=== PATIENT | female | born 1965 | race Caucasian/White ===

== ENCOUNTER 2022-10-18 13:07 | Outpatient (OUT) | payer BC, SELFPAY ==
[2022-10-18 15:32] LABS: Basophils Percent Auto 0.6 % (0.2-2.0); Eosinophils Absolute Auto 0.1 10^3/uL (0.0-0.7); Eosinophils Percent Auto 1.1 % (0.9-7.0); Hematocrit 41.7 % (36.0-48.0); Hemoglobin 13.7 g/dL (12.0-16.0); Immature Granulocytes Abs Auto 0.03 10^3/uL (0.00-0.03); Immature Granulocytes Pct Auto 0.5 % (0.0-0.5); Lymphocytes Absolute Auto 1.2 10^3/uL (1.2-3.8); Lymphocytes Percent Auto 19.3 % (20.5-60.0); Mean Corpuscular HGB Conc 32.9 g/dL (29.9-35.2); Mean Corpuscular Hemoglobin 30.4 pg (26.7-34.0); Mean Corpuscular Volume 92.7 fL (81.0-99.0); Mean Platelet Volume 10.9 fL (9.5-13.5); Monocytes Absolute Auto 0.6 10^3/uL (0.3-0.8); Monocytes Percent Auto 9.5 % (1.7-12.0); Neutrophils Absolute Auto 4.4 10^3/uL (1.4-6.5); Platelet Count 249 10^3/uL (150-450); Red Cell Distribution Width 12.3 % (11.0-15.0); White Blood Count 6.4 10^3/uL (4.0-11.0)
[2022-10-18 15:40] LABS: INR 0.93; Partial Thromboplastin Time 31.3 sec (22.3-36.2); Prothrombin Time 9.9 sec (9.0-11.6)
[2022-10-18 22:20] LABS: Anion Gap 13.8; BUN Creatinine Ratio 10.1; Calcium 8.7 mg/dL (8.5-10.1); Carbon Dioxide 26.1 mmol/L (21.0-32.0); Chloride 101 mmol/L (98-107); Estimated GFR (African America >60 (>=60); Estimated GFR (Non-African Ame >60 (>=60); Glucose 121 mg/dL (74-106); Potassium 3.9 mmol/L (3.5-5.1); Sodium 137 mmol/L (136-145)
== END 2022-10-18 13:08 ==
LOC: PST 13:11
PROVIDERS: Urology; PCP Family Medicine
DX: N20.0 Calculus of kidney (principal)
CPT/HCPCS: 36415; 80048; 85025; 85610; 85730

== ENCOUNTER 2022-10-25 12:51 | Day surgery (SDC) | payer BC, SELFPAY ==
[2022-10-18 13:39] VITALS: BMI 28.6
[2022-10-18 16:26] VITALS: BP 146/96; PULSE 93; RESP 18; TEMP 36.4; O2SAT 97
[2022-10-25] VITALS (7 sets, daily range): BP systolic 143–162; BP diastolic 74–95; PULSE 62–79; RESP 10–18; TEMP 36–36.1; O2SAT 96–99; BMI 26.6
[2022-10-25] MEDS: LACTATED RINGER'S SOLUTION 1,000 ML 50 ML IV ×2 (15:59→18:17)
[2022-10-25] MEDS: CEFAZOLIN SODIUM/DEXTROSE 2 GM/50 ML PIGGYBACK IV (16:01)
[2022-10-25] MEDS: IOHEXOL 240 MG/ML - 10 ML VIAL INJ (18:12)
--- NOTE | 2022-10-25 18:20 | P.URON_ITS ---
Urology Surgery Operative Note Operative Note Procedure Date: 10/25/22 Pre-op Diagnosis: Right nephrolithiasis Post-op Diagnosis: Right nephrolithiasis Primary Surgeon: Aubrie Nolasco Procedure performed: Cystoscopy, right retrograde pyelogram, right ureteroscopy with laser lithotripsy, stone basket extraction, ureteral stent placement Anesthesiologist: Joao Jean Time Out Performed: yes Findings: Uneventful laser lithotripsy and basket extraction of 4 stones in kidney ranging from 3-7mm, largest requiring laser lithotripsy to extract. No significant stone fragments remained. R RPG- no hydronephrosis, strictures or extravasation of contrast. Estimated blood loss (mL): 0 DVT Prophylaxis: SCD Post Operative care instructions: Dc home, follow up in 5 days for cysto/stent removal in office Procedure Note Procedure: Indication: 57 year old female with history of recurrent nephrolithiasis including multiple right kidney stones presents for definitive treatment with right ureteroscopy, laser lithotripsy/stone extraction. Risks were discussed to include but not limited to bleeding, pain, infection, damage to surrounding structures, inability to treat the stone, residual fragments, ureteral obstruction, need for stent placement and need for additional procedures. If a stent is placed, the patient understands this is not permanent and needs to be removed or exchanged within 3 months to prevent encrustation, infection, invasive procedures, and/or permanent renal damage. Procedure details: After informed consent was obtained, the patient was brought to the operating room and transferred onto the operating table in supine position. Sequential compression devices were placed on bilateral lower extremities. The patient received the appropriate dose of preoperative IV antibiotics (2g Ancef) and general anesthesia LMA was induced. They were positioned in modified dorsolithotomy with the appropriate pressure points padded, prepped, and draped in the usual sterile fashion for this procedure. An operative safety timeout was performed confirming the patient's identity, laterality and procedure, and all present agreed to proceed. I began by inserting a 22 [place]ic rigid cystoscope with 30 degree lens into the patient's urethra and bladder without difficulty. There were no bladder tumors, lesions or foreign bodies. Bilateral ureteral orifices were orthotopic and vázquez nt. I turned my attention to the right ureteral orifice and a 6- Green[place]ic open- ended catheter was inserted into the ureteral orifice and dilute contrast was injected for retrograde pyelogram with findings above. A sensor wire was inserted into the ureter up to the renal pelvis confirmed on fluoroscopy. An 11/ Green[place]ic by 36 cm ureteral access sheath was inserted over the wire in a sequential fashion under fluoroscopic guidance to gain access to the renal pelvis without difficulty. A flexible ureteroscope was inserted into the sheath and renoscopy was performed with findings above. A 2.4 tipless nitinol basket was used to extract the smaller stones. The larger stone required lithotripsy. A 275 ?m holmium laser fiber was used to break the stone into fragments which were then removed with a 2.4 tipless nitinol basket. After the stone was adequately treated, a full renoscopy was performed confirming no significant residual stones or fragments remained. Contrast was injected to assist with mapping for the renoscopy. The wire was reinserted and a pull down ureteroscopy was performed confirming no stones remained in the ureter. The wire was backloaded through the cystoscope and 4.7Fr x 22-32cm JJ variable length Bard ureteral stent was advanced over the wire, noting adequate curl in the renal pelvis and bladder on fluoroscopic and direct visualization. The bladder was drained and inspected one final time to ensure adequate position of stent and no undue trauma to the bladder was done. The stones were sent for pathology and the cystoscope was removed. The patient tolerated the procedure well without complication. The patient was awakened from anesthesia and sent to PACU in stable condition. Pathology: other (right kidney stones) Condition: stable Disposition: same day
--- NOTE | 2022-10-25 18:37 | PC.NURSE ---
up to bathroom and void bloody urine without clots without difficulty
[2022-10-31 19:08] LABS: Calcium Oxalate Dihydrate 20 % (.); Calcium Oxalate Monohydrate 70 % (.); Calcium phosphate (hydroxyl) 10 % (.)
== END 2022-10-25 18:54 | disposition home or self-care (01) ==
PROVIDERS: PCP Family Medicine; Visit Provider Urology
PROC: (CPT 52356; principal; 2022-10-25 13:50)
DX: N20.0 Calculus of kidney (principal); N32.81 Overactive bladder; C68.0 Malignant neoplasm of urethra; Z79.82 Long term (current) use of aspirin; Z90.710 Acquired absence of both cervix and uterus; N35.82 Other urethral stricture, female; R31.21 Asymptomatic microscopic hematuria; N36.42 Intrinsic sphincter deficiency (ISD); Z87.442 Personal history of urinary calculi
CPT/HCPCS: 52356; 36415; 74420; 82365; 99999; J2704; Q9966

== ENCOUNTER 2022-12-22 13:53 | Outpatient (RCR) | payer BC, SELFPAY ==
[2022-12-22 14:46] LABS: Calcium 8.3 mg/dL (8.5-10.1); Estimated GFR (African America >60 (>=60); Estimated GFR (Non-African Ame 52 (>=60)
[2022-12-22 15:27] VITALS: BP 122/76; PULSE 62; RESP 18; TEMP 37; O2SAT 94
[2022-12-22] MEDS: DENOSUMAB 60 MG/ML SYRINGE SUBQ (15:33)
== END 2023-01-11 17:50 | disposition home or self-care (01) ==
LOC: LAB 13:53
PROVIDERS: PCP Family Medicine; Visit Provider Family Medicine
DX: M85.80 Other specified disorders of bone density and structure, unspecified site (principal)
CPT/HCPCS: 36415; 82310; 82565; 96372; J0897

== ENCOUNTER 2023-06-04 13:25 | Outpatient (OUT) | payer BC, SELFPAY ==
--- NOTE | 2023-06-04 13:31 | XR_ITS ---
The [address] [address] Patient Name: CARMELO CHUNG MRN: [id number] date: 1965 Sex: F Assigned Patient Location: [facility] Current Patient Location: [facility] Accession/Order Number: [id number] Exam Date: 06/04/2023 13:45 Report Date: 06/04/2023 14:13 At the request of: KAILASH TOLEDO Procedure: XR abdomen 1V EXAM: XR abdomen 1V HISTORY: Kidney Stones N20.0 COMPARISON: None. TECHNIQUE: AP view of the abdomen. FINDINGS: Nonobstructive bowel gas pattern is noted. There is no suspicious calcification. The osseous structures are intact. XR/XR abdomen 1V IMPRESSION: Nonobstructive bowel gas pattern. Constipation. No suspicious renal calcification. Electronically authenticated by: LUDMILA KWAN Date: 06/04/2023 14:13
== END 2023-06-04 13:26 | disposition home or self-care (01) ==
LOC: RAD 13:27
PROVIDERS: PCP Family Medicine; Visit Provider Physician Assistant
DX: N20.0 Calculus of kidney (principal)
CPT/HCPCS: 74018

== ENCOUNTER 2023-06-06 09:28 | Outpatient (OUT) | payer BC, SELFPAY ==
--- NOTE | 2023-06-06 09:31 | US_ITS ---
[place] [id number] Patient Name: CARMELO CHUNG MRN: [id number] date: 1965 Sex: F Assigned Patient Location: [place] Current Patient Location: [place] Accession/Order Number: [id number] Exam Date: 06/06/2023 09:32 Report Date: 06/06/2023 10:35 At the request of: KAILASH TOLEDO Procedure: US renal BI EXAMINATION: US renal BI HISTORY: Kidney Stone N20.0 COMPARISON: No relevant comparison available. TECHNIQUE: Ultrasound examination was performed of the bladder. FINDINGS: Right Kidney: Normal in size and contour. The cortex measures 0.8 cm. No hydronephrosis, solid cortical mass or obstructing nephrolithiasis Height: 4.5 cm Length: 9.5 cm Width: 5.7 cm Left Kidney: Normal in size and contour. The cortex measures 0.8 cm. No hydronephrosis or solid cortical mass. Multiple echogenic foci measuring up to 6 mm, nonobstructing nephrolithiasis Height: 4.0 cm Length: 9.4 cm Width: 4.2 cm The urinary bladder measures 5.0 x 5.6 x 4.0 cm a volume of 78 mL US/US renal BI IMPRESSION: Nonobstructing left nephrolithiasis Electronically authenticated by: BENI ORTIZ Date: 06/06/2023 10:35
--- OUTSIDE RECORDS SUMMARY | 2023-06-06 09:32 | XMS_ITS | CCD ---
Author Name Unknown Address [address] [facility] [address] [place] [address] Organization [facility] Care Team Providers Care Revenue Director Name Role Phone Phillip Unger Primary Care Physician LUE ., AUBRIE M Attending Unavailable LUE ., AUBRIE M Admitting Unavailable HOY ., DR FISHER Primary Care Unavailable DIAB ., CHANEL Attending Unavailable HOLiz ., DR FISHER Primary Care Unavailable SHIRLENE, FRANCK Consulting Unavailable DIAB ., CHANEL Admitting Unavailable SOPHIA . NATALIO Consulting Unavailable DIAB ., CHANEL Consulting Unavailable ZOHREH .DR FISHER Primary Care Unavailable EUGENIO DIAMOND Attending Unavailable EUGENIO DIAMOND Admitting Unavailable LUE ., AUBRIE M Attending Unavailable LUE ., AUBRIE M Admitting Unavailable HOY .DR FISHER Primary Care Unavailable LUE ., AUBRIE M Consulting Unavailable LUE ., AUBRIE M Attending Unavailable LUE ., AUBRIE M Admitting Unavailable LUE ., AUBRIE M Consulting Unavailable HOY .DR FISHER Primary Care Unavailable ERMA ISSA Consulting Unavailable JEMMA GANNON Consulting Unavailable LUE ., AUBRIE M Attending Unavailable LUE ., AUBRIE M Admitting Unavailable HOY .DR FISHER Primary Care Unavailable LUE ., AUBRIE M Consulting Unavailable LUE ., AUBRIE M Consulting Unavailable LUE ., AUBRIE M Attending Unavailable LUE ., AUBRIE M Admitting Unavailable HOY .DR FISHER Primary Care Unavailable CLARISSA VILLALTA Consulting Unavailable ZOHREH .DR FISHER Primary Care Unavailable DR JUDSON ENGLISH Consulting Unavailable ANABEL LOPEZ Attending Unavailable ANABEL LOPEZ Admitting Unavailable ANABEL LOPEZ Consulting Unavailable ZOHREH .DR FISHER Consulting Unavailable HOY ., DR FISHER Attending Unavailable HOY ., DR FISHER Admitting Unavailable HOY ., DR FISHER Primary Care Unavailable NADEGE GANNON Consulting Unavailable KAILASH TOLEDO Attending Unavailable KAILASH TOLEDO Admitting Unavailable HOY ., DR FISHER Primary Care Unavailable TAMEKA, DR JUDSON Valera Consulting Unavailable KAILASH TOLEDO Consulting Unavailable HOY ., DR FISHER Primary Care Unavailable GINO Velez, DR TRACY Sexton Attending Unavaila ble GINO ROE ., DR TRACY Sexton Admitting Unavaila ble ZOHREH ., DR FISHER Primary Care Unavailable LOBO, EUGENIO Raya Attending Unavailable HIGHLANDER, EUGENIO Raya Admitting Unavailable HOY ., DR FISHER Consulting Unavailable HOY ., DR FISHER Attending Unavailable HOY ., DR FISHER Admitting Unavailable HOY ., DR FISHER Primary Care Unavailable HOY ., DR FISHER Consulting Unavailable HOY ., DR FISHER Attending Unavailable HOY ., DR FISHER Admitting Unavailable HOY ., DR FISHER Primary Care Unavailable [place], DR BENI Lugo Consulting Unavailable LUE ., AUBRIE Fernandez Attending Unavailable LUE ., AUBRIE Fernandez Admitting Unavailable [place], DR BENI Lugo Consulting Unavailable HOY ., DR FISHER Primary Care Unavailable LUE ., AUBRIE Fernandez Consulting Unavailable HOY ., DR FISHER Primary Care Unavailable [place], DR BENI Lugo Consulting Unavailable MIRZAANDER, EUGENIO Raya Attending Unavailable HIGHLANDER, EUGENIO D Admitting Unavailable HIGHLANDER, PETER D Consulting Unavailable Lue, Aubrie M. Referring Unavailable Lue, Aubrie M. Admitting Unavailable Lue, Aubrie M. Attending Unavailable Lue, Aubrie M. Attending Unavailable Lue, Aubrie M. Attending Unavailable Lue, Aubrie M. Attending Unavailable Lue, Aubrie M. Attending Unavailable Lue, Aubrie M. Attending Unavailable Lue, Aubrie M. Attending Unavailable Lue, Aubrie M. Attending Unavailable Allergies Allergy Classification Reported Allergen(s) Allergy Type Date of Onset Reaction(s) Facility (1 source) No Known Medication Allergies; 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: [No Known Medication Allergies] Propensity to adverse reactions (disorder) [facility] Repository Medications Current Medications Medication Drug Class(es) Dates Sig (Normalized) Sig (Original) ALPRAZolam 0.25 mg oral tablet (2 sources) Benzodiazepine Start: 03-24-2022 take 4 tablets by mouth every eight hours Xanax 0.25 mg Tab mg tab(s), Oral, q8hr, Refills(s) 0 Start Date: 03/24/22 Status: Ordered ARIPiprazole 2 mg oral tablet (5 sources) Atypical Antipsychotic Start: 06-16-2022 take 1 mg by mouth once daily Abilify 2 mg Tab mg tab(s), Oral, Daily Start Date: 06/16/22 Status: Ordered aspirin 81 mg chewable tablet (2 sources) Platelet Aggregation Inhibitor, Nonsteroidal Anti-inflammatory Drug Start: 08-09-2021 take 1 tablet by mouth once daily Aspirin 81 mg Tab-Chew 81 mg = 1 tab(s), Oral, Daily, Refills(s) 0 Start Date: 08/09/21 Status: Ordered Aspirin 81 mg Tab-Chew (5 sources) Start: 08-09-2021 take 1 tablet by mouth once daily Aspirin 81 mg Tab-Chew 81 mg = 1 tab(s), Oral, Daily, Refills(s) 0 Start Date: 08/09/21 Status: Ordered diazePAM 10 mg oral tablet (1 source) Benzodiazepine Start: 03-24-2022 take 1 tablet by mouth once as needed for anxiety Valium 10 mg Tab 10 mg = 1 tab(s), Oral, Once, PRN for anxiety, Take one hour before procedure, # 1 tab(s), Refills(s) 0, Pharmacy: [facility] [id number], 161, cm, 03/24/22 13:34:00 EST, Height/Length Dosing, 65, kg, 05/10/21 12:23:00 EST, Weight Dosing Start Date: 03/24/22 Status: Ordered escitalopram 10 mg oral tablet (7 sources) Serotonin Reuptake Inhibitor Start: 06-03-2020 take 1 tablet by mouth once daily Lexapro 10 mg Tab 10 mg = 1 tab(s), Oral, Daily Start Date: 06/03/20 Status: Ordered estradiol 0.1 mg/ml vaginal cream (7 sources) Estrogen Start: 06-16-2022 Estrace 0.1 mg/g Cream See Instructions, 42.5 gm, Refill(s) 3, Apply pea sized amount to urethra/vagina 3-5x/week x 2 weeks, then 2x weekly thereafter, [facility] [id number], 161, cm, 06/16/22 11:27:00 EST, Height/Length Dosing, 70.1, kg, 06/16/22 11:27:00 EST, Weight Dosing Start Date: 06/16/22 Status: Ordered Start: 01-28-2021 Estrace 0.1 mg /g Cream 1 gm, Topical, MonWedFri, 42.5 gm, Refill(s) 11, Apply peasize amount to urethral/vaginal area M-W-F for two weeks. Then twice weekly after., [facility]/pharmacy #[id number], 163, cm, 01/28/21 9:13:00 EDT, Height/Length Dosing, 65, kg, 01/28/21 9:13:00 EDT, Weigh... Start Date: 01/28/21 Status: Ordered Start: 01-28-2021 Estrace 0.1 mg /g Cream 1 gm, Topical, MonWedFri, 42.5 gm, Refill(s) 11, Apply peasize amount to urethral/vaginal area M-W-F for two weeks. Then twice weekly after., [facility]/pharmacy #[id number], 163, cm, 01/28/21 9:13:00 EDT, Height/Length Dosing, 65, kg, 01/28/21 9:13:00 EDT, Weigh... Start Date: 01/28/21 Status: Ordered hydroCHLOROthiazide 12.5 mg oral capsule (5 sources) Thiazide Diuretic Start: 10-11-2022 take 1 mg by mouth once daily hydrochlorothiazide 12.5 mg Cap mg cap(s), Oral, Daily, Refills(s) 0 Start Date: 10/11/22 Status: Ordered Start: 08-10-2020 take 1 tablet by robyn once daily hydrochlorothiazide 25 mg oral tablet 25 mg = 1 tab(s), Oral, Daily, # 90 tab(s), Refills(s) 3, Pharmacy: [facility]/pharmacy #[id number], 163, cm, 08/10/20 15:02:00 EDT, Height/Length Dosing, 65.5, kg, 08/10/20 15:02:00 EDT, Weight Dosing Start Date: 08/10/20 Status: Ordered metaproterenol (2 sources) beta2-Adrenergic Agonist Start: 03-24-2022 take 1 mg by mouth every six hours metaproterenol mg, Oral, q6hr, Refills(s) 0 Start Date: 03/24/22 Status: Ordered 24 hr mirabegron 50 mg extended release oral tablet (5 sources) beta3-Adrenergic Agonist Start: 06-16-2022 End: 05-30-2024 take 1 tablet by mouth once daily Myrbetriq 50 mg oral tablet, extended release 50 mg = 1 tab(s), Oral, Daily, X 30 day(s), # 30 tab(s), Refills(s) 11, Pharmacy: [facility] [id number], 161, cm, 06/05/23 9:09:00 EST, Height/Length Dosing, 78, kg, 06/05/23 9:09:00 EST, Weight Dosing Start Date: 06/05/23 Stop Date: 05/30/24 Status: Ordered mirtazapine 30 mg oral tablet (5 sources) Start: 06-16-2022 take 1 mg by mouth once daily at bedtime Remeron 30 mg Tab mg tab(s), Oral, Once a day (at bedtime) Start Date: 06/16/22 Status: Ordered solifenacin succinate 5 mg oral tablet (1 source) Cholinergic Muscarinic Antagonist Start: 06-14-2021 take 1 tablet by mouth once daily Vesicare 5 mg Tab 5 mg = 1 tab(s), Oral, Daily, # 30 tab(s), Refills(s) 2, Pharmacy: [facility]/pharmacy #[id number], 163, cm, 01/28/21 9:13:00 EDT, Height/Length Dosing, 65, kg, 05/10/21 12:23:00 EST, Weight Dosing Start Date: 06/14/21 Status: Ordered Vitamin D (6 sources) Start: 03-24-2022 Vitamin D International_Unit , Oral, qWeek, Refills(s) 0 Start Date: 03/24/22 Status: Ordered Completed/Discontinued Medications Medication Drug Class(es) Dates Sig (Normalized) Sig (Original) cephalexin 500 mg oral capsule (1 source) Cephalosporin Antibacterial Start: 03-24-2022 take 1 capsule by mouth every twelve hours Keflex 500 mg Cap 500 mg = 1 cap(s), Oral, q12hr, Take one cap morning of the procedure and one cap 12 hours later, # 2 cap(s), Refills(s) 0, Pharmacy: [facility] [id number], 161, cm, 11/11/22 13:34:00 EST, Height/Length Dosing, 65, kg, 05/10/21 12:23:00 EST, Weight... 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 Essential hypertension (1 source) Essential (primary) hypertension; 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: [ESSENTIAL PRIMARY HYPERTENSION] Onset: 06-27-2022 Chronic Fracture of lower limb (4 sources) Displaced avulsion fracture (chip fracture) of left talus, initial encounter for closed fracture; 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: [DSPL AVUL FX LT TALUS INIT CLOS FX] Onset: 08-02-2022 Episodic Genitourinary congenital anomalies (1 source) Medullary cystic kidney; 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: [MEDULLARY CYSTIC KIDNEY] Onset: 06-28-2022 Chronic Genitourinary symptoms and ill-defined conditions (15 sources) Incontinence; 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: [Urinary incontinence] Onset: 06-28-2022 06-03-2020 Chronic Genitourinary symptoms and ill-defined conditions (20 sources) Nocturia; 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: [Nocturia] Onset: 08-09-2021 Episodic Hyperplasia of prostate (7 sources) Benign prostatic hypertrophy with outflow obstruction 08-10-2020 Chronic Nutritional deficiencies (1 source) Vitamin D deficiency, unspecified; 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: [VITAMIN D DEFICIENCY UNSPECIFIED] Onset: 07-25-2022 Chronic Osteoarthritis (5 sources) Primary osteoarthritis, left ankle and foot; 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: [Unspecified osteoarthritis, unspecified site] Onset: 06-27-2022 Chronic Other connective tissue disease (1 source) Myalgia, unspecified site; 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: [MYALGIA UNSPECIFIED SITE] Onset: 07-25-2022 Episodic Other diseases of bladder and urethra (5 sources) Detrusor overactivity; 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: [Overactive bladder] Onset: 08-09-2021 Chronic Other diseases of bladder and urethra (7 sources) Contracture of bladder neck 08-10-2020 Chronic Other diseases of bladder and urethra (7 sources) Overactive bladder 05-10-2021 Chronic Other diseases of bladder and urethra (1 source) Overactive bladder; 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: [OVERACTIVE BLADDER] Onset: 06-28-2022 Chronic Other diseases of bladder and urethra (12 sources) Urethral stricture; 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: [Other urethral stricture, female] Onset: 08-09-2021 Episodic Other diseases of bladder and urethra (2 sources) Incompetent urethral closure mechanism; 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: [Intrinsic sphincter deficiency (ISD)] Onset: 10-11-2022 Episodic Other diseases of bladder and urethra (5 sources) Urethral intrinsic sphincter deficiency; 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: [Intrinsic sphincter deficiency (ISD)] Onset: 06-05-2023 10-11-2022 Episodic Other non-traumatic joint disorders (4 sources) Other specified arthritis, left ankle and foot; 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: [OTHER SPEC ARTHRITIS LT ANKLE FOOT] Onset: 07-20-2022 Chronic Other non-traumatic joint disorders (1 source) Pain in unspecified joint; 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: [PAIN IN UNSPECIFIED JOINT] Onset: 07-25-2022 Episodic Sprains and strains (4 sources) Sprain of unspecified ligament of left ankle, initial encounter; 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: [SPRAIN UNS LIGAMENT LT ANKLE INIT] Onset: 07-27-2022 Episodic Unclassified (5 sources) Asymptomatic microscopic hematuria 06-16-2022 Past or Other Problems Problem Classification Problem Date Documented Da te Episodic/Chronic Other aftercare (1 source) Other oysterman (current) drug therapy; 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: [OTH LONGTERM CURRENT DRUG THERAPY] Onset: 06-27-2022 Episodic Other aftercare (1 source) [facility] (current) use of aspirin; 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: [LONGTERM CURRENT USE OF ASPIRIN] Onset: 06-28-2022 Episodic Other diseases of bladder and urethra (1 source) Other urethral stricture, female; 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: [OTHER URETHRAL STRICTURE FEMALE] Onset: 06-28-2022 Episodic Other diseases of bladder and urethra (4 sources) Unspecified urethral stricture, female; 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: [UNSP URETHRAL STRICTURE FEMALE] Onset: 04-12-2022 Episodic Other non-traumatic joint disorders (1 source) Pain in unspecified hip; 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: [PAIN IN UNSPECIFIED HIP] Onset: 07-14-2022 Episodic Residual codes; unclassified (1 source) Acquired absence of other specified parts of digestive tract; 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: [ACQ ABSENCE OTH PART DIGESTV TRACT] Onset: 06-27-2022 Episodic Residual codes; unclassified (1 source) Acquired absence of both cervix and uterus; 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: [ACQUIRED ABSENCE BOTH CERVIX AND UTERUS] Onset: 06-28-2022 Episodic Results Test Name Value Interpretation Reference Range Facility Patient Letter FTon 2022 Patient Letter [facility] March 27, 2023 ELI CHUNG [address] [place] [phone] : 1965 Sent via certified and regular mail Dear Eli, I am corresponding to you by certified mail because you have a medical condition, history of kidney stone with hydronephrosis which requires follow up. It was recommended that you follow up with me with a renal ultrasound and metabolic work up so that I may conclude your treatment for kidney stones. My office has tried contacting you on 01/03/23, 01/17/23 and via letter on 02/21/23 and we have not received a response. Risk's of not following up and completing recommended testing include renal damage, silent ureteral obstruction post stent removal. Please contact my office at your earliest convenience and we will reschedule your appointment/testing so I can closely monitor your condition. I cannot be responsible for your urologic care if you do not follow up as recommended. Non compliance may result in dismissal from the practice. Thank you for your prompt attention to this matter. Sincerely, Dr. Aubrie Nolasco MD [facility] [address] [facility], [place] [address] Aubrie Nolasco M.D. [facility] [place] [address] [place] [address] [facility] Reminderson 03-27-2023 Reminders - From: Patricia Campoverde To: BRANDAN Nolasco; Sent: 10/30/2022 10:33:15 EDT Show up: 11/27/2022 00:00:00 EDT Subject: schedule FERNY Reminder/Recall called and schedule FERNY @ [facility] for patient at end of November 2022 - From: Elham López (EU - Recalls Gaurav) To: Aubrie Nolasco MD; Patricia Campoverde; Sent: 12/07/2022 16:12:12 EDT Show up: 12/07/2022 16:06:00 EDT Subject: RE: schedule FERNY Per op note from 10/30/22 pt is to follow up with FERNY in 6wks. No follow up nor FERNY scheduled. Next available appt 01/12/23. How would you like to proceed? - From: Aubrie Nolasco MD To: EU - Recallluis Nolasco; Cc: Patricia Campoverde; Sent: 12/18/2022 19:23:19 EDT Show up: 12/18/2022 19:23:00 EDT Subject: RE: schedule FERNY Call pt to schedule renal US and ensure she completes her metabolic stone workup as discussed at her cysto/stent removal. Schedule follow up afterwards to review. called patient, left message. FERNY order faxed to [facility] to be scheduled. Called pt and left VM to return our call and let us know if she has completed metabolic w/u or FERNY patient still has not called office, Sent unable to contact letter. If no response, will send certified. certified/non certified letter prepared and mailed to patient [facility] Provider Letteron 02-21-2023 Provider Letter February 21, 2023 ELI CHUNG [address] [place] [id number] : 1965 Dear Eli , We have been trying to reach you with no success. It is important that you return our call regarding your Follow up with renal ultrasound post stent removal upon receiving this letter. Also, at the time of your call, please provide us with your current information. Thank you for your prompt attention to this matter. Sincerely, Dr. Aubrie Nolasco MD [facility] [address] [facility], [place] [address] [facility] Lab Reportson 11-05-2022 Lab Reports [id number] #1.00CD:127 [facility] Pre-Certification Formon Pre-Certification Form [id number] 1#1.00CD:127 [facility] Operative Reporton Operative Report [id number]# 1.00CD:127 [facility] Consent for Procedure/Surger yon 10-30-2022 Consent for Procedure/Surgery [id number]# 1.00CD:127 [facility] Consent for Treatmenton 10-12 Consent for Treatment [id number] #1.00CD:127 [facility] Inpatient Patient Summaryon 10-30-2022 Inpatient Patient Summary [address] [address] Clinical Summary Person Information Name: ELI CHUNG Age: 57 Years : 1965 Sex: Female PCP: Phillip Unger MD Marital Status: Race: White Ethnicity: Non- or Language: Maori Visit Id: Visit Reason: KIDNEY STONE Speciality: Acuity: Enc Type: Outpatient Med Service: Surgery Arrival: 10/30/2022 08:56:54 Discharge: Dispo Type: Address: [address] [place] [id number] Provider Notes: Diagnosis: Intrinsic sphincter deficiency (ISD); Kidney stone Problems Active Intrinsic sphincter deficiency (ISD) Asymptomatic microscopic hematuria Urinary incontinence OAB (overactive bladder) Incomplete bladder emptying Proteinuria Other urethral stricture, female Urethra cancer Dysuria Microscopic hematuria Kidney stone Mixed incontinence Smoking Status: Functional Status: Sensory Deficits: History of Falls: Mobility Assistance Prior to Admission: ADLs: Current Level of Assistance for Self-Care/Mobility: Cognitive Status: Allergies No Known Medication Allergies Laboratory or Other Results This Visit (last charted value for your 10/30/2022 visit) No Laboratory or Other Results This Visit Measurements: Height: 161 cm Weight: Blood Pressure: Not Valued / Not Valued BMI: Procedures No Procedures Documented Immunizations No Immunizations Documented This Visit Final Med List: aripiprazole (Abilify 2 mg Tab) By Mouth every day. aspirin (Aspirin 81 mg Tab-Chew) 1 Tablets By Mouth every day. ergocalciferol (Vitamin D) By Mouth every week. escitalopram (Lexapro 10 mg Tab) 1 Tablets By Mouth every day. estradiol topical (Estrace 0.1 mg/g Cream) Apply pea sized amount to urethra/vagina 3-5x/week x 2 weeks, then 2x weekly thereafter. Refills: 3. hydrochlorothiazide (hydrochlorothiazide 12.5 mg Cap) By Mouth every day. mirabegron (Myrbetriq 50 mg oral tablet, extended release) 1 Tablets By Mouth every day for 30 Days. Refills: 11. mirtazapine (Remeron 30 mg Tab) By Mouth once a day (at bedtime). Care Team Members: Attending Physician: Aubrie Nolasco MD Consulting Physician: Referring Physician: Aubrie Nolasco MD Follow up: With: Address: When: Aubrie Nolasco [address], [address] [place] [phone] Business (1) [address] [place] [address], [facility] [address] [place] [id number] [phone] Business (1) Comments: Office will schedule Bulkamid and follow up renal US in 6 wks Patient Education Information: EU - Cystoscopy with Stent Removal Discharge Instructions (CUSTOM); EU - Cystoscopy Discharge Instructions (CUSTOM) Normal [facility] IntraOperative Documentson 0 10-30-2022 IntraOperative Documents [id number]# 1.00CD:127 Normal [facility] Main OR Intraoperative Recor don 10-30-2022 Main OR Intraoperative Record IntraOp Document Type FTURO Summary Primary Physician: Aubrie Nolasco MD Finalized Date/Time: 10/30/22 10:26:17 Pt. Name: ELI CHUNG Cordell Ricks/Sex: 1965 Female Med Rec #: [id number] Physician: Aubrie Nolasco MD Financial #: [id number] Pt. Type: O Room/Bed: / Admit/Disch: 10/30/22 08:56:54 - Institution: Case Times FTURO Entry 1 Patient Times In Room 10/30/22 10:01:00 Out Room 10/30/22 10:22:00 Procedure Times Start 10/30/22 10:10:00 Stop 10/30/22 10:17:00 Anesthesia Times Last Modified By: Leta CORRAL, JARREDOR, Karyn 10/30/22 10:15:38 Case Attendance FTURO Entry 1 Entry 2 Entry 3 Case Attendee Aubrie Nolasco MD RN, JARREDOR, Peace Ji Role Performed Surgeon - Primary Brush Or Broom Cutter - Primary Scrub - Primary Time In 10/30/22 10:01:00 10/30/22 10:01:00 10/30/22 10:01:00 Time Out 10/30/22 10:22:00 10/30/22 10:22:00 10/30/22 10:22:00 Procedure CYSTOSCOPY LOCAL WITH CYSTOSCOPY LOCAL WITH CYSTOSCOPY LOCAL WITH STENT REMOVAL(Right) STENT REMOVAL(Right) STENT REMOVAL(Right) Comments Last Modified By: Leta CORRAL, JARREDOR, Leta RN, JARREDOR, Leta RN, JARREDOR, Karyn 10/30/22 Karyn 10/30/22 Karyn 10/30/22 10:15:40 10:15:40 10:15:40 Surgical Procedures FTURO Entry 1 Procedure Description Procedure CYSTOSCOPY LOCAL WITH Modifiers Right STENT REMOVAL Surgeon Description CYSTO RIGHT STENT REMOVAL Primary Procedure Yes Primary Surgeon Aubrie Nolasco MD Start 10/30/22 10:10:00 Stop 10/30/22 10:17:00 Anesthesia Type Local Surgical Service Urology Wound Class 2 - Clean-Contaminated Last Modified By: Leta CORRAL, JARREDOR, Karyn 10/30/22 10:15:43 General Case Data FTURO Pre-Care Text: Classifies surgical wound, implements aseptic technique, initiates traffic control Entry 1 Case Information OR URO 1 FT Case Level None Wound Class 2 - Clean-Contaminated Specialty Urology Preop Diagnosis KIDNEY STONE with stent Postop Same As Preop No placement Postop Diagnosis KIDNEY STONE with stent Outcomes Met? Yes placement Last Modified By: MIREYA Gillette RN, Ruthann 10/30/22 09:13:54 Post-Care Text: The patient is free from signs and symptoms of infection EU IntraOp - FTURO Pre-Care Text: Implements protective measures prior to operative or invasive procedure, confirms identity before the operative or invasive procedure, verifies operative procedure, surgical site, and laterality Entry 1 EU Perioperative Protocols Procedure(s) CYSTOSCOPY LOCAL WITH Patient Identity Birthday, ID Band STENT REMOVAL(Right) Verified (select at Check, Patient least 2): Participation Consents / H and P HandP, Surgery/Procedure Operative Site N/A Verified Consent Marking Verified Surgical Site Yes Laterality Verified n/a Verified Procedure Verified Yes Correct Patient Yes Position Verified Availability Equipment, Medication Time Out Aubrie Nolasco MD, Verified (If Participants Leta CORRAL, JARREDOR, Applicable) Garrison Boss Jessica D Time Out Complete 10/30/22 10:02:00 Allergies Reviewed? Yes Allergies Reviewed Self/Patient With Body Position Frog Legged Prep Area perineala area Prep Agents Betadine Solution Skin. Condition Unable to Visualize Additional None Specimens Collected Vitals - EU Blood Pressure 149/93 Pulse 68 bpm Respirations 16 br/min SPO2 EBL 0 IandO - EU Total Intake 0 mL Total Output 0 mL Outcomes Met? Yes Last Modified By: MIREYA Gillette RN, Ruthann 10/30/22 10:02:54 Post-Care Text: The patient is free from signs and symptoms of injury caused by extraneous objects Sign Out FTURO Entry 1 Before Patient Leaves OR Nurse verbally Yes Nurse verbally n/a confirms with the confirms with the team the name of team that the procedure(s) instrument, sponge, recorded and needle counts are correct (or N/A) Nurse verbally n/a Nurse verbally n/a confirms with the confirms with the team how the team whether there specimen is labeled are any equipment (including patient problems to be name), if applicable addressed Sign Out Complete 10/30/22 10:18:00 Last Modified By: MIREYA Gillette RN, Ruthann 10/30/22 10:15:55 Case Comments Finalized By: MIREYA Gillette RN, Ruthann Document Signatures Signed By: MIREYA Gillette RN, Ruthann 10/30/22 10:15 MIREYA Gillette RN, Ruthann 10/30/22 10:26 Normal [facility] Main OR Preoperative Recordo n 10-30-2022 Main OR Preoperative Record Holding Area Document Type FTURO Summary Primary Physician: Aubrie Nolasco MD Finalized Date/Time: 10/30/22 09:16:09 Pt. Name: ELI CHUNG Cordell Ricks/Sex: 1965 Female Med Rec #: [id number] Physician: Aubrie Nolasco MD Financial #: [id number] Pt. Type: O Room/Bed: / Admit/Disch: 10/30/22 08:56:54 - Institution: Case Times Holding FTURO Pre-Care Text: Verifies consent for planned procedure, identifies individual values and wishes concerning care, includes family members in perioperative teaching Secures patient's records' belongings, and valuables, maintains patient's dignity and privacy, and maintains patient confidentiality Entry 1 In Holding 10/30/22 09:02:00 Outcomes Met? Yes Last Modified By: Kim Peña RN 10/30/22 09:02:38 Post-Care Text: The patient participates in decisions affecting his or her perioperative plan of care The patient's right to privacy is maintained Surgery Checklist FTURO Entry 1 Patient Birthday, ID Band Procedure History and Physical, Identification: Check, Patient Verification: Surgical Consent, With Participation Patient NPO after Midnight: n/a Personal Items: Contact Lenses, Jewelry Personal Items watch x 1; rings x 4 Limitations: up ad aimee Comment: and necklace x 1 Complaints of Pain: No Pain Comment: 0/10 Skin Integrity Dry, Warm Vitals - EU Blood Pressure 149/93 Pulse 68 bpm Respirations 16 br/min SPO2 97 % Additional None RN Reviewed Yes Specimens Collected Last Modified By: Kim Peña RN 10/30/22 09:08:29 Finalized By: MIREYA Gillette RN, Karyn Document Signatures Signed By: Kim Peña RN 10/30/22 09:11 Kim Peañ RN 10/30/22 09:08 Kim Peña RN 10/30/22 09:08 MIREYA Gillette RN, Ruthann 10/30/22 09:16 Normal [facility] Operative Reporton 3 Operative Report Patient: ELI CHUNG Age: 57 years Sex: Female : 1965 Associated Diagnoses: None Author: Aubrie Nolasco MD Procedure Operative Information Details: Date/ Time: 10/30/2022 10:21:00. Pre-Op Dx: Kidney stone ([id number]-XY N20.0, Discharge, Medical), Foreign Body in Bladder - T19.1XXA. Post-Op Dx: Same. Anesthesia Type: Local. Procedure: Local Cystoscopy with Stent Removal. Complications: None. Risks/Benefits/Infor med Consent: Surgical risks, benefits, details of the procedure have been explained to the patient, Full informed consent has been obtained. Intraoperative Information Prepped: The patient was placed in supine position, The patient was prepped with the Betadine solution. Anesthesia: 2% Xylocaine Jelly per urethra. Procedure: Cystoscopy and Right Stent Removal, The flexible Cystoscope was passed in retrograde fashion into the bladder without difficulty, The bladder was viewed in entirety and found to be without tumors or stones, Mild inflammation was seen surrounding the orifice with the stent seen protruding from it, The stent was then grasped and removed in its entirety. Specimens Removed: None. Devices Implanted: None. Vaginal examination: Vaginal mucosa: There is moderate vaginal atrophy The urethra is patent, orthotopic. There are no masses or lesions. There is no urethral hypermobility and FRANCISCA is seen with sitting up and valsalva She is able to correctly identify her pelvic muscles with coaching No significant pelvic organ prolapse . Postoperative Information Discharge: The patient tolerated the procedure well and was subsequently discharged home. Follow up in 6 wks with renal US and metabolic stone workup See separate clinic note regarding discussion of separate issue- ISD with leakage, pt desires to proceed with Bulkamid. Normal [facility] Comment on above: Result Comment: Elec tronically Signed By: Aubrie Nolasco MD\.br\Date and Time Signed: 10/30/22 10:23 EDT Outpatient Surgery Discharge Instructionon 10-30-2022 Outpatient Surgery Discharge Instruction [id number]# 1.00CD:127 Normal [facility] Outpatient Surgery Discharge Instruction [place] [id number] Patient Discharge Instructions PERSON INFORMATION Name: ELI CHUNG Date of : 1965 Current Date: 10/30/2022 10:19:29 PHYSICIANS Admitting Physician: Aubrie Nolasco MD Comment: Discharge Diagnosis: Intrinsic sphincter deficiency (ISD); Kidney stone ELI CHUNG has been given the following list of follow-up instructions, prescriptions, and patient education materials: IF UNABLE TO CONTACT YOUR PHYSICIAN AND YOU FEEL IT IS AN EMERGENCY, GO TO THE NEAREST EMERGENCY ROOM OR CALL 911 Follow up: With: Address: When: Aubrie Nolasco [address] [place] [id number] [phone] Business (1) [address] [id number] [phone] [employer] (1) Comments: Office will schedule Bulkamid and follow up renal US in 6 wks Comment: PATIENT EDUCATION INFORMATION Instructions: Cystoscopy with Stent Removal ? Voiding after the procedure: there may be some pain, burning, urgency, frequency and blood tinged urine following the procedure. These symptoms usually resolve within 2-5 days. Drink the amount of fluid it takes to keep the urine pink to yellow or clear in color. Drinking enough water and fluids will help to ease any discomfort after your procedure. ? If you are having problems that seem out of the ordinary, please call. ? If unable to contact your physician and you feel it is an emergency, go to the nearest emergency room or call 911 ? Diet ? you may resume your normal diet. ? Activity ? you may resume your normal activities ? Call if you have a fever over 100 degrees. Cystoscopy ? Voiding after the procedure: there may be some pain, burning, urgency, frequency and blood tinged urine following the procedure. These symptoms usually resolve within 2-5 days. Drink the amount of fluid it takes to keep the urine pink to yellow or clear in color. Drinking enough water and fluids will help to ease any discomfort after your procedure. ? If you are having problems that seem out of the ordinary, please call. ? If unable to contact your physician and you feel it is an emergency, go to the nearest emergency room or call 911 ? Diet ? you may resume your normal diet. ? Activity ? you may resume your normal activities ? Call if you have a fever over 100 degrees. SHELDON Taylor BRENDA K, have received the attached patient education materials/instructio ns and have verbalized understanding: May we do a follow up call? Yes No I was present when discharge instructions were given Patient Signature Date Clinican/Nurse Signature Date You may receive a survey from [employer] asking you to rate your care experience. Your feedback is important and will help us understand what we do well and how we can improve the quality of care we provide to you, your loved ones and our community. It?s an honor to serve you. Thank you for choosing [facility] Normal [facility] Progress Note-Physicianon Progress Note-Physician Patient: ELI CHUNG Age: 57 years Sex: Female : 1965 Associated Diagnoses: None Author: Gaurav MADRID, Aubrie Cho Health Status Allergies: Allergic Reactions (Selected) No Known Medication Allergies, Allergies (1) Active Reaction No Known Medication Allergies None Documented Current medications: (Selected) Prescriptions Prescribed Estrace 0.1 mg/g Cream: See Instructions, 42.5 gm, Refill(s) 3, Apply pea sized amount to urethra/vagina 3-5x/week x 2 weeks, then 2x weekly thereafter, [facility] [id number], 161, cm, 06/16/22 11:27:00 EST, Height/Length Dosing, 70.1, kg, 06/16/22 11:27:00 EST, Weight Do... Myrbetriq 50 mg oral tablet, extended release: 50 mg = 1 tab(s), Oral, Daily, X 30 day(s), # 30 tab(s), Refills(s) 11, [facility] [id number], 161, cm, 06/16/22 11:27:00 EST, Height/Length Dosing, 70.1, kg, 06/16/22 11:27:00 EST, Weight Dosing Documented Medications Documented Abilify 2 mg Tab: mg tab(s), Oral, Daily Aspirin 81 mg Tab-Chew: 81 mg = 1 tab(s), Oral, Daily, Refills(s) 0 Lexapro 10 mg Tab: 10 mg = 1 tab(s), Oral, Daily Remeron 30 mg Tab: mg tab(s), Oral, Once a day (at bedtime) Vitamin D: International_Unit, Oral, qWeek, Refills(s) 0 hydrochlorothiazide 12.5 mg Cap: mg cap(s), Oral, Daily, Refills(s) 0 Impression and Plan Assessment and Plan: Diagnosis: Intrinsic sphincter deficiency (ISD) (ZKB60-ZD N36.42, Discharge, Medical), Mixed incontinence (JKX33-QZ N39.46, Working, Medical), Kidney stone (IOZ01-FK N20.0, Discharge, Medical). 57 year old female with history of recurrent stones s/p R URS , laser lithotripsy, stone removal, stent placement 10/25/22 and mixed incontinence now stress predominant. 1. ISD - pt complaining of leakage with bending, walking. Leakage noted on exam today, minimal urethral mobility. Discussed risks/benefits of management options including pelvic floor therapy, bulking agents, inserts and sling. After discussion of risks/benefits and failure of pelvic floor therapy at home, she elects to proceed with Bulkamid under MAC - will schedule. We discussed risks/benefits of urethral bulking agent Bulkamid, which is a non-particulate homogenous hydrogel consisting of 97.5% water and 2.5% cross-linked polyacrylamide. At 1 year, overall 77-83% success rate is reported. RCT comparing Bulkamid to tension-free vaginal tape at 1 year report 92% subjectively improved and 66% objectively dry in Bulkamid group vs 100% subjectively cured and 95% dry with TVT. 0% serious complications were reported with Bulkamid vs 9% serious complications with TVT including difficulty emptying bladder, chronic pain, tape protrusion or erosion. At 7 years, 67.1% of the Bulkamid patients reported feeling cured or improved, 11.1% reported no change, and 2.3% reported worsening of incontinence. A total of 19.5% of patients received a subsequent other incontinence procedure. Postoperative complications were transient. Prolonged bladder emptying time was reported in 15.3% of patients and urinary tract infection in 3.5%. Risks of requiring straight cath or temporary catheter were discussed. Additional anesthesia risks discussed. 2. Recurrent nephrolithiasis s/p R URS, laser lithotripsy, stone removal, stent placement 10/25/22 -Continue dietary modifications -Follow-up stone analysis results from [facility] -Patient has Litholink kit at home. She will complete metabolic stone work-up and follow-up in 6 weeks to review -Follow-up in 6 weeks with renal ultrasound to ensure no silent obstruction develops after intervention I spent 41 minutes today with the patient: reviewing tests in preparation to see and discuss them with the patient, documenting clinical information in the electronic health records, care coordination, performing a medical exam and evaluation, counseling and educating the patient, and ordering medications, tests and procedures in caring for the patient. Normal [facility] Comment on above: Result Comment: Elec tronically Signed By: Gaurav MADRID, Aubrie Clayton.br\Date and Time Signed: 10/30/22 12:35 EDT Pre-Certification Formon Pre-Certification Form [id number] #1.00CD:127 Normal [facility] Patient Educationon 10-12-19 Patient Education Urology Urinary Incontinence Urinary incontinence refers to a condition in which a person is unable to control where and when to pass urine. A person with this condition will urinate involuntarily. This means that the person urinates when he or she does not mean to. What are the causes? This condition may be caused by: ? Medicines. ? Infections. ? Constipation. ? Overactive bladder muscles. ? Weak bladder muscles. ? Weak pelvic floor muscles. These muscles provide support for the bladder, intestine, and, in women, the uterus. ? Enlarged prostate in men. The prostate is a gland near the bladder. When it gets too big, it can pinch the urethra. With the urethra blocked, the bladder can weaken and lose the ability to empty properly. ? Surgery. ? Emotional factors, such as anxiety, stress, or post-traumatic stress disorder (PTSD). ? Spinal cord injury, nerve injury, or other neurological conditions. ? Pelvic organ prolapse. This happens in women when organs move out of place and into the vagina. This movement can prevent the bladder and urethra from working properly. What increases the risk? The following factors may make you more likely to develop this condition: ? Age. The older you are, the higher the risk. ? Obesity. ? Being physically inactive. ? and childbirth. ? Menopause. ? Diseases that affect the nerves or spinal cord. ? Long-term, or chronic, coughing. This can increase pressure on the bladder and pelvic floor muscles. What are the signs or symptoms? Symptoms may vary depending on the type of urinary incontinence you have. They include: ? A sudden urge to urinate, and passing urine involuntarily before you can get to a bathroom (urge incontinence). ? Suddenly passing urine when doing activities that force urine to pass, such as coughing, laughing, exercising, or sneezing (stress incontinence). ? Needing to urinate often but urinating only a small amount, or constantly dribbling urine (overflow incontinence). ? Urinating because you cannot get to the bathroom in time due to a physical disability, such as arthritis or injury, or due to a communication or thinking problem, such as Alzheimer's disease (functional incontinence). How is this diagnosed? This condition may be diagnosed based on: ? Your medical history. ? A physical exam. ? Tests, such as: ? Urine tests. ? X-rays of your kidney and bladder. ? Ultrasound. ? CT scan. ? Cystoscopy. In this procedure, a health care provider inserts a tube with a light and camera (cystoscope) through the urethra and into the bladder to check for problems. ? Urodynamic testing. These tests assess how well the bladder, urethra, and sphincter can store and release urine. There are different types of urodynamic tests, and they vary depending on what the test is measuring. To help diagnose your condition, your health care provider may recommend that you keep a log of when you urinate and how much you urinate. How is this treated? Treatment for this condition depends on the type of incontinence that you have and its cause. Treatment may include: ? Lifestyle changes, such as: ? Quitting smoking. ? Maintaining a healthy weight. ? Staying active. Try to get 150 minutes of moderate-intensity exercise every week. Ask your health care provider which activities are safe for you. ? Eating a healthy diet. ? Avoid high-fat foods, like fried foods. ? Avoid refined carbohydrates like white bread and white rice. ? Limit how much alcohol and caffeine you drink. ? Increase your fiber intake. Healthy sources of fiber include beans, whole grains, and fresh fruits and vegetables. ? Behavioral changes, such as: ? Pelvic floor muscle exercises. ? Bladder training, such as lengthening the amount of time between bathroom breaks, or using the bathroom at regular intervals. ? Using techniques to suppress bladder urges. This can include distraction techniques or controlled breathing exercises. ? Medicines, such as: ? Medicines to relax the bladder muscles and prevent bladder spasms. ? Medicines to help slow or prevent the growth of a man's prostate. ? Botox injections. These can help relax the bladder muscles. ? Treatments, such as: ? Using pulses of electricity to help change bladder reflexes (electrical nerve stimulation). ? For women, using a medical supervisor to prevent urine leaks. This is a small, tampon-like, disposable device that is inserted into the urethra. ? Injecting collagen or carbon beads (bulking agents) into the urinary sphincter. These can help thicken tissue and close the bladder opening. ? Surgery. Follow these instructions at home: Lifestyle ? Limit alcohol and caffeine. These can fill your bladder quickly and irritate it. ? Keep yourself clean to help prevent odors and skin damage. Ask your health care provider about special skin creams and cleansers that can protect the skin from urine. ? (more content not included)... Normal [facility] Urology Office/Clinic Noteon 10-11-2022 Urology Office/Clinic Note Chief Complaint Follow up KUB HPI Staff S/P Cysto/Lt Ureteroscopy/Lt String stent placement done 06/21/22 Pt removed stent at home 06/24/22. DX: Kidney Stone, Overactive Bladder, Urethral Stricture & Microscopic Hematuria *Myrbetriq 50mg QD therapy started at time of last office visit (06/16/22). Pt states she is taking the medication as needed. (when she doesn't feel empty. PVR today 102ml) *Estradiol Cream *Pt was to complete metabolic work up prior to starting HCTZ. (labs done 06/19/22), never sent urine out to litholink. Pt states she has not gotten this done. Has been taking the HCTZ. Originally prescribed by Dr Christian, Refills have been made by PCP. Stone Analysis 06/21/22 Pt went to [place] [facility] 06/24/22 due to hematuria & Lt flank pain. Given [place] & Zofran at that time. CT 06/24/22 KUB 10/10/22 Did not get FERNY done due to work schedule. Occasional leaking when she bends over. Main Concern for today. Has chronic lower back pain, unsure of it is stone related. No other concerns at this time. History of Present Illness Tests reviewed: reviewed UA, KUB I have reviewed the previous health record information and history for this patient from Dr. Nolasco. I have reviewed and verified the staff HPI to be accurate for this encounter. There have been no associated fever, chills, flank pain, or blood in the urine. Denies any urinary infections since last encounter. Review of Systems PHQ Score Initial Depression Screen Score: 0 ROS - Provider Constitutional: denies weight loss, denies hot flashes. Eyes: denies eye problems. Gastrointestinal: denies nausea, denies vomiting. Cardiovascular: denies chest pain or angina. Integumentary: no dryness Musculoskeletal: denies musculoskeletal symptoms. ENMT: denies otolaryngeal symptoms. Respiratory: no shortness of breath. Heme/Lymph: denies easy bleeding tendency, denies easy bruising tendency. Psychiatric: no confusion, no anxiety. Genitourinary: see HPI Physical Exam Vitals & Measurements HR: 68(Peripheral) RR: 16 BP: 140/78 HT: 63 in HT: 161 cm WT: 78 kg WT: 171.6 lb BMI: 30.09 General Appearance: alert , no acute distress, well nourished, well developed female. Genitourinary: bladder nonpalpable, no flank pain. Assessment/Plan No UA to be given at next visit. 1. Kidney stone (N20.0: Calculus of kidney) S/p ESWL done 06/23/20 DLS - CaPhos 60%, CaOx 40%, low volume. Pt needed stents placed in the past. KUB 04/2021 - Left renal calculi. KUB at [facility] on 08/22/2021 - bilateral stones measuring up to 5mm on both sides. FERNY 08/22/21 shows both on left and right multiple echogenic foci measuring up to 5mm, nonobstructing nephrolithiasis. KUB 03/23/22 -right small calcification projecting over superior pole of right kidney. CT AP wo con 05/12/22 shows bilateral non obstructing renal stones. CT AP wo con 06/24/22 showed mild left hydronephrosis, subcentimeter bilateral renal calyceal stones. Personal review: Right kidney 6 stones: 4 mm x 3 mm stones in RMP, 5 mm x 4 mm in RUP, 4 mm x 3 mm and a 2 mm in RLP/RMP, 1mm in RMP. Left: 4 mm x 3 mm in LMP. 6 stones total. S/p Cysto, Lt RPG, L ureteroscopy, stone basket extract, stent placement on string 06/21/22 Stone analysis- CaOx mono 70%, CaOx dihydrate 20%, hydroxyapatite 10% Pt states she removed stent about 3-4 days after procedure, had pain for 24hrs after removal. Pt is satisfied with this procedure, declined ESWL KUB 10/10/22 showed scattered nonobstructing calculi of right kidney, left negative Pt states she has some current pain on right side, none on left after surgery. Again discussed how treatment of non obstructing stones may not resolve pain. Will schedule Right ureteroscopy, laser litho, Stent Placement (pt to determine on string again or not, needs to be in place x 5 days given pain with early removal last time). The procedure risks, benefits, details and treatment alternatives have been discussed with the patient. These include blood urine, infection, bleeding around the kidney, kidney bruising, inability to break up the stone, need for blood transfusion, stent pain, injury to the ureter, bladder irritation from the stent, flank pain, and need for additional procedures, among others. Full informed consent has been obtained. Will order General anesthesia. -Will wait to do 24hr urine collection until after procedure 2. OAB (overactive bladder) (N32.81: Overactive bladder) Pt denies SEs from Myrbetriq. Discussed Botox and additional therapies in the future. -continue Myrbetriq 50 mg QD. -cont timed voids q2hrs -Behavioral modifications 3. Other urethral stricture, female (N35.82: Other urethral stricture, female) S/P Cysto by Dr. Nolasco done 01/28/2021 noted annular proximal urethral scar tissue. S/p cysto/UD done 04/12/22 showed Proximal urethra/badder neck tightness, release at 26fr and 30fr. Pt thinks dilation helped with frequency some (however prior note states it did not) Pt continues using Estradiol 2x (more content not included)... Normal [facility] Comment on above: Result Comment: Elec tronically Signed By: Aubrie Nolasco MD\.br\Date and Time Signed: 10/11/22 12:19 EDT\.br\Electronically Co-Signed By: Yenny Garcias\.br\Date and Time Co-Signed: 10/11/22 11:12 EDT SHANTA by IFAon 07-25-2022 Antinuclear Antibodies, IFA Positive Abnormal [facility] Comment on above: Result Comment: Nega tive <1:80 Borderline 1:80 Positive >1:80 Performed By: #### C ALCULI #### [facility] [address] [address] [address] Michael Murillo Centriole Pattern Normal [facility] Comment on above: Performed By: #### C ALCULI #### [facility] [address] [address] [address] Michael Murillo Centromere Pattern Normal The [facility] Comment on above: Performed By: #### C ALCULI #### [facility] [address] [address] [address] Michael Murillo Homogeneous Pattern 1:[address] [facility] Comment on above: Result Comment: ICAP nomenclature: AC-1 Performed By: #### C ALCULI #### [facility] [address] [address] [address] Michael Murillo Midbody Pattern Normal The [facility] Comment on above: Performed By: #### C ALCULI #### [facility] [address] [address] [address] Michael Murillo Note: Comment Normal [facility] Comment on above: Result Comment: For more information about Hep-2 cell patterns use ANApatterns.org, the official website for the International Consensus on Antinuclear Antibody (SHANTA) Patterns (ICAP). A positive SHANTA result may occur in healthy individuals (low titer) or be associated with a variety of diseases. See interpretation chart which is not all inclusive: . Pattern Antigen Detected Suggested Disease Association Homogeneous DNA(ds,ss), SLE - High titers Nucleosomes, Histones Drug-induced SLE Speckled Sm, TOWER CLIMBER, SCL-70, SLE,MCTD,PSS (diffuse form), SS-A/SS-B Sjogrens Nucleolar SCL-70, PM-1/SCL High titers Scleroderma, PM/DM Centromere Centromere PSS (limited form) w/Crest syndrome variable Nuclear Dot Sp100,[id number] Primary Biliary Cirrhosis Nuclear GP210, Primary Biliary Cirrhosis Membrane addison A,B,C Performed By: #### C AMANDA #### [facility] [address] [address] [address] Michael Murillo Nuclear Dot Pattern Normal [facility] Comment on above: Performed By: #### C AMANDA #### [facility] [address] [place], [place] [address] Dr. Michael Murillo Nuclear Membrane Pattern Normal [facility] Comment on above: Performed By: #### C AMANDA #### [facility] [address] [address] [address] Michael Murillo Nucleolar Pattern Normal [facility] Comment on above: Performed By: #### C ALCULI #### [facility] [address] [place] [address] Dr. Michael Murillo PCNA Pattern Normal [facility] Comment on above: Performed By: #### C ALCULI #### [facility] [address] [place] [address] Dr. Michael Murillo Speckled Pattern Normal [facility] Comment on above: Performed By: #### C ALCULI #### [facility] [address] [place] [address] Dr. Michael Murillo Spindle Apparatus Pattern Normal [facility] Comment on above: Performed By: #### C ALCULI #### [facility] [address] [place] [address] Dr. Michael Murillo INSULINon 07-22-2022 Insulin 10.8 uIU/mL Normal 2.6-24.9 [facility] Comment on above: Performed By: #### I NSULIN #### [facility] [address] [place] [address] Dr. Michael Murillo CBC AUTO DIFFon 07-21-2022 BASO # 0.1 103/ul Normal 0.0-0.1 [facility] Comment on above: Performed By: #### T 7, TSH, LIPID, CMP #### [facility] [address] [place] [address] Dr. Michael Murillo Basophils/100 WBC (Bld) 0.9 % Normal 0.2-2.0 [facility] Comment on above: Performed By: #### T 7, TSH, LIPID, CMP #### [facility] [address] [place] [address] Dr. Michael Murillo EO # 0.1 103/ul Normal 0.0-0.7 [facility] Comment on above: Performed By: #### T 7, TSH, LIPID, CMP #### [facility] [address] [place] [address] Dr. Michael Murillo Eosinophils/100 WBC (Bld) 2.1 % Normal 0.9-7.0 [facility] Comment on above: Performed By: #### T 7, TSH, LIPID, CMP #### [facility] [address] [place] [address] Dr. Michael Murillo Erythrocyte distribution width (RBC) [Ratio] 12.7 % Normal 11.0-15.0 [facility] Comment on above: Performed By: #### T 7, TSH, LIPID, CMP #### [facility] [address] [place] [address] Dr. Michael Murillo Hematocrit (Bld) [Volume fraction] 39.3 % Normal 36.0-48.0 [facility] Comment on above: Performed By: #### T 7, TSH, LIPID, CMP #### [facility] [address] [place] [address] Dr. Michael Murillo Hemoglobin (Bld) [Mass/Vol] 13.1 g/dL Normal 12.0-16.0 [facility] Comment on above: Performed By: #### T 7, TSH, LIPID, CMP #### [facility] [address] [place] [address] Dr. Michael Murillo IG # 0.02 10e3/ul Normal 0.00-0.03 [facility] Comment on above: Performed By: #### T 7, TSH, LIPID, CMP #### [facility] [address] [place] [address] Dr. Michael Murillo IG % 0.4 % Normal 0.0-0.5 [facility] Comment on above: Performed By: #### T 7, TSH, LIPID, CMP #### [facility] [address] [place] [address] Dr. Michael Murillo LYMPH # 1.5 103/ul Normal 1.2-3.8 [facility] Comment on above: Performed By: #### T 7, TSH, LIPID, CMP #### [facility] [address] [place] [address] Dr. Michael Murillo Lymphocytes/100 WBC (Bld) 25.5 % Normal 20.5-60.0 [facility] Comment on above: Performed By: #### T 7, TSH, LIPID, CMP #### [facility] [address] [place] [address] Dr. Michael Murillo MANUAL DIFF REQ NO Normal [facility] Comment on above: Performed By: #### T 7, TSH, LIPID, CMP #### [facility] [address] [place] [address] Dr. Michael Murillo MCH (RBC) [Entitic mass] 30.1 pg Normal 26.7-34.0 [facility] Comment on above: Performed By: #### T 7, TSH, LIPID, CMP #### [facility] [address] [place] [address] Dr. Michael Murillo MCHC (RBC) [Mass/Vol] 33.3 g/dL Normal 29.9-35.2 [facility] Comment on above: Performed By: #### T 7, TSH, LIPID, CMP #### [facility] [address] [place] [address] Dr. Michael Murillo MCV (RBC) [Entitic vol] 90.3 fL Normal 81.0-99.0 [facility] Comment on above: Performed By: #### T 7, TSH, LIPID, CMP #### [facility] [address] [place] [address] Dr. Michael Murillo MONO # 0.7 103/ul Normal 0.3-0.8 [facility] Comment on above: Performed By: #### T 7, TSH, LIPID, CMP #### [facility] [address] [place] [address] Dr. Michael Murillo Monocytes/100 WBC (Bld) 12.1 % Critically high 1.7-12.0 [facility] Comment on above: Performed By: #### T 7, TSH, LIPID, CMP #### [facility] [address] [place] [address] Dr. Michael Murillo NEUT # 3.4 103/ul Normal 1.4-6.5 [facility] Comment on above: Performed By: #### T 7, TSH, LIPID, CMP #### [facility] [address] [place] [address] Dr. Michael Murillo Neutrophils/100 WBC (Bld) 59.0 % Normal 43.0-75.0 [facility] Comment on above: Performed By: #### T 7, TSH, LIPID, CMP #### [facility] [address] [place] [address] Dr. Michael Murillo Platelet mean volume (Bld) [Entitic vol] 9.5 fL Normal 9.5-13.5 [facility] Comment on above: Performed By: #### T 7, TSH, LIPID, CMP #### [facility] [address] [address] [address] Michael Murillo PLT 253 103/ul Normal 150-450 [facility] Comment on above: Performed By: #### T 7, TSH, LIPID, CMP #### [facility] [address] [place] [address] Dr. Michael Murillo RBC 4.35 106/ul Normal 4.20-5.40 [facility] Comment on above: Performed By: #### T 7, TSH, LIPID, CMP #### [facility] [address] [place] [address] Dr. Michael Murillo WBC 5.7 103/ul Normal 4.0-11.0 [facility] Comment on above: Performed By: #### T 7, TSH, LIPID, CMP #### [facility] [address] [place] [address] Dr. Michael Murillo FREE THYROXINE INDEX T7on FTI 2.45 Normal 1.30-4.50 [facility] Comment on above: Performed By: #### T 7, TSH, LIPID, CMP #### [facility] [address] [place] [address] Dr. Michael Murillo T3U 34.0 % Normal 30.0-39.0 [facility] Comment on above: Performed By: #### T 7, TSH, LIPID, CMP #### [facility] [address] [place] [address] Dr. Michael Murillo T4 [Mass/Vol] 7.20 ug/dL Normal 4.80-13.90 [facility] Comment on above: Performed By: #### T 7, TSH, LIPID, CMP #### [facility] [address] [address] [address] Michael Murillo GLYCOHEMOGLOBIN A1Con 2022 ADA RECOMMENDATION SEE BELOW Normal The [facility] Comment on above: Result Comment: ADA RECOMMENDED LIMIT 4.0 - 6.0 ADA THERAPEUTIC TARGET < 7.0 ACTION SUGGESTED > 7.0 Performed By: #### C ALCULI #### [facility] [address] [address] [address] Michael Murillo Glucose [Mass/Vol] 123 mg/dL Normal The [facility] Comment on above: Performed By: #### C ALCULI #### [facility] [address] [place] [address] Dr. Michael Murillo HbA1c (Bld) [Mass fraction] 5.9 % Normal 4.5-6.2 [facility] Comment on above: Performed By: #### C ALCULI #### [facility] [address] [address] [address] Michael Murillo IRONon 07-21-2022 Iron [Mass/Vol] 110.0 ug/dL Normal 50.0-170.0 [facility] Comment on above: Performed By: #### C ALCULI #### [facility] [address] [place] [address] Dr. Michael Murillo LIPID PROFILEon 07-21-2022 CHOL-HDL RATIO NORM SEE BELOW Normal [facility] Comment on above: Result Comment: 3.3 - 4.4 LOW RISK 4.4 - 7.1 AVERAGE RISK 7.1 - 11.0 MODERATE RISK >11.0 HIGH RISK Performed By: #### T 7, TSH, LIPID, CMP #### [facility] [address] [address] [address] Michael Murillo Cholesterol [Mass/Vol] 257 mg/dL Critically high <=200 [facility] Comment on above: Performed By: #### T 7, TSH, LIPID, CMP #### [facility] [address] [address] [address] Michael Murillo Cholesterol in HDL [Mass/Vol] 89 mg/dL Critically high 40-60 [facility] Comment on above: Performed By: #### T 7, TSH, LIPID, CMP #### [facility] [address] [address] [address] Michael Murillo Cholesterol in LDL [Mass/Vol] 156.4 mg/dL Normal [facility] Comment on above: Performed By: #### T 7, TSH, LIPID, CMP #### [facility] [address] [address] [address] Michael Murillo Cholesterol.total/Chol esterol in HDL [Mass ratio] 2.9 {ratio} Normal [facility] Comment on above: Performed By: #### T 7, TSH, LIPID, CMP #### [facility] [address] [address] [address] Michael Murillo HDL NORMAL > or = 60 mg/dl - LOW CARDIOVASCULAR RISK <40 mg/dl - HIGH CARDIOVASCULAR RISK Normal [facility] Comment on above: Performed By: #### T 7, TSH, LIPID, CMP #### [facility] [address] [place] [address] Dr. Michael Murillo LDL CALC NORMAL SEE BELOW Normal [facility] Comment on above: Result Comment: <100 mg/dl OPTIMAL 100 - 129 mg/dl NEAR OR ABOVE OPTIMAL 130 - 159 mg/dl BORDERLINE HIGH 160 - 189 mg/dl HIGH >190 mg/dl VERY HIGH Performed By: #### T 7, TSH, LIPID, CMP #### [facility] [address] [address] [address] Michael Murillo Triglyceride [Mass/Vol] 58 mg/dL Normal <=150 [facility] Comment on above: Performed By: #### T 7, TSH, LIPID, CMP #### [facility] [address] [address] [address] Michael Murillo VLDL CALC 11.6 mg/dL Normal [facility] Comment on above: Performed By: #### T 7, TSH, LIPID, CMP #### [facility] [address] [place] [address] Dr. Michael Murillo PROF 14(COMP METB)on 023 Albumin [Mass/Vol] 3.8 g/dL Normal 3.4-5.[address] [facility] Comment on above: Performed By: #### T 7, TSH, LIPID, CMP #### [facility] [address] [place] [address] Dr. Michael Murillo Albumin/Globulin [Mass ratio] 1.2 {ratio} Normal [facility] Comment on above: Performed By: #### T 7, TSH, LIPID, CMP #### [facility] [address] [place] [address] Dr. Michael Murillo ALP [Catalytic activity/Vol] 103 U/L Normal 46-116 [facility] Comment on above: Performed By: #### T 7, TSH, LIPID, CMP #### [facility] [address] [place] [address] Dr. Michael Murillo ALT [Catalytic activity/Vol] 38 U/L Normal 14-59 [facility] Comment on above: Performed By: #### T 7, TSH, LIPID, CMP #### [facility] [address] [place] [address] Dr. Michael Murillo Anion gap [Moles/Vol] 10.1 mmol/L Normal [facility] Comment on above: Performed By: #### T 7, TSH, LIPID, CMP #### [facility] [address] [place] [address] Dr. Michael Murillo AST [Catalytic activity/Vol] 27 U/L Normal 15-37 [facility] Comment on above: Performed By: #### T 7, TSH, LIPID, CMP #### [facility] [address] [place] [address] Dr. Michael Murillo Bilirubin [Mass/Vol] 0.4 mg/dL Normal 0.2-1.0 [facility] Comment on above: Performed By: #### T 7, TSH, LIPID, CMP #### [facility] [address] [place] [address] Dr. Michael Murillo Calcium [Mass/Vol] 8.9 mg/dL Normal 8.5-10.[address] [facility] Comment on above: Performed By: #### T 7, TSH, LIPID, CMP #### [facility] [address] [address] [address] Michael Murillo Chloride [Moles/Vol] 107 mmol/L Normal 98-107 [facility] Comment on above: Performed By: #### T 7, TSH, LIPID, CMP #### [facility] [address] [address] [address] Michael Murillo CO2 [Moles/Vol] 29.8 mmol/L Normal 21.0-32.0 [facility] Comment on above: Performed By: #### T 7, TSH, LIPID, CMP #### [facility] [address] [address] [address] Michael Murillo Creatinine [Mass/Vol] 0.86 mg/dL Normal 0.55-1.02 [facility] Comment on above: Performed By: #### T 7, TSH, LIPID, CMP #### [facility] [address] [place] [address] Dr. Michael Murillo EGFR-AF MACANESE >60 Normal >=60 [facility] Comment on above: Performed By: #### T 7, TSH, LIPID, CMP #### [facility] [address] [place] [address] Dr. Michael Murillo EGFR-NON AF MACANESE >60 Normal >=60 [facility] Comment on above: Performed By: #### T 7, TSH, LIPID, CMP #### [facility] [address] [place] [address] Dr. Michael Murillo Globulin (S) [Mass/Vol] 3.2 g/dL Normal [facility] Comment on above: Performed By: #### T 7, TSH, LIPID, CMP #### [facility] [address] [place] [address] Dr. Michael Murillo Glucose [Mass/Vol] 96 mg/dL Normal 74-[address] [facility] Comment on above: Performed By: #### T 7, TSH, LIPID, CMP #### [facility] [address] [address] [address] Michael Murillo Potassium [Moles/Vol] 3.9 mmol/L Normal 3.5-5.1 [facility] Comment on above: Performed By: #### T 7, TSH, LIPID, CMP #### [facility] [address] [address] [address] Michael Murillo Protein [Mass/Vol] 7.0 g/dL Normal 6.4-8.[address] [facility] Comment on above: Performed By: #### T 7, TSH, LIPID, CMP #### [facility] [address] [place] [address] Dr. Michael Murillo Sodium [Moles/Vol] 143 mmol/L Normal 136-145 The [facility] Comment on above: Performed By: #### T 7, TSH, LIPID, CMP #### [facility] [address] [place] [address] Dr. Michael Murillo Urea nitrogen [Mass/Vol] 17.0 mg/dL Normal 7.0-18.0 [facility] Comment on above: Performed By: #### T 7, TSH, LIPID, CMP #### [facility] [address] [place] [address] Dr. Michael Murillo Urea nitrogen/Creatinine [Mass ratio] 19.8 mg/mg Normal [facility] Comment on above: Performed By: #### T 7, TSH, LIPID, CMP #### [facility] [address] [place] [address] Dr. Michael Murillo TSHon 07-21-2022 TSH 2.426 uIU/mL Normal 0.358-3.740 [facility] Comment on above: Performed By: #### T 7, TSH, LIPID, CMP #### [facility] [address] [place] [address] Dr. Michael Murillo VITAMIN D 25 OHon 07-21-2022 VIT D 25-OH 62.1 ng/mL Normal [facility] Comment on above: Performed By: #### C ALCULI #### [facility] [address] [place] [address] Dr. Michael Murillo VIT D RANGES SEE BELOW Normal [facility] Comment on above: Result Comment: <20 ng/mL Vit D deficient 20 - <30 ng/mL Vit D insufficient 30 - 100 ng/mL Vit D sufficient >100 ng/mL Potential Toxicity Performed By: #### C ALCULI #### [facility] [address] [place] [address] Dr. Michael Murillo MRI FOOT LT WO CONon 023 MRI FOOT LT WO CON EXAM: MRI FOOT LT WO CON REASON FOR EXAM: Arthritis of left foot. TECHNIQUE: Multiplanar, multisequence imaging of the left foot was performed without contrast COMPARISON: Prior MRI 03/25/2021. FINDINGS: The Achilles tendon demonstrates normal thickness and signal without tendinosis or tear. The visualized plantar fascia is grossly normal thickness without tear. Laterally, the peroneal tendons demonstrate normal thickness and signal without tendinosis or tear. No definite evidence of ligamentous injury on the lateral side. Medially, the medial flexor tendons demonstrate normal thickness and signal without tendinosis or tear. The deep deltoid ligament is intact. The spring ligament is intact. Lisfranc ligament is intact. Anteriorly, the anterior extensor tendons demonstrate normal thickness and signal without tendinosis or tear. The bone marrow signal is without fracture or osteonecrosis. The talar dome is congruent. Subtalar joints intact. The sinus tarsi is nonedematous. The midfoot is congruent with mild osteoarthritis. The plantar musculature demonstrates normal bulk and signal. Remaining soft tissues are unremarkable. IMPRESSION: 1. Mild midfoot osteoarthritis. 2. No evidence of ligamentous or tendinous injury identified. Electronically authenticated by: NADEGE GANNON Date: 2022-07-20 16:22 Normal [facility] BONE IMAGE 3 PHASEon 06-15 GA BONE IMAGE 3 PHASE EXAMINATION: GA GERTRUDE NE IMAGE 3 PHASE HISTORY: Pain in right hip joint COMPARISON: No relevant comparison available. TECHNIQUE: 25.3 mCi Technetium 99m MDP was injected intravenously followed by acquisition of dynamic flow, immediate blood pool, and delayed static images. FINDINGS: IMAGED AREA: Lower abdomen, pelvis, lower extremities FLOW PHASE: Normal flow in the abdomen and pelvis BLOOD POOL PHASE: Normal blood portable abdomen and pelvis DELAYED IMAGES: No abnormal uptake identified in the abdomen pelvis or hips. Increased activity identified within the left midfoot and hindfoot OTHER: Negative. IMPRESSION: No abnormal activity in the right hip Increased activity in the left hindfoot and midfoot, consider correlation with plain film Electronically authenticated by: BENI ORTIZ Date: 2022-07-10 13:57 Normal [facility] Patient Correspondenceon Patient Correspondence [id number]# 1.00CD:127 Normal [facility] ED Note-Physicianon 06-27-19 ED Note-Physician [id number] #1.00CD:127 Normal [facility] Lab Reportson 06-27-2022 Lab Reports [id number] #1.00CD:127 Normal [facility] Operative Reporton 3 Operative Report [id number] #1.00CD:127 Normal [facility] CALCULI, URINARYon 3 2,8 Dihydroxyadenine Normal [facility] Comment on above: Performed By: #### C ALCULI #### [facility] [address] [place] [address] Dr. Michael Murillo Ammonium Acid Urate Normal [facility] Comment on above: Performed By: #### C ALCULI #### [facility] [address] [place] [address] Dr. Michael Murillo Bilirubin Ql (U) Normal [facility] Comment on above: Performed By: #### C ALCULI #### [facility] [address] [address] [address] Michael Murillo Ca Oxalate Dihydrate 20 % Normal [facility] Comment on above: Performed By: #### C ALCULI #### [facility] [address] [address] [address] Michael Murillo CaHPO4 (Brushite) [facility] Comment on above: Performed By: #### C ALCULI #### [facility] [address] [place] [address] Dr. Michael Murillo Calcium Bilirubinate Normal [facility] Comment on above: Performed By: #### C ALCULI #### [facility] [address] [place] [address] Dr. Michael Murillo Calcium Carbonate Normal [facility] Comment on above: Performed By: #### C ALCULI #### [facility] [address] [address] [address] Michael Murillo Calcium Oxalate Monohydrate 70 % Normal [facility] Comment on above: Performed By: #### C ALCULI #### [facility] [address] [address] [address] Michael Murillo Calcium Palmitate Normal [facility] Comment on above: Performed By: #### C ALCULI #### [facility] [address] [address] [address] Michael Murillo Calcium Phosphate [facility] Comment on above: Performed By: #### C ALCULI #### [facility] [address] [address] [address] Michael Murillo Calcium Stearate Normal [facility] Comment on above: Performed By: #### C ALCULI #### [facility] [address] [place] [address] Dr. Michael Murillo Carbonate Apatite Normal [facility] Comment on above: Performed By: #### C ALCULI #### [facility] [address] [address] [address] Michael Murillo Cellular Material Normal [facility] Comment on above: Performed By: #### C ALCULI #### [facility] [address] [address] [address] Michael Murillo Cholesterol [facility] Comment on above: Performed By: #### C ALCULI #### [facility] [address] [address] [address] Michael Murillo Color (U) Brown Normal [facility] Comment on above: Performed By: #### C ALCULI #### [facility] [address] [address] [address] Michael Murillo Comment Comment [facility] Comment on above: Result Comment: Calc ium phosphate (hydroxyl form) includes hydroxyapatite, amorphous calcium phosphate, and whitlockite. Hydroxyapatite is the most common of the calcium phosphate salts found in human kidney stones. Performed By: #### C ALCULI #### [facility] [address] [place] [address] Dr. Michael Murillo Comment Normal [facility] Comment on above: Performed By: #### C ALCULI #### [facility] [address] [place] [address] Dr. Michael Murillo Comment: Comment Normal [facility] Comment on above: Result Comment: Malissa feldman questions regarding Calculi Analysis [facility] at: [phone]. Performed By: #### C ALCULI #### [facility] [address] [place] [address] Dr. Michael Murillo Composition Comment Normal [facility] Comment on above: Result Comment: Perc entage (Represents the % composition) Performed By: #### C ALCULI #### [facility] [address] [place] [address] Dr. Michael Murillo Cystine Normal [facility] Comment on above: Performed By: #### C ALCULI #### [facility] [address] [place] [address] Dr. Michael Murillo Disclaimer: Comment Normal [facility] Comment on above: Result Comment: This test was developed and its performance characteristics determined by [facility]. It has not been cleared or approved by the Food and Drug Administration. Performed By: #### C ALCULI #### [facility] [address] [place] [address] Dr. Michael Murillo Dried Blood Normal [facility] Comment on above: Performed By: #### C ALCULI #### [facility] [address] [place] [address] Dr. Michael Murillo Drug or Metabolite Normal [facility] Comment on above: Performed By: #### C ALCULI #### [facility] [address] [place] [address] Dr. Michael Murillo Hydroxyapatite 10 % Normal [facility] Comment on above: Performed By: #### C ALCULI #### [facility] [address] [place] [address] Dr. Michael Murillo Mg NH4 PO4 (Struvite) Normal [facility] Comment on above: Performed By: #### C ALCULI #### [facility] [address] [address] [address] Michael Murillo MgHPO4 ([facility]) Normal [facility] Comment on above: Performed By: #### C ALCULI #### [facility] [facility] [address] [address] [address] Michael Murillo Other component(s) Normal [facility] Comment on above: Performed By: #### C ALCULI #### [facility] [address] [address] [address] Michael Murillo PDF . Normal [facility] Comment on above: Performed By: #### C ALCULI #### [facility] [address] [address] [address] Michael Murillo Photo Comment [facility] Comment on above: Result Comment: Phot ograph will follow under a separate cover Performed By: #### C ALCULI #### [facility] [address] [address] [address] Michael Murillo Please note: Comment Normal [facility] Comment on above: Result Comment: Calc antonino report will follow via computer, mail or operations forester delivery. Performed By: #### C ALCULI #### [facility] [address] [address] [address] Michael Murillo Size 3x3 [facility] Comment on above: Result Comment: Mult iple pieces received. Dimensions of the largest piece reported. Performed By: #### C ALCULI #### [facility] [address] [address] [address] Michael Murillo Sodium Acid Urate Normal [facility] Comment on above: Performed By: #### C ALCULI #### [facility] [address] [address] [address] Michael Murillo Source Comment [facility] Comment on above: Result Comment: Left Kidney Performed By: #### C ALCULI #### [facility] [address] [address] [address] Michael Murillo [employer]amte[employer] [facility] Comment on above: Performed By: #### C ALCULI #### [facility] [address] [address] [address] Michael Murillo Uric Acid Normal [facility] Comment on above: Performed By: #### C ALCULI #### [facility] [address] [address] [address] Michael Murillo Uric Acid Dihydrate Normal [facility] Comment on above: Performed By: #### C ALCULI #### [facility] [address] [address] [address] Michael Murillo Weight 37 mg Normal [facility] Comment on above: Performed By: #### C ALCULI #### [facility] [address] [address] [address] Michael Murillo Xanthine [facility] Comment on above: Performed By: #### C ALCULI #### [facility] [address] [address] [address] Michael Murillo Lab Reportson 06-26-2022 Lab Reports [id number] Normal [facility] CT ABD/PELVIS WO CONon 06-25 CT ABD/PELVIS WO CON EXAMINATION: CT ABD/PELVIS WO CON, 06/24/2022 7:52 PM EST HISTORY: nausea and vomiting COMPARISON: CT of the abdomen and pelvis without contrast 05/12/2022. TECHNIQUE: CT scan of the abdomen and pelvis was performed without IV contrast. CT dose reduction technique was used, including Automated Exposure Control. CT abdomen: Minimal supine atelectatic changes noted. Heart size is stable. Small pericardial effusion persists. Cirrhotic change liver may be present. There is mild stable atrophic changes of the medial segment left hepatic lobe. Similar right hepatic and extrahepatic biliary ductal dilatation with prior cholecystectomy. Common hepatic duct for example has transverse diameter of 14 mm. Proximal common bile duct for example has transverse diameter of 11 mm. This tapers as it approaches the ampulla. The spleen, pancreas and adrenals appear unremarkable. 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 A surgical clip is noted adjacent to the inferior right hepatic tip. Subcentimeter right renal calculi are again noted. At least 6 stones are identified. One of the larger midpole calyceal stones for example measures 6 mm. There is asymmetric perinephric stranding and trace fluid about the left kidney. A midpole calculus measures 2 mm. A tiny inferior pole stone is also noted measuring 2 mm. Mild left-sided hydronephrosis and hydroureter with mild thickening of the left renal collecting system noted. CT PELVIS: Urinary bladder is partially distended. Mild thickening of the wall of the bladder base near the intramural segment suspected. Uterus and ovaries are not seen. Bowel pattern is nonobstructive. Multiple pelvic phleboliths are identified. There are a few scattered colonic diverticula. Mild distention of small bowel segments about the abdomen and upper pelvis noted. Small umbilical hernia contains fat without bowel with transverse width of 2.5 cm. Aorta is nonaneurysmal. Degenerative changes of the spine are most apparent at L5/S1. Old healed right lower rib fracture deformities may be present. There is a relatively large sclerotic lesion noted superiorly at the base of the right iliac wing extending into the anterior right ilium. A component of this on image #77 measures 1.6 x 3.8 cm. This has not significantly changed in size. This is similar to that seen on prior MRI lumbar spine study from 12/25/2017. IMPRESSION: 1. Mild left-sided hydronephrosis and hydroureter. There is mild perinephric stranding with trace amount fluid about the left kidney as well as mild urothelial thickening associated with the left ureter. There is mild thickening of the left bladder base near the intramural segment. This may be related to sequela of recently passed stone. Infectious/inflammat ory left-sided pyelonephritis/urete ritis is in the differential. 2. Subcentimeter bilateral renal calyceal stones, greater in size and number on the right as described. 3. Mild stable cardiomegaly with small persistent pericardial effusion. 4. Moderate hepatic and extrahepatic biliary ductal dilatation, mildly progressed. Correlate with liver function test. Prior cholecystectomy. 5. Mild dilatation of small bowel presumably from ileus. Small focal hernia contains fat without bowel. 6. Hysterectomy. 7. Indeterminate sclerotic lesion involving the superior aspect of the anterior right ilium and base of the iliac wing unchanged compared to MRI study from 12/25/2017. Metastatic osseous disease is in the differential. Bone scan may be of value. Electronically authenticated by: FRANCK GARBER Date: 2022-06-24 22:07 Normal [facility] CARDIAC LUDMILA ADMITon 023 CK [Catalytic activity/Vol] 111 U/L Normal 26-192 [facility] Comment on above: Performed By: #### C CHRISTOS, CMP #### [facility] [address] [address] [address] Michael Murillo CK.MB [Mass/Vol] 0.90 ng/mL Normal <=3.60 [facility] Comment on above: Performed By: #### C CHRISTOS, CMP #### [facility] [address] [place] [address] Dr. Michael Murillo HSTROP 6.6 pg/mL Normal 4.0-51.3 [facility] Comment on above: Result Comment: CUT- OFF POINTS HAVE BEEN ESTABLISHED BASED ON THE FOURTH UNIVERSAL DEFINITIONS OF MYOCARDIAL INFARCTION. THE UPPER REFERENCE LIMIT (URL) OF TROPONIN, DEFINED THE 99TH PERCENTILE OF cTnI DISTRIBUTION IN A REFERENCE POPULATION, HAS BEEN CONFIRMED THE DECISION THRESHOLD FOR [place] DIAGNOSIS. Performed By: #### C CHRISTOS, CMP #### [facility] [address] [place] [address] Dr. Michael Murillo KEARA 42 ng/mL Normal 9-82 [facility] Comment on above: Performed By: #### C CRHISTOS, CMP #### [facility] [address] [place] [address] Dr. Michael Murillo CBC AUTO DIFFon 06-24-2022 BASO # 0.0 103/ul Normal 0.0-0.1 [facility] Comment on above: Performed By: #### C BC #### [facility] [address] [place] [address] Dr. Michael Murillo Basophils/100 WBC (Bld) 0.5 % Normal 0.2-2.0 [facility] Comment on above: Performed By: #### C BC #### [facility] [address] [place] [address] Dr. Michael Murillo EO # 0.2 103/ul Normal 0.0-0.7 [facility] Comment on above: Performed By: #### C BC #### [facility] [address] [place] [address] Dr. Michael Murillo Eosinophils/100 WBC (Bld) 2.0 % Normal 0.9-7.0 [facility] Comment on above: Performed By: #### C BC #### [facility] [address] [place] [address] Dr. Michael Murillo Erythrocyte distribution width (RBC) [Ratio] 11.9 % Normal 11.0-15.0 [facility] Comment on above: Performed By: #### C BC #### [facility] [address] [place] [address] Dr. Michael Murillo Hematocrit (Bld) [Volume fraction] 40.8 % Normal 36.0-48.0 [facility] Comment on above: Performed By: #### C BC #### [facility] [address] [place] [address] Dr. Michael Murillo Hemoglobin (Bld) [Mass/Vol] 13.7 g/dL Normal 12.0-16.0 [facility] Comment on above: Performed By: #### C BC #### [facility] [address] [place] [address] Dr. Michael Murillo IG # 0.02 10e3/ul Normal 0.00-0.03 [facility] Comment on above: Performed By: #### C BC #### [facility] [address] [place] [address] Dr. Michael Murillo IG % 0.2 % Normal 0.0-0.5 [facility] Comment on above: Performed By: #### C BC #### [facility] [address] [place] [address] Dr. Michael Murillo LYMPH # 2.0 103/ul Normal 1.2-3.8 [facility] Comment on above: Performed By: #### C BC #### [facility] [address] [place] [address] Dr. Michael Murillo Lymphocytes/100 WBC (Bld) 24.3 % Normal 20.5-60.0 [facility] Comment on above: Performed By: #### C BC #### [facility] [address] [place] [address] Dr. Michael Murillo MANUAL DIFF REQ NO Normal [facility] Comment on above: Performed By: #### C BC #### [facility] [address] [place] [address] Dr. Michael Murillo MCH (RBC) [Entitic mass] 30.2 pg Normal 26.7-34.0 [facility] Comment on above: Performed By: #### C BC #### [facility] [address] [place] [address] Dr. Michael Murillo MCHC (RBC) [Mass/Vol] 33.6 g/dL Normal 29.9-35.2 [facility] Comment on above: Performed By: #### C BC #### [facility] [address] [place] [address] Dr. Michael Murillo MCV (RBC) [Entitic vol] 89.9 fL Normal 81.0-99.0 [facility] Comment on above: Performed By: #### C BC #### [facility] [address] [place] [address] Dr. Michael Murillo MONO # 1.0 103/ul Critically high 0.3-0.8 [facility] Comment on above: Performed By: #### C BC #### [facility] [address] [place] [address] Dr. Michael Murillo Monocytes/100 WBC (Bld) 11.9 % Normal 1.7-12.0 [facility] Comment on above: Performed By: #### C BC #### [facility] [address] [place] [address] Dr. Michael Murillo NEUT # 5.1 103/ul Normal 1.4-6.5 [facility] Comment on above: Performed By: #### C BC #### [facility] [address] [place] [address] Dr. Michael Murillo Neutrophils/100 WBC (Bld) 61.1 % Normal 43.0-75.0 [facility] Comment on above: Performed By: #### C BC #### [facility] [address] [place] [address] Dr. Michael Murillo Platelet mean volume (Bld) [Entitic vol] 9.8 fL Normal 9.5-13.5 [facility] Comment on above: Performed By: #### C BC #### [facility] [address] [place] [address] Dr. Michael Murillo PLT 250 103/ul Normal 150-450 [facility] Comment on above: Performed By: #### C BC #### [facility] [address] [place] [address] Dr. Michael Murillo RBC 4.54 106/ul Normal 4.20-5.40 [facility] Comment on above: Performed By: #### C BC #### [facility] [address] [place] [address] Dr. Michael Murillo WBC 8.4 103/ul Normal 4.0-11.0 [facility] Comment on above: Performed By: #### C BC #### [facility] [address] [place] [address] Dr. Michael Murillo ER URINE PROFILEon 3 Bilirubin Ql (U) Negative Normal NEGATIVE [facility] Comment on above: Performed By: #### C ALCULI #### [facility] [address] [place] [address] Dr. Michael Murilol Clarity (U) CLEAR Normal CLEAR [facility] Comment on above: Performed By: #### C ALCULI #### [facility] [address] [place] [address] Dr. Michael Murillo Color (U) YELLOW Normal YELLOW [facility] Comment on above: Performed By: #### C ALCULI #### [facility] [address] [place] [address] Dr. Michael Murillo ERUAHD A micrscopic examination will be performed if indicated. Normal [facility] Comment on above: Performed By: #### C ALCULI #### [facility] [address] [place] [address] Dr. Michael Murillo Glucose Ql (U) Negative Normal NEGATIVE [facility] Comment on above: Performed By: #### C ALCULI #### [facility] [address] [place] [address] Dr. Michael Murillo Hemoglobin Ql (U) LARGE Abnormal NEGATIVE [facility] Comment on above: Performed By: #### C ALCULI #### [facility] [address] [place] [address] Dr. Michael Murillo Ketones Ql (U) Negative Normal NEGATIVE [facility] Comment on above: Performed By: #### C ALCULI #### [facility] [address] [place] [address] Dr. Michael Murillo LEUKOCYTES Negative Normal NEGATIVE [facility] Comment on above: Performed By: #### C ALCULI #### [facility] [address] [place] [address] Dr. Michael Murillo Nitrite Ql (U) Negative Normal NEGATIVE [facility] Comment on above: Performed By: #### C ALCULI #### [facility] [address] [place] [address] Dr. Michael Murillo pH (U) 8.0 [pH] Normal 5-9 [facility] Comment on above: Performed By: #### C ALCULI #### [facility] [address] [place] [address] Dr. Michael Murillo Protein (U) [Mass/Vol] 100 mg/dL Abnormal NEGAT ALETHA/ TRACE [facility] Comment on above: Performed By: #### C ALCULI #### [facility] [address] [place] [address] Dr. Michael Murillo SPEC GRAVITY 1.015 Normal 1.005-<=1.025 [facility] Comment on above: Performed By: #### C ALCULI #### [facility] [address] [place] [address] Dr. Michael Murillo UR MICRO IND INDICATED Normal [facility] Comment on above: Performed By: #### C ALCULI #### [facility] [address] [place] [address] Dr. Michael Murillo Urobilinogen Qn (U) 0.2 {Kunal'U}/dL Normal 0.2 - 1. 0 [facility] Comment on above: Performed By: #### C ALCULI #### [facility] [address] [address] [address] Michael Murillo PROF 14(COMP METB)on 023 Albumin [Mass/Vol] 4.0 g/dL Normal 3.4-5.[address] [facility] Comment on above: Performed By: #### C PAWELM, CMP #### [facility] [address] [address] [address] Michael Murillo Albumin/Globulin [Mass ratio] 1.1 {ratio} Normal [facility] Comment on above: Performed By: #### C PAWELM, CMP #### [facility] [address] [address] [address] Michael Murillo ALP [Catalytic activity/Vol] 104 U/L Normal 46-116 [facility] Comment on above: Performed By: #### C CHRISTOS, CMP #### [facility] [address] [place] [address] Dr. Michael Murillo ALT [Catalytic activity/Vol] 30 U/L Normal 14-59 [facility] Comment on above: Performed By: #### C PAWELM, CMP #### [facility] [address] [address] [address] Michael Murillo Anion gap [Moles/Vol] 13.0 mmol/L Normal [facility] Comment on above: Performed By: #### C PAWELM, CMP #### [facility] [address] [address] [address] Michael Murillo AST [Catalytic activity/Vol] 23 U/L Normal 15-37 [facility] Comment on above: Performed By: #### C PAWELM, CMP #### [facility] [address] [address] [address] Michael Murillo Bilirubin [Mass/Vol] 0.3 mg/dL Normal 0.2-1.0 [facility] Comment on above: Performed By: #### C PAWELM, CMP #### [facility] [address] [address] [address] Michael Murillo Calcium [Mass/Vol] 9.0 mg/dL Normal 8.5-10.[address] [facility] Comment on above: Performed By: #### C MADM, CMP #### [facility] [address] [address] [address] Michael Murillo Chloride [Moles/Vol] 101 mmol/L Normal 98-107 [facility] Comment on above: Performed By: #### C MADM, CMP #### [facility] [address] [address] [address] Michael Murillo CO2 [Moles/Vol] 29.2 mmol/L Normal 21.0-32.0 [facility] Comment on above: Performed By: #### C MADM, CMP #### [facility] [address] [address] [address] Michael Murillo Creatinine [Mass/Vol] 0.97 mg/dL Normal 0.55-1.02 [facility] Comment on above: Performed By: #### C MADM, CMP #### [facility] [address] [address] [address] Michael Murillo EGFR-AF MACANESE >60 Normal >=60 [facility] Comment on above: Performed By: #### C MADM, CMP #### [facility] [address] [address] [address] Michael Murillo EGFR-NON AF MACANESE 59 mL/min/1.73m2 Critically low >=60 [facility] Comment on above: Performed By: #### C MADM, CMP #### [facility] [address] [address] [address] Michael Murillo Globulin (S) [Mass/Vol] 3.5 g/dL Normal [facility] Comment on above: Performed By: #### C MADM, CMP #### [facility] [address] [address] [address] Michael Murillo Glucose [Mass/Vol] 106 mg/dL Normal 74-[address] [facility] Comment on above: Performed By: #### C MADM, CMP #### [facility] [address] [address] [address] Michael Murillo Potassium [Moles/Vol] 4.2 mmol/L Normal 3.5-5.1 [facility] Comment on above: Performed By: #### C MADM, CMP #### [facility] [address] [address] [address] Michael Murillo Protein [Mass/Vol] 7.5 g/dL Normal 6.4-8.2 The [facility] Comment on above: Performed By: #### C MADM, CMP #### [facility] [address] [place] [address] Dr. Michael Murillo Sodium [Moles/Vol] 139 mmol/L Normal 136-145 The [facility] Comment on above: Performed By: #### C MADM, CMP #### [facility] [address] [place] [address] Dr. Michael Murillo Urea nitrogen [Mass/Vol] 19.0 mg/dL Critically high 7.0-18.0 [facility] Comment on above: Performed By: #### C MADM, CMP #### [facility] [address] [place] [address] Dr. Michael Murillo Urea nitrogen/Creatinine [Mass ratio] 19.6 mg/mg Normal [facility] Comment on above: Performed By: #### C MADM, CMP #### [facility] [address] [place] [address] Dr. Michael Murillo URINE MICROSCOPIC ONLYon BACTERIA NONE SEEN Normal NONE SEEN [facility] Comment on above: Performed By: #### C ALCULI #### [facility] [address] [place] [address] Dr. Michael Murillo Bacteria identified Cx Nom (U) NOT INDICATED Normal [facility] Comment on above: Performed By: #### C ALCULI #### [facility] [address] [place] [address] Dr. Michael Murillo CAST NONE SEEN Normal NONE SEEN [facility] Comment on above: Performed By: #### C ALCULI #### [facility] [address] [place] [address] Dr. Michael Murillo Crystals LM Nom (Urine sed) NONE SEEN Normal NONE SEEN [facility] Comment on above: Performed By: #### C ALCULI #### [facility] [address] [place] [address] Dr. Michael Murillo Epithelial cells LM Ql (Urine sed) RARE Normal NONE SEEN /RARE [facility] Comment on above: Performed By: #### C ALCULI #### [facility] [address] [place] [address] Dr. Michael Murillo MUCOUS NONE SEEN Normal NONE SEEN [facility] Comment on above: Performed By: #### C ALCULI #### [facility] [address] [place] [address] Dr. Michael Murillo RBC (U) [#/Vol] /uL Abnormal 0-2 [facility] Comment on above: Performed By: #### C ALCULI #### [facility] [address] [place] [address] Dr. Michael Murillo WBC 0-2 Abnormal NONE SEEN [facility] Comment on above: Performed By: #### C ALCULI #### [facility] [address] [place] [address] Dr. Michael Murillo CBC AUTO DIFFon 06-19-2022 BASO # 0.1 103/ul Normal 0.0-0.1 [facility] Comment on above: Performed By: #### C ALCULI #### [facility] [address] [place] [address] Dr. Michael Murillo Basophils/100 WBC (Bld) 0.8 % Normal 0.2-2.0 [facility] Comment on above: Performed By: #### C ALCULI #### [facility] [address] [place] [address] Dr. Michael Murillo EO # 0.1 103/ul Normal 0.0-0.7 [facility] Comment on above: Performed By: #### C ALCULI #### [facility] [address] [place] [address] Dr. Michael Murillo Eosinophils/100 WBC (Bld) 1.4 % Normal 0.9-7.0 [facility] Comment on above: Performed By: #### C ALCULI #### [facility] [address] [place] [address] Dr. Michael Murillo Erythrocyte distribution width (RBC) [Ratio] 12.1 % Normal 11.0-15.0 [facility] Comment on above: Performed By: #### C ALCULI #### [facility] [address] [place] [address] Dr. Michael Murillo Hematocrit (Bld) [Volume fraction] 40.5 % Normal 36.0-48.0 [facility] Comment on above: Performed By: #### C ALCULI #### [facility] [address] [place] [address] Dr. Michael Murillo Hemoglobin (Bld) [Mass/Vol] 13.3 g/dL Normal 12.0-16.0 [facility] Comment on above: Performed By: #### C ALCULI #### [facility] [address] [place] [address] Dr. Michael Murillo IG # 0.02 10e3/ul Normal 0.00-0.03 [facility] Comment on above: Performed By: #### C ALCULI #### [facility] [address] [place] [address] Dr. Michael Murillo IG % 0.3 % Normal 0.0-0.5 [facility] Comment on above: Performed By: #### C ALCULI #### [facility] [address] [place] [address] Dr. Michael Murillo LYMPH # 1.7 103/ul Normal 1.2-3.8 [facility] Comment on above: Performed By: #### C ALCULI #### [facility] [address] [place] [address] Dr. Michael Murillo Lymphocytes/100 WBC (Bld) 25.4 % Normal 20.5-60.0 [facility] Comment on above: Performed By: #### C ALCULI #### [facility] [address] [place] [address] Dr. Michael Murillo MANUAL DIFF REQ NO Normal [facility] Comment on above: Performed By: #### C ALCULI #### [facility] [address] [place] [address] Dr. Michael Murillo MCH (RBC) [Entitic mass] 30.8 pg Normal 26.7-34.0 [facility] Comment on above: Performed By: #### C ALCULI #### [facility] [address] [place] [address] Dr. Michael Murillo MCHC (RBC) [Mass/Vol] 32.8 g/dL Normal 29.9-35.2 [facility] Comment on above: Performed By: #### C ALCULI #### [facility] [address] [place] [address] Dr. Michael Murillo MCV (RBC) [Entitic vol] 93.8 fL Normal 81.0-99.0 [facility] Comment on above: Performed By: #### C ALCULI #### [facility] [address] [place] [address] Dr. Michael Murillo MONO # 0.7 103/ul Normal 0.3-0.8 [facility] Comment on above: Performed By: #### C ALCULI #### [facility] [address] [place] [address] Dr. Michael Murillo Monocytes/100 WBC (Bld) 10.4 % Normal 1.7-12.0 [facility] Comment on above: Performed By: #### C ALCULI #### [facility] [address] [place] [address] Dr. Michael Murillo NEUT # 4.1 103/ul Normal 1.4-6.5 [facility] Comment on above: Performed By: #### C ALCULI #### [facility] [address] [place] [address] Dr. Michael Murillo Neutrophils/100 WBC (Bld) 61.7 % Normal 43.0-75.0 [facility] Comment on above: Performed By: #### C ALCULI #### [facility] [address] [place] [address] Dr. Michael Murillo Platelet mean volume (Bld) [Entitic vol] 10.0 fL Normal 9.5-13.5 [facility] Comment on above: Performed By: #### C ALCULI #### [facility] [address] [place] [address] Dr. Michael Murillo PLT 245 103/ul Normal 150-450 [facility] Comment on above: Performed By: #### C ALCULI #### [facility] [address] [place] [address] Dr. Michael Murillo RBC 4.32 106/ul Normal 4.20-5.40 [facility] Comment on above: Performed By: #### C ALCULI #### [facility] [address] [place] [address] Dr. Michael Murillo WBC 6.7 103/ul Normal 4.0-11.0 [facility] Comment on above: Performed By: #### C ALCULI #### [facility] [address] [place] [address] Dr. Michael Murillo Formson 06-19-2022 Forms [id number] #1.00CD:127 Normal [facility] PROF CHEM 8 (BAS METB)on Anion gap [Moles/Vol] 11.9 mmol/L Normal [facility] Comment on above: Performed By: #### C ALCULI #### [facility] [address] [place] [address] Dr. Michael uMrillo Calcium [Mass/Vol] 9.1 mg/dL Normal 8.5-10.[address] [facility] Comment on above: Performed By: #### C ALCULI #### [facility] [address] [place] [address] Dr. Michael Murillo Chloride [Moles/Vol] 100 mmol/L Normal 98-107 [facility] Comment on above: Performed By: #### C ALCULI #### [facility] [address] [place] [address] Dr. Michael Murillo CO2 [Moles/Vol] 28.3 mmol/L Normal 21.0-32.0 [facility] Comment on above: Performed By: #### C ALCULI #### [facility] [address] [place] [address] Dr. Michael Murillo Creatinine [Mass/Vol] 0.83 mg/dL Normal 0.55-1.02 [facility] Comment on above: Performed By: #### C ALCULI #### [facility] [address] [address] [address] Michael Murillo EGFR-AF MACANESE >60 Normal >=60 [facility] Comment on above: Performed By: #### C ALCULI #### [facility] [address] [address] [address] Michael Murillo EGFR-NON AF MACANESE >60 Normal >=60 [facility] Comment on above: Performed By: #### C ALCULI #### [facility] [address] [address] [address] Michael Murillo Glucose [Mass/Vol] 97 mg/dL Normal 74-[address] [facility] Comment on above: Performed By: #### C ALCULI #### [facility] [address] [place] [address] Dr. Michael Murillo Potassium [Moles/Vol] 4.2 mmol/L Normal 3.5-5.1 [facility] Comment on above: Performed By: #### C ALCULI #### [facility] [address] [address] [address] Michael Murillo Sodium [Moles/Vol] 136 mmol/L Normal 136-[address] [facility] Comment on above: Performed By: #### C ALCULI #### [facility] [address] [place] [address] Dr. Michael Murillo Urea nitrogen [Mass/Vol] 18.0 mg/dL Normal 7.0-18.0 [facility] Comment on above: Performed By: #### C ALCULI #### [facility] [address] [address] [address] Michael Murillo Urea nitrogen/Creatinine [Mass ratio] 21.7 mg/mg Normal [facility] Comment on above: Performed By: #### C ALCULI #### [facility] [address] [place] [address] Dr. Michael Murillo PROTIMEon 06-19-2022 INR Coag (PPP) [Relative time] {INR} Normal [facility] Comment on above: Performed By: #### C ALCULI #### [facility] [address] [place] [address] Dr. Michael Murillo INR GUIDELINES SEE BELOW Normal [facility] Comment on above: Result Comment: JORGE RED INR: 2.0 - 3.0 CONDITIONS NOT LISTED BELOW 2.5 - 3.5 FOR PROSTHETIC HEART VALVE REPLACEMENT 2.5 - 3.5 RECURRENT THROMBOSIS Performed By: #### C ALCULI #### [facility] [address] [place] [address] Dr. Michael Murillo PT Coag (PPP) [Time] 9.8 s Normal 9.0-11.6 [facility] Comment on above: Performed By: #### C ALCULI #### [facility] [address] [place] [address] Dr. Michael Murillo PTTon 06-19-2022 aPTT Coag (Bld) [Time] 28.9 s Normal 22.3-36.2 [facility] Comment on above: Performed By: #### C ALCULI #### [facility] [address] [place] [address] Dr. Michael Murillo Screenson 06-19-2022 Screens [id number] #1.00CD:127 Normal [facility] Patient Educationon 06-16-19 23 Patient Education Urology Dietary Guidelines to Help Prevent Kidney Stones Kidney stones are deposits of minerals and salts that form inside your kidneys. Your risk of developing kidney stones may be greater depending on your diet, your lifestyle, the medicines you take, and whether you have certain medical conditions. Most people can reduce their chances of developing kidney stones by following the instructions below. Depending on your overall health and the type of kidney stones you tend to develop, your dietitian may give you more specific instructions. What are tips for following this plan? Reading food labels ? Choose foods with no salt added or low-salt labels. Limit your sodium intake to less than 1500 mg per day. ? Choose foods with calcium for each meal and snack. Try to eat about 300 mg of calcium at each meal. Foods that contain 200?500 mg of calcium per serving include: ? 8 oz (237 ml) of milk, fortified nondairy milk, and fortified fruit juice. ? 8 oz (237 ml) of kefir, yogurt, and soy yogurt. ? 4 oz (118 ml) of tofu. ? 1 oz of cheese. ? 1 cup (300 g) of dried figs. ? 1 cup (91 g) of cooked broccoli. ? 1?3 oz can of sardines or mackerel. ? Most people need 1000 to 1500 mg of calcium each day. Talk to your dietitian about how much calcium is recommended for you. Shopping ? Buy plenty of fresh fruits and vegetables. Most people do not need to avoid fruits and vegetables, even if they contain nutrients that may contribute to kidney stones. ? When shopping for convenience foods, choose: ? Whole pieces of fruit. ? Premade salads with dressing on the side. ? Low-fat fruit and yogurt smoothies. ? Avoid buying frozen meals or prepared deli foods. ? Look for foods with live cultures, such as yogurt and kefir. Cooking ? Do not add salt to food when cooking. Place a salt shaker on the table and allow each person to add his or her own salt to taste. ? Use vegetable protein, such as beans, textured vegetable protein (TVP), or tofu instead of meat in pasta, casseroles, and soups. Meal planning ? Eat less salt, if told by your dietitian. To do this: ? Avoid eating processed or premade food. ? Avoid eating fast food. ? Eat less animal protein, including cheese, meat, poultry, or fish, if told by your dietitian. To do this: ? Limit the number of times you have meat, poultry, fish, or cheese each week. Eat a diet free of meat at least 2 days a week. ? Eat only one serving each day of meat, poultry, fish, or seafood. ? When you prepare animal protein, cut pieces into small portion sizes. For most meat and fish, one serving is about the size of one deck of cards. ? Eat at least 5 servings of fresh fruits and vegetables each day. To do this: ? Keep fruits and vegetables on hand for snacks. ? Eat 1 piece of fruit or a handful of berries with breakfast. ? Have a salad and fruit at lunch. ? Have two kinds of vegetables at dinner. ? Limit foods that are high in a substance called oxalate. These include: ? Spinach. ? Rhubarb. ? Beets. ? Potato chips and samoan fries. ? Nuts. ? If you regularly take a diuretic medicine, make sure to eat at least 1?2 fruits or vegetables high in potassium each day. These include: ? Avocado. ? Banana. ? Calhoun, prune, carrot, or tomato juice. ? Baked potato. ? Cabbage. ? Beans and split peas. General instructions ? Drink enough fluid to keep your urine clear or pale yellow. This is the most important thing you can do. ? Talk to your health care provider and dietitian about taking daily supplements. Depending on your health and the cause of your kidney stones, you may be advised: ? Not to take supplements with vitamin C. ? To take a calcium supplement. ? To take a daily probiotic supplement. ? To take other supplements such as magnesium, fish oil, or vitamin B6. ? Take all medicines and supplements as told by your health care provider. ? Limit alcohol intake to no more than 1 drink a day for non women and 2 drinks a day for men. One drink equals 12 oz of beer, 5 oz of wine, or 1? oz of hard liquor. ? Lose weight if told by your health care provider. Work with your dietitian to find strategies and an eating plan that works best for you. What foods are not recommended? Limit your intake of the following foods, or as told by your dietitian. Talk to your dietitian about specific foods you should avoid based on the type of kidney stones and your overall health. Grains Breads. Bagels. Rolls. Baked goods. Salted crackers. Cereal. Pasta. Vegetables Spinach. Rhubarb. Beets. Canned vegetables. Pickles. Olives. Meats and other protein foods Nuts. Nut butters. Large portions of meat, poultry, or fish. Salted or cured meats. Deli meats. Hot dogs. Sausages. Dairy Cheese. Beverages Regular soft drinks. Regular vegetable juice. Seasonings and other foods Seasoning blends with salt. Kenzie roman (more content not included)... Normal [facility] Pre-Certification Formon Pre-Certification Form [id number] #1.00CD:127 Normal [facility] RAD - CT Reporton 06-16-2022 RAD - CT Report [id number] #1.00CD:127 Normal [facility] Urology Office/Clinic Noteon 06-16-2022 Urology Office/Clinic Note Chief Complaint pt here for review of CT scan HPI Staff Pt is a 57yr old female here for a review of her CT scan done 05/12/22. CT scan of abd/p w/o con shows bilateral nonobstructing nephrolithiasis. Pt had cysto UD done 04/12/22 showed Proximal urethra/badder neck tightness, release at 26fr and 30fr. Pt previous DX: dysuria, incomplete bladder emptying, kidney stone, microscopic hematuria, mixed incontinence, nocturia, OAB, other urethral stricture , female, personal history of kidney stones, proteinuria, urethra cancer, urinary incontinence. S/P ESWL of kidney 06/23/20. Pt states DLS previously had her on hydrochlorothiazide. Pt was wondering if she can be placed back on it. Dysuria: yes, some burning Incomplete bladder emptying: yes Hematuria: denies but UA shows small amounts Frequency: denies Urgency: denies Nocturia: 1 time per night Stream: strong stream, some start stop, no hesitation Leaking: some leaking Post void dripping: some Wearing pads/ Depends: yes pads, changes pads a couple times per day Urge incontinence: yes Stress incontinence: denies Incontinence without Sensory Awareness: denies Abdominal pain: denies Flank pain: pt states she hasn't had any pain in the last week Sexual complaints: denies History of Present Illness Tests reviewed: reviewed UA, CT scan I have reviewed the previous health record information and history for this patient from Dr. Nolasco. I have reviewed and verified the staff HPI to be accurate for this encounter. There have been no associated fever, chills, or blood in the urine. Denies any urinary infections since last encounter. Review of Systems PHQ Score Initial Depression Screen Score: 0 ROS - Provider Constitutional: denies weight loss, denies hot flashes. Eyes: denies eye problems. Gastrointestinal: denies nausea, denies vomiting. Cardiovascular: denies chest pain or angina. Integumentary: no dryness Musculoskeletal: denies musculoskeletal symptoms. ENMT: denies otolaryngeal symptoms. Respiratory: no shortness of breath. Heme/Lymph: denies easy bleeding tendency, denies easy bruising tendency. Psychiatric: no confusion, no anxiety. Genitourinary: See HPI. Intermittent L flank pain Physical Exam Vitals & Measurements HR: 64(Peripheral) BP: 172/93 HT: 63 in HT: 161 cm WT: 70.1 kg WT: 154.22 lb BMI: 27.04 General Appearance: alert , no acute distress, well nourished, well developed female. Genitourinary: bladder nonpalpable, no flank pain. Assessment/Plan Prior DLS pt 1. Kidney stone (N20.0: Calculus of kidney) S/p ESWL done 06/23/20 DLS - CaPhos 60%, CaOx 40%, low volume. Was told she had medullary sponge kidney. Previously on HCTZ KUB 04/2021 shows Lateral renal calculi. KUB at [facility] on 08/22/2021 showed bilateral stones measuring up to 5mm on both sides. FERNY done 08/22/21 shows both on left and right multiple echogenic foci measuring up to 5mm, nonobstructing nephrolithiasis. No solid cortical mass or hydronephrosis. KUB done 03/23/22 shows right small calcification projecting over superior pole of right kidney. No visible renal or ureteral calcifications of left kidney. No appreciable ureteral or bladder stones. CT AP wo con 05/12/22 shows bilateral non obstructing renal stones. No hydro. Personal review: Left kidney: 4.5 mm stones x 2, 3.6 mm and 2.5 mm stones. Right: 5.5 mm, 1-3 mm stones x 3. Discussed findings from CT, bilat stones. Has had surgical intervention several times in the past including PCNL and ESWL/stents (required post ESWL due to pain/steinstrasse). Stones may be passable due to size. Has taken HCTZ in the past. Discussed risks and benefits of surgical intervention options. Pt prefers to treat left side first since she has been having pain on left via URS with laser litho given her hx of needing stent post ESWL Will schedule cystoscopy, left RPG, left ureteroscopy with laser lithotripsy/stone extraction, stent placement. The procedural risks, benefits, details, and treatment alternatives have been discussed with the patient. These include bleeding, infection, inability to break or retrieve all of the stone, injury to the ureter (the tube which connects the kidney to the bladder), injury to the kidney scarring of the ureter, and need for repeat procedures, among others. Full informed consent has been obtained. Will order General anesthesia. -Complete metabolic workup prior to restarting HCTZ to ensure on appropriate tx 2. OAB (overactive bladder) (N32.81: Overactive bladder) ICIQ-SF 12. Stopped Vesicare. Did not do well with side effect of constipation, which she has at baseline. On Levsin with minimal improvement. Recommend Myrbetriq as is has less SEs. Interactions and SEs discussed. Rx sent to [facility]. Consider Botox and additional therapies in the future. -start Myrbetriq 50 mg QD. Pt to call with any medication difficulties -cont timed voids q2hrs -Behavioral modifications 3. Other urethral stricture, female (N35.82 (more content not included)... Normal [facility] Comment on above: Result Comment: Elec tronically Signed By: Aubrie Nolasco MD\.br\Date and Time Signed: 06/16/22 14:16 EST\.br\Electronically Co-Signed By: Lucía Wong\.br\Date and Time Co-Signed: 06/16/22 12:42 EST\.br\Electronically Co-Signed By: Lucía Wong\.br\Date and Time Co-Signed: 06/16/22 12:44 EST Patient Letter FTon 2022 Patient Letter [facility] June 07, 2022 ELI CHUNG [address] [id number] ELI CHUNG 1965 Dear Eli, According to our records I ordered a CT scan of the abdomen/pelvis without contrast to be done at [facility]. My office tried reaching out to you via telephone and mail to get this testing schedule but we have no received a response. It is important you have this testing done so you care can be continued. Please contact my office at your earliest convenience and we will gladly get your testing scheduled for you. I cannot be responsible for your urologic care if you do not complete testing as recommended. If you wish to not have the testing done please contact my office and let us know. Thank you for your prompt attention to this matter. Sincerely, Dr. Aubrie Nolasco MD [facility] [address] [place] [id number] [facility] CT ABD/PELVIS WO CONon 05-15 CT ABD/PELVIS WO CON EXAMINATION: CT ABD/PELVIS WO CON, 05/12/2022 3:07 PM EST HISTORY: Kidney stone COMPARISON: CT lumbar spine 12/24/2017. TECHNIQUE: CT scan of the abdomen and pelvis was performed without IV contrast. CT dose reduction technique was used, including Automated Exposure Control. FINDINGS: LUNG BASES: No visible pulmonary or pleural disease. Pericardial fluid measuring up to 1.3 cm thick LIVER: No enlargement, atrophy, abnormal density, or significant focal lesion. BILIARY: Surgical clips from cholecystectomy PANCREAS: No lesion, fluid collection, ductal dilatation, or atrophy. SPLEEN: No enlargement or focal lesion. ADRENALS: No mass or enlargement. KIDNEYS: Bilateral nonobstructing nephrolithiasis. No hydronephrosis or obstructing nephrolithiasis BOWEL/MESENTERY: Nonobstructive bowel gas pattern. Normal appendix. AORTA/VASCULAR: No aortic aneurysm. Atherosclerosis. RETROPERITONEUM: No mass or adenopathy. LYMPH NODES: No adenopathy. URINARY BLADDER: No visible focal wall thickening, lesion, or calculus. PELVIC ORGANS: Hysterectomy. ABDOMINAL WALL: 2 cm umbilical hernia containing fat without strangulation BONES: Focal sclerosis of the right iliac wing stable from 2018 CT OTHER: Negative. IMPRESSION: Bilateral nonobstructing nephrolithiasis Electronically authenticated by: BENI ORTIZ Date: 2022-05-15 13:08 Normal [facility] Provider Letteron 05-09-2022 Provider Letter May 09, 2022 ELI CHUNG [address] [id number] ELI CHUNG 1965 Dear Eli, We have been trying to reach you with no success. It is important that you return our call regarding scheduling your CT Urogram upon receiving this letter. Also, at the time of your call, please provide us with your current information. Thank you for your prompt attention to this matter. Sincerely, [facility] [address] [place] [address] Normal [facility] Pre-Certification Formon Pre-Certification Form [id number] #1.00CD:127 Normal [facility] Operative Reporton Operative Report [id number] #1.00CD:127 Normal [facility] XR KUB 1 VIEWon 03-24-2022 XR KUB 1 VIEW EXAMINATION: XR KUB 1 VIEW HISTORY: Kidney stone ; bladder pain, feels like prior stone COMPARISON: XR KUB 05/03/2021 FINDINGS: KIDNEY/URETER - RIGHT: Small calcification projecting over superior pole of right kidney. KIDNEY/URETER - LEFT: No visible renal or ureteral calcifications. PELVIS: No visible ureteral stones. Stable left pelvic calcifications favor phleboliths. BOWEL: No abnormal dilation or deviation. BONES: No acute abnormality. OTHER: Negative. No abnormal gaseous collections. IMPRESSION: 1. Right nephrolithiasis. 2. No appreciable ureteral or bladder stones. Electronically authenticated by: JUDSON ENGLISH Date: 2022-03-24 06:57 Normal [facility] Vital Signs Date Time Vital Sign Value Performing Clinician Mily damon 06-05-2023 08:55-0500 Blood Pressure Location KAILASH TOLEDO [facility] 06-05-2023 08:55-0500 Diastolic blood pressure 89 mm[Hg] KAILASH TOLEDO [facility] 06-05-2023 08:55-0500 Heart rate 82 /min KAILASH TOLEDO [facility] 06-05-2023 08:55-0500 Respiratory rate 16 /min KAILASH FINLEYRY [facility] 06-05-2023 08:55-0500 Systolic blood pressure 144 mm[Hg] KAILASH TRE [facility] 10-11-2022 09:53-0400 Blood Pressure Location Aubrie Lue [facility] 10-11-2022 09:53-0400 Diastolic blood pressure 78 mm[Hg] Aubrie Lue [facility] 10-11-2022 09:53-0400 Heart rate 68 /min Aubrie Lue [facility] 10-11-2022 09:53-0400 Respiratory rate 16 /min Aubrie Lue [facility] 10-11-2022 09:53-0400 Systolic blood pressure 140 mm[Hg] Aubrie Lue [facility] 06-16-2022 11:43-0500 Diastolic blood pressure 93 mm[Hg] Aubrie Lue [facility] 06-16-2022 11:43-0500 Mean blood pressure 119 mm[Hg] Aubrie Lue [facility] 06-16-2022 11:43-0500 Systolic blood pressure 172 mm[Hg] Aubrie Lue [facility] 06-16-2022 11:13-0500 Blood Pressure Location Aubrie Lue [facility] 06-16-2022 11:13-0500 Diastolic blood pressure 99 mm[Hg] Aubrie Lue [facility] 06-16-2022 11:13-0500 Heart rate 64 /min Aubrie Lue [facility] 06-16-2022 11:13-0500 Systolic blood pressure 166 mm[Hg] Aubrie Lue [facility] 03-24-2022 13:32-0500 Blood Pressure Location Aubrie Lue [facility] 03-24-2022 13:32-0500 Diastolic blood pressure 85 mm[Hg] Aubrie Lue [facility] 03-24-2022 13:32-0500 Heart rate 72 /min Aubrie Lue [facility] 03-24-2022 13:32-0500 Systolic blood pressure 170 mm[Hg] Aubrie Lue [facility] Encounters Encounter Date Encounter Type Care Provider Facility Start: 06-05-2023 End: 06-05-2023 Lab Drop off KAILASH TOLEDO [facility] Start: 06-05-2023 End: 06-05-2023 Patient encounter procedure KAILASH TOLEDO [facility] Start: 10-30-2022 End: 10-31-2022 ambulatory Aubrie M. Lue Facility:[facility] Start: 10-30-2022 End: 10-30-2022 Patient encounter procedure Aubrie M. Lue [facility] Start: 10-25-2022 End: 10-26-2022 ambulatory Aubrie Nolasco Facility:CD:[id number] Start: 10-11-2022 End: 10-12-2022 ambulatory Aubrie Nolasco Facility:[facility] Start: 10-11-2022 End: 10-11-2022 Patient encounter procedure Aubrie Nolasco [facility] Start: 10-10-2022 End: 10-11-2022 ambulatory AUBRIE NOLASCO . Facility:[facility] Start: 09-11-[address] PHILLIP UNGER . Facili ty:[facility] Start: 08-23-[address] PHILLIP UNGER . Facili ty:[facility] Start: 08-02-2022 End: 08-03-[address] PHILLIP UNGER . Facility:[facility] Start: 07-27-2022 End: 07-28-[address] PHILLIP UNGER . Facility:[facility] Start: 07-25-2022 Encounter for genera l adult medical examination without abnormal findings DR PHILLIP UNGER . [facility] Start: 07-21-2022 End: 07-22-[address] PHILLIP UNGER . Facility:[facility] Start: 07-21-2022 End: 07-22-2022 Encounter for general adult medical examination without abnormal findings DR PHILLIP UNGER . Facility:[facility] Start: 07-20-2022 End: 07-21-[address] PHILLIP UNGER . Facility:[facility] Start: 07-13-2022 ambulatory AUBRIE NOLASCO . Facility: [facility] Start: 07-10-2022 End: 07-11-[address] PHILLIP UNGER . Facility:[facility] Start: 06-24-2022 End: 06-25-2022 ambulatory CHANEL JEONG . Facility:[facility] Start: 06-21-2022 Encounter for preprocedural cardiovascular examination AUBRIE NOLASCO . [facility] Start: 06-21-2022 Encounter for preprocedural laboratory examination AUBRIE NOLASCO . [facility] Start: 06-21-2022 End: 06-21-2022 ambulatory AUBRIE M LUE . Facility: Start: 06-19-2022 End: 06-20-2022 ambulatory AUBRIE M LUE . Facility:[facility] Start: 06-19-2022 End: 06-20-2022 Encounter for preprocedural laboratory examination AUBRIE DIAZE . Facility: Start: 06-16-2022 End: 06-17-2022 ambulatory Aubrie M. Lue Facility:[facility] Start: 06-16-2022 End: 06-16-2022 Patient encounter procedure Aubrie M. Lue [facility] Start: 06-15-2022 ambulatory Aubrie M. Lue Facility:[facility] [place] Start: 05-12-2022 End: 05-13-2022 ambulatory AUBRIE M LUE . Facility: Start: 05-03-2022 ambulatory Aubrie M. Lue Facility:[facility] Start: 04-12-2022 End: 04-13-2022 ambulatory AUBRIE M LUE . Facility: Start: 03-24-2022 End: 03-24-2022 Patient encounter procedure Aubrie Fernandez. Lue [facility] Start: 03-23-2022 End: 03-24-2022 ambulatory KAILASH TOLEDO Facility:[facility] Start: 01-17-[address] PHILLIP UNGER . Facili ty:[facility]1 Start: 08-09-2021 End: 08-09-2021 Patient encounter procedure Tracy Christian Jr. [facility] Procedures Date Procedure Procedure Detail Performing Clinician Start: 10-25-2022 Cystoscopic laser lithotripsy of ureteric calculus KAILASH TOLEDO Start: 06-21-2022 Cystoscopic insertio n of ureteric stent Aubrie Lupiero Start: 06-21-2022 Ureteroscopy Aubrie Nolasco Start: 06-23-2021 Ankle region structu re (body structure) Tracy Christian Jr. Comment on above: nerve repair Start: 06-23-2020 Extracorporeal shock wave lithotripsy of calculus of kidney Tracy Christian Jr. Appendectomy Tracy Velez Hysterectomy Tracy Velez Ligation of fallopian tube D kel Christian Jr. Tonsillectomy Tracy lerma Immunizations Immunization Date Immunization Notes Care Provider [facility] 01-12-2023 influenza virus vacc ine, unspecified formulation KAILASH TOLEDO [facility] 02-13-2022 influenza, unspecifi ed formulation Aubrie Nolasco [facility] 03-10-2021 influenza, unspecifi ed formulation Aubrie Lue [facility] 03-09-2021 SARS-CoV-2 (COVID-19 ) mRNA-1273 vaccine Aubrie Nolasco [facility] 06-11-2020 SARS-CoV-2 (COVID-19 ) Ad26 vaccine, recombinant Tracy Christian [facility] 06-09-2020 SARS-CoV-2 (COVID-19 ) mRNA-1273 vaccine Aubrie Lue [facility] 05-21-2020 SARS-CoV-2 (COVID-19 ) Ad26 vaccine, recombinant Tracy Christian [facility] 05-19-2020 SARS-CoV-2 (COVID-19 ) mRNA-1273 vaccine Aubrie Lue [facility] 05-12-2020 SARS-CoV-2 (COVID-19 ) mRNA-1273 vaccine Aubrie Lue [facility] 02-25-2020 influenza virus vacc ine, unspecified formulation Aubrie Lupiero [facility] 03-01-2016 tetanus toxoid, redu ann diphtheria toxoid, and acellular pertussis vaccine, adsorbed Aubrie Lupiero [facility] 05-14-2011 pneumococcal polysaccharide vaccine, 23 valent Aubrie Nolasco [facility] Payers Date Payer Category Payer Unknown [id number] 2019 Unknown [id number] 1965 Unknown [id number] .16.84 0.1.256730.3.579.2.593 1963 Unknown [id number] .16.84 0.1.476896.3.579.2.593 1963 Unknown [id number] .16.84 0.1.874861.3.579.2.593 1963 Unknown [id number] 2.16.84 0.1.688279.3.579.2.593 1963 Unknown [id number] .16.84 0.1.264087.3.579.2.593 1963 Unknown [id number] 2.16.84 0.1.717568.3.579.2.593 1963 Unknown [id number] 2.16.84 0.1.650138.3.579.2.593 1963 Unknown [id number] 2.16.84 0.1.145333.3.579.2.593 1963 Unknown [id number] 2.16.84 0.1.312041.3.579.2.593 1963 Unknown [id number] 2.16.84 0.1.878950.3.579.2.593 1963 Unknown [id number] 2.16.84 0.1.225761.3.579.2.593 1963 Unknown [id number] 2.16.84 0.1.685270.3.579.2.593 1963 Unknown [id number] 2.16.84 0.1.716747.3.579.2.593 1963 Unknown [id number] 2.16.84 0.1.707223.3.579.2.593 1963 Unknown [id number] 2.16.84 0.1.789010.3.579.2.593 1963 Unknown [id number] 2.16.84 0.1.230767.3.579.2.593 1963 Unknown [id number] 2.16.8 40.1.414815.3.579.2.727 1963 Unknown [id number] 2.16.8 40.1.864285.3.579.2.727 1963 Unknown [id number] 2.16.8 40.1.141288.3.579.2.727 1963 Unknown [id number] 2.16.8 40.1.919576.3.579.2.727 1963 Unknown [id number] 2.16.8 40.1.663219.3.579.2.727 1963 Unknown [id number] 2.16.8 40.1.157430.3.579.2.727 1963 Unknown [id number] 2.16.8 40.1.234411.3.579.2.727 1959 Unknown [id number] 1961 Unknown [id number] Unknown Social History Date Type Detail Facility Start: 01-28-2021 End: 10-11-2022 Tobacco smoking status Never smoked tobacco (finding) [facility] Tobacco smoking status Never [facility] Sex Assigned At Female [facility] Functional Status Date Assessment Result Facility 06-05-2023 Functional Status N/A [facility] 10-30-2022 Functional Status N/A [facility] 10-11-2022 Functional Status N/A [facility] 06-16-2022 Functional Status N/A [facility] 03-24-2022 Functional Status N/A [facility] Clinical Notes 08-09-2021 to 06-05-2023 Note Date & Type Note Facility 06-05-2023 Evaluation + Plan note Diagnostic Tests PendingUrine Culture 06/05/23 [facility] 06-05-2023 Hospital Discharg e instructions Patient Education 06/05/2023 09:29:56 Flank Pain, Adult, Ruky-qx-Ptil Flank Pain, Adult Flank pain is pain in your side. The flank is the area on your side between your upper belly (abdomen) and your spine. The pain may occur over a short time (acute), or it may be long-term or come back often (chronic). It may be mild or very bad. Pain in this area can be caused by many different things. Follow these instructions at home: Drink enough fluid to keep your pee (urine) pale yellow. Rest as told by your doctor. Take yrou-ibz-gjbpqsx and prescription medicines only as told by your doctor. Keep a journal to keep track of: ?What has caused your flank pain. ?What has made your flank pain feel better. Keep all follow-up visits. Contact a doctor if: Medicine does not help your pain. You have new symptoms. Your pain gets worse. Your symptoms last longer than 2 3 days. You have trouble peeing. You are peeing more often than normal. Get help right away if: You have trouble breathing. You are short of breath. Your belly hurts, or it is swollen or red. You feel like you may vomit (nauseous). You vomit. You feel faint, or you faint. You have blood in your pee. You have flank pain and a fever. These symptoms may be an emergency. Get help right away. Call your local emergency services (911 in the [place] Do not wait to see if the symptoms will go away. Do not drive yourself to the hospital. Summary Flank pain is pain in your side. The flank is the area of your side between your upper belly (abdomen) and your spine. Flank pain may occur over a short time (acute), or it may be long-term or come back often (chronic). It may be mild or very bad. Pain in this area can be caused by many different things. Contact your doctor if your symptoms get worse or last longer than 2 3 days. This information is not intended to replace advice given to you by your health care provider. Make sure you discuss any questions you have with your health care provider. Document Revised: 07/11/2021 Document Reviewed: 07/11/2021 [employer] Patient Education 2022 [employer]. Follow Up Care 05/30/2023 14:24:53 With:KAILASH TOLEDO PA-C, URL Address: [address] [facility] [place] [address] When: Unknown [facility] 10-30-2022 Evaluation + Plan note Extrac mike from: Title:- Clinic HOPD Note Author:Aubrie Nolasco MD Date:10/30/22 Impression and Plan Assessment and Plan: Diagnosis: Intrinsic sphincter deficiency (ISD) (GWP42-DR N36.42, Discharge, Medical), Mixed incontinence (IZV15-JM N39.46, Working, Medical), Kidney stone (XYF03-CK N20.0, Discharge, Medical). 57 year old female with history of recurrent stones s/p R URS , laser lithotripsy, stone removal, stent placement 10/25/22 and mixed incontinence now stress predominant. 1. ISD - pt complaining of leakage with bending, walking. Leakage noted on exam today, minimal urethral mobility. Discussed risks/benefits of management options including pelvic floor therapy, bulking agents, inserts and sling. After discussion of risks/benefits and failure of pelvic floor therapy at home, she elects to proceed with Bulkamid under MAC - will schedule. We discussed risks/benefits of urethral bulking agent Bulkamid, which is a non-particulate homogenous hydrogel consisting of 97.5% water and 2.5% cross- linked polyacrylamide. At 1 year, overall 77-83% success rate is reported. RCT comparing Bulkamid to tension-free vaginal tape at 1 year report 92% subjectively improved and 66% objectively dry in Bulkamid group vs 100% subjectively cured and 95% dry with TVT. 0% serious complications were reported with Bulkamid vs 9% serious complications with TVT including difficulty emptying bladder, chronic pain, tape protrusion or erosion. At 7 years, 67.1% of the Bulkamid patients reported feeling cured or improved, 11.1% reported no change, and 2.3% reported worsening of incontinence. A total of 19.5% of patients received a subsequent other incontinence procedure. Postoperative complications were transient. Prolonged bladder emptying time was reported in 15.3% of patients and urinary tract infection in 3.5%. Risks of requiring straight cath or temporary catheter were discussed. Additional anesthesia risks discussed. 2. Recurrent nephrolithiasis s/p R URS, laser lithotripsy, stone removal, stent placement 10/25/22 -Continue dietary modifications -Follow-up stone analysis results from [facility] -Patient has Litholink kit at home. She will complete metabolic stone work-up and follow-up in 6 weeks to review -Follow-up in 6 weeks with renal ultrasound to ensure no silent obstruction develops after intervention I spent 41 minutes today with the patient: reviewing tests in preparation to see and discuss them with the patient, documenting clinical information in the electronic health records, care coordination, performing a medical exam and evaluation, counseling and educating the patient, and ordering medications, tests and procedures in caring for the patient. [facility]06-19-2023 Note [id number]:[id number] 10-30-2022 NoteCystoscopy with Stent Removal ? Voiding after the procedure: there may be some pain, burning, urgency, frequency and blood tingedurine following the procedure. These symptoms usually resolve within 2-5 days. Drink the amount of fluid it takes to keep the urine pink to yellow or clear in color. Drinking enough water and fluids will help to ease any discomfort after your procedure. ? If you are having problems that seem out of the ordinary, please call. ? If unable to contact your physician and you feel it is an emergency, go to the nearest emergency room or call 911 ? Diet ? you may resume your normal diet. ? Activity ? you may resume your normal activities ? Call if you have a fever over 100 degrees. Cystoscopy ? Voiding after the procedure: there may be some pain, burning, urgency, frequency and blood tingedurine following the procedure. These symptoms usually resolve within 2-5 days. Drink the amount of fluid it takes to keep the urine pink to yellow or clear in color. Drinking enough water and fluids will help to ease any discomfort after your procedure. ? If you are having problems that seem out of the ordinary, please call. ? If unable to contact your physician and you feel it is an emergency, go to the nearest emergency room or call 911 ? Diet ? you may resume your normal diet. ? Activity ? you may resume your normal activities ? Call if you have a fever over 100 degrees.[facility] 10-30-2022 Hospital Discharge instructions Patient Education 10/30/2022 10:19:28 EU - Cystoscopy with Stent Removal Discharge Instructions (CUSTOM) Cystoscopy with Stent Removal Voiding after the procedure: there may be some pain, burning, urgency, frequency and blood tinged urine following the procedure. These symptoms usually resolve within 2-5 days. Drink the amount of fluid it takes to keep the urine pink to yellow or clear in color. Drinking enough water and fluids will help to ease any discomfort after your procedure. If you are having problems that seem out of the ordinary, please call. If unable to contact your physician and you feel it is an emergency, go to the nearest emergency room or call 911 Diet you may resume your normal diet. Activity you may resume your normal activities Call if you have a fever over 100 degrees. 10/30/2022 10:19:15 EU - Cystoscopy Discharge Instructions (CUSTOM) Cystoscopy Voiding after the procedure: there may be some pain, burning, urgency, frequency and blood tinged urine following the procedure. These symptoms usually resolve within 2-5 days. Drink the amount of fluid it takes to keep the urine pink to yellow or clear in color. Drinking enough water and fluids will help to ease any discomfort after your procedure. If you are having problems that seem out of the ordinary, please call. If unable to contact your physician and you feel it is an emergency, go to the nearest emergency room or call 911 Diet you may resume your normal diet. Activity you may resume your normal activities Call if you have a fever over 100 degrees. Follow Up Care 10/27/2022 11:14:28 With:Aubrie Nolasco Address: [address] [place] [address]- [phone] Business (1) [address], [address] [phone] [phone] [employer] (1) When: Unknown Comments:Office will schedule Bulkamid and follow up renal US in 6 wks [facility]05-31-2023 Hospital Discharge instructions Patient Education 10/11/2022 11:03:41 Urinary Incontinence Urinary Incontinence Urinary incontinence refers to a condition in which a person is unable to control where and when topass urine. A person with this condition will urinate involuntarily. This means that the person urinates when he or she does not mean to. What are the causes? This condition may be caused by: Medicines. Infections. Constipation. Overactive bladder muscles. Weak bladder muscles. Weak pelvic floor muscles. These muscles provide support for the bladder, intestine, and, in women,the uterus. Enlarged prostate in men. The prostate is a gland near the bladder. When it gets too big, it can pinch the urethra. With the urethra blocked, the bladder can weaken and lose the ability to empty properly. Surgery. Emotional factors, such as anxiety, stress, or post-traumatic stress disorder (PTSD). Spinal cord injury, nerve injury, or other neurological conditions. Pelvic organ prolapse. This happens in women when organs move out of place and into the vagina. This movement can prevent the bladder and urethra from working properly. What increases the risk? The following factors may make you more likely to develop this condition: Age. The older you are, the higher the risk. Obesity. Being physically inactive. and childbirth. Menopause. Diseases that affect the nerves or spinal cord. Long-term, or chronic, coughing. This can increase pressure on the bladder and pelvic floor muscles. What are the signs or symptoms? Symptoms may vary depending on the type of urinary incontinence you have. They include: A sudden urge to urinate, and passing urine involuntarily before you can get to a bathroom (urge incontinence). Suddenly passing urine when doing activities that force urine to pass, such as coughing, laughing, exercising, or sneezing (stress incontinence). Needing to urinate often but urinating only a small amount, or constantly dribbling urine (overflowincontinence). Urinating because you cannot get to the bathroom in time due to a physical disability, such as arthritis or injury, or due to a communication or thinking problem, such as Alzheimer's disease (functional incontinence). How is this diagnosed? This condition may be diagnosed based on: Your medical history. A physical exam. Tests, such as: ?Urine tests. ?X-rays of your kidney and bladder. ?Ultrasound. ?CT scan. ?Cystoscopy. In this procedure, a health care provider inserts a tube with a light and camera (cystoscope) through the urethra and into the bladder to check for problems. ?Urodynamic testing. These tests assess how well the bladder, urethra, and sphincter can store and release urine. There are different types of urodynamic tests, and they vary depending on what the test is measuring. To help diagnose your condition, your health care provider may recommend that you keep a log of when you urinate and how much you urinate. How is this treated? Treatment for this condition depends on the type of incontinence that you have and its cause. Treatment may include: Lifestyle changes, such as: ?Quitting smoking. ?Maintaining a healthy weight. ?Staying active. Try to get 150 minutes of moderate-intensity exercise every week. Ask your health care provider which activities are safe for you. ?Eating a healthy diet. ?Avoid high-fat foods, like fried foods. ?Avoid refined carbohydrates like white bread and white rice. ?Limit how much alcohol and caffeine you drink. ?Increase your fiber intake. Healthy sources of fiber include beans, whole grains, and fresh fruitsand vegetables. Behavioral changes, such as: ?Pelvic floor muscle exercises. ?Bladder training, such as lengthening the amount of time between bathroom breaks, or using the bathroom at regular intervals. ?Using techniques to suppress bladder urges. This can include distraction techniques or controlled breathing exercises. Medicines, such as: ?Medicines to relax the bladder muscles and prevent bladder spasms. ?Medicines to help slow or prevent the growth of a man's prostate. ?Botox injections. These can help relax the bladder muscles. Treatments, such as: ?Using pulses of electricity to help change bladder reflexes (electrical nerve stimulation). ?For women, using a medical supervisor to prevent urine leaks. This is a small, tampon-like, disposabledevice that is inserted into the urethra. ?Injecting collagen or carbon beads (bulking agents) into the urinary sphincter. These can help thicken tissue and close the bladder opening. ?Surgery. Follow these instructions at home: Lifestyle Limit alcohol and caffeine. These can fill your bladder quickly and irritate it. Keep yourself clean to help prevent odors and skin damage. Ask your health care provider about special skin creams and cleansers that can protect the skin from urine. Consider wearing pads or adult diapers. Make sure to change them regularly, and always change them right after experiencing incontinence. General instructions Take fqui-ndo-ktlhjje and prescription medicines only as told by your health care provider. Use the bathroom about every 3 4 hours, even if you do not feel the need to urinate. Try to empty your bladder completely every time. After urinating, wait a minute. Then try to urinate again. Make sure you are in a relaxed position while urinating. If your incontinence is caused by nerve problems, keep a log of the medicines you take and the times you go to the bathroom. Keep all follow-up visits. This is important. Where to find more information National [place] of [employer] and Digestive and Kidney Diseases: www.niddk.nih.gov [place] [employer]: www.urologyhealth.org Contact a health care provider if: You have pain that gets worse. Your incontinence gets worse. Get help right away if: You have a fever or chills. You are unable to urinate. You have redness in your groin area or down your legs. Summary Urinary incontinence refers to a condition in which a person is unable to control where and when topass urine. This condition may be caused by medicines, infection, weak bladder muscles, weak pelvic floor muscles, enlargement of the prostate (in men), or surgery. Factors such as older age, obesity, and childbirth, menopause, neurological diseases, andchronic coughing may increase your risk for developing this condition. Types of urinary incontinence include urge incontinence, stress incontinence, overflow incontinence, and functional incontinence. This condition is usually treated first with lifestyle and behavioral changes, such as quitting smoking, eating a healthier diet, and doing regular pelvic floor exercises. Other treatment options include medicines, bulking agents, medical devices, electrical nerve stimulation, or surgery. This information is not intended to replace advice given to you by your health care provider. Make sure you discuss any questions you have with your health care provider. Document Revised: 12/03/2020 Document Reviewed: 12/03/2020 [employer] Patient Education 2022 [employer]oms[employer]. Follow Up Care 06/26/2022 12:58:55 With:Gaurav MADRID, AMBER Greco, URO Address: [address] [place] [phone] When: Unknown Comments:sched rt uretero w/ possible stent [facility] 05-31-2023 NotePROCEDURE: XR KUB 1 VIEW DATE: 10/10/2022 5:33 PM CDT COMPARISONS: KUB from 03/23/2022. Ultrasound kidneys 08/22/2021. CT abdomen pelvis 06/24/2022 CLINICAL INDICATION: 57 years Female H/O: urinary stone FINDINGS: There is a large amount of stool throughout the colon. There is no distention of small bowel loops or abnormal stomach distention. Overall, the bowel gas pattern is within normal limits. Stool could obscure urinary calculi. There is evidence of multiple calculi of the right kidney based on this KUB. There is no clear evidence of left renal calculi. No definite calculi overlie the ureters. Phleboliths is noted of the left pelvis. The visualized osseous structures show no significant abnormalities. IMPRESSION: 1. Scattered nonobstructing right renal calculi also seen on previous exam 2. Prominent colonic stool Electronically authenticated by: CLARISSA VILLALTA Date: 2022-10-11 07:26[facility]03-22-2023 NotePROCEDURE: XR ANKLE LT MIN 3 V COMPARISON: 07/27/2022 HISTORY: Pain of left ankle joint FINDINGS: BONES: Again demonstrated is cortical irregularity along the dorsal distal talus seen on the lateral projection. No new fracture or dislocation. SOFT TISSUES:Soft tissue swelling dorsal hindfoot at the talus EFFUSION:None visible. OTHER: Negative. IMPRESSION: Stable avulsion fracture dorsal distal talus with overlying soft tissue swelling Electronically authenticated by: BENI ORTIZ Date: 2022-08-02 11:20[id number] NotePROCEDURE: XR ANKLE LT MIN 3 V HISTORY: Sprain of left ankle ; anterior ankle pain following injury COMPARISON: XR ankle left 03/10/2021 FINDINGS: BONES:Small, slightly lifted cortex along anterior dorsal margin of the talus near the talonavicular joint suspected to represent mild avulsion injury. SOFT TISSUES:No visible soft tissue swelling. EFFUSION:None visible. OTHER: Negative. IMPRESSION: 1. Minimally displaced cortical avulsion fracture from anterior dorsal margin of the talus. Electronically authenticated by: JUDSON ENGLISH Date: 2022-07-27 16:35[facility]02-03-2023 Hospital Discharge instructions Patient Education 06/16/2022 12:32:50 Dietary Guidelines to Help Prevent Kidney Stones Dietary Guidelines to Help Prevent Kidney Stones Kidney stones are deposits of minerals and salts that form inside your kidneys. Your risk of developing kidney stones may be greater depending on your diet, your lifestyle, the medicines you take, and whether you have certain medical conditions. Most people can reduce their chances of developing kidney stones by following the instructions below. Depending on your overall health and the type of kidney stones you tend to develop, your dietitian may give you more specific instructions. What are tips for following this plan? Reading food labels Choose foods with no salt added or low-salt labels. Limit your sodium intake to less than 1500 mg per day. Choose foods with calcium for each meal and snack. Try to eat about 300 mg of calcium at each meal.Foods that contain 200 500 mg of calcium per serving include: ?8 oz (237 ml) of milk, fortified nondairy milk, and fortified fruit juice. ?8 oz (237 ml) of kefir, yogurt, and soy yogurt. ?4 oz (118 ml) of tofu. ?1 oz of cheese. ?1 cup (300 g) of dried figs. ?1 cup (91 g) of cooked broccoli. ?1 3 oz can of sardines or mackerel. Most people need 1000 to 1500 mg of calcium each day. Talk to your dietitian about how much calciumis recommended for you. Shopping Buy plenty of fresh fruits and vegetables. Most people do not need to avoid fruits and vegetables, even if they contain nutrients that may contribute to kidney stones. When shopping for convenience foods, choose: ?Whole pieces of fruit. ?Premade salads with dressing on the side. ?Low-fat fruit and yogurt smoothies. Avoid buying frozen meals or prepared deli foods. Look for foods with live cultures, such as yogurt and kefir. Cooking Do not add salt to food when cooking. Place a salt shaker on the table and allow each person to addhis or her own salt to taste. Use vegetable protein, such as beans, textured vegetable protein (TVP), or tofu instead of meat in pasta, casseroles, and soups. Meal planning Eat less salt, if told by your dietitian. To do this: ?Avoid eating processed or premade food. ?Avoid eating fast food. Eat less animal protein, including cheese, meat, poultry, or fish, if told by your dietitian. To dothis: ?Limit the number of times you have meat, poultry, fish, or cheese each week. Eat a diet free of meat at least 2 days a week. ?Eat only one serving each day of meat, poultry, fish, or seafood. ?When you prepare animal protein, cut pieces into small portion sizes. For most meat and fish, one serving is about the size of one deck of cards. Eat at least 5 servings of fresh fruits and vegetables each day. To do this: ?Keep fruits and vegetables on hand for snacks. ?Eat 1 piece of fruit or a handful of berries with breakfast. ?Have a salad and fruit at lunch. ?Have two kinds of vegetables at dinner. Limit foods that are high in a substance called oxalate. These include: ?Spinach. ?Rhubarb. ?Beets. ?Potato chips and samoan fries. ?Nuts. If you regularly take a diuretic medicine, make sure to eat at least 1 2 fruits or vegetables high in potassium each day. These include: ?Avocado. ?Banana. ?Calhoun, prune, carrot, or tomato juice. ?Baked potato. ?Cabbage. ?Beans and split peas. General instructions Drink enough fluid to keep your urine clear or pale yellow. This is the most important thing you can do. Talk to your health care provider and dietitian about taking daily supplements. Depending on your health and the cause of your kidney stones, you may be advised: ?Not to take supplements with vitamin C. ?To take a calcium supplement. ?To take a daily probiotic supplement. ?To take other supplements such as magnesium, fish oil, or vitamin B6. Take all medicines and supplements as told by your health care provider. Limit alcohol intake to no more than 1 drink a day for non women and 2 drinks a day for men. One drink equals 12 oz of beer, 5 oz of wine, or 1 oz of hard liquor. Lose weight if told by your health care provider. Work with your dietitian to find strategies and an eating plan that works best for you. What foods are not recommended? Limit your intake of the following foods, or as told by your dietitian. Talk to your dietitian about specific foods you should avoid based on the type of kidney stones and your overall health. Grains Breads. Bagels. Rolls. Baked goods. Salted crackers. Cereal. Pasta. Vegetables Spinach. Rhubarb. Beets. Canned vegetables. Pickles. Olives. Meats and other protein foods Nuts. Nut butters. Large portions of meat, poultry, or fish. Salted or cured meats. Deli meats. Hotdogs. Sausages. Dairy Cheese. Beverages Regular soft drinks. Regular vegetable juice. Seasonings and other foods Seasoning blends with salt. Salad dressings. Canned soups. Soy sauce. Ketchup. Barbecue sauce. Canned pasta sauce. Casseroles. Pizza. Lasagna. Frozen meals. Potato chips. Kuwaiti fries. Summary You can reduce your risk of kidney stones by making changes to your diet. The most important thing you can do is drink enough fluid. You should drink enough fluid to keep your urine clear or pale yellow. Ask your health care provider or dietitian how much protein from animal sources you should eat eachday, and also how much salt and calcium you should have each day. This information is not intended to replace advice given to you by your health care provider. Make sure you discuss any questions you have with your health care provider. Document Released: 08/25/2011 Document Revised: 08/20/2019 Document Reviewed: 04/10/2017 [employer] Patient Education 2020 [employer]. Follow Up Care 06/15/2022 09:49:16 With:Gaurav MADRID, AMBER Greco, URO Address: When: Unknown [facility] Wilian 11-11-2022 Hospital Discharge instructions Patient Education 03/24/2022 14:51:05 Kidney Stones, Hjqj-yj-Seqs Kidney Stones Kidney stones are rock-like masses that form inside of the kidneys. Kidneys are organs that make pee (urine). A kidney stone may move into other parts of the urinary tract, including: The tubes that connect the kidneys to the bladder (ureters). The bladder. The tube that carries urine out of the body (urethra). Kidney stones can cause very bad pain and can block the flow of pee. The stone usually leaves your body (passes) through your pee. You may need to have a doctor take out the stone. What are the causes? Kidney stones may be caused by: A condition in which certain glands make too much parathyroid hormone (primary hyperparathyroidism). A buildup of a type of crystals in the bladder made of a chemical called uric acid. The body makes uric acid when you eat certain foods. Narrowing (stricture) of one or both of the ureters. A kidney blockage that you were born with. Past surgery on the kidney or the ureters, such as gastric bypass surgery. What increases the risk? You are more likely to develop this condition if: You have had a kidney stone in the past. You have a family history of kidney stones. You do not drink enough water. You eat a diet that is high in protein, salt (sodium), or sugar. You are overweight or very overweight (obese). What are the signs or symptoms? Symptoms of a kidney stone may include: Pain in the side of the belly, right below the ribs (flank pain). Pain usually spreads (radiates) to the groin. Needing to pee often or right away (urgently). Pain when going pee (urinating). Blood in your pee (hematuria). Feeling like you may vomit (nauseous). Vomiting. Fever and chills. How is this treated? Treatment depends on the size, location, and makeup of the kidney stones. The stones will often pass out of the body through peeing. You may need to: Drink more fluid to help pass the stone. In some cases, you may be given fluids through an IV tube put into one of your veins at the hospital. Take medicine for pain. Make changes in your diet to help keep kidney stones from coming back. Sometimes, medical procedures are needed to remove a kidney stone. This may involve: A procedure to break up kidney stones using a beam of light (laser) or shock waves. Surgery to remove the kidney stones. Follow these instructions at home: Medicines Take msna-ksh-ujggwti and prescription medicines only as told by your doctor. Ask your doctor if the medicine prescribed to you requires you to avoid driving or using heavy machinery. Eating and drinking Drink enough fluid to keep your pee pale yellow. You may be told to drink at least 8 10 glasses of water each day. This will help you pass the stone. If told by your doctor, change your diet. This may include: ?Limiting how much salt you eat. ?Eating more fruits and vegetables. ?Limiting how much meat, poultry, fish, and eggs you eat. Follow instructions from your doctor about eating or drinking restrictions. General instructions Collect pee samples as told by your doctor. You may need to collect a pee sample: ?24 hours after a stone comes out. ?8 12 weeks after a stone comes out, and every 6 12 months after that. Strain your pee every time you pee (urinate), for as long as told. Use the strainer that your doctor recommends. Do not throw out the stone. Keep it so that it can be tested by your doctor. Keep all follow-up visits as told by your doctor. This is important. You may need follow-up tests. How is this prevented? To prevent another kidney stone: Drink enough fluid to keep your pee pale yellow. This is the best way to prevent kidney stones. Eat healthy foods. Avoid certain foods as told by your doctor. You may be told to eat less protein. Stay at a healthy weight. Where to find more information National Kidney Foundation (NKF): www.kidney.org [facility] (UCF): www.urologyhealth.org Contact a doctor if: You have pain that gets worse or does not get better with medicine. Get help right away if: You have a fever or chills. You get very bad pain. You get new pain in your belly (abdomen). You pass out (faint). You cannot pee. Summary Kidney stones are rock-like masses that form inside of the kidneys. Kidney stones can cause very bad pain and can block the flow of pee. The stones will often pass out of the body through peeing. Drink enough fluid to keep your pee pale yellow. This information is not intended to replace advice given to you by your health care provider. Make sure you discuss any questions you have with your health care provider. Document Released: 10/16/2008 Document Revised: 09/16/2019 Document Reviewed: 09/16/2019 [employer] Patient Education 2020 [employer]. Follow Up Care 03/21/2022 12:53:12 With:Gaurav MADRID, AMBER Greco, URO Address: When: Unknown [facility] 03-29-2022 Hospital Discharge instructions Patient Education 08/09/2021 12:31:23 Overactive Bladder, Adult Overactive Bladder, Adult Overactive bladder refers to a condition in which a person has a sudden need to pass urine. The person may leak urine if he or she cannot get to the bathroom fast enough (urinary incontinence). A person with this condition may also wake up several times in the night to go to the bathroom. Overactive bladder is associated with poor nerve signals between your bladder and your brain. Your bladder may get the signal to empty before it is full. You may also have very sensitive muscles thatmake your bladder squeeze too soon. These symptoms might interfere with daily work or social activities. What are the causes? This condition may be associated with or caused by: Urinary tract infection. Infection of nearby tissues, such as the prostate. Prostate enlargement. Surgery on the uterus or urethra. Bladder stones, inflammation, or tumors. Drinking too much caffeine or alcohol. Certain medicines, especially medicines that get rid of extra fluid in the body (diuretics). Muscle or nerve weakness, especially from: ?A spinal cord injury. ?Stroke. ?Multiple sclerosis. ?Parkinson's disease. Diabetes. Constipation. What increases the risk? You may be at greater risk for overactive bladder if you: Are an older adult. Smoke. Are going through menopause. Have prostate problems. Have a neurological disease, such as stroke, dementia, Parkinson's disease, or multiple sclerosis (MS). Eat or drink things that irritate the bladder. These include alcohol, spicy food, and caffeine. Are overweight or obese. What are the signs or symptoms? Symptoms of this condition include: Sudden, strong urge to urinate. Leaking urine. Urinating 8 or more times a day. Waking up to urinate 2 or more times a night. How is this diagnosed? Your health care provider may suspect overactive bladder based on your symptoms. He or she will diagnose this condition by: A physical exam and medical history. Blood or urine tests. You might need bladder or urine tests to help determine what is causing your overactive bladder. You might also need to see a health care provider who specializes in urinary tract problems (urologist). How is this treated? Treatment for overactive bladder depends on the cause of your condition and whether it is mild or severe. You can also make lifestyle changes at home. Options include: Bladder training. This may include: ?Learning to control the urge to urinate by following a schedule that directs you to urinate at regular intervals (timed voiding). ?Doing Kegel exercises to strengthen your pelvic floor muscles, which support your bladder. Toning these muscles can help you control urination, even if your bladder muscles are overactive. Special devices. This may include: ?Biofeedback, which uses sensors to help you become aware of your body's signals. ?Electrical stimulation, which uses electrodes placed inside the body (implanted) or outside the body. These electrodes send gentle pulses of electricity to strengthen the nerves or muscles that control the bladder. ?Women may use a plastic device that fits into the vagina and supports the bladder (pessary). Medicines. ?Antibiotics to treat bladder infection. ?Antispasmodics to stop the bladder from releasing urine at the wrong time. ?Tricyclic antidepressants to relax bladder muscles. ?Injections of botulinum toxin type A directly into the bladder tissue to relax bladder muscles. Lifestyle changes. This may include: ?Weight loss. Talk to your health care provider about weight loss methods that would work best for you. ?Diet changes. This may include reducing how much alcohol and caffeine you consume, or drinking fluids at different times of the day. ?Not smoking. Do not use any products that contain nicotine or tobacco, such as cigarettes and e-cigarettes. If you need help quitting, ask your health care provider. Surgery. ?A device may be implanted to help manage the nerve signals that control urination. ?An electrode may be implanted to stimulate electrical signals in the bladder. ?A procedure may be done to change the shape of the bladder. This is done only in very severe cases. Follow these instructions at home: Lifestyle Make any diet or lifestyle changes that are recommended by your health care provider. These may include: ?Drinking less fluid or drinking fluids at different times of the day. ?Cutting down on caffeine or alcohol. ?Doing Kegel exercises. ?Losing weight if needed. ?Eating a healthy and balanced diet to prevent constipation. This may include: ?Eating foods that are high in fiber, such as fresh fruits and vegetables, whole grains, and beans. ?Limiting foods that are high in fat and processed sugars, such as fried and sweet foods. General instructions Take wdzj-bem-pkwmxmb and prescription medicines only as told by your health care provider. If you were prescribed an antibiotic medicine, take it as told by your health care provider. Do notstop taking the antibiotic even if you start to feel better. Use any implants or pessary as told by your health care provider. If needed, wear pads to absorb urine leakage. Keep a journal or log to track how much and when you drink and when you feel the need to urinate. This will help your health care provider monitor your condition. Keep all follow-up visits as told by your health care provider. This is important. Contact a health care provider if: You have a fever. Your symptoms do not get better with treatment. Your pain and discomfort get worse. You have more frequent urges to urinate. Get help right away if: You are not able to control your bladder. Summary Overactive bladder refers to a condition in which a person has a sudden need to pass urine. Several conditions may lead to an overactive bladder. Treatment for overactive bladder depends on the cause and severity of your condition. Follow your health care provider's instructions about lifestyle changes, doing Kegel exercises, keeping a journal, and taking medicines. This information is not intended to replace advice given to you by your health care provider. Make sure you discuss any questions you have with your health care provider. Document Released: 02/24/2010 Document Revised: 08/21/2019 Document Reviewed: 05/16/2018 [employer] Patient Education 2020 [employer]. Follow Up Care 05/10/2021 12:57:15 With:Gino Saleh MD, Tracy Sexton, URO Address: When:3 months Comments:increased VESIcare/renal us and pvr [facility] evaluation + Plan note Future Appointments Appointment Date:11/08/2021 09:45:00 AM Scheduled Provider:Tracy Christian Jr., MD Location:[facility] Appointment Type:URO Office Visit [facility] Hospital course Narrative No data available for this section [facility] Discharge instructions No data available for this section [facility] No data available for this section [facility] Summary Purpose Family History No Family History Records FoundNo Family History Records Found No data available for this section No data available for this section Advance Directives No Advanced Directives Records FoundNo Advanced Directives Records Found Additional Source Comments Patient Care team informatio n (unrecognized section and content) Personnel Name: Phillip Unger MD Address: Address: [address] [place] [address] Personnel Name: Phillip Unger MD Address: Address: [address] [place] [address] Personnel Name: Phillip Unger MD Address: Address: [address] [place] [address] [place] [id number]- Personnel Name: Phillip Unger MD Address: Address: [address] [place] [address] [place] [id number]- Personnel Name: Phillip Unger MD Address: Address: [address] [place] [address] [place] [id number]- Personnel Name: Phillip Unger MD Address: Address: [address] [place] [address] [place] [id number]- INFORMATION SOURCE (unrecogn ized section and content) DATE CREATED AUTHOR 10/21/2022 [facility] DATE CREATED AUTHOR AUTHOR'S ORGANIZ ATION 03/29/2023 [facility] FOR RECORDS PERTAINING TO PATIENTS WHO ARE OR HAVE BEEN ENROLLED IN A CHEMICAL DEPENDENCY/SUBSTANCEABUSE PROGRAM, SOME INFORMATION MAY BE OMITTED. This clinical summary was aggregated from multiple sources. Caution should be exercised in using it in the provision of clinical care. This summary normalizes information from multiple sources, and as a consequence, information in this document may materially change the coding, format and clinical context of patient data. In addition, data may be omitted in some cases. CLINICAL DECISIONS SHOULD BE BASED ON THE PRIMARY CLINICAL RECORDS. [facility] [employer] [facility]. provides no warranty or guarantee of the accuracy or completeness of information in this document.
== END 2023-06-06 09:29 | disposition home or self-care (01) ==
LOC: US 09:28
PROVIDERS: PCP Family Medicine; Visit Provider Physician Assistant
DX: N20.0 Calculus of kidney (principal)
CPT/HCPCS: 76775

== ENCOUNTER 2023-07-17 12:44 | Outpatient (OUT) | payer BC, SELFPAY ==
--- OUTSIDE RECORDS SUMMARY | 2023-07-13 09:45 | XMS_ITS | CCD ---
Author Name Unknown Address [address] [place] [address] Organization [facility] Care Team Providers Care Market Editor Name Role Phone Phillip Unger Primary Care Physician LUE ., AUBRIE M Attending Unavailable LUE ., AUBRIE M Admitting Unavailable HOY ., DR FISHER Primary Care Unavailable DIAB ., CHANEL Attending Unavailable HOLiz ., DR FISHER Primary Care Unavailable SHIRLENE, FRANCK Consulting Unavailable DIAB ., CHANEL Admitting Unavailable SOPHIA . NATALIO Consulting Unavailable DIAB ., CHNAEL Consulting Unavailable ZOHREH ., DR FISHER Primary Care Unavailable EUGENIO DIAMOND Attending Unavailable EUGENIO DIAMOND Admitting Unavailable LUE ., AUBRIE M Attending Unavailable LUE ., AUBRIE M Admitting Unavailable HOY .DR FISHER Primary Care Unavailable LUE ., AUBRIE Rebecca Consulting Unavailable LUE ., AUBRIE M Attending Unavailable LUE ., AUBRIE M Admitting Unavailable LUE ., AUBRIE M Consulting Unavailable DIMITRIY .DR FISHER Primary Care Unavailable ERMA ISSA Consulting Unavailable JEMMA GANNON Consulting Unavailable LUE ., AUBRIE M Attending Unavailable LUE ., AUBRIE M Admitting Unavailable HOY .DR FISHER Primary Care Unavailable LUE ., AUBRIE M Consulting Unavailable LUE ., AUBRIE M Consulting Unavailable LUE ., AUBRIE M Attending Unavailable LUE ., AUBRIE M Admitting Unavailable ZOHREH .DR FISHER Primary Care Unavailable CLARISSA VILLALTA Consulting Unavailable ZOHREH .DR FISHER Primary Care Unavailable DR JUDSON ENGLISH Consulting Unavailable ANABEL LOPEZ Attending Unavailable ANABEL LOPEZ Admitting Unavailable ANABEL LOPEZ Consulting Unavailable ZOHREH .DR FISHER Consulting Unavailable HOLiz .DR FISHER Attending Unavailable HOY ., DR FISHER Admitting Unavailable HOY ., DR FISHER Primary Care Unavailable NADEGE GANNON Consulting Unavailable TREKAILASH PERAZA Attending Unavailable TREKAILASH PERAZA Admitting Unavailable HOY ., DR FISHER Primary Care Unavailable TAMEKA, DR JUDSON Valera Consulting Unavailable TREKAILASH PERAZA Consulting Unavailable HOY ., DR FISHER Primary Care Unavailable GINO ROE ., DR TRACY Sexton Attending Unavaila ble CHRISTIAN ., DR TRACY Sexton Admitting Unavaila ble HOY ., DR FISHER Primary Care Unavailable HIGHLANDER, EUGENIO Raya Attending Unavailable HIGHLANDER, EUGENIO D Admitting Unavailable HOY ., DR FISHER Consulting Unavailable HOY ., DR FISHER Attending Unavailable HOY ., DR FISHER Admitting Unavailable HOY ., DR FISHER Primary Care Unavailable HOY ., DR FISHER Consulting Unavailable HOY ., DR FISHER Attending Unavailable HOY ., DR FISHER Admitting Unavailable HOY ., DR FISHER Primary Care Unavailable SCOTT, DR BENI Lugo Consulting Unavailable LUE .AUBRIE Attending Unavailable LUE ., AUBRIE Fernandez Admitting Unavailable SCOTT, DR BENI Lugo Consulting Unavailable HOY ., DR FISHER Primary Care Unavailable LUE ., AUBRIE Fernandez Consulting Unavailable HOY ., DR FISHER Primary Care Unavailable WEST, DR BENI Lugo Consulting Unavailable HIGHLANDER, PETER D Attending Unavailable HIGHLANDER, PETER D Admitting Unavailable HIGHLANDER, PETER D Consulting Unavailable Lue, Aubrie M. Attending Unavailable Lue, Aubrie M. Attending Unavailable Lue, Aubrie M. Attending Unavailable TRE, KAILASH E Attending Unavailable Lue, Aubrie M. Attending Unavailable Lue, Aubrie M. Attending Unavailable TRE, KAILASH E Attending Unavailable Lue, Aubrie M. Admitting Unavailable Lue, Aubrie M. Referring Unavailable Lue, Aubrie M. Attending Unavailable TRE, KAILASH E Attending Unavailable TRE, KAILASH E Admitting Unavailable Allergies Allergy Classification Reported Allergen(s) Allergy Type Date of Onset Reaction(s) Facility (1 source) No Known Medication Allergies; 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: [No Known Medication Allergies] Propensity to adverse reactions (disorder) [facility] Repository Medications Current Medications Medication Drug Class(es) [...] procedure, # 1 tab(s), Refills(s) 0, Pharmacy: [facility] [id number], 161, cm, 03/24/22 13:34:00 EST, Height/Length Dosing, [...] x 2 weeks, then 2x weekly thereafter, [facility] [id number], 161, cm, 06/16/22 11:27:00 EST, Height/Length Dosing, 70.1, kg, 06/16/22 11:27:00 EST, Weight Dosing Start Date: 06/16/22 Status: Ordered Start: 01-28-2021 Estrace 0.1 mg /g Cream 1 gm, Topical, MonWedFri, 42.5 gm, Refill(s) 11, Apply peasize amount to urethral/vaginal area M-W-F for two weeks. Then twice weekly after., [facility]/pharmacy #[id number], 163, cm, 01/28/21 9:13:00 EDT, Height/Length Dosing, 65, kg, 01/28/21 9:13:00 EDT, Weigh... Start Date: 01/28/21 Status: Ordered Start: 01-28-2021 Estrace 0.1 mg /g Cream 1 gm, Topical, MonWedFri, 42.5 gm, Refill(s) 11, Apply peasize amount to urethral/vaginal area M-W-F for two weeks. Then twice weekly after., [facility]/pharmacy #[id number], 163, cm, 01/28/21 9:13:00 EDT, Height/Length [...] Daily, # 90 tab(s), Refills(s) 3, Pharmacy: [facility]/pharmacy #[id number], 163, cm, 08/10/20 15:02:00 EDT, Height/Length [...] day(s), # 30 tab(s), Refills(s) 11, Pharmacy: [facility] [id number], 161, cm, 06/05/23 9:09:00 EST, Height/Length Dosing, [...] Daily, # 30 tab(s), Refills(s) 2, Pharmacy: [facility]/pharmacy #[id number], 163, cm, 01/28/21 9:13:00 EDT, Height/Length [...] later, # 2 cap(s), Refills(s) 0, Pharmacy: [facility] [id number], 161, cm, 03/24/22 13:34:00 EST, Height/Length Dosing, [...] te Episodic/Chronic Other aftercare (1 source) Other residential (current) drug therapy; 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: [OTH PRISON CURRENT DRUG THERAPY] Onset: 06-27-2022 Episodic Other aftercare (1 source) 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; 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] Onset: 06-28-2022 Episodic [...] Test Name Value Interpretation Reference Range Facility RAD - Ultrasound Reporton RAD - Ultrasound Report [id number] IFF [facility] C Urineon 06-07-2023 Bacteria identified Cx Nom (U) Microbiology PROCEDURE: Urine Culture [R1] SOURCE: U CleanCatch BODY SITE: COLLECTED DATE/TIME: 06/05/2023 09:39 EST RECEIVED DATE/TIME: 06/05/2023 17:49 EST START DATE/TIME: 06/05/2023 17:49 EST FREE TEXT SOURCE: KAILASH TOLEDO PA-C, PA-C, KAILASH Harry FINAL REPORTS Final Report [] Verified Date/Time: 06/07/2023 10:14 EST <10,000 cfu/ml Mixed skin contaminants Performing Locations R1: This test was performed at: [facility], [address] [place] [address], [address] [place] [address], [facility] Comment on above: Performed By: #### 2 [id number] ####[place] [address] RAD - MISCon 06-07-2023 RAD - MISC [id number] FF [facility] RAD - Ultrasound Reporton RAD - Ultrasound Report [id number] IFF Normal [facility] RAD - MISCon 06-06-2023 RAD - MISC [id number]#1.00T IFF Normal [facility] Screenson 06-06-2023 Screens [id number] TIFF Normal [facility] Ambulatory Visit Summaryon 0 06-05-2023 Ambulatory Visit Summary ELI CHUNG :1965 Visit Date:06/05/2023 Ambulatory Visit Instructions Your Diagnosis Kidney stone OAB (overactive bladder) Other urethral stricture, female Asymptomatic microscopic hematuria Intrinsic sphincter deficiency (ISD) Incomplete bladder emptying Dysuria Tests Performed Urnls Dip Stick Auto w/o Microscopy POC 08573 US Renal -- Results Pending -- Please visit your patient portal for your results or contact your primary care physician. Your Care Team Attending Physician - KAILASH TOLEDO PA-C Primary Care Physician - Phillip Unger MD This Is Your Medications List estradiol topical (Estrace 0.1 mg/g Cream) mirabegron (Myrbetriq 50 mg oral tablet, extended release) Contact prescribing physician if questions or concerns aripiprazole (Abilify 2 mg Tab) aspirin (Aspirin 81 mg Tab-Chew) ergocalciferol (Vitamin D) escitalopram (Lexapro 10 mg Tab) hydrochlorothiazide (hydrochlorothiazide 12.5 mg Cap) mirtazapine (Remeron 30 mg Tab) Procedures Performed Cystoscopic laser lithotripsy of ureteric calculus (10/25/2022), Cystoscopic insertion of ureteric stent (06/21/2022), Ureteroscopy (06/21/2022), Ankle (06/23/2021), ESWL of kidney (06/23/2020), Appendectomy, Hysterectomy, Tonsillectomy, Tubal ligation. Discharge Vitals Heart Rate (Peripheral) 82 Respiratory Rate 16 Blood Pressure 144/89 Height 161 cm Height 63 in Weight 78 kg Weight 171.6 lb BMI 30.09 What to do next You Need to Schedule the Following Appointments Follow Up with KAILASH TOLEDO PA-C, URL When: Where: [address] [address] Medications What How Much When Instructions Unchanged estradiol topical (Estrace 0.1 mg/ g Cream) See instructions Apply pea sized amount to urethra/ vagina 3-5x/ week x 2 weeks, then 2x weekly thereafter Unchanged mirabegron (Myrbetriq 50 mg oral tablet, extended release) 1 Tablets By Mouth Every day Duration: 30 Days Unchanged aripiprazole (Abilify 2 mg Tab) By Mouth Every day Contact prescribing physician if questions or concerns Unchanged aspirin (Aspirin 81 mg Tab-Chew) 1 Tablets By Mouth Every day Contact prescribing physician if questions or concerns Unchanged ergocalciferol (Vitamin D) By Mouth Every week Contact prescribing physician if questions or concerns Unchanged escitalopram (Lexapro 10 mg Tab) 1 Tablets By Mouth Every day Contact prescribing physician if questions or concerns Unchanged hydrochlorothiazide (hydrochlorothiazide 12.5 mg Cap) By Mouth Every day Contact prescribing physician if questions or concerns Unchanged mirtazapine (Remeron 30 mg Tab) By Mouth Once a day (at bedtime) Contact prescribing physician if questions or concerns Test Results Urnls Dip Stick Auto w/o Microscopy POC 03161 (06/05/2023) Bilirubin Urine Dipstick - Negative Blood Urine Dipstick - Negative Glucose Urine Dipstick - Negative Ketones Urine Dipstick - Negative Leukocytes Urine Dipstick - 1+ Small Nitrite Urine Dipstick - Negative Protein Urine Dipstick - Negative Specific [place] Urine Dipstick - 1.020 Urine Appearance Urine Dipstick - Clear Urine Color Urine Dipstick - Yellow Urobilinogen Urine Dipstick - Normal 0.2-1 EU/dl pH Urine Dipstick - 6 Allergies No Known Medication Allergies Problems Ongoing - Any problem that you are currently receiving treatment for. Asymptomatic microscopic hematuria Dysuria Incomplete bladder emptying Intrinsic sphincter deficiency (ISD) Kidney stone Microscopic hematuria Mixed incontinence OAB (overactive bladder) Other urethral stricture, female Proteinuria Urethra cancer Urinary incontinence Historical - Any problem that you are no longer receiving treatment for. BNC (bladder neck contracture) BPH with urinary obstruction Flank pain Patient Survey You may receive a survey via text or e-mail asking about your office visit. Please share your experience with us by completing your survey. We appreciate your feedback and thank you for choosing us for your care. Education Materials Flank Pain, Adult Flank pain is pain [...] different things. Follow these instructions at home: ? Drink enough fluid to keep your pee (urine) pale yellow. ? Rest as told by your doctor. ? Take ukht-fgk-eqpnfig and prescription medicines only as told by your doctor. ? Keep a journal to keep track of: ? What has caused your flank pain. ? What has made your flank pain feel better. ? Keep all follow-up visits. Contact a doctor if: ? Medicine does not help your pain. ? You have new symptoms. ? Your pain gets worse. ? Your sympto (more content not included)... Normal [facility] Patient Educationon 06-05-19 Patient Education Orthopedics Flank Pain, Adult Flank pain is pain [...] different things. Follow these instructions at home: ? Drink enough fluid to keep your pee (urine) pale yellow. ? Rest as told by your doctor. ? Take lulo-xny-odrdawi and prescription medicines only as told by your doctor. ? Keep a journal to keep track of: ? What has caused your flank pain. ? What has made your flank pain feel better. ? Keep all follow-up visits. Contact a doctor if: ? Medicine does not help your pain. ? You have new symptoms. ? Your pain gets worse. ? Your symptoms last longer than 2?3 days. ? You have trouble peeing. ? You are peeing more often than normal. Get help right away if: ? You have trouble breathing. ? You are short of breath. ? Your belly hurts, or it is swollen or red. ? You feel like you may vomit (nauseous). ? You vomit. ? You feel faint, or you faint. ? You have blood in your pee. ? You have flank pain and a fever. These symptoms may be an emergency. Get help right away. Call your local emergency services (911 in the [place] ? Do not wait to see if the symptoms will go away. ? Do not drive yourself to the hospital. Summary ? Flank pain is pain in your side. The flank is the area of your side between your upper belly (abdomen) and your spine. ? Flank pain may occur over a short time (acute), or it may be long-term or come back often (chronic). It may be mild or very bad. ? Pain in this area can be caused by many different things. ? Contact your doctor if your symptoms get worse or last longer than 2?3 days. This information is not intended to replace advice given to you by your health care provider. Make sure you discuss any questions you have with your health care provider. Document Revised: 07/11/2021 Document Reviewed: 07/11/2021 [employer] Patient Education ? 2022 Palmer Hargreaves. [facility] Urology Office/Clinic Noteon 06-05-2023 Urology Office/Clinic Note Chief Complaint OV HPI Staff KML pt. S/P Rt Laser Litho, Stone Basket Extraction & Rt Stent Placement 10/25/22. Stent later removed on 10/30/22. DX: Kidney Stone, OAB, Urethral Stricture, Microscopic Hematuria & ISD *Myrbetriq 50 mg QD & Estradiol Cream 2x/wk. Stone Analysis 10/25/22. Pt noted interest in Bulkamid at time of Stent Removal. KUB 06/04/23 @ [facility] (no report as of when preloading) Per Clinic note from time of stent removal, pt was to follow up w/FERNY. Dysuria: Pt. states having little bit of burning, on going a couple days ago Incomplete bladder emptying: yes, PVR 117mL Hematuria: no Frequency: about every 3-4 hours Urgency: no Nocturia: 2x's Stream: good stream Post void dripping: no Wearing pads/ Depends: yes, Pt. will use 1-2 pads a day Urge incontinence: a few times a week Stress incontinence: yes Incontinence without Sensory Awareness: no Abdominal pain: no Flank pain: Lt. flank pain, on going couple weeks History of Present Illness staff HPI reviewed and agree. Review of Systems PHQ Score Initial Depression Screen Score: 0 SCORE no fever, chills, malaise, myalgia. no rash/lesions. no chest pain, palpitations, or SOB. no abdominal pain, nausea, vomiting. no unilateral calf swelling, redness, pain Physical Exam Vitals & Measurements HR: 82(Peripheral) RR: 16 BP: 144/89 HT: 63 in HT: 161 cm WT: 78 kg WT: 171.6 lb BMI: 30.09 General: nontoxic, NAD Mouth: moist mucosa Lungs: normal respiratory effort Cardio: regular rate, good distal perfusion Abdomen: nondistended, no suprapubic distention or tenderness, no CVA tenderness Neurologic: Grossly normal Skin: No rashes or suspicious lesions Assessment/Plan KML pt. 1. Kidney stone (N20.0: Calculus of kidney) ESWL 06/23/20 DLS - CaPhos 60%, CaOx 40%, low volume. Pt has needed stents placed in the past. KUB 04/2021 - Left renal calculi. KUB at [facility] on 08/22/2021 - bilateral stones measuring up [...] 3 mm in LMP. 6 stones total. Cysto, Lt RPG, L ureteroscopy, stone basket extract, stent placement on string 06/21/22. Pt states she removed stent about 3-4 days after procedure, had pain for 24hrs after removal. Stone analysis - CaOx mono 70%, CaOx dihydrate 20%, hydroxyapatite 10% KUB 10/10/22 showed scattered nonobstructing calculi of right kidney, left negative R laser litho, stone basket extraction & Rt stent placement 10/25/22. Stent removal 10/30/22. Stone analysis - 70% ca ox mono, 20% ca ox di, 10% ca phos hydoxyl KUB 06/04/23 no suspicious renal calcification. Has complaints of left sided flank pain, ongoing for a few weeks. Colicky pain. States last week she could feel the pain radiate. Tender on exam today. UA today shows small leuks. Denies stone episode since last encounter. Pt states she has Levsin & Flomax at home, takes if she feels she has a stone. Discussed ordering a renal US to rule out hydronephrosis vs CT AP wo con for stone protocol. Pt wishes to proceed w/ renal US. Reiterated met w/up. Will hold off until stone is ruled out or confirmed. -Proceed w/ STAT renal US -Met w/up in the future 2. OAB (overactive bladder) (N32.81: Overactive bladder) Has not been taking Myrbetriq routinely. Does not feel medication helped. Pt wishes for med to be refilled. Drinks coffee in the morning, typically water and vitamin drink during the day. Discussed Botox and additional therapies in the future. -Myrbetriq refill sent to day to pharm on file 3. Other urethral stricture, female (N35.82: Other urethral stricture, female) Cysto by Dr. Nolasco 01/28/2021 noted annular proximal urethral scar tissue. Cysto/UD 04/12/22 showed proximal urethra/badder neck tightness, release at 26fr and 30fr. Mild improvement in frequency following dilation (however prior note states it did not) Continues using Estradiol 2x/week, which improved vaginal dryness. -Cont Estradiol 4. Asymptomatic microscopic hematuria (R31.21: Asymptomatic microscopic hematuria) Cysto 06/21/22 - neg UA today neg for blood. Denies visible blood in urine. Asx, cont to monitor 5. Intrinsic sphincter deficiency (ISD) (N36.42: Intrinsic sphincter deficiency (ISD)) BBS 16 Pt admits she has leakage when she bends over and walking. Has noticed increased sxs w/ new anxiety meds that caused weight gain and worsening constipation. Has been practicing Kegel's at home. Pt shared interest in Bulkamid procedure at the time of stent removal. PE a (more content not included)... Normal Call [facility] Comment on above: Result Comment: Elec tronically Signed By: KAILASH TOLEDO PA-C\.br\Date and Time Signed: 06/05/23 11:10 EST\.br\Electronically Co-Signed By: Rachel Toledo\.br\Date and Time Co-Signed: 06/05/23 09:42 EST Patient Letter FTon 2022 Patient Letter [facility] (Inserted Image. Milvia ble to display) March 27, [address] EL[address] CHUNG [address] [place] [id number] : 1965 Sent via certified and regular [...] Dr. Aubrie Nolasco MD [facility] [address], [place] [address] Aubrie Nolasco M.D. [facility] [place] [address] [address] [facility] Reminderson 03-27-2023 Reminders - From: Patricia Campoverde To: BRANDAN - Ria Nolasco; Sent: 10/30/2022 10:33:15 EDT Show up: 11/27/2022 00:00:00 EDT Subject: schedule FERNY Reminder/Recall called and schedule FERNY @ [facility] for patient at end of November 2022 From: Elham López (EU - Recalls Gaurav) To: Aubrie Nolasco MD; Patricia Campoverde; Sent: 12/07/2022 16:12:12 EDT Show up: 12/07/2022 16:06:00 EDT Subject: RE: schedule FERNY Per op note from 10/30/22 pt is to follow up with FERNY in 6wks. No follow up nor FERNY scheduled. Next available appt 01/12/23. How would you like to proceed? From: Aubrie Nolasco MD To: EU - Recallluis Nolasco; Cc: Patricia Campoverde; Sent: 12/18/2022 19:23:19 EDT Show up: 12/18/2022 19:23:00 EDT Subject: RE: schedule FERNY Call pt to schedule renal US and ensure she completes her metabolic stone workup as discussed at her cysto/stent removal. Schedule follow up afterwards to review. called patient, left message. FERNY order faxed to [facility] to be scheduled. Called pt and left VM to return our call and let us know if she has completed metabolic w/u or FERNY patient still has not called office, Sent unable to contact letter. If no response, will send certified. certified/non certified letter prepared and mailed to patient [facility] Provider Letteron 02-21-2023 Provider Letter (Inserted Image. Milvia ble to display) February 21, 20[address] CHUNG [address] [place] [phone] : 1965 Dear Eli , We have [...] Aubrie Nolasco MD [facility] [address], [place] [address] [facility] Lab Reportson 11-05-2022 Lab Reports [id number] D:127 [facility] Pre-Certification Formon Pre-Certification Form [id number]#1.00 CD:127 [facility] Operative Reporton Operative Report [id number]#1.00CD :127 [facility] Consent for Procedure/Surger yon 10-30-2022 Consent for Procedure/Surgery [id number]#1.00CD :127 [facility] Consent for Treatmenton 10-12 Consent for Treatment [id number] D:127 [facility] Inpatient Patient Summaryon 10-30-2022 Inpatient Patient Summary [address] [address] Clinical Summary Person Information Name: ELI CHUNG Age: 57 Years : 1965 Sex: Female PCP: Phillip Unger MD Marital Status: Race: White Ethnicity: Non- or Language: Czech Visit Id: Visit Reason: KIDNEY STONE Speciality: Acuity: Enc Type: Outpatient Med Service: Surgery Arrival: 10/30/2022 08:56:54 Discharge: Dispo Type: Address: [address] [place] [phone] Provider Notes: Diagnosis: Intrinsic sphincter deficiency (ISD); [...] MD Follow up: With: Address: When: Aubrie Gaurav [address] [phone] Business (1) [facility] [address], [place] [address], [facility] [address] [place] [id number] [phone] Business (1) Comments: Office will schedule Bulkamid and follow up renal US in 6 wks Patient Education Information: EU - Cystoscopy with Stent Removal Discharge Instructions (CUSTOM); EU - Cystoscopy Discharge Instructions (CUSTOM) Normal [facility] IntraOperative Documentson 0 10-30-2022 IntraOperative Documents [id number] :127 Normal [facility] Main OR Intraoperative Recor don 10-30-2022 Main OR Intraoperative Record IntraOp Document Type FTURO Summary Primary Physician: Aubrie Nolasco MD Finalized Date/Time: 10/30/22 10:26:17 Pt. Name: ELI CHUNG /Sex: 1965 Female Med Rec #: [id number] Physician: Aubrie Nolasco MD Financial #: [id number] Pt. Type: O Room/Bed: / Admit/Disch: 10/30/22 08:56:54 - Institution: Case Times FTURO Entry 1 Patient Times In Room 10/30/22 10:01:00 Out Room 10/30/22 10:22:00 Procedure Times Start 10/30/22 10:10:00 Stop 10/30/22 10:17:00 Anesthesia Times Last Modified By: Leta CORRAL, JARREDOR, Karyn 10/30/22 10:15:38 Case Attendance FTURO Entry 1 Entry 2 Entry 3 Case Attendee Gaurav MADRID, Aubrie Gillette RN, JARREDOR, Peace Ji Role Performed Surgeon - Primary Post Manager - Primary Scrub - Primary Time In 10/30/22 10:01:00 10/30/22 10:01:00 10/30/22 10:01:00 Time Out 10/30/22 10:22:00 10/30/22 10:22:00 10/30/22 10:22:00 Procedure CYSTOSCOPY LOCAL WITH CYSTOSCOPY LOCAL WITH CYSTOSCOPY LOCAL WITH STENT REMOVAL(Right) STENT REMOVAL(Right) STENT REMOVAL(Right) Comments Last Modified By: Leta CORRAL, CNOR, Leta CORRAL, JARREDOR, Leta CORRAL, JARREDOR, Karyn 10/30/22 Karyn 10/30/22 Karyn 10/30/22 [...] Out Aubrie Nolasco MD, Verified (If Participants MIREYA Gillette RN, Applicable) Garrison Boss Jessica D Time Out [...] Gillette RN, Ruthann 10/30/22 10:26 Normal [facility] Main OR Preoperative Recordo n 10-30-2022 Main OR Preoperative Record Holding Area Document Type FTURO Summary Primary Physician: Aubrie Nolasco MD Finalized Date/Time: 10/30/22 09:16:09 Pt. Name: ELI CHUNG Cordell FarnksB./Sex: 1965 Female Med Rec #: [id number] Physician: Aubrie Nolasco MD Financial #: [id number] Pt. Type: O Room/Bed: / Admit/Disch: 10/30/22 [...] 10/30/22 09:08:29 Finalized By: MIREYA Gillette RN, Ruthann Document Signatures Signed By: Kim Peña RN 10/30/22 09:11 Kim Peña RN 10/30/22 09:08 Kim Peña RN 10/30/22 09:08 Leta CORRAL, Karyn GOMES 10/30/22 09:16 [facility] Operative Reporton 3 Operative Report Patient: CHRIS CHUNG Age: 57 years Sex: Female : 1965 Associated Diagnoses: None Author: Aubrie Nolasco MD Procedure Operative Information Details: Date/ Time: 10/30/2022 10:21:00. Pre-Op Dx: Kidney stone (YOG17-SN N20.0, Discharge, Medical), Foreign Body in Bladder - T19.1XXA. Post-Op Dx: Same. Anesthesia Type: Local. Procedure: Local Cystoscopy with Stent Removal. Complications: None. Risks/Benefits/Informed Consent: Surgical risks, benefits, details of the [...] leakage, pt desires to proceed with Bulkamid. [facility] Comment on above: Result Comment: Elec tronically Signed By: Aubrie Nolasco MD\.br\Date and Time Signed: 10/30/22 10:23 EDT Outpatient Surgery Discharge Instructionon 10-30-2022 Outpatient Surgery Discharge Instruction [id number] :127 Normal [facility] Outpatient Surgery Discharge Instruction [place] [id number] Patient Discharge Instructions PERSON INFORMATION Name: ELI [...] 911 Follow up: With: Address: When: Aubrie Nolacso [address] [id number] [phone] Business (1) [address], [place] [address], [facility] [address] [place] [id number] [phone] [employer] (1) Comments: Office will schedule Bulkamid and [...] K, have received the attached patient education materials/instructions and have verbalized understanding: May we do a follow up call? Yes No I was present when discharge instructions were given Patient Signature Date Clinican/Nurse Signature _ Date You may receive a survey from Rosangela Olguin asking you to rate your care experience. Your feedback is important and will help us understand what we do well and how we can improve the quality of care we provide to you, your loved ones and our community. It?s an honor to serve you. Thank you for choosing [facility] Normal [facility] Progress Note-Physicianon Progress Note-Physician Patient: ELI CHUNG [...] x 2 weeks, then 2x weekly thereafter, [facility] [id number], 161, cm, 06/16/22 11:27:00 EST, Height/Length Dosing, 70.1, kg, 06/16/22 11:27:00 EST, Weight Do... Myrbetriq 50 mg oral tablet, extended release: 50 mg = 1 tab(s), Oral, Daily, X 30 day(s), # 30 tab(s), Refills(s) 11, Pharmacy: [facility] [id number], 161, cm, 06/16/22 11:27:00 EST, Height/Length Dosing, [...] and Plan: Diagnosis: Intrinsic sphincter deficiency (ISD) (JVX55-CP N36.42, Discharge, Medical), Mixed incontinence (SCI62-FM N39.46, Working, Medical), Kidney stone (LUV32-UH N20.0, Discharge, Medical). 57 year old female [...] dietary modifications -Follow-up stone analysis results from [facility] -Patient has Litholink kit at home. She [...] in caring for the patient. Normal [facility] Comment on above: Result Comment: Elec tronically Signed By: Gaurav MADRIDAubrie.brown\Date and Time Signed: 10/30/22 12:35 EDT Pre-Certification Formon Pre-Certification Form [id number] D:127 Normal [facility] Patient Educationon 10-12-19 23 Patient Education Urology Urinary Incontinence Urinary incontinence [...] stimulation). ? For women, using a medical or surgical instrument maker to prevent urine leaks. This is a [...] urine. ? (more content not included)... Normal Call [facility] Urology Office/Clinic Noteon 10-11-2022 Urology Office/Clinic Note [...] PCP. Stone Analysis 06/21/22 Pt went to [place] [facility] 06/24/22 due to hematuria & Lt flank pain. Given Kamas & Zofran at that time. CT 06/24/22 [...] 04/2021 - Left renal calculi. KUB at [facility] on 08/22/2021 - bilateral stones measuring up [...] 2x (more content not included)... Normal [facility] Comment on above: Result Comment: Elec tronically Signed By: Aubrie Nolasco MD\.br\Date and Time Signed: 10/11/22 12:19 EDT\.br\Electronically Co-Signed By: Yenny Garcias\.br\Date and Time Co-Signed: 10/11/22 11:12 EDT SHANTA by IFAon 07-25-2022 Antinuclear Antibodies, IFA Positive Abnormal [facility] Comment on above: Result Comment: Nega tive <1:80 Borderline 1:80 Positive >1:80 Performed By: #### C ALCULI #### [facility] [address] [address] [address] Michael Murillo Centriole Pattern Normal [facility] Comment on above: Performed By: #### C ALCULI #### [facility] [address] [address] [address] Michael Murillo Centromere Pattern Normal [facility] Comment on above: Performed By: #### C ALCULI #### [facility] [address] [address] [address] Michael Murillo Homogeneous Pattern 1:80 Normal [facility] Comment on above: Result Comment: ICAP nomenclature: AC-1 Performed By: #### C ALCULI #### [facility] [address] [address] [address] Michael Murillo Midbody Pattern Normal [facility] Comment on above: Performed By: #### C ALCULI #### [facility] [address] [place] [address] Dr. Michael Murillo Note: Comment Normal [facility] Comment on above: Result Comment: For more [...] titers Nucleosomes, Histones Drug-induced SLE Speckled Sm, SHOWER ROOM ATTENDANT, SCL-70, SLE,MCTD,PSS (diffuse form), SS-A/SS-B Sjogrens Nucleolar SCL-70, PM-1/SCL High titers Scleroderma, PM/DM Centromere Centromere PSS (limited form) w/Crest syndrome variable Nuclear Dot [id number] Primary Biliary Cirrhosis Nuclear GP210, Primary Biliary Cirrhosis Membrane addison A,B,C Performed By: #### C ALCULI #### [facility] [address] [place] [address] Dr. Michael Murillo Nuclear Dot Pattern Normal [facility] Comment on above: Performed By: #### C ALCULI #### [facility] [address] [place] [address] Dr. Michael Murillo Nuclear Membrane Pattern Normal [facility] Comment on above: Performed By: #### C ALCULI #### [facility] [address] [place] [address] Dr. Michael Murillo Nucleolar Pattern Normal [facility] Comment on above: Performed By: #### C ALCULI #### [facility] [address] [place] [address] Dr. Michael Murillo PCNA Pattern Normal [facility] Comment on above: Performed By: #### C ALCULI #### [facility] [address] [place] [address] Dr. Michael Murillo Speckled Pattern Normal [facility] Comment on above: Performed By: #### C ALCULI #### [facility] [address] [place] [address] Dr. Michael Murillo Spindle Apparatus Pattern Normal [facility] Comment on above: Performed By: #### C ALCULI #### [facility] [address] [place] [address] Dr. Michael Murillo INSULINon 07-22-2022 Insulin 10.8 uIU/mL Normal 2.6-24.[address] [facility] Comment on above: Performed By: #### I NSULIN #### [facility] [address] [place] [address] Dr. Michael Murillo CBC AUTO DIFFon 07-21-2022 BASO # 0.1 103/ul Normal 0.0-0.[address] [facility] Comment on above: Performed By: #### T 7, TSH, LIPID, CMP #### [facility] [address] [place] [address] Dr. Michael Murillo Basophils/100 WBC (Bld) 0.9 % Normal 0.2-2.[address] [facility] Comment on above: Performed By: #### T 7, TSH, LIPID, CMP #### [facility] [address] [place] [address] Dr. Michael Murillo EO # 0.1 103/ul Normal 0.0-0.[address] [facility] Comment on above: Performed By: #### T 7, TSH, LIPID, CMP #### [facility] [address] [place] [address] Dr. Michael Murillo Eosinophils/100 WBC (Bld) 2.1 % Normal 0.9-7.[address] [facility] Comment on above: Performed By: #### T 7, TSH, LIPID, CMP #### [facility] [address] [place] [address] Dr. Michael Murillo Erythrocyte distribution width (RBC) [Ratio] 12.7 % Normal 11.0-15.[address] [facility] Comment on above: Performed By: #### T 7, TSH, LIPID, CMP #### [facility] [address] [place] [address] Dr. Michael Murillo Hematocrit (Bld) [Volume fraction] 39.3 % Normal 36.0-48.[address] [facility] Comment on above: Performed By: #### T 7, TSH, LIPID, CMP #### [facility] [address] [place] [address] Dr. Michael Murillo Hemoglobin (Bld) [Mass/Vol] 13.1 g/dL Normal 12.0-16.[address] [facility] Comment on above: Performed By: #### T 7, TSH, LIPID, CMP #### [facility] [address] [place] [address] Dr. Michael Murillo IG # 0.02 10e3/ul Normal 0.00-0.[address] [facility] Comment on above: Performed By: #### T 7, TSH, LIPID, CMP #### [facility] [address] [place] [address] Dr. Michael Murillo IG % 0.4 % Normal 0.0-0.[address] [facility] Comment on above: Performed By: #### T 7, TSH, LIPID, CMP #### [facility] [address] [place] [address] Dr. Michael Murillo LYMPH # 1.5 103/ul Normal 1.2-3.8 [facility] Comment on above: Performed By: #### T 7, TSH, LIPID, CMP #### [facility] [address] [place] [address] Dr. Michael Murillo Lymphocytes/100 WBC (Bld) 25.5 % Normal 20.5-60.[address] [facility] Comment on above: Performed By: #### T 7, TSH, LIPID, CMP #### [facility] [address] [place] [address] [address] Michael Murillo MANUAL DIFF REQ NO Normal [facility] Comment on above: Performed By: #### T 7, TSH, LIPID, CMP #### [facility] [address] [place] [address] [address] Michael Murillo MCH (RBC) [Entitic mass] 30.1 pg Normal 26.7-34.0 [facility] Comment on above: Performed By: #### T 7, TSH, LIPID, CMP #### [facility] [address] [place] [address] Dr. Michael Murillo MCHC (RBC) [Mass/Vol] 33.3 g/dL Normal 29.9-35.2 [facility] Comment on above: Performed By: #### T 7, TSH, LIPID, CMP #### [facility] [address] [place] [address] Dr. Michael Murillo MCV (RBC) [Entitic vol] 90.3 fL Normal 81.0-99.[address] [facility] Comment on above: Performed By: #### T 7, TSH, LIPID, CMP #### [facility] [address] [place] [address] Dr. Michael Murillo MONO # 0.7 103/ul Normal 0.3-0.8 [facility] Comment on above: Performed By: #### T 7, TSH, LIPID, CMP #### [facility] [address] [place] [address] Dr. Michael Murillo Monocytes/100 WBC (Bld) 12.1 % Critically high 1.7-12.0 [facility] Comment on above: Performed By: #### T 7, TSH, LIPID, CMP #### [facility] [address] [place] [address] Dr. Michael Murillo NEUT # 3.4 103/ul Normal 1.4-6.5 [facility] Comment on above: Performed By: #### T 7, TSH, LIPID, CMP #### [facility] [address] [place] [address] Dr. Michael Murillo Neutrophils/100 WBC (Bld) 59.0 % Normal 43.0-75.[address] [facility] Comment on above: Performed By: #### T 7, TSH, LIPID, CMP #### [facility] [address] [place] [address] Dr. Michael Murillo Platelet mean volume (Bld) [Entitic vol] 9.5 fL Normal 9.5-13.[address] [facility] Comment on above: Performed By: #### T 7, TSH, LIPID, CMP #### [facility] [address] [place] [address] Dr. Michael Murillo PLT 253 103/ul Normal 150-450 [facility] Comment on above: Performed By: #### T 7, TSH, LIPID, CMP #### [facility] [address] [place] [address] Dr. Michael Murillo RBC 4.35 106/ul Normal 4.20-5.40 [facility] Comment on above: Performed By: #### T 7, TSH, LIPID, CMP #### [facility] [address] [place] [address] Dr. Michael Murillo WBC 5.7 103/ul Normal 4.0-11.0 [facility] Comment on above: Performed By: #### T 7, TSH, LIPID, CMP #### [facility] [address] [place] [address] Dr. Michael Murillo FREE THYROXINE INDEX T7on FTI 2.45 Normal 1.30-4.50 [facility] Comment on above: Performed By: #### T 7, TSH, LIPID, CMP #### [facility] [address] [place] [address] Dr. Michael Murillo T3U 34.0 % Normal 30.0-39.0 [facility] Comment on above: Performed By: #### T 7, TSH, LIPID, CMP #### [facility] [address] [place] [address] Dr. Michael Murillo T4 [Mass/Vol] 7.20 ug/dL Normal 4.80-13.90 [facility] Comment on above: Performed By: #### T 7, TSH, LIPID, CMP #### [facility] [address] [address] [address] Michael Murillo GLYCOHEMOGLOBIN A1Con 2022 ADA RECOMMENDATION SEE BELOW Normal [facility] Comment on above: Result Comment: ADA RECOMMENDED LIMIT 4.0 - 6.0 ADA THERAPEUTIC TARGET < 7.0 ACTION SUGGESTED > 7.0 Performed By: #### C ALCULI #### [facility] [address] [address] [address] Michael Murillo Glucose [Mass/Vol] 123 mg/dL Normal [facility] Comment on above: Performed By: #### C ALCULI #### [facility] [address] [place] [address] [address] Michael Murillo HbA1c (Bld) [Mass fraction] 5.9 % Normal 4.5-6.[address] [facility] Comment on above: Performed By: #### C ALCULI #### [facility] [address] [place] [address] Dr. Michael Murillo IRONon 07-21-2022 Iron [Mass/Vol] 110.0 ug/dL Normal 50.0-170.0 [facility] Comment on above: Performed By: #### C ALCULI #### [facility] [address] [place] [address] Dr. Michael Murillo LIPID PROFILEon 07-21-2022 CHOL-HDL RATIO NORM SEE BELOW Normal [facility] Comment on above: Result Comment: 3.3 - 4.4 LOW RISK 4.4 - 7.1 AVERAGE RISK 7.1 - 11.0 MODERATE RISK >11.0 HIGH RISK Performed By: #### T 7, TSH, LIPID, CMP #### [facility] [address] [place] [address] Dr. Michael Murillo Cholesterol [Mass/Vol] 257 mg/dL Critically high <=[address] [facility] Comment on above: Performed By: #### T 7, TSH, LIPID, CMP #### [facility] [address] [place] [address] [address] Michael Murillo Cholesterol in HDL [Mass/Vol] 89 mg/dL Critically high 40-[address] [facility] Comment on above: Performed By: #### T 7, TSH, LIPID, CMP #### [facility] [address] [address] [address] Michael Murillo Cholesterol in LDL [Mass/Vol] 156.4 mg/dL Normal [facility] Comment on above: Performed By: #### T 7, TSH, LIPID, CMP #### [facility] [address] [address] [address] Michael Murillo Cholesterol.total/Cho lesterol in HDL [Mass ratio] 2.9 {ratio} Normal [facility] Comment on above: Performed By: #### T 7, TSH, LIPID, CMP #### [facility] [address] [address] [address] Michael Murillo HDL NORMAL > or = 60 mg/dl - LO W CARDIOVASCULAR RISK <40 mg/dl - HIGH CARDIOVASCULAR RISK Normal [facility] Comment on above: Performed By: #### T 7, TSH, LIPID, CMP #### [facility] [address] [address] [address] Michael Murillo LDL CALC NORMAL SEE BELOW Normal [facility] Comment on above: Result Comment: <100 mg/dl OPTIMAL 100 - 129 mg/dl NEAR OR ABOVE OPTIMAL 130 - 159 mg/dl BORDERLINE HIGH 160 - 189 mg/dl HIGH >190 mg/dl VERY HIGH Performed By: #### T 7, TSH, LIPID, CMP #### [facility] [address] [address] [address] Michael Murillo Triglyceride [Mass/Vol] 58 mg/dL Normal <=150 [facility] Comment on above: Performed By: #### T 7, TSH, LIPID, CMP #### [facility] [address] [address] [address] Michael Murillo VLDL CALC 11.6 mg/dL Normal [facility] Comment on above: Performed By: #### T 7, TSH, LIPID, CMP #### [facility] [address] [place] [address] Dr. Michael Murillo PROF 14(COMP METB)on 023 Albumin [Mass/Vol] 3.8 g/dL Normal 3.4-5.0 [facility] Comment on above: Performed By: #### T 7, TSH, LIPID, CMP #### [facility] [address] [address] [address] Michael Murillo Albumin/Globulin [Mass ratio] 1.2 {ratio} Normal [facility] Comment on above: Performed By: #### T 7, TSH, LIPID, CMP #### [facility] [address] [place] [address] Dr. Michael Murillo ALP [Catalytic activity/Vol] 103 U/L Normal 46-[address] [facility] Comment on above: Performed By: #### T 7, TSH, LIPID, CMP #### [facility] [address] [address] [address] Michael Murillo ALT [Catalytic activity/Vol] 38 U/L Normal 14-[address] [facility] Comment on above: Performed By: #### T 7, TSH, LIPID, CMP #### [facility] [address] [place] [address] Dr. Michael Murillo Anion gap [Moles/Vol] 10.1 mmol/L Normal [facility] Comment on above: Performed By: #### T 7, TSH, LIPID, CMP #### [facility] [address] [place] [address] Dr. Michael Murillo AST [Catalytic activity/Vol] 27 U/L Normal 15-[address] [facility] Comment on above: Performed By: #### T 7, TSH, LIPID, CMP #### [facility] [address] [address] [address] Michael Murillo Bilirubin [Mass/Vol] 0.4 mg/dL Normal 0.2-1.[address] [facility] Comment on above: Performed By: #### T 7, TSH, LIPID, CMP #### [facility] [address] [place] [address] Dr. Michael Murillo Calcium [Mass/Vol] 8.9 mg/dL Normal 8.5-10.1 [facility] Comment on above: Performed By: #### T 7, TSH, LIPID, CMP #### [facility] [address] [place] [address] Dr. Michael Murillo Chloride [Moles/Vol] 107 mmol/L Normal 98-107 [facility] Comment on above: Performed By: #### T 7, TSH, LIPID, CMP #### [facility] [address] [address] [address] Michael Murillo CO2 [Moles/Vol] 29.8 mmol/L Normal 21.0-32.0 [facility] Comment on above: Performed By: #### T 7, TSH, LIPID, CMP #### [facility] [address] [address] [address] Michael Murillo Creatinine [Mass/Vol] 0.86 mg/dL Normal 0.55-1.[address] [facility] Comment on above: Performed By: #### T 7, TSH, LIPID, CMP #### [facility] [address] [place] [address] Dr. Michael Murillo EGFR-AF SPANISH >60 Normal >=60 [facility] Comment on above: Performed By: #### T 7, TSH, LIPID, CMP #### [facility] [address] [place] [address] Dr. Michael Murillo EGFR-NON AF SPANISH >60 Normal >=[address] [facility] Comment on above: Performed By: #### T 7, TSH, LIPID, CMP #### [facility] [address] [place] [address] Dr. Michael Murillo Globulin (S) [Mass/Vol] 3.2 g/dL Normal [facility] Comment on above: Performed By: #### T 7, TSH, LIPID, CMP #### [facility] [address] [place] [address] Dr. Michael Murillo Glucose [Mass/Vol] 96 mg/dL Normal 74-106 [facility] Comment on above: Performed By: #### T 7, TSH, LIPID, CMP #### [facility] [address] [place] [address] Dr. Michael Murillo Potassium [Moles/Vol] 3.9 mmol/L Normal 3.5-5.[address] [facility] Comment on above: Performed By: #### T 7, TSH, LIPID, CMP #### [facility] [address] [place] [address] Dr. Michael Murillo Protein [Mass/Vol] 7.0 g/dL Normal 6.4-8.2 [facility] Comment on above: Performed By: #### T 7, TSH, LIPID, CMP #### [facility] [address] [place] [address] Dr. Michael Murillo Sodium [Moles/Vol] 143 mmol/L Normal 136-145 [facility] Comment on above: Performed By: #### T 7, TSH, LIPID, CMP #### [facility] [address] [place] [address] Dr. Michael Murillo Urea nitrogen [Mass/Vol] 17.0 mg/dL Normal 7.0-18.[address] [facility] Comment on above: Performed By: #### T 7, TSH, LIPID, CMP #### [facility] [address] [place] [address] Dr. Michael Murillo Urea nitrogen/Creatinine [Mass ratio] 19.8 mg/mg Normal [facility] Comment on above: Performed By: #### T 7, TSH, LIPID, CMP #### [facility] [address] [place] [address] Dr. Michael Murillo TSHon 07-21-2022 TSH 2.426 uIU/mL Normal 0.358-3.740 [facility] Comment on above: Performed By: #### T 7, TSH, LIPID, CMP #### [facility] [address] [place] [address] Dr. Michael Murillo VITAMIN D 25 OHon 07-21-2022 VIT D 25-OH 62.1 ng/mL Normal [facility] Comment on above: Performed By: #### C ALCULI #### [facility] [address] [place] [address] Dr. Michael Murillo VIT D RANGES SEE BELOW Normal [facility] Comment on above: Result Comment: <20 ng/mL Vit D deficient 20 - <30 ng/mL Vit D insufficient 30 - 100 ng/mL Vit D sufficient >100 ng/mL Potential Toxicity Performed By: #### C ALCULI #### [facility] [address] [place] [address] Dr. Michael Murillo MRI FOOT LT WO [...] tendinous injury identified. Electronically authenticated by: NADEGE AGNNON Date: 2022-07-20 16:[address] [facility] NM BONE IMAGE 3 PHASEon 06-15 ND BONE IMAGE 3 PHASE EXAMINATION: ND GERTRUDE NE IMAGE 3 PHASE HISTORY: Pain [...] by: BENI ORTIZ Date: 2022-07-10 13:[address] [facility] Patient Correspondenceon Patient Correspondence [id number] :127 Normal [facility] ED Note-Physicianon 06-27-19 23 ED Note-Physician [id number]#[id number] D:127 Normal [facility] Lab Reportson 06-27-2022 Lab Reports [id number]#[id number] D:127 Normal [facility] Operative Reporton 3 Operative Report [id number]#[id number] D:127 Normal [facility] CALCULI, URINARYon 3 2,8 Dihydroxyadenine Normal [facility] Comment on above: Performed By: #### C ALCULI #### [facility] [address] [place] [address] Dr. Michael Murillo Ammonium Acid Urate Normal [facility] Comment on above: Performed By: #### C ALCULI #### [facility] [address] [place] [address] Dr. Michael Murillo Bilirubin Ql (U) Normal [facility] Comment on above: Performed By: #### C ALCULI #### [facility] [address] [place] [address] Dr. Michael Murillo Ca Oxalate Dihydrate 20 % Normal [facility] Comment on above: Performed By: #### C ALCULI #### [facility] [address] [address] [address] Michael Murillo CaHPO4 (Brushite) [facility] Comment on above: Performed By: #### C ALCULI #### [facility] [address] [place] [address] Dr. Michael Murillo Calcium Bilirubinate [facility] Comment on above: Performed By: #### C ALCULI #### [facility] [address] [place] [address] Dr. Michael Murillo Calcium Carbonate Normal [facility] Comment on above: Performed By: #### C ALCULI #### [facility] [address] [address] [address] Michael Murillo Calcium Oxalate Monohydrate 70 % Normal [facility] Comment on above: Performed By: #### C ALCULI #### [facility] [address] [address] [address] Michael Murillo Calcium Palmitate Normal [facility] Comment on above: Performed By: #### C ALCULI #### [facility] [address] [address] [address] Michael Murillo Calcium Phosphate Normal [facility] Comment on above: Performed By: #### C ALCULI #### [facility] [address] [address] [address] Michael Murillo Calcium Stearate [facility] Comment on above: Performed By: #### C ALCULI #### [facility] [address] [place] [address] Dr. Michael Murillo Carbonate Apatite Normal [facility] Comment on above: Performed By: #### C ALCULI #### [facility] [address] [address] [address] Michael Murillo Cellular Material Normal [facility] Comment on above: Performed By: #### C ALCULI #### [facility] [address] [address] [address] Michael Murillo Cholesterol [facility] Comment on above: Performed By: #### C ALCULI #### [facility] [address] [address] [address] Michael Murillo Color (U) Brown Normal [facility] Comment on above: Performed By: #### C ALCULI #### [facility] [address] [address] [address] Michael Murillo Comment Comment [facility] Comment on above: Result Comment: Calc ium phosphate (hydroxyl form) includes hydroxyapatite, amorphous calcium phosphate, and whitlockite. Hydroxyapatite is the most common of the calcium phosphate salts found in human kidney stones. Performed By: #### C ALCULI #### [facility] [address] [address] [address] Michael Murillo Comment Normal [facility] Comment on above: Performed By: #### C ALCULI #### [facility] [address] [address] [address] Michael Murillo Comment: Comment Normal [facility] Comment on above: Result Comment: Malissa feldman questions regarding Calculi Analysis contact [facility] at: [phone]. Performed By: #### C ALCULI #### [facility] [address] [place] [address] Dr. Michael Murillo Composition Comment Normal [facility] Comment on above: Result Comment: Perc entage (Represents the % composition) Performed By: #### C ALCULI #### [facility] [address] [place] [address] Dr. Michael Murillo Cystine Normal [facility] Comment on above: Performed By: #### C ALCULI #### [facility] [address] [place] [address] Dr. Michael Murillo Disclaimer: Comment Normal [facility] Comment on above: Result Comment: This test was developed and its performance characteristics determined by [facility]. It has not been cleared or approved by the Food and Drug Administration. Performed By: #### C ALCULI #### [facility] [address] [place] [address] Dr. Michael Murillo Dried Blood Normal [facility] Comment on above: Performed By: #### C ALCULI #### [facility] [address] [place] [address] Dr. Michael Murillo Drug or Metabolite Normal [facility] Comment on above: Performed By: #### C ALCULI #### [facility] [address] [place] [address] Dr. Michael Murillo Hydroxyapatite 10 % Normal [facility] Comment on above: Performed By: #### C ALCULI #### [facility] [address] [place] [address] Dr. Michael Murillo Mg NH4 PO4 (Struvite) Normal [facility] Comment on above: Performed By: #### C ALCULI #### [facility] [address] [place] [address] Dr. Michael Murillo MgHPO4 ([place] Normal [facility] Comment on above: Performed By: #### C ALCULI #### [facility] [address] [address] [address] Michael Murillo Other component(s) Normal [facility] Comment on above: Performed By: #### C ALCULI #### [facility] [address] [address] [address] Michael Murillo PDF . Normal [facility] Comment on above: Performed By: #### C ALCULI #### [facility] [address] [address] [address] Michael Murillo Photo Comment [facility] Comment on above: Result Comment: Phot ograph will follow under a separate cover Performed By: #### C ALCULI #### [facility] [address] [address] [address] Michael Murillo Please note: Comment Normal [facility] Comment on above: Result Comment: Calc antonino report will follow via computer, mail or custom feed mill operator helper delivery. Performed By: #### C ALCULI #### [facility] [address] [address] [address] Michael Murillo Size 3x[address] [facility] Comment on above: Result Comment: Mult iple pieces received. Dimensions of the largest piece reported. Performed By: #### C ALCULI #### [facility] [address] [address] [address] Michael Murillo Sodium Acid Urate Normal [facility] Comment on above: Performed By: #### C ALCULI #### [facility] [address] [address] [address] Michael Murillo Source Comment [facility] Comment on above: Result Comment: Left Kidney Performed By: #### C ALCULI #### [facility] [address] [address] [address] Murillo [facility] [facility] Comment on above: Performed By: #### C ALCULI #### [facility] [address] [address] [address] Michael Murillo Uric Acid [facility] Comment on above: Performed By: #### C ALCULI #### [facility] [address] [address] [address] Michael Murillo Uric Acid Dihydrate Normal [facility] Comment on above: Performed By: #### C ALCULI #### [facility] [address] [address] [address] Michael Murillo Weight 37 mg Normal [facility] Comment on above: Performed By: #### C ALCULI #### [facility] [address] [address] [address] Michael Murillo Xanthine Normal [facility] Comment on above: Performed By: #### C ALCULI #### [facility] [address] [address] [address] Michael Murillo Lab Reportson 06-26-2022 Lab Reports [id number]#[id number] D:127 Normal [facility] CT ABD/PELVIS WO CONon 06-25 CT ABD/PELVIS [...] related to sequela of recently passed stone. Infectious/inflammatory left-sided pyelonephritis/ureterit is is in the differential. 2. Subcentimeter bilateral [...] FRANCK GARBER Date: 2022-06-24 22:07 Normal [facility] CARDIAC LUDMILA ADMITon 023 CK [Catalytic activity/Vol] 111 U/L Normal 26-[address] [facility] Comment on above: Performed By: #### C MADM, CMP #### [facility] [address] [place] [address] Dr. Michael Murillo CK.MB [Mass/Vol] 0.90 ng/mL Normal <=3.60 [facility] Comment on above: Performed By: #### C MADM, CMP #### [facility] [address] [place] [address] Dr. Michael Murillo HSTROP 6.6 pg/mL Normal 4.0-51.3 [facility] Comment on above: Result Comment: CUT- OFF POINTS HAVE BEEN ESTABLISHED BASED ON THE FOURTH UNIVERSAL DEFINITIONS OF MYOCARDIAL INFARCTION. THE UPPER REFERENCE LIMIT (URL) OF TROPONIN, DEFINED THE 99TH PERCENTILE OF cTnI DISTRIBUTION IN A REFERENCE POPULATION, HAS BEEN CONFIRMED THE DECISION THRESHOLD FOR [place] DIAGNOSIS. Performed By: #### C PAWELM, CMP #### [facility] [address] [place] [address] Dr. Michael Murillo KEARA 42 ng/mL Normal 9-[address] [facility] Comment on above: Performed By: #### C PAWELM, CMP #### [facility] [address] [place] [address] Dr. Michael Murillo CBC AUTO DIFFon 06-24-2022 BASO # 0.0 103/ul Normal 0.0-0.[address] [facility] Comment on above: Performed By: #### C BC #### [facility] [address] [place] [address] Dr. Michael Murillo Basophils/100 WBC (Bld) 0.5 % Normal 0.2-2.[address] [facility] Comment on above: Performed By: #### C BC #### [facility] [address] [place] [address] Dr. Michael Murillo EO # 0.2 103/ul Normal 0.0-0.[address] [facility] Comment on above: Performed By: #### C BC #### [facility] [address] [place] [address] Dr. Michael Murillo Eosinophils/100 WBC (Bld) 2.0 % Normal 0.9-7.[address] [facility] Comment on above: Performed By: #### C BC #### [facility] [address] [place] [address] Dr. Michael Murillo Erythrocyte distribution width (RBC) [Ratio] 11.9 % Normal 11.0-15.[address] [facility] Comment on above: Performed By: #### C BC #### [facility] [address] [place] [address] Dr. Michael Murillo Hematocrit (Bld) [Volume fraction] 40.8 % Normal 36.0-48.[address] [facility] Comment on above: Performed By: #### C BC #### [facility] [address] [place] [address] Dr. Michael Murillo Hemoglobin (Bld) [Mass/Vol] 13.7 g/dL Normal 12.0-16.[address] [facility] Comment on above: Performed By: #### C BC #### [facility] [address] [place] [address] Dr. Michael Murillo IG # 0.02 10e3/ul Normal 0.00-0.[address] [facility] Comment on above: Performed By: #### C BC #### [facility] [address] [place] [address] Dr. Michael Murillo IG % 0.2 % Normal 0.0-0.[address] [facility] Comment on above: Performed By: #### C BC #### [facility] [address] [place] [address] Dr. Michael Murillo LYMPH # 2.0 103/ul Normal 1.2-3.[address] [facility] Comment on above: Performed By: #### C BC #### [facility] [address] [place] [address] Dr. Michael Murillo Lymphocytes/100 WBC (Bld) 24.3 % Normal 20.5-60.[address] [facility] Comment on above: Performed By: #### C BC #### [facility] [address] [place] [address] Dr. Michael Murillo MANUAL DIFF REQ NO Normal [facility] Comment on above: Performed By: #### C BC #### [facility] [address] [address] [address] Michael Murillo MCH (RBC) [Entitic mass] 30.2 pg Normal 26.7-34.[address] [facility] Comment on above: Performed By: #### C BC #### [facility] [address] [address] [address] Michael Murillo MCHC (RBC) [Mass/Vol] 33.6 g/dL Normal 29.9-35.[address] [facility] Comment on above: Performed By: #### C BC #### [facility] [address] [address] [address] Michael Murillo MCV (RBC) [Entitic vol] 89.9 fL Normal 81.0-99.[address] [facility] Comment on above: Performed By: #### C BC #### [facility] [address] [place] [address] Dr. Michael Murillo MONO # 1.0 103/ul Critically high 0.3-0.8 [facility] Comment on above: Performed By: #### C BC #### [facility] [address] [place] [address] Dr. Michael Murillo Monocytes/100 WBC (Bld) 11.9 % Normal 1.7-12.[address] [facility] Comment on above: Performed By: #### C BC #### [facility] [address] [address] [address] Michael Murillo NEUT # 5.1 103/ul Normal 1.4-6.5 [facility] Comment on above: Performed By: #### C BC #### [facility] [address] [place] [address] Dr. Michael Murillo Neutrophils/100 WBC (Bld) 61.1 % Normal 43.0-75.0 [facility] Comment on above: Performed By: #### C BC #### [facility] [address] [place] [address] Dr. Michael Murillo Platelet mean volume (Bld) [Entitic vol] 9.8 fL Normal 9.5-13.5 [facility] Comment on above: Performed By: #### C BC #### [facility] [address] [place] [address] Dr. Michael Murillo PLT 250 103/ul Normal 150-[address] [facility] Comment on above: Performed By: #### C BC #### [facility] [address] [place] [address] Dr. Michael Murillo RBC 4.54 106/ul Normal 4.20-5.[address] [facility] Comment on above: Performed By: #### C BC #### [facility] [address] [place] [address] Dr. Michael Murillo WBC 8.4 103/ul Normal 4.0-11.[address] [facility] Comment on above: Performed By: #### C BC #### [facility] [address] [place] [address] Dr. Michael Murillo ER URINE PROFILEon 3 Bilirubin Ql (U) Negative Normal NEGATIVE [facility] Comment on above: Performed By: #### C ALCULI #### [facility] [address] [place] [address] Dr. Michael Murillo Clarity (U) CLEAR Normal CLEAR [facility] Comment on above: Performed By: #### C ALCULI #### [facility] [address] [place] [address] Dr. Michael Murillo Color (U) YELLOW Normal YELLOW [facility] Comment on above: Performed By: #### C ALCULI #### [facility] [address] [place] [address] Dr. Michael ALFONSO A micrscopic examination will be performed if indicated. Normal [facility] Comment on above: Performed By: #### C ALCULI #### [facility] [address] [place] [address] Dr. Michael Murillo Glucose Ql (U) Negative Normal NEGATIVE [facility] Comment on above: Performed By: #### C ALCULI #### [facility] [address] [place] [address] Dr. Michael Murillo Hemoglobin Ql (U) LARGE Abnormal NEGATIVE [facility] Comment on above: Performed By: #### C ALCULI #### [facility] [address] [place] [address] Dr. Michael Murillo Ketones Ql (U) Negative Normal NEGATIVE [facility] Comment on above: Performed By: #### C ALCULI #### [facility] [address] [place] [address] Dr. Michael Murillo LEUKOCYTES Negative Normal NEGATIVE [facility] Comment on above: Performed By: #### C ALCULI #### [facility] [address] [place] [address] Dr. Michael Murillo Nitrite Ql (U) Negative Normal NEGATIVE [facility] Comment on above: Performed By: #### C ALCULI #### [facility] [address] [place] [address] Dr. Michael Murillo pH (U) 8.0 [pH] Normal 5-[address] [facility] Comment on above: Performed By: #### C ALCULI #### [facility] [address] [place] [address] Dr. Michael Murillo Protein (U) [Mass/Vol] 100 mg/dL Abnormal NEGATIVE/ TRACE [facility] Comment on above: Performed By: #### C ALCULI #### [facility] [address] [place] [address] Dr. Michael Murillo SPEC GRAVITY 1.015 Normal 1.005-<=1.025 [facility] Comment on above: Performed By: #### C ALCULI #### [facility] [address] [place] [address] Dr. Michael Murillo UR MICRO IND INDICATED Normal [facility] Comment on above: Performed By: #### C ALCULI #### [facility] [address] [place] [address] Dr. Michael Murillo Urobilinogen Qn (U) 0.2 {Kunal'U}/dL Normal 0.2 - 1. [address] [facility] Comment on above: Performed By: #### C ALCULI #### [facility] [address] [place] [address] Dr. Michael Murillo PROF 14(COMP METB)on 023 Albumin [Mass/Vol] 4.0 g/dL Normal 3.4-5.0 [facility] Comment on above: Performed By: #### C CHRISTOS, CMP #### [facility] [address] [address] [address] Michael Murillo Albumin/Globulin [Mass ratio] 1.1 {ratio} Normal [facility] Comment on above: Performed By: #### C CHRISTOS, CMP #### [facility] [address] [address] [address] Michael Murillo ALP [Catalytic activity/Vol] 104 U/L Normal 46-[address] [facility] Comment on above: Performed By: #### C CHRISTOS, CMP #### [facility] [address] [address] [address] Michael Murillo ALT [Catalytic activity/Vol] 30 U/L Normal 14-[address] [facility] Comment on above: Performed By: #### C CHRISTOS, CMP #### [facility] [address] [place] [address] Dr. Michael Murillo Anion gap [Moles/Vol] 13.0 mmol/L Normal [facility] Comment on above: Performed By: #### C CHRISTOS, CMP #### [facility] [address] [place] [address] Dr. Michael Murillo AST [Catalytic activity/Vol] 23 U/L Normal 15-[address] [facility] Comment on above: Performed By: #### C CHRISTOS, CMP #### [facility] [address] [address] [address] Michael Murillo Bilirubin [Mass/Vol] 0.3 mg/dL Normal 0.2-1.[address] [facility] Comment on above: Performed By: #### C CHRISTOS, CMP #### [facility] [address] [address] [address] Michael Murillo Calcium [Mass/Vol] 9.0 mg/dL Normal 8.5-10.1 [facility] Comment on above: Performed By: #### C CHRISTOS, CMP #### [facility] [address] [address] [address] Michael Murillo Chloride [Moles/Vol] 101 mmol/L Normal 98-107 [facility] Comment on above: Performed By: #### C CHRISTOS, CMP #### [facility] [address] [address] [address] Michael Murillo CO2 [Moles/Vol] 29.2 mmol/L Normal 21.0-32.0 [facility] Comment on above: Performed By: #### C CHRISTOS, CMP #### [facility] [address] [address] [address] Michael Murillo Creatinine [Mass/Vol] 0.97 mg/dL Normal 0.55-1.02 [facility] Comment on above: Performed By: #### C CHRISTOS, CMP #### [facility] [address] [address] [address] Michael Murillo EGFR-AF SPANISH >60 Normal >=60 [facility] Comment on above: Performed By: #### C CHRISTOS, CMP #### [facility] [address] [place] [address] Dr. Michael Murillo EGFR-NON AF SPANISH 59 mL/min/1.73m2 Critically low >=60 [facility] Comment on above: Performed By: #### C CHRISTOS, CMP #### [facility] [address] [place] [address] Dr. Michael Murillo Globulin (S) [Mass/Vol] 3.5 g/dL Normal [facility] Comment on above: Performed By: #### C CHRISTOS, CMP #### [facility] [address] [place] [address] Dr. Michael Murillo Glucose [Mass/Vol] 106 mg/dL Normal 74-106 [facility] Comment on above: Performed By: #### C CHRISTOS, CMP #### [facility] [address] [address] [address] Michael Murillo Potassium [Moles/Vol] 4.2 mmol/L Normal 3.5-5.[address] [facility] Comment on above: Performed By: #### C CHRISTOS, CMP #### [facility] [address] [place] [address] Dr. Michael Murillo Protein [Mass/Vol] 7.5 g/dL Normal 6.4-8.2 [facility] Comment on above: Performed By: #### C PAWELM, CMP #### [facility] [address] [place] [address] Dr. Michael Murillo Sodium [Moles/Vol] 139 mmol/L Normal 136-145 [facility] Comment on above: Performed By: #### C PAWELM, CMP #### [facility] [address] [place] [address] Dr. Michael Murillo Urea nitrogen [Mass/Vol] 19.0 mg/dL Critically high 7.0-18.[address] [facility] Comment on above: Performed By: #### C PAWELM, CMP #### [facility] [address] [place] [address] Dr. Michael Murillo Urea nitrogen/Creatinine [Mass ratio] 19.6 mg/mg Normal [facility] Comment on above: Performed By: #### C PAWELM, CMP #### [facility] [address] [place] [address] Dr. Michael Murillo URINE MICROSCOPIC ONLYon BACTERIA NONE SEEN Normal NONE SEEN [facility] Comment on above: Performed By: #### C ALCULI #### [facility] [address] [place] [address] Dr. Michael Murillo Bacteria identified Cx Nom (U) NOT INDICATED Normal [facility] Comment on above: Performed By: #### C ALCULI #### [facility] [address] [place] [address] Dr. Michael Murillo CAST NONE SEEN Normal NONE SEEN [facility] Comment on above: Performed By: #### C ALCULI #### [facility] [address] [place] [address] Dr. Michael Murillo Crystals LM Nom (Urine sed) NONE SEEN Normal NONE SEEN [facility] Comment on above: Performed By: #### C ALCULI #### [facility] [address] [place] [address] Dr. Michael Murilol Epithelial cells LM Ql (Urine sed) RARE Normal NONE SEEN /RARE [facility] Comment on above: Performed By: #### C ALCULI #### [facility] [address] [place] [address] Dr. Michael Murillo MUCOUS NONE SEEN Normal NONE SEEN [facility] Comment on above: Performed By: #### C ALCULI #### [facility] [address] [place] [address] Dr. Michael Murillo RBC (U) [#/Vol] /uL Abnormal 0-2 [facility] Comment on above: Performed By: #### C ALCULI #### [facility] [address] [place] [address] Dr. Michael Murillo WBC 0-2 Abnormal NONE SEEN [facility] Comment on above: Performed By: #### C ALCULI #### [facility] [address] [place] [address] Dr. Michael Murillo CBC AUTO DIFFon 06-19-2022 BASO # 0.1 103/ul Normal 0.0-0.[address] [facility] Comment on above: Performed By: #### C ALCULI #### [facility] [address] [place] [address] Dr. Michael Murillo Basophils/100 WBC (Bld) 0.8 % Normal 0.2-2.[address] [facility] Comment on above: Performed By: #### C ALCULI #### [facility] [address] [place] [address] Dr. Michael Murillo EO # 0.1 103/ul Normal 0.0-0.[address] [facility] Comment on above: Performed By: #### C ALCULI #### [facility] [address] [place] [address] Dr. Michael Murillo Eosinophils/100 WBC (Bld) 1.4 % Normal 0.9-7.0 [facility] Comment on above: Performed By: #### C ALCULI #### [facility] [address] [place] [address] Dr. Michael Murillo Erythrocyte distribution width (RBC) [Ratio] 12.1 % Normal 11.0-15.[address] [facility] Comment on above: Performed By: #### C ALCULI #### [facility] [address] [address] [address] Michael Murillo Hematocrit (Bld) [Volume fraction] 40.5 % Normal 36.0-48.[address] [facility] Comment on above: Performed By: #### C ALCULI #### [facility] [address] [address] [address] Michael Murillo Hemoglobin (Bld) [Mass/Vol] 13.3 g/dL Normal 12.0-16.[address] [facility] Comment on above: Performed By: #### C ALCULI #### [facility] [address] [place] [address] Dr. Michael Murillo IG # 0.02 10e3/ul Normal 0.00-0.[address] [facility] Comment on above: Performed By: #### C ALCULI #### [facility] [address] [place] [address] Dr. Michael Murillo IG % 0.3 % Normal 0.0-0.[address] [facility] Comment on above: Performed By: #### C ALCULI #### [facility] [address] [place] [address] Dr. Michael Murillo LYMPH # 1.7 103/ul Normal 1.2-3.[address] [facility] Comment on above: Performed By: #### C ALCULI #### [facility] [address] [place] [address] Dr. Michael Murillo Lymphocytes/100 WBC (Bld) 25.4 % Normal 20.5-60.[address] [facility] Comment on above: Performed By: #### C ALCULI #### [facility] [address] [address] [address] Michael Murillo MANUAL DIFF REQ NO Normal [facility] Comment on above: Performed By: #### C ALCULI #### [facility] [address] [place] [address] Dr. Michael Murillo MCH (RBC) [Entitic mass] 30.8 pg Normal 26.7-34.[address] [facility] Comment on above: Performed By: #### C ALCULI #### [facility] [address] [place] [address] Dr. Michael Murillo MCHC (RBC) [Mass/Vol] 32.8 g/dL Normal 29.9-35.[address] [facility] Comment on above: Performed By: #### C ALCULI #### [facility] [address] [place] [address] Dr. Michael Murillo MCV (RBC) [Entitic vol] 93.8 fL Normal 81.0-99.[address] [facility] Comment on above: Performed By: #### C ALCULI #### [facility] [address] [place] [address] Dr. Michael Murillo MONO # 0.7 103/ul Normal 0.3-0.[address] [facility] Comment on above: Performed By: #### C ALCULI #### [facility] [address] [place] [address] Dr. Michael Murillo Monocytes/100 WBC (Bld) 10.4 % Normal 1.7-12.[address] [facility] Comment on above: Performed By: #### C ALCULI #### [facility] [address] [place] [address] Dr. Michael Murillo NEUT # 4.1 103/ul Normal 1.4-6.[address] [facility] Comment on above: Performed By: #### C ALCULI #### [facility] [address] [place] [address] Dr. Michael Murillo Neutrophils/100 WBC (Bld) 61.7 % Normal 43.0-75.0 [facility] Comment on above: Performed By: #### C ALCULI #### [facility] [address] [place] [address] Dr. Michael Murillo Platelet mean volume (Bld) [Entitic vol] 10.0 fL Normal 9.5-13.[address] [facility] Comment on above: Performed By: #### C ALCULI #### [facility] [address] [place] [address] Dr. Michael Murillo PLT 245 103/ul Normal 150-450 [facility] Comment on above: Performed By: #### C ALCULI #### [facility] [address] [place] [address] Dr. Michael Murillo RBC 4.32 106/ul Normal 4.20-5.[address] [facility] Comment on above: Performed By: #### C ALCULI #### [facility] [address] [place] [address] Dr. Michael Murillo WBC 6.7 103/ul Normal 4.0-11.[address] [facility] Comment on above: Performed By: #### C ALCULI #### [facility] [address] [place] [address] Dr. Michael Murillo Formson 06-19-2022 Forms [id number]#1.00C D:127 Normal [facility] PROF CHEM 8 (BAS METB)on Anion gap [Moles/Vol] 11.9 mmol/L Normal [facility] Comment on above: Performed By: #### C ALCULI #### [facility] [address] [place] [address] Dr. Michael Murillo Calcium [Mass/Vol] 9.1 mg/dL Normal 8.5-10.1 [facility] Comment on above: Performed By: #### C ALCULI #### [facility] [address] [place] [address] Dr. Michael Murillo Chloride [Moles/Vol] 100 mmol/L Normal 98-[address] [facility] Comment on above: Performed By: #### C ALCULI #### [facility] [address] [place] [address] Dr. Michael Murillo CO2 [Moles/Vol] 28.3 mmol/L Normal 21.0-32.0 [facility] Comment on above: Performed By: #### C ALCULI #### [facility] [address] [place] [address] Dr. Michael Murillo Creatinine [Mass/Vol] 0.83 mg/dL Normal 0.55-1.[address] [facility] Comment on above: Performed By: #### C ALCULI #### [facility] [address] [place] [address] Dr. Michael Murillo EGFR-AF SPANISH >60 Normal >=60 [facility] Comment on above: Performed By: #### C ALCULI #### [facility] [address] [place] [address] Dr. Michael Murillo EGFR-NON AF SPANISH >60 Normal >=[address] [facility] Comment on above: Performed By: #### C ALCULI #### [facility] [address] [address] [address] Michael Murillo Glucose [Mass/Vol] 97 mg/dL Normal 74-106 [facility] Comment on above: Performed By: #### C ALCULI #### [facility] [address] [place] [address] Dr. Michael Murillo Potassium [Moles/Vol] 4.2 mmol/L Normal 3.5-5.[address] [facility] Comment on above: Performed By: #### C ALCULI #### [facility] [address] [place] [address] Dr. Michael Murillo Sodium [Moles/Vol] 136 mmol/L Normal 136-145 [facility] Comment on above: Performed By: #### C ALCULI #### [facility] [address] [place] [address] Dr. Michael Murillo Urea nitrogen [Mass/Vol] 18.0 mg/dL Normal 7.0-18.[address] [facility] Comment on above: Performed By: #### C ALCULI #### [facility] [address] [place] [address] Dr. Michael Murillo Urea nitrogen/Creatinine [Mass ratio] 21.7 mg/mg Normal [facility] Comment on above: Performed By: #### C ALCULI #### [facility] [address] [place] [address] Dr. Michael Murillo PROTIMEon 06-19-2022 INR Coag (PPP) [Relative time] {INR} Normal [facility] Comment on above: Performed By: #### C ALCULI #### [facility] [address] [place] [address] Dr. Michael Murillo INR GUIDELINES SEE BELOW Normal [facility] Comment on above: Result Comment: JORGE RED INR: 2.0 - 3.0 CONDITIONS NOT LISTED BELOW 2.5 - 3.5 FOR PROSTHETIC HEART VALVE REPLACEMENT 2.5 - 3.5 RECURRENT THROMBOSIS Performed By: #### C ALCULI #### [facility] [address] [address] [address] Michael Murillo PT Coag (PPP) [Time] 9.8 s Normal 9.0-11.[address] [facility] Comment on above: Performed By: #### C ALCULI #### [facility] [address] [address] [address] Michael Murillo PTTon 06-19-2022 aPTT Coag (Bld) [Time] 28.9 s Normal 22.3-36.[address] [facility] Comment on above: Performed By: #### C ALCULI #### [facility] [address] [address] [address] Michael Murillo Screenson 06-19-2022 Screens [id number]#1.00C D:127 Normal [facility] Patient Educationon 06-16-19 Patient Education Urology Dietary Guidelines to Help [...] Rhubarb. ? Beets. ? Potato chips and st lucian fries. ? Nuts. ? If you regularly take a diuretic medicine, make sure to eat at least 1?2 fruits or vegetables high in potassium each day. These include: ? Avocado. ? Banana. ? Randolph, prune, carrot, or tomato juice. ? Baked [...] other foods Seasoning blends with salt. Salad dr (more content not included)... [facility] Pre-Certification Formon Pre-Certification Form [id number] D:127 [facility] Urology Office/Clinic Noteon 06-16-2022 Urology Office/Clinic Note [...] 04/2021 shows Lateral renal calculi. KUB at [facility] on 08/22/2021 showed bilateral stones measuring up [...] (N35.82 (more content not included)... Normal [facility] Comment on above: Result Comment: Elec tronically Signed By: Gaurav MADRID, Aubrie Cho\.br\Date and Time Signed: 06/16/22 14:16 EST\.br\Electronically Co-Signed By: Lucía Wong\.br\Date and Time Co-Signed: 06/16/22 12:42 EST\.br\Electronically Co-Signed By: Lucía Wong\.br\Date and Time Co-Signed: 06/16/22 12:[address] ABD/PELVIS WO CONon 05-15 CT ABD/PELVIS [...] by: BENI ORTIZ Date: 2022-05-15 13:[address] [facility] XR KUB 1 VIEWon 03-24-2022 XR KUB [...] by: JUDSON ENGLISH Date: 2022-03-24 06:[address] [facility] Vital Signs Date Time Vital Sign Value Performing Clinician Mily damon 06-05-2023 08:55-0500 Blood Pressure Location KAILASH TOLEDO [facility] 06-05-2023 08:55-0500 Diastolic blood pressure 89 mm[Hg] KAILASH TOLEDO [facility] 06-05-2023 08:55-0500 Heart rate 82 /min KAILASH TOLEDO [facility] 06-05-2023 08:55-0500 Respiratory rate 16 /min KAILASH TOLEDO [facility] 06-05-2023 08:55-0500 Systolic blood pressure 144 mm[Hg] KAILASH TOLEDO [facility] 10-11-2022 09:53-0400 Blood Pressure Location Aubrie Lue [facility] 10-11-2022 09:53-0400 Diastolic blood pressure 78 mm[Hg] Aubrie Lue [facility] 10-11-2022 09:53-0400 Heart rate 68 /min Aubrie Lue [facility] 10-11-2022 09:53-0400 Respiratory rate 16 /min Aubrie Lue [facility] 10-11-2022 09:53-0400 Systolic blood pressure 140 mm[Hg] Aubrie Lue [facility] 06-16-2022 11:43-0500 Diastolic blood pressure 93 mm[Hg] Aubrie Lue [facility] 06-16-2022 11:43-0500 Mean blood pressure 119 mm[Hg] Aubrie Lue [facility] 06-16-2022 11:43-0500 Systolic blood pressure 172 mm[Hg] Aubrie Lue [facility] 06-16-2022 11:13-0500 Blood Pressure Location Aubrie Lue [facility] 06-16-2022 11:13-0500 Diastolic blood pressure 99 mm[Hg] Aubrie Lue [facility] 06-16-2022 11:13-0500 Heart rate 64 /min Aubrie Lue [facility] 06-16-2022 11:13-0500 Systolic blood pressure 166 mm[Hg] Aubrie Lue [facility] 03-24-2022 13:32-0500 Blood Pressure Location Aubrie Lue [facility] 03-24-2022 13:32-0500 Diastolic blood pressure 85 mm[Hg] Aubrie Lue [facility] 03-24-2022 13:32-0500 Heart rate 72 /min Aubrie Lue [facility] 03-24-2022 13:32-0500 Systolic blood pressure 170 mm[Hg] Aubrie Lue [facility] Encounters Encounter Date Encounter Type Care Provider Facility Start: 09-05-2023 ambulatory KAILASH TOLEDO [facility]ili [facility] Start: 06-05-2023 End: 06-06-2023 ambulatory KAILASH Piero FINLEYRY Facility[place] Start: 06-05-2023 End: 06-05-2023 Lab Drop off KAILASH FINLEYRY [facility] Start: 06-05-2023 End: 06-05-2023 Patient encounter procedure KAILASH Piero FINLEYRY [facility] Start: 10-30-2022 End: 10-31-2022 ambulatory Aubrie Cho Lue Facility[place] Start: 10-30-2022 End: 10-30-2022 Patient encounter procedure Aubrie M. Lue [facility] Start: 10-25-2022 End: 10-26-2022 ambulatory Aubrie Nolasco Facility:CD:[id number] Start: 10-11-2022 End: 10-12-2022 ambulatory Aubrie Nolasco Facility:[facility] Start: 10-11-2022 End: 10-11-2022 Patient encounter procedure Aubrie Nolasco [facility] Start: 10-10-2022 End: 10-11-2022 ambulatory AUBRIE NOLASCO [...] abnormal findings DR PHILLIP UNGER . [facility] Start: 07-21-2022 End: 07-22-[address] PHILLIP [...] preprocedural cardiovascular examination AUBRIE NOLASCO . [facility] Start: 06-21-2022 Encounter for preprocedural laboratory examination AUBRIE NOLASCO . [facility] Start: 06-21-2022 End: 02-08-2023 ambulatory AUBRIE M LUE . Facility: Start: 06-19-2022 End: 06-20-2022 ambulatory AUBRIE M LUE . Facility:[facility] Start: 06-19-2022 End: 06-20-2022 Encounter for preprocedural laboratory examination AUBRIE NOLASCO . Facility: Start: 06-16-2022 End: 06-17-2022 ambulatory Aubrie M. Lue Facility:[facility] Start: 06-16-2022 End: 06-16-2022 Patient encounter procedure Aubrie Fernandez. Natye [facility] Start: 06-15-2022 ambulatory Aubrie M. Lue Facility:[facility] Start: 05-12-2022 End: 05-13-2022 ambulatory AUBRIE M LUE . Facility: Start: 04-12-2022 End: 04-12-2022 ambulatory AUBRIE M LUE . Facility:[facility] Start: 03-24-2022 End: 03-24-2022 Patient encounter procedure Aubrie Nolasco [facility] Start: 03-23-2022 End: 03-24-2022 ambulatory KAILASH TOLEDO Facility:[facility] Start: 01-17-[address] [facility] Start: 08-09-2021 End: 08-09-2021 Patient encounter procedure Tracy Christian Jr. [facility] Procedures Date Procedure Procedure Detail Performing Clinician Start: 10-25-2022 Cystoscopic laser lithotripsy of ureteric calculus KAILASH TOLEDO Start: 06-21-2022 Cystoscopic insertio n of ureteric stent Aubrie Nolasco Start: 06-21-2022 Ureteroscopy Aubrie Nolasco Start: 06-23-2021 Ankle region structu re (body structure) Tracy Christian Jr. Comment on above: nerve repair Start: 06-23-2020 Extracorporeal shock wave lithotripsy of calculus of kidney Tracy Christian Jr. Appendectomy Tracy Velez Hysterectomy Tracy Velez Ligation of fallopian tube D kel Christian Jr. Tonsillectomy Tracy lerma Immunizations Immunization Date Immunization Notes Care Provider [facility] 01-12-2023 influenza virus vacc ine, unspecified formulation KAILASH TOLEDO [facility] 02-13-2022 influenza, unspecifi ed formulation Aubrie Nolasco [facility] 03-10-2021 influenza, unspecifi ed formulation Aubriebaltazar Nolasco [facility] 03-09-2021 SARS-CoV-2 (COVID-19 ) mRNA-1273 vaccine Aubrie Nolasco [facility] 06-11-2020 SARS-CoV-2 (COVID-19 ) Ad26 vaccine, recombinant Tracy Christian Jr. [facility] 06-09-2020 SARS-CoV-2 (COVID-19 ) mRNA-1273 vaccine Aubrie Nolasco [facility] 05-21-2020 SARS-CoV-2 (COVID-19 ) Ad26 vaccine, recombinant Tracy Christian Jr. [facility] 05-19-2020 SARS-CoV-2 (COVID-19 ) mRNA-1273 vaccine Aubrie Lue [facility] 05-12-2020 SARS-CoV-2 (COVID-19 ) mRNA-1273 vaccine Aubrie Lue [facility] 02-25-2020 influenza virus vacc ine, unspecified formulation Aubrie Lue [facility] 03-01-2016 tetanus toxoid, redu ann diphtheria toxoid, and acellular pertussis vaccine, adsorbed Aubrie Lue [facility] 05-14-2011 pneumococcal polysaccharide vaccine, 23 valent Aubrie Alfonsoe [facility] Payers Date Payer Category Payer Unknown [id number] 2019 Unknown [id number] 1965 Unknown [id number] 2.16.84 0.1.920094.3.579.2.593 1963 Unknown [id number] 2.16.84 0.1.416785.3.579.2.593 1963 Unknown [id number] 2.16.84 0.1.432888.3.579.2.593 1963 Unknown [id number] 2.16.84 0.1.457602.3.579.2.593 1963 Unknown [id number] 2.16.84 0.1.815063.3.579.2.593 1963 Unknown [id number] 2.16.84 0.1.680985.3.579.2.593 1963 Unknown [id number] 2.16.84 0.1.031765.3.579.2.593 1963 Unknown [id number] 2.16.84 0.1.393921.3.579.2.593 1963 Unknown [id number] 2.16.84 0.1.964355.3.579.2.593 1963 Unknown [id number] 2.16.84 0.1.806834.3.579.2.593 1963 Unknown [id number] 2.16.84 0.1.684215.3.579.2.593 1963 Unknown [id number] 2.16.84 0.1.204089.3.579.2.593 1963 Unknown [id number] 2.16.84 0.1.834708.3.579.2.593 1963 Unknown [id number] 2.16.84 0.1.002730.3.579.2.593 1963 Unknown [id number] 2.16.84 0.1.062252.3.579.2.593 1963 Unknown [id number] 2.16.84 0.1.672397.3.579.2.593 1963 Unknown [id number] 2.16.8 40.1.621459.3.579.2.727 1963 Unknown [id number] 2.16.8 40.1.973814.3.579.2.727 1963 Unknown [id number] 2.16.8 40.1.413746.3.579.2.727 1963 Unknown [id number] 2.16.8 40.1.678528.3.579.2.727 1963 Unknown [id number] 2.16.8 40.1.244524.3.579.2.727 1963 Unknown [id number] 2.16.8 40.1.172946.3.579.2.727 1963 Unknown [id number] 2.16.8 40.1.858953.3.579.2.727 1963 Unknown [id number] 2.16.8 40.1.335839.3.579.2.727 1959 Unknown [id number] 1959 Unknown [id number] Unknown Social History Date Type Detail Facility Start: 01-28-2021 End: 10-11-2022 Tobacco smoking status Never smoked tobacco (finding) [facility] Tobacco smoking status Never [facility] Sex Assigned At Female [facility] Functional Status Date Assessment Result Facility 06-05-2023 Functional Status N/A [facility] 10-30-2022 Functional Status N/A [facility] 10-11-2022 Functional Status N/A [facility] 06-16-2022 Functional Status N/A [facility] 03-24-2022 Functional Status N/A [facility] Clinical Notes 08-09-2021 to 06-05-2023 Note Date & Type Note Facility 06-05-2023 Evaluation + Plan note Diagnostic Tests PendingUrine Culture 06/05/23 [facility] 06-05-2023 Hospital Discharg e instructions Patient Education 06/05/2023 09:29:56 Flank Pain, Adult, Gevb-bm-Czel Flank Pain, Adult Flank pain is pain [...] Rest as told by your doctor. Take [id number] and prescription medicines only as told by [...] provider. Document Revised: 07/11/2021 Document Reviewed: 07/11/2021 [employer] Patient Education 2022 Palmer Hargreaves. Follow Up Care 05/30/2023 14:24:53 With:KAILASH TOLEDO PA-C, URL Address: [address] [place] [address] When: Unknown [facility] 10-30-2022 Evaluation + Plan note Extrac mike from: Title:- Clinic HOPD Note Author:Aubrie Nolasco MD Date:10/30/22 Impression and Plan Assessment and Plan: Diagnosis: Intrinsic sphincter deficiency (ISD) (WPL39-QY N36.42, Discharge, Medical), Mixed incontinence ([id number] N39.46, Working, Medical), Kidney stone ([id number]-XZ N20.0, Discharge, Medical). 57 year old female [...] dietary modifications -Follow-up stone analysis results from [facility] -Patient has Litholink kit at home. She [...] and procedures in caring for the patient. [facility] [facility] Note [id number]:[id number] [facility] 10-30-2022 NoteCystoscopy with Stent Removal ? Voiding [...] you have a fever over 100 degrees.[facility] 10-30-2022 Hospital Discharge instructions Patient Education 10/30/2022 [...] Up Care 10/27/2022 11:14:28 With:Aubrie Nolasco Address: [address] [place] [address]- [phone] Business (1) [facility] Brayan Alan, [address] [address]- [phone] Business (1) When: Unknown Comments:Office will schedule Bulk[employer] and follow up renal US in 6 wks [facility]05-31-2023 Hospital Discharge instructions Patient Education 10/11/2022 11:03:41 [...] nerve stimulation). ?For women, using a medical or surgical instrument maker to prevent urine leaks. This is a [...] right after experiencing incontinence. General instructions Take ktup-bkz-awgmfzd and prescription medicines only as told by [...] important. Where to find more information National [place] [employer] and [employer]estive [employer] Kidney Diseases: www.niddk.nih.gov [employer]: www.urologyhealth.org Contact a health care [...] provider. Document Revised: 12/03/2020 Document Reviewed: 12/03/2020 [employer] Patient Education 2022 Palmer Hargreaves. Follow Up Care 06/26/2022 12:58:55 With:Gaurav MADRID, Aubrie Cho URL, [facility] Address: [address], [place] [phone] When: Unknown Comments:sched rt uretero w/ possible stent [facility] 05-31-2023 NotePROCEDURE: XR KUB 1 VIEW DATE: [...] Electronically authenticated by: CLARISSA VILLALTA Date: 2022-10-11 07:26[facility]03-22-2023 NotePROCEDURE: XR ANKLE LT MIN 3 [...] authenticated by: BENI ORTIZ Date: 2022-08-02 11:20[id number] NotePROCEDURE: XR ANKLE LT MIN 3 V [...] Electronically authenticated by: JUDSON ENGLISH Date: 2022-07-27 16:35[facility]02-03-2023 Hospital Discharge instructions Patient Education 06/16/2022 [...] include: ?Spinach. ?Rhubarb. ?Beets. ?Potato chips and st lucian fries. ?Nuts. If you regularly take a diuretic medicine, make sure to eat at least 1 2 fruits or vegetables high in potassium each day. These include: ?Avocado. ?Banana. ?Randolph, prune, carrot, or tomato juice. ?Baked potato. [...] Casseroles. Pizza. Lasagna. Frozen meals. Potato chips. Bulgarian fries. Summary You can reduce your risk [...] 08/25/2011 Document Revised: 08/20/2019 Document Reviewed: 04/10/2017 [employer] Patient Education 2019 Palmer Hargreaves. Follow Up Care 06/15/2022 09:49:16 With:Gaurav MADRID, AMBER Greco, [facility] Address: When: Unknown [facility] 11-11-2022 Hospital Discharge instructions Patient Education 03/24/2022 14:51:05 Kidney Stones, Gzgw-si-Zfsk Kidney Stones Kidney stones are rock-like masses [...] Follow these instructions at home: Medicines Take vcbx-ppl-hielmjh and prescription medicines only as told by [...] 10/16/2008 Document Revised: 09/16/2019 Document Reviewed: 09/16/2019 [employer] Patient Education 2019 Palmer Hargreaves. Follow Up Care 03/21/2022 12:53:12 With:Gaurav MADRID, AMBER Greco, [facility] Address: When: Unknown [facility] 03-29-2022 Hospital Discharge instructions Patient Education 08/09/2021 [...] fried and sweet foods. General instructions Take ffqd-dux-cqxvkpw and prescription medicines only as told by [...] 02/24/2010 Document Revised: 08/21/2019 Document Reviewed: 05/16/2018 [employer] Patient Education 2020 [employer] Follow Up Care 05/10/2021 12:57:15 With:Gino Saleh MD, Tracy Sexton, [facility] Address: When:3 months Comments:increased VESIcare/renal us and pvr [facility] evaluation + Plan note Future Appointments Appointment Date:11/08/2021 09:45:00 AM Scheduled Provider:Tracy Christian Jr., MD Location:[facility] Appointment Type:URO Office Visit [facility] Hospital course Narrative No data available for this section [facility] Hospital Discharge instructions No data available for this section [facility] data available for this section [facility] Summary Purpose Family History No Family History Records Found No data available for this section No data available for this section No Family History Records Found Advance Directives No Advanced Directives Records FoundNo Advanced Directives Records Found Additional Source Comments Patient Care team informatio n (unrecognized section and content) Personnel Name: Phillip Unger MD Address: Address: [address] [place] [address] Personnel Name: Phillip Unger MD Address: Address: [address] [place] [address] Personnel Name: Phillip Unger MD Address: Address: [address] [place] [address] Personnel Name: Phillip Unger MD Address: Address: [address] [place] [address] GRETEL GODINEZ [address]- Personnel Name: Phillip Unger MD Address: Address: [address] [place] [address] [place] GODINEZ [id number]- Personnel Name: Phillip Unger MD Address: Address: [address] [place] [address] GRET[place] GODINEZ [id number]- INFORMATION SOURCE (unrecogn ized section and content) DATE CREATED AUTHOR 10/21/2022 [facility] DATE CREATED AUTHOR AUTHOR'S ORGANIZ ATION 06/14/2023 [facility] FOR RECORDS PERTAINING TO PATIENTS WHO ARE [...] BE BASED ON THE PRIMARY CLINICAL RECORDS. [employer] [facility]. provides no warranty or guarantee of the accuracy or completeness of information in this document.
[2023-07-17 13:07] LABS: Calcium 8.9 mg/dL (8.5-10.1); Estimated GFR (African America >60 (>=60); Estimated GFR (Non-African Ame >60 (>=60)
[2023-07-17] MEDS: DENOSUMAB 60 MG/ML SYRINGE SQ (13:50)
[2023-07-17 13:59] VITALS: BP 157/88; PULSE 83; RESP 16; TEMP 36.5; O2SAT 94
--- NOTE | 2023-07-17 14:02 | PC.NURSE ---
1350: Pt. to [facility] amb for Prolia injection. Seated in recliner. VSS. Medicated with Prolia 60mg SQ to right upper arm. Trace bleeding. Bandaid to site. Pt. tolerated without c/o.
--- NOTE | 2023-07-17 14:25 | PC.NURSE ---
1415: Pt. without s&s of adverse reaction. D/c'd amb. to home
== END 2023-07-17 12:45 | disposition home or self-care (01) ==
LOC: INF 12:44
PROVIDERS: PCP Family Medicine; Visit Provider Family Medicine
DX: M85.80 Other specified disorders of bone density and structure, unspecified site (principal)
CPT/HCPCS: 36415; 82310; 82565; 96372; J0897

== ENCOUNTER 2023-07-29 21:36 | Emergency (ER) | payer BC, SELFPAY ==
[2023-07-29 21:42] VITALS: BP 198/100; PULSE 80; RESP 15; TEMP 36.4; O2SAT 95; BMI 27.5
--- OUTSIDE RECORDS SUMMARY | 2023-07-29 21:44 | XMS_ITS | CCD ---
Author Name Unknown Address [address] [facility] [address] [facility] [address] [place] [address] Organization [facility] Care Team Providers Care Door Puller Name Role Phone Phillip Unger Primary Care Physician LUE ., AUBRIE M Attending Unavailable LUE ., AUBRIE M Admitting Unavailable HOY ., DR FISHER Primary Care Unavailable DIAB ., CHANEL Attending Unavailable HOLiz ., DR FISHER Primary Care Unavailable SHIRLENE, FRANCK Consulting Unavailable DIAB ., CHANEL Admitting Unavailable SOPHIA . NATALIO Consulting Unavailable DIAB ., CHANEL Consulting Unavailable ZOHREH ., DR FISHER Primary [...] ., DR FISHER Primary Care Unavailable HIGHLANDER, EGUENIO Raya Attending Unavailable HIGHLANDER, EUGENIO D Admitting Unavailable HOY ., DR FISHER Consulting Unavailable HOY ., DR FISHER Attending Unavailable HOY ., DR FISHER Admitting Unavailable HOY ., DR FISHER Primary Care Unavailable HOY ., DR FISHER Consulting Unavailable HOY ., DR FISHER Attending Unavailable HOY ., DR FISHER Admitting Unavailable HOY ., DR FISHER Primary Care Unavailable OCEAN GATE, DR BENI Lugo Consulting Unavailable LUE .AUBRIE Attending Unavailable LUE ., AUBRIE Fernandez Admitting Unavailable OCEAN GATE, DR BENI Lugo Consulting Unavailable HOY ., [...] Medication Allergies] Propensity to adverse reactions (disorder) [facility] Repository Medications Current Medications Medication Drug [...] procedure, # 1 tab(s), Refills(s) 0, Pharmacy: [facility] [id number], 161, cm, 03/24/22 13:34:00 EST, Height/Length Dosing, [...] x 2 weeks, then 2x weekly thereafter, [facility] [id number], 161, cm, 06/16/22 11:27:00 EST, Height/Length Dosing, 70.1, kg, 06/16/22 11:27:00 EST, Weight Dosing Start Date: 06/16/22 Status: Ordered Start: 01-28-2021 Estrace 0.1 mg /g Cream 1 gm, Topical, MonWedFri, 42.5 gm, Refill(s) 11, Apply peasize amount to urethral/vaginal area M-W-F for two weeks. Then twice weekly after., [facility]/pharmacy #[id number], 163, cm, 01/28/21 9:13:00 EDT, Height/Length Dosing, 65, kg, 01/28/21 9:13:00 EDT, Weigh... Start Date: 01/28/21 Status: Ordered Start: 01-28-2021 Estrace 0.1 mg /g Cream 1 gm, Topical, MonWedFri, 42.5 gm, Refill(s) 11, Apply peasize amount to urethral/vaginal area M-W-F for two weeks. Then twice weekly after., [facility]/pharmacy #[id number], 163, cm, 01/28/21 9:13:00 EDT, Height/Length [...] # 90 tab(s), Refills(s) 3, Pharmacy: [facility]/pharmacy #[id number], 163, cm, 08/10/20 15:02:00 EDT, Height/Length [...] day(s), # 30 tab(s), Refills(s) 11, Pharmacy: [facility] [id number], 161, cm, 06/05/23 9:09:00 EST, Height/Length Dosing, [...] # 30 tab(s), Refills(s) 2, Pharmacy: [facility]/pharmacy #[id number], 163, cm, 01/28/21 9:13:00 EDT, Height/Length [...] later, # 2 cap(s), Refills(s) 0, Pharmacy: [facility] [id number], 161, cm, 03/24/22 13:34:00 EST, Height/Length Dosing, [...] te Episodic/Chronic Other aftercare (1 source) Other care home (current) drug therapy; 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: [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] Onset: 06-27-2022 Episodic Other aftercare (1 source) [facility] (current) use of aspirin; 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: [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] Onset: 06-28-2022 Episodic [...] - Ultrasound Reporton RAD - Ultrasound Report [id number]#1.00T IFF [facility] C Urineon 06-07-2023 Bacteria identified Cx Nom [...] Locations R1: This test was performed at: [facility], [address] [place] [address], [address] [place] [address], [facility] Comment on above: Performed By: #### 2 [id number] ####[place] [address] RAD - MISCon 06-07-2023 RAD - MISC [id number]#1.00TI FF [facility] RAD - Ultrasound Reporton RAD - Ultrasound Report [id number]#1.00T IFF Normal [facility] RAD - MISCon 06-06-2023 RAD - MISC [id number]#1.00T IFF Normal [facility] Screenson 06-06-2023 Screens [id number]#1.00 TIFF Normal [facility] Ambulatory Visit Summaryon 0 06-05-2023 Ambulatory Visit Summary ELI CHUNG :1965 Visit Date:06/05/2023 Ambulatory Visit Instructions Your Diagnosis Kidney stone OAB (overactive bladder) Other urethral stricture, female Asymptomatic microscopic hematuria Intrinsic sphincter deficiency (ISD) Incomplete bladder emptying Dysuria Tests Performed Urnls Dip Stick Auto w/o Microscopy POC 78917 US Renal -- Results Pending -- Please [...] When: Where: [address] [place] [address] Medications What How Much When Instructions Unchanged [...] Urnls Dip Stick Auto w/o Microscopy POC 78732 (06/05/2023) Bilirubin Urine Dipstick - Negative Blood Urine Dipstick - Negative Glucose Urine Dipstick - Negative Ketones Urine Dipstick - Negative Leukocytes Urine Dipstick - 1+ Small Nitrite Urine Dipstick - Negative Protein Urine Dipstick - Negative Specific [place] Urine Dipstick - 1.020 Urine Appearance Urine [...] as told by your doctor. ? Take ymoo-xer-zvdypcp and prescription medicines only as told by [...] Your sympto (more content not included)... Normal [facility] Patient Educationon 06-05-19 Patient Education Orthopedics [...] as told by your doctor. ? Take xanv-yso-lwagcke and prescription medicines only as told by [...] provider. Document Revised: 07/11/2021 Document Reviewed: 07/11/2021 [employer] Patient Education ? 2022 [employer] [facility] Urology Office/Clinic Noteon 06-05-2023 Urology Office/Clinic Note [...] time of Stent Removal. KUB 06/04/23 @ [facility] (no report as of when preloading) Per [...] 04/2021 - Left renal calculi. KUB at [facility] on 08/22/2021 - bilateral stones measuring [...] EST Patient Letter FTon 2022 Patient Letter [facility] (Inserted Image. Milvia ble to display) March 27, [address] CHUNG [address] [place] [phone] : 1965 Sent via certified and regular [...] Dr. Aubrie Nolasco MD [facility] [address] [facility], [place] [address] Aubrie Nolasco M.D. [facility] [place] [address] [place] [address] [facility] Reminderson 03-27-2023 Reminders - From: Patricia Campoverde To: BRANDAN - Ria Nolasco; Sent: 10/30/2022 10:33:15 EDT Show up: 11/27/2022 00:00:00 EDT Subject: schedule FERNY Reminder/Recall called and schedule FERNY @ [facility] for patient at end of November [...] patient, left message. FERNY order faxed to [facility] to be scheduled. Called pt and left VM to return our call and let us know if she has completed metabolic w/u or FERNY patient still has not called office, Sent unable to contact letter. If no response, will send certified. certified/non certified letter prepared and mailed to patient [facility] Provider Letteron 02-21-2023 Provider Letter (Inserted Image. Milvia ble to display) February 21, 20[address] CHUNG [address] [place] [phone] : 1965 Dear Eli , We have [...] [facility] [address], [place] [address] [facility] Lab Reportson 11-05-2022 Lab Reports [id number]#1.00C D:127 [facility] Pre-Certification Formon Pre-Certification Form [id number]#1.00 CD:127 [facility] Operative Reporton Operative Report [id number]#1.00CD :127 [facility] Consent for Procedure/Surger yon 10-30-2022 Consent for Procedure/Surgery [id number]#1.00CD :127 [facility] Consent for Treatmenton 10-12 Consent for Treatment [id number]#1.00C D:127 [facility] Inpatient Patient Summaryon 10-30-2022 Inpatient Patient Summary [address] [address] Clinical Summary Person Information Name: ELI CHUNG Age: 57 Years : 1965 Sex: Female PCP: Phillip Unger MD Marital Status: Race: White Ethnicity: Non- or Language: Nigerian Visit Id: Visit Reason: KIDNEY STONE Speciality: Acuity: Enc Type: Outpatient Med Service: Surgery Arrival: 10/30/2022 08:56:54 Discharge: Dispo Type: Address: [address] [place] [address] [phone] Provider Notes: Diagnosis: Intrinsic sphincter deficiency (ISD); [...] up: With: Address: When: Aubrie Gaurav [address] [phone] Business (1) [facility] [address], [place] [address], [facility] [address] [phone] Business (1) Comments: Office will schedule Bulkamid and follow up renal US in 6 wks Patient Education Information: EU - Cystoscopy with Stent Removal Discharge Instructions (CUSTOM); EU - Cystoscopy Discharge Instructions (CUSTOM) Normal [facility] IntraOperative Documentson 0 10-30-2022 IntraOperative Documents [id number]#1.00CD :127 Normal [facility] Main OR Intraoperative Recor don 10-30-2022 Main OR Intraoperative Record IntraOp Document Type FTURO Summary Primary Physician: Aubrie Nolasco MD Finalized Date/Time: 10/30/22 10:26:17 Pt. Name: ELI CHUNG /Sex: 1965 Female Med Rec #: [id number] Physician: Aubrie Nolasco MD Financial #: [id number] Pt. Type: O Room/Bed: / Admit/Disch: 10/30/22 [...] Peace Ji Role Performed Surgeon - Primary Paper Inspector - Primary Scrub - Primary Time In [...] MIREYA Gillette RN, Ruthann 10/30/22 10:26 Normal [facility] Main OR Preoperative Recordo n 10-30-2022 Main OR Preoperative Record Holding Area Document Type FTURO Summary Primary Physician: Aubrie Nolasco MD Finalized Date/Time: 10/30/22 09:16:09 Pt. Name: ELI CHUNG Cordell FranksB./Sex: 1965 Female Med Rec #: [id number] Physician: Aubrie Nolasco MD Financial #: [id number] Pt. Type: O Room/Bed: / Admit/Disch: 10/30/22 [...] 09:08 Leta CORRAL, Karyn GOMES 10/30/22 09:16 [facility] Operative Reporton 3 Operative Report Patient: CHRIS CHUNG Age: 57 years Sex: Female : 1965 Associated Diagnoses: None Author: Aubrie Nolasco MD Procedure Operative Information Details: Date/ Time: 10/30/2022 10:21:00. Pre-Op Dx: Kidney stone (BHZ89-NI N20.0, Discharge, Medical), Foreign Body in Bladder [...] leakage, pt desires to proceed with Bulkamid. [facility] Comment on above: Result Comment: Elec tronically Signed By: Aubrie Nolasco MD\.br\Date and Time Signed: 10/30/22 10:23 EDT Outpatient Surgery Discharge Instructionon 10-30-2022 Outpatient Surgery Discharge Instruction [id number]#1.00CD :127 Normal [facility] Outpatient Surgery Discharge Instruction [place] [address] Patient Discharge Instructions PERSON INFORMATION Name: ELI [...] up: With: Address: When: Aubrie Nolasco [address] [phone] Business (1) [address], [place] [address], [facility] [address] [place] [phone] [employer] (1) Comments: Office will schedule Bulkamid and [...] to serve you. Thank you for choosing [facility] Normal [facility] Progress Note-Physicianon Progress Note-Physician Patient: ELI [...] x 2 weeks, then 2x weekly thereafter, [facility] [id number], 161, cm, 06/16/22 11:27:00 EST, Height/Length Dosing, 70.1, kg, 06/16/22 11:27:00 EST, Weight Do... Myrbetriq 50 mg oral tablet, extended release: 50 mg = 1 tab(s), Oral, Daily, X 30 day(s), # 30 tab(s), Refills(s) 11, Pharmacy: [facility] [id number], 161, cm, 06/16/22 11:27:00 EST, Height/Length Dosing, [...] and Plan: Diagnosis: Intrinsic sphincter deficiency (ISD) (WWY42-YY N36.42, Discharge, Medical), Mixed incontinence (NAE45-RM N39.46, Working, Medical), Kidney stone (VFF18-MZ N20.0, Discharge, Medical). 57 year old female [...] dietary modifications -Follow-up stone analysis results from [facility] -Patient has Litholink kit at home. [...] procedures in caring for the patient. Normal [facility] Comment on above: Result Comment: Elec tronically Signed By: Gaurav MADRIDAubrie.brown\Date and Time Signed: 10/30/22 12:35 EDT Pre-Certification Formon Pre-Certification Form [id number]#1.00C D:127 Normal [facility] Patient Educationon 10-12-19 23 Patient Education [...] stimulation). ? For women, using a medical insurance coding specialist to prevent urine leaks. This is a [...] ? (more content not included)... Normal Call [facility] Urology Office/Clinic Noteon 10-11-2022 Urology Office/Clinic Note [...] PCP. Stone Analysis 06/21/22 Pt went to [facility] [facility] 06/24/22 due to hematuria & Lt flank pain. Given Verndale & Zofran at that time. CT 06/24/22 [...] 04/2021 - Left renal calculi. KUB at [facility] on 08/22/2021 - bilateral stones measuring [...] Estradiol 2x (more content not included)... Normal [facility] Comment on above: Result Comment: Elec tronically Signed By: Aubrie Nolasco MD\.br\Date and Time Signed: 10/11/22 12:19 EDT\.br\Electronically Co-Signed By: Yenny Garcias\.br\Date and Time Co-Signed: 10/11/22 11:12 EDT SHANTA by IFAon 07-25-2022 Antinuclear Antibodies, IFA Positive Abnormal [facility] Comment on above: Result Comment: Nega tive <1:80 Borderline 1:80 Positive >1:80 Performed By: #### C ALCULI #### [facility] [address] [place] [address] [address] Michael Murillo Centriole Pattern Normal [facility] Comment on above: Performed By: #### C ALCULI #### [facility] [address] [place] [address] [address] Michael Murillo Centromere Pattern Normal [facility] Comment on above: Performed By: #### C ALCULI #### [facility] [address] [place] [address] [address] Michael Murillo Homogeneous Pattern 1:80 Normal [facility] Comment on above: Result Comment: ICAP nomenclature: AC-1 Performed By: #### C ALCULI #### [facility] [address] [place] [address] [address] Michael Murillo Midbody Pattern Normal [facility] Comment on above: Performed By: #### C ALCULI #### [facility] [address] [place] [address] Dr. Michael Murillo Note: Comment Normal [facility] Comment on above: Result Comment: For [...] titers Nucleosomes, Histones Drug-induced SLE Speckled Sm, MANAGER LSW, SCL-70, SLE,MCTD,PSS (diffuse form), SS-A/SS-B Sjogrens Nucleolar SCL-70, PM-1/SCL High titers Scleroderma, PM/DM Centromere Centromere PSS (limited form) w/Crest syndrome variable Nuclear Dot Sp100,j79-ipmvad Primary Biliary Cirrhosis Nuclear GP210, Primary Biliary Cirrhosis Membrane addison A,B,C Performed By: #### C ALCULI #### [facility] [address] [place] [address] Dr. Michael Murillo Nuclear Dot Pattern Normal [facility] Comment on above: Performed By: #### C ALCULI #### [facility] [address] [place] [address] Dr. Michael Murillo Nuclear Membrane Pattern Normal [facility] Comment on above: Performed By: #### C ALCULI #### [facility] [address] [place] [address] Dr. Michael Murillo Nucleolar Pattern Normal [facility] Comment on above: Performed By: #### C ALCULI #### [facility] [address] [place] [address] Dr. Michael Murillo PCNA Pattern Normal [facility] Comment on above: Performed By: #### C ALCULI #### [facility] [address] [place] [address] Dr. Michael Murillo Speckled Pattern Normal [facility] Comment on above: Performed By: #### C ALCULI #### [facility] [address] [place] [address] Dr. Michael Murillo Spindle Apparatus Pattern Normal [facility] Comment on above: Performed By: #### C ALCULI #### [facility] [address] [place] [address] Dr. Michael Murillo INSULINon 07-22-2022 Insulin 10.8 uIU/mL Normal 2.6-24.[address] [facility] Comment on above: Performed By: #### I NSULIN #### [facility] [address] [place] [address] Dr. Michael Murillo CBC AUTO DIFFon 07-21-2022 BASO # 0.1 103/ul Normal 0.0-0.[address] [facility] Comment on above: Performed By: #### T 7, TSH, LIPID, CMP #### [facility] [address] [place] [address] Dr. Michael Murillo Basophils/100 WBC (Bld) 0.9 % Normal 0.2-2.[address] [facility] Comment on above: Performed By: #### T 7, TSH, LIPID, CMP #### [facility] [address] [place] [address] Dr. Michael Murillo EO # 0.1 103/ul Normal 0.0-0.[address] [facility] Comment on above: Performed By: #### T 7, TSH, LIPID, CMP #### [facility] [address] [place] [address] Dr. Michael Murillo Eosinophils/100 WBC (Bld) 2.1 % Normal 0.9-7.[address] [facility] Comment on above: Performed By: #### T 7, TSH, LIPID, CMP #### [facility] [address] [place] [address] Dr. Michael Murillo Erythrocyte distribution width (RBC) [Ratio] 12.7 % Normal 11.0-15.[address] [facility] Comment on above: Performed By: #### T 7, TSH, LIPID, CMP #### [facility] [address] [place] [address] Dr. Michael Murillo Hematocrit (Bld) [Volume fraction] 39.3 % Normal 36.0-48.[address] [facility] Comment on above: Performed By: #### T 7, TSH, LIPID, CMP #### [facility] [address] [place] [address] Dr. Michael Murillo Hemoglobin (Bld) [Mass/Vol] 13.1 g/dL Normal 12.0-16.[address] [facility] Comment on above: Performed By: #### T 7, TSH, LIPID, CMP #### [facility] [address] [place] [address] Dr. Michael Murillo IG # 0.02 10e3/ul Normal 0.00-0.[address] [facility] Comment on above: Performed By: #### T 7, TSH, LIPID, CMP #### [facility] [address] [place] [address] Dr. Michael Murillo IG % 0.4 % Normal 0.0-0.[address] [facility] Comment on above: Performed By: #### T 7, TSH, LIPID, CMP #### [facility] [address] [place] [address] Dr. Michael Murillo LYMPH # 1.5 103/ul Normal 1.2-3.8 [facility] Comment on above: Performed By: #### T 7, TSH, LIPID, CMP #### [facility] [address] [place] [address] Dr. Michael Murillo Lymphocytes/100 WBC (Bld) 25.5 % Normal 20.5-60.[address] [facility] Comment on above: Performed By: #### T 7, TSH, LIPID, CMP #### [facility] [address] [place] [address] [address] Michael Murillo MANUAL DIFF REQ NO Normal [facility] Comment on above: Performed By: #### T 7, TSH, LIPID, CMP #### [facility] [address] [place] [address] [address] Michael Murillo MCH (RBC) [Entitic mass] 30.1 pg Normal 26.7-34.0 [facility] Comment on above: Performed By: #### T 7, TSH, LIPID, CMP #### [facility] [address] [place] [address] Dr. Michael Murillo MCHC (RBC) [Mass/Vol] 33.3 g/dL Normal 29.9-35.2 [facility] Comment on above: Performed By: #### T 7, TSH, LIPID, CMP #### [facility] [address] [place] [address] Dr. Michael Murillo MCV (RBC) [Entitic vol] 90.3 fL Normal 81.0-99.[address] [facility] Comment on above: Performed By: #### T 7, TSH, LIPID, CMP #### [facility] [address] [place] [address] Dr. Michael Murillo MONO # 0.7 103/ul Normal 0.3-0.8 [facility] Comment on above: Performed By: #### T 7, TSH, LIPID, CMP #### [facility] [address] [place] [address] Dr. Michael Murillo Monocytes/100 WBC (Bld) 12.1 % Critically high 1.7-12.0 [facility] Comment on above: Performed By: #### T 7, TSH, LIPID, CMP #### [facility] [address] [place] [address] Dr. Michael Murillo NEUT # 3.4 103/ul Normal 1.4-6.5 [facility] Comment on above: Performed By: #### T 7, TSH, LIPID, CMP #### [facility] [address] [place] [address] Dr. Michael Murillo Neutrophils/100 WBC (Bld) 59.0 % Normal 43.0-75.[address] [facility] Comment on above: Performed By: #### T 7, TSH, LIPID, CMP #### [facility] [address] [place] [address] Dr. Michael Murillo Platelet mean volume (Bld) [Entitic vol] 9.5 fL Normal 9.5-13.[address] [facility] Comment on above: Performed By: #### T 7, TSH, LIPID, CMP #### [facility] [address] [place] [address] Dr. Michael Murillo PLT 253 103/ul Normal 150-450 [facility] Comment on above: Performed By: #### T 7, TSH, LIPID, CMP #### [facility] [address] [place] [address] Dr. Michael Murillo RBC 4.35 106/ul Normal 4.20-5.40 [facility] Comment on above: Performed By: #### T 7, TSH, LIPID, CMP #### [facility] [address] [place] [address] Dr. Michael Murillo WBC 5.7 103/ul Normal 4.0-11.0 [facility] Comment on above: Performed By: #### T 7, TSH, LIPID, CMP #### [facility] [address] [place] [address] Dr. Michael Murillo FREE THYROXINE INDEX T7on FTI 2.45 Normal 1.30-4.50 [facility] Comment on above: Performed By: #### T 7, TSH, LIPID, CMP #### [facility] [address] [place] [address] Dr. Michael Murillo T3U 34.0 % Normal 30.0-39.0 [facility] Comment on above: Performed By: #### T 7, TSH, LIPID, CMP #### [facility] [address] [place] [address] Dr. Michael Murillo T4 [Mass/Vol] 7.20 ug/dL Normal 4.80-13.90 [facility] Comment on above: Performed By: #### T 7, TSH, LIPID, CMP #### [facility] [address] [place] [address] [address] Michael Murillo GLYCOHEMOGLOBIN A1Con 2022 ADA RECOMMENDATION SEE BELOW Normal [facility] Comment on above: Result Comment: ADA RECOMMENDED LIMIT 4.0 - 6.0 ADA THERAPEUTIC TARGET < 7.0 ACTION SUGGESTED > 7.0 Performed By: #### C ALCULI #### [facility] [address] [place] [address] [address] Michael Murillo Glucose [Mass/Vol] 123 mg/dL Normal [facility] Comment on above: Performed By: #### C ALCULI #### [facility] [address] [place] [address] [address] Michael Murillo HbA1c (Bld) [Mass fraction] 5.9 % Normal 4.5-6.[address] [facility] Comment on above: Performed By: #### C ALCULI #### [facility] [address] [place] [address] Dr. Michael Murillo IRONon 07-21-2022 Iron [Mass/Vol] 110.0 ug/dL Normal 50.0-170.0 [facility] Comment on above: Performed By: #### C ALCULI #### [facility] [address] [place] [address] Dr. Michael Murillo LIPID PROFILEon 07-21-2022 CHOL-HDL RATIO NORM SEE BELOW Normal [facility] Comment on above: Result Comment: 3.3 - 4.4 LOW RISK 4.4 - 7.1 AVERAGE RISK 7.1 - 11.0 MODERATE RISK >11.0 HIGH RISK Performed By: #### T 7, TSH, LIPID, CMP #### [facility] [address] [place] [address] Dr. Michael Murillo Cholesterol [Mass/Vol] 257 mg/dL Critically high <=[address] [facility] Comment on above: Performed By: #### T 7, TSH, LIPID, CMP #### [facility] [address] [address] [address] Michael Murillo Cholesterol in HDL [Mass/Vol] 89 mg/dL Critically high 40-[address] [facility] Comment on above: Performed By: #### T 7, TSH, LIPID, CMP #### [facility] [address] [address] [address] Michael Murillo Cholesterol in LDL [Mass/Vol] 156.4 mg/dL Normal [facility] Comment on above: Performed By: #### T 7, TSH, LIPID, CMP #### [facility] [address] [address] [address] Michael Murillo Cholesterol.total/Cho lesterol in HDL [Mass ratio] 2.9 {ratio} Normal [facility] Comment on above: Performed By: #### T 7, TSH, LIPID, CMP #### [facility] [address] [address] [address] Michael Murillo HDL NORMAL > or = 60 mg/dl - LO W CARDIOVASCULAR RISK <40 mg/dl - HIGH CARDIOVASCULAR RISK Normal [facility] Comment on above: Performed By: #### T 7, TSH, LIPID, CMP #### [facility] [address] [address] [address] Michael Murillo LDL CALC NORMAL SEE BELOW Normal [facility] Comment on above: Result Comment: <100 mg/dl OPTIMAL 100 - 129 mg/dl NEAR OR ABOVE OPTIMAL 130 - 159 mg/dl BORDERLINE HIGH 160 - 189 mg/dl HIGH >190 mg/dl VERY HIGH Performed By: #### T 7, TSH, LIPID, CMP #### [facility] [address] [address] [address] Michael Murillo Triglyceride [Mass/Vol] 58 mg/dL Normal <=150 [facility] Comment on above: Performed By: #### T 7, TSH, LIPID, CMP #### [facility] [address] [address] [address] Michael Murillo VLDL CALC 11.6 mg/dL Normal [facility] Comment on above: Performed By: #### T 7, TSH, LIPID, CMP #### [facility] [address] [place] [address] Dr. Michael Murillo PROF 14(COMP METB)on 023 Albumin [Mass/Vol] 3.8 g/dL Normal 3.4-5.0 [facility] Comment on above: Performed By: #### T 7, TSH, LIPID, CMP #### [facility] [address] [address] [address] Michael Murillo Albumin/Globulin [Mass ratio] 1.2 {ratio} Normal [facility] Comment on above: Performed By: #### T 7, TSH, LIPID, CMP #### [facility] [address] [place] [address] Dr. Michael Murillo ALP [Catalytic activity/Vol] 103 U/L Normal 46-[address] [facility] Comment on above: Performed By: #### T 7, TSH, LIPID, CMP #### [facility] [address] [address] [address] Michael Murillo ALT [Catalytic activity/Vol] 38 U/L Normal 14-[address] [facility] Comment on above: Performed By: #### T 7, TSH, LIPID, CMP #### [facility] [address] [place] [address] Dr. Michael Murillo Anion gap [Moles/Vol] 10.1 mmol/L Normal [facility] Comment on above: Performed By: #### T 7, TSH, LIPID, CMP #### [facility] [address] [place] [address] Dr. Michael Murillo AST [Catalytic activity/Vol] 27 U/L Normal 15-[address] [facility] Comment on above: Performed By: #### T 7, TSH, LIPID, CMP #### [facility] [address] [address] [address] Michael Murillo Bilirubin [Mass/Vol] 0.4 mg/dL Normal 0.2-1.[address] [facility] Comment on above: Performed By: #### T 7, TSH, LIPID, CMP #### [facility] [address] [place] [address] Dr. Michael Mruillo Calcium [Mass/Vol] 8.9 mg/dL Normal 8.5-10.1 [facility] Comment on above: Performed By: #### T 7, TSH, LIPID, CMP #### [facility] [address] [place] [address] Dr. Michael Murillo Chloride [Moles/Vol] 107 mmol/L Normal 98-107 [facility] Comment on above: Performed By: #### T 7, TSH, LIPID, CMP #### [facility] [address] [address] [address] Michael Murillo CO2 [Moles/Vol] 29.8 mmol/L Normal 21.0-32.0 [facility] Comment on above: Performed By: #### T 7, TSH, LIPID, CMP #### [facility] [address] [address] [address] Michael Murillo Creatinine [Mass/Vol] 0.86 mg/dL Normal 0.55-1.[address] [facility] Comment on above: Performed By: #### T 7, TSH, LIPID, CMP #### [facility] [address] [place] [address] Dr. Michael Murillo EGFR-AF FINNISH >60 Normal >=60 [facility] Comment on above: Performed By: #### T 7, TSH, LIPID, CMP #### [facility] [address] [place] [address] Dr. Michael Murillo EGFR-NON AF FINNISH >60 Normal >=[address] [facility] Comment on above: Performed By: #### T 7, TSH, LIPID, CMP #### [facility] [address] [place] [address] Dr. Michael Murillo Globulin (S) [Mass/Vol] 3.2 g/dL Normal [facility] Comment on above: Performed By: #### T 7, TSH, LIPID, CMP #### [facility] [address] [place] [address] Dr. Michael Murillo Glucose [Mass/Vol] 96 mg/dL Normal 74-106 [facility] Comment on above: Performed By: #### T 7, TSH, LIPID, CMP #### [facility] [address] [place] [address] Dr. Michael Murillo Potassium [Moles/Vol] 3.9 mmol/L Normal 3.5-5.[address] [facility] Comment on above: Performed By: #### T 7, TSH, LIPID, CMP #### [facility] [address] [place] [address] Dr. Michael Murillo Protein [Mass/Vol] 7.0 g/dL Normal 6.4-8.2 [facility] Comment on above: Performed By: #### T 7, TSH, LIPID, CMP #### [facility] [address] [place] [address] Dr. Michael Murillo Sodium [Moles/Vol] 143 mmol/L Normal 136-145 [facility] Comment on above: Performed By: #### T 7, TSH, LIPID, CMP #### [facility] [address] [place] [address] Dr. Michael Murillo Urea nitrogen [Mass/Vol] 17.0 mg/dL Normal 7.0-18.[address] [facility] Comment on above: Performed By: #### T 7, TSH, LIPID, CMP #### [facility] [address] [place] [address] Dr. Michael Murillo Urea nitrogen/Creatinine [Mass ratio] 19.8 mg/mg Normal [facility] Comment on above: Performed By: #### T 7, TSH, LIPID, CMP #### [facility] [address] [place] [address] Dr. Michael Murillo TSHon 07-21-2022 TSH 2.426 uIU/mL Normal 0.358-3.740 [facility] Comment on above: Performed By: #### T 7, TSH, LIPID, CMP #### [facility] [address] [place] [address] Dr. Michael Murillo VITAMIN D 25 OHon 07-21-2022 VIT D 25-OH 62.1 ng/mL Normal [facility] Comment on above: Performed By: #### C ALCULI #### [facility] [address] [place] [address] Dr. Michael Murillo VIT D RANGES SEE BELOW Normal [facility] Comment on above: Result Comment: <20 ng/mL Vit D deficient 20 - <30 ng/mL Vit D insufficient 30 - 100 ng/mL Vit D sufficient >100 ng/mL Potential Toxicity Performed By: #### C ALCULI #### [facility] [address] [place] [address] Dr. Michael Murillo MRI FOOT LT WO [...] by: NADEGE GANNON Date: 2022-07-20 16:[address] [facility] NM BONE IMAGE 3 PHASEon 06-15 [place] BONE IMAGE 3 PHASE EXAMINATION: [place] GERTRUDE [place] IMAGE 3 PHASE HISTORY: Pain [...] by: BENI ORTIZ Date: 2022-07-10 13:[address] [facility] Patient Correspondenceon Patient Correspondence [id number] :127 Normal [facility] ED Note-Physicianon 06-27-19 23 ED Note-Physician [id number] D:127 Normal [facility] Lab Reportson 06-27-2022 Lab Reports [id number] D:127 Normal [facility] Operative Reporton 3 Operative Report [id number] D:127 Normal [facility] CALCULI, URINARYon 3 2,[address] [facility] Comment on above: Performed By: #### C ALCULI #### [facility] [address] [place] [address] Dr. Michael Murillo Ammonium Acid Urate Normal [facility] Comment on above: Performed By: #### C ALCULI #### [facility] [address] [place] [address] Dr. Michael Murillo Bilirubin Ql (U) Normal [facility] Comment on above: Performed By: #### C ALCULI #### [facility] [address] [place] [address] Dr. Michael Murillo Ca Oxalate Dihydrate 20 % Normal [facility] Comment on above: Performed By: #### C ALCULI #### [facility] [address] [address] [address] Michael Murillo CaHPO4 (Brushite) [facility] Comment on above: Performed By: #### C ALCULI #### [facility] [address] [place] [address] Dr. Michael Murillo Calcium Bilirubinate [facility] Comment on above: Performed By: #### C ALCULI #### [facility] [address] [place] [address] Dr. Michael Murillo Calcium Carbonate Normal [facility] Comment on above: Performed By: #### C ALCULI #### [facility] [address] [address] [address] Michael Murillo Calcium Oxalate Monohydrate 70 % Normal [facility] Comment on above: Performed By: #### C ALCULI #### [facility] [address] [address] [address] Michael Murillo Calcium Palmitate Normal [facility] Comment on above: Performed By: #### C ALCULI #### [facility] [address] [address] [address] Michael Murillo Calcium Phosphate Normal [facility] Comment on above: Performed By: #### C ALCULI #### [facility] [address] [address] [address] Michael Murillo Calcium Stearate [facility] Comment on above: Performed By: #### C ALCULI #### [facility] [address] [place] [address] Dr. Michael Murillo Carbonate Apatite Normal [facility] Comment on above: Performed By: #### C ALCULI #### [facility] [address] [address] [address] Michael Murillo Cellular Material Normal [facility] Comment on above: Performed By: #### C ALCULI #### [facility] [address] [address] [address] Michael Murillo Cholesterol [facility] Comment on above: Performed By: #### C ALCULI #### [facility] [address] [address] [address] Michael Murillo Color (U) Brown Normal [facility] Comment on above: Performed By: #### C ALCULI #### [facility] [address] [address] [address] Michael Murillo Comment Comment [facility] Comment on above: Result Comment: Calc ium phosphate (hydroxyl form) includes hydroxyapatite, amorphous calcium phosphate, and whitlockite. Hydroxyapatite is the most common of the calcium phosphate salts found in human kidney stones. Performed By: #### C ALCULI #### [facility] [address] [address] [address] Michael Murillo Comment Normal [facility] Comment on above: Performed By: #### C ALCULI #### [facility] [address] [address] [address] Michael Murillo Comment: Comment Normal [facility] Comment on above: Result Comment: Malissa feldman questions regarding Calculi Analysis contact [facility] at: [phone]. Performed By: #### C ALCULI #### [facility] [address] [place] [address] Dr. Michael Murillo Composition Comment Normal [facility] Comment on above: Result Comment: Perc entage (Represents the % composition) Performed By: #### C ALCULI #### [facility] [address] [place] [address] Dr. Michael Murillo Cystine Normal [facility] Comment on above: Performed By: #### C ALCULI #### [facility] [address] [place] [address] Dr. Michael Murillo Disclaimer: Comment Normal [facility] Comment on above: Result Comment: This test was developed and its performance characteristics determined by [facility]. It has not been cleared or approved by the Food and Drug Administration. Performed By: #### C ALCULI #### [facility] [address] [place] [address] Dr. Michael Murillo Dried Blood Normal [facility] Comment on above: Performed By: #### C ALCULI #### [facility] [address] [place] [address] Dr. Michael Murillo Drug or Metabolite Normal [facility] Comment on above: Performed By: #### C ALCULI #### [facility] [address] [place] [address] Dr. Michael Murillo Hydroxyapatite 10 % Normal [facility] Comment on above: Performed By: #### C ALCULI #### [facility] [address] [place] [address] Dr. Michael Murillo Mg NH4 PO4 (Struvite) Normal [facility] Comment on above: Performed By: #### C ALCULI #### [facility] [address] [place] [address] Dr. Michael Murillo [facility]PO4 ([facility] Normal [facility] Comment on above: Performed By: #### C ALCULI #### [facility] [address] [address] [address] Michael Murillo Other component(s) Normal [facility] Comment on above: Performed By: #### C ALCULI #### [facility] [address] [address] [address] Michael Murillo PDF . Normal [facility] Comment on above: Performed By: #### C ALCULI #### [facility] [address] [address] [address] Michael Murillo Photo Comment [facility] Comment on above: Result Comment: Phot ograph will follow under a separate cover Performed By: #### C ALCULI #### [facility] [address] [address] [address] Michael Murillo Please note: Comment Normal [facility] Comment on above: Result Comment: Calc antonino report will follow via computer, mail or well drill operator rotary drill delivery. Performed By: #### C ALCULI #### [facility] [address] [address] [address] Michael Murillo Size 3x[address] [facility] Comment on above: Result Comment: Mult iple pieces received. Dimensions of the largest piece reported. Performed By: #### C ALCULI #### [facility] [address] [address] [address] Michael Murillo Sodium Acid Urate Normal [facility] Comment on above: Performed By: #### C ALCULI #### [facility] [address] [address] [address] Michael Murillo Source Comment [facility] Comment on above: Result Comment: Left Kidney Performed By: #### C ALCULI #### [facility] [address] [address] [address] Michael Murillo Triamterene [facility] Comment on above: Performed By: #### C ALCULI #### [facility] [address] [address] [address] Michael Murillo Uric Acid [facility] Comment on above: Performed By: #### C ALCULI #### [facility] [address] [address] [address] Michael Murillo Uric Acid Dihydrate Normal [facility] Comment on above: Performed By: #### C ALCULI #### [facility] [address] [address] [address] Michael Murillo Weight [address] [facility] Comment on above: Performed By: #### C ALCULI #### [facility] [address] [address] [address] Michael Murillo Xanthine Normal [facility] Comment on above: Performed By: #### C ALCULI #### [facility] [address] [address] [address] Michael Murillo Lab Reportson 06-26-2022 Lab Reports [id number] D:127 Normal [facility] CT ABD/PELVIS WO CONon 06-25 CT [...] FRANCK GARBER Date: 2022-06-24 22:07 Normal [facility] CARDIAC LUDMILA ADMITon 023 CK [Catalytic activity/Vol] 111 U/L Normal 26-[address] [facility] Comment on above: Performed By: #### C MADM, CMP #### [facility] [address] [place] [address] Dr. Michael Murillo CK.MB [Mass/Vol] 0.90 ng/mL Normal <=3.60 [facility] Comment on above: Performed By: #### C MADM, CMP #### [facility] [address] [place] [address] Dr. Michael Murillo HSTROP 6.6 pg/mL Normal 4.0-51.3 [facility] Comment on above: Result Comment: CUT- OFF POINTS HAVE BEEN ESTABLISHED BASED ON THE FOURTH UNIVERSAL DEFINITIONS OF MYOCARDIAL INFARCTION. THE UPPER REFERENCE LIMIT (URL) OF TROPONIN, DEFINED THE 99TH PERCENTILE OF cTnI DISTRIBUTION IN A REFERENCE POPULATION, HAS BEEN CONFIRMED THE DECISION THRESHOLD FOR [place] DIAGNOSIS. Performed By: #### C PAWELM, CMP #### [facility] [address] [place] [address] Dr. Michael Murillo KEARA 42 ng/mL Normal 9-[address] [facility] Comment on above: Performed By: #### C PAWELM, CMP #### [facility] [address] [place] [address] Dr. Michael Murillo CBC AUTO DIFFon 06-24-2022 BASO # 0.0 103/ul Normal 0.0-0.[address] [facility] Comment on above: Performed By: #### C BC #### [facility] [address] [place] [address] Dr. Michael Murillo Basophils/100 WBC (Bld) 0.5 % Normal 0.2-2.[address] [facility] Comment on above: Performed By: #### C BC #### [facility] [address] [place] [address] Dr. Michael Murillo EO # 0.2 103/ul Normal 0.0-0.[address] [facility] Comment on above: Performed By: #### C BC #### [facility] [address] [place] [address] Dr. Michael Murillo Eosinophils/100 WBC (Bld) 2.0 % Normal 0.9-7.[address] [facility] Comment on above: Performed By: #### C BC #### [facility] [address] [place] [address] Dr. Michael Murillo Erythrocyte distribution width (RBC) [Ratio] 11.9 % Normal 11.0-15.[address] [facility] Comment on above: Performed By: #### C BC #### [facility] [address] [place] [address] Dr. Michael Murillo Hematocrit (Bld) [Volume fraction] 40.8 % Normal 36.0-48.[address] [facility] Comment on above: Performed By: #### C BC #### [facility] [address] [place] [address] Dr. Michael Murillo Hemoglobin (Bld) [Mass/Vol] 13.7 g/dL Normal 12.0-16.[address] [facility] Comment on above: Performed By: #### C BC #### [facility] [address] [place] [address] Dr. Michael Murillo IG # 0.02 10e3/ul Normal 0.00-0.[address] [facility] Comment on above: Performed By: #### C BC #### [facility] [address] [place] [address] Dr. Michael Murillo IG % 0.2 % Normal 0.0-0.[address] [facility] Comment on above: Performed By: #### C BC #### [facility] [address] [place] [address] Dr. Michael Murillo LYMPH # 2.0 103/ul Normal 1.2-3.[address] [facility] Comment on above: Performed By: #### C BC #### [facility] [address] [place] [address] Dr. Michael Murillo Lymphocytes/100 WBC (Bld) 24.3 % Normal 20.5-60.[address] [facility] Comment on above: Performed By: #### C BC #### [facility] [address] [place] [address] Dr. Michael Murillo MANUAL DIFF REQ NO Normal [facility] Comment on above: Performed By: #### C BC #### [facility] [address] [address] [address] Michael Murillo MCH (RBC) [Entitic mass] 30.2 pg Normal 26.7-34.[address] [facility] Comment on above: Performed By: #### C BC #### [facility] [address] [address] [address] Michael Murillo MCHC (RBC) [Mass/Vol] 33.6 g/dL Normal 29.9-35.[address] [facility] Comment on above: Performed By: #### C BC #### [facility] [address] [address] [address] Michael Murillo MCV (RBC) [Entitic vol] 89.9 fL Normal 81.0-99.[address] [facility] Comment on above: Performed By: #### C BC #### [facility] [address] [place] [address] Dr. Michael Murillo MONO # 1.0 103/ul Critically high 0.3-0.8 [facility] Comment on above: Performed By: #### C BC #### [facility] [address] [place] [address] Dr. Michael Murillo Monocytes/100 WBC (Bld) 11.9 % Normal 1.7-12.[address] [facility] Comment on above: Performed By: #### C BC #### [facility] [address] [address] [address] Michael Murillo NEUT # 5.1 103/ul Normal 1.4-6.5 [facility] Comment on above: Performed By: #### C BC #### [facility] [address] [place] [address] Dr. Michael Murillo Neutrophils/100 WBC (Bld) 61.1 % Normal 43.0-75.0 [facility] Comment on above: Performed By: #### C BC #### [facility] [address] [place] [address] Dr. Michael Murillo Platelet mean volume (Bld) [Entitic vol] 9.8 fL Normal 9.5-13.5 [facility] Comment on above: Performed By: #### C BC #### [facility] [address] [place] [address] Dr. Michael Murillo PLT 250 103/ul Normal 150-[address] [facility] Comment on above: Performed By: #### C BC #### [facility] [address] [place] [address] Dr. Michael Murillo RBC 4.54 106/ul Normal 4.20-5.[address] [facility] Comment on above: Performed By: #### C BC #### [facility] [address] [place] [address] Dr. Michael Murillo WBC 8.4 103/ul Normal 4.0-11.[address] [facility] Comment on above: Performed By: #### C BC #### [facility] [address] [place] [address] Dr. Michael Murillo ER URINE PROFILEon 3 Bilirubin Ql (U) Negative Normal NEGATIVE [facility] Comment on above: Performed By: #### C ALCULI #### [facility] [address] [place] [address] Dr. Michael Murillo Clarity (U) CLEAR Normal CLEAR [facility] Comment on above: Performed By: #### C ALCULI #### [facility] [address] [place] [address] Dr. Michael Murillo Color (U) YELLOW Normal YELLOW [facility] Comment on above: Performed By: #### C ALCULI #### [facility] [address] [place] [address] Dr. Michael ALFONSO A micrscopic examination will be performed if indicated. Normal [facility] Comment on above: Performed By: #### C ALCULI #### [facility] [address] [place] [address] Dr. Michael Murillo Glucose Ql (U) Negative Normal NEGATIVE [facility] Comment on above: Performed By: #### C ALCULI #### [facility] [address] [place] [address] Dr. Michael Murillo Hemoglobin Ql (U) LARGE Abnormal NEGATIVE [facility] Comment on above: Performed By: #### C ALCULI #### [facility] [address] [place], [place] [address] Dr. Michael Murillo Ketones Ql (U) Negative Normal NEGATIVE [facility] Comment on above: Performed By: #### C ALCULI #### [facility] [address] [place] [address] Dr. Michael Murillo LEUKOCYTES Negative Normal NEGATIVE [facility] Comment on above: Performed By: #### C ALCULI #### [facility] [address] [place] [address] Dr. Michael Murillo Nitrite Ql (U) Negative Normal NEGATIVE [facility] Comment on above: Performed By: #### C ALCULI #### [facility] [address] [place] [address] Dr. Michael Murillo pH (U) 8.0 [pH] Normal 5-[address] [facility] Comment on above: Performed By: #### C ALCULI #### [facility] [address] [place] [address] Dr. Michael Murillo Protein (U) [Mass/Vol] 100 mg/dL Abnormal NEGATIVE/ TRACE [facility] Comment on above: Performed By: #### C ALCULI #### [facility] [address] [place] [address] Dr. Michael Murillo SPEC GRAVITY 1.015 Normal 1.005-<=1.025 [facility] Comment on above: Performed By: #### C ALCULI #### [facility] [address] [place] [address] Dr. Michael Murillo UR MICRO IND INDICATED Normal [facility] Comment on above: Performed By: #### C ALCULI #### [facility] [address] [place] [address] Dr. Michael Murillo Urobilinogen Qn (U) 0.2 {Kunal'U}/dL Normal 0.2 - 1. [address] [facility] Comment on above: Performed By: #### C ALCULI #### [facility] [address] [place] [address] Dr. Michael Murillo PROF 14(COMP METB)on 023 Albumin [Mass/Vol] 4.0 g/dL Normal 3.4-5.0 [facility] Comment on above: Performed By: #### C CHRISTOS, CMP #### [facility] [address] [address] [address] Michael Murillo Albumin/Globulin [Mass ratio] 1.1 {ratio} Normal [facility] Comment on above: Performed By: #### C CHRISTOS, CMP #### [facility] [address] [address] [address] Michael Murillo ALP [Catalytic activity/Vol] 104 U/L Normal 46-[address] [facility] Comment on above: Performed By: #### C CHRISTOS, CMP #### [facility] [address] [address] [address] Michael Murillo ALT [Catalytic activity/Vol] 30 U/L Normal 14-[address] [facility] Comment on above: Performed By: #### C CHRISTOS, CMP #### [facility] [address] [place] [address] Dr. Michael Murillo Anion gap [Moles/Vol] 13.0 mmol/L Normal [facility] Comment on above: Performed By: #### C CHRISTOS, CMP #### [facility] [address] [place] [address] Dr. Michael Murillo AST [Catalytic activity/Vol] 23 U/L Normal 15-[address] [facility] Comment on above: Performed By: #### C CHRISTOS, CMP #### [facility] [address] [address] [address] Michael Murillo Bilirubin [Mass/Vol] 0.3 mg/dL Normal 0.2-1.[address] [facility] Comment on above: Performed By: #### C CHRISTOS, CMP #### [facility] [address] [address] [address] Michael Murillo Calcium [Mass/Vol] 9.0 mg/dL Normal 8.5-10.1 [facility] Comment on above: Performed By: #### C CHRISTOS, CMP #### [facility] [address] [address] [address] Michael Murillo Chloride [Moles/Vol] 101 mmol/L Normal 98-107 [facility] Comment on above: Performed By: #### C CHRISTOS, CMP #### [facility] [address] [address] [address] Michael Murillo CO2 [Moles/Vol] 29.2 mmol/L Normal 21.0-32.0 [facility] Comment on above: Performed By: #### C CHRISTOS, CMP #### [facility] [address] [address] [address] Michael Murillo Creatinine [Mass/Vol] 0.97 mg/dL Normal 0.55-1.02 [facility] Comment on above: Performed By: #### C CHRISTOS, CMP #### [facility] [address] [address] [address] Michael Murillo EGFR-AF FINNISH >60 Normal >=60 [facility] Comment on above: Performed By: #### C CHRISTOS, CMP #### [facility] [address] [place] [address] Dr. Michael Murillo EGFR-NON AF FINNISH 59 mL/min/1.73m2 Critically low >=60 [facility] Comment on above: Performed By: #### C CHRISTOS, CMP #### [facility] [address] [place] [address] Dr. Michael Murillo Globulin (S) [Mass/Vol] 3.5 g/dL Normal [facility] Comment on above: Performed By: #### C CHRISTOS, CMP #### [facility] [address] [place] [address] Dr. Michael Murillo Glucose [Mass/Vol] 106 mg/dL Normal 74-106 [facility] Comment on above: Performed By: #### C CHRISTOS, CMP #### [facility] [address] [address] [address] Michael Murillo Potassium [Moles/Vol] 4.2 mmol/L Normal 3.5-5.[address] [facility] Comment on above: Performed By: #### C CHRISTSO, CMP #### [facility] [address] [place] [address] Dr. Michael Murillo Protein [Mass/Vol] 7.5 g/dL Normal 6.4-8.2 [facility] Comment on above: Performed By: #### C PAWELM, CMP #### [facility] [address] [place] [address] Dr. Michael Murillo Sodium [Moles/Vol] 139 mmol/L Normal 136-145 [facility] Comment on above: Performed By: #### C PAWELM, CMP #### [facility] [address] [place] [address] Dr. Michael Murillo Urea nitrogen [Mass/Vol] 19.0 mg/dL Critically high 7.0-18.[address] [facility] Comment on above: Performed By: #### C PAWELM, CMP #### [facility] [address] [place] [address] Dr. Michael Murillo Urea nitrogen/Creatinine [Mass ratio] 19.6 mg/mg Normal [facility] Comment on above: Performed By: #### C PAWELM, CMP #### [facility] [address] [place] [address] Dr. Michael Murillo URINE MICROSCOPIC ONLYon BACTERIA NONE SEEN Normal NONE SEEN [facility] Comment on above: Performed By: #### C ALCULI #### [facility] [address] [place] [address] Dr. Michael Murillo Bacteria identified Cx Nom (U) NOT INDICATED Normal [facility] Comment on above: Performed By: #### C ALCULI #### [facility] [address] [place] [address] Dr. Michael Murillo CAST NONE SEEN Normal NONE SEEN [facility] Comment on above: Performed By: #### C ALCULI #### [facility] [address] [place] [address] Dr. Michael Murillo Crystals LM Nom (Urine sed) NONE SEEN Normal NONE SEEN [facility] Comment on above: Performed By: #### C ALCULI #### [facility] [address] [place] [address] Dr. Michael Murillo Epithelial cells LM Ql (Urine sed) RARE Normal NONE SEEN /RARE [facility] Comment on above: Performed By: #### C ALCULI #### [facility] [address] [place] [address] Dr. Michael Murillo MUCOUS NONE SEEN Normal NONE SEEN [facility] Comment on above: Performed By: #### C ALCULI #### [facility] [address] [place] [address] Dr. Michael Murillo RBC (U) [#/Vol] /uL Abnormal 0-2 [facility] Comment on above: Performed By: #### C ALCULI #### [facility] [address] [place] [address] Dr. Michael Murillo WBC 0-2 Abnormal NONE SEEN [facility] Comment on above: Performed By: #### C ALCULI #### [facility] [address] [place] [address] Dr. Michael Murillo CBC AUTO DIFFon 06-19-2022 BASO # 0.1 103/ul Normal 0.0-0.[address] [facility] Comment on above: Performed By: #### C ALCULI #### [facility] [address] [place] [address] Dr. Michael Murillo Basophils/100 WBC (Bld) 0.8 % Normal 0.2-2.[address] [facility] Comment on above: Performed By: #### C ALCULI #### [facility] [address] [place] [address] Dr. Michael Murillo EO # 0.1 103/ul Normal 0.0-0.[address] [facility] Comment on above: Performed By: #### C ALCULI #### [facility] [address] [place] [address] Dr. Michael Murillo Eosinophils/100 WBC (Bld) 1.4 % Normal 0.9-7.0 [facility] Comment on above: Performed By: #### C ALCULI #### [facility] [address] [place] [address] Dr. Michael Murillo Erythrocyte distribution width (RBC) [Ratio] 12.1 % Normal 11.0-15.[address] [facility] Comment on above: Performed By: #### C ALCULI #### [facility] [address] [address] [address] Michael Murillo Hematocrit (Bld) [Volume fraction] 40.5 % Normal 36.0-48.[address] [facility] Comment on above: Performed By: #### C ALCULI #### [facility] [address] [address] [address] Michael Murillo Hemoglobin (Bld) [Mass/Vol] 13.3 g/dL Normal 12.0-16.[address] [facility] Comment on above: Performed By: #### C ALCULI #### [facility] [address] [place] [address] Dr. Michael Murillo IG # 0.02 10e3/ul Normal 0.00-0.[address] [facility] Comment on above: Performed By: #### C ALCULI #### [facility] [address] [place] [address] Dr. Michael Murillo IG % 0.3 % Normal 0.0-0.[address] [facility] Comment on above: Performed By: #### C ALCULI #### [facility] [address] [place] [address] Dr. Michael Murillo LYMPH # 1.7 103/ul Normal 1.2-3.[address] [facility] Comment on above: Performed By: #### C ALCULI #### [facility] [address] [place] [address] Dr. Michael Murillo Lymphocytes/100 WBC (Bld) 25.4 % Normal 20.5-60.[address] [facility] Comment on above: Performed By: #### C ALCULI #### [facility] [address] [address] [address] Michael Murillo MANUAL DIFF REQ NO Normal [facility] Comment on above: Performed By: #### C ALCULI #### [facility] [address] [place] [address] Dr. Michael Murillo MCH (RBC) [Entitic mass] 30.8 pg Normal 26.7-34.[address] [facility] Comment on above: Performed By: #### C ALCULI #### [facility] [address] [place] [address] Dr. Michael Murillo MCHC (RBC) [Mass/Vol] 32.8 g/dL Normal 29.9-35.[address] [facility] Comment on above: Performed By: #### C ALCULI #### [facility] [address] [place] [address] Dr. Michael Murillo MCV (RBC) [Entitic vol] 93.8 fL Normal 81.0-99.[address] [facility] Comment on above: Performed By: #### C ALCULI #### [facility] [address] [place] [address] Dr. Michael Murillo MONO # 0.7 103/ul Normal 0.3-0.[address] [facility] Comment on above: Performed By: #### C ALCULI #### [facility] [address] [place] [address] Dr. Michael Murillo Monocytes/100 WBC (Bld) 10.4 % Normal 1.7-12.[address] [facility] Comment on above: Performed By: #### C ALCULI #### [facility] [address] [place] [address] Dr. Michael Murillo NEUT # 4.1 103/ul Normal 1.4-6.[address] [facility] Comment on above: Performed By: #### C ALCULI #### [facility] [address] [place] [address] Dr. Michael Murillo Neutrophils/100 WBC (Bld) 61.7 % Normal 43.0-75.0 [facility] Comment on above: Performed By: #### C ALCULI #### [facility] [address] [place] [address] Dr. Michael Murillo Platelet mean volume (Bld) [Entitic vol] 10.0 fL Normal 9.5-13.[address] [facility] Comment on above: Performed By: #### C ALCULI #### [facility] [address] [place] [address] Dr. Michael Murillo PLT 245 103/ul Normal 150-450 [facility] Comment on above: Performed By: #### C ALCULI #### [facility] [address] [place] [address] Dr. Michael Murillo RBC 4.32 106/ul Normal 4.20-5.[address] [facility] Comment on above: Performed By: #### C ALCULI #### [facility] [address] [place] [address] Dr. Michael Murillo WBC 6.7 103/ul Normal 4.0-11.[address] [facility] Comment on above: Performed By: #### C ALCULI #### [facility] [address] [place] [address] Dr. Michael Murillo Formson 06-19-2022 Forms [id number] D:127 Normal [facility] PROF CHEM 8 (BAS METB)on Anion gap [Moles/Vol] 11.9 mmol/L Normal [facility] Comment on above: Performed By: #### C ALCULI #### [facility] [address] [place] [address] Dr. Michael Murillo Calcium [Mass/Vol] 9.1 mg/dL Normal 8.5-10.1 [facility] Comment on above: Performed By: #### C ALCULI #### [facility] [address] [place] [address] Dr. Michael Murillo Chloride [Moles/Vol] 100 mmol/L Normal 98-[address] [facility] Comment on above: Performed By: #### C ALCULI #### [facility] [address] [place] [address] Dr. Michael Murillo CO2 [Moles/Vol] 28.3 mmol/L Normal 21.0-32.0 [facility] Comment on above: Performed By: #### C ALCULI #### [facility] [address] [place] [address] Dr. Michael Murillo Creatinine [Mass/Vol] 0.83 mg/dL Normal 0.55-1.[address] [facility] Comment on above: Performed By: #### C ALCULI #### [facility] [address] [place] [address] Dr. Michael Murillo EGFR-AF FINNISH >60 Normal >=60 [facility] Comment on above: Performed By: #### C ALCULI #### [facility] [address] [place] [address] Dr. Michael Murillo EGFR-NON AF FINNISH >60 Normal >=[address] [facility] Comment on above: Performed By: #### C ALCULI #### [facility] [address] [address] [address] Michael Murillo Glucose [Mass/Vol] 97 mg/dL Normal 74-106 [facility] Comment on above: Performed By: #### C ALCULI #### [facility] [address] [place] [address] Dr. Michael Murillo Potassium [Moles/Vol] 4.2 mmol/L Normal 3.5-5.[address] [facility] Comment on above: Performed By: #### C ALCULI #### [facility] [address] [place] [address] Dr. Michael Murillo Sodium [Moles/Vol] 136 mmol/L Normal 136-145 [facility] Comment on above: Performed By: #### C ALCULI #### [facility] [address] [place] [address] Dr. Michael Murillo Urea nitrogen [Mass/Vol] 18.0 mg/dL Normal 7.0-18.[address] [facility] Comment on above: Performed By: #### C ALCULI #### [facility] [address] [place] [address] Dr. Michael Murillo Urea nitrogen/Creatinine [Mass ratio] 21.7 mg/mg Normal [facility] Comment on above: Performed By: #### C ALCULI #### [facility] [address] [place] [address] Dr. Michael Murillo PROTIMEon 06-19-2022 INR Coag (PPP) [Relative time] {INR} Normal [facility] Comment on above: Performed By: #### C ALCULI #### [facility] [address] [place] [address] Dr. Michael Murillo INR GUIDELINES SEE BELOW Normal [facility] Comment on above: Result Comment: JORGE RED INR: 2.0 - 3.0 CONDITIONS NOT LISTED BELOW 2.5 - 3.5 FOR PROSTHETIC HEART VALVE REPLACEMENT 2.5 - 3.5 RECURRENT THROMBOSIS Performed By: #### C ALCULI #### [facility] [address] [address] [address] Michael Murillo PT Coag (PPP) [Time] 9.8 s Normal 9.0-11.[address] [facility] Comment on above: Performed By: #### C ALCULI #### [facility] [address] [address] [address] Michael Murillo PTTon 06-19-2022 aPTT Coag (Bld) [Time] 28.9 s Normal 22.3-36.[address] [facility] Comment on above: Performed By: #### C ALCULI #### [facility] [address] [address] [address] Michael Murillo Screenson 06-19-2022 Screens [id number] D:127 Normal [facility] Patient Educationon 06-16-19 Patient Education Urology [...] Rhubarb. ? Beets. ? Potato chips and surinamese fries. ? Nuts. ? If you regularly take a diuretic medicine, make sure to eat at least 1?2 fruits or vegetables high in potassium each day. These include: ? Avocado. ? Banana. ? Murray, prune, carrot, or tomato juice. ? Baked [...] salt. Salad dr (more content not included)... [facility] Pre-Certification Formon Pre-Certification Form [id number] D:127 [facility] Urology Office/Clinic Noteon 06-16-2022 Urology Office/Clinic Note [...] 04/2021 shows Lateral renal calculi. KUB at [facility] on 08/22/2021 showed bilateral stones measuring [...] female ([id number] (more content not included)... Normal [facility] Comment on above: Result Comment: Elec [...] by: BENI ORTIZ Date: 2022-05-15 13:[address] [facility] XR KUB 1 VIEWon 03-24-2022 XR [...] by: JUDSON ENGLISH Date: 2022-03-24 06:[address] [facility] Vital Signs Date Time Vital Sign Value Performing Clinician Mily damon 06-05-2023 08:55-0500 Blood Pressure Location KAILASH TOLEDO [facility] 06-05-2023 08:55-0500 Diastolic blood pressure 89 mm[Hg] KAILASH TOLEDO [facility] 06-05-2023 08:55-0500 Heart rate 82 /min KAILASH TOLEDO [facility] 06-05-2023 08:55-0500 Respiratory rate 16 /min KAILASH TOLEDO [facility] 06-05-2023 08:55-0500 Systolic blood pressure 144 mm[Hg] KAILASH TOLEDO [facility] 10-11-2022 09:53-0400 Blood Pressure Location Aubrie Lue [facility] 10-11-2022 09:53-0400 Diastolic blood pressure 78 mm[Hg] Aubrie Lue [facility] 10-11-2022 09:53-0400 Heart rate 68 /min Aubrie Lue [facility] 10-11-2022 09:53-0400 Respiratory rate 16 /min Aubrie Lue [facility] 10-11-2022 09:53-0400 Systolic blood pressure 140 mm[Hg] Aubrie Lue [facility] 06-16-2022 11:43-0500 Diastolic blood pressure 93 mm[Hg] Aubrie Lue [facility] 06-16-2022 11:43-0500 Mean blood pressure 119 mm[Hg] Aubrie Lue [facility] 06-16-2022 11:43-0500 Systolic blood pressure 172 mm[Hg] Aubrie Lue [facility] 06-16-2022 11:13-0500 Blood Pressure Location Aubrie Lue [facility] 06-16-2022 11:13-0500 Diastolic blood pressure 99 mm[Hg] Aubrie Lue [facility] 06-16-2022 11:13-0500 Heart rate 64 /min Aubrie Lue [facility] 06-16-2022 11:13-0500 Systolic blood pressure 166 mm[Hg] Aubrie Lue [facility] 03-24-2022 13:32-0500 Blood Pressure Location Aubrie Lue [facility] 03-24-2022 13:32-0500 Diastolic blood pressure 85 mm[Hg] Aubrie Lue [facility] 03-24-2022 13:32-0500 Heart rate 72 /min Aubrie Lue [facility] 03-24-2022 13:32-0500 Systolic blood pressure 170 mm[Hg] Aubrie Lue [facility] Encounters Encounter Date Encounter Type Care Provider Facility Start: 09-05-2023 ambulatory KAILASH TOLEDO Facili ty:[facility] Start: 06-05-2023 End: 06-06-2023 ambulatory KAILASH Piero FINLEYRY Facility:[facility] Start: 06-05-2023 End: 06-05-2023 Lab Drop [facility] Start: 06-05-2023 End: 06-05-2023 Patient encounter procedure KAILASH Piero FINLEYRY [facility] Start: 10-30-2022 End: 10-31-2022 ambulatory Aubrie Cho Lue Facility:[facility] Start: 10-30-2022 End: 10-30-2022 Patient encounter procedure [facility] Start: 10-25-2022 End: 10-26-2022 ambulatory Aubrie Nolasco Facility:CD:[id number] Start: 10-11-2022 End: 10-12-2022 ambulatory Aubrie Nolasco Facility:[facility] Start: 10-11-2022 End: 10-11-2022 Patient encounter procedure Aubrie Nolasco [facility] Start: 10-10-2022 End: 10-11-2022 ambulatory AUBRIE NOLASCO [...] abnormal findings DR PHILLIP UNGER . [facility] Start: 07-21-2022 End: 07-22-[address] [...] preprocedural cardiovascular examination AUBRIE NOLASCO . [facility] Start: 06-21-2022 Encounter for preprocedural laboratory examination AUBRIE NOLASCO . [facility] Start: 06-21-2022 End: 02-08-2023 ambulatory AUBRIE M LUE . Facility: Start: 06-19-2022 End: 06-20-2022 ambulatory AUBRIE M LUE . Facility:[facility] Start: 06-19-2022 End: 06-20-2022 Encounter for preprocedural laboratory examination AUBRIE NOLASCO . Facility: Start: 06-16-2022 End: 06-17-2022 ambulatory Aubrie M. Lue Facility:[facility] Start: 06-16-2022 End: 06-16-2022 Patient encounter procedure Aubrie Fernandez. [facility] Start: 06-15-2022 ambulatory Aubrie M. Lue Facility:[facility] Start: 05-12-2022 End: 05-13-2022 ambulatory AUBRIE M LUE . Facility: Start: 04-12-2022 End: 04-12-2022 ambulatory AUBRIE M LUE . Facility:[facility] Start: 03-24-2022 End: 03-24-2022 Patient encounter procedure Aubrie Nolasco [facility] Start: 03-23-2022 End: 03-24-2022 ambulatory KAILASH TOLEDO Facility:[facility] Start: 01-17-[address] [facility] Start: 08-09-2021 End: 08-09-2021 Patient encounter procedure Tracy Christian Jr. [facility] Procedures Date Procedure Procedure Detail Performing Clinician [...] Immunizations Immunization Date Immunization Notes Care Provider [facility] 01-12-2023 influenza virus vacc ine, unspecified formulation KAILASH TOLEDO [facility] 02-13-2022 influenza, unspecifi ed formulation Aubrie Nolasco [facility] 03-10-2021 influenza, unspecifi ed formulation Aubriebaltazar Nolasco [facility] 03-09-2021 SARS-CoV-2 (COVID-19 ) mRNA-1273 vaccine Aubrie Nolasco [facility] 06-11-2020 SARS-CoV-2 (COVID-19 ) Ad26 vaccine, recombinant Tracy Christian Jr. [facility] 06-09-2020 SARS-CoV-2 (COVID-19 ) mRNA-1273 vaccine Aubrie Nolasco [facility] 05-21-2020 SARS-CoV-2 (COVID-19 ) Ad26 vaccine, recombinant Tracy Christian Jr. [facility] 05-19-2020 SARS-CoV-2 (COVID-19 ) mRNA-1273 vaccine Aubrie Lue [facility] 05-12-2020 SARS-CoV-2 (COVID-19 ) mRNA-1273 vaccine Aubrie Lue [facility] 02-25-2020 influenza virus vacc ine, unspecified formulation Aubrie Lue [facility] 03-01-2016 tetanus toxoid, redu ann diphtheria toxoid, and acellular pertussis vaccine, adsorbed Aubrie Lue [facility] 05-14-2011 pneumococcal polysaccharide vaccine, 23 valent Aubrie Alfonsoe [facility] Payers Date Payer Category Payer Unknown [id number] 2019 Unknown [id number] 1965 Unknown [id number] 2.16.84 0.1.223047.3.579.2.593 1965 Unknown [id number] 2.16.84 0.1.664398.3.579.2.593 1965 Unknown [id number] 2.16.84 0.1.833360.3.579.2.593 1965 Unknown [id number] 2.16.84 0.1.214462.3.579.2.593 1965 Unknown [id number] 2.16.84 0.1.946650.3.579.2.593 1965 Unknown [id number] 2.16.84 0.1.854172.3.579.2.593 1965 Unknown [id number] 2.16.84 0.1.373569.3.579.2.593 1963 Unknown [id number] 2.16.84 0.1.812181.3.579.2.593 1965 Unknown [id number] 2.16.84 0.1.771170.3.579.2.593 1963 Unknown [id number] 2.16.84 0.1.796796.3.579.2.593 1965 Unknown [id number] 2.16.84 0.1.642801.3.579.2.593 1963 Unknown [id number] 2.16.84 0.1.046619.3.579.2.593 1963 Unknown [id number] 2.16.84 0.1.320267.3.579.2.593 1963 Unknown [id number] 2.16.84 0.1.333767.3.579.2.593 1963 Unknown [id number] 2.16.84 0.1.034464.3.579.2.593 1965 Unknown [id number] 2.16.84 0.1.856957.3.579.2.593 1965 Unknown [id number] 2.16.8 40.1.253471.3.579.2.727 1965 Unknown [id number] 2.16.8 40.1.660106.3.579.2.727 1965 Unknown [id number] 2.16.8 40.1.156752.3.579.2.727 1965 Unknown [id number] 2.16.8 40.1.440636.3.579.2.727 1965 Unknown [id number] 2.16.8 40.1.853220.3.579.2.727 1965 Unknown [id number] 2.16.8 40.1.662744.3.579.2.727 1965 Unknown [id number] 2.16.8 40.1.638110.3.579.2.727 1965 Unknown [id number] 2.16.8 40.1.647727.3.579.2.727 1959 Unknown [id number] 1961 Unknown [id number] Unknown Social History Date Type Detail Facility Start: 01-28-2021 End: 10-11-2022 Tobacco smoking status Never smoked tobacco (finding) [facility] Tobacco smoking status Never [facility] Sex Assigned At Female [facility] Functional Status Date Assessment Result Facility 06-05-2023 Functional Status N/A [facility] 10-30-2022 Functional Status N/A [facility] 10-11-2022 Functional Status N/A [facility] 06-16-2022 Functional Status N/A [facility] 03-24-2022 Functional Status N/A [facility] Clinical Notes 08-09-2021 to 06-05-2023 Note Date & Type Note Facility 06-05-2023 Evaluation + Plan note Diagnostic Tests PendingUrine Culture 06/05/23 [facility] 06-[facility]2023 Hospital Discharg e instructions Patient Education 06/05/2023 09:29:56 Flank Pain, Adult, Gqje-pu-Lbxz Flank Pain, Adult Flank pain is pain [...] Rest as told by your doctor. Take kkso-bqd-wlhucti and prescription medicines only as told by [...] provider. Document Revised: 07/11/2021 Document Reviewed: 07/11/2021 [employer] Patient Education 2022 [employer]. Follow Up Care 05/30/2023 14:24:53 With:KAILASH TOLEDO PA-C, URL Address: [address] [place] [address] When: Unknown [facility] 10-30-2022 Evaluation + Plan note Extrac mike from: Title:- Clinic HOPD Note Author:Aubrie Nolasco MD Date:10/30/22 Impression and Plan Assessment and Plan: Diagnosis: Intrinsic sphincter deficiency (ISD) (DCJ19-UX N36.42, Discharge, Medical), Mixed incontinence (GWJ68-TA N39.46, Working, Medical), Kidney stone (DAP10-YI N20.0, Discharge, Medical). 57 year old female [...] dietary modifications -Follow-up stone analysis results from [facility] -Patient has Litholink kit at home. [...] and procedures in caring for the patient. [facility]06-19-2023 Note [id number]:[id number] [facility] 10-30-2022 NoteCystoscopy with Stent Removal ? Voiding [...] if you have a fever over 100 degrees.[facility] 10-30-2022 Hospital Discharge instructions Patient Education [...] Up Care 10/27/2022 11:14:28 With:Aubrie Nolasco Address: [address] [place] [address]- [phone] Business (1) [facility] Bray[address] Alan, [address] [address] [phone] Business (1) When: Unknown Comments:Office will schedule Bulkamid and follow up renal US in 6 wks [facility]05[facility]31[facility]2023 Hospital Discharge instructions Patient Education 10/11/2022 [...] nerve stimulation). ?For women, using a medical insurance coding specialist to prevent urine leaks. This is a [...] right after experiencing incontinence. General instructions Take nwyx-czn-jcavgaw and prescription medicines only as told by [...] important. Where to find more information National [place] of Diabetes and Digestive and Kidney Diseases: www.niddk.nih.gov [employer]: www.urologyhealth.org Contact a health care [...] provider. Document Revised: 12/03/2020 Document Reviewed: 12/03/2020 [employer] Patient Education 2022 [employer]. Follow Up Care 06/26/2022 12:58:55 With:Gaurav MADRID, Aubrie Cho URL, [facility] Address: [address], [place] [phone] When: Unknown Comments:sched rt uretero w/ possible stent [facility] 05-31-2023 NotePROCEDURE: XR KUB 1 VIEW DATE: [...] Electronically authenticated by: CLARISSA VILLALTA Date: 2022-10-11 07:26[facility]03-22-2023 NotePROCEDURE: XR ANKLE LT MIN 3 [...] authenticated by: BENI ORTIZ Date: 2022-08-02 11:20[id number] NotePROCEDURE: XR ANKLE LT MIN 3 V [...] Electronically authenticated by: JUDSON ENGLISH Date: 2022-07-27 16:35[facility]02-03-2023 Hospital Discharge instructions Patient Education 06/16/2022 [...] include: ?Spinach. ?Rhubarb. ?Beets. ?Potato chips and surinamese fries. ?Nuts. If you regularly take a diuretic medicine, make sure to eat at least 1 2 fruits or vegetables high in potassium each day. These include: ?Avocado. ?Banana. ?Murray, prune, carrot, or tomato juice. ?Baked potato. [...] Casseroles. Pizza. Lasagna. Frozen meals. Potato chips. Frisian fries. Summary You can reduce your risk [...] 08/25/2011 Document Revised: 08/20/2019 Document Reviewed: 04/10/2017 [employer] Patient Education 2019 [employer]. Follow Up Care 06/15/2022 09:49:16 With:Gaurav MADRID, AMBER Greco, [facility] Address: When: Unknown [facility] 11-11-2022 Hospital Discharge instructions Patient Education 03/24/2022 14:51:05 Kidney Stones, Doly-tu-Vxcv Kidney Stones Kidney stones are rock-like masses [...] Follow these instructions at home: Medicines Take spgg-yxj-kudbsfw and prescription medicines only as told by [...] 10/16/2008 Document Revised: 09/16/2019 Document Reviewed: 09/16/2019 [employer] Patient Education 2019 [employer]. Follow Up Care 03/21/2022 12:53:12 With:Gaurav MADRID, AMBER Greco, [facility] Address: When: Unknown [facility] 03-29-2022 Hospital Discharge instructions Patient Education 08/09/2021 [...] fried and sweet foods. General instructions Take jdju-iqs-trnmtos and prescription medicines only as told by [...] 02/24/2010 Document Revised: 08/21/2019 Document Reviewed: 05/16/2018 [employer] Patient Education 2020 [employer] Follow Up Care 05/10/2021 12:57:15 With:Gino Saleh MD, Tracy Sexton, U[facility] Address: When:3 months Comments:increased VESIcare/renal us and pvr [facility] evaluation + Plan note Future Appointments Appointment Date:11/08/2021 09:45:00 AM Scheduled Provider:Tracy Christian Jr., MD Location:[facility] Appointment Type:URO Office Visit [facility] Hospital course Narrative No data available for this section [facility] Hospital Discharge instructions No data available for this section [facility] No data available for this section [facility] Summary Purpose Family History No Family History Records Found No data available for this section No data available for this section No Family History Records Found Advance Directives No Advanced Directives Records FoundNo Advanced Directives Records Found Additional Source Comments Patient Care team informatio n (unrecognized section and content) Personnel Name: Phillip Unger MD Address: Address: [address] [place] [address] Personnel Name: Phillip Unger MD Address: Address: [address] [place] [address] Personnel Name: Phillip Unger MD Address: Address: [address] [place] [address] Personnel Name: Phillip Unger MD Address: Address: [address] [place] [address] GRETEL GODINEZ [address]- Personnel Name: Phillip Unger MD Address: Address: [address] [place] [address] [place]INEZ [address]- Personnel Name: Phillip Unger MD Address: Address: [address] [place] [address] [place]INEZ [address]- INFORMATION SOURCE (unrecogn ized section and content) DATE CREATED AUTHOR 10/21/2022 [facility] DATE CREATED AUTHOR AUTHOR'S ORGANIZ ATION 06/14/2023 [facility] FOR RECORDS PERTAINING TO PATIENTS [...] BE BASED ON THE PRIMARY CLINICAL RECORDS. [employer] [facility]. provides no warranty or guarantee of the accuracy or completeness of information in this document.
--- NOTE | 2023-07-29 21:56 | CT_ITS ---
[address] [address] Patient Name: CARMELO CHUNG MRN: [id number] date: 1965 Sex: F Assigned Patient Location: ER Current Patient Location: ER Accession/Order Number: [id number] Exam Date: 07/29/2023 20:19 Report Date: 07/29/2023 23:18 At the request of: LORA JUAREZ Procedure: CT abdomen pelvis wo con EXAM: CT abdomen pelvis wo con HISTORY: bilateral flank pain COMPARISON: 06/24/2022 TECHNIQUE: CT of abdomen and pelvis without intravenous contrast. Dose reduction techniques were achieved by using automated exposure control and/or adjustment of mA and/or kV according to patient size and/or use of iterative reconstruction technique. FINDINGS: Limited evaluation of the viscera/organs and vasculature without intravenous contrast. TUBES AND IMPLANTS: None. LOWER CHEST: Small hiatal hernia ABDOMEN and PELVIS ABDOMINAL WALL AND SOFT TISSUES: Unremarkable. BONES: Redemonstration sclerotic lesion involving the right iliac bone measuring up to 3.8 centimeters, stable ARTERIES: Incompletely evaluated. No aortoiliac aneurysm VEINS: Incompletely evaluated. LYMPH NODES: Unremarkable. PERITONEUM/ RETROPERITONEUM: Unremarkable. BOWEL: No obstruction. Mild diverticulosis APPENDIX: Unremarkable LIVER: Steatosis GALLBLADDER: Surgically absent BILE DUCTS: Not dilated SPLEEN: Unremarkable. PANCREAS: Unremarkable. ADRENALS: Unremarkable. KIDNEYS/ URETERS: Multiple bilateral nonobstructing right renal calculi measuring up to 4 millimeters. Punctate nonobstructing left renal calculus REPRODUCTIVE ORGANS: The uterus is surgically absent. Bilateral ovaries are not clearly identified URINARY BLADDER: Unremarkable. CT/CT abdomen pelvis wo con IMPRESSION: 1. Multiple bilateral nonobstructing right renal calculi. Punctate nonobstructing left renal calculus. 2. Mild diverticulosis. 3. Hepatic steatosis. 4. Stable appearance of indeterminate right iliac bone sclerotic lesion. 5. Small hiatal hernia. Electronically authenticated by: RAFAEL INIGUEZ Date: 07/29/2023 23:18
[2023-07-29 22:05] LABS: Basophils Absolute Auto 0.1 10^3/uL (0.0-0.1); Basophils Percent Auto 0.6 % (0.2-2.0); Eosinophils Absolute Auto 0.1 10^3/uL (0.0-0.7); Eosinophils Percent Auto 1.8 % (0.9-7.0); Hematocrit 40.7 % (36.0-48.0); Hemoglobin 13.4 g/dL (12.0-16.0); Immature Granulocytes Abs Auto 0.01 10^3/uL (0.00-0.03); Immature Granulocytes Pct Auto 0.1 % (0.0-0.5); Lymphocytes Absolute Auto 2.1 10^3/uL (1.2-3.8); Lymphocytes Percent Auto 27.1 % (20.5-60.0); Mean Corpuscular HGB Conc 32.9 g/dL (29.9-35.2); Mean Corpuscular Hemoglobin 30.3 pg (26.7-34.0); Mean Corpuscular Volume 92.1 fL (81.0-99.0); Mean Platelet Volume 10.5 fL (9.5-13.5); Monocytes Percent Auto 12.3 % (1.7-12.0); Neutrophils Absolute Auto 4.5 10^3/uL (1.4-6.5); Neutrophils Percent Auto 58.1 % (43.0-75.0); Platelet Count 243 10^3/uL (150-450); Red Blood Count 4.42 10^6/uL (4.20-5.40); Red Cell Distribution Width 12.8 % (11.0-15.0); White Blood Count 7.8 10^3/uL (4.0-11.0)
[2023-07-29 22:07] LABS: Bilirubin Urine NEGATIVE (NEGATIVE); Blood Urine NEGATIVE (NEGATIVE); Clarity Urine CLEAR (CLEAR); Color Urine LT. YELLOW (YELLOW); Glucose Urine UA NEGATIVE (NEGATIVE); Ketones Urine NEGATIVE (NEGATIVE); Leukocyte Esterase Urine NEGATIVE (NEGATIVE); Nitrite Urine NEGATIVE (NEGATIVE); Protein Urine NEGATIVE (NEG/TRACE); Specific Gravity Urine <=1.005 (1.005-1.025); Urobilinogen Urine 0.2 EU/dL (0.2-1.0); pH Urine 7.5 (5.0-9.0)
[2023-07-29 22:09] LABS: Urine Microscopic Indicated NO
[2023-07-29] MEDS: 0.9 % SODIUM CHLORIDE 1,000 ML 999 ML IV (22:15)
[2023-07-29] MEDS: KETOROLAC TROMETHAMINE 30 MG/ML VIAL IVP (22:15)
[2023-07-29] MEDS: ONDANSETRON PF 4 MG/2 ML VIAL IV (22:15)
[2023-07-29 22:23] LABS: Alanine Aminotransferase 61 U/L (14-59); Albumin Globulin Ratio 1.2; Albumin Level 3.9 g/dL (3.4-5.0); Alkaline Phosphatase 77 U/L (46-116); Aspartate Amino Transferase 43 U/L (15-37); BUN Creatinine Ratio 12.8; Bilirubin Total 0.4 mg/dL (0.2-1.0); Calcium 8.8 mg/dL (8.5-10.1); Carbon Dioxide 26.8 mmol/L (21.0-32.0); Chloride 99 mmol/L (98-107); Estimated GFR (African America >60 (>=60); Estimated GFR (Non-African Ame >60 (>=60); Globulin 3.3 g/dL; Glucose 100 mg/dL (74-106); Potassium 3.8 mmol/L (3.5-5.1); Sodium 135 mmol/L (136-145); Total Protein 7.2 g/dL (6.4-8.2)
[2023-07-29 22:40] VITALS: BP 174/90; PULSE 78; RESP 16; O2SAT 99
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
[2023-07-29] MEDS: LABETALOL HCL 20 MG/4 ML SYRINGE IVP (23:17)
[2023-07-29 23:20] VITALS: BP 155/83
[2023-07-29 23:38] VITALS: BP 146/76
== END 2023-07-29 23:50 | disposition home or self-care (01) ==
PROVIDERS: Emergency Provider Emergency Medicine; PCP Family Medicine
DX: N20.0 Calculus of kidney (principal); M54.9 Dorsalgia, unspecified; I10 Essential (primary) hypertension; F41.9 Anxiety disorder, unspecified; M19.90 Unspecified osteoarthritis, unspecified site; M79.7 Fibromyalgia; Z87.440 Personal history of urinary (tract) infections; M85.80 Other specified disorders of bone density and structure, unspecified site; Z98.890 Other specified postprocedural states; Z90.89 Acquired absence of other organs; Z90.710 Acquired absence of both cervix and uterus; Z90.49 Acquired absence of other specified parts of digestive tract; Z87.442 Personal history of urinary calculi; Z79.82 Long term (current) use of aspirin; Z79.899 Other long term (current) drug therapy; Z98.51 Tubal ligation status
CPT/HCPCS: 36415; 74176; 80053; 81003; 83690; 85025; 96374; 96375; 99284

== ENCOUNTER 2023-08-28 13:31 | Outpatient (OUT) | payer BC, OTHER, SELFPAY ==
--- NOTE | 2023-08-28 | XR_ITS ---
The [address] [address] Patient Name: CARMELO CHUNG MRN: [id number] date: 1965 Sex: F Assigned Patient Location: Current Patient Location: Accession/Order Number: [id number] Exam Date: 08/28/2023 13:39 Report Date: 08/28/2023 16:35 At the request of: EUGENIO DIAMOND Procedure: XR ankle LT min 3V PROCEDURE: XR ankle LT min 3V COMPARISON: None. HISTORY: LEFT ANKLE PAIN FINDINGS: BONES:No acute fracture or dislocation. No significant degenerative changes SOFT TISSUES:Negative. No visible soft tissue swelling. EFFUSION:None visible. OTHER: Negative. XR/XR ankle LT min 3V IMPRESSION: No acute abnormality Electronically authenticated by: BENI ORTIZ Date: 08/28/2023 16:35
== END 2023-08-28 13:32 | disposition home or self-care (01) ==
PROVIDERS: PCP Family Medicine; Visit Provider Podiatrist Foot & Ankle Surgery
DX: M76.72 Peroneal tendinitis, left leg (principal)
CPT/HCPCS: 73610

== ENCOUNTER 2023-10-18 19:22 | Outpatient (REF) | payer BC, SELFPAY ==
--- OUTSIDE RECORDS SUMMARY | 2023-10-18 19:29 | XMS_ITS | CCD ---
Author Organization [facility] Care Team Providers Care Pull Through Hooker Name Role Phone Phillip Unger Primary Care Physician [phone] LUE ., ABURIE M Attending Unavailable LUE ., AUBRIE M Admitting Unavailable HOY ., DR FISHER Primary Care Unavailable DIAB ., CHANEL Attending Unavailable HOY ., DR FISHER Primary Care Unavailable SHIRLENE, FRANCK Consulting Unavailable DIAB ., CHANEL Admitting Unavailable SOPHIA . NATALIO Consulting Unavailable DIAB ., CHANEL Consulting Unavailable ZOHREH .DR FISHER Primary Care Unavailable EUGENIO DIAMOND Attending Unavailable EUGENIO DIAMOND Admitting Unavailable LUE ., AUBRIE M Attending Unavailable LUE ., AUBRIE M Admitting Unavailable HOY .DR FISHER Primary Care Unavailable LUE ., AUBRIE Fernandez Consulting Unavailable LUE ., AUBRIE M Attending Unavailable LUE ., AUBRIE M Admitting Unavailable LUE ., AUBRIE M Consulting Unavailable HOY ., DR FISHER Primary Care Unavailable ERMA ISSA Consulting Unavailable JEMMA GANNON Consulting Unavailable LUE ., AUBRIE M Attending Unavailable LUE ., AUBRIE M Admitting Unavailable HOY .DR FISHER Primary Care Unavailable LUE ., AUBRIE M Consulting Unavailable LUE ., AUBRIE M Consulting Unavailable LUE ., UABRIE M Attending Unavailable LUE ., AUBRIE M Admitting Unavailable ZOHREH .DR FISHER Primary Care Unavailable CLARISSA VILLALTA Consulting Unavailable ZOHREH .DR FISHER Primary Care Unavailable DR JUDSON ENGLISH Consulting Unavailable ANABEL LOPEZ Attending Unavailable ANABEL LOPEZ Admitting Unavailable ANABEL LOPEZ Consulting Unavailable ZOHREH .DR FISHER Consulting Unavailable ZOHREH .DR FISHER Attending Unavailable HOY .DR FISHER Admitting Unavailable HOLiz .DR FISHER Primary Care Unavailable NADEGE GANNON Consulting Unavailable TREKAILASH PERAZA Attending Unavailable TRE, KAILASH Admitting Unavailable HOY ., DR FISHER Primary Care Unavailable TAMEKA, DR JUDSON Valera Consulting Unavailable TREKAILASH PERAZA Consulting Unavailable HOY ., DR FISHER Primary Care Unavailable AMIRAH ROE ., DR TRACY Sexton Attending Unavaila riki CHRISTIAN JR ., DR TRACY Sexton Admitting Unavaila ble ZOHREH ., DR FISHER Primary Care Unavailable HIGHLANDER, [...] HOY ., DR FISHER Primary Care Unavailable KEENE, DR BENI Lugo Consulting Unavailable LUE ., AUBRIE Fernandez Attending Unavailable LUE ., AUBRIE Fernandez Admitting Unavailable KEENE, DR BENI Lugo Consulting Unavailable HOY ., DR FISHER Primary Care Unavailable LUE .AUBRIE Consulting Unavailable HOY ., DR FISHER Primary Care Unavailable KEENE, DR BENI Lugo Consulting Unavailable HIGHLANDER, PETER D Attending Unavailable HIGHLANDER, PETER D Admitting Unavailable HIGHLANDER, PETER D Consulting Unavailable Lue, Aubrie M. Admitting Unavailable LueAubrie M. Attending Unavailable JoeeAubrie M. Referring Unavailable TREKAILASH Attending Unavailable TRE, KAILASH E Admitting Unavailable TRE, KAILASH E Admitting Unavailable TRE, KAILASH E Attending Unavailable JoeeAubrie M. Attending Unavailable TRE, KAILASH E Attending Unavailable LueAubrie MAgustin Attending Unavailable TRE, KAILASH E Attending Unavailable Allergies Allergy Classification Reported Allergen(s) Allergy Type Date of Onset Reaction(s) Facility (1 source) No Known Medication Allergies; 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: [No Known Medication Allergies] Propensity to adverse reactions (disorder) [facility] Repository Medications Current Medications Medication Drug Class(es) Dates Sig (Normalized) Sig (Original) ALPRAZolam 0.25 mg oral tablet (2 sources) Benzodiazepine Start: 03-24-2022 take 4 tablets by mouth every eight hours Xanax 0.25 mg Tab mg tab(s), Oral, q8hr, Refills(s) 0 Start Date: 03/24/22 Status: Ordered ARIPiprazole 2 mg oral tablet (8 sources) Atypical Antipsychotic Start: 06-16-2022 take 1 [...] 08/09/21 Status: Ordered Aspirin 81 mg Tab-Chew (8 sources) Start: 08-09-2021 take 1 tablet by [...] procedure, # 1 tab(s), Refills(s) 0, Pharmacy: [facility] [id number], 161, cm, 03/24/22 13:34:00 EST, Height/Length Dosing, 65, kg, 05/10/21 12:23:00 EST, Weight Dosing Start Date: 03/24/22 Status: Ordered escitalopram 10 mg oral tablet (10 sources) Serotonin Reuptake Inhibitor Start: 06-03-2020 take 1 tablet by mouth once daily Lexapro 10 mg Tab 10 mg = 1 tab(s), Oral, Daily Start Date: 06/03/20 Status: Ordered estradiol 0.1 mg/ml vaginal cream (10 sources) Estrogen Start: 06-16-2022 Estrace 0.1 mg/g Cream See Instructions, 42.5 gm, Refill(s) 3, Apply pea sized amount to urethra/vagina 3-5x/week x 2 weeks, then 2x weekly thereafter, [facility] [id number], 161, cm, 06/16/22 11:27:00 EST, Height/Length Dosing, 70.1, kg, 06/16/22 11:27:00 EST, Weight Dosing Start Date: 06/16/22 Status: Ordered Start: 01-28-2021 Estrace 0.1 mg /g Cream 1 gm, Topical, MonWedFri, 42.5 gm, Refill(s) 11, Apply peasize amount to urethral/vaginal area M-W-F for two weeks. Then twice weekly after., [id number], 163, cm, 01/28/21 9:13:00 EDT, Height/Length Dosing, 65, kg, 01/28/21 9:13:00 EDT, Weigh... Start Date: 01/28/21 Status: Ordered Start: 01-28-2021 Estrace 0.1 mg /g Cream 1 gm, Topical, MonWedFri, 42.5 gm, Refill(s) 11, Apply peasize amount to urethral/vaginal area M-W-F for two weeks. Then twice weekly after., [id number], 163, cm, 01/28/21 9:13:00 EDT, Height/Length Dosing, 65, kg, 01/28/21 9:13:00 EDT, Weigh... Start Date: 01/28/21 Status: Ordered hydroCHLOROthiazide 12.5 mg oral capsule (8 sources) Thiazide Diuretic Start: 10-11-2022 take 1 mg by mouth once daily hydrochlorothiazide 12.5 mg Cap mg cap(s), Oral, Daily, Refills(s) 0 Start Date: 10/11/22 Status: Ordered Start: 08-10-2020 take 1 tablet by robyn th once daily hydrochlorothiazide 25 mg oral tablet 25 mg = 1 tab(s), Oral, Daily, # 90 tab(s), Refills(s) 3, Pharmacy: [id number], 163, cm, 08/10/20 15:02:00 EDT, Height/Length [...] day(s), # 30 tab(s), Refills(s) 11, Pharmacy: [facility] [id number], 161, cm, 06/05/23 9:09:00 EST, Height/Length Dosing, [...] Daily, # 30 tab(s), Refills(s) 2, Pharmacy: [id number], 163, cm, 01/28/21 9:13:00 EDT, Height/Length Dosing, 65, kg, 05/10/21 12:23:00 EST, Weight Dosing Start Date: 06/14/21 Status: Ordered Vitamin D (9 sources) Start: 03-24-2022 Vitamin D [employer] , [...] later, # 2 cap(s), Refills(s) 0, Pharmacy: [facility] [id number], 161, cm, 03/24/22 13:34:00 EST, Height/Length Dosing, 65, kg, 05/10/21 12:23:00 EST, Weight... 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 [...] 06-28-2022 Chronic Genitourinary symptoms and ill-defined conditions (20 sources) Incontinence; 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: [Urinary incontinence] Onset: 06-28-2022 06-03-2020 Chronic Genitourinary symptoms and ill-defined conditions (20 sources) Nocturia; 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: [Nocturia] Onset: 08-09-2021 Episodic Hyperplasia of prostate (10 sources) Benign prostatic hypertrophy with outflow obstruction [...] Episodic Other diseases of bladder and urethra (6 sources) Detrusor overactivity; 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: [Overactive bladder] Onset: 08-09-2021 Chronic Other diseases of bladder and urethra (10 sources) Contracture of bladder neck 08-10-2020 Chronic Other diseases of bladder and urethra (10 sources) Overactive bladder 05-10-2021 Chronic Other diseases of bladder and urethra (1 source) Overactive bladder; 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: [OVERACTIVE BLADDER] Onset: 06-28-2022 Chronic Other diseases of bladder and urethra (16 sources) Urethral stricture; 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: [Other urethral stricture, female] Onset: 08-09-2021 Episodic Other diseases of bladder and urethra (2 sources) Incompetent urethral closure mechanism; 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: [Intrinsic sphincter deficiency (ISD)] Onset: 10-11-2022 Episodic Other diseases of bladder and urethra (9 sources) Urethral intrinsic sphincter deficiency; 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: [Intrinsic [...] LT ANKLE INIT] Onset: 07-27-2022 Episodic Unclassified (8 sources) Asymptomatic microscopic hematuria 06-16-2022 Past or Other Problems Problem Classification Problem Date Documented Da te Episodic/Chronic Other aftercare (1 source) Other manager intermediate (current) drug therapy; 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: [OTH ALF CURRENT DRUG THERAPY] Onset: 06-27-2022 Episodic Other aftercare (1 source) 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; 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] Onset: 06-28-2022 Episodic [...] Test Name Value Interpretation Reference Range Facility C Urineon 09-07-2023 Bacteria identified Cx Nom (U) Microbiology PROCEDURE: Urine Culture [R1] SOURCE: U CleanCatch BODY SITE: COLLECTED DATE/TIME: 09/05/2023 11:58 EDT RECEIVED DATE/TIME: 09/05/2023 17:47 EDT START DATE/TIME: 09/05/2023 17:47 EDT FREE TEXT SOURCE: KAILASH TOLEDO PA-C, PA-C, JENNIFER E FINAL REPORTS Final Report [] Verified Date/Time: 09/07/2023 10:20 EDT 3,000 cfu/ml Mixed skin contaminants Performing Locations R1: This test was performed at: [facility], [address] [place] [address], [facility]- , , [facility] Comment on above: Performed By: #### [id number] ####[facility] [address] [place] [address] ED Note-Physicianon 09-06-19 ED Note-Physician [id number]#1.00 TIFF [facility] RAD - CT Reporton 09-06-2023 RAD - CT Report [id number]#1.00 TIFF [facility] Screenson 09-06-2023 Screens [id number]#1.00T IFF [facility] Patient Educationon 09-05-19 Patient Education Urology Injection Treatments for Urinary Incontinence, Care After The following information offers guidance on how to care for yourself after your procedure. Your health care provider may also give you more specific instructions. If you have problems or questions, contact your health care provider. What can I expect after the procedure? After this procedure, it is common to have: ? Trouble passing urine. ? A small amount of blood in your urine. ? A burning or stinging sensation when passing urine. ? No improvement in your urinary incontinence for a few weeks. Follow these instructions at home: Catheter care If you have a urinary catheter in place, follow care instructions from your health care provider. You may be told to do the following things: ? Wash your hands with soap and water for at least 20 seconds before and after touching the catheter. ? Keep the area around the catheter clean and dry. ? Make sure that the catheter drainage bag is always below the level of your bladder. This stops urine from going back into the tubing and into your bladder. ? If using a bedside bag, do not lay it on the floor. If you cannot connect the bag to the side of your bed, hang the bag on a small stool or chair that is placed near the bed. ? If using a leg bag or belly bag, do not lie down with the bag attached to your leg or stomach. ? If using a leg bag, secure the tubing from your catheter to the leg bag with a small, stretchable wrap. This helps prevent the tubing from being pulled. ? Empty the catheter drainage bag when it is three-fourths full. Monitor the amount and color of your urine. ? Check to make sure that there are no twists, bends, or kinks in the catheter tube. ? Visit your health care provider to have the catheter removed. Medicines ? Take rtny-guk-upjybvr and prescription medicines only as told by your health care provider. ? If you were prescribed an antibiotic medicine, take it as told by your health care provider. Do not stop taking the antibiotic even if you start to feel better. General instructions ? Drink enough fluid to keep your urine pale yellow. ? Do not take baths, swim, or use a hot tub if you have a urinary catheter in place. ? If you were given a sedative during the procedure, it can affect you for several hours. Do not drive or operate machinery until your health care provider says that it is safe. ? Return to your normal activities as told by your health care provider. Ask your health care provider what activities are safe for you. ? Keep all follow-up visits. This is important. Contact a health care provider if you have: ? Blood in your urine for longer than a few days. ? Pain when passing urine that lasts for longer than a few days. ? A strong and uncomfortable urge to pass urine (urgency). ? Incontinence that does not improve after a few weeks. Get help right away if: ? You have a fever. ? You cannot urinate. ? You have cloudy or bad-smelling urine. ? You have pain when passing urine, and the pain is getting worse. ? You have pain in your lower back, also called the flank. ? You have a lot of blood in your urine. Summary ? After this procedure, it is common to have trouble passing urine and to have a small amount of blood in your urine. ? Your incontinence should improve in a few weeks. ? If you have a urinary catheter in place, follow care instructions from your health care provider. ? Return to your normal activities as told by your health care provider. This information is not intended to replace advice given to you by your health care provider. Make sure you discuss any questions you have with your health care provider. Document Revised: 12/16/2020 Document Reviewed: 12/03/2020 [employer] Patient Education ? 2022 [employer] Injection Treatments for Urinary Incontinence Urinary incontinence is a condition in which a person cannot control when he or she passes urine. The cause of this condition is usually a weak urinary sphincter. The urinary sphincter is the muscle that normally keeps urine from leaking. To treat this condition, a material called a bulking agent can be injected either into the urethra or into the bladder neck. The urethra is the part of the body that drains urine from the bladder. The bladder neck is the area where the bladder and urethra connect. The bulking agent is also called an implant. The implant narrows and strengthens the urethra to help control the passing of urine. Urinary incontinence is a common problem for women who have had pregnancies or certain surgeries, such as a hysterectomy, and for men who have had prostate surgery. Tell a health care provider about: ? Any allergies you have. ? All medicines you are taking, including vitamins, herbs, eye drops, creams, and khev-llz-kkguoag medicines. ? Any problems you or family members have had with anesthetic medicines. ? Any blood disorders you have. ? An (more content not included)... [facility] Urology Office/Clinic Noteon 09-05-2023 Urology Office/Clinic Note Chief Complaint 3 month F/U with FERNY HPI Staff Pt is here for a 3 month F/U with FERNY done @ [facility] 06/06/23 NEG C&S done 06/05/23 Previous DX;kidney stones, OAB, urethral stricture, microscopic hematuria, incompletely emptying bladder, dysuria B&BSQ 18 Continue taking Estradiol- Still taking with no problems [facility] for flank pain on 07/29/2023 PVR 0 Dysuria: _mild Incomplete bladder emptying: _denies Hematuria: _denies visible blood Frequency: _every 3-4 hours Urgency: sometimes Nocturia: _once nightly Stream: denies hesitation, normal stream Leaking: _yes Post void dripping: _yes Wearing pads/ Depends: _denies Urge incontinence: _denies Stress incontinence: _yes Incontinence without Sensory Awareness: _denies Abdominal pain: _denies Flank pain: _Left side pain off and on pain Sexual complaints: _denies History of Present Illness staff HPI reviewed and agree. Review of Systems PHQ Score Initial Depression Screen Score: 0 SCORE no fever, chills, malaise, myalgia. no rash/lesions. no chest pain, palpitations, or SOB. no abdominal pain, nausea, vomiting. no unilateral calf swelling, redness, pain Physical Exam Vitals & Measurements T: 37.1 ?C(Temporal Artery) HR: 78(Peripheral) BP: 144/88 HT: 63 in HT: 161 cm WT: 76.1 kg WT: 167.42 lb BMI: 29.36 General: nontoxic, NAD Mouth: moist mucosa Lungs: normal respiratory effort Cardio: regular rate, good distal perfusion Abdomen: nondistended, no suprapubic distention or tenderness, no CVA tenderness Neurologic: Grossly normal Skin: No rashes or suspicious lesions Assessment/Plan Dr. Nolasco pt 1. Intrinsic sphincter deficiency (ISD) (N36.42: Intrinsic sphincter deficiency (ISD)) BBS 18 (16). Has leakage when she bends over and with walking. Noticed increased sxs w/ new anxiety meds that caused weight gain and worsening constipation. Practices Kegel's at home. Pt shared interest in Bulkamid procedure at the time of stent removal 10/30/22. PE at the time of cysto and stent removal. Pt is a candidate for procedure. States she was going to be scheduled for procedure, however it was never scheduled. Pt c/o predominant stress incontinence. This was demonstrated on physical exam previously w KML. Specific risks of Bulkamid were discussed including: Postoperatively, transient symptoms such as dysuria, stranguria, hematuria, urinary tract infection, and acute retention may occur. Long-term side effects such as non-acute retention, abscess formation, fibrosis (tissue hardening), de harinder urgency, and necrosis are possible, but rare. Results and experiences may vary and are unique to each patient. The efficacy of the procedure may diminish over time and no promise or guarantee is made about specific results or experiences. -Schedule Bulkamid Ordered: [id number] Measure Post Void residual urine and/or bladder capacity by US- non-imaging Urine Culture Urnls Dip Stick Auto w/o Microscopy POC 59634 2. Dysuria (R30.0: Dysuria) UCx 06/05/23 - <10k mixed skin contam. UA had shown small leuks and pt was having mild burning with urination at that time. UA 07/29/23 - neg. UA today shows trace-intact blood and small leuks. Again has mild burning with urination. -Urine sample to be sent for culture. If culture is positive, pt to be treated. Will call pt with results. Ordered: [id number] Measure Post Void residual urine and/or bladder capacity by US- non-imaging Urine Culture 3. OAB (overactive bladder) (N32.81: Overactive bladder) PVR (cc): 06/05/23 - 117 09/05/23 - 0 Was not taking Myrbetriq routinely but was willing to retry this at prior OV. Now states she no longer takes this due to cost ($300). Offered alternative medication options but pt states she has failed multiple bladder meds previously and does not wish to try anything else oral at this time. Would like to proceed with procedural intervention. Discussed Botox vs SNM. Pt more interested in Botox. However we will start w Bulkamid as FRANCISCA is most bothersome complaint. -Consider Botox in the future See #2. Ordered: [id number] Measure Post Void residual urine and/or bladder capacity by US- non-imaging Urine Culture Urnls Dip Stick Auto w/o Microscopy POC 42956 4. Kidney stone (N20.0: Calculus of kidney) S/p ESWL 06/23/20 DLS - CaPhos 60%, CaOx 40%, low volume. Pt has needed stents placed in the past. CT AP wo con 06/24/22 - mild left hydronephrosis, subcentimeter bilateral renal calyceal [...] CaOx dihydrate 20%, hydroxyapatite 10% KUB 10/10/22 - scattered nonobstructing calculi of right kidney, left n (more content not included)... [facility] Comment on above: Result Comment: Elec tronically Signed By: KAILASH TOLEDO PA-C\.br\Date and Time Signed: 09/05/23 12:24 EDT\.br\Electronically Co-Signed By: Yenny Garcias\.br\Date and Time Co-Signed: 09/05/23 12:01 EDT RAD - Ultrasound Reporton RAD - Ultrasound Report [id number] IFF [facility] C Urineon 06-07-2023 Bacteria identified Cx Nom (U) Microbiology PROCEDURE: Urine Culture [R1] SOURCE: U CleanCatch BODY SITE: COLLECTED DATE/TIME: 06/05/2023 09:39 EST RECEIVED DATE/TIME: 06/05/2023 17:49 EST START DATE/TIME: 06/05/2023 17:49 EST FREE TEXT SOURCE: KAILASH TOLEDO PA-C, PA-C, KAILASH E FINAL REPORTS Final Report [] Verified Date/Time: 06/07/2023 10:14 EST <10,000 cfu/ml Mixed skin contaminants Performing Locations R1: This test was performed at: [facility], [address] [place] [address], [address]- , [place], [facility] Comment on above: Performed By: #### 2 [id number] ####[facility] [address] [place] [id number] RAD - MISCon 06-07-2023 RAD - MISC [id number]#1.00TI FF [facility] RAD - Ultrasound Reporton RAD - Ultrasound Report [id number]#1.00T IFF [facility] RAD - MISCon 06-06-2023 RAD - MISC [id number]#1.00T IFF [facility] Screenson 06-06-2023 Screens [id number]#1.00 TIFF [facility] Ambulatory Visit Summaryon 0 06-05-2023 Ambulatory Visit Summary ELI CHUNG :1965 Visit Date:06/05/2023 Ambulatory Visit Instructions Your Diagnosis Kidney stone OAB (overactive bladder) Other urethral stricture, female Asymptomatic microscopic hematuria Intrinsic sphincter deficiency (ISD) Incomplete bladder emptying Dysuria Tests Performed Urnls Dip Stick Auto w/o Microscopy POC 92743 US Renal -- Results Pending -- Please [...] KAILASH TOLEDO PA-C, URL When: Where: [address] [facility] [place] [address] Medications What How Much When Instructions Unchanged [...] Urnls Dip Stick Auto w/o Microscopy POC 14325 (06/05/2023) Bilirubin Urine Dipstick - Negative Blood Urine Dipstick - Negative Glucose Urine Dipstick - Negative Ketones Urine Dipstick - Negative Leukocytes Urine Dipstick - 1+ Small Nitrite Urine Dipstick - Negative Protein Urine Dipstick - Negative Specific [place] Urine Dipstick - 1.020 Urine Appearance Urine [...] as told by your doctor. ? Take kzlc-bha-gheaocn and prescription medicines only as told by [...] Your sympto (more content not included)... [facility] Patient Educationon 06-05-19 Patient Education Orthopedics [...] as told by your doctor. ? Take osat-iqr-ahggtcf and prescription medicines only as told by [...] provider. Document Revised: 07/11/2021 Document Reviewed: 07/11/2021 [employer] Patient Education ? 2022 [employer] [facility] Urology Office/Clinic Noteon 06-05-2023 Urology Office/Clinic [...] time of Stent Removal. KUB 06/04/23 @ [facility] (no report as of when preloading) [...] 04/2021 - Left renal calculi. KUB at [facility] on 08/22/2021 - bilateral stones measuring [...] PE a (more content not included)... [facility] Comment on above: Result Comment: Elec tronically Signed By: KAILASH TOLEDO PA-C\.br\Date and Time Signed: 06/05/23 11:10 EST\.br\Electronically Co-Signed By: Rachel Toledo\.br\Date and Time Co-Signed: 06/05/23 09:42 EST Patient Letter FTon 2022 Patient Letter FT (Inserted Image. Milvia ble to display) March 27, [address] CHUNG [address] [place] [id number] : 1965 Sent via certified and regular [...] [facility] [address], [place] [address] Aubrie Nolasco M.D. [facility] [place] [address] [place] [address] [facility] Reminderson 03-27-2023 Reminders - From: Patricia Campoverde To: EU - Recalls Gaurav; Sent: 10/30/2022 10:33:15 EDT Show up: 11/27/2022 00:00:00 EDT Subject: schedule FERNY Reminder/Recall called and schedule FERNY @ [facility] for patient at end of November [...] From: Aubrie Nolasco MD To: EU - Recalls Gaurav; Cc: Patricia Campoverde; Sent: 12/18/2022 19:23:19 EDT Show up: 12/18/2022 19:23:00 EDT Subject: RE: schedule FERNY Call pt to schedule renal US and ensure she completes her metabolic stone workup as discussed at her cysto/stent removal. Schedule follow up afterwards to review. called patient, left message. FERNY order faxed to [facility] to be scheduled. Called pt and left VM to return our call and let us know if she has completed metabolic w/u or FERNY patient still has not called office, Sent unable to contact letter. If no response, will send certified. certified/non certified letter prepared and mailed to patient [facility] Provider Letteron 02-21-2023 Provider Letter (Inserted Image. Milvia ble to display) February 21, [address] CHUNG [address] [place] [id number] : 1965 Dear Eli , We have [...] Dr. Aubrie Nolasco MD [facility] [address] [facility], [place] [address] [facility] Lab Reportson 11-05-2022 Lab Reports [id number]#1.00C D:127 [facility] Pre-Certification Formon Pre-Certification Form [id number]#1.00 CD:127 [facility] Operative Reporton Operative Report [id number]#1.00CD :127 [facility] Consent for Procedure/Surger yon 10-30-2022 Consent for Procedure/Surgery [id number]#1.00CD :127 [facility] Consent for Treatmenton 10-12 Consent for Treatment [id number] D:127 [facility] Inpatient Patient Summaryon 10-30-2022 Inpatient Patient Summary [place] [id number] Clinical Summary Person Information Name: ELI CHUNG Age: 57 Years : 1965 Sex: Female PCP: Phillip Unger MD Marital Status: Race: White Ethnicity: Non- or Language: Latvian Visit Id: Visit Reason: KIDNEY STONE Speciality: Acuity: Enc Type: Outpatient Med Service: Surgery Arrival: 10/30/2022 08:56:54 Discharge: Dispo Type: Address: [address] [place] [phone] Provider Notes: Diagnosis: Intrinsic sphincter deficiency (ISD); [...] up: With: Address: When: Aubrie Gaurav [address], [place] [phone] Business (1) [address], [address], [facility] [address] [place] [phone] Business (1) Comments: Office will schedule Bulkamid and follow up renal US in 6 wks Patient Education Information: EU - Cystoscopy with Stent Removal Discharge Instructions (CUSTOM); EU - Cystoscopy Discharge Instructions (CUSTOM) [facility] IntraOperative Documentson 0 10-30-2022 IntraOperative Documents [id number]#1.00CD :127 [facility] Main OR Intraoperative Recor don 10-30-2022 Main OR Intraoperative Record IntraOp Document Type FTURO Summary Primary Physician: Aubrie Nolasco MD Finalized Date/Time: 10/30/22 10:26:17 Pt. Name: ELI CHUNG/Sex: 1965 Female Med Rec #: [id number] Physician: Aubrie Nolasco MD Financial #: [id number] Pt. Type: O Room/Bed: / Admit/Disch: 10/30/22 08:56:54 - Institution: Case Times FTURO Entry 1 Patient Times In Room 10/30/22 10:01:00 Out Room 10/30/22 10:22:00 Procedure Times Start 10/30/22 10:10:00 Stop 10/30/22 10:17:00 Anesthesia Times Last Modified By: Leta CORRAL, Karyn GOMES 10/30/22 10:15:38 Case Attendance FTURO Entry 1 Entry 2 Entry 3 Case Attendee Gaurav MADRID, Aubrie Gillette RN, MIREYA, Peace Ji Role Performed Surgeon - Primary Limited Radiology Technician - Primary Scrub - Primary Time In [...] Outcomes Met? Yes placement Last Modified By: Leta CORRAL, JARREDOR, Karyn 10/30/22 09:13:54 Post-Care Text: The patient is [...] Nolasco MD, Verified (If Participants Leta CORRAL, CNOR, Applicable) Garrison Boss Jessica D Time Out [...] MIREYA Gillette RN, Ruthann 10/30/22 10:26 [facility] Main OR Preoperative Recordo n 10-30-2022 Main OR Preoperative Record Holding Area Document Type FTURO Summary Primary Physician: Aubrie Nolasco MD Finalized Date/Time: 10/30/22 09:16:09 Pt. Name: ELI CHUNG/Sex: 1965 Female Med Rec #: [id number] Physician: Aubrie Nolasco MD Financial #: [id number] Pt. Type: O Room/Bed: / Admit/Disch: 10/30/22 [...] Kim Peña RN 10/30/22 09:08:29 Finalized By: Leta CORRAL, Karyn GOMES Document Signatures Signed By: Kim Peña RN 10/30/22 09:11 Kim Peña RN 10/30/22 09:08 Kim Peña RN 10/30/22 09:08 MIREYA Gillette RN, Ruthann 10/30/22 09:16 [facility] Operative Reporton Operative Report Patient: CHRIS CHUNG Age: 57 years Sex: Female : 1965 Associated Diagnoses: None Author: Aubrie Nolasco MD Procedure Operative Information Details: Date/ Time: 10/30/2022 10:21:00. Pre-Op Dx: Kidney stone ([id number]-[id number] N20.0, Discharge, Medical), Foreign Body in Bladder [...] pt desires to proceed with Bulkamid. [facility] Comment on above: Result Comment: Elec tronically Signed By: Aubrie Nolasco MD\.br\Date and Time Signed: 10/30/22 10:23 EDT Outpatient Surgery Discharge Instructionon 10-30-2022 Outpatient Surgery Discharge Instruction [id number]#1.00CD :127 [facility] Outpatient Surgery Discharge Instruction [place] [id number] Patient Discharge Instructions PERSON INFORMATION Name: ELI [...] With: Address: When: Aubrie Nolasco [address] [place] [phone] Business (1) [address] [place] [address], [place] [phone] Business (1) Comments: Office will schedule Bulkamid [...] to serve you. Thank you for choosing [facility] Progress Note-Physicianon Progress Note-Physician Patient: ELI [...] x 2 weeks, then 2x weekly thereafter, [facility] [id number], 161, cm, 06/16/22 11:27:00 EST, Height/Length Dosing, 70.1, kg, 06/16/22 11:27:00 EST, Weight Do... Myrbetriq 50 mg oral tablet, extended release: 50 mg = 1 tab(s), Oral, Daily, X 30 day(s), # 30 tab(s), Refills(s) 11, Pharmacy: [facility] [id number], 161, cm, 06/16/22 11:27:00 EST, Height/Length Dosing, [...] and Plan: Diagnosis: Intrinsic sphincter deficiency (ISD) ([id number]-[id number] N36.42, Discharge, Medical), Mixed incontinence (YKB16-HJ N39.46, Working, Medical), Kidney stone ([id number]-WX N20.0, Discharge, Medical). 57 year old female [...] dietary modifications -Follow-up stone analysis results from [facility] -Patient has Litholink kit at home. She [...] and procedures in caring for the patient. [facility] Comment on above: Result Comment: Elec tronically Signed By: Gaurav MADRID, Aubrie Cho\.br\Date and Time Signed: 10/30/22 12:35 EDT Pre-Certification Formon Pre-Certification Form [id number]#1.00C D:127 [facility] Patient Educationon 10-12-19 23 Patient Education Urology [...] nerve stimulation). ? For women, using a clinical specialist medical device to prevent urine leaks. This is a [...] urine. ? (more content not included)... [facility] Urology Office/Clinic Noteon 10-11-2022 Urology Office/Clinic [...] done 06/19/22), never sent urine out to [facility]. Pt states she has not gotten this done. Has been taking the HCTZ. Originally prescribed by Dr Christian, Refills have been made by PCP. Stone Analysis 06/21/22 Pt went to [place] [facility] 06/24/22 due to hematuria & Lt flank pain. Given Calumet & Zofran at that time. CT 06/24/22 [...] 04/2021 - Left renal calculi. KUB at [facility] on 08/22/2021 - bilateral stones measuring [...] Estradiol 2x (more content not included)... [facility] Comment on above: Result Comment: Elec tronically Signed By: Aubrie Nolasco MD\.br\Date and Time Signed: 10/11/22 12:19 EDT\.br\Electronically Co-Signed By: Yenny Garcias\.br\Date and Time Co-Signed: 10/11/22 11:12 EDT SHANTA by IFAon 07-25-2022 Antinuclear Antibodies, IFA Positive Abnormal [facility] Comment on above: Result Comment: Nega tive <1:80 Borderline 1:80 Positive >1:80 Performed By: #### C ALCULI #### [facility] [address] [place] [address] [address] Michael Murillo Centriole Pattern Normal [facility] Comment on above: Performed By: #### C ALCULI #### [facility] [address] [place] [address] [address] Michael Murillo Centromere Pattern Normal [facility] Comment on above: Performed By: #### C ALCULI #### [facility] [address] [place] [address] [address] Michael Murillo Homogeneous Pattern 1:80 Normal [facility] Comment on above: Result Comment: ICAP nomenclature: AC-1 Performed By: #### C ALCULI #### [facility] [address] [place] [address] [address] Michael Murillo Midbody Pattern Normal [facility] Comment on above: Performed By: #### C ALCULI #### [facility] [address] [place] [address] [address] Micahel Murillo Note: Comment Normal [facility] Comment on above: Result Comment: For [...] titers Nucleosomes, Histones Drug-induced SLE Speckled Sm, AERODYNAMICS PROFESSOR, SCL-70, SLE,MCTD,PSS (diffuse form), SS-A/SS-B Sjogrens Nucleolar SCL-70, PM-1/SCL High titers Scleroderma, PM/DM Centromere Centromere PSS (limited form) w/Crest syndrome variable Nuclear Dot Sp100,c90-kdirne Primary Biliary Cirrhosis Nuclear GP210, Primary Biliary Cirrhosis Membrane addison A,B,C Performed By: #### C ALCULI #### [facility] [address] [place] [address] Dr. Michael Murillo Nuclear Dot Pattern Normal [facility] Comment on above: Performed By: #### C ALCULI #### [facility] [address] [place] [address] Dr. Michael Murillo Nuclear Membrane Pattern Normal [facility] Comment on above: Performed By: #### C ALCULI #### [facility] [address] [place] [address] Dr. Michael Murillo Nucleolar Pattern Normal [facility] Comment on above: Performed By: #### C ALCULI #### [facility] [address] [place] [address] Dr. Michael Murillo PCNA Pattern Normal [facility] Comment on above: Performed By: #### C ALCULI #### [facility] [address] [place] [address] Dr. Michael Murillo Speckled Pattern Normal [facility] Comment on above: Performed By: #### C ALCULI #### [facility] [address] [place] [address] Dr. Michael Murillo Spindle Apparatus Pattern Normal [facility] Comment on above: Performed By: #### C ALCULI #### [facility] [address] [place] [address] Dr. Michael Murillo INSULINon 07-22-2022 Insulin 10.8 uIU/mL Normal 2.6-24.9 [facility] Comment on above: Performed By: #### I NSULIN #### [facility] [address] [place] [address] Dr. Michael Murillo CBC AUTO DIFFon 07-21-2022 BASO # 0.1 103/ul Normal 0.0-0.1 [facility] Comment on above: Performed By: #### T 7, TSH, LIPID, CMP #### [facility] [address] [place] [address] Dr. Michael Murillo Basophils/100 WBC (Bld) 0.9 % Normal 0.2-2.0 [facility] Comment on above: Performed By: #### T 7, TSH, LIPID, CMP #### [facility] [address] [place] [address] Dr. Michael Murillo EO # 0.1 103/ul Normal 0.0-0.7 [facility] Comment on above: Performed By: #### T 7, TSH, LIPID, CMP #### [facility] [address] [place] [address] Dr. Michael Murillo Eosinophils/100 WBC (Bld) 2.1 % Normal 0.9-7.0 [facility] Comment on above: Performed By: #### T 7, TSH, LIPID, CMP #### [facility] [address] [place] [address] Dr. Michael Murillo Erythrocyte distribution width (RBC) [Ratio] 12.7 % Normal 11.0-15.0 [facility] Comment on above: Performed By: #### T 7, TSH, LIPID, CMP #### [facility] [address] [place] [address] Dr. Michael Murillo Hematocrit (Bld) [Volume fraction] 39.3 % Normal 36.0-48.0 [facility] Comment on above: Performed By: #### T 7, TSH, LIPID, CMP #### [facility] [address] [place] [address] Dr. Michael Murillo Hemoglobin (Bld) [Mass/Vol] 13.1 g/dL Normal 12.0-16.0 [facility] Comment on above: Performed By: #### T 7, TSH, LIPID, CMP #### [facility] [address] [place] [address] Dr. Michael Murillo IG # 0.02 10e3/ul Normal 0.00-0.03 [facility] Comment on above: Performed By: #### T 7, TSH, LIPID, CMP #### [facility] [address] [place] [address] Dr. Michael Murillo IG % 0.4 % Normal 0.0-0.5 [facility] Comment on above: Performed By: #### T 7, TSH, LIPID, CMP #### [facility] [address] [place] [address] Dr. Michael Murillo LYMPH # 1.5 103/ul Normal 1.2-3.8 [facility] Comment on above: Performed By: #### T 7, TSH, LIPID, CMP #### [facility] [address] [place] [address] Dr. Michael Murillo Lymphocytes/100 WBC (Bld) 25.5 % Normal 20.5-60.0 [facility] Comment on above: Performed By: #### T 7, TSH, LIPID, CMP #### [facility] [address] [place] [address] Dr. Michael Murillo MANUAL DIFF REQ NO Normal [facility] Comment on above: Performed By: #### T 7, TSH, LIPID, CMP #### [facility] [address] [place] [address] Dr. Michael Murillo MCH (RBC) [Entitic mass] 30.1 pg Normal 26.7-34.0 [facility] Comment on above: Performed By: #### T 7, TSH, LIPID, CMP #### [facility] [address] [place] [address] Dr. Michael Murillo MCHC (RBC) [Mass/Vol] 33.3 g/dL Normal 29.9-35.2 [facility] Comment on above: Performed By: #### T 7, TSH, LIPID, CMP #### [facility] [address] [place] [address] Dr. Michael Murillo MCV (RBC) [Entitic vol] 90.3 fL Normal 81.0-99.0 [facility] Comment on above: Performed By: #### T 7, TSH, LIPID, CMP #### [facility] [address] [place] [address] Dr. Michael Murillo MONO # 0.7 103/ul Normal 0.3-0.8 [facility] Comment on above: Performed By: #### T 7, TSH, LIPID, CMP #### [facility] [address] [place] [address] Dr. Michael Murillo Monocytes/100 WBC (Bld) 12.1 % Critically high 1.7-12.0 [facility] Comment on above: Performed By: #### T 7, TSH, LIPID, CMP #### [facility] [address] [place] [address] Dr. Michael Murillo NEUT # 3.4 103/ul Normal 1.4-6.5 [facility] Comment on above: Performed By: #### T 7, TSH, LIPID, CMP #### [facility] [address] [place] [address] Dr. Michael Murillo Neutrophils/100 WBC (Bld) 59.0 % Normal 43.0-75.0 [facility] Comment on above: Performed By: #### T 7, TSH, LIPID, CMP #### [facility] [address] [place] [address] Dr. Michael Murillo Platelet mean volume (Bld) [Entitic vol] 9.5 fL Normal 9.5-13.5 [facility] Comment on above: Performed By: #### T 7, TSH, LIPID, CMP #### [facility] [address] [place] [address] Dr. Michael Murillo PLT 253 103/ul Normal 150-450 [facility] Comment on above: Performed By: #### T 7, TSH, LIPID, CMP #### [facility] [address] [place] [address] Dr. Michael Murillo RBC 4.35 106/ul Normal 4.20-5.40 [facility] Comment on above: Performed By: #### T 7, TSH, LIPID, CMP #### [facility] [address] [place] [address] Dr. Michael Murillo WBC 5.7 103/ul Normal 4.0-11.0 [facility] Comment on above: Performed By: #### T 7, TSH, LIPID, CMP #### [facility] [address] [place] [address] Dr. Michael Murillo FREE THYROXINE INDEX T7on FTI 2.45 Normal 1.30-4.50 [facility] Comment on above: Performed By: #### T 7, TSH, LIPID, CMP #### [facility] [address] [place] [address] Dr. Michael Murillo T3U 34.0 % Normal 30.0-39.0 [facility] Comment on above: Performed By: #### T 7, TSH, LIPID, CMP #### [facility] [address] [place] [address] Dr. Michael Murillo T4 [Mass/Vol] 7.20 ug/dL Normal 4.80-13.90 [facility] Comment on above: Performed By: #### T 7, TSH, LIPID, CMP #### [facility] [address] [place] [address] Dr. Michael Murillo GLYCOHEMOGLOBIN A1Con 2022 ADA RECOMMENDATION SEE BELOW Normal [facility] Comment on above: Result Comment: ADA RECOMMENDED LIMIT 4.0 - 6.0 ADA THERAPEUTIC TARGET < 7.0 ACTION SUGGESTED > 7.0 Performed By: #### C AMANDA #### [facility] [address] [place] [address] Dr. Michael Murillo Glucose [Mass/Vol] 123 mg/dL Normal [facility] Comment on above: Performed By: #### C ALCANTONINO #### [facility] [address] [place] [address] Dr. Michael Murillo HbA1c (Bld) [Mass fraction] 5.9 % Normal 4.5-6.2 [facility] Comment on above: Performed By: #### C ALCANTONINO #### [facility] [address] [place] [address] Dr. Michael Murillo IRONon 07-21-2022 Iron [Mass/Vol] 110.0 ug/dL Normal 50.0-170.0 [facility] Comment on above: Performed By: #### C ALCULI #### [facility] [address] [place] [address] [address] Michael Murillo LIPID PROFILEon 07-21-2022 CHOL-HDL RATIO NORM SEE BELOW Normal [facility] Comment on above: Result Comment: 3.3 - 4.4 LOW RISK 4.4 - 7.1 AVERAGE RISK 7.1 - 11.0 MODERATE RISK >11.0 HIGH RISK Performed By: #### T 7, TSH, LIPID, CMP #### [facility] [address] [place] [address] [address] Michael Murillo Cholesterol [Mass/Vol] 257 mg/dL Critically high <=200 [facility] Comment on above: Performed By: #### T 7, TSH, LIPID, CMP #### [facility] [address] [place] [address] Dr. Michael Murillo Cholesterol in HDL [Mass/Vol] 89 mg/dL Critically high 40-60 [facility] Comment on above: Performed By: #### T 7, TSH, LIPID, CMP #### [facility] [address] [place] [address] [address] Michael Murillo Cholesterol in LDL [Mass/Vol] 156.4 mg/dL Normal [facility] Comment on above: Performed By: #### T 7, TSH, LIPID, CMP #### [facility] [address] [place] [address] [address] Michael Murillo Cholesterol.total/Cho lesterol in HDL [Mass ratio] 2.9 {ratio} Normal [facility] Comment on above: Performed By: #### T 7, TSH, LIPID, CMP #### [facility] [address] [place] [address] Dr. Michael Murillo HDL NORMAL > or = 60 mg/dl - LO W CARDIOVASCULAR RISK <40 mg/dl - HIGH CARDIOVASCULAR RISK Normal [facility] Comment on above: Performed By: #### T 7, TSH, LIPID, CMP #### [facility] [address] [place] [address] Dr. Michael Murillo LDL CALC NORMAL SEE BELOW Normal [facility] Comment on above: Result Comment: <100 mg/dl OPTIMAL 100 - 129 mg/dl NEAR OR ABOVE OPTIMAL 130 - 159 mg/dl BORDERLINE HIGH 160 - 189 mg/dl HIGH >190 mg/dl VERY HIGH Performed By: #### T 7, TSH, LIPID, CMP #### [facility] [address] [place] [address] Dr. Michael Murillo Triglyceride [Mass/Vol] 58 mg/dL Normal <=150 [facility] Comment on above: Performed By: #### T 7, TSH, LIPID, CMP #### [facility] [address] [address] [address] Michael Murillo VLDL CALC 11.6 mg/dL Normal [facility] Comment on above: Performed By: #### T 7, TSH, LIPID, CMP #### [facility] [address] [place] [address] Dr. Michael Murillo PROF 14(COMP METB)on 023 Albumin [Mass/Vol] 3.8 g/dL Normal 3.4-5.0 [facility] Comment on above: Performed By: #### T 7, TSH, LIPID, CMP #### [facility] [address] [place] [address] Dr. Michael Murillo Albumin/Globulin [Mass ratio] 1.2 {ratio} Normal [facility] Comment on above: Performed By: #### T 7, TSH, LIPID, CMP #### [facility] [address] [place] [address] Dr. Michael Murillo ALP [Catalytic activity/Vol] 103 U/L Normal 46-116 [facility] Comment on above: Performed By: #### T 7, TSH, LIPID, CMP #### [facility] [address] [place] [address] Dr. Michael Murillo ALT [Catalytic activity/Vol] 38 U/L Normal 14-59 [facility] Comment on above: Performed By: #### T 7, TSH, LIPID, CMP #### [facility] [address] [place] [address] Dr. Michael Murillo Anion gap [Moles/Vol] 10.1 mmol/L Normal [facility] Comment on above: Performed By: #### T 7, TSH, LIPID, CMP #### [facility] [address] [place] [address] Dr. Michael Murillo AST [Catalytic activity/Vol] 27 U/L Normal 15-37 [facility] Comment on above: Performed By: #### T 7, TSH, LIPID, CMP #### [facility] [address] [place] [address] Dr. Michael Murillo Bilirubin [Mass/Vol] 0.4 mg/dL Normal 0.2-1.0 [facility] Comment on above: Performed By: #### T 7, TSH, LIPID, CMP #### [facility] [address] [place] [address] Dr. Michael Murillo Calcium [Mass/Vol] 8.9 mg/dL Normal 8.5-10.1 [facility] Comment on above: Performed By: #### T 7, TSH, LIPID, CMP #### [facility] [address] [place] [address] Dr. Michael Murillo Chloride [Moles/Vol] 107 mmol/L Normal 98-107 [facility] Comment on above: Performed By: #### T 7, TSH, LIPID, CMP #### [facility] [address] [place] [address] Dr. Michael Murillo CO2 [Moles/Vol] 29.8 mmol/L Normal 21.0-32.0 [facility] Comment on above: Performed By: #### T 7, TSH, LIPID, CMP #### [facility] [address] [place] [address] Dr. Michael Mruillo Creatinine [Mass/Vol] 0.86 mg/dL Normal 0.55-1.02 [facility] Comment on above: Performed By: #### T 7, TSH, LIPID, CMP #### [facility] [address] [place] [address] Dr. Michael Murillo EGFR-AF GUATEMALAN >60 Normal >=60 [facility] Comment on above: Performed By: #### T 7, TSH, LIPID, CMP #### [facility] [address] [place] [address] Dr. Michael Murillo EGFR-NON AF GUATEMALAN >60 Normal >=60 [facility] Comment on above: Performed By: #### T 7, TSH, LIPID, CMP #### [facility] [address] [address] [address] Michael Murillo Globulin (S) [Mass/Vol] 3.2 g/dL Normal [facility] Comment on above: Performed By: #### T 7, TSH, LIPID, CMP #### [facility] [address] [address] [address] Michael Murillo Glucose [Mass/Vol] 96 mg/dL Normal 74-106 [facility] Comment on above: Performed By: #### T 7, TSH, LIPID, CMP #### [facility] [address] [place] [address] Dr. Michael Murillo Potassium [Moles/Vol] 3.9 mmol/L Normal 3.5-5.1 [facility] Comment on above: Performed By: #### T 7, TSH, LIPID, CMP #### [facility] [address] [place] [address] Dr. Michael Murillo Protein [Mass/Vol] 7.0 g/dL Normal 6.4-8.2 [facility] Comment on above: Performed By: #### T 7, TSH, LIPID, CMP #### [facility] [address] [place] [address] Dr. Michael Murillo Sodium [Moles/Vol] 143 mmol/L Normal 136-145 [facility] Comment on above: Performed By: #### T 7, TSH, LIPID, CMP #### [facility] [address] [place] [address] Dr. Michael Murillo Urea nitrogen [Mass/Vol] 17.0 mg/dL Normal 7.0-18.0 [facility] Comment on above: Performed By: #### T 7, TSH, LIPID, CMP #### [facility] [address] [place] [address] Dr. Michael Murillo Urea nitrogen/Creatinine [Mass ratio] 19.8 mg/mg Normal [facility] Comment on above: Performed By: #### T 7, TSH, LIPID, CMP #### [facility] [address] [place] [address] Dr. Michael Murillo TSHon 07-21-2022 TSH 2.426 uIU/mL Normal 0.358-3.740 [facility] Comment on above: Performed By: #### T 7, TSH, LIPID, CMP #### [facility] [address] [address] [address] Michael Murillo VITAMIN D 25 OHon 07-21-2022 VIT D 25-OH 62.1 ng/mL Normal [facility] Comment on above: Performed By: #### C ALCULI #### [facility] [address] [address] [address] Michael Murillo VIT D RANGES SEE BELOW Normal [facility] Comment on above: Result Comment: <20 ng/mL Vit D deficient 20 - <30 ng/mL Vit D insufficient 30 - 100 ng/mL Vit D sufficient >100 ng/mL Potential Toxicity Performed By: #### C ALCULI #### [facility] [address] [address] [address] Michael Murillo MRI FOOT LT WO [...] by: NADEGE GANNON Date: 2022-07-20 16:22 Normal [facility] NM BONE IMAGE 3 PHASEon 06-15 NM BONE IMAGE 3 PHASE EXAMINATION: NM GERTRUDE NE IMAGE 3 PHASE HISTORY: Pain [...] by: BENI ORTIZ Date: 2022-07-10 13:57 Normal [facility] CALCULI, URINARYon 3 2,8 Dihydroxyadenine Normal [facility] Comment on above: Performed By: #### C ALCULI #### [facility] [address] [place] [address] Dr. Michael Murillo Ammonium Acid Urate Normal [facility] Comment on above: Performed By: #### C ALCULI #### [facility] [address] [address] [address] Michael Murillo Bilirubin Ql (U) Normal [facility] Comment on above: Performed By: #### C ALCULI #### [facility] [address] [address] [address] Michael Murillo Ca Oxalate Dihydrate 20 % Normal [facility] Comment on above: Performed By: #### C ALCULI #### [facility] [address] [address] [address] Michael Murillo CaHPO4 (Brushite) Normal [facility] Comment on above: Performed By: #### C ALCULI #### [facility] [address] [address] [address] Michael Murillo Calcium Bilirubinate Normal [facility] Comment on above: Performed By: #### C ALCULI #### [facility] [address] [address] [address] Michael Murillo Calcium Carbonate Normal [facility] Comment on above: Performed By: #### C ALCULI #### [facility] [address] [address] [address] Michael Murillo Calcium Oxalate Monohydrate 70 % Normal [facility] Comment on above: Performed By: #### C ALCULI #### [facility] [address] [address] [address] Michael Murillo Calcium Palmitate [facility] Comment on above: Performed By: #### C ALCULI #### [facility] [address] [address] [address] Michael Murillo Calcium Phosphate [facility] Comment on above: Performed By: #### C ALCULI #### [facility] [address] [place] [address] Dr. Michael Murillo Calcium Stearate [facility] Comment on above: Performed By: #### C ALCULI #### [facility] [address] [place] [address] Dr. Michael Murillo Carbonate Apatite [facility] Comment on above: Performed By: #### C ALCULI #### [facility] [address] [address] [address] Michael Murillo Cellular Material [facility] Comment on above: Performed By: #### C ALCULI #### [facility] [address] [address] [address] Michael Murillo Cholesterol [facility] Comment on above: Performed By: #### C ALCULI #### [facility] [address] [address] [address] Michael Murillo Color (U) Brown Normal [facility] Comment on above: Performed By: #### C ALCULI #### [facility] [address] [address] [address] Michael Murillo Comment Comment [facility] Comment on above: Result Comment: Calc ium phosphate (hydroxyl form) includes hydroxyapatite, amorphous calcium phosphate, and whitlockite. Hydroxyapatite is the most common of the calcium phosphate salts found in human kidney stones. Performed By: #### C ALCULI #### [facility] [address] [place] [address] Dr. Michael Murillo Comment Normal [facility] Comment on above: Performed By: #### C ALCULI #### [facility] [address] [place] [address] Dr. Michael Murillo Comment: Comment Normal [facility] Comment on above: Result Comment: Malissa feldman questions regarding Calculi Analysis contact [employer] at: [phone]. Performed By: #### C ALCULI #### [facility] [address] [place] [address] Dr. Michael Murillo Composition Comment Normal [facility] Comment on above: Result Comment: Perc entage (Represents the % composition) Performed By: #### C ALCULI #### [facility] [address] [place] [address] Dr. Michael Murillo Cystine Normal [facility] Comment on above: Performed By: #### C ALCULI #### [facility] [address] [place] [address] Dr. Michael Murillo Disclaimer: Comment [facility] Comment on above: Result Comment: This test was developed and its performance characteristics determined by [employer]. It has not been cleared or approved by the Food and Drug Administration. Performed By: #### C ALCULI #### [facility] [address] [place] [address] Dr. Michael Murillo Dried Blood Normal [facility] Comment on above: Performed By: #### C ALCULI #### [facility] [address] [place] [address] Dr. Michael Murillo Drug or Metabolite Normal [facility] Comment on above: Performed By: #### C ALCULI #### [facility] [address] [place] [address] Dr. Michael Murillo Hydroxyapatite 10 % Normal [facility] Comment on above: Performed By: #### C ALCULI #### [facility] [address] [place] [address] Dr. Michael Murillo Mg NH4 PO4 (Struvite) Normal [facility] Comment on above: Performed By: #### C ALCULI #### [facility] [address] [address] [address] Michael Murillo MgHPO4 ([facility]) Normal [facility] Comment on above: Performed By: #### C ALCULI #### [facility] [address] [address] [address] Michael Murillo Other component(s) Normal [facility] Comment on above: Performed By: #### C ALCULI #### [facility] [address] [address] [address] Michael Murillo PDF . [facility] Comment on above: Performed By: #### C ALCULI #### [facility] [address] [address] [address] Michael Murillo Photo Comment [facility] Comment on above: Result Comment: Phot ograph will follow under a separate cover Performed By: #### C ALCULI #### [facility] [address] [address] [address] Michael Murillo Please note: Comment [facility] Comment on above: Result Comment: Calc antonino report will follow via computer, mail or business job titles delivery. Performed By: #### C ALCULI #### [facility] [address] [address] [address] Michael Murillo Size 3x3 [facility] Comment on above: Result Comment: Mult iple pieces received. Dimensions of the largest piece reported. Performed By: #### C ALCULI #### [facility] [address] [address] [address] Michael Murillo Sodium Acid Urate [facility] Comment on above: Performed By: #### C ALCULI #### [facility] [address] [address] [address] Michael Murillo Source Comment [facility] Comment on above: Result Comment: Left Kidney Performed By: #### C ALCULI #### [facility] [address] [address] [address] Michael Murillo Triamterene [facility] Comment on above: Performed By: #### C ALCULI #### [facility] [address] [address] [address] Michael Murillo Uric Acid Normal [facility] Comment on above: Performed By: #### C ALCULI #### [facility] [address] [address] [address] Michael Murillo Uric Acid Dihydrate Normal [facility] Comment on above: Performed By: #### C ALCULI #### [facility] [address] [address] [address] Michael Murillo Weight 37 mg Normal [facility] Comment on above: Performed By: #### C ALCULI #### [facility] [address] [address] [address] Michael Murillo Xanthine [facility] Comment on above: Performed By: #### C ALCULI #### [facility] [address] [address] [address] ABD/PELVIS WO CONon 06-25 CT ABD/PELVIS [...] FRANCK GARBER Date: 2022-06-24 22:07 Normal [facility] CARDIAC LUDMILA ADMITon 023 CK [Catalytic activity/Vol] 111 U/L Normal 26-192 [facility] Comment on above: Performed By: #### C MADM, CMP #### [facility] [address] [address] [address] Michael Murillo CK.MB [Mass/Vol] 0.90 ng/mL Normal <=3.60 [facility] Comment on above: Performed By: #### C MADM, CMP #### [facility] [address] [place] [address] Dr. Michael Murillo HSTROP 6.6 pg/mL Normal 4.0-51.3 [facility] Comment on above: Result Comment: CUT- OFF POINTS HAVE BEEN ESTABLISHED BASED ON THE FOURTH UNIVERSAL DEFINITIONS OF MYOCARDIAL INFARCTION. THE UPPER REFERENCE LIMIT (URL) OF TROPONIN, DEFINED THE 99TH PERCENTILE OF cTnI DISTRIBUTION IN A REFERENCE POPULATION, HAS BEEN CONFIRMED THE DECISION THRESHOLD FOR [place] DIAGNOSIS. Performed By: #### C MADM, CMP #### [facility] [address] [place] [address] Dr. Michael Murillo KEARA 42 ng/mL Normal 9-82 [facility] Comment on above: Performed By: #### C MADM, CMP #### [facility] [address] [address] [address] Michael Murillo CBC AUTO DIFFon 06-24-2022 BASO # 0.0 103/ul Normal 0.0-0.1 [facility] Comment on above: Performed By: #### C BC #### [facility] [address] [place] [address] Dr. Michael Murillo Basophils/100 WBC (Bld) 0.5 % Normal 0.2-2.0 [facility] Comment on above: Performed By: #### C BC #### [facility] [address] [address] [address] Michael Murillo EO # 0.2 103/ul Normal 0.0-0.7 [facility] Comment on above: Performed By: #### C BC #### [facility] [address] [place] [address] Dr. Michael Murillo Eosinophils/100 WBC (Bld) 2.0 % Normal 0.9-7.0 [facility] Comment on above: Performed By: #### C BC #### [facility] [address] [place] [address] Dr. Michael Murillo Erythrocyte distribution width (RBC) [Ratio] 11.9 % Normal 11.0-15.0 [facility] Comment on above: Performed By: #### C BC #### [facility] [address] [place] [address] Dr. Michael Murillo Hematocrit (Bld) [Volume fraction] 40.8 % Normal 36.0-48.0 [facility] Comment on above: Performed By: #### C BC #### [facility] [address] [place] [address] Dr. Michael Murillo Hemoglobin (Bld) [Mass/Vol] 13.7 g/dL Normal 12.0-16.0 [facility] Comment on above: Performed By: #### C BC #### [facility] [address] [place] [address] Dr. Michael Murillo IG # 0.02 10e3/ul Normal 0.00-0.03 [facility] Comment on above: Performed By: #### C BC #### [facility] [address] [place] [address] Dr. Michael Murillo IG % 0.2 % Normal 0.0-0.5 [facility] Comment on above: Performed By: #### C BC #### [facility] [address] [place] [address] Dr. Michael Murillo LYMPH # 2.0 103/ul Normal 1.2-3.8 [facility] Comment on above: Performed By: #### C BC #### [facility] [address] [place] [address] Dr. Michael Murillo Lymphocytes/100 WBC (Bld) 24.3 % Normal 20.5-60.0 [facility] Comment on above: Performed By: #### C BC #### [facility] [address] [place] [address] Dr. Michael Murillo MANUAL DIFF REQ NO Normal [facility] Comment on above: Performed By: #### C BC #### [facility] [address] [address] [address] Michael Murillo MCH (RBC) [Entitic mass] 30.2 pg Normal 26.7-34.0 [facility] Comment on above: Performed By: #### C BC #### [facility] [address] [place] [address] Dr. Michael Murillo MCHC (RBC) [Mass/Vol] 33.6 g/dL Normal 29.9-35.2 [facility] Comment on above: Performed By: #### C BC #### [facility] [address] [place] [address] Dr. Michael Murillo MCV (RBC) [Entitic vol] 89.9 fL Normal 81.0-99.0 [facility] Comment on above: Performed By: #### C BC #### [facility] [address] [place] [address] Dr. Michael Murillo MONO # 1.0 103/ul Critically high 0.3-0.8 [facility] Comment on above: Performed By: #### C BC #### [facility] [address] [place] [address] Dr. Michael Murillo Monocytes/100 WBC (Bld) 11.9 % Normal 1.7-12.0 [facility] Comment on above: Performed By: #### C BC #### [facility] [address] [place] [address] Dr. Michael Murillo NEUT # 5.1 103/ul Normal 1.4-6.5 [facility] Comment on above: Performed By: #### C BC #### [facility] [address] [place] [address] Dr. Michael Murillo Neutrophils/100 WBC (Bld) 61.1 % Normal 43.0-75.0 [facility] Comment on above: Performed By: #### C BC #### [facility] [address] [place] [address] Dr. Michael Murillo Platelet mean volume (Bld) [Entitic vol] 9.8 fL Normal 9.5-13.5 [facility] Comment on above: Performed By: #### C BC #### [facility] [address] [place] [address] Dr. Michael Murillo PLT 250 103/ul Normal 150-450 [facility] Comment on above: Performed By: #### C BC #### [facility] [address] [place] [address] Dr. Michael Murilol RBC 4.54 106/ul Normal 4.20-5.40 [facility] Comment on above: Performed By: #### C BC #### [facility] [address] [place] [address] Dr. Micheal Murillo WBC 8.4 103/ul Normal 4.0-11.0 [facility] Comment on above: Performed By: #### C BC #### [facility] [address] [place] [address] Dr. Michael Murillo ER URINE PROFILEon 3 Bilirubin Ql (U) Negative Normal NEGATIVE [facility] Comment on above: Performed By: #### C ALCULI #### [facility] [address] [place] [address] Dr. Michael Murillo Clarity (U) CLEAR Normal CLEAR [facility] Comment on above: Performed By: #### C ALCULI #### [facility] [address] [place] [address] Dr. Michael Murillo Color (U) YELLOW Normal YELLOW [facility] Comment on above: Performed By: #### C ALCULI #### [facility] [address] [place] [address] Dr. Michael MUELLERDorota A micrscopic examination will be performed if indicated. Normal [facility] Comment on above: Performed By: #### C ALCULI #### [facility] [address] [place] [address] Dr. Michael Murillo Glucose Ql (U) Negative Normal NEGATIVE [facility] Comment on above: Performed By: #### C ALCULI #### [facility] [address] [place] [address] Dr. Michael Murillo Hemoglobin Ql (U) LARGE Abnormal NEGATIVE [facility] Comment on above: Performed By: #### C ALCULI #### [facility] [address] [place] [address] Dr. Michael Murillo Ketones Ql (U) Negative Normal NEGATIVE [facility] Comment on above: Performed By: #### C ALCULI #### [facility] [address] [place] [address] Dr. Michael Murillo LEUKOCYTES Negative Normal NEGATIVE [facility] Comment on above: Performed By: #### C ALCULI #### [facility] [address] [place] [address] Dr. Michael Murillo Nitrite Ql (U) Negative Normal NEGATIVE [facility] Comment on above: Performed By: #### C ALCULI #### [facility] [address] [place] [address] Dr. Michael Murillo pH (U) 8.0 [pH] Normal 5-9 [facility] Comment on above: Performed By: #### C ALCULI #### [facility] [address] [place] [address] Dr. Michael Murillo Protein (U) [Mass/Vol] 100 mg/dL Abnormal NEGATIVE/ TRACE [facility] Comment on above: Performed By: #### C ALCULI #### [facility] [address] [place] [address] Dr. Michael Murillo SPEC GRAVITY 1.015 Normal 1.005-<=1.025 [facility] Comment on above: Performed By: #### C ALCULI #### [facility] [address] [place] [address] Dr. Michael Murillo UR MICRO IND INDICATED Normal [facility] Comment on above: Performed By: #### C ALCULI #### [facility] [address] [place] [address] Dr. Michael Murillo Urobilinogen Qn (U) 0.2 {Kunal'U}/dL Normal 0.2 - 1. 0 [facility] Comment on above: Performed By: #### C ALCULI #### [facility] [address] [place] [address] Dr. Michael Murillo PROF 14(COMP METB)on 023 Albumin [Mass/Vol] 4.0 g/dL Normal 3.4-5.0 [facility] Comment on above: Performed By: #### C CHRISTOS, CMP #### [facility] [address] [address] [address] Michael Murillo Albumin/Globulin [Mass ratio] 1.1 {ratio} Normal [facility] Comment on above: Performed By: #### C CHRISTOS, CMP #### [facility] [address] [address] [address] Michael Murillo ALP [Catalytic activity/Vol] 104 U/L Normal 46-116 [facility] Comment on above: Performed By: #### C CHRISTOS, CMP #### [facility] [address] [address] [address] Michael Murillo ALT [Catalytic activity/Vol] 30 U/L Normal 14-59 [facility] Comment on above: Performed By: #### Saleem SHER, CMP #### [facility] [address] [address] [address] Michael Murillo Anion gap [Moles/Vol] 13.0 mmol/L Normal [facility] Comment on above: Performed By: #### C CHRISTOS, CMP #### [facility] [address] [address] [address] Michael Murillo AST [Catalytic activity/Vol] 23 U/L Normal 15-37 [facility] Comment on above: Performed By: #### Saleem SHER, CMP #### [facility] [address] [address] [address] Michael Murillo Bilirubin [Mass/Vol] 0.3 mg/dL Normal 0.2-1.0 [facility] Comment on above: Performed By: #### C CHRISTOS, CMP #### [facility] [address] [address] [address] Michael Murillo Calcium [Mass/Vol] 9.0 mg/dL Normal 8.5-10.1 [facility] Comment on above: Performed By: #### Saleem SHER, CMP #### [facility] [address] [address] [address] Michael Murillo Chloride [Moles/Vol] 101 mmol/L Normal 98-107 [facility] Comment on above: Performed By: #### C CHRISTOS, CMP #### [facility] [address] [address] [address] Michael Murillo CO2 [Moles/Vol] 29.2 mmol/L Normal 21.0-32.0 [facility] Comment on above: Performed By: #### C CHRISTOS, CMP #### [facility] [address] [address] [address] Michael Murillo Creatinine [Mass/Vol] 0.97 mg/dL Normal 0.55-1.02 [facility] Comment on above: Performed By: #### C CHRISTOS, CMP #### [facility] [address] [place] [address] Dr. Michael Murillo EGFR-AF GUATEMALAN >60 Normal >=60 [facility] Comment on above: Performed By: #### C CHRISTOS, CMP #### [facility] [address] [place] [address] Dr. Michael Murillo EGFR-NON AF GUATEMALAN 59 mL/min/1.73m2 Critically low >=60 [facility] Comment on above: Performed By: #### C CHRISTOS, CMP #### [facility] [address] [place] [address] Dr. Michael Murillo Globulin (S) [Mass/Vol] 3.5 g/dL Normal [facility] Comment on above: Performed By: #### C CHRISTOS, CMP #### [facility] [address] [place] [address] Dr. Michael Murillo Glucose [Mass/Vol] 106 mg/dL Normal 74-106 [facility] Comment on above: Performed By: #### C CHRISTOS, CMP #### [facility] [address] [address] [address] Michael Murillo Potassium [Moles/Vol] 4.2 mmol/L Normal 3.5-5.1 [facility] Comment on above: Performed By: #### C CHRISTOS, CMP #### [facility] [address] [place], [place] [id number] Dr. Michael Murillo Protein [Mass/Vol] 7.5 g/dL Normal 6.4-8.2 [facility] Comment on above: Performed By: #### C MADM, CMP #### [facility] [address] [place] [address] Dr. Michael Murillo Sodium [Moles/Vol] 139 mmol/L Normal 136-145 [facility] Comment on above: Performed By: #### C PAWELM, CMP #### [facility] [address] [place] [address] Dr. Michael Murillo Urea nitrogen [Mass/Vol] 19.0 mg/dL Critically high 7.0-18.0 [facility] Comment on above: Performed By: #### C CHRISTOS, CMP #### [facility] Laboratory [address] [place] [address] Dr. Michael Murillo Urea nitrogen/Creatinine [Mass ratio] 19.6 mg/mg Normal [facility] Comment on above: Performed By: #### C PAWELM, CMP #### [facility] [address] [place] [address] Dr. Michael Murillo URINE MICROSCOPIC ONLYon BACTERIA NONE SEEN Normal NONE SEEN [facility] Comment on above: Performed By: #### C ALCULI #### [facility] [address] [place] [address] Dr. Michael Murillo Bacteria identified Cx Nom (U) NOT INDICATED Normal [facility] Comment on above: Performed By: #### C ALCULI #### [facility] [address] [place] [address] Dr. Michael Murillo CAST NONE SEEN Normal NONE SEEN [facility] Comment on above: Performed By: #### C ALCULI #### [facility] [address] [place] [address] Dr. Michael Murillo Crystals LM Nom (Urine sed) NONE SEEN Normal NONE SEEN [facility] Comment on above: Performed By: #### C ALCULI #### [facility] [address] [place] [address] Dr. Michael Murillo Epithelial cells LM Ql (Urine sed) RARE Normal NONE SEEN /RARE [facility] Comment on above: Performed By: #### C ALCULI #### [facility] [address] [place] [address] Dr. Michael Murillo MUCOUS NONE SEEN Normal NONE SEEN [facility] Comment on above: Performed By: #### C ALCULI #### [facility] [address] [place] [address] Dr. Michael Murillo RBC (U) [#/Vol] /uL Abnormal 0-2 [facility] Comment on above: Performed By: #### C ALCULI #### [facility] [address] [place] [address] Dr. Michael Murillo WBC 0-2 Abnormal NONE SEEN [facility] Comment on above: Performed By: #### C ALCULI #### [facility] [address] [place] [address] Dr. Michael Murillo CBC AUTO DIFFon 06-19-2022 BASO # 0.1 103/ul Normal 0.0-0.1 [facility] Comment on above: Performed By: #### C ALCULI #### [facility] [address] [place] [address] Dr. Michael Murillo Basophils/100 WBC (Bld) 0.8 % Normal 0.2-2.0 [facility] Comment on above: Performed By: #### C ALCULI #### [facility] [address] [place] [address] Dr. Michael Murillo EO # 0.1 103/ul Normal 0.0-0.7 [facility] Comment on above: Performed By: #### C ALCULI #### [facility] [address] [place] [address] Dr. Michael Murillo Eosinophils/100 WBC (Bld) 1.4 % Normal 0.9-7.0 [facility] Comment on above: Performed By: #### C ALCULI #### [facility] [address] [place] [address] Dr. Michael Murillo Erythrocyte distribution width (RBC) [Ratio] 12.1 % Normal 11.0-15.0 [facility] Comment on above: Performed By: #### C ALCULI #### [facility] [address] [place] [address] Dr. Michael Murillo Hematocrit (Bld) [Volume fraction] 40.5 % Normal 36.0-48.0 [facility] Comment on above: Performed By: #### C ALCULI #### [facility] [address] [place] [address] Dr. Michael Murillo Hemoglobin (Bld) [Mass/Vol] 13.3 g/dL Normal 12.0-16.0 [facility] Comment on above: Performed By: #### C ALCULI #### [facility] [address] [place] [address] Dr. Michael Murillo IG # 0.02 10e3/ul Normal 0.00-0.03 [facility] Comment on above: Performed By: #### C ALCULI #### [facility] [address] [place] [address] Dr. Michael Murillo IG % 0.3 % Normal 0.0-0.5 [facility] Comment on above: Performed By: #### C ALCULI #### [facility] [address] [place] [address] Dr. Michael Murillo LYMPH # 1.7 103/ul Normal 1.2-3.8 [facility] Comment on above: Performed By: #### C ALCULI #### [facility] [address] [place] [address] Dr. Michael Murillo Lymphocytes/100 WBC (Bld) 25.4 % Normal 20.5-60.0 [facility] Comment on above: Performed By: #### C ALCULI #### [facility] [address] [place] [address] Dr. Michael Murillo MANUAL DIFF REQ NO Normal [facility] Comment on above: Performed By: #### C ALCULI #### [facility] [address] [place] [address] Dr. Michael Murillo MCH (RBC) [Entitic mass] 30.8 pg Normal 26.7-34.0 [facility] Comment on above: Performed By: #### C ALCULI #### [facility] [address] [place] [address] Dr. Michael Murillo MCHC (RBC) [Mass/Vol] 32.8 g/dL Normal 29.9-35.2 [facility] Comment on above: Performed By: #### C ALCULI #### [facility] [address] [place] [address] Dr. Michael Murillo MCV (RBC) [Entitic vol] 93.8 fL Normal 81.0-99.0 [facility] Comment on above: Performed By: #### C ALCULI #### [facility] [address] [place] [address] Dr. Michael Murillo MONO # 0.7 103/ul Normal 0.3-0.8 [facility] Comment on above: Performed By: #### C ALCULI #### [facility] [address] [place] [address] Dr. Michael Murillo Monocytes/100 WBC (Bld) 10.4 % Normal 1.7-12.0 [facility] Comment on above: Performed By: #### C ALCULI #### [facility] [address] [place] [address] Dr. Michael Murillo NEUT # 4.1 103/ul Normal 1.4-6.5 [facility] Comment on above: Performed By: #### C ALCULI #### [facility] [address] [place] [address] Dr. Michael Murillo Neutrophils/100 WBC (Bld) 61.7 % Normal 43.0-75.0 [facility] Comment on above: Performed By: #### C ALCULI #### [facility] [address] [place] [address] Dr. Michael Murillo Platelet mean volume (Bld) [Entitic vol] 10.0 fL Normal 9.5-13.5 [facility] Comment on above: Performed By: #### C ALCULI #### [facility] [address] [place] [address] Dr. Michael Murillo PLT 245 103/ul Normal 150-450 [facility] Comment on above: Performed By: #### C ALCULI #### [facility] [address] [place] [address] Dr. Michael Murillo RBC 4.32 106/ul Normal 4.20-5.40 [facility] Comment on above: Performed By: #### C ALCULI #### [facility] [address] [place] [address] Dr. Michael Murillo WBC 6.7 103/ul Normal 4.0-11.0 [facility] Comment on above: Performed By: #### C ALCULI #### [facility] [address] [place] [address] Dr. Michael Murillo PROF CHEM 8 (BAS METB)on Anion gap [Moles/Vol] 11.9 mmol/L Normal [facility] Comment on above: Performed By: #### C ALCULI #### [facility] [address] [place] [address] Dr. Michael Murillo Calcium [Mass/Vol] 9.1 mg/dL Normal 8.5-10.1 [facility] Comment on above: Performed By: #### C ALCULI #### [facility] [address] [place] [address] Dr. Michael Murillo Chloride [Moles/Vol] 100 mmol/L Normal 98-107 [facility] Comment on above: Performed By: #### C ALCULI #### [facility] [address] [place] [address] Dr. Michael Murillo CO2 [Moles/Vol] 28.3 mmol/L Normal 21.0-32.0 [facility] Comment on above: Performed By: #### C ALCULI #### [facility] [address] [place] [address] Dr. Michael Murillo Creatinine [Mass/Vol] 0.83 mg/dL Normal 0.55-1.02 [facility] Comment on above: Performed By: #### C ALCULI #### [facility] [address] [place] [address] Dr. Michael Murillo EGFR-AF GUATEMALAN >60 Normal >=60 [facility] Comment on above: Performed By: #### C ALCULI #### [facility] [address] [address] [address] Mcihael Murillo EGFR-NON AF GUATEMALAN >60 Normal >=60 [facility] Comment on above: Performed By: #### C ALCULI #### [facility] [address] [address] [address] Michael Murillo Glucose [Mass/Vol] 97 mg/dL Normal 74-106 [facility] Comment on above: Performed By: #### C ALCULI #### [facility] [address] [address] [address] Michael Murillo Potassium [Moles/Vol] 4.2 mmol/L Normal 3.5-5.1 [facility] Comment on above: Performed By: #### C ALCULI #### [facility] [address] [place] [address] Dr. Michael Murillo Sodium [Moles/Vol] 136 mmol/L Normal 136-145 [facility] Comment on above: Performed By: #### C ALCULI #### [facility] [address] [address] [address] Michael Murillo Urea nitrogen [Mass/Vol] 18.0 mg/dL Normal 7.0-18.0 [facility] Comment on above: Performed By: #### C ALCULI #### [facility] [address] [place] [address] Dr. Michael Murillo Urea nitrogen/Creatinine [Mass ratio] 21.7 mg/mg Normal [facility] Comment on above: Performed By: #### C ALCULI #### [facility] [address] [address] [address] Michael Murillo PROTIMEon 06-19-2022 INR Coag (PPP) [Relative time] {INR} Normal [facility] Comment on above: Performed By: #### C ALCULI #### [facility] [address] [place] [address] Dr. Michael Murillo INR GUIDELINES SEE BELOW Normal [facility] Comment on above: Result Comment: JORGE RED INR: 2.0 - 3.0 CONDITIONS NOT LISTED BELOW 2.5 - 3.5 FOR PROSTHETIC HEART VALVE REPLACEMENT 2.5 - 3.5 RECURRENT THROMBOSIS Performed By: #### C ALCULI #### [facility] [address] [address] [address] Michael Murillo PT Coag (PPP) [Time] 9.8 s Normal 9.0-11.6 [facility] Comment on above: Performed By: #### C ALCULI #### [facility] [address] [address] [address] Michael Murillo PTTon 06-19-2022 aPTT Coag (Bld) [Time] 28.9 s Normal 22.3-36.2 [facility] Comment on above: Performed By: #### C ALCULI #### [facility] [address] ABD/PELVIS WO CONon 05-15 CT ABD/PELVIS [...] BENI ORTIZ Date: 2022-05-15 13:08 Normal [facility] XR KUB 1 VIEWon 03-24-2022 XR KUB [...] by: JUDSON ENGLISH Date: 2022-03-24 06:57 Normal [facility] Vital Signs Date Time Vital Sign Value Performing Clinician Facility 09-05-2023 11:03-0400 Blood Pressure Location KAILASH FINLEYRY [facility] 09-05-2023 11:03-0400 Body temperature 98.78 [degF] KAILASH TOLEDO [facility] 09-05-2023 11:03-0400 Diastolic blood pressure 88 mm[Hg] KAILASH TRE [facility] 09-05-2023 11:03-0400 Heart rate 78 /min KAILASHMELLISSA FINLEYRY [facility] 09-05-2023 11:03-0400 Systolic blood pressure 144 mm[Hg] KAILASH TRE [facility] 06-05-2023 08:55-0500 Blood Pressure Location KAILASHMELLISSA FINLEYRY [facility] 06-05-2023 08:55-0500 Diastolic blood pressure 89 mm[Hg] KAILASH TRE [facility] 06-05-2023 08:55-0500 Heart rate 82 /min KAILASH TRE [facility] 06-05-2023 08:55-0500 Respiratory rate 16 /min KAILASH TRE [facility] 06-05-2023 08:55-0500 Systolic blood pressure 144 mm[Hg] KAILASH TRE [facility] 10-11-2022 09:53-0400 Blood Pressure Location Aubrie Lue [facility] 10-11-2022 09:53-0400 Diastolic blood pressure 78 mm[Hg] Aubrie Lue [facility] 10-11-2022 09:53-0400 Heart rate 68 /min Aubrie Lue [facility] 10-11-2022 09:53-0400 Respiratory rate 16 /min Aubrie Lue [facility] 10-11-2022 09:53-0400 Systolic blood pressure 140 mm[Hg] Aubrie Lue [facility] 06-16-2022 11:43-0500 Diastolic blood pressure 93 mm[Hg] Aubrie Lue [facility] 06-16-2022 11:43-0500 Mean blood pressure 119 mm[Hg] Aubrie Lue [facility] 06-16-2022 11:43-0500 Systolic blood pressure 172 mm[Hg] Aubrie Lue [facility] 06-16-2022 11:13-0500 Blood Pressure Location Aubrie Lue [facility] 06-16-2022 11:13-0500 Diastolic blood pressure 99 mm[Hg] Aubrie Lue [facility] 06-16-2022 11:13-0500 Heart rate 64 /min Aubrie Lue [facility] 06-16-2022 11:13-0500 Systolic blood pressure 166 mm[Hg] Aubrie Lue [facility] 03-24-2022 13:32-0500 Blood Pressure Location Aubrie Lue [facility] 03-24-2022 13:32-0500 Diastolic blood pressure 85 mm[Hg] Aubrie Lue [facility] 03-24-2022 13:32-0500 Heart rate 72 /min Aubrie Lue [facility] 03-24-2022 13:32-0500 Systolic blood pressure 170 mm[Hg] Aubrie Lue [facility] Encounters Encounter Date Encounter Type Care Provider Facility Start: 09-19-2023 End: 10-06-2023 Pre-admission assessment Aubrie M. Lue [facility] Start: 09-05-2023 End: 09-06-2023 ambulatory KAILASH E TRE Facility:[facility] Start: 09-05-2023 End: 09-06-2023 ambulatory KAILASH E TRE Facility:[facility] Start: 09-05-2023 End: 09-05-2023 Lab Drop off KAILASH TOLEDO [facility] Start: 09-05-2023 End: 09-05-2023 Patient encounter procedure KAILASH TOLEDO [facility] Start: 06-05-2023 End: 06-06-2023 ambulatory KAILASH Harry TRE Facility:[facility] Start: 06-05-2023 End: 06-05-2023 Lab Drop off KAILASH TOLEDO [facility] Start: 06-05-2023 End: 06-05-2023 Patient encounter procedure KAILASH TOLEDO [facility] Start: 10-30-2022 End: 10-31-2022 ambulatory Aubrie M. Lue Facility:[facility] Start: 10-30-2022 End: 10-30-2022 Patient encounter procedure Aubrie M. Lue [facility] Start: 10-25-2022 End: 10-26-2022 ambulatory Aubrie M. Lue Facility:CD:[id number] Start: 10-11-2022 End: 10-12-2022 amb[facility] Start: 10-11-2022 End: 10-11-2022 Patient encounter procedure Aubrie M. Lue [facility] Start: 10-10-2022 End: 10-11-2022 ambulatory AUBRIE M LUE . Facility: Start: 09-11-[address] PHILLIP UNGER . Facili ty:[facility] Start: 08-23-[address] PHILLIP UNGER . Facili ty:[facility] Start: 08-02-2022 End: 08-03-[address] PHILLIP UNGER . Facility:[facility] Start: 07-27-2022 End: 07-28-[address] PHILLIP UNGER . Facility:[facility] Start: 07-25-2022 Encounter for genera l adult medical examination without abnormal findings DR PHILLIP UNGER . [facility] Start: 07-21-2022 End: 07-22-[address] PHILLIP UNGER . Facility:[facility] Start: 07-21-2022 End: 07-22-2022 Encounter for general adult medical examination without abnormal findings DR PHILLIP UNGER . Facility:[facility] Start: 07-20-2022 End: 07-21-[address] PHILLIP UNGER . Facility:[facility] Start: 07-13-2022 ambulatory AUBRIE M JOEE . Facility: [facility] Start: 07-10-2022 End: 07-11-[address] PHILLIP UNGER . Facility:[facility] Start: 06-24-2022 End: 06-25-2022 ambulatory CHANEL DIAB . Facility:[facility] Start: 06-21-2022 Encounter for preprocedural cardiovascular examination AUBRIE M LUE . [facility] Start: 06-21-2022 Encounter for preprocedural laboratory examination AUBRIE M LUE . [facility] Start: 06-21-2022 End: 06-21-2022 ambulatory AUBRIE M LUE . Facility:[facility] Start: 06-19-2022 End: 06-20-2022 ambulatory AUBRIE M LUE . Facility:[facility] Start: 06-19-2022 End: 06-20-2022 Encounter for preprocedural laboratory examination AUBRIE M LUE . Facility:[facility] Start: 06-16-2022 End: 06-16-2022 Patient encounter procedure Aubrie M. Lue [facility] Start: 05-12-2022 End: 05-13-2022 ambulatory AUBRIE M LUE . Facility:[facility] Start: 04-12-2022 End: 04-12-2022 ambulatory AUBRIE M LUE . Facility:[facility] Start: 03-24-2022 End: 03-24-2022 Patient encounter procedure Aubrie Nolasco [facility] Start: 03-23-2022 End: 03-24-2022 ambulatory KAILASH TOLEDO Facility:[facility] Start: 01-17-[address] PHILLIP UNGER . Facili ty:[facility] Start: 08-09-2021 End: 08-09-2021 Patient encounter procedure Tracy Christian Jr. [facility] Procedures Date Procedure Procedure Detail Performing Clinician [...] Immunizations Immunization Date Immunization Notes [facility] influenza virus vacc ine, unspecified formulation KAILASH TOLEDO [facility] 02-13-2022 influenza, unspecifi ed formulation Aubrie Nolasco [facility] 03-10-2021 influenza, unspecifi ed formulation Aubrie Lue [facility] 03-09-2021 SARS-CoV-2 (COVID-19 ) mRNA-1273 vaccine Aubrie Lue [facility] 06-11-2020 SARS-CoV-2 (COVID-19 ) Ad26 vaccine, recombinant Tracy Christian Jr. [facility] 06-09-2020 SARS-CoV-2 (COVID-19 ) mRNA-1273 vaccine Aubrie Lue [facility] 05-21-2020 SARS-CoV-2 (COVID-19 ) Ad26 vaccine, recombinant Tracy Christian Jr. [facility] 05-19-2020 SARS-CoV-2 (COVID-19 ) mRNA-1273 vaccine Aubrie Lue [facility] 05-12-2020 SARS-CoV-2 (COVID-19 ) mRNA-1273 vaccine Aubrie Lue [facility] 02-25-2020 influenza virus vacc ine, unspecified formulation Aubrie Lue [facility] 03-01-2016 tetanus toxoid, redu ann diphtheria toxoid, and acellular pertussis vaccine, adsorbed Aubrie Lue [facility] 05-14-2011 pneumococcal polysaccharide vaccine, 23 valent Aubrie Lue [facility] Payers Date Payer Category Payer Unknown [id number] 2019 Unknown [id number] 1965 Unknown [id number] 2.16.84 [id number] 1963 Unknown [id number] 2.16.84 0.1.882124.3.579.2.593 1963 Unknown [id number] 2.16.84 0.1.538769.3.579.2.593 1963 Unknown [id number] 2.16.84 0.1.336295.3.579.2.593 1963 Unknown [id number] 2.16.84 0.1.669749.3.579.2.593 1963 Unknown [id number] 2.16.84 0.1.400454.3.579.2.593 1963 Unknown [id number] 2.16.84 0.1.087317.3.579.2.593 1963 Unknown [id number] 2.16.84 0.1.785214.3.579.2.593 1963 Unknown [id number] 2.16.84 0.1.888958.3.579.2.593 1963 Unknown [id number] 2.16.84 0.1.108798.3.579.2.593 1963 Unknown [id number] 2.16.84 0.1.427746.3.579.2.593 1963 Unknown [id number] 2.16.84 0.1.378330.3.579.2.593 1963 Unknown [id number] 2.16.84 0.1.498764.3.579.2.593 1963 Unknown [id number] 2.16.84 0.1.944245.3.579.2.593 1963 Unknown [id number] 2.16.84 0.1.438979.3.579.2.593 1963 Unknown [id number] 2.16.84 0.1.281442.3.579.2.593 1963 Unknown [id number] 2.16.8 40.1.620783.3.579.2.727 1963 Unknown [id number] 2.16.8 40.1.645495.3.579.2.727 1963 Unknown [id number] 2.16.8 40.1.595550.3.579.2.727 1963 Unknown [id number] 2.16.8 40.1.936442.3.579.2.727 1963 Unknown [id number] 2.16.8 40.1.207720.3.579.2.727 1963 Unknown [id number] 2.16.8 40.1.282367.3.579.2.727 1963 Unknown [id number] 2.16.8 40.1.244861.3.579.2.727 1959 Unknown [id number] 1959 Unknown [id number] Unknown Social History Date Type Detail Facility Start: 01-28-2021 End: 09-05-2023 Tobacco smoking status Never smoked tobacco (finding) [facility] Tobacco smoking status Never [facility] Sex Assigned At Female [facility] Functional Status Date Assessment Result Facility 09-05-2023 Functional Status N/A [facility] 06-05-2023 Functional Status N/A [facility] 10-30-2022 Functional Status N/A [facility] 10-11-2022 Functional Status N/A [facility] 06-16-2022 Functional Status N/A [facility] 03-24-2022 Functional Status N/A [facility] Clinical Notes 08-09-2021 to 10-03-2023 Note Date & Type Note Facility 10-03-2023 Note [id number] [facility] 09-05-2023 Evaluation + Plan note Diagnostic Tests PendingUrine Culture 09/05/23 [facility] 09-05-2023 Hospital Discharg e instructions Patient Education 09/05/2023 11:57:51 Injection Treatments for Urinary Incontinence, Care After Injection Treatments for Urinary Incontinence, Care After The following information offers guidance on how to care for yourself after your procedure. Your health care provider may also give you more specific instructions. If you have problems or questions, contact your health care provider. What can I expect after the procedure? After this procedure, it is common to have: Trouble passing urine. A small amount of blood in your urine. A burning or stinging sensation when passing urine. No improvement in your urinary incontinence for a few weeks. Follow these instructions at home: Catheter care If you have a urinary catheter in place, follow care instructions from your health care provider. You may be told to do the following things: Wash your hands with soap and water for at least 20 seconds before and after touching the catheter. Keep the area around the catheter clean and dry. Make sure that the catheter drainage bag is always below the level of your bladder. This stops urine from going back into the tubing and into your bladder. ?If using a bedside bag, do not lay it on the floor. If you cannot connect the bag to the side of your bed, hang the bag on a small stool or chair that is placed near the bed. ?If using a leg bag or belly bag, do not lie down with the bag attached to your leg or stomach. ?If using a leg bag, secure the tubing from your catheter to the leg bag with a small, stretchable wrap. This helps prevent the tubing from being pulled. Empty the catheter drainage bag when it is three-fourths full. Monitor the amount and color of your urine. Check to make sure that there are no twists, bends, or kinks in the catheter tube. Visit your health care provider to have the catheter removed. Medicines Take [id number] and prescription medicines only as told by your health care provider. If you were prescribed an antibiotic medicine, take it as told by your health care provider. Do not stop taking the antibiotic even if you start to feel better. General instructions Drink enough fluid to keep your urine pale yellow. Do not take baths, swim, or use a hot tub if you have a urinary catheter in place. If you were given a sedative during the procedure, it can affect you for several hours. Do not drive or operate machinery until your health care provider says that it is safe. Return to your normal activities as told by your health care provider. Ask your health care provider what activities are safe for you. Keep all follow-up visits. This is important. Contact a health care provider if you have: Blood in your urine for longer than a few days. Pain when passing urine that lasts for longer than a few days. A strong and uncomfortable urge to pass urine (urgency). Incontinence that does not improve after a few weeks. Get help right away if: You have a fever. You cannot urinate. You have cloudy or bad-smelling urine. You have pain when passing urine, and the pain is getting worse. You have pain in your lower back, also called the flank. You have a lot of blood in your urine. Summary After this procedure, it is common to have trouble passing urine and to have a small amount of blood in your urine. Your incontinence should improve in a few weeks. If you have a urinary catheter in place, follow care instructions from your health care provider. Return to your normal activities as told by your health care provider. This information is not intended to replace advice given to you by your health care provider. Make sure you discuss any questions you have with your health care provider. Document Revised: 12/16/2020 Document Reviewed: 12/03/2020 [employer] Patient Education 2022 [employer]. 09/05/2023 11:57:48 Injection Treatments for Urinary Incontinence Injection Treatments for Urinary Incontinence Urinary incontinence is a condition in which a person cannot control when he or she passes urine. The cause of this condition is usually a weak urinary sphincter. The urinary sphincter is the muscle that normally keeps urine from leaking. To treat this condition, a material called a bulking agent can be injected either into the urethra or into the bladder neck. The urethra is the part of the body that drains urine from the bladder. The bladder neck is the area where the bladder and urethra connect. The bulking agent is also called an implant. The implant narrows and strengthens the urethra to help control the passing of urine. Urinary incontinence is a common problem for women who have had pregnancies or certain surgeries, such as a hysterectomy, and for men who have had prostate surgery. Tell a health care provider about: Any allergies you have. All medicines you are taking, including vitamins, herbs, eye drops, creams, and lrrw-tnu-krpkchg medicines. Any problems you or family members have had with anesthetic medicines. Any blood disorders you have. Any surgeries you have had. Any medical conditions you have. Whether you are or may be . What are the risks? Generally, this is a safe procedure. However, problems may occur, including: Infection. Bleeding. Allergic reaction to medicines or to the bulking agent. Damage to the urethra or bladder. Difficulty passing urine. A strong and uncomfortable urge to pass urine (urgency). Pain when passing urine or having sex. Failure of the procedure to treat incontinence. A need to repeat the procedure at a later time. What happens before the procedure? Staying hydrated Follow instructions from your health care provider about hydration, which may include: Up to 2 hours before the procedure you may continue to drink clear liquids, such as water, clear fruit juice, black coffee, and plain tea. Eating and drinking restrictions Follow instructions from your health care provider about eating and drinking, which may include: 8 hours before the procedure stop eating heavy meals or foods, such as meat, fried foods, or fatty foods. 6 hours before the procedure stop eating light meals or foods, such as toast or cereal. 6 hours before the procedure stop drinking milk or drinks that contain milk. 2 hours before the procedure stop drinking clear liquids. Medicines Ask your health care provider about: Changing or stopping your regular medicines. This is especially important if you are taking diabetes medicines or blood thinners. Taking medicines such as aspirin and ibuprofen. These medicines can thin your blood. Do not take these medicines unless your health care provider tells you to take them. Taking hbqd-qvq-vgdvuep medicines, vitamins, herbs, and supplements. General instructions Ask your health care provider what steps will be taken to help prevent infection. These steps may include: ?Removing hair at the surgery site. ?Washing skin with a germ-killing soap. ?Taking antibiotic medicine. You may need to have a series of tests done to learn more about your bladder control (urodynamic testing). Plan to have a responsible adult take you home from the hospital or clinic. Plan to have a responsible adult care for you for the time you are told after you leave the hospital or clinic. This is important. What happens during the procedure? An IV may be inserted into one of your veins. You may be given one or more of the following: ?A medicine to help you relax (sedative). ?A medicine to numb your urethra and bladder area (local anesthetic). ?A medicine to make you fall asleep (general anesthetic). A small, thin tube (catheter) may be inserted through your urethra into your bladder. A long, thin tube with a light and camera (cystoscope) will be placed into your urethra and moved up toward your bladder. The camera sends images to a screen in the room. These images will be used to help guide the procedure. A long needle will be threaded through the cystoscope. Bulking material will be injected into the tissues around your urethra, near your urinary sphincter. The cystoscope and needle will be removed. The procedure may vary among health care providers and hospitals. What happens after the procedure? Your blood pressure, heart rate, breathing rate, and blood oxygen level will be monitored until you leave the hospital or clinic. If you have a catheter in your urethra, it will be removed to see if you can pass urine. If you have trouble passing urine, a new catheter may be inserted and left in place for a few days. Your bladder may be filled with fluid through your catheter to check for any problems in the bladder. You may be given antibiotic medicine to take at home. If you were given a sedative during the procedure, it can affect you for several hours. Do not drive or operate machinery until your health care provider says that it is safe. Summary Urinary incontinence is when you cannot control when you pass urine. The muscle that normally keeps urine from leaking may be weak. Urinary incontinence is a common problem for women who have had pregnancies or certain surgeries, such as a hysterectomy, and for men who have had prostate surgery. To treat this condition, a bulking agent can be injected either into the urethra or into the bladder neck. This information is not intended to replace advice given to you by your health care provider. Make sure you discuss any questions you have with your health care provider. Document Revised: 12/03/2020 Document Reviewed: 12/03/2020 [employer] Patient Education 2022 [employer]. Follow Up Care 06/13/2023 12:45:40 With:Gaurav MADRID, Aubrie Cho, URL, URO Address: [address], [place] [address] [phone] When: Unknown Comments:sched Bulk[facility] 06-05-2023 Evaluation + Plan note Diagnostic Tests PendingUrine Culture 06/05/23 [facility] 06-05-2023 Hospital Discharg e instructions Patient Education 06/05/2023 09:29:56 Flank Pain, Adult, Znld-iv-Mbvw Flank Pain, Adult Flank pain is pain [...] Rest as told by your doctor. Take xnfm-ocu-ahpeaqd and prescription medicines only as told by [...] provider. Document Revised: 07/11/2021 Document Reviewed: 07/11/2021 [employer] Patient Education 2022 [employer]. Follow Up Care 05/30/2023 14:24:53 With:TRE KENDALL, KAILASH Harry, URL Address: [address] [facility] [place] [address] When: Unknown [facility] 10-30-2022 Evaluation + Plan note Extrac mike from: Title:- Clinic HOPD Note Author:Aubrie Nolasco MD. Date:10/30/22 Impression and Plan Assessment and Plan: Diagnosis: Intrinsic sphincter deficiency (ISD) (DID90-VX N36.42, Discharge, Medical), Mixed incontinence (YBJ35-WG N39.46, Working, Medical), Kidney stone (LRA97-YQ N20.0, Discharge, Medical). 57 year old female [...] dietary modifications -Follow-up stone analysis results from [facility] -Patient has Litholink kit at home. She [...] and procedures in caring for the patient. [facility]06-19-2023 Note [id number]:[id number] 10-30-2022 NoteCystoscopy with Stent Removal ? [...] if you have a fever over 100 degrees.[facility] 10-30-2022 Hospital Discharge instructions Patient Education [...] Up Care 10/27/2022 11:14:28 With:Aubrie Nolasco Address: [address], [facility] [place] [address] [phone] Business (1) [address], [address] [place] [address]- [phone] Business (1) When: Unknown Comments:Office will schedule Bulkamid and follow up renal US in 6 wks [facility]05-31-2023 Hospital Discharge instructions Patient Education 10/11/2022 [...] (electrical nerve stimulation). ?For women, using a clinical specialist medical device to prevent urine leaks. This is a [...] right after experiencing incontinence. General instructions Take rred-vrf-xqgzsdm and prescription medicines only as told by [...] important. Where to find more information National [place] of Diabetes and Digestive and Kidney Diseases: www.niddk.nih.gov [employer]: www.urologyhealth.org Contact a health care [...] provider. Document Revised: 12/03/2020 Document Reviewed: 12/03/2020 [employer] Patient Education 2022 [employer]. Follow Up Care 06/26/2022 12:58:55 With:Gaurav MADRID, Aubrie Cho, URL, URO Address: [address], [place] [phone] When: Unknown Comments:sched rt uretero w/ possible stent [facility] 05-31-2023 NotePROCEDURE: XR KUB 1 VIEW DATE: [...] Electronically authenticated by: CLARISSA VILLALTA Date: 2022-10-11 07:26[facility]03-22-2023 NotePROCEDURE: XR ANKLE LT MIN 3 [...] authenticated by: BENI ORTIZ Date: 2022-08-02 11:20[id number] NotePROCEDURE: XR ANKLE LT MIN 3 V [...] Electronically authenticated by: JUDSON ENGLISH Date: 2022-07-27 16:35[id number] Hospital Discharge instructions Patient Education 06/16/2022 12:32:50 [...] include: ?Spinach. ?Rhubarb. ?Beets. ?Potato chips and kinyarwanda fries. ?Nuts. If you regularly take a diuretic medicine, make sure to eat at least 1 2 fruits or vegetables high in potassium each day. These include: ?Avocado. ?Banana. ?[place], prune, carrot, or tomato juice. ?Baked potato. [...] Casseroles. Pizza. Lasagna. Frozen meals. Potato chips. Slovak fries. Summary You can reduce your risk [...] 08/25/2011 Document Revised: 08/20/2019 Document Reviewed: 04/10/2017 [employer] Patient Education 2020 [employer]. Follow Up Care 06/15/2022 09:49:16 With:Gaurav MADRID, AMBER Greco, URO Address: When: Unknown [facility] 11-11-2022 Hospital Discharge instructions Patient Education 03/24/2022 14:51:05 Kidney Stones, Ucet-ku-Rfer Kidney Stones Kidney stones are rock-like masses [...] Follow these instructions at home: Medicines Take exyf-dya-mwlpztb and prescription medicines only as told by [...] 10/16/2008 Document Revised: 09/16/2019 Document Reviewed: 09/16/2019 [employer] Patient Education 2019 [employer]. Follow Up Care 03/21/2022 12:53:12 With:Gaurav MADRID, AMBER Greco, URO Address: When: Unknown [facility] 03-29-2022 Hospital Discharge instructions Patient Education [...] fried and sweet foods. General instructions Take aidr-hdm-balslqa and prescription medicines only as told by [...] 02/24/2010 Document Revised: 08/21/2019 Document Reviewed: 05/16/2018 [employer] Patient Education 2020 [employer]. Follow Up Care 05/10/2021 12:57:15 With:Tracy Christian Jr., MD, URO Address: When:3 months Comments:increased VESIcare/renal us and pvr [facility] evaluation + Plan note Future Appointments Appointment Date:11/08/2021 09:45:00 AM Scheduled Provider:Tracy Christian Jr., MD Location:[facility] Appointment Type:URO Office Visit [facility] evaluation + Plan note Future Appointments Appointment Date:10/23/2023 10:45:00 AM Scheduled Provider: Location[facility] N[facility] No data available for this section [facility] Hospital Discharge instructions No data available for this section [facility] No data available for this section [facility] Summary Purpose Family History No Family History Records Found No data available for this section No data available for this section No data available for this section No data available for this section No Family History Records Found No data available for this section Advance Directives No Advanced Directives Records FoundNo Advanced Directives Records Found Additional Source Comments Patient Care team informatio n (unrecognized section and content) Personnel Name: Phillip Unger MD Address: Address: [address] [place] [address] Personnel Name: Phillip Unger MD Address: Address: [address] [place], [place] [id number] Personnel Name: Phillip Unger MD Address: Address: [address] [place], [place] [id number] Personnel Name: Phillip Unger MD Address: Address: [address] [place] [address] Personnel Name: Phillip Unger MD Address: Address: [address] [place] [address] Personnel Name: Phillip Unger MD Address: Address: [address] [place], [place] [id number]- Personnel Name: Phillip Unger MD Address: Address: [address] [place] [address] [place]INEZ [address]- Personnel Name: Phillip Unger MD Address: Address: [address] [place] [address] [place] [address]- Personnel Name: Phillip Unger MD Address: Address: [address] [place] [address] [place] [id number]- INFORMATION SOURCE (unrecogn ized section and content) DATE CREATED AUTHOR 10/21/2022 [facility] DATE CREATED AUTHOR AUTHOR'S ORGANIZ ATION 10/05/2023 [facility] FOR RECORDS PERTAINING TO PATIENTS [...] BE BASED ON THE PRIMARY CLINICAL RECORDS. [facility] [employer] [facility]. provides no warranty or guarantee of the accuracy or completeness of information in this document.
[2023-10-24 16:11] LABS: Age Gdln ACOG Testing Note (.); HPV Aptima Negative (Negative); IGP, Aptima HPV, rfx 16/18,45 Note (.)
== END 2023-10-18 19:23 | disposition home or self-care (01) ==
LOC: LAB 19:22
PROVIDERS: PCP Family Medicine; Visit Provider Obstetrics & Gynecology
DX: Z01.419 Encounter for gynecological examination (general) (routine) without abnormal findings (principal)
CPT/HCPCS: 87624; 88175

== ENCOUNTER 2023-11-01 13:45 | Emergency (ER) | payer OTHER, BC, SELFPAY ==
[2023-11-01 13:59] VITALS: BP 184/99; PULSE 85; TEMP 37.1; O2SAT 98; BMI 26.8
--- NOTE | 2023-11-01 14:10 | XR_ITS ---
The [address] [address] Patient Name: CARMELO CHUNG MRN: [id number] date: 1965 Sex: F Assigned Patient Location: ER Current Patient Location: ED.MAIN Accession/Order Number: [id number] Exam Date: 11/01/2023 14:22 Report Date: 11/01/2023 15:07 At the request of: ANTONINO CRUZ Procedure: XR hand LT min 3V IMAGES REVIEWED: XR hand LT min 3V COMPARISON: None available. CLINICAL INDICATION: Attention distal middle finger, shut in door FINDINGS/IMPRESSION: No evidence of acute osseous abnormality of the left hand/third digit. Electronically authenticated by: MCKAYLA LERMA Date: 11/01/2023 15:07
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
== END 2023-11-01 15:23 | disposition home or self-care (01) ==
PROVIDERS: Emergency Provider Emergency Medicine; PCP Family Medicine
DX: S60.032A Contusion of left middle finger without damage to nail, initial encounter (principal); W23.0XXA Caught, crushed, jammed, or pinched between moving objects, initial encounter
CPT/HCPCS: 29130; 73130; 99283

== ENCOUNTER 2024-08-16 09:43 | Outpatient (OUT) | payer BC, SELFPAY ==
--- OUTSIDE RECORDS SUMMARY | 2024-08-16 09:47 | XMS_ITS | CCD ---
Author Organization [facility] Care Team Providers Care Med Surg Rn Name Role Phone Phillip Bruner Primary Care Physician LUE ., AUBRIE M Attending Unavailable LUE ., AUBRIE M Admitting Unavailable HOY ., DR FISHER Primary Care Unavailable DIAB ., CHANEL Attending Unavailable HOY ., DR FISHER Primary Care Unavailable SHIRLENE FRANCK Consulting Unavailable DIAB ., CHANEL Admitting [...] Primary Care Unavailable CLARISSA VILLALTA Consulting Unavailable HOLiz .DR FISHER Primary Care Unavailable DR JUDSON ENGLISH Consulting Unavailable ANABEL LOPEZ Attending Unavailable ANABEL LOPEZ Admitting Unavailable ANABEL LOPEZ Consulting Unavailable ZOHREH .DR FISHER Consulting Unavailable HOY .DR FISHER Attending Unavailable HOY .DR FISHER Admitting Unavailable HOLiz ., DR FISHER Primary Care Unavailable NADEGE GANNON Consulting Unavailable KAILASH TOLEDO Attending Unavailable KAILASH TOLEDO Admitting Unavailable HOY ., DR FISHER Primary Care Unavailable TAMEKA, DR JUDSON Valera Consulting Unavailable KAILASH TOLEDO Consulting Unavailable HOY ., DR FISHER Primary Care Unavailable GINO ROE ., DR TRACY Sexton Attending Unavaila ble CHRISTIAN JR ., DR TRACY Sexton Admitting Unavaila ble HOY ., DR FISHER Primary Care Unavailable MIRZAANDER, EUGENIO D Attending Unavailable HIGHLANDER, PETER D Admitting Unavailable HOY ., DR FISHER Consulting Unavailable HOY ., DR FISHER Attending Unavailable HOY ., DR FISHER Admitting Unavailable HOY ., DR FISHER Primary Care Unavailable HOY ., DR FISHER Consulting Unavailable HOY ., DR FISHER Attending Unavailable HOY ., DR FISHER Admitting Unavailable HOY ., DR FISHER Primary Care Unavailable [place], DR BENI Lugo Consulting Unavailable LUE .AUBRIE Attending Unavailable LUE ., AUBRIE M Admitting Unavailable [place], DR BENI Lugo Consulting Unavailable HOY ., DR FISHER Primary Care Unavailable LUE .AUBRIE Consulting Unavailable HOY ., DR FISHER Primary Care Unavailable [place], DR BENI Lugo Consulting Unavailable HIGHLANDER, PETER D Attending Unavailable HIGHLANDER, PETER D Admitting Unavailable HIGHLANDER, PETER D Consulting Unavailable Phillip Bruner MD Primary Care Provider [phone] ADI NOLASCO Attending Unavailable MCKAYLA ERICKSON Attending Unavailable MCKAYLA ERICKSON Referring Unavailable Phillip Bruner MD Primary Care Provider [phone] DASIA FLOWERS Attending Unavailable HOY, PHILLIP M Referring Unavailable HOY, PHILLIP M Primary Care Unavailable DASIA FLOWERS Attending Unavailable HOY, PHILLIP M Referring Unavailable HOY, PHILLIP M Primary Care Unavailable DASIA FLOWERS Attending Unavailable HOY, PHILLIP M Referring Unavailable HOY, PHILLIP M Primary Care Unavailable Lue, Aubrie M. Admitting Unavailable Lue, Aubrie M. Attending Unavailable Lue, Aubrie M. Referring Unavailable TRE, KAILASH E Attending Unavailable TRE, KAILASH E Admitting Unavailable Lue, Aubrie M. Admitting Unavailable Lue, Aubrie M. Attending Unavailable Lue, Aubrie M. Referring Unavailable TRE, KAILASH E Attending Unavailable Orzech, Elana X Attending Unavailable Orzech, Elana X Admitting Unavailable Orzech, Elana X Attending Unavailable Aubrie Nolasco Referring Unavailable Aubrie Nolasco Admitting Unavailable Aubrie Nolasco Attending Unavailable Aubrie Nolasco Attending Unavailable Allergies Allergy Classification Reported Allergen(s) Allergy Type Date of Onset Reaction(s) Facility (2 sources) No Known Medication Allergies; 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: [No Known Medication Allergies] Propensity to adverse reactions (disorder) [facility] Medications Current Medications Medication Drug Class(es) Dates Sig (Normalized) Sig (Original) acetaminophen 325 mg / HYDROcodone bitartrate 5 mg oral tablet (2 sources) Opioid Agonist Start: 01-13-2015 take 1 tablet by mouth every six hours as needed HYDROcodone-acetam inophen (NORCO) 5-325 mg per tablet Take 1 tablet by mouth every 6 hours as needed. 15 tablet 0 04/14/2015 Active ALPRAZolam 0.25 mg oral tablet (2 sources) Benzodiazepine Start: 03-24-2022 take 4 tablets by mouth every eight hours Xanax 0.25 mg Tab mg tab(s), Oral, q8hr, Refills(s) 0 Start Date: 03/24/22 Status: Ordered amitriptyline hydrochloride 25 mg oral tablet (1 source) Tricyclic Antidepressant take 1 tablet by mouth once daily at bedtime amitriptyline (ELAVIL) 25 mg tablet Take 25 mg by mouth daily at bedtime. Active ARIPiprazole 2 mg oral tablet (11 sources) Atypical Antipsychotic Start: 06-16-2022 take 1 mg by mouth once daily Abilify 2 mg Tab mg tab(s), Oral, Daily Start Date: 06/16/22 Status: Ordered aspirin 81 mg delayed release oral tablet (6 sources) Platelet Aggregation Inhibitor, Nonsteroidal Anti-inflammatory Drug Start: 10-19-2023 take 1 tablet by mouth once daily aspirin 81 mg Oral EC Tab 81 mg = 1 tab(s), Oral, Daily, Prophylaxis Start Date: 10/19/23 Status: Ordered Start: 08-09-2021 take 1 tablet by robyn th once daily Aspirin 81 mg Tab-Chew 81 mg = 1 tab(s), Oral, Daily, Refills(s) 0 Start Date: 08/09/21 Status: Ordered Aspirin 81 mg Tab-Chew (8 sources) Start: 08-09-2021 take 1 tablet by mouth once daily Aspirin 81 mg Tab-Chew 81 mg = 1 tab(s), Oral, Daily, Refills(s) 0 Start Date: 08/09/21 Status: Ordered celecoxib 200 mg oral capsule (6 sources) Nonsteroidal Anti-inflammatory Drug Start: 11-02-2022 celecoxib (CeleBREX) 200 MG capsule 1 (one) time each day at the same time 11/02/2022 Active cholecalciferol 0.05 mg oral capsule (4 sources) Vitamin D Cholecalciferol, Vitamin D3, (VITAMIN D-3) 2,000 unit cap Take by mouth once daily. Active 24 hr desvenlafaxine succinate 50 mg extended release oral tablet (2 sources) Serotonin and Norepinephrine Reuptake Inhibitor Start: 04-29-2024 take 1 tablet by mouth every twenty-four hours in the morning desvenlafaxine (Pristiq) 50 MG 24 hr tablet Take 50 mg by mouth in the morning. 04/29/2024 Active diazePAM 10 mg oral tablet (1 source) Benzodiazepine Start: 03-24-2022 take 1 tablet by mouth once as needed for anxiety Valium 10 mg Tab 10 mg = 1 tab(s), Oral, Once, PRN for anxiety, Take one hour before procedure, # 1 tab(s), Refills(s) 0, Pharmacy: [facility] [id number], 161, cm, 03/24/22 13:34:00 EST, Height/Length Dosing, 65, kg, 05/10/21 12:23:00 EST, Weight Dosing Start Date: 03/24/22 Status: Ordered docusate sodium 100 mg oral capsule (2 sources) Start: 07-06-2014 take 1 capsule by mouth twice daily docusate sodium (COLACE) 100 mg capsule Take 1 capsule by mouth twice daily. 30 capsule 0 01/13/2015 Active escitalopram 20 mg oral tablet (17 sources) Serotonin Reuptake Inhibitor Start: 03-14-2023 take 1 tablet by mouth once daily escitalopram (Lexapro) 20 MG tablet Take 20 mg by mouth Daily 03/14/2023 Active Start: 06-03-2020 take 1 tablet by robyn th once daily Lexapro 10 mg Tab 10 mg = 1 tab(s), Oral, Daily, Depression Start Date: 06/03/20 Status: Ordered estradiol 0.1 mg/ml vaginal cream (17 sources) Estrogen Start: 10-18-2023 estradiol (Est race) 0.1 MG/GM vaginal cream Indications: Postmenopausal state , Pain in female genitalia on intercourse Apply 1/2 APPLICATOR daily for 2 weeks; then twice weekly thereafter. 42.5 g 3 10/18/2023 Active Start: 06-16-2022 Estrace 0.1 mg /g Cream See Instructions, 42.5 gm, Refill(s) 3, Apply pea sized amount to urethra/vagina 3-5x/week x 2 weeks, then 2x weekly thereafter, [facility] [id number], 161, cm, 06/16/22 11:27:00 EST, Height/Length Dosing, 70.1, kg, 06/16/22 11:27:00 EST, Weight Dosing Start Date: 06/16/22 Status: Ordered Start: 01-28-2021 Estrace 0.1 mg /g Cream 1 gm, Topical, MonWedFri, 42.5 gm, Refill(s) 11, Apply peasize amount to urethral/vaginal area M-W-F for two weeks. Then twice weekly after., [facility] #[id number], 163, cm, 01/28/21 9:13:00 EDT, Height/Length Dosing, 65, kg, 01/28/21 9:13:00 EDT, Weigh... Start Date: 01/28/21 Status: Ordered Start: 01-28-2021 Estrace 0.1 mg /g Cream 1 gm, Topical, MonWedFri, 42.5 gm, Refill(s) 11, Apply peasize amount to urethral/vaginal area M-W-F for two weeks. Then twice weekly after., [facility] #[id number], 163, cm, 01/28/21 9:13:00 EDT, Height/Length Dosing, 65, kg, 01/28/21 9:13:00 EDT, Weigh... Start Date: 01/28/21 Status: Ordered estrogens, conjugated (correction) 0.3 mg oral tablet (1 source) Estrogen Start: 01-06-2015 take 1 tablet by mouth once daily estrogens conjugated (PREMARIN) 0.3 mg tablet Take 1 tablet by mouth once daily. 0 01/06/2015 Active hydroCHLOROthiazide 12.5 mg oral capsule (13 sources) Thiazide Diuretic Start: 10-11-2022 take 1 capsule by mouth once daily hydrochlorothiazide 12.5 mg Cap 12.5 mg = 1 cap(s), Oral, Daily, Refills(s) 0 Start Date: 10/11/22 Status: Ordered Start: 08-10-2020 take 1 tablet by robyn th once daily hydrochlorothiazide 25 mg oral tablet 25 mg = 1 tab(s), Oral, Daily, # 90 tab(s), Refills(s) 3, Pharmacy: [facility]/pharmacy #[id number], 163, cm, 08/10/20 15:02:00 EDT, Height/Length Dosing, 65.5, kg, 08/10/20 15:02:00 EDT, Weight Dosing Start Date: 08/10/20 Status: Ordered Start: 11-16-2014 take 1 tablet by robyn th twice daily hydrochlorothiazide (HYDRODIURIL, ESIDRIX) 25 mg tablet Take 1 tablet by mouth twice daily. 60 tablet 6 11/16/2014 Active ibuprofen 600 mg oral tablet (2 sources) Nonsteroidal Anti-inflammatory Drug Start: 04-14-2015 take 1 tablet by mouth every six hours as needed ibuprofen (MOTRIN) 600 mg tablet Take 1 tablet by mouth every 6 hours as needed for Pain. 28 tablet 0 04/14/2015 Active metaproterenol (2 sources) beta2-Adrenergic Agonist Start: 03-24-2022 take 1 mg by mouth every six hours metaproterenol mg, Oral, q6hr, Refills(s) 0 Start Date: 03/24/22 Status: Ordered metoprolol tartrate 50 mg oral tablet (3 sources) beta-Adrenergic Lisette Lopressor 50 MG tablet 1 (one) time each day at the same time Active 24 hr mirabegron 50 mg extended release oral tablet (5 sources) beta3-Adrenergic Agonist Start: 06-16-2022 End: 05-30-2024 take 1 tablet by mouth once daily Myrbetriq 50 mg oral tablet, extended release 50 mg = 1 tab(s), Oral, Daily, X 30 day(s), # 30 tab(s), Refills(s) 11, Pharmacy: [facility] [id number], 161, cm, 06/05/23 9:09:00 EST, Height/Length Dosing, 78, kg, 06/05/23 9:09:00 EST, Weight Dosing Start Date: 06/05/23 Stop Date: 05/30/24 Status: Ordered mirtazapine 30 mg oral tablet (7 sources) Start: 04-02-2024 take 1 tablet by mouth at bedtime mirtazapine (Remeron) 30 MG tablet Take 30 mg by mouth at bedtime 04/02/2024 Active Start: 06-16-2022 take 1 mg by mouth o nce daily at bedtime Remeron 30 mg Tab mg tab(s), Oral, Once a day (at bedtime) Start Date: 06/16/22 Status: Ordered nitrofurantoin, macrocrystals 25 mg / nitrofurantoin, monohydrate 75 mg oral capsule (1 source) Nitrofuran Antibacterial Start: 10-23-2023 End: 10-28-2023 take 1 capsule by mouth twice daily Macrobid 100 mg Cap 100 mg = 1 cap(s), Oral, BID, X 5 day(s), # 10 cap(s), Refills(s) 0, Pharmacy: [facility] [id number], 163.8, cm, 10/19/23 14:16:00 EDT, Height/Length Dosing, 75.3, kg, 10/19/23 14:16:00 EDT, Weight Dosing Start Date: 10/23/23 Stop Date: 10/28/23 Status: Ordered oxybutynin chloride 5 mg oral tablet (1 source) Cholinergic Muscarinic Antagonist Start: 07-07-2014 End: 06-06-2024 oxybutynin (DITROPAN) 5 mg tablet Take 5 mg by mouth as needed. 07/07/2014 06/06/2024 Discontinued solifenacin succinate 5 mg oral tablet (1 source) Cholinergic Muscarinic Antagonist Start: 06-14-2021 take 1 tablet by mouth once daily Vesicare 5 mg Tab 5 mg = 1 tab(s), Oral, Daily, # 30 tab(s), Refills(s) 2, Pharmacy: [facility]/pharmacy #[id number], 163, cm, 01/28/21 9:13:00 EDT, Height/Length Dosing, 65, kg, 05/10/21 12:23:00 EST, Weight Dosing Start Date: 06/14/21 Status: Ordered tamsulosin hydrochloride 0.4 mg oral capsule (1 source) alpha-Adrenergic Lisette Start: 06-29-2014 take 1 capsule by mouth once daily at bedtime tamsulosin (FLOMAX) 0.4 mg cp24 Take 1 capsule by mouth daily at bedtime. 30 capsule 1 06/29/2014 Active venlafaxine 37.5 mg oral tablet (1 source) Serotonin and Norepinephrine Reuptake Inhibitor take 2 tablets by mouth once daily venlafaxine (EFFEXOR) 37.5 mg tablet Take 75 mg by mouth once daily. Active Vitamin D (9 sources) Start: 03-24-2022 Vitamin D International_Unit , Oral, qWeek, Refills(s) 0 Start Date: 03/24/22 Status: Ordered Vitamin D3 (4 sources) Start: 10-19-2023 take 50 ug by mouth once daily Vitamin D3 50 mcg, Oral, Daily, Refills(s) 0, Prophylaxis Start Date: 10/19/23 Status: Ordered Completed/Discontinued Medications Medication Drug Class(es) Dates Sig (Normalized) Sig (Original) cephalexin 500 mg oral capsule (1 source) Cephalosporin Antibacterial Start: 03-24-2022 take 1 capsule by mouth every twelve hours Keflex 500 mg Cap 500 mg = 1 cap(s), Oral, q12hr, Take one cap morning of the procedure and one cap 12 hours later, # 2 cap(s), Refills(s) 0, Pharmacy: [facility] [id number], 161, cm, 03/24/22 13:34:00 EST, Height/Length Dosing, 65, kg, 05/10/21 12:23:00 EST, Weight... 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 Essential hypertension (1 source) Essential (primary) hypertension; 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: [ESSENTIAL PRIMARY HYPERTENSION] Onset: 06-27-2022 Chronic Fracture of lower limb (4 sources) Displaced avulsion fracture (chip fracture) of left talus, initial encounter for closed fracture; 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: [DSPL AVUL FX LT TALUS INIT CLOS FX] Onset: 08-02-2022 Episodic Genitourinary congenital anomalies (5 sources) Medullary cystic kidney; 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] Onset: 06-28-2022 10-19-2023 Chronic Genitourinary symptoms and ill-defined conditions (20 sources) Incontinence; 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: [Urinary incontinence] Onset: 06-11-2014 06-03-2020 Chronic Hyperplasia of prostate (14 sources) Benign prostatic hypertrophy with outflow obstruction 08-10-2020 Chronic Mood disorders (4 sources) Severe recurrent major depression without psychotic features; 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: [Major depressive disorder, recurrent severe without psychotic features] Onset: 05-10-2017 04-28-2024 Chronic Nutritional deficiencies (1 source) Vitamin D deficiency, unspecified; 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: [VITAMIN D DEFICIENCY UNSPECIFIED] Onset: 07-25-2022 Chronic Osteoarthritis (5 sources) Primary osteoarthritis, left ankle and foot; 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: [Unspecified osteoarthritis, unspecified site] Onset: 06-27-2022 Chronic Other connective tissue disease (1 source) Myalgia, unspecified site; 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: [MYALGIA UNSPECIFIED SITE] Onset: 07-25-2022 Episodic Other diseases of bladder and urethra (7 sources) Detrusor overactivity; 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: [Overactive bladder] Onset: 08-09-2021 Chronic Other diseases of bladder and urethra (14 sources) Contracture of bladder neck 08-10-2020 Chronic Other diseases of bladder and urethra (14 sources) Overactive bladder 05-10-2021 Chronic Other diseases of bladder and urethra (1 source) Overactive bladder; 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: [OVERACTIVE BLADDER] Onset: 06-28-2022 Chronic Other diseases of bladder and urethra (20 sources) Urethral stricture; 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: [Other urethral stricture, female] Onset: 08-09-2021 Episodic Other diseases of bladder and urethra (2 sources) Incompetent urethral closure mechanism; 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: [Intrinsic sphincter deficiency (ISD)] Onset: 10-11-2022 Episodic Other diseases of bladder and urethra (15 sources) Urethral intrinsic sphincter deficiency; 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: [Intrinsic sphincter deficiency (ISD)] Onset: 06-05-2023 10-11-2022 Episodic Other nervous system disorders (4 sources) Neuropathy 10-19-2023 Chronic Other non-traumatic joint disorders (4 sources) Other specified arthritis, left ankle and foot; 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: [OTHER SPEC ARTHRITIS LT ANKLE FOOT] Onset: 07-20-2022 Chronic Other non-traumatic joint disorders (1 source) Pain in unspecified joint; 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: [PAIN IN UNSPECIFIED JOINT] Onset: 07-25-2022 Episodic Other non-traumatic joint disorders (1 source) Multiple joint pain; 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: [Pain in unspecified joint] 06-06-2024 Episodic Other non-traumatic joint disorders (1 source) Joint stiffness; 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: [Stiffness of unspecified joint, not elsewhere classified] 06-06-2024 Episodic Rheumatoid arthritis and related disease (6 sources) Rheumatoid arthritis 10-19-2023 Chronic Spondylosis; intervertebral disc disorders; other back problems (4 sources) Low back pain; 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: [Lumbar pain] 05-05-2024 Episodic Sprains and strains (4 sources) Sprain of unspecified ligament of left ankle, initial encounter; 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: [SPRAIN UNS LIGAMENT LT ANKLE INIT] Onset: 07-27-2022 Episodic Unclassified (12 sources) Asymptomatic microscopic hematuria 06-16-2022 Past or Other Problems Problem Classification Problem Date Documented Da te Episodic/Chronic Calculus of urinary tract (20 sources) Kidney stone; 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: [Calculus of kidney] Onset: 06-11-2014 Episodic Genitourinary symptoms and ill-defined conditions (20 sources) Nocturia; 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: [Nocturia] Onset: 06-11-2014 Episodic Malaise and fatigue (1 source) Asthenia; 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: [Weakness] Onset: 07-15-2013 07-15-2013 Episodic Other aftercare (1 source) Other long chain quiller tender (current) drug therapy; 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: [OTH LONG-TERM CURRENT DRUG THERAPY] Onset: 06-27-2022 Episodic Other aftercare (1 source) [facility] (current) use of aspirin; 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: [LONG-TERM CURRENT USE OF ASPIRIN] Onset: 06-28-2022 Episodic Other bone disease and musculoskeletal deformities (6 sources) Osteopenia; 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: [Other specified disorders of bone density and structure, unspecified site] Onset: 06-11-2014 11-21-2023 Episodic Other diseases of bladder and urethra [...] BOTH CERVIX AND UTERUS] Onset: 06-28-2022 Episodic Urinary tract infections (1 source) Lower urinary tract infectious disease; 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: [Urinary tract infection, site not specified] Onset: 06-25-2014 06-25-2014 Episodic Results Test Name Value Interpretation Reference Range Facility Reminderson 07-02-2024 Reminders Reminders From: DOROTHY Santillan APRN, [facility] To: EU - Recalls Lue; Sent: 12/25/2023 10:20:22 EDT Show up: 05/14/2024 10:20:00 EST Subject: Reminder Message Reminder Message 6 mos KUB/FERNY prior to Jun appt 06/25/24 follow up left for patient. duplicate Normal [facility] Reminders Reminders From: Delia Granda To: EU - Recalls Lue; Sent: 06/24/2024 10:29:36 EST Show up: 06/24/2024 10:27:00 EST Subject: Ambulatory Reminder Reminder/Recall Patient needs scheduled for a FERNY and KUB due prior to her 09/10 appt., originally scheduled for 06/25/24 but did not have imaging done. She is also on the cancellation list as she would like a sooner appointment should one become available. She would like to have imaging done at the [facility]. orders faxed to [facility] Normal [facility] C-REACTIVE PROTEINon 025 CRP [Mass/Vol] mg/dL NINF - 0.9 mg/dL [facility] CRP [Mass/Vol]on 06-06-2024 Interpretation and review of laboratory results Normal [facility] ESR Westergren method (Bld) [Velocity]on 06-06-2024 ESR (Bld) [Velocity] 8 mm/h [facility] Interpretation and review of laboratory results Normal [facility] No Panel Informationon 06-06 IMPRESSION: No evidence of inflammatory arthropathy in either hand or foot. Waste Reclaimer: LUÍS Transcribe Date/Time: Jun 06 2024 9:43A Dictated by : VINOD DAVILA MD This examination was interpreted and the report reviewed and electronically signed by: VINOD DAVILA MD on Jun 06 2024 9:46AM [facility] Radiology Study observation (narrative) [facility] No Panel InformationOrdered By: [facility] Provider on 06-06-2024 [facility] XR Foot - bilateral AP and L ateral and obliqueon 06-06-2024 * * *Final Report* * * DATE OF EXAM: Jun 06 2024 9:02AM [id number] [id number] - XR FOOT 3V AP/LAT/OBL JEN / PROCEDURE REASON: Pain in joint, multiple sites * * * * Physician Interpretation * * * * EXAMINATION / TECHNIQUE: XR FOOT 3V AP/LAT/OBL JEN, XR HAND 3V PA/LAT/OBL JEN HISTORY: Joints pain Pain in joint, multiple sites COMPARISON: None. RESULT: No fracture or dislocation is identified in either hand or foot. There is hallux valgus with a small bunion on the right. The joint spaces of the hands and feet are maintained. No osseous erosion in either hand or foot. [facility] * * *Final Report* * * DATE OF EXAM: Jun 06 2024 9:02AM [id number] [id number] - XR FOOT 3V AP/LAT/OBL JEN / PROCEDURE REASON: Pain in joint, multiple sites * * * * Physician Interpretation * * * * EXAMINATION / TECHNIQUE: XR FOOT 3V AP/LAT/OBL JEN, XR HAND 3V PA/LAT/OBL JEN HISTORY: Joints pain Pain in joint, multiple sites COMPARISON: None. RESULT: No fracture or dislocation is identified in either hand or foot. There is hallux valgus with a small bunion on the right. The joint spaces of the hands and feet are maintained. No osseous erosion in either hand or foot. COMBINED IMPRESSION IMPRESSION: No evidence of inflammatory arthropathy in either hand or foot. Waste Reclaimer: LUÍS Transcribe Date/Time: Jun 06 2024 9:43A Dictated by : VINOD DAVILA MD This examination was interpreted and the report reviewed and electronically signed by: VINOD DAVILA MD on Jun 06 2024 9:46AM [facility] XR Hand - bilateral PA and L ateral and Obliqueon 06-06-2024 * * *Final Report* * * DATE OF EXAM: Jun 06 2024 9:02AM [id number] - XR HAND 3V PA/LAT/OBL JEN / PROCEDURE REASON: Pain in joint, multiple sites * * * * Physician Interpretation * * * * EXAMINATION / TECHNIQUE: XR FOOT 3V AP/LAT/OBL JEN, XR HAND 3V PA/LAT/OBL JEN HISTORY: Joints pain Pain in joint, multiple sites COMPARISON: None. RESULT: No fracture or dislocation is identified in either hand or foot. There is hallux valgus with a small bunion on the right. The joint spaces of the hands and feet are maintained. No osseous erosion in either hand or foot. [facility] Provider, [facility] - 06/06/2024 * * *Final Report* * * DATE OF EXAM: Jun 06 2024 9:02AM [id number] [id number] - XR HAND 3V PA/LAT/OBL JEN / PROCEDURE REASON: Pain in joint, multiple sites * * * * Physician Interpretation * * * * EXAMINATION / TECHNIQUE: XR FOOT 3V AP/LAT/OBL JEN, XR HAND 3V PA/LAT/OBL JEN HISTORY: Joints pain Pain in joint, multiple sites COMPARISON: None. RESULT: No fracture or dislocation is identified in either hand or foot. There is hallux valgus with a small bunion on the right. The joint spaces of the hands and feet are maintained. No osseous erosion in either hand or foot. COMBINED IMPRESSION IMPRESSION: No evidence of inflammatory arthropathy in either hand or foot. Waste Reclaimer: LUÍS Transcribe Date/Time: Jun 06 2024 9:43A Dictated by : VINOD DAVILA MD This examination was interpreted and the report reviewed and electronically signed by: VINOD DAVILA MD on Jun 06 2024 9:46AM EST [facility] XR Lumbar spine 2 or 3 Views on 05-08-2024 Imaging Result: 05/05/2024: AP and lateral of lumbar spine showed decreased disc space noted L1-T12. Anterior and posterior columns appeared to be anatomic. There was no acute Bony process including but not limited to fracture and/or dislocation. Significant DJD was noted with decreased disc space and endplate sclerosis at L5-S1. Impression: no acute findings of the lumbar spine. Mckayla Erickson MARKETING INFORMATION COORDINATOR-EXTENSION SERVICE ADVISOR [facility] XR Lumbar spine 2 or 3 Views Ordered By: Jr. Faust on 05-08-2024 [facility] Healthcare Work Phone: XR Lumbar spine 2 or 3 Views on 05-05-2024 Radiology Study observation (narrative) [facility] Healthcare Provider Letteron 01-29-2024 Provider Letter Provider Letter January 29, 2024 [address]CE [address] [place] [id number] : 1965 Dear Eli, We have been trying to reach you with no success. It is important that you return our call regarding your renal US and KUB upon receiving this letter. Also, at the time of your call, please provide us with your current information. Thank you for your prompt attention to this matter. Sincerely, [facility] [place] [address] [place] [address] opt. 3 Normal [facility] C Urineon 12-27-2023 Bacteria identified Cx Nom (U) Microbiology PROCEDURE: Urine Culture [R1] SOURCE: U CleanCatch BODY SITE: COLLECTED DATE/TIME: 12/25/2023 10:20 EDT RECEIVED DATE/TIME: 12/25/2023 20:40 EDT START DATE/TIME: 12/25/2023 20:40 EDT FREE TEXT SOURCE: DOROTHY Santillan APRN, GEOVANNY Santillan APRN-Saleem, Elana Huitron X FINAL REPORTS Final Report [] Verified Date/Time: 12/27/2023 09:41 EDT 15,000 cfu/ml Klebsiella oxytoca 5,000 cfu/ml Mixed skin contaminants Mixed yoly (multiple species present) SUSCEPTIBILITY RESULTS __ LEGEND: S=Susceptible, N/R=Not Reported, Blank=Data not available, or drug not advisable or tested, I=Intermediate, ESBL=Extended spectrum beta-lactamase, R=Resistant, TFG=Thymidine-dependen t strain, DANIELITO=Beta-lactamase positive, NAMITA=mcg/m;(mg/L), S*=Predicted susceptible interp, R*=Predicted resistant interp Kleoxy Antibiotic NAMITA Dilutn NAMITA Interp Ampicillin <=8 R* Ampicillin/ <=8/4 S Sulbactam Aztreonam <=4 S Cefazolin <=2 S Cefepime <=2 S Ceftazidime <=1 S Ceftazidime/ <=8 S Avibactam Ceftriaxone <=1 S Cefuroxime <=4 S Ciprofloxacin <=0.25 S Ertapenem <=0.5 S Gentamicin <=2 S Levofloxacin <=0.5 S Meropenem <=1 S Nitrofurantoin <=32 S Piperacillin/ <=8 S Tazobactam Tetracycline <=4 S Tobramycin <=2 S Trimethoprim/ <=2/38 S Sulfa Performing Locations R1: This test was performed at: [facility], [address] [place] [address], [id number] , [place], Normal [facility] Comment on above: Performed By: #### [id number] #### [facility] [address] [place] [id number] Ambulatory Visit Summaryon 0 12-25-2023 Ambulatory Visit Summary Ambulatory Visit Summary ELI BOYCE :1965 Visit Date:12/25/2023 Ambulatory Visit Instructions Your Diagnosis Intrinsic sphincter deficiency (ISD) Kidney stone OAB (overactive bladder) Other urethral stricture, female Asymptomatic microscopic hematuria Tests Performed US Renal -- Results Pending -- XR Abdomen 1 View -- Results Pending -- Please visit your patient portal for your results or contact your primary care physician. Your Care Team Attending Physician - DOROTHY Santillan APRN, [place] X Primary Care Physician - Phillip Bruner MD This Is Your Medications List aspirin (aspirin 81 mg Oral EC Tab) celecoxib (CeleBREX 200 mg Cap) cholecalciferol (Vitamin D3) escitalopram (Lexapro 10 mg Tab) estradiol topical (Estrace 0.1 mg/g Cream) hydrochlorothiazide (hydrochlorothiazide 12.5 mg Cap) Procedures Performed History of cystoscopy (10/23/2023), Cystoscopic laser lithotripsy of ureteric calculus (10/25/2022), Cystoscopic insertion of ureteric stent (06/21/2022), Ureteroscopy (06/21/2022), Ankle (06/23/2021), ESWL of kidney (06/23/2020), Appendectomy, Arthroscopy of shoulder, Fixation of jaw, Fixation of mandible, Hysterectomy, Neuroplasty of major peripheral nerve of leg, Surgical manipulation of lumbar spine, Tonsillectomy, Tubal ligation. Discharge Vitals Temperature (Temporal Artery) 37 ?C Heart Rate (Peripheral) 48 Respiratory Rate 16 Blood Pressure 127/76 Height 161 cm Height 63 in Weight 76 kg Weight 167.2 lb BMI 29.32 What to do next Scheduled Follow-Up Appointments Sunday 10:00 AM EST With: Gaurav MADRID, Aubrie Cho Where: [facility] [address] [place] [id number]- You Need to Complete the Following Urine Culture, Urine, Clean Catch, Routine collect, 12/25/23, Order for future visit, Nurse collect, Intrinsic sphincter deficiency (ISD) Kidney stone OAB (overactive bladder) Other urethral stricture, female Asymptomatic microscopic hematuria, Print Label B... Medications What How Much When Instructions Unchanged aspirin (aspirin 81 mg Oral EC Tab) 1 Tablets By Mouth Every day Unchanged celecoxib (CeleBREX 200 mg Cap) 1 Capsules By Mouth Every day as needed for for pain Unchanged cholecalciferol (Vitamin D3) 50 Microgram By Mouth Every day Unchanged escitalopram (Lexapro 10 mg Tab) 1 Tablets By Mouth Every day Unchanged estradiol topical (Estrace 0.1 mg/ g Cream) See instructions Apply pea sized amount to urethra/ vagina 3-5x/ week x 2 weeks, then 2x weekly thereafter Unchanged hydrochlorothiazide (hydrochlorothiazide 12.5 mg Cap) 1 Capsules By Mouth Every day Allergies No Known Medication Allergies Problems Ongoing - Any problem that you are currently receiving treatment for. Asymptomatic microscopic hematuria Dysuria Flank pain Intrinsic sphincter deficiency (ISD) Kidney stone Mixed incontinence OAB (overactive bladder) Osteopenia Other urethral stricture, female Proteinuria Rheumatoid arthritis Historical - Any problem that you are no longer receiving treatment for. BNC (bladder neck contracture) BPH with urinary obstruction Incomplete bladder emptying Microscopic hematuria Urinary incontinence Patient Survey You may receive a survey via text or e-mail asking about your office visit. Please share your experience with us by completing your survey. We appreciate your feedback and thank you for choosing us for your care. [facility] IntraOperative Documentson 0 10-25-2023 IntraOperative Documents [id number]#1.0 0TIFF Normal [facility] Postoperative Documentson Postoperative Documents [id number]#1.0 0TIFF Normal [facility] Consent for Anesthesiaon Consent for Anesthesia [id number]. 00TIFF Normal [facility] Discharge Instructionson Discharge Instructions [id number]#1. 00TIFF Normal [facility] IntraOperative Documentson 0 10-24-2023 IntraOperative Documents [id number]#1. 00TIFF [facility] Main OR Intraoperative Recor don 10-24-2023 Main OR Intraoperative Record IntraOp Document Type FT Summary Primary Physician: Aubrie Nolasco MD Finalized Date/Time: 10/24/23 14:02:43 Pt. Name: ELI BOYCE./Sex: 1965 Female Med Rec #: [id number] Physician: Aubrie Nolasco MD Financial #: [id number] Pt. Type: A Room/Bed: [place] [address] Admit/Disch: 10/23/23 06:54:17 - 10/23/23 12:20:00 Institution: Case Times FT Entry 1 Patient Times In Room 10/23/23 10:13:00 Out Room 10/23/23 10:45:00 Procedure Times Start 10/23/23 10:26:00 Stop 10/23/23 10:39:00 Anesthesia Times Start 10/23/23 10:13:00 Stop 10/23/23 10:45:00 Last Modified By: Teresa CORRAL, Maribeth Kern 10/23/23 10:45:37 General Comments: BULKAM[facility] LOT#: [id number], EXP DATE: 07/11/2025 -Yoselyn ESCAMILLA RN 10/24/23 Chart opened to review and send charges [facility]oth CSFA Case Attendance FT Entry 1 Entry 2 Entry 3 Case Attendee Deppen KYLIE, Jena Nolasco MD, Aubrie Escamilla RN, Maribeth Kern Role Performed EDGE BANDER HAND Surgeon - Primary Neurology Specialist - Primary Time In 10/23/23 10:13:00 06/11/24 10:13:00 10/23/23 10:13:00 Time Out 10/23/23 10:45:00 10/23/23 10:45:00 10/23/23 10:45:00 Procedure CYSTOSCOPY(Bilateral) CYSTOSCOPY(Bilateral) CYSTOSCOPY(Bilateral) Comments DR. BRAUN SUPERVISING Last Modified By: Teresa CORRAL, Maribeth Escamilla RN, Maribeth Escamilla RN, Maribeth Kern 10/23/23 Leydi P 10/23/23 Leydi P 10/23/23 10:45:38 10:45:38 10:45:38 Entry 4 Entry 5 Entry 6 Case Attendee Rosanna Mistry LPN, Darryl Collier Ii Role Performed Scrub - Primary Scrub - Primary Neurology Specialist - Relief Time In 10/23/23 10:13:00 10/23/23 10:13:00 10/23/23 10:13:00 Time Out 10/23/23 10:45:00 10/23/23 10:45:00 10/23/23 10:17:00 Procedure CYSTOSCOPY(Bilateral) CYSTOSCOPY(Bilateral) CYSTOSCOPY(Bilateral) Comments Last Modified By: Teresa RN, Maribeth Escamilla RN, Maribeth Escamilla RN, Maribeth Kern 10/23/23 Leydi P 10/23/23 Leydi P 10/23/23 10:45:38 10:45:38 10:45:38 Perioperative Protocols FT Pre-Care Text: Implements protective measures prior to operative or invasive procedure, confirms identity before the operative or invasive procedure, verifies operative procedure, surgical site, and laterality Entry 1 Procedure(s) CYSTOSCOPY(Bilateral) Patient Identity Birthday, ID Band Verified (select at Check, Patient least 2): Participation Consents / H and P Anesthesia Consent, Operative Site N/A Verified HandP, Surgery/Procedure Marking Verified Consent Surgical Site Yes Laterality Verified n/a Verified Procedure Verified Yes Correct Patient Yes Position Verified Availability Equipment, Implant, Prep Dry n/a Verified (If Medication Applicable) PreOp Antibiotic Yes Time Out Gaurav MADRID, Aubrie Cho, Given Participants Deppen Jena ESPINAL, Teresa CORRAL, Maribeth Kern, Rosanna Mistry, [place] MANN Time Out Complete 10/23/23 10:25:00 Outcomes Met? Yes Last Modified By: Maribeth Escamilla RN 10/23/23 10:26:30 Post-Care Text: The patient is free from signs and symptoms of injury caused by extraneous objects Allergy Information FT Pre-Care Text: Verifies allergies Entry 1 Allergies Reviewed? Yes Allergies Reviewed Self/Patient With Outcomes Met? Yes Last Modified By: Maribeth Escamilla RN 10/23/23 10:22:16 Post-Care Text: The patient received appropriate medication(s) safely administered during the perioperative period Surgical Procedures FT Entry 1 Procedure Description Procedure CYSTOSCOPY Modifiers Bilateral Surgeon Description CYSTOSCOPY, BULKAMID Primary Procedure Yes Primary Surgeon Aubrie Nolasco MD Start 10/23/23 10:26:00 Stop 10/23/23 10:39:00 Anesthesia Type MAC Surgical Service Urology Wound Class 2 - Clean-Contaminated Last Modified By: Maribeth Escamilla RN 10/23/23 10:39:37 General Case Data FT Pre-Care Text: Classifies surgical wound, implements aseptic technique, initiates traffic control Entry 1 Case Information OR OR 1 FT Case Level Level 3 Wound Class 2 - Clean-Contaminated Specialty Urology ASA Class 2 Preop Diagnosis INTRINSIC SPHINCTER Postop Same As Preop Yes DEFICIENCY, OVERACTIVE BLADDER Postop Diagnosis INTRINSIC SPHINCTER Outcomes Met? Yes DEFICIENCY, OVERACTIVE BLADDER Last Modified By: Cecy Quiroz CST 10/24/23 14:02:41 Post-Care Text: The patient is free from signs and symptoms of infection Skin Assessment (Pre Procedure) FT Pre-Care Text: Implements protective measures to prevent skin/ tissue injury due to thermal or mechanical sources Evaluates for signs and symptoms of physical injury to skin and tissue Entry 1 Skin Integrity Intact, [place], Warm, and Skin Abnormality No Dry Outcomes Met? Yes Last Modified By: Maribeth Escamilla RN 10/23/23 10:23:41 Post-Care Text: The patient is free from signs and symptoms of injury caused by extraneous objects Patient Positioning FT Pre-Care Text: Identifies physical alterations t (more content not included)... Normal [facility] Pre-Op Checkliston 4 Pre-Op Checklist [id number]#1. 00TIFF [facility] Consent for Procedure/Surger yon 10-23-2023 Consent for Procedure/Surgery [id number] 0TIFF Normal [facility] Consent for Treatmenton 10-12 Consent for Treatment [id number] 0TIFF [facility] Discharge Instructionson Discharge Instructions ELI BOYCE :1965 Visit Date:10/23/2023 Inpatient Discharge Instructions Your Care Team Admitting Physician - Aubrie Nolasco MD Referring Physician - Aubrie Nolasco MD Reason for Your Visit INTRINSIC SPHINCTER DEFICIENCY, OAB Your Diagnosis Intrinsic sphincter deficiency (ISD) This Is Your Medications List aspirin (aspirin 81 mg Oral EC Tab) celecoxib (CeleBREX 200 mg Cap) cholecalciferol (Vitamin D3) escitalopram (Lexapro 10 mg Tab) estradiol topical (Estrace 0.1 mg/g Cream) hydrochlorothiazide (hydrochlorothiazide 12.5 mg Cap) nitrofurantoin (Macrobid 100 mg Cap) Procedure History Cystoscopic laser lithotripsy of ureteric calculus (10/25/2022), Cystoscopic insertion of ureteric stent (06/21/2022), Ureteroscopy (06/21/2022), Ankle (06/23/2021), ESWL of kidney (06/23/2020), Appendectomy, Arthroscopy of shoulder, Fixation of jaw, Hysterectomy, Neuroplasty of major peripheral nerve of leg, Surgical manipulation of lumbar spine, Tonsillectomy, Tubal ligation. What to do next Instructions From Your Doctor Event Name Event Result Discharge Activity Ambulate as tolerated Discharge Diet(s) Regular Call Your Doctor For Persistent or heavy bleeding, Temperature above 101.5 degrees Discharge Instructions Discharge Instructions New Follow Up Appointments after Discharge Follow Up with Aubrie Nolasco When: Comments: Office will call to schedule your follow up in 1 month with [facility] Where: [facility], [address] [phone] Business (1) Medications What How Much When Instructions Next Dose New nitrofurantoin (Macrobid 100 mg Cap) 1 Capsules By Mouth 2 times a day Duration: 5 Days Pickup at [facility] [id number] Unchanged aspirin (aspirin 81 mg Oral EC Tab) 1 Tablets By Mouth Every day Unchanged celecoxib (CeleBREX 200 mg Cap) 1 Capsules By Mouth Every day as needed for for pain Unchanged cholecalciferol (Vitamin D3) 50 Microgram By Mouth Every day Unchanged escitalopram (Lexapro 10 mg Tab) 1 Tablets By Mouth Every day Unchanged estradiol topical (Estrace 0.1 mg/ g Cream) See instructions Apply pea sized amount to urethra/ vagina 3-5x/ week x 2 weeks, then 2x weekly thereafter Unchanged hydrochlorothiazide (hydrochlorothiazide 12.5 mg Cap) 1 Capsules By Mouth Every day Pharmacy Information [facility] [id number]: [address] [place], [place] [id number] [phone] Test Results No qualifying data available. Allergies No Known Medication Allergies Education Materials [facility] [place], [place] Post-Operative Instructions for [employer] Congratulations on starting your journey towards symptom relief! Below you will find basic post-operative instructions. Activity and Lifestyle Instructions ? After your procedure, you may be allowed to return to normal non-strenuous activity. If you had sedation, you may be groggy, and your physician may encourage you to rest. ? You may resume intercourse. ? If you are on your menstrual cycle, you may use tampons. ? You can resume your normal exercise program 24 hours following the procedure if blood has cleared from your urine. If you engage in highly strenuous exercise such as CrossFit, you may want to wait 48-72 hours. ? You may feel discomfort or irritation to the bladder and urethra following the procedure. If this occurs, the discomfort should subside within 24 hours. Your physician may recommend a warm bath and/or an [id number] pain medication to reduce discomfort. ? If you had sedation your physician may recommend the following: o Do not drive for 24 hours or longer if you feel groggy. o Do not drink alcoholic beverages for 24 hours. Bladder ? It is normal to have blood in your urine for 24 hours after the procedure. ? Drink plenty of water to stay hydrated. ? Do not moore or strain to urinate; relax your bladder and give it time to empty. ? Slow urinary stream for the first several days is not unusual. ? If you are unable to urinate, contact your physician. Contact your physician?s office if you experience trouble urinating, heavy bleeding, fever greater than 100.8 degrees, chills, confusion, disorientation, severe abdominal pain, or any other unusual reaction. Once again, congratulations on beginning your journey towards symptom relief! In the following months, if you feel your symptom relief decrease inform your physician to explore further treatment options. This document is a sample for illustrative purposes only. It does not provide a complete list of all instructions patients should follow following their operation. Please consult your physician for a complete list of instructions. ? 2020 [employer]. All rights reserved. This material contains registered trademarks, trade names, and brand names of [employer]. [phone] 04/2021 [employer] Invalid Interpretation Code [phone] [facility] Comment on above: Result Comment: Elec tronically Signed By: Pretty CORRAL, Jamila Raya\.br\Date and Time Signed: 10/23/23 11:44 EDT H&P Updateon 10-23-2023 H&P Update [id number]#1.0 0TIFF Normal [facility] Inpatient Patient Summaryon 10-23-2023 Inpatient Patient Summary [place] [id number] [facility] Clinical Discharge Instructions PERSON INFORMATION Name: ELI BOYCE PHYSICIANS Admitting Physician: Aubrie Nolasco MD Attending Physician: Aubrie Nolasco MD PCP: Phillip Bruner MD Discharge Diagnosis: Intrinsic sphincter deficiency (ISD) Comment: PATIENT EDUCATION INFORMATION Instructions: Lue - [employer] Post-Op Instructions (CUSTOM) Medication Leaflets: Follow up: With: Address: When: Aubrie Nolasco [address] [place] [phone] Business (1) Comments: Office will call to schedule your follow up in 1 month with [facility] MEDICATION LIST New Medications [facility] [id number], [address] [place], [place] [phone], [phone] nitrofurantoin (Macrobid 100 mg Cap) 1 Capsules By Mouth 2 times a day for 5 Days. Refills: 0. Medications to Continue with No Changes Other Medications aspirin (aspirin 81 mg Oral EC Tab) 1 Tablets By Mouth every day. celecoxib (CeleBREX 200 mg Cap) 1 Capsules By Mouth every day as needed for pain. cholecalciferol (Vitamin D3) 50 Microgram By Mouth every day. escitalopram (Lexapro 10 mg Tab) 1 Tablets By Mouth every day. estradiol topical (Estrace 0.1 mg/g Cream) Apply pea sized amount to urethra/vagina 3-5x/week x 2 weeks, then 2x weekly thereafter. Refills: 3. hydrochlorothiazide (hydrochlorothiazide 12.5 mg Cap) 1 Capsules By Mouth every day. Comment: Normal [facility] Main OR PACU I Recordon 10-12 Main OR PACU I Record PACU Phase I Docum ent Type FT Summary Primary Physician: Aubrie Nolasco MD Finalized Date/Time: 10/23/23 11:27:08 Pt. Name: ELI BOYCE/Sex: 1965 Female Med Rec #: [id number] Physician: Aubrie Nolasco MD Financial #: [id number] Pt. Type: A Room/Bed: [place] [address] Admit/Disch: 10/23/23 06:54:17 - Institution: Case Times PACU I FT Pre-Care Text: Identifies barriers to communication and implements measures to provide psychological support Develops individualized plan of care, and ensures continuity of care Maintains patient's dignity and privacy, and maintains patient confidentiality Identifies and reports philosophical, cultural, and spiritual beliefs and values Identifies individual values and wishes concerning care Implements aseptic technique, and administers prescribed antibiotic therapy and immunizing agents as ordered Evaluates postoperative tissue perfusion Implements thermoregulation measures, and monitors body temperature Evaluates postoperative respiratory status Evaluates postoperative cardiac status Evaluates postoperative neurological status Assesses pain control, collaborated in initiating patient-controlled analgesia and implements alternative methods of pain control Verifies allergies, administers prescribed medications and solutions, evaluates response to medications Entry 1 In PACU I 10/23/23 10:46:00 Discharge from PACU 10/23/23 11:16:00 I Outcomes Met? Yes Last Modified By: Mariah Robert RN 10/23/23 11:26:51 Post-Care Text: The patient demonstrates knowledge of the expected response to the operative or invasive procedure The patient's care is consistent with the individualized perioperative plan of care The patient's right to privacy is maintained The patient's value system, lifestyle, ethnicity, and culture are considered, respected, and incorporated into the perioperative plan of care The patient participates in decisions affecting his or her perioperative plan of care The patient is free from signs and symptoms of infection The patient has wound/tissue perfusion consistent with or improved from baseline levels established preoperatively The patient is at or returning to normothermia at the conclusion of the immediate postoperative period The patient's respiratory function is consistent with or improved from baseline levels established preoperatively The patient's cardiovascular status is consistent with or improved from baseline levels established preoperatively The patient's cardiovascular status is consistent with or improved from baseline levels established preoperatively The patient demonstrates and/or reports adequate pain control throughout the perioperative period The patient received appropriate medication(s), safely administered during the perioperative period Acuity Level PACU I FT Entry 1 Start Time 10/23/23 10:46:00 Stop Time 10/23/23 11:16:00 Acuity Level Acuity Level I Last Modified By: Mariah Robert RN 10/23/23 11:27:04 Finalized By: Mariah Robert RN Document Signatures Signed By: Mariah Robert RN 10/23/23 11:27 Normal [facility] Main OR PACU II Recordon Main OR PACU II Record PACU Phase II Document Type FT Summary Primary Physician: Aubrie Nolasco MD Finalized Date/Time: 10/23/23 12:48:08 Pt. Name: ELI BOYCE/Sex: 1965 Female Med Rec #: [id number] Physician: Aubrie Nolasco MD Financial #: [id number] Pt. Type: A Room/Bed: [facility]/ Admit/Disch: 10/23/23 06:54:17 - 10/23/23 12:20:00 Institution: Case Times PACU II FT Pre-Care Text: Identifies barriers to communication and implements measures to provide psychological support and determines knowledge level Develops individualized plan of care, and ensures continuity of care Maintains patient's dignity and privacy, and maintains patient confidentiality Identifies and reports philosophical, cultural, and spiritual beliefs and values Identifies individual values and wishes concerning care administers prescribed antibiotic therapy and immunizing agents as ordered, Evaluates postoperative tissue perfusion Implements thermoregulation measures, and monitors body temperature Evaluates postoperative respiratory status Evaluates postoperative cardiac status Evaluates postoperative neurological status Assesses pain control, collaborated in initiating patient-controlled analgesia and implements alternative methods of pain control Verifies allergies, administers prescribed medications and solutions, evaluates response to medications Entry 1 In PACU II 10/23/23 11:20:00 Discharge from PACU 10/23/23 12:20:00 II Outcomes Met? Yes Last Modified By: Jamila Olsen RN 10/23/23 12:48:06 Post-Care Text: The patient demonstrates knowledge of the expected response to the operative or invasive procedure The patient's care is consistent with the individualized perioperative plan of care The patient's right to privacy is maintained The patient's value system, lifestyle, ethnicity, and culture are considered, respected, and incorporated into the perioperative plan of care The patient participates in decisions affecting his or her perioperative plan of care. The patient is free from signs and symptoms of infection The patient has wound/tissue perfusion consistent with or improved from baseline levels established preoperatively The patient is at or returning to normothermia at the conclusion of the immediate postoperative period The patient's respiratory function is consistent with or improved from baseline levels established preoperatively The patient's cardiovascular status is consistent with or improved from baseline levels established preoperatively The patient's neurological status is consistent with or improved from baseline levels established preoperatively The patient demonstrates and/or reports adequate pain control throughout the perioperative period The patient received appropriate medication(s), safely administered during the perioperative period Finalized By: Jamila Olsen RN Document Signatures Signed By: Jamila Olsen RN 10/23/23 12:48 [facility] Main OR Preoperative Recordo n 10-23-2023 Main OR Preoperative Record PreOp Document Type FT Summary Primary Physician: Aubrie Nolasco MD Finalized Date/Time: 10/23/23 10:46:20 Pt. Name: ELI BOYCE /Sex: 1965 Female Med Rec #: [id number] Physician: Aubrie Nolasco MD Financial #: [id number] Pt. Type: A Room/Bed: [place] [address] Admit/Disch: 10/23/23 06:54:17 - Institution: Case Times PreOp FT Pre-Care Text: Verifies consent for planned procedure, identifies individual values and wishes concerning care, includes family members in perioperative teaching Entry 1 Patient Times. In Pre Surgery 10/23/23 07:00:00 Out Pre Surgery 10/23/23 10:11:00 Outcomes Met? Yes Last Modified By: Maribeth Escamilla RN 10/23/23 10:46:19 Post-Care Text: The patient participates in decisions affecting his or her perioperative plan of care Finalized By: Maribeth Escamilla RN Document Signatures Signed By: Maribeth Escamilla RN 10/23/23 10:46 Normal [facility] Monitor Recordon 10-23-2023 Monitor Record [id number]. 00TIFF Normal [facility] Monitor Record [id number]. 00TIFF Normal [facility] Operative Reporton Operative Report Patient: CHRIS BOYCE Age: 58 years Sex: Female : 1965 Associated Diagnoses: None Author: Aubrie Nolasco MD Procedure Procedure Date: 10/23/2023. Confirmed: patient. Performed by: Aubrie Nolasco MD. Type of procedure: Cystoscopy, Bulkamid (injection of urethral bulking agent). Indication: 58-year-old female with a history of stress urinary incontinence found to have intrinsic sphincter deficiency on pelvic exam despite Kegels and pelvic floor exercises. After discussion of risks and benefits of management options, patient elected to proceed to the OR for cystoscopy, Bulkamid (injection of urethral bulking agent). Risks were discussed including but not limited to bleeding, pain, infection, retention, damage to surrounding structures and need for additional procedures. Procedure tolerated: well. Specimen: none. Complications: none. Findings: No bladder tumors, lesions, stones or foreign bodies. Good coaptation of urethra after Bulkamid. Procedure tolerated: well. Specimen: none. Complications: none. PROCEDURE IN DETAIL: After the risks, benefits, indications, alternatives and expectations of the procedure were reviewed with the patient and informed consent was obtained, the patient was taken to operative suite and placed in the supine position. Sequential compression devices were placed on bilateral lower extremities. General anesthesia LMA was induced and the patient was transitioned to the lithotomy position and prepped and draped in the usual sterile fashion for cystoscopy. A preoperative dose of antibiotics was given. A timeout was observed prior to initiating the procedure. 14Fr catheter was inserted to drain the bladder. Lidocaine gel was inserted into the urethra and bladder. At the start of the procedure, anesthetic gel was added to the end rotatable Bulkamid sheath and the water inflow was adjusted to produce an adequate stream. The Bulkamid Needle was then placed ? of the way into the needle channel of the rotatable sheath and the entire Bulkamid system was then advanced into the urethra until the bladder is visualised and inspected. The Bulkamid needle was then advanced into the needle channel on the rotatable sheath until the tip of the sheath is adjacent to the bladder neck. The sheath was then rotated to the 5 o'clock position. The needed was then extend into the bladder until the 2cm ludmila on the needle is visible. The Bulkamid system was then retracted until the tip of the needle was resting on the bladder neck. The needle was then retracted into the sheath and approximately 1.5cm from the bladder neck the Bulkamid system was pressed parallel against the urethral wall and the needle is then advanced into the submucosal tissue ensuring that the bevel of the needle was facing towards the lumen. The needle was advanced approximately 0.5cm, and the Bulkamid hydrogel was then injected until the Bulkamid cushion was visible and reached the midline of the urethral lumen. The needle was then retracted back into the rotatable sheath, and rotated to the next injection site. Subsequent injections were performed at 7 o'clock, 2 o'clock and 10 o'clock all along the same plane as the original injection until all (4) cushions met at the midline of the urethral lumen. 2mls Total of Bulkamid Hydrogel was used. The bladder was left full at the end of the case and the Bulkamid system was removed. The procedure was well tolerated and EBL was minimal. Plan: Void prior to dc home. Prophylactic antibiotics were prescribed. Follow up in 1 month with [facility] and to evaluate improvement. Patient was given instruction to contact the office if she had any difficulty urinating and was consulted about the potential of a top up procedure if the desired effect was not achieved. . Impression and Plan Diagnosis Intrinsic sphincter deficiency (ISD) (ZUM08-LB N36.42, Discharge, Medical). Diagnosis Intrinsic sphincter deficiency (ISD) (MON77-CG N36.42, Discharge, Medical). Normal [facility] Comment on above: Result Comment: Elec tronically Signed By: Aubrie Nolasco MD\.br\Date and Time Signed: 10/23/23 11:18 EDT Outpatient Surgery Discharge Instructionon 10-23-2023 Outpatient Surgery Discharge Instruction [place] [address] Patient Discharge Instructions PERSON INFORMATION Name: ELI BOYCE [place] Date of : 1965 Current Date: 10/23/2023 11:08:28 PHYSICIANS Admitting Physician: Aubrie Nolasco MD Discharge Diagnosis: Intrinsic sphincter deficiency (ISD) ELI BOYCE has been given the following list of follow-up instructions, prescriptions, and patient education materials: PATIENT FOLLOW-UP INFORMATION Diet: Regular Discharge Activity: Ambulate as tolerated Call Your Doctor For: Persistent or heavy bleeding, Temperature above 101.5 degrees IF UNABLE TO CONTACT YOUR PHYSICIAN AND YOU FEEL IT IS AN EMERGENCY, GO TO THE NEAREST EMERGENCY ROOM OR CALL 911 ISHELDON BRENDA K, have received the attached patient education materials/instructions and have verbalized understanding: May we do a follow up call? Yes No I was present when discharge instructions were given Patient Signature Date Clinican/Nurse Signature ___ Date Follow up: With: Address: When: Aubrie Nolasco [address], [place] [address], [address] [address] [phone] [facility] (1) Comments: Office will call to schedule your follow up in 1 month with [facility] Pharmacy Information: You may receive a survey from [employer] asking you to rate your care experience. Your feedback is important and will help us understand what we do well and how we can improve the quality of care we provide to you, your loved ones and our community. It?s an honor to serve you. Thank you for choosing [facility] HERE ARE THE MEDICATION CHANGES THAT OCCURRED DURING YOUR HOSPITAL STAY New Medications [facility] [id number], [address], [place] [id number], [phone] nitrofurantoin (Macrobid 100 mg Cap) 1 Capsules By Mouth 2 times a day for 5 Days. Refills: 0. Medications to Continue with No Changes Other Medications aspirin (aspirin 81 mg Oral EC Tab) 1 Tablets By Mouth every day. celecoxib (CeleBREX 200 mg Cap) 1 Capsules By Mouth every day as needed for pain. cholecalciferol (Vitamin D3) 50 Microgram By Mouth every day. escitalopram (Lexapro 10 mg Tab) 1 Tablets By Mouth every day. estradiol topical (Estrace 0.1 mg/g Cream) Apply pea sized amount to urethra/vagina 3-5x/week x 2 weeks, then 2x weekly thereafter. Refills: 3. hydrochlorothiazide (hydrochlorothiazide 12.5 mg Cap) 1 Capsules By Mouth every day. PATIENT EDUCATION INFORMATION Instructions: [facility] [place], [place] Post-Operative Instructions for Bulkamid Congratulations on starting your journey towards symptom relief! Below you will find basic post-operative instructions. Activity and Lifestyle Instructions ? After your procedure, you may be allowed to return to normal non-strenuous activity. If you had sedation, you may be groggy, and your physician may encourage you to rest. ? You may resume intercourse. ? If you are on your menstrual cycle, you may use tampons. ? You can resume your normal exercise program 24 hours following the procedure if blood has cleared from your urine. If you engage in highly strenuous exercise such as CrossFit, you may want to wait 48-72 hours. ? You may feel discomfort or irritation to the bladder and urethra following the procedure. If this occurs, the discomfort should subside within 24 hours. Your physician may recommend a warm bath and/or an wqfw-etv-xxfrocs pain medication to reduce discomfort. ? If you had sedation your physician may recommend the following: o Do not drive for 24 hours or longer if you feel groggy. o Do not drink alcoholic beverages for 24 hours. Bladder ? It is normal to have blood in your urine for 24 hours after the procedure. ? Drink plenty of water to stay hydrated. ? Do not moore or strain to urinate; relax your bladder and give it time to empty. ? Slow urinary stream for the first several days is not unusual. ? If you are unable to urinate, contact your physician. Contact your physician?s office if you experience trouble urinating, heavy bleeding, fever greater than 100.8 degrees, chills, confusion, disorientation, severe abdominal pain, or any other unusual reaction. Once again, congratulations on beginning your journey towards symptom relief! In the following months, if you feel your symptom relief decrease inform your physician to explore further treatment options. This document is a sample for illustrative purposes only. It does not provide a complete list of all instructions patients should follow following their operation. Please consult your physician for a (more content not included)... Invalid Interpretation Code [phone] [facility] Patient Education - Texton 0 10-23-2023 Patient Education - Text [facility] [place], [place] Post-Operative Instructions for Bulkamid Congratulations on starting your journey towards symptom relief! Below you will find basic post-operative instructions. Activity and Lifestyle Instructions ? After your procedure, you may be allowed to return to normal non-strenuous activity. If you had sedation, you may be groggy, and your physician may encourage you to rest. ? You may resume intercourse. ? If you are on your menstrual cycle, you may use tampons. ? You can resume your normal exercise program 24 hours following the procedure if blood has cleared from your urine. If you engage in highly strenuous exercise such as CrossFit, you may want to wait 48-72 hours. ? You may feel discomfort or irritation to the bladder and urethra following the procedure. If this occurs, the discomfort should subside within 24 hours. Your physician may recommend a warm bath and/or an wjzp-vne-erzyemz pain medication to reduce discomfort. ? If you had sedation your physician may recommend the following: o Do not drive for 24 hours or longer if you feel groggy. o Do not drink alcoholic beverages for 24 hours. Bladder ? It is normal to have blood in your urine for 24 hours after the procedure. ? Drink plenty of water to stay hydrated. ? Do not moore or strain to urinate; relax your bladder and give it time to empty. ? Slow urinary stream for the first several days is not unusual. ? If you are unable to urinate, contact your physician. Contact your physician?s office if you experience trouble urinating, heavy bleeding, fever greater than 100.8 degrees, chills, confusion, disorientation, severe abdominal pain, or any other unusual reaction. Once again, congratulations on beginning your journey towards symptom relief! In the following months, if you feel your symptom relief decrease inform your physician to explore further treatment options. This document is a sample for illustrative purposes only. It does not provide a complete list of all instructions patients should follow following their operation. Please consult your physician for a complete list of instructions. ? 2020 [employer] All rights reserved. This material contains registered trademarks, trade names, and brand names of [employer]. [id number] 04/2021 Bulkamid Invalid Interpretation Code [phone] [facility] Progress Note-Physicianon Progress Note-Physician Patient: ELI BOYCE Age: 58 years Sex: Female : 1965 Associated Diagnoses: None Author: Pedrito Braun MD Postoperative Information Postoperative disposition: Postoperative disposition: To PACU. Optimetrix number: Optimetrix number [id number]. Anesthetic utilized: General. Health Status Allergies: Allergic Reactions (Selected) No Known Medication Allergies Physical Examination VS/Measurements Pain Assessment: Controlled. General: Awake, Appropriate. Respiratory: Adequate air exchange. Cardiovascular: Stable. Neurological Assessment Anesthetic outcome No anesthetic complications noted. Adequate pain relief. able to void without difficulty, able to ambulate with assist, tolerating PO intake, no N/V. Review / Management Condition: Stable. Plan Transfer/Discharge: Transfer/Discharge Discharge when meets criteria ( To home ). Normal [facility] Comment on above: Result Comment: Elec tronically Signed By: Pedrito Braun MD\.br\Date and Time Signed: 10/23/23 12:24 EDT Progress Note-Physician Patient: ELI BOYCE Age: 58 years Sex: Female : 1965 Associated Diagnoses: None Author: Pedrito Braun MD Preoperative Information Anesthesia Preop Info: Time patient last ate or drank 10/16/2023 00:00:00. Anesthesia history: Patient history: N/V with anesthesia, slow to wake. Family history+: None. Informed consent: Signed by patient. Including risks, benefits, and alternatives related to the: Anesthetic plan. Re-evaluation prior to induction: Initial evaluation reviewed: No significant change. Review of Systems Eye Ear/Nose/Mouth/Throat Respiratory: No shortness of breath, No cough. Cardiovascular: No chest pain. Gastrointestinal: No heartburn. Musculoskeletal: Negative except as documented in history of present illness. Neurologic: Negative except as documented in history of present illness. Health Status Allergies: Allergic Reactions (Selected) No Known Medication Allergies, Allergies (1) Active Severity Reaction No Known Medication Allergies None Documented Current medications: (Selected) Inpatient Medications Ordered Lactated Ringers IV Fifi 1000 mL 1,000 mL: 1,000 mL, IV, 150 mL/hr, Routine, Start date 10/23/23 7:00:00 EDT, 6.7 hour(s), Total volume (mL): 1,000, 75.3 kg, 1.85, m2 cefazolin additive + Sodium Chloride 0.9% intravenous solution 50 mL: 2 gram = 1 EA, Powder-Inj, IV Piggyback, Once, Stop date 10/23/23 7:00:00 EDT, Routine, Start date 10/23/23 7:00:00 EDT, 100 mL/hr, Infuse over 30 minute(s), HOLD if patient has history of anaphylactic allergic reaction to Penicillin Prescriptions Prescribed Estrace 0.1 mg/g Cream: See Instructions, 42.5 gm, Refill(s) 3, Apply pea sized amount to urethra/vagina 3-5x/week x 2 weeks, then 2x weekly thereafter, [facility] [id number], 161, cm, 06/16/22 11:27:00 EST, Height/Length Dosing, 70.1, kg, 06/16/22 11:27:00 EST, Weight Do... Documented Medications Documented CeleBREX 200 mg Cap: 200 mg = 1 cap(s), Oral, Daily, PRN for pain, # 10 cap(s), Refills(s) 0 Lexapro 10 mg Tab: 10 mg = 1 tab(s), Oral, Daily, Depression Vitamin D3: 50 mcg, Oral, Daily, Refills(s) 0, Prophylaxis aspirin 81 mg Oral EC Tab: 81 mg = 1 tab(s), Oral, Daily, Prophylaxis hydrochlorothiazide 12.5 mg Cap: 12.5 mg = 1 cap(s), Oral, Daily, Refills(s) 0, Home Medications (6) Active aspirin 81 mg Oral EC Tab 81 mg = 1 tab(s), Oral, Daily CeleBREX 200 mg Cap 200 mg = 1 cap(s), PRN, Oral, Daily Estrace 0.1 mg/g Cream See Instructions hydrochlorothiazide 12.5 mg Cap 12.5 mg = 1 cap(s), Oral, Daily Lexapro 10 mg Tab 10 mg = 1 tab(s), Oral, Daily Vitamin D3 50 mcg, Oral, Daily , Medications (2) Active Scheduled: (1) ceFAZolin + Sodium Chloride 0.9% Minibag 50 mL 2 gram 1 EA, IV Piggyback, Once Continuous: (1) Lactated Ringers 1,000 mL 1,000 mL, IV, 150 mL/hr PRN: (0) Problem list: All Problems Asymptomatic microscopic hematuria / SNOMED CT 5994136412 / Confirmed Dysuria / SNOMED CT 87582572 / Confirmed Flank pain / SNOMED CT 699919165 / Confirmed Intrinsic sphincter deficiency (ISD) / SNOMED CT 7643630135 / Confirmed Kidney stone / SNOMED CT 366174950 / Confirmed 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 / Confirmed Mixed incontinence / SNOMED CT 55270311 / Confirmed Neuropathy / SNOMED CT 3725116879 / Confirmed OAB (overactive bladder) / SNOMED CT 9987302141 / Confirmed Other urethral stricture, female / SNOMED CT 163943167 / Confirmed Proteinuria / SNOMED CT 58322397 / Confirmed Rheumatoid arthritis / SNOMED CT 537404043 / Confirmed Resolved: BNC (bladder neck contracture) / SNOMED CT 8743564028 Resolved: BPH with urinary obstruction / SNOMED CT 9659946773 Resolved: Incomplete bladder emptying / SNOMED CT 263875745 Resolved: Microscopic hematuria / SNOMED CT 895345439 Resolved: Urinary incontinence / SNOMED CT 6613410156 Canceled: Nocturia / SNOMED CT 663716044 Canceled: Personal history of kidney stones / SNOMED CT 1260944861 Canceled: Urethra cancer / SNOMED CT 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 BNC (bladder neck contracture) (0966019050): Resolved. Microscopic hematuria (477675855): Resolved. Incomplete bladder emptying (007762964): Resolved. Urinary incontinence (1336397731): Resolved. Family History: Hypertension Mother Arthritis Mother Procedure history: Rt Laser Litho (836506268) on 10/25/2022 at 57 Years. Cystoscopic insertion of ureteric stent (085848689) on 06/21/2022 at 57 Years. Ureteroscopy (0511130001) on 06/21/2022 at 57 Years. Ankle (more content not included)... Normal [facility] Comment on above: Result Comment: Elec tronically Signed By: Kade MADRID, Pedrito Syed\.br\Date and Time Signed: 10/23/23 08:04 EDT BMPon 10-19-2023 Anion gap [Moles/Vol] 11 mmol/L Normal 6-16 [facility] Comment on above: Performed By: #### 2 [id number] #### [facility] [address] [place] [address] Calcium [Mass/Vol] 8.8 mg/dL Low 8.9-11.1 [facility] Comment on above: Performed By: #### 2 105696 #### [facility] [address] [place] [address] Chloride [Moles/Vol] 104 mmol/L Normal 101-111 [facility] Comment on above: Performed By: #### 2 562392 #### [facility] [address] [place] [address] CO2 [Moles/Vol] 26 mmol/L Normal 21-31 [facility] Comment on above: Performed By: #### 2 902563 #### [facility] [address] [place] [address] Creatinine [Mass/Vol] 0.8 mg/dL Normal 0.5-1.3 [facility] Comment on above: Performed By: #### 2 364229 #### [facility] [address] [facility] [address] Glucose [Mass/Vol] 100 mg/dL Normal 55-199 [facility] Comment on above: Performed By: #### 2 620310 #### [facility] [address] [place] [address] Potassium [Moles/Vol] 3.9 mmol/L Normal 3.5-5.3 [facility] Comment on above: Performed By: #### 2 766630 #### [facility] [address] [place] [address] Sodium [Moles/Vol] 137 mmol/L Normal 135-145 [facility] Comment on above: Performed By: #### 2 673008 #### [facility] [address] [place] [address] Urea nitrogen [Mass/Vol] 15 mg/dL Normal 5-21 [facility] Comment on above: Performed By: #### 2 155507 #### [facility] [address] [place] [address] Urea nitrogen/Creatinine [Mass ratio] 19 No Units Normal 10-20 [facility] Comment on above: Performed By: #### 2 858258 #### [facility] [address] [place] [address] CBC w/ Auto Diffon 4 Basophils/100 WBC (Bld) 0.7 % Normal 0.0-2.0 [facility] Comment on above: Performed By: #### 2 635708 #### [facility] [address] [place] [address] Basophils/Leukocytes Auto (Bld) [Pure # fraction] 0.0 E9/L Normal 0.0-0.2 [facility] Comment on above: Performed By: #### 2 572143 #### [facility] [address] [place] [address] Eosinophils (Bld) [#/Vol] 0.1 E9/L Normal 0.0-0.5 [facility] Comment on above: Performed By: #### 2 032463 #### [facility] [address] [place] [address] Eosinophils/100 WBC (Bld) 2.2 % Normal 0.0-8.0 [facility] Comment on above: Performed By: #### 2 299191 #### [facility] [address] [place] [address] Erythrocyte distribution width (RBC) [Ratio] 12.6 % Normal 10.9-14.2 [facility] Comment on above: Performed By: #### 2 899069 #### [facility] [address] [place] [address] Hematocrit (Bld) [Volume fraction] 39.9 % Normal 34.0-46.0 [facility] Comment on above: Performed By: #### 2 110711 #### [facility] [address] [place] [address] Hemoglobin (Bld) [Mass/Vol] 13.2 g/dL Normal 12.0-16.0 [facility] Comment on above: Performed By: #### 2 662183 #### [facility] [address] [place] [address] Lymphocytes (Bld) [#/Vol] 1.4 E9/L Normal 1.0-4.0 [facility] Comment on above: Performed By: #### 2 604072 #### [facility] [address] [place] [address] Lymphocytes/100 WBC (Bld) 24.5 % Normal 14.0-50.0 [facility] Comment on above: Performed By: #### 2 138519 #### [facility] [address] [place] [address] MCH (RBC) [Entitic mass] 30.2 pg Normal 27.0-34.0 [facility] Comment on above: Performed By: #### 2 008701 #### [facility] [address] [place] [address] MCHC (RBC) [Mass/Vol] 33.1 g/dL Normal 31.4-36.0 [facility] Comment on above: Performed By: #### 2 791863 #### [facility] [address] [place] [address] MCV (RBC) [Entitic vol] 91.2 fL Normal 80.0-100.0 [facility] Comment on above: Performed By: #### 2 298537 #### [facility] [address] [place] [address] Monocytes (Bld) [#/Vol] 0.7 E9/L Normal 0.2-1.0 [facility] Comment on above: Performed By: #### 2 832203 #### [facility] [address] [place] [address] Neutrophils (Bld) [#/Vol] 3.6 E9/L Normal 2.0-7.5 [facility] Comment on above: Performed By: #### 2 861514 #### [facility] [address] [place] [address] Neutrophils/100 WBC (Bld) 61.4 % Normal 36.0-75.0 [facility] Comment on above: Performed By: #### 2 251239 #### [facility] [address] [place] [address] Platelet mean volume (Bld) [Entitic vol] 8.9 fL Normal 6.4-10.8 [facility] Comment on above: Performed By: #### 2 098349 #### [facility] [address] [place] [address] Platelets (Bld) [#/Vol] 229.0 E9/L Normal 150.0-500.0 [facility] Comment on above: Performed By: #### 2 448170 #### [facility] [address] [place] [address] RBC (Bld) [#/Vol] 4.4 E12/L Normal 4.3-5.9 [facility] Comment on above: Performed By: #### 2 117096 #### [facility] [address] [place] [address] WBC corrected for nucl RBC Auto (Bld) [#/Vol] 5.8 E9/L Normal 4.0-11.0 [facility] Comment on above: Performed By: #### 2 [id number] #### [facility] [address] [place] [address] CHEMISTRYOrdered By: SYSTEM SYSTEM on 10-19-2023 Anion gap [Moles/Vol] 11 mmol/L Normal 6 - 16 mEq/L R emisol Chem Calcium [Mass/Vol] 8.8 mg/dL Low 8.9 - 11. 1 mg/dL Remisol Chem Chloride [Moles/Vol] 104 mmol/L Normal 101 - 1 11 mmol/L Remisol Chem CO2 [Moles/Vol] 26 mmol/L Normal 21 - 31 mmol/L Remisol Chem Creatinine [Mass/Vol] 0.8 mg/dL Normal 0.5 - 1.3 mg/dL Remisol Chem eGFR 84 mL/min/1.73 m2 Normal >=59mL/min /1 .73 m2 Remisol Chem Glucose [Mass/Vol] 100 mg/dL Normal 55 - 199 mg/dL Remisol Chem Potassium [Moles/Vol] 3.9 mmol/L Normal 3.5 - 5.3 mmol/L Remisol Chem Sodium [Moles/Vol] 137 mmol/L Normal 135 - 145 mmol/L Remisol Chem Urea nitrogen [Mass/Vol] 15 mg/dL Normal 5 - 21 mg/dL Remisol Chem Urea nitrogen/Creatinine [Mass ratio] 19 mg/mg Normal 10 - 20 Remisol Chem COAGULATIONOrdered By: Rain Askew on 10-19-2023 aPTT Coag (PPP) [Time] 29.3 s Normal 25.1 - 36.5 second(s) [facility] Comment on above: Interpretive Data: P arameter 15 days - 4 weeks 1 - 5 months 6 - 11 months 1 - 5 years 6 - 10 years 11 - 17 years PTT Mean: 35.4 (27.6-45.6) Mean: 33.5 (24.8-40.7) Mean: 32.4 (25.1-40.7) Mean: 31.6 (24.0-39.2) Mean: 31.6 (26.9-38.7) Mean: 31.0 (24.6-38.4) Pediatric Reference ranges were obtained from a study by Haresh Matute et al. prepared from 1437 samples obtained at 7 different centers using the same coagulation reagent and instrumentation as [facility]. Currently there are no coagulation studies available worldwide for children to 14 days, and no normal ranges. Heparin therapeutic range (represented by Anti-Factor Xa activity of 0.2 - 0.4 U/mL) corresponds to PTT of 56.6 - 109.0 sec. INR Coag (PPP) [Relative time] 0.85 {INR} Invalid Interpretation Code [facility] Comment on above: Interpretive Data: I NR results are specifically intended to assess patients stabilized on long-term Anticoagulation therapy suggested INR s Less Intensive Anticoagulation 2.0 3.0 Conventional Range 3.0 4.5 PT Coag (PPP) [Time] 9.5 s Normal 9.4 - 1 2.5 second(s) [facility] Comment on above: Interpretive Data: 1 5 days - 4 weeks 1 - 5 months 6 -11 months 1 5 years 6 10 years 11 -17 years Mean: 11.2 (9.5 12.6) Mean: 11.0 (9.7 12.8) Mean: 11.0 (9.8 13.0) Mean: 11.3 (9.9 13.4) Mean: 11.7 (10.0 14.6) Mean: 11.8 (10.0 - 14.1) Pediatric Reference ranges were obtained from a study by Haresh Matute et al. prepared from 1437 samples obtained at 7 different centers using the same coagulation reagent and instrumentation as [facility]. Currently there are no coagulation studies available worldwide for children to 14 days, and no normal ranges. Consent for Treatmenton Consent for Treatment [id number]#1.0 0TIFF Normal [facility] HEMATOLOGYOrdered By: SYSTEM SYSTEM on 10-19-2023 Basophils/100 WBC (Bld) 0.7 % Normal 0.0 - 2.0 % Remisol Heme Basophils/Leukocytes Auto (Bld) [Pure # fraction] 0.0 E9/L Normal 0.0 - 0.2 E9/L Remisol Heme Eosinophils (Bld) [#/Vol] 0.1 E9/L Normal 0.0 - 0.5 E9/L Remisol Heme Eosinophils/100 WBC (Bld) 2.2 % Normal 0.0 - 8.0 % Remisol Heme Erythrocyte distribution width (RBC) [Ratio] 12.6 % Normal 10.9 - 14.2 % Remisol Heme Hematocrit (Bld) [Volume fraction] 39.9 % Normal 34.0 - 46.0 % Remisol Heme Hemoglobin (Bld) [Mass/Vol] 13.2 g/dL Normal 12.0 - 16.0 gm/dL Remisol Heme Lymphocytes (Bld) [#/Vol] 1.4 E9/L Normal 1.0 - 4.0 E9/L Remisol Heme Lymphocytes/100 WBC (Bld) 24.5 % Normal 14.0 - 50.0 % Remisol Heme MCH (RBC) [Entitic mass] 30.2 pg Normal 27.0 - 34.0 pg Remisol Heme MCHC (RBC) [Mass/Vol] 33.1 g/dL Normal 31.4 - 36.0 gm/dL Remisol Heme MCV (RBC) [Entitic vol] 91.2 fL Normal 80.0 - 100.0 fL Remisol Heme Monocytes (Bld) [#/Vol] 0.7 E9/L Normal 0.2 - 1.0 E9/L Remisol Heme Monocytes/100 WBC (Bld) 11.2 % Normal 4.0 - 14.0 % Remisol Heme Neutrophils (Bld) [#/Vol] 3.6 E9/L Normal 2.0 - 7.5 E9/L Remisol Heme Neutrophils/100 WBC (Bld) 61.4 % Normal 36.0 - 75.0 % Remisol Heme Platelet mean volume (Bld) [Entitic vol] 8.9 fL Normal 6.4 - 10.8 fL Rem[facility] Heme Platelets (Bld) [#/Vol] 229.0 E9/L Normal 150.0 - 500.0 E9/L Remisol Heme RBC (Bld) [#/Vol] 4.4 E12/L Normal 4.3 - 5.9 E12/L Rem[facility] Heme WBC corrected for nucl RBC Auto (Bld) [#/Vol] 5.8 E9/L Normal 4.0 - 11.0 E9/L Remisol Heme Insurance Correspondenceon 0 10-19-2023 Insurance Correspondence [id number]#1.0 0TIFF Normal [facility] PT & PTTon 10-19-2023 aPTT Coag (PPP) [Time] 29.3 second(s) Normal 25.1-36.5 [facility] Comment on above: Result Comment: Para meter 15 days - 4 weeks 1 - 5 months 6 - 11 months 1 - 5 years 6 - 10 years 11 - 17 years PTT Mean: 35.4 (27.6-45.6) Mean: 33.5 (24.8-40.7) Mean: 32.4 (25.1-40.7) Mean: 31.6 (24.0-39.2) Mean: 31.6 (26.9-38.7) Mean: 31.0 (24.6-38.4) Pediatric Reference ranges were obtained from a study by Haresh Matute et al. prepared from 1437 samples obtained at 7 different centers using the same coagulation reagent and instrumentation as [facility]. Currently there are no coagulation studies available worldwide for children to 14 days, and no normal ranges. Heparin therapeutic range (represented by Anti-Factor Xa activity of 0.2 - 0.4 U/mL) corresponds to PTT of 56.6 - 109.0 sec. Performed By: #### 1 [id number] #### [facility] [address] [place] [address] INR Coag (PPP) [Relative time] 0.85 {INR} Invalid Interpretation Code [facility] Comment on above: Result Comment: INR results are specifically intended to assess patients stabilized on long-term Anticoagulation therapy suggested INR?s ?Less Intensive Anticoagulation? 2.0 ? 3.0 Conventional Range 3.0 ? 4.5 Performed By: #### 1 [id number] #### [facility] [address] [place] [address] PT Coag (PPP) [Time] 9.5 second(s) Normal 9.4-12.5 [facility] Comment on above: Result Comment: 15 d ays - 4 weeks 1 - 5 months 6 -11 months 1 ? 5 years 6 ? 10 years 11 -17 years Mean: 11.2 (9.5 ? 12.6) Mean: 11.0 (9.7 ? 12.8) Mean: 11.0 (9.8 ? 13.0) Mean: 11.3 (9.9 ? 13.4) Mean: 11.7 (10.0 ? 14.6) Mean: 11.8 (10.0 - 14.1) Pediatric Reference ranges were obtained from a study by josephine Arango al. prepared from 1437 samples obtained at 7 different centers using the same coagulation reagent and instrumentation as [facility]. Currently there are no coagulation studies available worldwide for children to 14 days, and no normal ranges. Performed By: #### 1 [id number] #### [facility] [address] [place] [address] UA with Cult Rflxon 10-19-19 24 Bilirubin Ql (U) Negative Normal Negative [facility] Comment on above: Performed By: #### 4 [id number] #### [facility] [address] [place] [address] Clarity (U) Clear Normal Clear [facility] Comment on above: Performed By: #### 4 [id number] #### [facility] [address] [place] [address] Color (U) Light-Yellow Normal Yellow [facility] Comment on above: Result Comment: Micr oscopic readings are only performed on those samples that meet specific criteria set forth by [facility]. Performed By: #### 4 [id number] #### [facility] [address] [place] [address] Glucose Ql (U) Negative Normal Negative [facility] Comment on above: Performed By: #### 4 [id number] #### [facility] [address] [place] [address] Hemoglobin Auto test strip (U) [Mass/Vol] Trace Abnormal Negative [facility] Comment on above: Performed By: #### 4 [id number] #### [facility] [address] [place] [address] Ketones Auto test strip Ql (U) Negative Normal Negative [facility] Comment on above: Performed By: #### 4 [id number] #### [facility] [address] [place] [address] Leukocyte esterase Auto test strip Ql (U) Negative Normal Negative [facility] Comment on above: Performed By: #### 4 [id number] #### [facility] [address] [place] [address] Nitrite Auto test strip Ql (U) Negative Normal Negative [facility] Comment on above: Performed By: #### 4 [id number] #### [facility] [address] [place] [address] pH (U) 6.0 [pH] Invalid Interpretation Code 5.0-9.0 [facility] Comment on above: Performed By: #### 4 [id number] #### [facility] [address] [place] [address] Protein Ql (U) Negative Normal Negative [facility] Comment on above: Performed By: #### 4 [id number] #### [facility] [address] [place] [address] Specific gravity (U) [Rel density] 1.017 Invalid Interpretation Code 1.005-1.030 [facility] Comment on above: Performed By: #### 4 [id number] #### [facility] [address] [place] [address] Urobilinogen (U) [Mass/Vol] Negative Normal Negative [facility] Comment on above: Performed By: #### 4 [id number] #### [facility] [address] [place] [address] Type of Urine collection method Clean Catch Normal [facility] Comment on above: Performed By: #### 4 [id number] #### [facility] [address] [place] [address] URINALYSISOrdered By: SYSTEM SYSTEM on 10-19-2023 Bilirubin Ql (U) Negative Normal Negativemg/ d L [facility] UA Auto SS Clarity (U) Clear (10/19/23 9:53 AM) Normal Clear [facility] UA Auto SS Color (U) Light-Yellow 1 (10/19/23 9:53 AM) Normal Yellow [facility] UA Auto SS Comment on above: Interpretive Data: M icroscopic readings are only performed on those samples that meet specific criteria set forth by [facility]. Glucose Ql (U) Negative Normal Negativemg/d L [facility] UA Auto SS Hemoglobin Auto test strip (U) [Mass/Vol] Trace mg/dL Invalid Interpretation Code Negativemg/d L [facility] UA Auto SS Ketones Auto test strip Ql (U) Negative Normal Negativemg/d L [facility] UA Auto SS Leukocyte esterase Auto test strip Ql (U) Negative Normal NegativeLeu/ uL [facility] UA Auto SS Nitrite Auto test strip Ql (U) Negative Normal Negativemg/d L [facility] UA Auto SS pH (U) 6.0 *NA* (10/19/23 9:53 AM) Invalid Interpretation Code 5.0 - 9.0 [facility] UA Auto SS Protein Ql (U) Negative Normal Negativemg/d L [facility] UA Auto SS Specific gravity (U) [Rel density] 1.017 *NA* (10/19/23 9:53 AM) Invalid Interpretation Code 1.005 - 1.030 [facility] UA Auto SS Urobilinogen (U) [Mass/Vol] Negative Normal Negativemg/d L [facility] UA Auto SS URINALYSISOrdered By: Gladys Damon on 10-19-2023 UA Spec Desc Clean Catch (10/19/23 9:53 AM) Normal [facility] UA Auto SS XR Chest 2 Viewson XR Chest 2 Views Exam Date/Time: 10/19/2023 10:09 EDT Reason for Exam: P.A.T. Report IMPRESSION: NO RADIOGRAPHIC EVIDENCE OF ACTIVE DISEASE IN THE CHEST. CLINICAL INFORMATION: P.A.T. COMPARISON: None available. FINDINGS: Two views of the chest were obtained. Heart and mediastinum appear normal. The lungs appear clear. Visualized bony thorax and remainder of the chest appears unremarkable. Ordering Provider: Andrew Gao FINAL REPORT Dictated: 10/19/2023 5:20 pm Myron Ro MD Signed (Electronic Signature): 10/19/2023 5:20 pm Signed by: Myron Ro MD Transcribed by: MATTHEW Technologist: NOEL Technical Comments Radiation Dose: Ka,r in mGy = na DAP = na Normal [facility] eGFRon 10-19-2023 eGFR 84 mL/min/1.73 m2 Normal >=59 [facility] Comment on above: Order Comment: Order added by Discern Expert. Performed By: #### 1 [id number] #### [facility] [address] [place] [address] Consent for Procedure/Surger yon 10-11-2023 Consent for Procedure/Surgery [id number]#1.00 TIFF [facility] C Urineon 09-07-2023 Bacteria identified Cx Nom [...] Locations R1: This test was performed at: [facility], [address] [place] [address], [address]- , , [facility] Comment on above: Performed By: #### 2 [id number] #### [facility] [address] [place] [address] ED Note-Physicianon 09-06-19 ED Note-Physician [id number]. 00TIFF [facility] RAD - CT Reporton 09-06-2023 RAD - CT Report [id number]#1. 00TIFF [facility] Screenson 09-06-2023 Screens [id number]#1.0 0TIFF [facility] Patient Educationon 09-05-19 Patient Education Urology Injection [...] have the catheter removed. Medicines ? Take ghbr-bat-gbbezur and prescription medicines only as told by [...] provider. Document Revised: 12/16/2020 Document Reviewed: 12/03/2020 [employer] Patient Education ? 2022 [employer] Injection Treatments for Urinary Incontinence Urinary [...] including vitamins, herbs, eye drops, creams, and hjki-xhy-jftlckf medicines. ? Any problems you or family members have had with anesthetic medicines. ? Any blood disorders you have. ? An (more content not included)... Normal Call [facility] Urology Office/Clinic Noteon 09-05-2023 Urology Office/Clinic Note Chief Complaint 3 month F/U with FERNY HPI Staff Pt is here for a 3 month F/U with FERNY done @ [facility] 06/06/23 NEG C&S done 06/05/23 Previous DX;kidney stones, OAB, urethral stricture, microscopic hematuria, incompletely emptying bladder, dysuria B&BSQ 18 Continue taking Estradiol- Still taking with no problems [facility] for flank pain on 07/29/2023 PVR 0 [...] specific results or experiences. -Schedule Bulkamid Ordered: [id number] Measure Post Void residual urine and/or bladder capacity by US- non-imaging Urine Culture Urnls Dip Stick Auto w/o Microscopy POC 41922 2. Dysuria (R30.0: Dysuria) UCx 06/05/23 - [...] treated. Will call pt with results. Ordered: [id number] Measure Post Void residual urine and/or bladder [...] Botox in the future See #2. Ordered: [id number] Measure Post Void residual urine and/or bladder capacity by US- non-imaging Urine Culture Urnls Dip Stick Auto w/o Microscopy POC 82708 4. Kidney stone (N20.0: Calculus of kidney) [...] left n (more content not included)... Normal [facility] Comment on above: Result Comment: Elec tronically Signed By: KAILASH TOLEDO PA-C\.br\Date and Time Signed: 09/05/23 12:24 EDT\.br\Electronically Co-Signed By: Yenny Garcias\.br\Date and Time Co-Signed: 09/05/23 12:01 EDT SHANTA by IFAon 07-25-2022 Antinuclear Antibodies, IFA Positive Abnormal [facility] Comment on above: Result Comment: Nega tive <1:80 Borderline 1:80 Positive >1:80 Performed By: #### C ALCULI #### [facility] [address] [place], [place] [address] Dr. Michael Murillo Centriole Pattern Normal [facility] Comment on above: Performed By: #### C ALCULI #### [facility] [address] [place], [place] [address] Dr. Michael Murillo Centromere Pattern Normal [facility] Comment on above: Performed By: #### C ALCULI #### [facility] [address] [place] [address] Dr. Michael Murillo Homogeneous Pattern 1:80 Normal [facility] Comment on above: Result Comment: ICAP nomenclature: AC-1 Performed By: #### C ALCULI #### [facility] [address] [place] [address] [address] Michael Murillo Midbody Pattern Normal [facility] Comment on above: Performed By: #### C ALCULI #### [facility] [address] [address] [address] Michael Murillo Note: Comment Normal [facility] Comment on above: Result Comment: For [...] titers Nucleosomes, Histones Drug-induced SLE Speckled Sm, DIRECTOR OF EVENT MANAGEMENT, SCL-70, SLE,MCTD,PSS (diffuse form), SS-A/SS-B Sjogrens Nucleolar SCL-70, PM-1/SCL High titers Scleroderma, PM/DM Centromere Centromere PSS (limited form) w/Crest syndrome variable Nuclear Dot Sp100,o70-arjliv Primary Biliary Cirrhosis Nuclear GP210, Primary Biliary Cirrhosis Membrane addison A,B,C Performed By: #### C ALCULI #### [facility] [address] [place] [address] Dr. Michael Murillo Nuclear Dot Pattern Normal [facility] Comment on above: Performed By: #### C ALCULI #### [facility] [address] [place] [address] Dr. Michael Murillo Nuclear Membrane Pattern Normal [facility] Comment on above: Performed By: #### C ALCULI #### [facility] [address] [place] [address] Dr. Michael Murillo Nucleolar Pattern Normal [facility] Comment on above: Performed By: #### C ALCULI #### [facility] [address] [place] [address] Dr. Michael Murillo PCNA Pattern Normal [facility] Comment on above: Performed By: #### C ALCULI #### [facility] [address] [place] [address] Dr. Michael Murillo Speckled Pattern Normal [facility] Comment on above: Performed By: #### C ALCULI #### [facility] [address] [place] [address] Dr. Michael Murillo Spindle Apparatus Pattern Normal [facility] Comment on above: Performed By: #### C ALCULI #### [facility] [address] [place] [address] Dr. Michael Murillo INSULINon 07-22-2022 Insulin 10.8 uIU/mL Normal 2.6-24.9 [facility] Comment on above: Performed By: #### I NSULIN #### [facility] [address] [place] [address] Dr. Michael Murillo CBC AUTO DIFFon 07-21-2022 BASO # 0.1 103/ul Normal 0.0-0.1 [facility] Comment on above: Performed By: #### T 7, TSH, LIPID, CMP #### [facility] [address] [place] [address] Dr. Michael Murillo Basophils/100 WBC (Bld) 0.9 % Normal 0.2-2.0 [facility] Comment on above: Performed By: #### T 7, TSH, LIPID, CMP #### [facility] [address] [place] [address] Dr. Michael Murillo EO # 0.1 103/ul Normal 0.0-0.7 [facility] Comment on above: Performed By: #### T 7, TSH, LIPID, CMP #### [facility] [address] [place] [address] Dr. Michael Murillo Eosinophils/100 WBC (Bld) 2.1 % Normal 0.9-7.0 [facility] Comment on above: Performed By: #### T 7, TSH, LIPID, CMP #### [facility] [address] [place] [address] Dr. Michael Murillo Erythrocyte distribution width (RBC) [Ratio] 12.7 % Normal 11.0-15.0 [facility] Comment on above: Performed By: #### T 7, TSH, LIPID, CMP #### [facility] [address] [address] [address] Michael Murillo Hematocrit (Bld) [Volume fraction] 39.3 % Normal 36.0-48.0 [facility] Comment on above: Performed By: #### T 7, TSH, LIPID, CMP #### [facility] [address] [address] [address] Michael Murillo Hemoglobin (Bld) [Mass/Vol] 13.1 g/dL Normal 12.0-16.0 [facility] Comment on above: Performed By: #### T 7, TSH, LIPID, CMP #### [facility] [address] [place] [address] Dr. Michael Murillo IG # 0.02 10e3/ul Normal 0.00-0.03 [facility] Comment on above: Performed By: #### T 7, TSH, LIPID, CMP #### [facility] [address] [place] [address] Dr. Michael Murillo IG % 0.4 % Normal 0.0-0.5 [facility] Comment on above: Performed By: #### T 7, TSH, LIPID, CMP #### [facility] [address] [address] [address] Michael Murillo LYMPH # 1.5 103/ul Normal 1.2-3.8 [facility] Comment on above: Performed By: #### T 7, TSH, LIPID, CMP #### [facility] [address] [place] [address] Dr. Michael Murillo Lymphocytes/100 WBC (Bld) 25.5 % Normal 20.5-60.0 [facility] Comment on above: Performed By: #### T 7, TSH, LIPID, CMP #### [facility] [address] [place] [address] Dr. Michael Murillo MANUAL DIFF REQ NO Normal [facility] Comment on above: Performed By: #### T 7, TSH, LIPID, CMP #### [facility] [address] [place] [address] Dr. Michael Murillo MCH (RBC) [Entitic mass] 30.1 pg Normal 26.7-34.0 [facility] Comment on above: Performed By: #### T 7, TSH, LIPID, CMP #### [facility] [address] [place] [address] Dr. Michael Murillo MCHC (RBC) [Mass/Vol] 33.3 g/dL Normal 29.9-35.2 [facility] Comment on above: Performed By: #### T 7, TSH, LIPID, CMP #### [facility] [address] [place] [address] Dr. Michael Murillo MCV (RBC) [Entitic vol] 90.3 fL Normal 81.0-99.0 [facility] Comment on above: Performed By: #### T 7, TSH, LIPID, CMP #### [facility] [address] [place] [address] Dr. Michael Murillo MONO # 0.7 103/ul Normal 0.3-0.8 [facility] Comment on above: Performed By: #### T 7, TSH, LIPID, CMP #### [facility] [address] [place] [address] Dr. Michael Murillo Monocytes/100 WBC (Bld) 12.1 % Critically high 1.7-12.0 [facility] Comment on above: Performed By: #### T 7, TSH, LIPID, CMP #### [facility] [address] [place] [address] Dr. Michael Murillo NEUT # 3.4 103/ul Normal 1.4-6.5 [facility] Comment on above: Performed By: #### T 7, TSH, LIPID, CMP #### [facility] [address] [place] [address] Dr. Michael Murillo Neutrophils/100 WBC (Bld) 59.0 % Normal 43.0-75.0 [facility] Comment on above: Performed By: #### T 7, TSH, LIPID, CMP #### [facility] [address] [place] [address] Dr. Michael Murillo Platelet mean volume (Bld) [Entitic vol] 9.5 fL Normal 9.5-13.5 [facility] Comment on above: Performed By: #### T 7, TSH, LIPID, CMP #### [facility] [address] [address] [address] Michael Murillo PLT 253 103/ul Normal 150-450 [facility] Comment on above: Performed By: #### T 7, TSH, LIPID, CMP #### [facility] [address] [address] [address] Michael Murillo RBC 4.35 106/ul Normal 4.20-5.40 [facility] Comment on above: Performed By: #### T 7, TSH, LIPID, CMP #### [facility] [address] [address] [address] Michael Murillo WBC 5.7 103/ul Normal 4.0-11.0 [facility] Comment on above: Performed By: #### T 7, TSH, LIPID, CMP #### [facility] [address] [place] [address] Dr. Michael Murillo FREE THYROXINE INDEX T7on FTI 2.45 Normal 1.30-4.50 [facility] Comment on above: Performed By: #### T 7, TSH, LIPID, CMP #### [facility] [address] [place] [address] Dr. Michael Murillo T3U 34.0 % Normal 30.0-39.0 [facility] Comment on above: Performed By: #### T 7, TSH, LIPID, CMP #### [facility] [address] [place] [address] Dr. Michael Murillo T4 [Mass/Vol] 7.20 ug/dL Normal 4.80-13.90 [facility] Comment on above: Performed By: #### T 7, TSH, LIPID, CMP #### [facility] [address] [place] [address] Dr. Michael Murillo GLYCOHEMOGLOBIN A1Con 2022 ADA RECOMMENDATION SEE BELOW Normal [facility] [facility] Comment on above: Result Comment: ADA RECOMMENDED LIMIT 4.0 - 6.0 ADA THERAPEUTIC TARGET < 7.0 ACTION SUGGESTED > 7.0 Performed By: #### C ALCULI #### [facility] [address] [address] [address] Michael Murillo Glucose [Mass/Vol] 123 mg/dL Normal [facility] Comment on above: Performed By: #### C ALCANTONINO #### [facility] [address] [place] [address] Dr. Michael Murillo HbA1c (Bld) [Mass fraction] 5.9 % Normal 4.5-6.2 [facility] Comment on above: Performed By: #### C ALCULI #### [facility] [address] [place] [address] Dr. Michael Murillo IRONon 07-21-2022 Iron [Mass/Vol] 110.0 ug/dL Normal 50.0-170.0 [facility] Comment on above: Performed By: #### C AMANDA #### [facility] [address] [place] [address] Dr. Michael Murillo LIPID PROFILEon 07-21-2022 CHOL-HDL RATIO NORM SEE BELOW Normal [facility] Comment on above: Result Comment: 3.3 - 4.4 LOW RISK 4.4 - 7.1 AVERAGE RISK 7.1 - 11.0 MODERATE RISK >11.0 HIGH RISK Performed By: #### T 7, TSH, LIPID, CMP #### [facility] [address] [place] [address] Dr. Michael Murillo Cholesterol [Mass/Vol] 257 mg/dL Critically high <=200 [facility] Comment on above: Performed By: #### T 7, TSH, LIPID, CMP #### [facility] [address] [place] [address] Dr. Michael Murillo Cholesterol in HDL [Mass/Vol] 89 mg/dL Critically high 40-60 [facility] Comment on above: Performed By: #### T 7, TSH, LIPID, CMP #### [facility] [address] [place] [address] Dr. Michael Murillo Cholesterol in LDL [Mass/Vol] 156.4 mg/dL Normal [facility] Comment on above: Performed By: #### T 7, TSH, LIPID, CMP #### [facility] [address] [place] [address] Dr. Michael Murillo Cholesterol.total/Cho lesterol in HDL [Mass ratio] 2.9 {ratio} Normal [facility] Comment on above: Performed By: #### T 7, TSH, LIPID, CMP #### [facility] [address] [address] [address] Michael Murillo HDL NORMAL > or = 60 mg/dl - LO W CARDIOVASCULAR RISK <40 mg/dl - HIGH CARDIOVASCULAR RISK Normal [facility] Comment on above: Performed By: #### T 7, TSH, LIPID, CMP #### [facility] [address] [address] [address] Michael Murillo LDL CALC NORMAL SEE BELOW Normal [facility] Comment on above: Result Comment: <100 mg/dl OPTIMAL 100 - 129 mg/dl NEAR OR ABOVE OPTIMAL 130 - 159 mg/dl BORDERLINE HIGH 160 - 189 mg/dl HIGH >190 mg/dl VERY HIGH Performed By: #### T 7, TSH, LIPID, CMP #### [facility] [address] [address] [address] Michael Murillo Triglyceride [Mass/Vol] 58 mg/dL Normal <=150 [facility] Comment on above: Performed By: #### T 7, TSH, LIPID, CMP #### [facility] [address] [address] [address] Michael Murillo VLDL CALC 11.6 mg/dL Normal [facility] Comment on above: Performed By: #### T 7, TSH, LIPID, CMP #### [facility] [address] [place] [address] Dr. Michael Murillo PROF 14(COMP METB)on 023 Albumin [Mass/Vol] 3.8 g/dL Normal 3.4-5.0 [facility] Comment on above: Performed By: #### T 7, TSH, LIPID, CMP #### [facility] [address] [place] [address] Dr. Michael Murillo Albumin/Globulin [Mass ratio] 1.2 {ratio} Normal [facility] Comment on above: Performed By: #### T 7, TSH, LIPID, CMP #### [facility] [address] [place] [address] Dr. Mcihael Murillo ALP [Catalytic activity/Vol] 103 U/L Normal 46-116 [facility] Comment on above: Performed By: #### T 7, TSH, LIPID, CMP #### [facility] [address] [address] [address] Michael Murillo ALT [Catalytic activity/Vol] 38 U/L Normal 14-59 [facility] Comment on above: Performed By: #### T 7, TSH, LIPID, CMP #### [facility] [address] [place] [address] Dr. Michael Murillo Anion gap [Moles/Vol] 10.1 mmol/L Normal [facility] Comment on above: Performed By: #### T 7, TSH, LIPID, CMP #### [facility] [address] [place] [address] Dr. Michael Murillo AST [Catalytic activity/Vol] 27 U/L Normal 15-37 [facility] Comment on above: Performed By: #### T 7, TSH, LIPID, CMP #### [facility] [address] [place] [address] Dr. Michael Muirllo Bilirubin [Mass/Vol] 0.4 mg/dL Normal 0.2-1.0 [facility] Comment on above: Performed By: #### T 7, TSH, LIPID, CMP #### [facility] [address] [place] [address] Dr. Michael Murillo Calcium [Mass/Vol] 8.9 mg/dL Normal 8.5-10.1 [facility] Comment on above: Performed By: #### T 7, TSH, LIPID, CMP #### [facility] [address] [place] [address] Dr. Michael Murillo Chloride [Moles/Vol] 107 mmol/L Normal 98-107 [facility] Comment on above: Performed By: #### T 7, TSH, LIPID, CMP #### [facility] [address] [address] [address] Michael Murillo CO2 [Moles/Vol] 29.8 mmol/L Normal 21.0-32.0 [facility] Comment on above: Performed By: #### T 7, TSH, LIPID, CMP #### [facility] [address] [address] [address] Michael Murillo Creatinine [Mass/Vol] 0.86 mg/dL Normal 0.55-1.02 [facility] Comment on above: Performed By: #### T 7, TSH, LIPID, CMP #### [facility] [address] [address] [address] Michael Murillo EGFR-AF IVORIAN >60 Normal >=60 [facility] Comment on above: Performed By: #### T 7, TSH, LIPID, CMP #### [facility] [address] [address] [address] Michael Murillo EGFR-NON AF IVORIAN >60 Normal >=60 [facility] Comment on above: Performed By: #### T 7, TSH, LIPID, CMP #### [facility] [address] [address] [address] Michael Murillo Globulin (S) [Mass/Vol] 3.2 g/dL Normal [facility] Comment on above: Performed By: #### T 7, TSH, LIPID, CMP #### [facility] [address] [address] [address] Michael Murillo Glucose [Mass/Vol] 96 mg/dL Normal 74-106 [facility] Comment on above: Performed By: #### T 7, TSH, LIPID, CMP #### [facility] [address] [address] [address] Michael Murillo Potassium [Moles/Vol] 3.9 mmol/L Normal 3.5-5.1 [facility] Comment on above: Performed By: #### T 7, TSH, LIPID, CMP #### [facility] [address] [address] [address] Michael Murillo Protein [Mass/Vol] 7.0 g/dL Normal 6.4-8.2 [facility] Comment on above: Performed By: #### T 7, TSH, LIPID, CMP #### [facility] [address] [address] [address] Michael Murillo Sodium [Moles/Vol] 143 mmol/L Normal 136-145 [facility] Comment on above: Performed By: #### T 7, TSH, LIPID, CMP #### [facility] [address] [place] [address] Dr. Michael Murillo Urea nitrogen [Mass/Vol] 17.0 mg/dL Normal 7.0-18.0 [facility] Comment on above: Performed By: #### T 7, TSH, LIPID, CMP #### [facility] [address] [address] [address] Michael Murillo Urea nitrogen/Creatinine [Mass ratio] 19.8 mg/mg Normal [facility] Comment on above: Performed By: #### T 7, TSH, LIPID, CMP #### [facility] [address] [place] [address] Dr. Michael Murillo TSHon 07-21-2022 TSH 2.426 uIU/mL Normal 0.358-3.740 [facility] Comment on above: Performed By: #### T 7, TSH, LIPID, CMP #### [facility] [address] [place] [address] Dr. Michael Murillo VITAMIN D 25 OHon 07-21-2022 VIT D 25-OH 62.1 ng/mL Normal [facility] Comment on above: Performed By: #### C ALCULI #### [facility] [address] [place] [address] Dr. Michael Murillo VIT D RANGES SEE BELOW Normal [facility] Comment on above: Result Comment: <20 ng/mL Vit D deficient 20 - <30 ng/mL Vit D insufficient 30 - 100 ng/mL Vit D sufficient >100 ng/mL Potential Toxicity Performed By: #### C ALCULI #### [facility] [address] [place] [address] Dr. Michael Murillo MRI FOOT LT WO [...] by: NADEGE GANNON Date: 2022-07-20 16:22 Normal [facility] BONE IMAGE 3 PHASEon 06-15 GA BONE [...] by: BENI ORTIZ Date: 2022-07-10 13:57 Normal [facility] CALCULI, URINARYon 3 2,8 Dihydroxyadenine Normal [facility] Comment on above: Performed By: #### C ALCULI #### [facility] [address] [place] [address] Dr. Michael Murillo Ammonium Acid Urate Normal [facility] Comment on above: Performed By: #### C ALCULI #### [facility] [address] [address] [address] Michael Murillo Bilirubin Ql (U) Normal [facility] Comment on above: Performed By: #### C ALCULI #### [facility] [address] [address] [address] Michael Murillo Ca Oxalate Dihydrate 20 % Normal [facility] Comment on above: Performed By: #### C ALCULI #### [facility] [address] [address] [address] Michael Murillo CaHPO4 ([place]ite) [place] [facility] Comment on above: Performed By: #### C ALCULI #### [facility] [address] [address] [address] Michael Murillo Calcium Bilirubinate Normal [facility] Comment on above: Performed By: #### C ALCULI #### [facility] [address] [place] [address] Dr. Michael Murillo Calcium Carbonate Normal [facility] Comment on above: Performed By: #### C ALCULI #### [facility] [address] [address] [address] Michael Murillo Calcium Oxalate Monohydrate 70 % [facility] Comment on above: Performed By: #### C ALCULI #### [facility] [address] [address] [address] Michael Murillo Calcium Palmitate Normal [facility] Comment on above: Performed By: #### C ALCULI #### [facility] [address] [address] [address] Mcihael Murillo Calcium Phosphate Normal [facility] Comment on above: Performed By: #### C ALCULI #### [facility] [address] [address] [address] Michael Murillo Calcium Stearate Normal [facility] Comment on above: Performed By: #### C ALCULI #### [facility] [address] [place] [address] Dr. Michael Murillo Carbonate Apatite Normal [facility] Comment on above: Performed By: #### C ALCULI #### [facility] [address] [place] [address] Dr. Michael Murillo Cellular Material Normal [facility] Comment on above: Performed By: #### C ALCULI #### [facility] [address] [address] [address] Michael Murillo Cholesterol [facility] Comment on above: Performed By: #### C ALCULI #### [facility] [address] [address] [address] Michael Murillo Color (U) Brown Normal [facility] Comment on above: Performed By: #### C ALCULI #### [facility] [address] [place] [address] Dr. Michael Murillo Comment Comment [facility] Comment on above: Result Comment: Calc ium phosphate (hydroxyl form) includes hydroxyapatite, amorphous calcium phosphate, and whitlockite. Hydroxyapatite is the most common of the calcium phosphate salts found in human kidney stones. Performed By: #### C ALCULI #### [facility] [address] [place] [address] Dr. Michael Murillo Comment [facility] Comment on above: Performed By: #### C ALCULI #### [facility] [address] [place] [address] Dr. Michael Murillo Comment: Comment [facility] Comment on above: Result Comment: Malissa feldman questions regarding Calculi Analysis contact [employer] [facility] at: [phone]. Performed By: #### C ALCULI #### [facility] [address] [place] [address] Dr. Michael Murillo Composition Comment [facility] Comment on above: Result Comment: Perc entage (Represents the % composition) Performed By: #### C ALCULI #### [facility] [address] [place] [address] Dr. Michael Murillo Cystine [facility] Comment on above: Performed By: #### C ALCULI #### [facility] [address] [place] [address] Dr. Michael Murillo Disclaimer: Comment [facility] Comment on above: Result Comment: This test was developed and its performance characteristics determined by [facility]. It has not been cleared or approved by the Food and Drug Administration. Performed By: #### C ALCULI #### [facility] [address] [address] [address] Michael Murillo Dried Blood Normal [facility] Comment on above: Performed By: #### C ALCULI #### [facility] [address] [address] [address] Michael Murillo Drug or Metabolite Normal [facility] Comment on above: Performed By: #### C ALCULI #### [facility] [address] [address] [address] Michael Murillo Hydroxyapatite 10 % Normal [facility] Comment on above: Performed By: #### C ALCULI #### [facility] [address] [address] [address] Michael Murillo Mg NH4 PO4 (Struvite) [facility] Comment on above: Performed By: #### C ALCULI #### [facility] [address] [place] [address] Dr. Michael Murillo MgHPO4 (New[place]ite) Normal [facility] Comment on above: Performed By: #### C ALCULI #### [facility] [address] [address] [address] Michael Murillo Other component(s) Normal [facility] Comment on above: Performed By: #### C ALCULI #### [facility] [address] [place] [address] Dr. Michael Murillo PDF . Normal [facility] Comment on above: Performed By: #### C ALCULI #### [facility] [address] [address] [address] Michael Murillo Photo Comment [facility] Comment on above: Result Comment: Phot ograph will follow under a separate cover Performed By: #### C ALCULI #### [facility] [address] [place] [address] Dr. Michael Murillo Please note: Comment Normal [facility] Comment on above: Result Comment: Calc antonino report will follow via computer, mail or postbed stitcher delivery. Performed By: #### C ALCULI #### [facility] [address] [address] [address] Michael Murillo Size 3x3 Normal [facility] Comment on above: Result Comment: Mult iple pieces received. Dimensions of the largest piece reported. Performed By: #### C ALCULI #### [facility] [address] [place] [address] Dr. Michael Murillo Sodium Acid Urate Normal [facility] Comment on above: Performed By: #### C ALCULI #### [facility] [address] [address] [address] Michael Murillo Source Comment [facility] Comment on above: Result Comment: Left Kidney Performed By: #### C ALCULI #### [facility] [address] [place] [address] Dr. Michael Murillo [employer] [facility] Comment on above: Performed By: #### C ALCULI #### [facility] [address] [place] [address] Dr. Michael Murillo Uric Acid [facility] Comment on above: Performed By: #### C ALCULI #### [facility] [address] [place] [address] Dr. Michael Murillo Uric Acid Dihydrate Normal [facility] Comment on above: Performed By: #### C ALCULI #### [facility] [address] [place] [address] Dr. Michael Murillo Weight 37 mg [facility] Comment on above: Performed By: #### C ALCULI #### [facility] [address] [place] [address] Dr. Michael Murillo Xanthine [facility] Comment on above: Performed By: #### C ALCULI #### [facility] [address] [place] [address] ABD/PELVIS WO CONon [...] related to sequela of recently passed stone. Infectious/inflammator y left-sided pyelonephritis/ureteri tis is in the differential. 2. Subcentimeter bilateral [...] be of value. Electronically authenticated by: FRANCK DICKH Date: 2022-06-24 22:07 Normal [facility] CARDIAC LUDMILA ADMITon 023 CK [Catalytic activity/Vol] 111 U/L Normal 26-192 [facility] Comment on above: Performed By: #### C CHRISTOS, CMP #### [facility] [address] [place] [address] Dr. Michael Murillo CK.MB [Mass/Vol] 0.90 ng/mL Normal <=3.60 [facility] Comment on above: Performed By: #### C CHRISTOS, CMP #### [facility] [address] [address] [address] Michael Murillo HSTROP 6.6 pg/mL Normal 4.0-51.3 [facility] Comment on above: Result Comment: CUT- OFF POINTS HAVE BEEN ESTABLISHED BASED ON THE FOURTH UNIVERSAL DEFINITIONS OF MYOCARDIAL INFARCTION. THE UPPER REFERENCE LIMIT (URL) OF TROPONIN, DEFINED THE 99TH PERCENTILE OF cTnI DISTRIBUTION IN A REFERENCE POPULATION, HAS BEEN CONFIRMED THE DECISION THRESHOLD FOR SD DIAGNOSIS. Performed By: #### C CHRISTOS, CMP #### [facility] [address] [address] [address] Michael Murillo KEARA 42 ng/mL Normal 9-82 [facility] Comment on above: Performed By: #### C CHRISTOS, CMP #### [facility] [address] [address] [address] Michael Murillo CBC AUTO DIFFon 06-24-2022 BASO # 0.0 103/ul Normal 0.0-0.1 [facility] Comment on above: Performed By: #### C BC #### [facility] [address] [place] [address] Dr. Michael Murillo Basophils/100 WBC (Bld) 0.5 % Normal 0.2-2.0 [facility] Comment on above: Performed By: #### C BC #### [facility] [address] [place] [address] Dr. Michael Murillo EO # 0.2 103/ul Normal 0.0-0.7 [facility] Comment on above: Performed By: #### C BC #### [facility] [address] [place] [address] Dr. Michael Murillo Eosinophils/100 WBC (Bld) 2.0 % Normal 0.9-7.0 [facility] Comment on above: Performed By: #### C BC #### [facility] [address] [place] [address] Dr. Michael Murillo Erythrocyte distribution width (RBC) [Ratio] 11.9 % Normal 11.0-15.0 [facility] Comment on above: Performed By: #### C BC #### [facility] [address] [place] [address] Dr. Michael Murillo Hematocrit (Bld) [Volume fraction] 40.8 % Normal 36.0-48.0 [facility] Comment on above: Performed By: #### C BC #### [facility] [address] [place] [address] Dr. Michael Murillo Hemoglobin (Bld) [Mass/Vol] 13.7 g/dL Normal 12.0-16.0 [facility] Comment on above: Performed By: #### C BC #### [facility] [address] [place] [address] Dr. Michael Murillo IG # 0.02 10e3/ul Normal 0.00-0.03 [facility] Comment on above: Performed By: #### C BC #### [facility] [address] [place] [address] Dr. Michael Murillo IG % 0.2 % Normal 0.0-0.5 [facility] Comment on above: Performed By: #### C BC #### [facility] [address] [address] [address] Michael Murillo LYMPH # 2.0 103/ul Normal 1.2-3.8 [facility] Comment on above: Performed By: #### C BC #### [facility] [address] [address] [address] Michael Murillo Lymphocytes/100 WBC (Bld) 24.3 % Normal 20.5-60.0 [facility] Comment on above: Performed By: #### C BC #### [facility] [address] [address] [address] Michael Murillo MANUAL DIFF REQ NO Normal [facility] Comment on above: Performed By: #### C BC #### [facility] [address] [place] [address] Dr. Michael Murillo MCH (RBC) [Entitic mass] 30.2 pg Normal 26.7-34.0 [facility] Comment on above: Performed By: #### C BC #### [facility] [address] [place] [address] Dr. Michael Murillo MCHC (RBC) [Mass/Vol] 33.6 g/dL Normal 29.9-35.2 [facility] Comment on above: Performed By: #### C BC #### [facility] [address] [place] [address] Dr. Michael Murillo MCV (RBC) [Entitic vol] 89.9 fL Normal 81.0-99.0 [facility] Comment on above: Performed By: #### C BC #### [facility] [address] [address] [address] Michael Murillo MONO # 1.0 103/ul Critically high 0.3-0.8 [facility] Comment on above: Performed By: #### C BC #### [facility] [address] [place] [address] Dr. Michael Murillo Monocytes/100 WBC (Bld) 11.9 % Normal 1.7-12.0 [facility] Comment on above: Performed By: #### C BC #### [facility] [address] [place] [address] Dr. Michael Murillo NEUT # 5.1 103/ul Normal 1.4-6.5 [facility] Comment on above: Performed By: #### C BC #### [facility] [address] [place] [address] Dr. Michael Murillo Neutrophils/100 WBC (Bld) 61.1 % Normal 43.0-75.0 [facility] Comment on above: Performed By: #### C BC #### [facility] [address] [place] [address] Dr. Michael Murillo Platelet mean volume (Bld) [Entitic vol] 9.8 fL Normal 9.5-13.5 [facility] Comment on above: Performed By: #### C BC #### [facility] [address] [place] [address] Dr. Michael Murillo PLT 250 103/ul Normal 150-450 [facility] Comment on above: Performed By: #### C BC #### [facility] [address] [place] [address] Dr. Michael Murillo RBC 4.54 106/ul Normal 4.20-5.40 [facility] Comment on above: Performed By: #### C BC #### [facility] [address] [place] [address] Dr. Michael Murillo WBC 8.4 103/ul Normal 4.0-11.0 [facility] Comment on above: Performed By: #### C BC #### [facility] [address] [place] [address] Dr. Michael Murillo ER URINE PROFILEon 3 Bilirubin Ql (U) Negative Normal NEGATIVE [facility] Comment on above: Performed By: #### C ALCULI #### [facility] [address] [place] [address] Dr. Michael Murillo Clarity (U) CLEAR Normal CLEAR [facility] Comment on above: Performed By: #### C ALCULI #### [facility] [address] [place] [address] Dr. Michael Murillo Color (U) YELLOW Normal YELLOW [facility] Comment on above: Performed By: #### C ALCULI #### [facility] [address] [place] [address] Dr. Michael ALFONSO A micrscopic examination will be performed if indicated. Normal The [facility] Comment on above: Performed By: #### C ALCULI #### [facility] [address] [place] [address] Dr. Michael Murillo Glucose Ql (U) Negative Normal NEGATIVE [facility] Comment on above: Performed By: #### C ALCULI #### [facility] [address] [place] [address] Dr. Michael Murillo Hemoglobin Ql (U) LARGE Abnormal NEGATIVE The [facility] Comment on above: Performed By: #### C ALCULI #### [facility] [address] [place] [address] Dr. Michael Murillo Ketones Ql (U) Negative Normal NEGATIVE The [facility] Comment on above: Performed By: #### C ALCULI #### [facility] [address] [place] [address] Dr. Michael Murillo LEUKOCYTES Negative Normal NEGATIVE [facility] Comment on above: Performed By: #### C ALCULI #### [facility] [address] [place] [address] Dr. Michael Murillo Nitrite Ql (U) Negative Normal NEGATIVE The [facility] Comment on above: Performed By: #### C ALCULI #### [facility] [address] [place] [address] Dr. Michael Murillo pH (U) 8.0 [pH] Normal 5-9 [facility] Comment on above: Performed By: #### C ALCULI #### [facility] [address] [place] [address] Dr. Michael Murillo Protein (U) [Mass/Vol] 100 mg/dL Abnormal NEGATIVE/ TRACE The [facility] Comment on above: Performed By: #### C ALCULI #### [facility] [address] [place] [address] Dr. Michael Murillo SPEC GRAVITY 1.015 Normal 1.005-<=1.02 5 [facility] Comment on above: Performed By: #### C ALCULI #### [facility] [address] [place] [address] Dr. Michael Murillo UR MICRO IND INDICATED Normal [facility] Comment on above: Performed By: #### C ALCULI #### [facility] [address] [place] [address] Dr. Michael Murillo Urobilinogen Qn (U) 0.2 {Kunal'U}/dL Normal 0.2 - 1. 0 [facility] Comment on above: Performed By: #### C ALCULI #### [facility] [address] [place] [address] Dr. Michael Murillo PROF 14(COMP METB)on 023 Albumin [Mass/Vol] 4.0 g/dL Normal 3.4-5.0 [facility] Comment on above: Performed By: #### C CHRISTOS, CMP #### [facility] [address] [place] [address] Dr. Michael Murillo Albumin/Globulin [Mass ratio] 1.1 {ratio} Normal [facility] Comment on above: Performed By: #### C CHRISTOS, CMP #### [facility] [address] [place] [address] Dr. Michael Murillo ALP [Catalytic activity/Vol] 104 U/L Normal 46-116 [facility] Comment on above: Performed By: #### C CHRISTOS, CMP #### [facility] [address] [place] [address] Dr. Michael Murillo ALT [Catalytic activity/Vol] 30 U/L Normal 14-59 [facility] Comment on above: Performed By: #### C CHRISTOS, CMP #### [facility] [address] [place] [address] Dr. Michael Murillo Anion gap [Moles/Vol] 13.0 mmol/L Normal [facility] Comment on above: Performed By: #### C PAWELM, CMP #### [facility] [address] [place] [address] Dr. Michael Murillo AST [Catalytic activity/Vol] 23 U/L Normal 15-37 [facility] Comment on above: Performed By: #### C CHRISTOS, CMP #### [facility] [address] [address] [address] Michael Murillo Bilirubin [Mass/Vol] 0.3 mg/dL Normal 0.2-1.0 [facility] Comment on above: Performed By: #### C CHRISTOS, CMP #### [facility] [address] [address] [address] Michael Murillo Calcium [Mass/Vol] 9.0 mg/dL Normal 8.5-10.1 [facility] Comment on above: Performed By: #### C CHRISTOS, CMP #### [facility] [address] [place] [address] Dr. Michael Murillo Chloride [Moles/Vol] 101 mmol/L Normal 98-107 [facility] Comment on above: Performed By: #### C CHRISTOS, CMP #### [facility] [address] [place] [address] Dr. Michael Murillo CO2 [Moles/Vol] 29.2 mmol/L Normal 21.0-32.0 [facility] Comment on above: Performed By: #### C CHRISTOS, CMP #### [facility] [address] [place] [address] Dr. Michael Murillo Creatinine [Mass/Vol] 0.97 mg/dL Normal 0.55-1.02 [facility] Comment on above: Performed By: #### C CHRISTOS, CMP #### [facility] [address] [place] [address] Dr. Michael Murillo EGFR-AF IVORIAN >60 Normal >=60 [facility] Comment on above: Performed By: #### C CHRISTOS, CMP #### [facility] [address] [place] [address] Dr. Michael Murillo EGFR-NON AF IVORIAN 59 mL/min/1.73m2 Critically low >=60 [facility] Comment on above: Performed By: #### C CHRISTOS, CMP #### [facility] [address] [address] [address] Michael Murillo Globulin (S) [Mass/Vol] 3.5 g/dL Normal [facility] Comment on above: Performed By: #### C CHRISTOS, CMP #### [facility] [address] [address] [address] Michael Murillo Glucose [Mass/Vol] 106 mg/dL Normal 74-106 [facility] Comment on above: Performed By: #### C CHRISTOS, CMP #### [facility] [address] [address] [address] Michael Murillo Potassium [Moles/Vol] 4.2 mmol/L Normal 3.5-5.1 [facility] Comment on above: Performed By: #### C CHRISTOS, CMP #### [facility] [address] [address] [address] Michael Murillo Protein [Mass/Vol] 7.5 g/dL Normal 6.4-8.2 [facility] Comment on above: Performed By: #### C CHRISTOS, CMP #### [facility] [address] [address] [address] Michael Murilol Sodium [Moles/Vol] 139 mmol/L Normal 136-145 [facility] Comment on above: Performed By: #### C CHRISTOS, CMP #### [facility] [address] [address] [address] Michael Murillo Urea nitrogen [Mass/Vol] 19.0 mg/dL Critically high 7.0-18.0 [facility] Comment on above: Performed By: #### C CHRISTOS, CMP #### [facility] [address] [place] [address] Dr. Michael Murillo Urea nitrogen/Creatinine [Mass ratio] 19.6 mg/mg Normal [facility] Comment on above: Performed By: #### C CHRISTOS, CMP #### [facility] [address] [address] [address] Michael Murillo URINE MICROSCOPIC ONLYon BACTERIA NONE SEEN Normal NONE SEEN The [facility] Comment on above: Performed By: #### C ALCULI #### [facility] [address] [place] [address] Dr. Michael Murillo Bacteria identified Cx Nom (U) NOT INDICATED Normal [facility] Comment on above: Performed By: #### C ALCULI #### [facility] [address] [place] [address] Dr. Michael Murillo CAST NONE SEEN Normal NONE SEEN The [facility] Comment on above: Performed By: #### C ALCULI #### [facility] [address] [place] [address] Dr. Michael Murillo Crystals LM Nom (Urine sed) NONE SEEN Normal NONE SEEN The [facility] Comment on above: Performed By: #### C ALCULI #### [facility] [address] [place] [address] Dr. Michael Murillo Epithelial cells LM Ql (Urine sed) RARE Normal NONE SEEN /RARE The [facility] Comment on above: Performed By: #### C ALCULI #### [facility] [address] [place] [address] Dr. Michael Murillo MUCOUS NONE SEEN Normal NONE SEEN The [facility] Comment on above: Performed By: #### C ALCULI #### [facility] [address] [place] [address] Dr. Michael Murillo RBC (U) [#/Vol] /uL Abnormal 0-2 [facility] Comment on above: Performed By: #### C ALCULI #### [facility] [address] [place] [address] Dr. Michael Murillo WBC 0-2 Abnormal NONE SEEN The [facility] Comment on above: Performed By: #### C ALCULI #### [facility] [address] [place] [address] Dr. Michael Murillo CBC AUTO DIFFon 06-19-2022 BASO # 0.1 103/ul Normal 0.0-0.1 [facility] Comment on above: Performed By: #### C ALCULI #### [facility] [address] [place] [address] Dr. Michael Murillo Basophils/100 WBC (Bld) 0.8 % Normal 0.2-2.0 [facility] Comment on above: Performed By: #### C ALCULI #### [facility] [address] [place] [address] Dr. Michael Murillo EO # 0.1 103/ul Normal 0.0-0.7 [facility] Comment on above: Performed By: #### C ALCULI #### [facility] [address] [place] [address] Dr. Michael Murillo Eosinophils/100 WBC (Bld) 1.4 % Normal 0.9-7.0 [facility] Comment on above: Performed By: #### C ALCULI #### [facility] [address] [place] [address] Dr. Michael Murillo Erythrocyte distribution width (RBC) [Ratio] 12.1 % Normal 11.0-15.0 [facility] Comment on above: Performed By: #### C ALCULI #### [facility] [address] [place] [address] Dr. Michael Murillo Hematocrit (Bld) [Volume fraction] 40.5 % Normal 36.0-48.0 [facility] Comment on above: Performed By: #### C ALCULI #### [facility] [address] [place] [address] Dr. Michael Murillo Hemoglobin (Bld) [Mass/Vol] 13.3 g/dL Normal 12.0-16.0 [facility] Comment on above: Performed By: #### C ALCULI #### [facility] [address] [place] [address] Dr. Michael Murillo IG # 0.02 10e3/ul Normal 0.00-0.03 [facility] Comment on above: Performed By: #### C ALCULI #### [facility] [address] [place] [address] Dr. Michael Murillo IG % 0.3 % Normal 0.0-0.5 [facility] Comment on above: Performed By: #### C ALCULI #### [facility] [address] [place] [address] Dr. Michael Murillo LYMPH # 1.7 103/ul Normal 1.2-3.8 [facility] Comment on above: Performed By: #### C ALCULI #### [facility] [address] [place] [address] Dr. Michael Murillo Lymphocytes/100 WBC (Bld) 25.4 % Normal 20.5-60.0 [facility] Comment on above: Performed By: #### C ALCULI #### [facility] [address] [place] [address] Dr. Michael Murillo MANUAL DIFF REQ NO Normal [facility] Comment on above: Performed By: #### C ALCULI #### [facility] [address] [place] [address] Dr. Michael Murillo MCH (RBC) [Entitic mass] 30.8 pg Normal 26.7-34.0 [facility] Comment on above: Performed By: #### C ALCULI #### [facility] [address] [place] [address] Dr. Michael Murillo MCHC (RBC) [Mass/Vol] 32.8 g/dL Normal 29.9-35.2 [facility] Comment on above: Performed By: #### C ALCULI #### [facility] [address] [place] [address] Dr. Michael Murillo MCV (RBC) [Entitic vol] 93.8 fL Normal 81.0-99.0 [facility] Comment on above: Performed By: #### C ALCULI #### [facility] [address] [place] [address] Dr. Michael Murillo MONO # 0.7 103/ul Normal 0.3-0.8 [facility] Comment on above: Performed By: #### C ALCULI #### [facility] [address] [place] [address] Dr. Michael Murillo Monocytes/100 WBC (Bld) 10.4 % Normal 1.7-12.0 [facility] Comment on above: Performed By: #### C ALCULI #### [facility] [address] [place] [address] Dr. Michael Murillo NEUT # 4.1 103/ul Normal 1.4-6.5 [facility] Comment on above: Performed By: #### C ALCULI #### [facility] [address] [address] [address] Michael Murillo Neutrophils/100 WBC (Bld) 61.7 % Normal 43.0-75.0 [facility] Comment on above: Performed By: #### C ALCULI #### [facility] [address] [place] [address] Dr. Michael Murillo Platelet mean volume (Bld) [Entitic vol] 10.0 fL Normal 9.5-13.5 [facility] Comment on above: Performed By: #### C ALCULI #### [facility] [address] [place] [address] Dr. Michael Murillo PLT 245 103/ul Normal 150-450 [facility] Comment on above: Performed By: #### C ALCULI #### [facility] [address] [place] [address] Dr. Michael Murillo RBC 4.32 106/ul Normal 4.20-5.40 [facility] Comment on above: Performed By: #### C ALCULI #### [facility] [address] [place] [address] Dr. Michael Murillo WBC 6.7 103/ul Normal 4.0-11.0 [facility] Comment on above: Performed By: #### C ALCULI #### [facility] [address] [place] [address] Dr. Michael Murillo PROF CHEM 8 (BAS METB)on Anion gap [Moles/Vol] 11.9 mmol/L Normal [facility] Comment on above: Performed By: #### C ALCULI #### [facility] [address] [place] [address] Dr. Michael Murillo Calcium [Mass/Vol] 9.1 mg/dL Normal 8.5-10.1 [facility] Comment on above: Performed By: #### C ALCULI #### [facility] [address] [place] [address] Dr. Michael Murillo Chloride [Moles/Vol] 100 mmol/L Normal 98-107 [facility] Comment on above: Performed By: #### C ALCULI #### [facility] [address] [address] [address] Michael Murillo CO2 [Moles/Vol] 28.3 mmol/L Normal 21.0-32.0 [facility] Comment on above: Performed By: #### C ALCULI #### [facility] [address] [place] [address] Dr. Michael Murillo Creatinine [Mass/Vol] 0.83 mg/dL Normal 0.55-1.02 [facility] Comment on above: Performed By: #### C ALCULI #### [facility] [address] [place] [address] Dr. Michael Murillo EGFR-AF IVORIAN >60 Normal >=60 [facility] Comment on above: Performed By: #### C ALCULI #### [facility] [address] [place] [address] Dr. Michael Murillo EGFR-NON AF IVORIAN >60 Normal >=60 [facility] Comment on above: Performed By: #### C ALCULI #### [facility] [address] [place] [address] Dr. Michael Murillo Glucose [Mass/Vol] 97 mg/dL Normal 74-106 [facility] Comment on above: Performed By: #### C ALCULI #### [facility] [address] [place] [address] Dr. Michael Murillo Potassium [Moles/Vol] 4.2 mmol/L Normal 3.5-5.1 [facility] Comment on above: Performed By: #### C ALCULI #### [facility] [address] [place] [address] Dr. Michael Murillo Sodium [Moles/Vol] 136 mmol/L Normal 136-145 [facility] Comment on above: Performed By: #### C ALCULI #### [facility] [address] [place] [address] Dr. Michael Murillo Urea nitrogen [Mass/Vol] 18.0 mg/dL Normal 7.0-18.0 [facility] Comment on above: Performed By: #### C ALCULI #### [facility] [address] [place] [address] Dr. Michael Murillo Urea nitrogen/Creatinine [Mass ratio] 21.7 mg/mg Normal [facility] Comment on above: Performed By: #### C ALCULI #### [facility] [address] [place] [address] Dr. Michael Murillo PROTIMEon 06-19-2022 INR Coag (PPP) [Relative time] {INR} Normal [facility] Comment on above: Performed By: #### C ALCULI #### [facility] [address] [place] [address] Dr. Michael Murillo INR GUIDELINES SEE BELOW Normal [facility] Comment on above: Result Comment: JORGE RED INR: 2.0 - 3.0 CONDITIONS NOT LISTED BELOW 2.5 - 3.5 FOR PROSTHETIC HEART VALVE REPLACEMENT 2.5 - 3.5 RECURRENT THROMBOSIS Performed By: #### C ALCULI #### [facility] [address] [place] [address] Dr. Michael Murillo PT Coag (PPP) [Time] 9.8 s Normal 9.0-11.6 [facility] Comment on above: Performed By: #### C ALCULI #### [facility] [address] [place] [address] Dr. Michael Murillo PTTon 06-19-2022 aPTT Coag (Bld) [Time] 28.9 s Normal 22.3-36.2 [facility] Comment on above: Performed By: #### C ALCULI #### [facility] [address] [place] [address] ABD/PELVIS WO CONon [...] by: BENI ORTIZ Date: 2022-05-15 13:08 Normal [facility] XR KUB 1 VIEWon 03-24-2022 XR [...] by: JUDSON ENGLISH Date: 2022-03-24 06:57 Normal [facility] Vital Signs Date Time Vital Sign Value Performing Clinician Facility 06-06-2024 [id number] Body height 162.6 cm Olivia Corbett MD Work Phone: [facility] 06-06-2024 [id number] Body mass index (BMI) [Ratio] 26.45 kg/m2 Olivia Corbett MD Work Phone: [facility] 06-06-2024 [id number] Body weight 69.9 kg Olivia Corbett MD Work Phone: [facility] 06-06-2024 08:11-0500 Diastolic blood pressure 87 mm[Hg] Olivia Corbett MD Work Phone: [facility] 06-06-2024 08:11-0500 Systolic blood pressure 153 mm[Hg] Olivia Corbett MD Work Phone: [facility] 05-05-2024 14:11-0500 Body height 165.1 cm Mckayla Erickson [employer] Work Phone: [facility] 05-05-2024 14:11-0500 Body mass index (BMI) [Ratio] 27.46 kg/m2 Mckayla Erickson [employer] Work Phone: [facility] 05-05-2024 [id number] Body weight 74.84 kg Mckayla Erickson [employer] Work Phone: [facility] 12-25-2023 09:44-0400 Blood Pressure Location Elana Orzech [facility] 12-25-2023 09:44-0400 Body temperature 98.6 [degF] Elana Orzech [facility] 12-25-2023 09:44-0400 Diastolic blood pressure 76 mm[Hg] Elana Orzech [facility] 12-25-2023 09:44-0400 Heart rate 48 /min Elana Orzech [facility] 12-25-2023 09:44-0400 Respiratory rate 16 /min Elana Orzech [facility] 12-25-2023 09:44-0400 Systolic blood pressure 127 mm[Hg] Elana Orzech [facility] 10-23-2023 12:11-0400 Heart rate 51 /min Aubrie Alfonsoe [facility] 10-23-2023 12:11-0400 SaO2% (BldA) [Mass fraction] 96 % Aubrie Lue [facility] 10-23-2023 12:11-0400 Respiratory rate 16 /min Aubrie Lue [facility] 10-23-2023 12:10-0400 Blood Pressure Location Aubrie Lue [facility] 10-23-2023 12:10-0400 Diastolic blood pressure 77 mm[Hg] Aubrie Lue [facility] 10-23-2023 12:10-0400 Mean blood pressure 93 mm[Hg] Aubrie Lue [facility] 10-23-2023 12:10-0400 Systolic blood pressure 125 mm[Hg] Aubrie Lue [facility] 10-23-2023 11:21-0400 Heart rate 47 /min Aubrie Lue [facility] 10-23-2023 11:21-0400 SaO2% (BldA) [Mass fraction] 99 % Aubrie Lue [facility] 10-23-2023 11:20-0400 Diastolic blood pressure 85 mm[Hg] Aubrie Lue [facility] 10-23-2023 11:20-0400 Mean blood pressure 107 mm[Hg] Aubrie Lue [facility] 10-23-2023 11:20-0400 Systolic blood pressure 150 mm[Hg] Aubrie Lue [facility] 10-23-2023 11:20-0400 Respiratory rate 16 /min Aubrie Lue [facility] 10-23-2023 11:15-0400 Blood Pressure Location Aubrie Lue [facility] 10-23-2023 11:15-0400 Body temperature 97.16 [degF] Aubrie Lue [facility] 10-23-2023 11:15-0400 Diastolic blood pressure 74 mm[Hg] Aubrie Lue [facility] 10-23-2023 11:15-0400 Heart rate 45 /min Aubrie Lue [facility] Comment on above: Result Comment: asymptomatic, preop HR n oted for 55 10-23-2023 11:15-0400 Mean blood pressure 90 mm[Hg] Aubrie Lue [facility] 10-23-2023 11:15-0400 Respiratory rate 12 /min Aubrie Lue [facility] Comment on above: Result Comment: rise and fall not caught with EKG leads, manually counted 10-23-2023 11:15-0400 SaO2% (BldA) [Mass fraction] 95 % Aubrie Lue [facility] 10-23-2023 11:15-0400 Systolic blood pressure 123 mm[Hg] Aubrie Lue [facility] 10-23-2023 11:00-0400 Mean blood pressure 87 mm[Hg] Aubrie Lue [facility] 10-23-2023 10:55-0400 Mean blood pressure 82 mm[Hg] Aubrie Lue [facility] 10-23-2023 10:55-0400 Respiratory rate 15 /min Aubrie Lue [facility] 10-23-2023 10:50-0400 Respiratory rate 12 /min Aubrie Lue [facility] 10-23-2023 10:46-0400 Body temperature 96.98 [degF] [facility] Lue [facility] Comment on above: Result Comment: warm blanket applied 10-23-2023 07:10-0400 Mean blood pressure 92 mm[Hg] Aubrie Lue [facility] 10-23-2023 07:10-0400 Heart rate 58 /min Aubrie Lue [facility] 10-23-2023 07:08-0400 Body temperature 97.7 [degF] Aubrie Lue [facility] 10-19-2023 09:48-0400 Diastolic blood pressure 82 mm[Hg] Aubrie Lue [facility] 10-19-2023 09:48-0400 Heart rate 49 /min Aubrie Lue [facility] 10-19-2023 09:48-0400 Mean blood pressure 104 mm[Hg] Aubrie Lue [facility] 10-19-2023 09:48-0400 Systolic blood pressure 147 mm[Hg] Aubrie Lue [facility] 10-19-2023 09:48-0400 Heart rate 50 /min Aubrie Lue [facility] 10-19-2023 09:48-0400 SaO2% (BldA) [Mass fraction] 99 % Aubrie Lue [facility] 10-19-2023 09:48-0400 Body temperature 98.06 [degF] Aubrie Lue [facility] 10-19-2023 09:48-0400 Diastolic blood pressure 82 mm[Hg] Aubrie Lue [facility] 10-19-2023 09:48-0400 Mean blood pressure 106 mm[Hg] [facility] Lue [facility] 10-19-2023 09:48-0400 Systolic blood pressure 153 mm[Hg] Aub[facility] Lue [facility] 10-19-2023 09:47-0400 Respiratory rate 16 /min Aubrie Lue [facility] 09-05-2023 11:03-0400 Blood Pressure Location KAILASH TRE [facility] 09-05-2023 11:03-0400 Body temperature 98.78 [degF] KAILASH TRE [facility] 09-05-2023 11:03-0400 Diastolic blood pressure 88 mm[Hg] KAILASH TRE [facility] 09-05-2023 11:03-0400 Heart rate 78 /min KAILASH TRE [facility] 09-05-2023 11:03-0400 Systolic blood pressure 144 mm[Hg] KAILASH TRE [facility] 06-05-2023 08:55-0500 Blood Pressure Location KAILASH TRE [facility] 06-05-2023 08:55-0500 Diastolic blood pressure 89 mm[Hg] KAILASH TRE [facility] 06-05-2023 08:55-0500 Heart rate 82 /min KAILASH TRE [facility] 06-05-2023 08:55-0500 Respiratory rate 16 /min KAILASH TOLEDO [facility] 06-05-2023 08:55-0500 Systolic blood pressure 144 mm[Hg] KAILASH TRE [facility] 10-11-2022 09:53-0400 Blood Pressure Location Aubrie Lue [facility] 10-11-2022 09:53-0400 Diastolic blood pressure 78 mm[Hg] Aubrie Lue [facility] 10-11-2022 09:53-0400 Heart rate 68 /min Aubrie Lue [facility] 10-11-2022 09:53-0400 Respiratory rate 16 /min Aubrie Lue [facility] 10-11-2022 09:53-0400 Systolic blood pressure 140 mm[Hg] Aubrie Lue [facility] 06-16-2022 11:43-0500 Diastolic blood pressure 93 mm[Hg] Aubrie Lue [facility] 06-16-2022 11:43-0500 Mean blood pressure 119 mm[Hg] Aubrie Lue [facility] 06-16-2022 11:43-0500 Systolic blood pressure 172 mm[Hg] Aubrie Lue [facility] 06-16-2022 11:13-0500 Blood Pressure Location Aubrie Lue [facility] 06-16-2022 11:13-0500 Diastolic blood pressure 99 mm[Hg] Aubrie Lue [facility] 06-16-2022 11:13-0500 Heart rate 64 /min Aubrie Lue [facility] 06-16-2022 11:13-0500 Systolic blood pressure 166 mm[Hg] Aubrie Lue [facility] 03-24-2022 13:32-0500 Blood Pressure Location Aubrie Lue [facility] 03-24-2022 13:32-0500 Diastolic blood pressure 85 mm[Hg] Aubrie Lue [facility] 03-24-2022 13:32-0500 Heart rate 72 /min Aubrie Lue [facility] 03-24-2022 13:32-0500 Systolic blood pressure 170 mm[Hg] Aubrie Lue [facility] Encounters Encounter Date Encounter Type Care Provider Facility Start: 06-20-2024 End: 06-20-2024 ambulatory [facility] Start: 06-06-2024 End: 06-06-2024 Patient encounter procedure Olivia Corbett MD Work Phone: Rheumatology Comment on above: Pain in joint, multi ple sites (Primary Dx); Joint stiffness Start: 05-21-2024 End: 05-21-2024 ambulatory [facility] Start: 05-05-2024 End: 05-05-2024 Bamboo flowsheet Mckayla Erickson NP Work Phone: [facility] Start: 05-05-2024 End: 05-05-2024 Bamboo flowsheet Mckayla Erickson SOLAR ELECTRIC/PHOTOVOLTAIC INSTALLER Work Phone: [facility] Start: 05-05-2024 End: 05-05-2024 Office outpatient new 30 minutes Mckayla Erickson SOLAR ELECTRIC/PHOTOVOLTAIC INSTALLER Work Phone: [facility] Comment on above: Lumbar radiculopathy (Primary Dx); Lumbar pain Start: 05-05-2024 End: 05-05-2024 ambulatory MCKAYLA ERICKSON Not Available Start: 04-02-2024 End: 04-02-2024 ambulatory DASIA [facility] Start: 12-25-2023 End: 12-25-2023 Lab Drop off Elana X Orzech [facility] Start: 12-25-2023 End: 12-25-2023 ambulatory Elana X Orzech Facility[place] Start: 12-25-2023 End: 12-25-2023 Patient encounter procedure Elana X Orzech [facility] Start: 10-23-2023 End: 10-23-2023 Admission to same day surgery center Aubrie Nolasco [facility] Start: 10-23-2023 End: 10-23-2023 ambulatory Aubrie Nolasco Facility:[facility] Start: 10-19-2023 End: 10-19-2023 ambulatory Aubrie Nolasco Facility:[facility] Start: 10-19-2023 End: 10-19-2023 Patient encounter procedure Aubrie Nolasco [facility] Start: 10-18-2023 End: 10-18-2023 ambulatory ADI NOLASCO Not Available Start: 09-19-2023 End: 10-06-2023 Pre-admission assessment Aubrie Nolasco [facility] Start: 09-05-2023 End: 09-05-2023 ambulatory KAILASH E TRE Facility:[facility] Start: 09-05-2023 End: 09-05-2023 Lab Drop off KAILASH E TRE [facility] Start: 09-05-2023 End: 09-05-2023 ambulatory KAILASH E TRE Facility: [place] Start: 09-05-2023 End: 09-05-2023 Patient encounter procedure KAILASH Piero TRE [facility] Start: 06-05-2023 End: 06-05-2023 Lab Drop off KAILASH TOLEDO [facility] Start: 06-05-2023 End: 06-05-2023 Patient encounter procedure KAILASH Piero TOLEDO [facility] Start: 10-30-2022 End: 10-30-2022 Patient encounter procedure Aubrie Nolasco [facility] Start: 10-11-2022 End: 10-11-2022 Patient encounter procedure Aubrie Alfonsoe [facility] Start: 10-10-2022 End: 10-11-2022 ambulatory AUBRIE NOLASCO . Facility: Start: 09-11-[address] PHILLIP Velez Facili ty:[facility] Start: 08-23-[address] HPILLIP Velez Facili ty:[facility] Start: 08-02-2022 End: 08-03-[address] PHILLIP BRUNER . Facility:[facility] Start: 07-27-2022 End: 07-28-[address] PHILLIP BRUNER . Facility:[facility] Start: 07-25-2022 Encounter for genera l adult medical examination without abnormal findings DR PHILLIP BRUNER . [facility] Start: 07-21-2022 End: 07-22-[address] PHILLIP BRUNER . Facility:[facility] Start: 07-21-2022 End: 07-22-2022 Encounter for general adult medical examination without abnormal findings DR PHILLIP BRUNER . Facility:[facility] Start: 07-20-2022 End: 07-21-[address] PHILLIP BRUNER . Facility:[facility] Start: 07-13-2022 ambulatory AUBRIE M LUE . Facility: [facility] Start: 07-10-2022 End: 07-11-[address] PHILLIP BRUNER . Facility:[facility] Start: 06-24-2022 End: 06-25-2022 ambulatory CHANEL ADENIKE . Facility:[facility] Start: 06-21-2022 Encounter for preprocedural cardiovascular examination AUBRIE M LUE . [facility] Start: 06-21-2022 Encounter for preprocedural laboratory examination AUBRIE M LUE . [facility] Start: 06-21-2022 End: 06-21-2022 ambulatory AUBRIE M LUE . Facility:[facility] Start: 06-19-2022 End: 06-20-2022 ambulatory AUBRIE M LUE . Facility:[facility] Start: 06-19-2022 End: 06-20-2022 Encounter for preprocedural laboratory examination AUBRIE M LUE . Facility:[facility] Start: 06-16-2022 End: 06-16-2022 Patient encounter procedure Aubrie M. Lue [facility] Start: 05-12-2022 End: 05-13-2022 ambulatory AUBRIE M LUE . Facility:[facility] Start: 04-12-2022 End: 04-12-2022 ambulatory AUBRIE M LUE . Facility:[facility] Start: 03-24-2022 End: 03-24-2022 Patient encounter procedure Aubrie M. Lue [facility] Start: 03-23-2022 End: 03-24-2022 ambulatory KAILASH TOLEDO Facility:[facility] Start: 01-17-[address] PHILLIP BRUNER . Facili ty:[facility] Start: 08-09-2021 End: 08-09-2021 Patient encounter procedure Tracy Christian Jr. [facility] Page Procedures Date Procedure Procedure Detail Performing Clinician Start: 05-05-2024 Radex spine lumbosac ral 2/3 views Mckayla Erickson NP Work Phone: Start: 10-23-2023 Cystoscopy Aubrie Lue Start: 10-25-2022 Cystoscopic laser lithotripsy of ureteric calculus KAILASH TOLEDO Start: 06-21-2022 Cystoscopic insertio n of ureteric stent Aubrie Lue Start: 06-21-2022 Ureteroscopy Aubrie Lue Start: 06-23-2021 Ankle region structu re (body structure) Tracy Christian Jr. Comment on above: nerve repair Start: 06-23-2020 Extracorporeal shock wave lithotripsy of calculus of kidney Tracy Christian Jr. Appendectomy Tracy Velez Arthroscopy of shoulder Stormy y Lue Fixation of mandible Aubrie L ue Fixation of mandible Elana Orzech Hysterectomy Tracy Velez Ligation of fallopian tube D kel Christian Jr. Neuroplasty of major peripheral nerve of leg Aubrie Lue Surgical manipulatio n of the lumbar spine Aubrie Nolasco Tonsillectomy Tracy lerma Plan of Treatment Date Care Activity Detail Author Start: 2038 RSV Vaccine (1 - 1-d ose 75+ series) RSV Vaccine (1 - 1-dose 75+ series) [facility] Start: 03-01-2026 Urine microalbumin profile DTaP,Tdap,Td Vaccine (2 - Td or Tdap) [facility] Start: 02-20-2025 Diabetes Screening Diabetes Screenin g [facility] Start: 09-10-2024 ambulatory Ambulatory Facility:[facility] Start: 06-06-2024 End: 09-05-2024 Cyclic citrullinated peptide IgG Ab [Units/volume] in Serum or Plasma [facility] Comment on above: Expected: 06/06/2024 , Expires: 09/05/2024 Start: 06-06-2024 End: 09-05-2024 Rheumatoid factor [Units/volume] in Serum or Plasma [facility] Work Phone: Comment on above: Expected: 06/06/2024 , Expires: 09/05/2024 Start: 05-05-2024 End: 05-05-2024 Patient encounter procedure 05/05/2024 2:00 PM EST Office Visit [facility] [address] [place] [address] Mckayla Erickson, SOLAR ELECTRIC/PHOTOVOLTAIC INSTALLER [address] [place] [address] Arrived [facility] Comment on above: Arrived Start: 01-13-2024 Covid-19 Vaccine ( season) Covid-19 Vaccine ( season) [facility] Start: 01-13-2024 Influenza vaccination Influenza Vacc ine (#1) [facility] Start: 06-03-2015 Pneumococcal Vaccine : 50+ (2 of 2 - PCV) Pneumococcal Vaccine: 50+ (2 of 2 - PCV) [facility] Start: 2013 Shingrix Vaccine (1 of 2) Shingrix Vaccine (1 of 2) [facility] Start: 01-27-2008 Lipid panel Lipid Screening [facility] Start: 01-27-2008 Screening for malign ant neoplasm of colon [facility] Start: 2003 Screening for malign ant neoplasm of breast [facility] Start: 1993 Screening for malign ant neoplasm of cervix [facility] Start: 01-27-1984 Screening for malign ant neoplasm of cervix [facility] Start: 1981 Anxiety Screening Anxiety Screening [facility] Start: 1981 Depression Screening Depression Scre ening [facility] Start: 1981 HIV screening HIV Screening [facility] Start: 1963 Screening for malign ant neoplasm of colon [facility] Immunizations Immunization Date Immunization Notes Care Provider Reymundo ramirez 01-12-2023 influenza virus vacc ine, unspecified formulation KAILASH TOLEDO [facility] 02-13-2022 influenza virus vacc ine, unspecified formulation Mckayla Erickson NP Work Phone: [facility] 02-13-2022 influenza, unspecifi ed formulation Aubrie Lue [facility] 03-10-2021 influenza virus vacc ine, unspecified formulation Mckayla Erickson NP Work Phone: [facility] 03-10-2021 influenza, unspecifi ed formulation Aubrie Lue [facility] 03-09-2021 SARS-CoV-2 (COVID-19 ) mRNA-1273 vaccine Aubrie Lue [facility] 06-11-2020 SARS-CoV-2 (COVID-19 ) Ad26 vaccine, recombinant Tracy Christian Jr. [facility] 06-09-2020 SARS-CoV-2 (COVID-19 ) mRNA-1273 vaccine Aubrie Lue [facility] 05-21-2020 SARS-CoV-2 (COVID-19 ) Ad26 vaccine, recombinant Tracy Gino Saleh [facility] 05-19-2020 SARS-CoV-2 (COVID-19 ) mRNA-1273 vaccine Aubrie Lupiero [facility] 05-12-2020 SARS-CoV-2 (COVID-19 ) mRNA-1273 vaccine Aubrie Lupiero [facility] 02-25-2020 influenza virus vacc ine, unspecified formulation Aubrie Lue [facility] 02-25-2020 influenza, seasonal, injectable Mckayla Erickson NP Work Phone: [facility] 03-01-2016 tetanus toxoid, redu ann diphtheria toxoid, and acellular pertussis vaccine, adsorbed Aubrie Natypiero [facility] 05-14-2011 pneumococcal polysaccharide vaccine, 23 valent Aubrie Natypiero [facility] 03-24-2009 novel influenza-H1N1 -09, preservative-free, injectable Mckayla Erickson NP Work Phone: [facility] Payers Date Payer Category Payer [facility] [id number] 2022 Unknown 2019 Unknown [id number] 1965 Unknown [id number] 2.16.840.1.709805.3.579.2. 593 1965 Unknown [id number] 2.16.840.1.207649.3.579.2. 593 1963 Unknown [id number] 2.16.840.1.611076.3.579.2. 593 1963 Unknown [id number] 2.16.840.1.584994.3.579.2. 593 1963 Unknown [id number] 2.16.840.1.178960.3.579.2. 593 1963 Unknown [id number] 2.16.840.1.723992.3.579.2. 593 1963 Unknown [id number] 2.16.840.1.551392.3.579.2. 593 1963 Unknown [id number] 2.16.840.1.770400.3.579.2. 593 1963 Unknown [id number] 2.16.840.1.945278.3.579.2. 593 1963 Unknown [id number] 2.16.840.1.896015.3.579.2. 593 1963 Unknown [id number] 2.16.840.1.284238.3.579.2. 593 1963 Unknown [id number] 2.16.840.1.823139.3.579.2. 593 1963 Unknown [id number] 2.16.840.1.736354.3.579.2. 593 1963 Unknown [id number] 2.16.840.1.695877.3.579.2. 593 1963 Unknown [id number] 2.16.840.1.111815.3.579.2. 593 1963 Unknown [id number] 2.16.840.1.314454.3.579.2. 593 1963 Unknown [id number] 2.16.840.1.399971.3.579.2. 1259 1963 Unknown [id number] 2.16.840.1.855195.3.579.2. 1259 1963 Unknown [id number] 2.16.840.1.773479.3.579.2. 1259 1963 Unknown [id number] 2.16.840.1.292618.3.579.2. 1286 1963 Unknown [id number] 2.16.840.1.334679.3.579.2. 1286 1963 Unknown [id number] 2.16.840.1.481956.3.579.2. 1286 1963 Unknown [id number] 2.16.840.1.080853.3.579.2. 727 1963 Unknown [id number] 2.16.840.1.218942.3.579.2. 727 1963 Unknown [id number] 2.16.840.1.528510.3.579.2. 727 1963 Unknown [id number] 2.16.840.1.487267.3.579.2. 727 1963 Unknown [id number] 2.16.840.1.161864.3.579.2. 727 1963 Unknown [id number] 2.16.840.1.336685.3.579.2. 727 1963 Unknown [id number] 2.16.840.1.365453.3.579.2. 727 1959 Unknown [id number] 1961 Unknown [id number] Social History Date Type Detail Facility Start: 07-15-2013 End: 01-28-2021 Tobacco smoking status Never smoked tobacco (finding) [facility] Tobacco smoking status Never [facility] Start: 09-13-2022 End: 04-28-2024 Sex Assigned At Female [facility] Start: 07-15-2013 End: 04-28-2024 Tobacco use and exposure Smokeless tobacco non-user [facility] Start: 04-28-2024 End: 05-05-2024 Alcoholic beverage intake Ex-drinker (finding) [facility] Start: 09-13-2022 End: 04-28-2024 History of Social function [facility] Start: 1965 Sex assigned at Not on file [facility] Start: 11-16-2014 Alcoholic beverage intake Current non-drinker of alcohol (finding) [facility] Medical Equipment Procedure Code Equipment Code Equipment Origin al Text Equipment Identifier Dates Stent Uret 7fr 2 6cm [facility] - [id number] Start: 07-06-2014 Functional Status Date Assessment Result Facility 12-25-2023 Functional Status N/A [facility] 10-19-2023 Functional Status No [facility] 09-05-2023 Functional Status N/A [facility] 06-05-2023 Functional Status N/A [facility] 10-30-2022 Functional Status N/A [facility] 10-11-2022 Functional Status N/A [facility] 06-16-2022 Functional Status N/A [facility] 03-24-2022 Functional Status N/A [facility] Clinical Notes 08-09-2021 to 06-06-2024 Olivia Corbett MD - 06/06/2024 8:15 AM Valerio Erickson NP - 05/05/2024 2:00 PM EST Note Date & Type Note Facility 06-06-2024 History of Present illness Narrative Eli Boyce is a 59 year old female who presents for arthralgias HPI:59 yr with h/o Anxiety and Major Depression, HTN, Nerve impingment, Medullary kidney disease with multiple stones, Herniated discs ?RA who is here to establish care Told in past she had RA, later told she did not have RA . Stopped all meds for RA in 2013 after visit here at [facility] and no worsening of arthralgias since stopping her meds. Has pain in both hands- chronic for years,since early . Moderate pain which is consant Also pain in both feet No swelling of these joints Em stiffness- few minutes +chronic back pain - s/p surgery 2017 No rash, ulcers, fevers, swollen lymph nodes, DVT/PE, raynauds, sicca symptoms, trouble swallowing red eyes, Chron's/UC or Psoriasis. Interesting history- Rheum in [place] treating patient for RA with multiple meds- MTX, Humira, Remicade, Orenica, Simponi and few others she cannot recall. Stopped all meds in 2013 as no improvement in arthralgias after seeing rheum specialist here at [facility] who did not suspect she had RA . MEDS/THERAPIES TRIED: NSAIDS TYPICAL DAY: REVIEW OF SYSTEMS GENERAL: No weight loss, malaise or fevers., SEE HPI HEENT: Negative for frequent or significant headaches, No changes in hearing or vision, no nose bleeds or other nasal problems RESPIRATORY: Negative for cough, wheezing or shortness of breath. CARDIOVASCULAR: Negative for chest pain, leg swelling or palpitations. GI: Negative for abdominal discomfort, blood in stools or black stools or change in bowel habits MUSCULOSKELETAL :see HPI SKIN: Negative for lesions, rash, and itching. PSYCH: Negative for sleep disturbance, mood disorder and recent psychosocial stressors. NEURO: No history of syncope, paralysis, seizures or tremors All other reviewed and negative other than HPI. PAST MEDICAL HISTORY Diagnosis Date Nephrolithiasis Ca Phos 90% 09/2014 Osteopenia Rheumatoid arthritis (HCC) seronegative ?. Negative as per Dr. Baez 02/2014 PAST SURGICAL HISTORY Procedure Laterality Date CHOLECYSTECTOMY CYSTO/URETER W/LITHOTRIPSY ESWL EXTENSIVE JAW SURGERY HYSTERECTOMY HX LEG/ANKLE SURGERY PROC UNLISTED left SHOULDER ARTHROSCOPY/SURG right ibuprofen (MOTRIN) 600 mg tablet Take 1 tablet by mouth every 6 hours as needed for Pain. HYDROcodone-acetaminophen (NORCO) 5-325 mg per tablet Take 1 tablet by mouth every 6 hours as needed. HYDROcodone-acetaminophen (NORCO) 5-325 mg per tablet Take 1 tablet by mouth every 6 hours as needed. docusate sodium (COLACE) 100 mg capsule Take 1 capsule by mouth twice daily. venlafaxine (EFFEXOR) 37.5 mg tablet Take 75 mg by mouth once daily. estrogens conjugated (PREMARIN) 0.3 mg tablet Take 1 tablet by mouth once daily. hydrochlorothiazide (HYDRODIURIL, ESIDRIX) 25 mg tablet Take 1 tablet by mouth twice daily. ibuprofen (MOTRIN) 600 mg tablet Take 600 mg by mouth every 6 hours as needed. oxybutynin (DITROPAN) 5 mg tablet Take 5 mg by mouth as needed. docusate sodium (COLACE) 100 mg capsule Take 1 capsule by mouth twice daily. tamsulosin (FLOMAX) 0.4 mg cp24 Take 1 capsule by mouth daily at bedtime. amitriptyline (ELAVIL) 25 mg tablet Take 25 mg by mouth daily at bedtime. Cholecalciferol, Vitamin D3, (VITAMIN D-3) 2,000 unit cap Take by mouth once daily. FAMILY HISTORY Problem Relation Age of Onset other (Rheumatoid Arthritis [Other]) Brother other (Osteroarthritis [Other]) Maternal Grandmother other (Pain [Other]) Mother Joint/muscle pain Cancer Maternal Grandmother Colon Cancer Stroke Father Heavy smoker and drinker Ischemic Heart Disease Father other (Kidney stones [Other]) Brother other (Kidney stones [Other]) Father Social History Tobacco Use Smoking status: Never Smokeless tobacco: Never Substance Use Topics Alcohol use: No Drug use: No BP 153/87 Ht 162.6 cm (5' 4 ) Wt 69.9 kg (154 lb 1.6 oz) LMP 08/05/2011 BMI 26.45 kg/m PHYSICAL EXAMINATION Physical Exam Vitals and nursing note reviewed. Constitutional: Appearance: Normal appearance. Skin: Negative for lesions, rash, and itching Eyes: Extraocular Movements: Extraocular movements intact. Pupils: Pupils are equal, round, and reactive to light. Abdominal: General: Abdomen is flat. Bowel sounds are normal. Palpations: Abdomen is soft. Neurological: Mental Status:Alert and oriented to person, place, and time. Musculoskeletal :ambulates well Mild pain of lumbar spine Mild pain on digits of bilateral hands No synovitis of any joints All joints with good ROM Tender joints-digits of both hands Swollen joints-none Labs and xrays Latest Ref Rng 07/07/2013 Sm Antibody <1.0 AI 0.3 DIRECTOR OF EVENT MANAGEMENT Antibody <1.0 AI 0.4 SSA Antibody <1.0 AI <0.2 SSB Antibody <1.0 AI <0.2 Centromere Ab <1.0 AI <0.2 Scleroderma Ab, IgG <1.0 AI <0.2 Marlin 1 Antibody <1.0 AI <0.2 Ribosomal DIRECTOR OF EVENT MANAGEMENT <1.0 AI <0.2 Chromatin Antibody <1.0 AI <0.2 CCP Antibody, IgG <20 Units <15 DNA Antibody w/Confirmation <30 IU/mL <12 Vitamin D 25 Hydroxy 31.0 - 80.0 ng/mL 37.2 Rheumatoid Factor <20 IU/mL <7 CK 30 - 220 U/L 37 CRP 0.0 - 1.0 mg/dL <0.1 WSR 0 - 15 mm/hr 5 IMP/PLAN: ASSESSMENT/PLAN: 1. Pain in joint, multiple sites - ICD9: 719.49, ICD10: M25.50 Previous history of RA - diagnosed by rheum in [place] and treated with multiple meds Evaluated by rheum at [facility] ( Dr Baez) on 05/06/24 and did not suspect RA Currently no objective evidence of inflammatory arthritis but will check labs and xrays - XR HAND GENERAL 3V PA/LAT/OBL BILATERAL - XR FOOT GENERAL 3V AP/LAT/OBL BILATERAL - SEDIMENTATION RATE, WESTERGREN - C-REACTIVE PROTEIN - RHEUMATOID FACTOR - CCP ANTIBODY IGG 2. Bone loss -currently on prolia dispensed by PCP 3. Osteoarthritis -generalized -recommend tylenol prn -recommend water therapy Olivia Corbett MD Consultation requested by self for an opinion regarding RA. My final recommendations will be communicated back to the requesting physician by way of shared Medical record or letter to requesting physician via US mail. Olivia Corbett MD documented in this encounter [facility] 05-05-2024 History of Present illness Narrative Images from the original note were not included. NAME: Eli Boyce : 1965 HISTORY OF PRESENT ILLNESS: NEW PT Eli Boyce is an 59 y.o. @ female. NEW PT, LUMBAR PAIN. PRIOR TX BY DR BRUNER WITH TORADOL INJX AND CORTISONE INJX PT NOTES SHE HAS FILED FOR DISABILITY, WAS RECOMMENDED TO COME IN FOR EVAL. PT NOTES MIDLINE LBP, INTERMITTENT. DESCRIBES PAIN THROBBING, IMPROVED BY REST. WORSE WITH REPETATIVE MOVEMENTS. + WAKE AT HS SOMETIMES. DENIES RADIATING PAIN. ADMITS N/T B/L LE N/T (HAS NEUROPATHY) PREVIOUS SX BY DR MENDOZA. USES ICE/HEAT, TAKING CELEBREX PRN, TYL PRN. TRIED MULTIPLE TOPICAL PAIN CREAMS. PAIN 4/10 WITH ACTIVITY, 2/10 AT REST. L5-S1 discectomy dos 12/25/[address] PARR PAST MEDICAL HISTORY: Past Medical History: Diagnosis Date Depression (CMS/HCC) Hypertension (CMS/HCC) Kidney stones Neuropathy B/L LE Osteopenia PAST SURGICAL HISTORY: Past Surgical History: Procedure Laterality Date ANKLE SURGERY Left CHOLECYSTECTOMY HYSTERECTOMY LUMBAR DISCECTOMY 2017 DR PARR MANDIBLE SURGERY SHOULDER SURGERY Right SOCIAL HISTORY: Social History Occupational History Not on file Tobacco Use Smoking status: Never Smokeless tobacco: Never Substance and Sexual Activity Alcohol use: Not Currently Drug use: Not on file Sexual activity: Yes control/protection: None ALLERGIES: No Known Allergies HOME MEDICATIONS: Current Outpatient Medications Medication Instructions ARIPiprazole (Abilify) 2 MG tablet Take 1 tablet by mouth every day for 90 days celecoxib (CeleBREX) 200 MG capsule Every 24 hours cholecalciferol (Vitamin D-3) 50 MCG (1999) capsule 1 capsule, Every 24 hours desvenlafaxine (PRISTIQ) 50 mg, Daily RT escitalopram (LEXAPRO) 20 mg, Oral, Daily estradiol (Estrace) 0.1 MG/GM vaginal cream Apply 1/2 APPLICATOR daily for 2 weeks; then twice weekly thereafter. Lopressor 50 MG tablet Every 24 hours mirtazapine (REMERON) 30 mg, Nightly REVIEW OF SYSTEMS: Review of Systems Vitals: Body mass index is 27.46 kg/m . Tobacco Use: Low Risk (05/05/2024) Patient History Smoking Tobacco Use: Never Smokeless Tobacco Use: Never Passive Exposure: Not on file Alcohol Use: Not on file PHYSICAL EXAM: Spine Musculoskeletal Exam Gait Gait is normal. Inspection Thoracolumbar Thoracolumbar inspection is normal. Erythema: none Swelling: none Palpation Thoracolumbar Thoracolumbar palpation is normal. Tenderness: present SI Joint: right and left Right Masses: none Muscle tone: normal Left Masses: none Muscle tone: normal Range of Motion Thoracolumbar Range of motion is normal. Flexion: normal. Extension: normal. Right Lateral bending: normal. Lateral rotation: normal. Left Lateral bending: normal. Lateral rotation: normal. Strength Thoracolumbar Right Extensor hallucis longus: 5/5. Tibialis anterior: 5/5. Tibialis posterior: 5/5. Plantar flexion: 5/5. Peroneals: 5/5. Quadriceps: 5/5. Hamstrin/5. Hip abductors: 5/5. Hip flexion: 5/5. Hip adduction: 5/5. Left Extensor hallucis longus: 5/5. Tibialis anterior: 5/5. Tibialis posterior: 5/5. Plantar flexion: 5/5. Peroneals: 5/5. Quadriceps: 5/5. Hamstrin/5. Hip abductors: 5/5. Hip flexion: 5/5. Hip adduction: 5/5. Sensory Spine sensation additional comments: Baseline neuropathy in b/l lower extremities Reflexes Thoracolumbar reflexes are normal. Right Quadriceps: 2/4 Achilles: 2/4 Clonus: normal Left Quadriceps: 2/4 Achilles: 2/4 Clonus: normal Neurovascular Thoracolumbar Thoracolumbar neurovascular exam is normal. Right Pulses - PT: normal Posterior tibial: 2+ Left Pulses - PT: normal Posterior tibial: 2+ Special Tests Thoracolumbar Right PHILL test: negative SLR: no back or leg pain Left PHILL test: negative SLR: no back or leg pain General Constitutional: appears stated age Psychiatric: normal mood and affect Neurological: alert and oriented x3 Skin: intact IMAGING: XR lumbar spine 2 or 3 views Imaging Result: 05/05/2024: AP and lateral of lumbar spine showed decreased disc space noted L1-T12. Anterior and posterior columns appeared to be anatomic. There was no acute Bony process including but not limited to fracture and/or dislocation. Significant DJD was noted with decreased disc space and endplate sclerosis at L5-S1. Impression: no acute findings of the lumbar spine. Mckayla Erickson MARKETING INFORMATION COORDINATOR-EXTENSION SERVICE ADVISOR Procedures Orders Placed This Encounter Procedures XR lumbar spine 2 or 3 views Order Specific Question: Reason for exam: Answer: PAIN ASSESSMENT: ICD-10-CM 1. Lumbar radiculopathy M54.16 2. Lumbar pain M54.50 XR lumbar spine 2 or 3 views PLAN: I reviewed xray findings with the patient and discussed treatment options, answered questions. She is noted to have baseline neuropathy in bilateral lower extremities. States she still gets low back pain occasional but it is intermittent and worse with work which requires repetitive movements. She is noted to have had previous L5-S1 discectomy with Dr. Parr. I discussed PT with patient for flareups and to continue working on stretching for day to day pain. She will follow up with our office as needed. Questions answered in laymen terms at the bedside. The diagnosis, home exercise plan and any ongoing restrictions/ recommendations reviewed. If unable to be reached in office, I recommend evaluation at nearest Emergency Room if any symptoms worsened or new symptoms develop for requiring urgent evaluation. documented in this encounter [facility] 12-25-2023 Hospital Discharge instructions Patient Education 12/25/2023 10:21:49 Overactive Bladder, Adult Overactive Bladder, Adult Overactive bladder is a condition in which a person has a sudden and frequent need to urinate. A person might also leak urine if he or she cannot get to the bathroom fast enough (urinary incontinence). Sometimes, symptoms can interfere with work or social activities. What are the causes? Overactive bladder is associated with poor nerve signals between your bladder and your brain. Your bladder may get the signal to empty before it is full. You may also have very sensitive muscles that make your bladder squeeze too soon. This condition may also be caused by other factors, such as: Medical conditions: ?Urinary tract infection. ?Infection of nearby tissues. ?Prostate enlargement. ?Bladder stones, inflammation, or tumors. ?Diabetes. ?Muscle or nerve weakness, especially from these conditions: ?A spinal cord injury. ?Stroke. ?Multiple sclerosis. ?Parkinson's disease. Other causes: ?Surgery on the uterus or urethra. ?Drinking too much caffeine or alcohol. ?Certain medicines, especially those that eliminate extra fluid in the body (diuretics). ?Constipation. What increases the risk? You may be at greater risk for overactive bladder if you: Are an older adult. Smoke. Are going through menopause. Have prostate problems. Have a neurological disease, such as stroke, dementia, Parkinson's disease, or multiple sclerosis (MS). Eat or drink alcohol, spicy food, caffeine, and other things that irritate the bladder. Are overweight or obese. What are the signs or symptoms? Symptoms of this condition include a sudden, strong urge to urinate. Other symptoms include: Leaking urine. Urinating 8 or more times a day. Waking up to urinate 2 or more times overnight. How is this diagnosed? This condition may be diagnosed based on: Your symptoms and medical history. A physical exam. Blood or urine tests to check for possible causes, such as infection. You may also need to see a health care provider who specializes in urinary tract problems. This is called a urologist. How is this treated? Treatment for overactive bladder depends on the cause of your condition and whether it is mild or severe. Treatment may include: Bladder training, such as: ?Learning to control the urge to urinate by following a schedule to urinate at regular intervals. ?Doing Kegel exercises to strengthen the pelvic floor muscles that support your bladder. Special devices, such as: ?Biofeedback. This uses sensors to help you become aware of your body's signals. ?Electrical stimulation. This uses electrodes placed inside the body (implanted) or outside the body. These electrodes send gentle pulses of electricity to strengthen the nerves or muscles that control the bladder. ?Women may use a plastic device, called a pessary, that fits into the vagina and supports the bladder. Medicines, such as: ?Antibiotics to treat bladder infection. ?Antispasmodics to stop the bladder from releasing urine at the wrong time. ?Tricyclic antidepressants to relax bladder muscles. ?Injections of botulinum toxin type A directly into the bladder tissue to relax bladder muscles. Surgery, such as: ?A device may be implanted to help manage the nerve signals that control urination. ?An electrode may be implanted to stimulate electrical signals in the bladder. ?A procedure may be done to change the shape of the bladder. This is done only in very severe cases. Follow these instructions at home: Eating and drinking Make diet or lifestyle changes recommended by your health care provider. These may include: ?Drinking fluids throughout the day and not only with meals. ?Cutting down on caffeine or alcohol. ?Eating a healthy and balanced diet to prevent constipation. This may include: ?Choosing foods that are high in fiber, such as beans, whole grains, and fresh fruits and vegetables. ?Limiting foods that are high in fat and processed sugars, such as fried and sweet foods. Lifestyle Lose weight if needed. Do not use any products that contain nicotine or tobacco. These include cigarettes, chewing tobacco, and vaping devices, such as e-cigarettes. If you need help quitting, ask your health care provider. General instructions Take stel-nqr-gupngpi and prescription medicines only as told by your health care provider. If you were prescribed an antibiotic medicine, take it as told by your health care provider. Do not stop taking the antibiotic even if you start to feel better. Use any implants or pessary as told by your health care provider. If needed, wear pads to absorb urine leakage. Keep a log to track how much and when you drink, and when you need to urinate. This will help your health care provider monitor your condition. Keep all follow-up visits. This is important. Contact a health care provider if: You have a fever or chills. Your symptoms do not get better with treatment. Your pain and discomfort get worse. You have more frequent urges to urinate. Get help right away if: You are not able to control your bladder. Summary Overactive bladder refers to a condition in which a person has a sudden and frequent need to urinate. Several conditions may lead to an overactive bladder. Treatment for overactive bladder depends on the cause and severity of your condition. Making lifestyle changes, doing Kegel exercises, keeping a log, and taking medicines can help with this condition. This information is not intended to replace advice given to you by your health care provider. Make sure you discuss any questions you have with your health care provider. Document Revised: 01/17/2021 Document Reviewed: 01/17/2021 [employer] Patient Education 2022 [email or web address]. 12/25/2023 10:21:39 Dietary Guidelines to Help Prevent Kidney Stones Dietary Guidelines to Help Prevent Kidney Stones Kidney stones are deposits of minerals and salts that form inside your kidneys. Your risk of developing kidney stones may be greater depending on your diet, your lifestyle, the medicines you take, and whether you have certain medical conditions. Most people can lower their risks of developing kidney stones by following these dietary guidelines. Your dietitian may give you more specific instructions depending on your overall health and the type of kidney stones you tend to develop. What are tips for following this plan? Reading food labels Choose foods with no salt added or low-salt labels. Limit your salt (sodium) intake to less than 1,500 mg a day. Choose foods with calcium for each meal and snack. Try to eat about 300 mg of calcium at each meal. Foods that contain 200 500 mg of calcium a serving include: ?8 oz (237 mL) of milk, dwdgjid-okoibyxkplxe-qzcyo milk, and calcium-fortifiedfruit juice. Calcium-fortified means that calcium has been added to these drinks. ?8 oz (237 mL) of kefir, yogurt, and soy yogurt. ?4 oz (114 g) of tofu. ?1 oz (28 g) of cheese. ?1 cup (150 g) of dried figs. ?1 cup (91 g) of cooked broccoli. ?One 3 oz (85 g) can of sardines or mackerel. Most people need 1,000 1,500 mg of calcium a day. Talk to your dietitian about how much calcium is recommended for you. Shopping Buy plenty of fresh fruits and vegetables. Most people do not need to avoid fruits and vegetables, even if these foods contain nutrients that may contribute to kidney stones. When shopping for convenience foods, choose: ?Whole pieces of fruit. ?Pre-made salads with dressing on the side. ?Low-fat fruit and yogurt smoothies. Avoid buying frozen meals or prepared deli foods. These can be high in sodium. Look for foods with live cultures, such as yogurt and kefir. Choose high-fiber grains, such as whole-wheat breads, oat bran, and wheat cereals. Cooking Do not add salt to food when cooking. Place a salt shaker on the table and allow each person to add their own salt to taste. Use vegetable protein, such as beans, textured vegetable protein (TVP), or tofu, instead of meat in pasta, casseroles, and soups. Meal planning Eat less salt, if told by your dietitian. To do this: ?Avoid eating processed or pre-made food. ?Avoid eating fast food. Eat less animal protein, including cheese, meat, poultry, or fish, if told by your dietitian. To do this: ?Limit the number of times you have meat, poultry, fish, or cheese each week. Eat a diet free of meat at least 2 days a week. ?Eat only one serving each day of meat, poultry, fish, or seafood. ?When you prepare animal proteins, cut pieces into small portion sizes. For most meat and fish, one serving is about the size of the palm of your hand. Eat at least five servings of fresh fruits and vegetables each day. To do this: ?Keep fruits and vegetables on hand for snacks. ?Eat one piece of fruit or a handful of berries with breakfast. ?Have a salad and fruit at lunch. ?Have two kinds of vegetables at dinner. You may be told to limit foods that are high in a substance called oxalate. These include: ?Spinach (cooked), rhubarb, beets, sweet potatoes, and Sudanese chard. ?Peanuts. ?Potato chips, sammarinese fries, and baked potatoes with skin on. ?Nuts and nut products. ?Chocolate. If you regularly take a diuretic medicine, make sure to eat at least 1 or 2 servings of fruits or vegetables that are high in potassium each day. These include: ?Avocado. ?Banana. ?[place], prune, carrot, or tomato juice. ?Baked potato. ?Cabbage. ?Beans and split peas. Lifestyle Drink enough fluid to keep your urine pale yellow. This is the most important thing you can do. Spread your fluid intake throughout the day. If you drink alcohol: ?Limit how much you have to: ?0 1 drink a day for women who are not . ?0 2 drinks a day for men. ?Know how much alcohol is in your drink. In the [place] one drink equals one 12 oz bottle of beer (355 mL), one 5 oz glass of wine (148 mL), or one 1 oz glass of hard liquor (44 mL). Lose weight if told by your health care provider. Work with your dietitian to find an eating plan and weight loss strategies that work best for you. General information Talk to your health care provider and dietitian about taking daily supplements. Depending on your health and the cause of your kidney stones, you may be told: ?Do not take high-dose supplements of vitamin C (1,000 mg a day or more). ?To take a calcium supplement. ?To take a daily probiotic supplement. ?To take other supplements such as magnesium, fish oil, or vitamin B6. Take klpu-zyb-jbdzqkp and prescription medicines only as told by your health care provider. These include supplements. What foods should I limit? Limit your intake of the following foods, or eat them as told by your dietitian. Vegetables Spinach. Rhubarb. Beets. Canned vegetables. Pickles. Olives. Baked potatoes with skin. Grains Wheat bran. Baked goods. Salted crackers. Cereals high in sugar. Meats and other proteins Nuts. Nut butters. Large portions of meat, poultry, or fish. Salted, precooked, or cured meats, such as sausages, meat loaves, and hot dogs. Dairy Cheeses. Beverages Regular soft drinks. Regular vegetable juice. Seasonings and condiments Seasoning blends with salt. Salad dressings. Soy sauce. Ketchup. Barbecue sauce. Other foods Canned soups. Canned pasta sauce. Casseroles. Pizza. Lasagna. Frozen meals. Potato chips. [place] fries. The items listed above may not be a complete list of foods and beverages you should limit. Contact a dietitian for more information. What foods should I avoid? Talk to your dietitian about specific foods you should avoid based on the type of kidney stones you have and your overall health. Fruits Grapefruit. The item listed above may not be a complete list of foods and beverages you should avoid. Contact a dietitian for more information. Summary Kidney stones are deposits of minerals and salts that form inside your kidneys. You can lower your risk of kidney stones by making changes to your diet. The most important thing you can do is drink enough fluid. Drink enough fluid to keep your urine pale yellow. Talk to your dietitian about how much calcium you should have each day, and eat less salt and animal protein as told by your dietitian. This information is not intended to replace advice given to you by your health care provider. Make sure you discuss any questions you have with your health care provider. Document Revised: 08/10/2022 Document Reviewed: 08/10/2022 [employer] Patient Education 2022 [email or web address]. Follow Up Care 10/24/2023 09:02:56 With:Gaurav MADRID, Aubrie Cho, URL, [facility] Address: When: Unknown Comments:6 mos kub/ferny [facility] 12-25-2023 Note Urology Office/Clini c Note Chief Complaint F/u to Bulkamid procedure HPI Staff 58 year old female patient presents today for a month follow up PO cysto, bulkamid with PVR. Previous DX;intrinsic sphincter deficiency, kidney stones, OAB, urethral stricture,asymptomatic microscopic hematuria, incompletely emptying bladder, dysuria. S/P cysto 10/23/23 and bulkamid. PVR today is 10ml. *estradiol 0.1 mg cream Dysuria: sometimes she has some burning Incomplete bladder emptying: pt feels she is emptying Hematuria: no Frequency: every 3-4 hours Urgency: no Nocturia: does not get up Stream: good steady no straining Leaking: rare Post void dripping: no Wearing pads/ Depends: no Urge incontinence: no Stress incontinence: no Incontinence without Sensory Awareness: no Abdominal pain: no Flank pain: more on the left from time to time Sexual complaints: no History of Present Illness I have reviewed and verified the staff HPI to be accurate for this encounter. Portions of this record may have been created with voice recognition artificial intelligence software, specifically [employer], [employer] and or [employer]. Substitutions may have occurred due to the inherent limitations of voice recognition and artificial intelligence software. Review of Systems PHQ Score Initial Depression Screen Score: 0 SCORE Physical Exam Vitals & Measurements T: 37 ?C(Temporal Artery) HR: 48(Peripheral) RR: 16 BP: 127/76 HT: 63 in HT: 161 cm WT: 76 kg WT: 167.2 lb BMI: 29.32 General: Well developed, well nourished, in no acute distress. Assessment/Plan KML pt BBS 8 (18) 1. Intrinsic sphincter deficiency (ISD) (N36.42: Intrinsic sphincter deficiency (ISD)) s/p Bulkamid 10/23/23 Patient is very happy with her results. She is completely dry, not using any pad throughout the day, no leakage. She feels that she is emptying well, PVR today is 10 mL. Ordered: [id number] Measure Post Void residual urine and/or bladder capacity by US- non-imaging Urine Culture Urnls Dip Stick Auto w/o Microscopy POC 33211 2. Kidney stone (N20.0: Calculus of kidney) S/p [...] scattered nonobstructing calculi of right kidney, left negative. S/p R laser litho, stone basket extraction & Rt stent placement 10/25/22. Stent removal 10/30/22. Stone analysis - 70% ca ox mono, 20% ca ox di, 10% ca phos hydoxyl KUB 06/04/23 - no suspicious renal calcification. FERNY 06/06/23 [facility] - Multiple echogenic foci measuring up to 6 mm nonobstructing nephrolithiasis. No R renal stones. No hydro. -Pt was having left flank pain previously so a STAT FERNY was ordered. No hydro or obstructing stone was found. Offered to have a CT or f/u in 3 mos w/ metabolic workup. Pt wished to f/u in 3 mos. [facility] ER 07/29/23 due to low back/bilateral flank pain radiating into R lower abdomen. Had decreased urinary output and sensation of CHER. Given IV Toradol. CT AP wo con 07/29/23 [facility] - Multiple bilateral nonobstructing R renal calculi measuring up to 4 mm. Punctate nonobstructing L renal calculus. 07/29/23 - BUN 11. Cr 0.86. eGFR >60. [1] Patient inquires about kidney stone monitoring at this time. She does admit to some intermittent bilateral flank pain, worse on the right side. She does use Levsin which does give her some symptomatic relief. -KUB/FERNY ordered today, will call patient with results. -Patient prefers to follow-up in 6 months with additional KUB/R US given her history. Ordered: [id number] Measure Post Void residual urine and/or bladder capacity by US- non-imaging Urine Culture Urnls Dip Stick Auto w/o Microscopy POC 11739 US Renal XR Abdomen 1 View 3. OAB (overactive bladder) (N32.81: Overactive bladder) PVR (cc): 06/05/23 - 117 09/05/23 - 0 12/25/23 - 10 Myrbetriq is cost prohibitive, interested in Botox in the future but wanted to address FRANCISCA first. OAB symptoms much improved since addressing FRANCISCA, frequency is improved to every 3-4 hours, denies urgency, denies nocturia. Patient does not wish to proceed with any further treatment regarding OAB symptoms. -6 mos f/u Ordered: [id number] Measure Post Void residual urine and/or bladder capacity by US- non-imaging Urine Culture Urnls Dip Stick Auto w/o Microscopy POC 18522 4. Other urethral stricture, female (N35.82: Other urethral stricture, female) Cysto by (more content not included)... [facility] Comment on above: Result Comment: Elec tronically Signed By: DOROTHY Santillan APRN, [place] X\.brown\Date and Time Signed: 12/25/23 10:22 EDT 12-25-2023 Note Patient Education Nephrology Dietary Guidelines to Help Prevent Kidney Stones Kidney stones are deposits of minerals and salts that form inside your kidneys. Your risk of developing kidney stones may be greater depending on your diet, your lifestyle, the medicines you take, and whether you have certain medical conditions. Most people can lower their risks of developing kidney stones by following these dietary guidelines. Your dietitian may give you more specific instructions depending on your overall health and the type of kidney stones you tend to develop. What are tips for following this plan? Reading food labels ? Choose foods with no salt added or low-salt labels. Limit your salt (sodium) intake to less than 1,500 mg a day. ? Choose foods with calcium for each meal and snack. Try to eat about 300 mg of calcium at each meal. Foods that contain 200?500 mg of calcium a serving include: ? 8 oz (237 mL) of milk, oixemlf-etyjcafhtoim-qfdkq milk, and calcium-fortifiedfruit juice. Calcium-fortified means that calcium has been added to these drinks. ? 8 oz (237 mL) of kefir, yogurt, and soy yogurt. ? 4 oz (114 g) of tofu. ? 1 oz (28 g) of cheese. ? 1 cup (150 g) of dried figs. ? 1 cup (91 g) of cooked broccoli. ? One 3 oz (85 g) can of sardines or mackerel. Most people need 1,000?1,500 mg of calcium a day. Talk to your dietitian about how much calcium is recommended for you. Shopping ? Buy plenty of fresh fruits and vegetables. Most people do not need to avoid fruits and vegetables, even if these foods contain nutrients that may contribute to kidney stones. ? When shopping for convenience foods, choose: ? Whole pieces of fruit. ? Pre-made salads with dressing on the side. ? Low-fat fruit and yogurt smoothies. ? Avoid buying frozen meals or prepared deli foods. These can be high in sodium. ? Look for foods with live cultures, such as yogurt and kefir. ? Choose high-fiber grains, such as whole-wheat breads, oat bran, and wheat cereals. Cooking ? Do not add salt to food when cooking. Place a salt shaker on the table and allow each person to add their own salt to taste. ? Use vegetable protein, such as beans, textured vegetable protein (TVP), or tofu, instead of meat in pasta, casseroles, and soups. Meal planning ? Eat less salt, if told by your dietitian. To do this: ? Avoid eating processed or pre-made food. ? Avoid eating fast food. ? [...] or seafood. ? When you prepare animal proteins, cut pieces into small portion sizes. For most meat and fish, one serving is about the size of the palm of your hand. ? Eat at least five servings of fresh fruits and vegetables each day. To do this: ? Keep fruits and vegetables on hand for snacks. ? Eat one piece of fruit or a handful of berries with breakfast. ? Have a salad and fruit at lunch. ? Have two kinds of vegetables at dinner. ? You may be told to limit foods that are high in a substance called oxalate. These include: ? Spinach (cooked), rhubarb, beets, sweet potatoes, and Sudanese chard. ? Peanuts. ? Potato chips, sammarinese fries, and baked potatoes with skin on. ? Nuts and nut products. ? Chocolate. ? If you regularly take a diuretic medicine, make sure to eat at least 1 or 2 servings of fruits or vegetables that are high in potassium each day. These include: ? Avocado. ? Banana. ? [place], prune, carrot, or tomato juice. ? Baked potato. ? Cabbage. ? Beans and split peas. Lifestyle ? Drink enough fluid to keep your urine pale yellow. This is the most important thing you can do. Spread your fluid intake throughout the day. ? If you drink alcohol: ? Limit how much you have to: ? 0?1 drink a day for women who are not . ? 0?2 drinks a day for men. ? Know how much alcohol is in your drink. In the [place] one drink equals one 12 oz bottle of beer (355 mL), one 5 oz glass of wine (148 mL), or one 1? oz glass of hard liquor (44 mL). ? Lose weight if told by your health care provider. Work with your dietitian to find an eating plan and weight loss strategies that work best for you. General information ? Talk to your health care provider and dietitian about taking daily supplements. Depending on your health and the cause of your kidney stones, you may be told: ? Do not take high-dose supplements of vitamin C (1,000 mg a day or more). ? To take a calcium supplement. ? To take a daily probiotic supplement. ? To take other supplements such as magnesium, fish oil, or vitamin B6. ? Take jvxr-jwv-zrqqvau and prescription medicines only as told by your health care provider. These include suppleme (more content not included)... [facility] 10-23-2023 Evaluation + Plan note Extrac mike from: Title:ANES Post-operative Note---General Author: Pedrito Braun MD Date:10/23/23 Plan Transfer/Discharge: Transfer/Discharge Discharge when meets criteria ( To home ). Extracted from: Title:EU- Bulkamid Author:Aubrie Nolasco MD Date: 10/23/23 Impression and Plan Diagnosis Intrinsic sphincter deficiency (ISD) (NBP03-FM N36.42, Discharge, Medical). Diagnosis Intrinsic sphincter deficiency (ISD) (FXM27-EQ N36.42, Discharge, Medical). Extracted from: Title:ANES Pre-operative Note 2022 Author:Pedrito Boles Date:10/23/23 Plan [place] [employer] Anesthesiologists (ASA) physical status classification: Class II. Anesthetic Preoperative Plan: Anesthesia Monitored anethesia care. [facility]06-11-2024 Hospital Discharge instructions Patient Education 10/23/2023 11:43:04 Post Op Patient Instructions - FT (Custom) (CUSTOM) 10/23/2023 11:08:28 Lue - Bulkamid Post-Op Instructions (CUSTOM) [facility] [place], [place] Post-Operative Instructions for Bulkamid Congratulations on starting your journey towards symptom relief! Below you will find basic post-operative instructions. Activity and Lifestyle Instructions After your procedure, you may be allowed to return to normal non-strenuous activity. If you had sedation, you may be groggy, and your physician may encourage you to rest. You may resume intercourse. If you are on your menstrual cycle, you may use tampons. You can resume your normal exercise program 24 hours following the procedure if blood has cleared from your urine. If you engage in highly strenuous exercise such as CrossFit, you may want to wait 48-72 hours. You may feel discomfort or irritation to the bladder and urethra following the procedure. If this occurs, the discomfort should subside within 24 hours. Your physician may recommend a warm bath and/or an ugcc-gcr-wnttxbi pain medication to reduce discomfort. If you had sedation your physician may recommend the following: oDo not drive for 24 hours or longer if you feel groggy. oDo not drink alcoholic beverages for 24 hours. Bladder It is normal to have blood in your urine for 24 hours after the procedure. Drink plenty of water to stay hydrated. Do not moore or strain to urinate; relax your bladder and give it time to empty. Slow urinary stream for the first several days is not unusual. If you are unable to urinate, contact your physician. Contact your physician s office if you experience trouble urinating, heavy bleeding, fever greater than 100.8 degrees, chills, confusion, disorientation, severe abdominal pain, or any other unusual reaction. Once again, congratulations on beginning your journey towards symptom relief! In the following months, if you feel your symptom relief decrease inform your physician to explore further treatment options. This document is a sample for illustrative purposes only. It does not provide a complete list of all instructions patients should follow following their operation. Please consult your physician for acomplete list of instructions. 2020 [employer]. All rights reserved. This material contains registered trademarks, trade names, and brand names of [employer]. [id number] 04/2021 [employer] , [place] [address] [email or web address] Follow Up Care 09/19/2023 10:55:44 With:Aubrie Nolasco Address: [facility] [address] [address] [phone] Business (1) When: Unknown Comments:Office will call to schedule your follow up in 1 month with [facility]05-22-2024 Note [id number] [facility] 09-05-2023 Evaluation + Plan note Diagnostic Tests Pending * Urine Culture 09/05/23 [facility]04-24-2024 Hospital Discharge instructions Patient Education 09/05/2023 11:57:51 Injection Treatments [...] full. Monitor the amount and color of yoururine. Check to make sure that there are no twists, bends, or kinks in the catheter tube. Visit your health care provider to have the catheter removed. Medicines Take oebm-tuw-xihxwtt and prescription medicines only as told by [...] provider. Document Revised: 12/16/2020 Document Reviewed: 12/03/2020 [employer] Patient Education 2022 [email or web address]. 09/05/2023 11:57:48 Injection Treatments for Urinary Incontinence [...] including vitamins, herbs, eye drops, creams, and crbu-xns-cjwzppg medicines. Any problems you or family members [...] provider tells you to take them. Taking gztw-qac-spkmqqp medicines, vitamins, herbs, and supplements. General instructions [...] the room. These images will be used tohelp guide the procedure. A long needle will [...] blood oxygen level will be monitored until youleave the hospital or clinic. If you have [...] you pass urine. The muscle that normally keepsurine from leaking may be weak. Urinary incontinence [...] provider. Document Revised: 12/03/2020 Document Reviewed: 12/03/2020 [employer] Patient Education 2022 [email or web address]. Follow Up Care 06/13/2023 12:45:40 With:Gaurav MADRID, Aubrie Cho, AMBER, URO Address: [address] [place] [address] [phone] When: Unknown Comments:amara Henderson [facility] [place] [id number] Evaluation + Plan note Diagnostic Tests Pending * Urine Culture 06/05/23 [facility]01-23-2024 Hospital Discharge instructions Patient Education 06/05/2023 09:29:56 Flank Pain, Adult, Ixsu-qe-Bvsh Flank Pain, Adult Flank pain is pain [...] Rest as told by your doctor. Take jxjj-dyl-igktwqp and prescription medicines only as told by [...] away. Call your local emergency services (911 inthe [place] Do not wait to see if [...] provider. Document Revised: 07/11/2021 Document Reviewed: 07/11/2021 [employer] Patient Education 2022 [email or web address]. Follow Up Care 05/30/2023 14:24:53 With:TRE KENDALL, KAILASH Harry, URL Address: [address] [place] [address] When: Unknown [facility] 06-19-2023 Evaluation + Plan noteExtracted from: Title:- Clinic HOPD Note Author:Gaurav MADRID, Aubrie Fernandez. Date:10/30/22 Impression and Plan Assessment and Plan: Diagnosis: Intrinsic sphincter deficiency (ISD) (PNW54-FD N36.42, Discharge, Medical), Mixed incontinence (YIY82-OU N39.46, Working, Medical), Kidney stone (OIE64-JG N20.0, Discharge, Medical). 57 year old female [...] dietary modifications -Follow-up stone analysis results from [facility] -Patient has Litholink kit at home. [...] and procedures in caring for the patient. [facility]06-19-2023 Hospital Discharge instructions Patient Education 10/30/2022 10:19:28 [...] Up Care 10/27/2022 11:14:28 With:Aubrie Nolasco Address: [address] [place] [address]- [phone] Business (1) [address] [address] [phone] Business (1) When: Unknown Comments:Office will schedule Bulkamid and follow up renal US in 6 wks [facility]05-31-2023 Hospital Discharge instructions Patient Education 10/11/2022 [...] (electrical nerve stimulation). ?For women, using a nurses medical assistants phlebotomists to prevent urine leaks. This is a [...] right after experiencing incontinence. General instructions Take qgjp-ctt-mvouuys and prescription medicines only as told by [...] important. Where to find more information National [place] of Diabetes and Digestive and Kidney Diseases: www.niddk.nih.gov [place] [employer]: www.urologyhealth.org Contact a health care [...] provider. Document Revised: 12/03/2020 Document Reviewed: 12/03/2020 [employer] Patient Education 2022 [email or web address]. Follow Up Care 06/26/2022 12:58:55 With:Gaurav MADRID, Aubrie Cho, URL, URO Address: [address], [facility] [place] [phone] When: Unknown Comments:sched rt uretero w/ possible stent [facility] 05-31-2023 NotePROCEDURE: XR KUB 1 VIEW [...] Electronically authenticated by: CLARISSA VILLALTA Date: 2022-10-11 07:26[facility]03-22-2023 NotePROCEDURE: XR ANKLE LT MIN 3 [...] authenticated by: BENI ORTIZ Date: 2022-08-02 11:20[id number] NotePROCEDURE: XR ANKLE LT MIN 3 V [...] authenticated by: JUDSON ENGLISH Date: 2022-07-27 16:35[id number] Hospital Discharge instructions Patient Education 06/16/2022 12:32:50 [...] include: ?Spinach. ?Rhubarb. ?Beets. ?Potato chips and sammarinese fries. ?Nuts. If you regularly take a diuretic medicine, make sure to eat at least 1 2 fruits or vegetables high in potassium each day. These include: ?Avocado. ?Banana. ?[place], prune, carrot, or tomato juice. ?Baked potato. [...] Casseroles. Pizza. Lasagna. Frozen meals. Potato chips. Comoran fries. Summary You can reduce your risk [...] 08/25/2011 Document Revised: 08/20/2019 Document Reviewed: 04/10/2017 [employer] Patient Education 2019 [email or web address]. Follow Up Care 06/15/2022 09:49:16 With:Aubrie Nolasco MD, URL, URO Address: When: Unknown [facility] [place] 11-11-2022 Hospital Discharge instructions Patient Education 03/24/2022 14:51:05 Kidney Stones, Ooyw-ow-Uttl Kidney Stones Kidney stones are rock-like masses [...] Follow these instructions at home: Medicines Take lyjl-ipn-fiimtcd and prescription medicines only as told by [...] 10/16/2008 Document Revised: 09/16/2019 Document Reviewed: 09/16/2019 [employer] Patient Education 2019 [email or web address]. Follow Up Care 03/21/2022 12:53:12 With:Gaurav MADRID, AMBER Greco, URO Address: When: Unknown [facility] 03-29-2022 Hospital Discharge instructions Patient Education 08/09/2021 [...] fried and sweet foods. General instructions Take kdlp-prx-zhsregr and prescription medicines only as told by [...] 02/24/2010 Document Revised: 08/21/2019 Document Reviewed: 05/16/2018 [employer] Patient Education 2020 [email or web address]. Follow Up Care 05/10/2021 12:57:15 With:Gino Saleh MD, Tracy Sexton, URO Address: When:3 months Comments:increased VESIcare/renal us and pvr [facility] evaluation + Plan note Future Appointments Appointment Date:11/08/2021 09:45:00 AM Scheduled Provider:Tracy Christian Jr., MD Location:[facility] Appointment Type:URO Office Visit [facility] evaluation + Plan note Future Appointments Appointment Date:10/23/2023 10:45:00 AM Scheduled Provider: Location:[facility] Future Appointments Appointment Date:10/23/2023 09:00:00 AM Scheduled Provider: Location:[facility] Future Appointments Appointment Date:06/25/2024 10:00:00 AM Scheduled Provider:Aubrie Nolasco MD Location:[facility] Appointment Type:URO Office Visit [facility] evaluation + Plan note Future Appointments Appointment Date:06/25/2024 10:00:00 AM Scheduled Provider:Aubrie Nolasco MD Location:[facility] Appointment Type:URO Office Visit Diagnostic Tests Pending * Urine Culture 12/25/23 [facility] Evaluation note* Diagnosis Lumbar radiculopathy- Primary Thoracic or lumbosacral neuritis or radiculitis, unspecified Lumbar pain Lumbago [facility] Diagnosis Pain in joint, multiple sites- Primary Joint stiffness Stiffness of joint, not elsewhere classified, unspecified site Pain in joint, multiple sites documented in this encounter [facility] course Narrative No data available for this section [facility] Page Hospital Discharge instructions No data available for this section [facility] No data available for this section [facility] [place] Reason for referral (narrative)* Diagnostic Procedure Only (Routine) - Closed Specialty Diagnoses / Procedures Referred By Contac t Referred To Contact XR IMAGING Diagnoses Pain in joint, multiple sites Procedures XR FOOT GENERAL 3V AP/LAT/OBL BILATERAL RADEX FOOT COMPLETE MINIMUM 3 VIEWS Olivia Corbett MD [address] [place] [address] Xr [place] [facility] Referral ID Status Reason Start Date Expiration Date V isits Requested Visits Authorized [id number] Closed Auto-Generate d Referral 06/06/2024 07/06/2025 1 1 * Diagnostic Procedure Only (Routine) - Closed Specialty Diagnoses / Procedures Referred By Contac t Referred To Contact XR IMAGING Diagnoses Pain in joint, multiple sites Procedures XR HAND GENERAL 3V PA/LAT/OBL BILATERAL RADEX HAND MINIMUM 3 VIEWS Olivia Corbett MD [address] [place] [address] [place] [address] Referral ID Status Reason Start Date Expiration Date V isits Requested Visits Authorized [id number] Closed Auto-Generate d Referral 06/06/2024 07/06/2025 1 1 [facility] Summary Purpose Family History No Family History Records Found No data available for this section No data available for this section No data available for this section No data available for this section No data available for this section No data available for this section No Family History Records FoundNo Family History Records FoundNo Family History Records FoundNo Family History Records Found No data available for this section No data available for this section No data available for this section No Family History Records FoundNo Family History Records FoundNo Family History Records FoundNo Family History Records FoundNo Family History Records FoundNo Family History Records Found Advance Directives No Advanced Directives Records FoundNo Advanced Directives Records FoundNo Advanced Directives Records FoundNo Advanced Directives Records FoundNo Advanced Directives Records FoundNo Advanced Directives Records FoundNo Advanced Directives Records FoundNo Advanced Directives Records FoundNo Advanced Directives Records FoundNo Advanced Directives Records FoundNo Advanced Directives Records Found Additional Source Comments Patient Care team informatio n (unrecognized section and content) Med Surg Rn Relationship Specialty Start Date End Date Phillip Bruner MD [address] [place] [address] PCP - General Family Medicine 10/18/23 Med Surg Rn Relationship Specialty Start Date End Date Phillip Bruner MD [address] [place] [address] PCP - General Family Medicine 10/18/23 Med Surg Rn Relationship Specialty Start Date End Date Phillip Bruner MD [address] [place] [address] PCP - General 08/22/00 INFORMATION SOURCE (unrecogn ized section and content) DATE CREATED AUTHOR 10/21/2022 [facility] DATE CREATED AUTHOR AUTHOR'S ORGANIZ ATION 10/20/2023 [facility] DATE CREATED AUTHOR AUTHOR'S ORGANIZ ATION 12/31/2023 [facility] DATE CREATED AUTHOR AUTHOR'S ORGANIZ ATION 01/02/2024 [place] [facility] DATE CREATED AUTHOR AUTHOR'S ORGANIZ ATION 05/10/2024 [facility] DATE CREATED AUTHOR AUTHOR'S ORGANIZ ATION 06/22/2024 [facility] DATE CREATED AUTHOR AUTHOR'S ORGANIZ ATION 07/04/2024 [facility] Reason for Visit (unrecogniz ed section and content) Reason Comments Pain Source Comments (unrecognize d section and content) In the event this informatio n is protected by the Federal Confidentiality of Alcohol and Drug Abuse Patient Records regulations: The Federal rules restrict any use of the information to criminally investigate or prosecute any alcohol or drug abuse patient.[facility] FOR RECORDS PERTAINING TO PATIENTS WHO ARE [...] BE BASED ON THE PRIMARY CLINICAL RECORDS. [employer] [facility]. provides no warranty or guarantee of the accuracy or completeness of information in this document.
[2024-08-16 10:03] LABS: Basophils Percent Auto 0.6 % (0.2-2.0); Eosinophils Absolute Auto 0.1 10^3/uL (0.0-0.7); Eosinophils Percent Auto 1.7 % (0.9-7.0); Hematocrit 43.6 % (36.0-48.0); Hemoglobin 14.8 g/dL (12.0-16.0); Immature Granulocytes Abs Auto 0.02 10^3/uL (0.00-0.03); Immature Granulocytes Pct Auto 0.3 % (0.0-0.5); Lymphocytes Percent Auto 27.5 % (20.5-60.0); Mean Corpuscular HGB Conc 33.9 g/dL (29.9-35.2); Mean Corpuscular Hemoglobin 31.2 pg (26.7-34.0); Mean Platelet Volume 10.1 fL (9.5-13.5); Monocytes Absolute Auto 0.8 10^3/uL (0.3-0.8); Neutrophils Absolute Auto 4.2 10^3/uL (1.4-6.5); Neutrophils Percent Auto 58.9 % (43.0-75.0); Platelet Count 235 10^3/uL (150-450); Red Blood Count 4.74 10^6/uL (4.20-5.40); Red Cell Distribution Width 12.1 % (11.0-15.0); White Blood Count 7.2 10^3/uL (4.0-11.0)
[2024-08-16 10:04] LABS: Estimated Average Glucose 114 mg/dL; Glycohemoglobin A1C 5.6 % (4.5-6.2)
[2024-08-16 12:04] LABS: Alanine Aminotransferase 33 U/L (14-59); Albumin Globulin Ratio 1.2; Albumin Level 3.8 g/dL (3.4-5.0); Alkaline Phosphatase 101 U/L (46-116); Anion Gap 9.8; Aspartate Amino Transferase 17 U/L (15-37); Bilirubin Total 0.3 mg/dL (0.2-1.0); Calcium 9.3 mg/dL (8.5-10.1); Carbon Dioxide 27.1 mmol/L (21.0-32.0); Chloride 105 mmol/L (98-107); Chol HDL Ratio 3.8; Cholesterol 226 mg/dL (<=200); Estimated GFR (African America >60 (>=60 mL/min/1.73m^2); Estimated GFR (Non-African Ame 56 (>=60 mL/min/1.73m^2); Free T3 2.67 pg/mL (2.18-3.98); Globulin 3.3 g/dL; Glucose 103 mg/dL (74-106); HDL Cholesterol 60 mg/dL (40-60); Potassium 3.9 mmol/L (3.5-5.1); Sodium 138 mmol/L (136-145); Thyroid Stimulating Hormone 2.116 uIU/mL (0.358-3.740); Total Protein 7.1 g/dL (6.4-8.2); Triglycerides 84 mg/dL (<=150); VLDL CHOLESTEROL 16.8 mg/dL
== END 2024-08-16 09:44 | disposition home or self-care (01) ==
LOC: LAB 09:43
PROVIDERS: PCP Family Medicine; Visit Provider Family Medicine
DX: Z00.00 Encounter for general adult medical examination without abnormal findings (principal)
CPT/HCPCS: 36415; 80053; 80061; 82306; 83036; 84436; 84443; 84481; 85025

== ENCOUNTER 2024-11-24 10:38 | Outpatient (OUT) | payer BC, SELFPAY ==
--- NOTE | 2024-11-24 11:10 | XR_ITS ---
The [address] [address] Patient Name: CARMELO CHUNG MRN: [id number] date: 1965 Sex: F Assigned Patient Location: [facility] Current Patient Location: [facility] Accession/Order Number: [id number] Exam Date: 11/24/2024 11:57 Report Date: 11/24/2024 12:01 At the request of: PHILLIP BRUNER MD Procedure: XR abdomen 1V SINGLE VIEW ABDOMEN CLINICAL DATA: Chronic kidney stones and left mid back pain. COMPARISON: CT 07/29/2023 Supine views of the abdomen and pelvis were obtained. There is small and large bowel air, without disproportionate distention. There is stool within the colon. Both kidneys are partially obscured. Capsule-shaped densities at the right abdomen may be medicinal. There is also a tiny potential 3 mm calcification that could be a renal stone. No convincing radiopaque calculi are seen on the left or along the course of the ureter. There is a left pelvic phlebolith. No soft tissue masses are seen. There is levoscoliotic curvature. Patient is status post prior cholecystectomy. XR/XR abdomen 1V IMPRESSION: SLIGHT LIMITED STUDY DUE TO BOWEL GAS AND STOOL. POTENTIAL TINY RIGHT RENAL STONE. Impression dictated by: Claudine Heard M.D. 11/24/2024 12:01 PM Dictation Location: [place] [address] Electronically authenticated by: [id number] Y Date: 11/24/2024 12:01
== END 2024-11-24 10:39 | disposition home or self-care (01) ==
LOC: RAD 10:41
PROVIDERS: PCP Family Medicine; Visit Provider Family Medicine
DX: N32.89 Other specified disorders of bladder (principal)
CPT/HCPCS: 74018

== ENCOUNTER 2024-12-23 09:27 | Outpatient (OUT) | payer BC, SELFPAY ==
--- NOTE | 2024-12-23 | MM_ITS ---
Patient Name: CARMELO CHUNG MR#: [id number] : 1965 Exam Date: 12/23/2024 Ordering Doctor: DR ADI NOLASCO . RADIOLOGY REPORT PROCEDURE: MM TOMOSYNTHESIS SCREENING BI COMPARISON: MG MAMM SCREEN JEN W CAD, 04/22/2019. MG MAMM SCREEN JEN W CAD, 04/11/2018. MG MAMM SCREEN JEN W CAD, 02/23/2017. MG MAMM JEN SCRN W CAD DIG, 12/25/2013. INDICATIONS: SCREENING FOR MALIGNANCY OF BREASTS Calculator Name [facility] Breast Cancer Risk Assessment Tool 5 Year Breast Cancer Risk 2.30% Lifetime Breast Cancer Risk 10.60% Personal Breast Cancer No Personal Ovarian Cancer No Treatments None Family Cancers Grandmother-maternal with colon cancer at age 80; Mother with colon cancer at age 73. LOCATION: [facility] BREAST COMPOSITION: The breasts are heterogeneously dense, which may obscure small masses. FINDINGS: DIAGNOSTIC CATEGORY 1--NEGATIVE. RIGHT BREAST: No significant suspicious finding. LEFT BREAST: No significant suspicious finding. RECOMMENDATIONS: ROUTINE MAMMOGRAM AND CLINICAL EVALUATION IN 12 MONTHS. PLEASE NOTE: A NORMAL MAMMOGRAM DOES NOT EXCLUDE THE POSSIBILITY OF BREAST CANCER. A CLINICALLY SUSPICIOUS PALPABLE LUMP SHOULD BE BIOPSIED. Dictated by: Graeme Rutherford DO on 12/23/2024 at 16:09 Approved by: Graeme Rutherford DO on 12/23/2024 at 16:10
== END 2024-12-23 09:28 | disposition home or self-care (01) ==
LOC: MAMMO 09:27
PROVIDERS: PCP Family Medicine; Visit Provider Obstetrics & Gynecology
DX: Z12.31 Encounter for screening mammogram for malignant neoplasm of breast (principal); Z80.0 Family history of malignant neoplasm of digestive organs
CPT/HCPCS: 77063; 77067

== ENCOUNTER 2024-12-29 06:44 | Outpatient (OUT) | payer BC, SELFPAY ==
--- OUTSIDE RECORDS SUMMARY | 2023-09-03 06:10 | XMS_ITS ---
Author Organization [facility] Address [address] [place] [address] Care Team Providers Care Core Drier Name Role Phone Bala Unger Primary Care Provider Galindo Macias [facility] [phone] Results Component Value Reference Range Notes SCC- ANKLE 3 VIEW LEFT 72491 Reviewed date:09/04/2023 11:53:03 AM Interpretation: Performing Lab: Notes/Report: SCC- FOOT 2 VIEW LEFT [id number] Reviewed date:09/04/2023 11:53:26 AM Interpretation: Performing Lab: Notes/Report: REASON FOR VISIT LEFT ANKLE PAIN Encounters Encounter Location Date Provider Diagnosis [facility] Office [address] [place] [id number] 09/03/2023 Galindo Patel Left ankle pain, unspecified chronicity M25.572 and Left foot pain M79.672 Assessments Encounter Date Diagnosis (ICD Code) Assessment Notes Treatment Notes Treatment Clinical Notes Section Notes 09/03/2023 Left ankle pain, unspecified chronicity (ICD-10 - M25.572) 09/03/2023 Left foot pain (ICD-10 - M79.672) Plan Of Treatment No Information Progress Notes * LOLY CHUNGCELENAADOB:1965 (59 yo F)Acc No.[id number]:09/03/2023 Patient: CARMELO SIMPSON Provider: Lucas Patel MD :1965 A ge:58 Y S ex:Female Date:09/03/2023 Address:[address] [place], [place] [id number] Pcp:Bala Unger Subjective: * Chief Complaints: * 1 . LEFT ANKLE PAIN. * Medical History: Objective: * Vitals: Assessment: * Assessment: 1. L eft ankle pain, unspecified chronicity - M25.572 (Primary) 2 . L eft foot pain - M79.672 Plan: * Treatment: 2. L eft foot pain I maging: SCC- FOOT 2 VIEW LEFT 98722 (Performed Date - 09/04/2023) * Procedure Codes: 7 3610 X-ray Ankle, 3 view, 53689 X-ray Foot, 2 view Forms: * Images: * Electronic signature of Michael Patel MD on 12/29/2024 at 06:46 AM EDT Sign off status: Pending * Provider: Lucas Patel MD Date: 0 09/03/2023 Generated for Milla benoit/Hari/Suyapa on: 0 12/29/2024 06:46 AM EDT
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
--- OUTSIDE RECORDS SUMMARY | 2024-11-24 05:30 | XMS_ITS ---
Author Organization The [facility] in [place] Address [address] [place] [address] Care Team Providers Care Juvenile Justice Specialist Name Role Phone Adam Unger Primary Care Provider Allergies No Known Allergies Results Component Value Reference Range Notes UA DIP NONAUTO WO MICRO (810 02) - IN OFFICE Reviewed date:11/24/2024 12:49:49 PM Interpretation: Performing Lab: Notes/Report: COLOR yellow CLARITY clear GLUCOSE neg BILIRUBIN neg KETONE neg SPECIFIC GRAVITY 1.010 BLOOD trace PH 7.0 PROTEIN neg UROBILINOGEN neg NITRITE neg LEUKOCYTE ESTERASE trace REASON FOR VISIT Presents to office for rash around waist. Itching, painful x4 days, having bladder spasms. Had leftover Cefdinir at home and started taking that 9 days ago Medications Medication SIG (Take, Route, Frequency, Duration) Notes Start Date End Date Status Zovirax 5 % 1 application Cafeteria Food Server ally Five times a day for 4 days 11/24/2024 Active valACYclovir HCl 1 GM 1 tablet Orally ti d for 10 days 11/24/2024 Active Vitamin D 50 MCG (1999 UT) 1 capsule Ora lly Once a day Active Tylenol Extra Strength 500 MG 1 tablet as needed Orally every 6 hrs PRN Active Pristiq 100 MG 1 tablet Orally Once a day 08/11/2024 Active Ondansetron 4 MG 1 tablet on the tong ue and allow to dissolve Orally Once a day for 30 days PRN 02/01/2024 Active Lopressor 50 MG 1 tab Orally Twice a day for 90 days Active hydrOXYzine HCl 25 MG 1 tablet as needed Orally Q 4 hours for 10 days Active Cefdinir 300 MG 2 capsule Orally onc e a day for 10 days 11/24/2024 Active CeleBREX 200 MG 1 capsule with food Orally Once a day for 90 days PRN 11/02/2022 Active Cefdinir 300 MG 2 capsule Orally onc e a day for 10 days 09/01/2024 Active Ammonium Lactate 12 % small amount Exter kaela Twice a day for 30 days 09/28/2022 Active Amitriptyline HCl 50 MG TAKE 1 TABLET BY MOUTH EVERY NIGHT AT BEDTIME for 30 Active Abilify 5 MG 1 tablet Orally Once a day Active Social History Tobacco Use: Social History Observation Description Date Details (start date - stop date) Never Smoker NA - NA Tobacco Use/Smoking Question Answer Notes Patient is a nonsmoker AUDIT-C (Standard) Question Answer Notes Did you have a drink containing alcohol in the p ast year? No Points 0 Interpretation Negative Section Notes: non smoker Problems Problem Type SNOMED Code ICD Code Onset Dates Problem Status W/U Status Risk Notes Problem Spasm of bladder (819052384) Bladder spasms (N32.89) Active confirmed Problem hypercholesterolemia (disorder) (31861927) Hypercholesteremia (E78.00) Active confirmed Vital Signs Blood pressure systolic 160 mm Hg 11/25/19 25 Blood pressure diastolic 98 mm Hg 025 Height 64 in 11/24/2024 Weight 166.8 lbs 11/24/2024 BMI 28.63 kg/m2 11/24/2024 Encounters Encounter Location Date Provider Diagnosis [address] [address] 11/24/2024 Adam Hoy Bladder spasms N32.8 9 ; Shingles B02.9 and Hypercholesteremia E78.00 Assessments Encounter Date Diagnosis (ICD Code) Assessment Notes Treatment Notes Treatment Clinical Notes Section Notes 11/24/2024 Bladder spasms (ICD- 10 - N32.89) 11/24/2024 Shingles (ICD-10 - B02.9) 11/24/2024 Hypercholesteremia (ICD-10 - E78.00) Plan Of Treatment Medication Medication Name Sig Start Date Stop Date Notes Zovirax 5 % 1 application Cafeteria Food Server ally Five times a day for 4 days 11/24/2024 valACYclovir HCl 1 GM 1 tablet Orally tid for 10 days 11/11 Cefdinir 300 MG 2 capsule Orally onc e a day for 10 days 11/24/2024 Pending Test Test Name Order Date LIPID PROFILE 11/24/2024 LIVER PROFILE 11/24/2024 PROF CHEM 8 (BAS METB) 11/24/2024 XR KUB 1 VIEW 11/24/2024 Medications Administered Medication Instructions Date of Administration Dosage Notes Ketorolac Tromethamine 11/24/2024 60 mg Progress Notes * Marcelo BOYCEaDOB:1965 (59 yo F)Acc No.[id number]:11/24/2024 Progress Note Patient: Eli SIMPSON Provider: Dorota Unger ([facility])MD :1965 A ge:59 Y S ex:Female Date:11/24/2024 Address:[address] [place], [place] [id number] Check In:09:02 AM ESTCheck O ut:09:54 AM EST Subjective: * Chief Complaints: * P resents to office for rash around waist. Itching, painful x4 dayshaving bladder spasms. Had left over Cefdinir at home and started taking that 9 days ago * HPI: G eneral: Shinlge rash UTI. * ROS: E ENT: hearing changes d enies. v isual changes d enies.?non-healing mouth sores d enies. s wollen glands or neck lumps d enies. h oarseness d enies. s ore throat d enies. d ifficulty swallowing d enies. n ose bleeds d enies. n jenny congestion d enies. e ar ache d enies. e ar discharge?denies. r inging in ears d enies. l ight sensitivity d enies. e ye pain d enies. b lurring d enies. e ye irritation d enies. d ouble vision d enies.?vision loss d enies. G eneral/Constitutional: Sweats: D enies. F atigue d enies. S leep problems d enies. A norexia d enies. M alaise d enies. W eight loss d enies.?Fatigue or Weakness d enies. F ever or Chills d enies. C ardiovascular: Shortness of Breath w/lying flat d enies. L ightheadedness/dizziness d enies. C hest tightness/ heavy pressure d enies. S welling of legs, ankles, or feet d enies. W aking up with shortness of breath d enies. C hest pain denies. P alpitations d enies. W eight gain d enies. R espiratory: Chronic or frequent cough d enies. C oughing up blood?denies. D ifficulty breathing d enies. P roductive cough d enies. S noring?denies. S hortness of breath that awakens from sleep (PND) d enies. C hest pain d enies. S putum production d enies. W heezing d enies. M usculoskeletal: Joint pain d enies. J oint Fluid d enies. B ack pain d enies. K nee pain d enies. N charlee pain d enies. J oint Stiffness d enies. M uscle cramps d enies. W eakness of muscles d enies. A rthritis d enies. M uscle aches d enies. P ain in shoulder(s) d enies. S wollen joints d enies. * Active Problem List E66.9 Obesity (BMI 30-39.9 ) Modified On:03/22/2023U Status:confirmed M19.90 Osteoarthritis Modified On:02/07/2023U Status:confirmed N12 Pyelonephritis Modified On:02/01/2023U Status:confirmed E55.9 Vitamin D deficiency Modified On:02/01/2023U Status:confirmed M75.40 Shoulder impingement syndrome Modified On:02/01/2023U Status:confirmed M79.2 Neuropathic pain Modified On:02/01/2023U Status:confirmed G47.00 Insomnia Modified On:02/01/2023U Status:confirmed N39.3 Female stress incont inence Modified On:02/01/2023U Status:confirmed M85.80 Osteopenia Modified On:02/01/2023 Status:confirmed M51.9 Lumbar disc disease Modified On:02/01/2023 Status:confirmed I00 Rheumatoid arteritis Modified On:02/01/2023 Status:confirmed I10 Hypertension Modified On:02/01/2023 Status:confirmed U07.1 COVID-19 Modified On:04/23/2023 Status:confirmed 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 Russell Lithotripsy- stent placement Surgery for urinary incontinence 2023 * Hospitalization/Major Diagno stic Procedure: * Family History: F ather: alive, alcoholism. M other: , arthritis, depression, hypertension. B zaynaber(s): alive. D veda(s): alive. M aternal Grandmother: , colon cancer, diagnosed with Other malignant neoplasm of unspecified site. 1 brother(s) . 1 daughter(s) - healthy. . * Social History: T obacco Use: T obacco Use/Smoking P atient is a n onsmoker D rug/Alcohol: A DEVI-C (Standard) D id you have a drink containing alcohol in the past year? N o P oints 0 I nterpretation N egative n on smoker. * Medications: T akingAbilify(ARIPiprazole) 5 MG Tablet 1 tablet Orally Once a day Amitriptyline HCl 50 MG Tablet TAKE 1 TABLET BY MOUTH EVERY NIGHT AT BEDTIME Ammonium Lactate 12 % Cream small amount Externally Twice a day Cefdinir 300 MG Capsule 2 capsule Orally once a day CeleBREX(Celecoxib) 200 MG Capsule 1 capsule with food Orally Once a day , Notes to Pharmacist: PRNhydrOXYzine HCl 25 MG Tablet 1 tablet as needed Orally Q 4 hours Lopressor(Metoprolol Tartrate) 50 MG Tablet 1 tab Orally Twice a day Ondansetron 4 MG Tablet Disintegrating 1 tablet on the tongue and allow to dissolve Orally Once a day , Notes to Pharmacist: PRNPristiq(Desvenlafaxine Succinate ER) 100 MG Tablet Extended Release 24 Hour 1 tablet Orally Once a day Tylenol Extra Strength(Acetaminophen) 500 MG Tablet 1 tablet as needed Orally every 6 hrs , Notes to Pharmacist: PRNVitamin D 50 MCG (1999 UT) Capsule 1 capsule Orally Once a day Taking Abilify(ARIPiprazole) 5 MG Tablet 1 tablet Orally Once a day Taking Amitriptyline HCl 50 MG Tablet TAKE 1 TABLET BY MOUTH EVERY NIGHT AT BEDTIME Taking Ammonium Lactate 12 % Cream small amount Externally Twice a day Taking Cefdinir 300 MG Capsule 2 capsule Orally once a day Taking CeleBREX(Celecoxib) 200 MG Capsule 1 capsule with food Orally Once a day , Notes to Pharmacist: PRNTaking hydrOXYzine HCl 25 MG Tablet 1 tablet as needed Orally Q 4 hours Taking Lopressor(Metoprolol Tartrate) 50 MG Tablet 1 tab Orally Twice a day Taking Ondansetron 4 MG Tablet Disintegrating 1 tablet on the tongue and allow to dissolve Orally Once a day , Notes to Pharmacist: PRNTaking Pristiq(Desvenlafaxine Succinate ER) 100 MG Tablet Extended Release 24 Hour 1 tablet Orally Once a day Taking Tylenol Extra Strength(Acetaminophen) 500 MG Tablet 1 tablet as needed Orally every 6 hrs , Notes to Pharmacist: PRNTaking Vitamin D 50 MCG (1999 UT) Capsule 1 capsule Orally Once a day DiscontinuedPristiq(Desvenlafaxine Succinate ER) 50 MG Tablet Extended Release 24 Hour 1 tablet Orally Once a day Medication List reviewed and reconciled with the patientDiscontinued Pristiq(Desvenlafaxine Succinate ER) 50 MG Tablet Extended Release 24 Hour 1 tablet Orally Once a day Medication List reviewed and reconciled with the patient * Allergies: N .K.D.A.no[Allergies Verified] Objective: * Vitals: W t:166.8lbs, Ht: 64 in, BP:160/98mm Hg, BMI:28.63Index, Ht-cm: 162.56 cm, Wt-k.66 kg. * Examination: P hysical Exam: GENERAL: w ell developed, well nourished, in no acute distress. HEAD: n ormocephalic/atraumatic. EYES: p upils equal, round and reactive to light, conjunctivae and sclerae normal. EARS: n o deformity or lesion of external ear, canals and TM appear normal bilaterally, TM's intact, not inflamed with normal light reflex, hearing grossly normal to conversational speech. NOSE: n o deformity, discharge, inflammation, or lesions.? MOUTH: m ucous membranes moist, normal oropharynx and posterior pharynx without lesions or exudates, tongue normal, dentition normal. NECK: n charlee supple, no masses or palpable cervical nodes, trachea midline, thyroid without nodules, masses, tenderness, or enlargement. CHEST: n o chest wall deformity, no chest wall tenderness.? LUNGS: n ormal respiratory effort and clear to auscultation, no wheezes, rales, or rhonchi, good air exchange. CARDIO: r egular rate and rhythm, normal S1 and S2, nor murmur, rub, or gallop. PULSES: n ormal capillary refill. ABDOMEN: s oft, non-distended, non-tender, no masses. MUSCULOSKELETAL: n o deformity or scoliosis noted, normal range of motion, joints normal, no erythema, edema, effusion, or ecchymosis. EXTREMITY: n o clubbing, cyanosis, edema, or deformity with normal ROM in both upper and lower bilateral extremities. NEUROLOGIC: g rossly normal. SKIN: n o rashes, ulcerations, or suspicious lesions. LYMPH NODES: n o cervical adenopathy, nodes normal. MENTAL STATUS: a lert and oriented x3, normal mood and affect. Assessment: * Assessment: 1. B ladder spasms - N32.89 (Primary) 2 . S hingles - B02.9 ?3. H ypercholesteremia - E78.00 Plan: * Treatment: * Therapeutic Injections: Ketorolac Tromethamine : 60 mg (Route: Intramuscular) given by Liseth Ericka , MR on right gluteus (Shingles) * Labs: * L ab: UA DIP NONAUTO WO MICRO (36281) - IN OFFICE (Collection Date & Time - 11/24/2024) Value Reference Range C OLOR yellow * C LARITY clear * G LUCOSE neg * B ILIRUBIN neg * K ETONE neg * S PECIFIC GRAVITY 1.010 * B LOOD trace * P H 7.0 * P ROTEIN neg * U ROBILINOGEN neg * N ITRITE neg * L EUKOCYTE ESTERASE trace * Procedure Codes: 9 6372 THERAP.INJ. OF MED. INTRAMUSCULAR OR [id number] TORADOL, PER 15 MG, Units: 4.00 , Modifiers: JZ 86286 URINALYSIS WO MICRO * Preventive Medicine: Screenings/Counseling: B W[place] ACTION PLAN Above Normal BMI Follow-up D ietary management education, guidance, and counseling See treatment section of progress note for complete details of management plan. * * Sign off status: Completed Visit Status: C HK (Check Out) true * Provider: Dorota Unger ([facility])MD Date: 0 11/24/2024 Generated for Printi ng/Faxing/eTransmitting on: 0 12/29/2024 06:47 AM EDT History and Physical Notes * HPI (History of Present Illness) Category Sub-Category Detail Notes Category Not es General Shinlge rash UTI Examination Category Sub-Category Detail Notes Category Not es Physical Exam GENERAL: well developed, well nourished, in no acute distress HEAD: normocephalic/atraum atic EYES: pupils equal, round and reactive to light, conjunctivae and sclerae normal EARS: no deformity or lesi on of external ear, canals and TM appear normal bilaterally, TM's intact, not inflamed with normal light reflex, hearing grossly normal to conversational speech NOSE: no deformity, discha rge, inflammation, or lesions MOUTH: mucous membranes anabel st, normal oropharynx and posterior pharynx without lesions or exudates, tongue normal, dentition normal NECK: neck supple, no mass es or palpable cervical nodes, trachea midline, thyroid without nodules, masses, tenderness, or enlargement CHEST: no chest wall deform ity, no chest wall tenderness LUNGS: normal respiratory e ffort and clear to auscultation, no wheezes, rales, or rhonchi, good air exchange CARDIO: regular rate and rhy thm, normal S1 and S2, nor murmur, rub, or gallop PULSES: normal capillary ref ill ABDOMEN: soft, non-distended, non-tender, no masses RECTAL: MUSCULOSKELETAL: no deformity or scol iosis noted, normal range of motion, joints normal, no erythema, edema, effusion, or ecchymosis EXTREMITY: no clubbing, cyanosi s, edema, or deformity with normal ROM in both upper and lower bilateral extremities NEUROLOGIC: grossly normal SKIN: no rashes, ulceratio ns, or suspicious lesions LYMPH NODES: no cervical adenopat hy, nodes normal MENTAL STATUS: alert and oriented x 3, normal mood and affect
--- OUTSIDE RECORDS SUMMARY | 2024-11-24 08:49 | XMS_ITS ---
Author Organization The [facility] in [place] Address [address] [place] [address] Care Team Providers Care Steam Boiler Fireman Name Role Phone Adam Unger Primary Care Provider [phone] REASON FOR VISIT KUB results Encounters Encounter Location Date Provider Diagnosis [facility] [address] [place] [address] 11/24/2024 Adam Unger Plan Of Treatment No Information Progress Notes * Marcelo BOYCEJenniferB:1965 (59 yo F)Acc No.[id number]:11/24/2024 Patient: Eli SIMPSON :1965 A ge:59 Y S ex:Female Address:[address] [place] [address], [phone] * true * Date: Generated for Milla benoit/Hari/eTransmitting on: 0 12/29/2024 06:47 AM EDT
--- OUTSIDE RECORDS SUMMARY | 2024-11-25 07:44 | XMS_ITS ---
Author Organization The [facility] in [place] Address [address] [place] [address] Care Team Providers Care Marketing Copywriter Name Role Phone Adam Unger Primary Care Provider [phone] REASON FOR VISIT acyclovir cream Medications Medication SIG (Take, Route, Frequency, Duration) Notes Start Date End Date Status Zovirax 5 % 1 application Haircutter ally Five times a day for 4 days 11/24/2024 Active Encounters Encounter Location Date Provider Diagnosis [address] [address] 11/25/2024 Adam Unger Bladder spasms N32.8 9 Assessments Encounter Date Diagnosis (ICD Code) Assessment Notes Treatment Notes Treatment Clinical Notes Section Notes 11/25/2024 Bladder spasms (ICD-10 - N32.89) Plan Of Treatment Medication Medication Name Sig Start Date Stop Date Notes Zovirax 5 % 1 application Haircutter ally Five times a day for 4 days 11/24/2024 Progress Notes * Elizabeth BOYCEarmindaaDOB:1965 (59 yo F)Acc No.[id number]:11/25/2024 Patient: Eli SIMPSON :1965 A ge:59 Y S ex:Female Address:[address] [place] [address], [address] * Refills Refill Zovirax Ointment, 5 %, Externally, 15, 1 application, Five times a day, 4 days, Refills=1 * true * Date: Generated for Printi kaycee/Hari/Suyapa on: 0 12/29/2024 06:47 AM EDT
--- OUTSIDE RECORDS SUMMARY | 2024-12-29 06:46 | XMS_ITS | CCD ---
[facility] Prov[facility] Care Landcare Officer Name Role Phone Phillip Bruner Primary Care Physician LUE ., AUBRIE M Attending Unavailable LUE ., AUBRIE M Admitting Unavailable HOY ., DR FISHER Primary Care Unavailable DIAB ., CHANEL Attending Unavailable HOY ., DR FISHER Primary Care Unavailable SHIRLENE, FRANCK Consulting Unavailable DIAB ., CHANEL Admitting Unavailable SOPHIA . NATALIO Consulting Unavailable DIAB ., CHANEL Consulting Unavailable HOLiz ., DR FISHER Primary Care Unavailable EUGENIO DIAMOND Attending Unavailable EUGENIO DIAMOND Admitting Unavailable LUE ., AUBRIE M Attending Unavailable LUE ., UABRIE M Admitting Unavailable HOY ., DR FISHER [...] LOPEZ Admitting Unavailable ANABEL LOPEZ Consulting Unavailable HOY ., DR FISHER Consulting Unavailable HOY ., DR FISHER Attending Unavailable HOY .DR FISHER Admitting Unavailable HOLiz .DR FISHER Primary Care Unavailable NADEGE GANNON Consulting Unavailable KAILASH TOLEDO Attending Unavailable TREKAILASH Admitting Unavailable HOY ., DR FISHER Primary Care Unavailable TAMEKA, DR JUDSON Valera Consulting Unavailable TREKAILASH Consulting Unavailable HOY ., DR FISHER Primary Care Unavailable GINO ROE ., DR TRACY Sexton Attending Unavaila ble CHRISTIAN JR ., DR TRACY Sexton Admitting Unavaila ble HOY ., DR FISHER Primary Care Unavailable HIGHLANDER, PETER D Attending Unavailable HIGHLANDER, [...] Unavailable WEST, DR BENI Lugo Consulting Unavailable LUE ., AUBRIE Fernandez Attending Unavailable LUE ., AUBRIE Fernandez Admitting Unavailable WEST, DR BENI Lugo Consulting Unavailable HOY ., DR FISHER Primary Care Unavailable LUE ., AUBRIE Fernandez Consulting Unavailable HOY ., DR FISHER Primary Care Unavailable WEST, DR BENI Lugo Consulting Unavailable HIGHLANDER, PETER D Attending Unavailable HIGHLANDER, PETER D Admitting Unavailable HIGHLANDER, PETER D Consulting Unavailable Phillip Bruner MD Primary Care Provider SÁNCHEZ HAMMER Attending Unavailable MCKAYLA ERICKSON Attending Unavailable MCKAYLA ERICKSON Referring Unavailable Phillip Bruner MD Primary Care Provider [phone] Lue, Aubrie M. Admitting Unavailable Lue, Aubrie MAgustin Attending Unavailable Lue, Aubrie M. Referring Unavailable TREKAILASH PERAZA Attending Unavailable TRE, KAILASH E Admitting Unavailable Lue, Aubrie M. Admitting Unavailable Lue, Aubrie M. Attending Unavailable Lue, Aubrie M. Referring Unavailable KAILASH TOLEDO Attending Unavailable Phillip Bruner MD Primary Care Provider [phone] DASIA VILLEGAS Attending Unavailable PHILLIP BRUNER Referring Unavailable PHILLIP BRUNER Primary Care Unavailable Phillip Bruner MD Primary Care Provider [phone] Irving KENDALL, Mayito Parker Emergency Provider Warner Lentz MD Admit Provider Warner Lentz MD Attending Provider DASIA VILLEGAS Attending Unavailable HOLiz, PHILLIP M Referring Unavailable HOY, PHILLIP M Primary Care Unavailable DASIA VILLEGAS Attending Unavailable DIMITRIY, PHILLIP M Referring Unavailable HOY, PHILLIP M Primary Care Unavailable DASIA VILLEGAS Attending Unavailable ZOHREH, PHILLIP M Referring Unavailable HOY, PHILLIP M Primary Care Unavailable DASIA VILLEGAS Attending Unavailable HOY, PHILLIP M Referring Unavailable HOY, PHILLIP M Primary Care Unavailable Aubrie Nolasco Attending Unavailable Elana Santillan Admitting Unavailable Elana Santillan Attending Unavailable Aubrie Nolasco Referring Unavailable Aubrie Nolasco Admitting Unavailable Aubrie Nolasco Attending Unavailable Elana Santillan Attending Unavailable Zohreh, Phillip M Primary Care Unavailable Warner Lentz Admitting Unavailable Warner Lentz Attending Unavailable Tay Guerra Admitting Unavailab Tay Medellin Attending Unavailab Adam Allenlas Rebecca Primary Care Unavailable Aubrie Nolasco Attending Unavailable Aubrie Nolasco Attending Unavailable Phillip Bruner MD Primary Care Provider [phone] Allergies Allergy Classification Reported Allergen(s) Allergy Type Date of Onset Reaction(s) Facility (3 sources) No Known Medication Allergies; 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: [No Known Medication Allergies] Propensity to adverse reactions (disorder) [facility] Medications Current Medications Medication Drug Class(es) Dates Sig (Normalized) Sig (Original) acetaminophen 325 mg / HYDROcodone bitartrate 5 mg oral tablet (4 sources) Opioid Agonist Start: 01-13-2015 take 1 tablet by mouth every six hours as needed HYDROcodone-aceta minophen (NORCO) 5-325 mg per tablet Take 1 tablet by mouth every 6 hours as needed. 15 tablet 0 04/14/2015 Active ALPRAZolam 0.25 mg oral tablet (3 sources) Benzodiazepine Start: 03-24-2022 take 4 tablets by mouth every eight hours Xanax 0.25 mg Tab mg tab(s), Oral, q8hr, Refills(s) 0 Start Date: 03/24/22 Status: Ordered Start: 11-08-2021 ALPRAZolam (XA NAX) 0.25 mg tablet 11/08/2021 Active amitriptyline hydrochloride 50 mg oral tablet (4 sources) Tricyclic Antidepressant Start: 08-25-2024 take 1 tablet by mouth once daily Amitriptyline 50 mg tablet Active 50 MG PO Daily August 25, 2024 12:00am Start: 08-15-2024 amitriptyline (ELAVIL) 50 mg tablet 08/15/2024 Active take 1 tablet by robyn th once daily at bedtime amitriptyline (ELAVIL) 25 mg tablet Take 25 mg by mouth daily at bedtime. Active ARIPiprazole 2 mg oral tablet (13 sources) Atypical Antipsychotic Start: 06-16-2022 End: 08-18-2024 take 1 mg by mouth once daily Abilify 2 mg Tab mg tab(s), Oral, Daily Start Date: 06/16/22 Status: Ordered aspirin 81 mg delayed release oral tablet (7 sources) Platelet Aggregation Inhibitor, Nonsteroidal Anti-inflammatory Drug Start: 10-19-2023 take 1 tablet by mouth once daily aspirin 81 mg Oral EC Tab 81 mg = 1 tab(s), Oral, Daily, Prophylaxis Start Date: 10/19/23 Status: Ordered Repeat number: 1 Start: 08-09-2021 take 1 tablet by robyn [...] Status: Ordered celecoxib 200 mg oral capsule (8 sources) Nonsteroidal Anti-inflammatory Drug Start: 11-02-2022 celecoxib (CeleBREX) 200 MG capsule 1 (one) time each day at the same time 11/02/2022 Active cholecalciferol 0.05 mg oral capsule (6 sources) Vitamin D cholecalciferol (Vitamin D-3) 50 MCG (2000 UT) capsule 1 capsule 1 (one) time each day at the same time Active CHOLECALCIFEROL, VITAMIN D3, (VITAMIN D3 ORAL) (1 source) CHOLECALCIFEROL, VITAMIN D3, (VITAMIN D3 ORAL) Take by mouth. Active 24 hr desvenlafaxine succinate 50 mg extended release oral tablet (6 sources) Serotonin and Norepinephrine Reuptake Inhibitor Start: 08-25-2024 take 1 tablet by mouth once daily Desvenlafaxine Succinate 50 mg tablet extended release 24 hr Active 150 MG PO Daily August 25, 2024 12:00am Start: 06-20-2024 take 1 tablet by robyn th once daily desvenlafaxine (PRISTIQ) 100 mg 24 hr tablet Indications: Severe episode of recurrent major depressive disorder, without psychotic features (CMS-HCC) Take 1 tablet (100 mg total) by mouth once daily. 90 tablet 06/20/2024 Active Start: 04-29-2024 take 1 tablet by robyn th every twenty-four hours in the morning desvenlafaxine (PRISTIQ) 50 mg 24 hr tablet Indications: Severe episode of recurrent major depressive disorder, without psychotic features (CMS-HCC) Take 1 tablet (50 mg total) by mouth in the morning. Take with 100 mg tablet for total of 150 mg daily.. 30 tablet 08/18/2024 Active diazePAM 10 mg oral tablet (1 source) Benzodiazepine Start: 03-24-2022 take 1 tablet by mouth once as needed for anxiety Valium 10 mg Tab 10 mg = 1 tab(s), Oral, Once, PRN for anxiety, Take one hour before procedure, # 1 tab(s), Refills(s) 0, Pharmacy: [facility] [id number], 161, cm, 03/24/22 13:34:00 EST, Height/Length Dosing, 65, kg, 05/10/21 12:23:00 EST, Weight Dosing Start Date: 03/24/22 Status: Ordered docusate sodium 100 mg oral capsule (4 sources) Start: 07-06-2014 take 1 capsule by mouth twice daily docusate sodium (COLACE) 100 mg capsule Take 1 capsule by mouth twice daily. 30 capsule 0 01/13/2015 Active escitalopram 20 mg oral tablet (19 sources) Serotonin Reuptake Inhibitor Start: 03-14-2023 take 1 tablet by mouth once daily escitalopram (Lexapro) 20 MG tablet Take 20 mg by mouth Daily 03/14/2023 Active Start: 06-03-2020 take 1 tablet by robyn th once daily Lexapro 10 mg Tab 10 mg = 1 tab(s), Oral, Daily, Depression Start Date: 06/03/20 Status: Ordered Repeat number: 1 estradiol 0.1 mg/ml vaginal cream (19 sources) Estrogen Start: 10-18-2023 estradiol (Est race) [...] x 2 weeks, then 2x weekly thereafter, [facility] [id number], 161, cm, 06/16/22 11:27:00 EST, Height/Length Dosing, 70.1, kg, 06/16/22 11:27:00 EST, Weight Dosing Start Date: 06/16/22 Status: Ordered Quantity: 42.5 Unit: g Repeat number: 4 Start: 01-28-2021 Estrace 0.1 mg /g Cream 1 gm, Topical, MonWedFri, 42.5 gm, Refill(s) 11, Apply peasize amount to urethral/vaginal area M-W-F for two weeks. Then twice weekly after., [facility]/pharmacy #[id number], 163, cm, 01/28/21 9:13:00 EDT, Height/Length Dosing, 65, kg, 01/28/21 9:13:00 EDT, Weigh... Start Date: 01/28/21 Status: Ordered Start: 01-28-2021 Estrace 0.1 mg /g Cream 1 gm, Topical, MonWedFri, 42.5 gm, Refill(s) 11, Apply peasize amount to urethral/vaginal area M-W-F for two weeks. Then twice weekly after., [facility]/pharmacy #[id number], 163, cm, 01/28/21 9:13:00 EDT, Height/Length Dosing, 65, kg, 01/28/21 9:13:00 EDT, Weigh... Start Date: 01/28/21 Status: Ordered estrogens, conjugated (fci) 0.3 mg oral tablet (2 sources) Estrogen Start: 01-06-2015 take 1 tablet by mouth once daily estrogens conjugated (PREMARIN) 0.3 mg tablet Take 1 tablet by mouth once daily. 0 01/06/2015 Active hydroCHLOROthiazide 12.5 mg oral capsule (15 sources) Thiazide Diuretic Start: 10-11-2022 take 1 capsule by mouth once daily hydrochlorothiazide 12.5 mg Cap 12.5 mg = 1 cap(s), Oral, Daily, Refills(s) 0 Start Date: 10/11/22 Status: Ordered Repeat number: 1 Start: 08-10-2020 take 1 tablet by robyn th once daily hydrochlorothiazide 25 mg oral tablet 25 mg = 1 tab(s), Oral, Daily, # 90 tab(s), Refills(s) 3, Pharmacy: [facility]/pharmacy #[id number], 163, cm, 08/10/20 15:02:00 EDT, Height/Length Dosing, 65.5, kg, 08/10/20 15:02:00 EDT, Weight Dosing Start Date: 08/10/20 Status: Ordered Start: 11-16-2014 take 1 tablet by robyn th twice daily hydrochlorothiazide (HYDRODIURIL, ESIDRIX) 25 mg tablet Take 1 tablet by mouth twice daily. 60 tablet 6 11/16/2014 Active ibuprofen 600 mg oral tablet (4 sources) Nonsteroidal Anti-inflammatory Drug Start: 04-14-2015 take [...] Ordered metoprolol tartrate 50 mg oral tablet (5 sources) beta-Adrenergic Lisette Start: 11-30-2018 take 1 tablet by mouth twice daily metoprolol tartrate (LOPRESSOR) 50 mg tablet Take 50 mg by mouth 2 (two) times a day. 11 11/30/2018 Active Lopressor 50 MG tablet 1 (one) time each day at the same time Active 24 hr mirabegron 50 mg extended release oral tablet (5 sources) beta3-Adrenergic Agonist Start: 06-16-2022 End: 05-30-2024 take 1 tablet by mouth once daily Myrbetriq 50 mg oral tablet, extended release 50 mg = 1 tab(s), Oral, Daily, X 30 day(s), # 30 tab(s), Refills(s) 11, Pharmacy: [facility] [id number], 161, cm, 06/05/23 9:09:00 EST, Height/Length Dosing, 78, kg, 06/05/23 9:09:00 EST, Weight Dosing Start Date: 06/05/23 Stop Date: 05/30/24 Status: Ordered mirtazapine 30 mg oral tablet (8 sources) Start: 04-02-2024 take 1 tablet by [...] day(s), # 10 cap(s), Refills(s) 0, Pharmacy: [facility] [id number], 163.8, cm, 10/19/23 14:16:00 EDT, Height/Length Dosing, 75.3, kg, 10/19/23 14:16:00 EDT, Weight Dosing Start Date: 10/23/23 Stop Date: 10/28/23 Status: Ordered ondansetron 4 mg oral tablet (1 source) Serotonin-3 Receptor Antagonist Start: 03-30-2022 take 1 tablet by mouth twice daily as needed for nausea ondansetron (ZOFRAN) 4 mg tablet Take 1 tablet (4 mg total) by mouth 2 (two) times a day as needed for nausea. 20 tablet 03/30/2022 Active oxybutynin chloride 5 mg oral tablet (1 [...] # 30 tab(s), Refills(s) 2, Pharmacy: [facility]/pharmacy #[id number], 163, cm, 01/28/21 9:13:00 EDT, Height/Length Dosing, 65, kg, 05/10/21 12:23:00 EST, Weight Dosing Start Date: 06/14/21 Status: Ordered tamsulosin hydrochloride 0.4 mg oral capsule (2 sources) alpha-Adrenergic Lisette Start: 06-29-2014 take 1 capsule by mouth once daily at bedtime tamsulosin (FLOMAX) 0.4 mg cp24 Take 1 capsule by mouth daily at bedtime. 30 capsule 1 06/29/2014 Active venlafaxine 37.5 mg oral tablet (2 sources) Serotonin and Norepinephrine Reuptake Inhibitor take 2 tablets by mouth once daily venlafaxine (EFFEXOR) 37.5 mg tablet Take 75 mg by mouth once daily. Active Vitamin D (9 sources) Start: 03-24-2022 Vitamin D International_Unit , Oral, qWeek, Refills(s) 0 Start Date: 03/24/22 Status: Ordered Vitamin D3 (5 sources) Start: 10-19-2023 take 50 ug by mouth once daily Vitamin D3 50 mcg, Oral, Daily, Refills(s) 0, Prophylaxis Start Date: 10/19/23 Status: Ordered Repeat number: 1 Start: 10-19-2023 take 50 ug by mouth once daily Vitamin D3 50 mcg, Oral, Daily, Refills(s) 0, Prophylaxis Start Date: 10/19/23 Status: Ordered Completed/Discontinued Medications Medication Drug Class(es) Dates Sig (Normalized) Sig (Original) cariprazine 1.5 mg oral capsule (1 source) Atypical Antipsychotic Start: 06-20-2024 End: 08-18-2024 take 1 capsule by mouth in the morning cariprazine (VRAYLAR) 1.5 mg capsule Indications: Severe episode of recurrent major depressive disorder, without psychotic features (CMS-HCC) Take 1 capsule (1.5 mg total) by mouth in the morning. 30 capsule 1 06/20/2024 08/18/2024 Discontinued (Side effects) cephalexin 500 mg oral capsule (1 source) Cephalosporin Antibacterial Start: 03-24-2022 take 1 capsule by mouth every twelve hours Keflex 500 mg Cap 500 mg = 1 cap(s), Oral, q12hr, Take one cap morning of the procedure and one cap 12 hours later, # 2 cap(s), Refills(s) 0, Pharmacy: [facility] [id number], 161, cm, 03/24/22 13:34:00 EST, Height/Length Dosing, 65, kg, 05/10/21 12:23:00 EST, Weight... 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] Onset: 06-28-2022 10-19-2023 Chronic Genitourinary symptoms and ill-defined conditions (20 sources) Incontinence; 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: [Urinary incontinence] Onset: 06-11-2014 06-03-2020 Chronic Genitourinary symptoms and ill-defined conditions (20 sources) Nocturia; 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: [Nocturia] Onset: 06-11-2014 Episodic Hyperplasia of prostate (15 sources) Benign prostatic hypertrophy with outflow obstruction 08-10-2020 Chronic Mood disorders (10 sources) Severe recurrent major depression without psychotic [...] Chronic Other diseases of bladder and urethra (15 sources) Contracture of bladder neck 08-10-2020 Chronic Other diseases of bladder and urethra (15 sources) Overactive bladder 05-10-2021 Chronic Other diseases [...] Episodic Other diseases of bladder and urethra (16 sources) Urethral intrinsic sphincter deficiency; 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: [Intrinsic sphincter deficiency (ISD)] Onset: 06-05-2023 10-11-2022 Episodic Other nervous system disorders (5 sources) Neuropathy 10-19-2023 Chronic Other non-traumatic joint [...] 06-06-2024 Episodic Rheumatoid arthritis and related disease (8 sources) Rheumatoid arthritis 10-19-2023 Chronic Spondylosis; intervertebral disc disorders; other back problems (4 sources) Low back pain; 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: [Lumbar pain] 05-05-2024 Episodic Sprains and strains (4 sources) Sprain of unspecified ligament of left ankle, initial encounter; 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: [SPRAIN UNS LIGAMENT LT ANKLE INIT] Onset: 07-27-2022 Episodic Unclassified (13 sources) Asymptomatic microscopic hematuria 06-16-2022 Past or Other Problems Problem Classification Problem Date Documented Da te Episodic/Chronic Calculus of urinary tract (20 sources) Kidney stone; 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: [Calculus of kidney] Onset: 06-11-2014 Episodic Malaise and fatigue (2 sources) Asthenia; 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: [Weakness] Onset: 07-15-2013 07-15-2013 Episodic Other aftercare (1 source) 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; 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: [OTH LAP POLISHER CURRENT DRUG THERAPY] Onset: 06-27-2022 Episodic Other aftercare (1 source) nursing home (current) use of aspirin; 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: [LAP POLISHER CURRENT USE OF ASPIRIN] Onset: 06-28-2022 Episodic Other bone disease and musculoskeletal deformities (9 sources) Osteopenia; 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: [Other specified disorders of [...] UTERUS] Onset: 06-28-2022 Episodic Urinary tract infections (2 sources) Lower urinary tract infectious disease; 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: [Urinary tract infection, site not specified] Onset: 06-25-2014 06-25-2014 Episodic Results Test Name Value Interpretation Reference Range Facility MM TOMOSYNTHESIS SCREENING B Ion 12-23-2024 [place] [id number] Mammography Report Signed Patient: ELI BOYCE MR#: [id number] : 1965 Acct:[id number] Age/Sex: 59 / F ADM Date: 12/23/24 Loc: MAMMO Attending Dr: Sánchez Hammer D.O. Ordering Physician: Sánchez Hammer D.O. Results: Date of Service: 12/23/24 Follow Up: Procedure(s): MM tomosynthesis screening BI Accession Number(s): [id number] cc: Sánchez Hammer D.O.; Phillip Bruner M.D. Patient Name: ELI BOYCE MR#: [id number] : 1965 Exam Date: 12/23/2024 Ordering Doctor: DR SÁNCHEZ HAMMER . RADIOLOGY REPORT PROCEDURE: MM TOMOSYNTHESIS SCREENING BI COMPARISON: MG MAMM SCREEN JEN W CAD, 04/22/2019. MG MAMM SCREEN JEN W CAD, 04/11/2018. MG MAMM SCREEN JEN W CAD, 02/23/2017. MG MAMM JEN SCRN W CAD DIG, 12/25/2013. INDICATIONS: SCREENING FOR MALIGNANCY OF BREASTS Calculator Name NCI Breast Cancer Risk Assessment Tool 5 Year Breast Cancer Risk 2.30% Lifetime Breast Cancer Risk 10.60% Personal Breast Cancer No Personal Ovarian Cancer No Treatments None Family Cancers Grandmother-maternal with colon cancer at age 80; Mother with colon cancer at age 73. LOCATION: [facility] BREAST COMPOSITION: The breasts are heterogeneously dense, which may obscure small masses. FINDINGS: DIAGNOSTIC CATEGORY 1--NEGATIVE. RIGHT BREAST: No significant suspicious finding. LEFT BREAST: No significant suspicious finding. RECOMMENDATIONS: ROUTINE MAMMOGRAM AND CLINICAL EVALUATION IN 12 MONTHS. PLEASE NOTE: A NORMAL MAMMOGRAM DOES NOT EXCLUDE THE POSSIBILITY OF BREAST CANCER. A CLINICALLY SUSPICIOUS PALPABLE LUMP SHOULD BE BIOPSIED. Dictated by: Graeme Rutherford DO on 12/23/2024 at 16:09 Approved by: Graeme Rutherford DO on 12/23/2024 at 16:10 Dictated By: Graeme Rutherford M.D. Signed By: 12/23/24 161 DD/ 09 TD/TT: Board Worker: [facility] Radiology, Radiologist, MD - 12/23/2024 [place] [address] Mammography Report Signed Patient: ELI BOYCE MR#: [id number] : 1965 Acct:[id number] Age/Sex: 59 / F ADM Date: 12/23/24 Loc: MAMMO Attending Dr: Sánchez Hammer D.O. Ordering Physician: Sánchez Hammer D.O. Results: Date of Service: 12/23/24 Follow Up: Procedure(s): MM tomosynthesis screening BI Accession Number(s): [id number] cc: Sánchez Hammer D.O.; Phillip Bruner M.D. Patient Name: ELI BOYCE MR#: [id number] : 1965 Exam Date: 12/23/2024 Ordering Doctor: DR SÁNCHEZ HAMMER . RADIOLOGY REPORT PROCEDURE: MM TOMOSYNTHESIS SCREENING BI COMPARISON: MG MAMM SCREEN JEN W CAD, 04/22/2019. MG MAMM SCREEN JEN W CAD, 04/11/2018. MG MAMM SCREEN JEN W CAD, 02/23/2017. MG MAMM JEN SCRN W CAD DIG, 12/25/2013. INDICATIONS: SCREENING FOR MALIGNANCY OF BREASTS Calculator Name NCI Breast Cancer Risk Assessment Tool 5 Year Breast Cancer Risk 2.30% Lifetime Breast Cancer Risk 10.60% Personal Breast Cancer No Personal Ovarian Cancer No Treatments None Family Cancers Grandmother-maternal with colon cancer at age 80; Mother with colon cancer at age 73. LOCATION: [facility] BREAST COMPOSITION: The breasts are heterogeneously dense, which may obscure small masses. FINDINGS: DIAGNOSTIC CATEGORY 1--NEGATIVE. RIGHT BREAST: No significant suspicious finding. LEFT BREAST: No significant suspicious finding. RECOMMENDATIONS: ROUTINE MAMMOGRAM AND CLINICAL EVALUATION IN 12 MONTHS. PLEASE NOTE: A NORMAL MAMMOGRAM DOES NOT EXCLUDE THE POSSIBILITY OF BREAST CANCER. A CLINICALLY SUSPICIOUS PALPABLE LUMP SHOULD BE BIOPSIED. Dictated by: Graeme Rutherford DO on 12/23/2024 at 16:09 Approved by: Graeme Rutherford DO on 12/23/2024 at 16:10 Dictated By: Graeme Rutherford M.D. Signed By: 12/23/24 161 DD/ 09 TD/TT: Board Worker: [facility] [employer] Radiology Study observation (narrative) [facility] MM TOMOSYNTHESIS SCREENING B IOrdered By: Radiologist Radiology on 12-23-2024 [facility] [employer] Work Phone: Lipid Panelon 08-26-2024 Cholesterol [Mass/Vol] 188 mg/dL Normal 140-200 [facility] Comment on above: Result Comment: Chol less than 200 mg/dl low risk Chol 201-239 mg/dl borderline risk Chol 240 mg/dl and greater high risk Performed By: #### V [id number], LIPID, TSH3 wRFLX #### [facility] [address] [place] [address] [place] Cholesterol in HDL [Mass/Vol] 48 mg/dL Normal 23-92 [facility] Comment on above: Result Comment: HDL CHOL ATP-III CLASSIFICATION Cardiovascular Risk HDL > or equal to 60 mg/dL LOW HDL < 40 mg/dL HIGH Performed By: #### V [id number], LIPID, TSH3 wRFLX #### [facility] [address] [place] [address] [facility] Cholesterol.total/Clair sterol in HDL [Mass ratio] 3.9 {ratio} Normal <5.0 [facility] Comment on above: Performed By: #### V [id number], LIPID, TSH3 wRFLX #### [facility] [address] [place] [id number] [place] LDL Cholesterol,Calculated 122 mg/dL High 0-100 [facility] Comment on above: Result Comment: LDL ATP III CLASSIFICATION LDL less than 100 mg/dL Optimal LDL 100-129 mg/dL Near or above optimal LDL 130-159 mg/dL Borderline high LDL 160-189 mg/dL High LDL greater than 189 mg/dL Very high Performed By: #### V [id number], LIPID, TSH3 wRFLX #### [address] Triglyceride w/Reflex 91 mg/dL Normal 0-149 [facility] Comment on above: Result Comment: TRIG ATP III CLASSIFICATION TRIG less than 150 mg/dL Normal TRIG 150-199 mg/dL Borderline high TRIG 200-500 mg/dL High TRIG greater than 500 mg/dL Very high Standard traceable to the Center for Disease Conrtrol and Prevention (CDC) test method. Performed By: #### V [id number], LIPID, TSH3 wRFLX #### [address] VLDL CHOLESTEROL 18 mg/dL Normal [facility] Comment on above: Performed By: #### V [id number], LIPID, TSH3 wRFLX #### [address] Thyroid Stim Hormone w/Rflxo n 08-26-2024 Thyroid Stim Hormone w/Rflx 2.92 u[iU]/mL Normal 0.45-5.33 [facility] Comment on above: Performed By: #### V [id number], LIPID, TSH3 wRFLX #### [address] Vitamin D 25 Hydroxy Totalon 08-26-2024 Vitamin D 25 Hydroxy Total 62.1 ng/mL Normal 30-100 [facility] Comment on above: Result Comment: MONET MIN D STATUS 25(OH)VITAMIN D RANGE (ng/mL) Deficient <20 Insufficient 20 to <30 Sufficient 30 to 100 Reference: Lamar MF,Aniya NC, Steven AVILA, et al. Evaluation,treatment, and prevention of vitamin D deficiency; an Endocrine Society clinical practice guideline. JCEM. 2010; 96(7):1911-30. PERFORMED BY: [place] [address] PATHOLOGIST [employer] AMARIS DE LA TORRE M.D. Performed By: #### V [id number], LIPID, TSH3 wRFLX #### [facility] [address] [address] Alanine aminotransferase [En zymatic activity/volume] in Serum or PlasmaOrdered By: Mayito Villatoro on 08-25-2024 ALT [Catalytic activity/Vol] Alanine aminotransferase [Enzymatic activity/volume] in Serum or Plasma 7-52 [facility] Albumin [Mass/volume] in Ser um or Plasma by Bromocresol green (BCG) dye binding methoOrdered By: Mayito Villatoro on 08-25-2024 Albumin BCG dye [Mass/Vol] Albumin [Mass/volume] in Serum or Plasma by Bromocresol green (BCG) dye binding metho 3.5-5.7 [facility] Alkaline phosphatase [Enzyma tic activity/volume] in Serum or PlasmaOrdered By: Mayito Villatoro on 08-25-2024 ALP [Catalytic activity/Vol] Alkaline phosphatase [Enzymatic activity/volume] in Serum or Plasma 34-104 [facility] Amphetamine Screen Ql (U)Ord ered By: Mayito Villatoro on 08-25-2024 Amphetamines Ql (U) Amphetamines screen Negativ e [facility] Appearance of UrineOrdered B y: Mayito Villatoro on 08-25-2024 Appearance (U) Urine appearance Abnormal Clear [facility] Aspartate aminotransferase [ Enzymatic activity/volume] in Serum or PlasmaOrdered By: Mayito Villatoro 08-25-2024 AST [Catalytic activity/Vol] Aspartate aminotransferase [Enzymatic activity/volume] in Serum or Plasma 13-39 [facility] Bacteria [Presence] in Urine by AutomatedOrdered By: Mayito Villatoro on 08-25-2024 Bacteria Auto Ql (U) Bacteria [Presence] in Urine by Automated None Seen [facility] Barbiturates [Presence] in U rine by Screen methodOrdered By: Mayito Villatoro on 08-25-2024 Barbiturates Screen Ql (U) Barbiturates [Presence] in Urine by Screen method Negative [facility] Basophils Auto (Bld) [#/Vol] Ordered By: Mayito Villatoro on 08-25-2024 Basophils (Bld) [#/Vol] Automated basoph il count 0.0-0.2 [facility] Basophils/100 WBC Auto (Bld) Ordered By: Mayito Villatoro on 08-25-2024 Basophils/100 WBC (Bld) Automated basophil % . [facility] Benzodiazepines Screen Ql (U )Ordered By: Mayito Villatoro on 08-25-2024 Benzodiazepines Ql (U) Benzodiazepines [Presence] in Urine by Screen method Negative [facility] Benzoylecgonine [Presence] i n Urine by Screen methodOrdered By: Mayito Villatoro on 08-25-2024 Benzoylecgonine Screen Ql (U) Benzoylecgonine [Presence] in Urine by Screen method Negative [facility] Bilirubin Test strip Ql (U)O rdered By: Mayito Villatoro on 08-25-2024 Bilirubin Ql (U) Bilirubin.total [Presence] in Urine by Test strip Negative [facility] Bilirubin.total [Mass/volume ] in Serum or PlasmaOrdered By: Mayito Villatoro 08-25-2024 Bilirubin [Mass/Vol] Bilirubin.total [Mass/volume] in Serum or Plasma 0.3-1.0 [facility] Calcium [Mass/volume] in Ser um or PlasmaOrdered By: Mayito Villatoro 08-25-2024 Calcium [Mass/Vol] Calcium [Mass/volume ] in Serum or Plasma 8.6-10.3 [facility] Cannabinoids [Presence] in U rine by Screen methodOrdered By: Mayito Villatoro 08-25-2024 Cannabinoids Screen Ql (U) Cannabinoids [Presence] in Urine by Screen method Negative [facility] Comment on above: These are unconfirme d results and should not be used for legal purposes. Drug Cut-Off Concentration: AMPH 1000 ng/mL ZACH 200 ng/mL ROBIN 200 ng/mL COCM 300 ng/mL OP 300 ng/mL PCP 25 ng/mL THC 20 ng/mL Carbon dioxide, total [Moles /volume] in Serum or PlasmaOrdered By: Mayito Villatoro 08-25-2024 CO2 [Moles/Vol] Carbon dioxide, tota l [Moles/volume] in Serum or Plasma 21.0-31.0 [facility] Chloride [Moles/volume] in S michelle or PlasmaOrdered By: Mayito Villatoro 08-25-2024 Chloride [Moles/Vol] Chloride [Moles/volume] in Serum or Plasma 98-107 [facility] Color Auto (U)Ordered By: Desean Villatoro on 08-25-2024 Color (U) Color of Urine by Auto [facility] Blood Count Auto Di ffon 08-25-2024 Basophils (Bld) [#/Vol] 0.0 10*3/uL Normal 0.0-0.2 [facility] Comment on above: Result Comment: PERF ORMED BY: [place] [address] PATHOLOGIST [employer] AMARIS DE LA TORRE M.D. Performed By: #### C BC, CMP, ETOH #### [address] Basophils/100 WBC (Bld) 0.7 % Normal . [facility] Comment on above: Performed By: #### C BC, CMP, ETOH #### [address] Eosinophils (Bld) [#/Vol] 0.0 10*3/uL Normal 0.0-0.45 [facility] Comment on above: Performed By: #### C BC, CMP, ETOH #### [address] Eosinophils/100 WBC (Bld) 0.3 % Normal . [facility] Comment on above: Performed By: #### C BC, CMP, ETOH #### [address] Erythrocyte distribution width (RBC) [Ratio] 12.5 % Normal 11.9-15.3 [facility] Comment on above: Performed By: #### C BC, CMP, ETOH #### [address] Hematocrit (Bld) [Volume fraction] 43.3 % Normal 34.0-46.4 [facility] Comment on above: Performed By: #### C BC, CMP, ETOH #### [address] Hemoglobin (Bld) [Mass/Vol] 14.6 g/dL Normal 11.8-15.4 [facility] Comment on above: Performed By: #### C BC, CMP, ETOH #### [address] Lymphocytes (Bld) [#/Vol] 1.2 10*3/uL Normal 1.00-4.8 [facility] Comment on above: Performed By: #### C BC, CMP, ETOH #### [address] Lymphocytes/100 WBC (Bld) 15.8 % Normal . [facility] Comment on above: Performed By: #### C BC, CMP, ETOH #### [address] MCH (RBC) [Entitic mass] 31.2 pg Normal 24.7-34.3 [facility] Comment on above: Performed By: #### C BC, CMP, ETOH #### [address] MCV (RBC) [Entitic vol] 92.6 fL Normal 80-100 [facility] Comment on above: Performed By: #### C BC, CMP, ETOH #### [address] Mean Corpuscular HGB Conc 33.7 g/dL Normal 32.0-35.0 [facility] Comment on above: Performed By: #### C BC, CMP, ETOH #### [address] Monocytes (Bld) [#/Vol] 0.8 10*3/uL Normal 0.0-0.8 [facility] Comment on above: Performed By: #### C BC, CMP, ETOH #### [address] Monocytes/100 WBC (Bld) 16.07 % Normal 0.00-20.00 [facility] Comment on above: Performed By: #### C BC, CMP, ETOH #### [address] [place] [address] [place] Monocytes/100 WBC (Bld) 10.3 % Normal . [facility] Comment on above: Performed By: #### C BC, CMP, ETOH #### [facility] [address] [place] [address] [place] Neutrophils (Bld) [#/Vol] 5.5 10*3/uL Normal 1.8-7.7 [facility] Comment on above: Performed By: #### C BC, CMP, ETOH #### [facility] [address] [place] [address] [place] Neutrophils/100 WBC (Bld) 72.9 % Normal . [facility] Comment on above: Performed By: #### C BC, CMP, ETOH #### [place] [address] [place] NRBC% 0.1 /100{WBC} Normal 0-0.5 [facility] Comment on above: Performed By: #### C BC, CMP, ETOH #### [place] [address] [place] Platelet mean volume (Bld) [Entitic vol] 8.0 fL Normal 6.3-10.7 [facility] Comment on above: Performed By: #### C BC, CMP, ETOH #### [facility] [address] [place] [id number] [place] Platelets (Bld) [#/Vol] 226 10*3/uL Normal 150-450 [facility] Comment on above: Performed By: #### C BC, CMP, ETOH #### [place] [address] [place] RBC (Bld) [#/Vol] 4.67 10*6/uL Normal 3.60-5.00 [facility] Comment on above: Performed By: #### C BC, CMP, ETOH #### [facility] [address] [place] [address] [place] WBC (Bld) [#/Vol] 7.5 10*3/uL Normal 3.8-11.6 [facility] Comment on above: Performed By: #### C BC, CMP, ETOH #### [facility] [address] Comprehensive Metabolic Pane stephanie 08-25-2024 Albumin [Mass/Vol] 4.1 g/dL Normal 3.5-5.7 [facility] Comment on above: Performed By: #### C BC, CMP, ETOH #### [facility] [address] [place] [address] [place] Albumin/Globulin [Mass ratio] 1.5 {ratio} Normal [facility] Comment on above: Performed By: #### C BC, CMP, ETOH #### [facility] [address] [place] [address] [place] ALP [Catalytic activity/Vol] 81 U/L Normal 34-104 [facility] Comment on above: Performed By: #### C BC, CMP, ETOH #### [address] ALT [Catalytic activity/Vol] 22 U/L Normal 7-52 [facility] Comment on above: Performed By: #### C BC, CMP, ETOH #### [place] [address] [place] Anion gap [Moles/Vol] 13.2 mmol/L Normal 6.0-15.0 [facility] Comment on above: Performed By: #### C BC, CMP, ETOH #### [place] [address] [place] AST [Catalytic activity/Vol] 19 U/L Normal 13-39 [facility] Comment on above: Performed By: #### C BC, CMP, ETOH #### [place] [address] [place] Bilirubin [Mass/Vol] 0.4 mg/dL Normal 0.3-1.0 [facility] Comment on above: Performed By: #### C BC, CMP, ETOH #### [place] [address] [place] Calcium [Mass/Vol] 9.4 mg/dL Normal 8.6-10.3 [facility] Comment on above: Performed By: #### C BC, CMP, ETOH #### [address] Chloride [Moles/Vol] 103 mmol/L Normal 98-107 [facility] Comment on above: Performed By: #### C BC, CMP, ETOH #### [address] CO2 [Moles/Vol] 24.7 mmol/L Normal 21.0-31.0 [facility] Comment on above: Performed By: #### C BC, CMP, ETOH #### [address] Creatinine [Mass/Vol] 0.86 mg/dL Normal 0.60-1.20 [facility] Comment on above: Performed By: #### C BC, CMP, ETOH #### [address] Creatinine Clr Calc Pharmacy 70.77 Normal [facility] Comment on above: Result Comment: PERF ORMED BY: [place] [address] PATHOLOGIST [employer] AMARIS DE LA TORRE M.D. Performed By: #### C BC, CMP, ETOH #### [address] GFR/1.73 sq M.predicted MDRD (S/P/Bld) [Vol rate/Area] mL/min/{1.73_m2} Normal [facility] Comment on above: Performed By: #### C BC, CMP, ETOH #### [address] Globulin (S) [Mass/Vol] 2.8 g/dL Normal [facility] Comment on above: Performed By: #### C BC, CMP, ETOH #### [address] Glucose [Mass/Vol] 114 mg/dL High 70-100 [facility] Comment on above: Result Comment: [facility] Glucose Reference Range is dependent on time and content of last meal. Glucose of more than 200 mg/dL in a nonstressed, ambulatory subject supports the diagnosis of Diabetes Mellitus. ADA recommended reference range Performed By: #### C BC, CMP, ETOH #### [facility] [address] [place] [id number] [place] Potassium [Moles/Vol] 3.9 mmol/L Normal 3.5-5.1 [facility] Comment on above: Performed By: #### C BC, CMP, ETOH #### [facility] [address] [place] [id number] [place] Protein [Mass/Vol] 6.9 g/dL Normal 6.4-8.9 [facility] Comment on above: Performed By: #### C BC, CMP, ETOH #### [facility] [address] [place] [address] [place] Sodium [Moles/Vol] 137 mmol/L Normal 136-145 [facility] Comment on above: Performed By: #### C BC, CMP, ETOH #### [facility] [address] [place] [id number] [place] Urea nitrogen [Mass/Vol] 11 mg/dL Normal 7-25 [facility] Comment on above: Performed By: #### C BC, CMP, ETOH #### [facility] [address] [place] [id number] [place] Creatinine [Mass/volume] in Serum or PlasmaOrdered By: Mayito Villatoro on 08-25-2024 Creatinine [Mass/Vol] Creatinine [Mass/volume] in Serum or Plasma 0.60-1.20 [facility] Dipstick and Microscopicon 0 08-25-2024 Appearance (U) Cloudy Critically abnormal Clear [facility] Comment on above: Order Comment: Name Collection Type:: Clean-Voided Midstream Performed By: #### C UU, ADDONUAPLUS, URDS #### [facility] [address] [place] [id number] [place] Bacteria,Urine Rare Normal None Seen [facility] Comment on above: Order Comment: Name Collection Type:: Clean-Voided Midstream Performed By: #### C UU, ADDONUAPLUS, URDS #### [facility] [address] [place] [id number] [place] Bilirubin,Urine Negative Normal Negative [facility] Comment on above: Order Comment: Name Collection Type:: Clean-Voided Midstream Performed By: #### C UU, ADDONUAPLUS, URDS #### [address] Color (U) Light-Yellow Normal Yellow [facility] Comment on above: Order Comment: Name Collection Type:: Clean-Voided Midstream Performed By: #### C UU, ADDONUAPLUS, URDS #### [address] Glucose Ql (U) Normal Normal Normal [facility] Comment on above: Order Comment: Name Collection Type:: Clean-Voided Midstream Performed By: #### C UU, ADDONUAPLUS, URDS #### [address] Hyaline Casts,Urine None Normal 0-8 [facility] Comment on above: Order Comment: Name Collection Type:: Clean-Voided Midstream Performed By: #### C UU, ADDONUAPLUS, URDS #### [address] Ketones Ql (U) Negative Normal Negative [facility] Comment on above: Order Comment: Name Collection Type:: Clean-Voided Midstream Performed By: #### C UU, ADDONUAPLUS, URDS #### [address] Leukocyte esterase Test strip Ql (U) 3+ High Negative [facility] Comment on above: Order Comment: Name Collection Type:: Clean-Voided Midstream Performed By: #### C UU, ADDONUAPLUS, URDS #### [place] [address] [place] Mucus,Urine Rare Normal [facility] Comment on above: Order Comment: Name Collection Type:: Clean-Voided Midstream Result Comment: PERF ORMED BY: [place] [address] PATHOLOGIST [employer] AMARIS DE LA TORRE M.D. Performed By: #### C UU, ADDONUAPLUS, URDS #### [place] [address] [place] Nitrite,Urine Negative Normal Negative [facility] Comment on above: Order Comment: Name Collection Type:: Clean-Voided Midstream Performed By: #### C UU, ADDONUAPLUS, URDS #### [address] Occult Blood,Urine Negative Normal Negative [facility] Comment on above: Order Comment: Name Collection Type:: Clean-Voided Midstream Result Comment: PERF ORMED BY: [place] [address] PATHOLOGIST [employer] AMARIS DE LA TORRE M.D. Performed By: #### C UU, ADDONUAPLUS, URDS #### [address] pH (U) 6.5 [pH] Normal 5.0-9.0 [facility] Comment on above: Order Comment: Name Collection Type:: Clean-Voided Midstream Performed By: #### C UU, ADDONUAPLUS, URDS #### [address] Protein,Urine Negative Normal Negative [facility] Comment on above: Order Comment: Name Collection Type:: Clean-Voided Midstream Performed By: #### C UU, ADDONUAPLUS, URDS #### [address] RBC,Urine 1-2 Normal 0-4 [facility] Comment on above: Order Comment: Name Collection Type:: Clean-Voided Midstream Performed By: #### C UU, ADDONUAPLUS, URDS #### [address] Specificy [place],Urine 1.016 Normal 1.001-1.030 [facility] Comment on above: Order Comment: Name Collection Type:: Clean-Voided Midstream Performed By: #### C UU, ADDONUAPLUS, URDS #### [facility] [address] [place] [address] [place] Squamous Epithelial Cell,Urine 3-4 High 0-2 [facility] Comment on above: Order Comment: Name Collection Type:: Clean-Voided Midstream Performed By: #### C UU, ADDONUAPLUS, URDS #### [address] Urobilinogen,Urine Normal Normal Normal [facility] Comment on above: Order Comment: Name Collection Type:: Clean-Voided Midstream Performed By: #### C UU, ADDONUAPLUS, URDS #### [address] WBC,Urine 10-19 High 0-4 [facility] Comment on above: Order Comment: Name Collection Type:: Clean-Voided Midstream Performed By: #### C UU, ADDONUAPLUS, URDS #### [address] Drug Screen,Urineon 08-26-19 25 Amphetamine Screen,Urine Negative Normal Negative [facility] Comment on above: Performed By: #### C UU, ADDONUAPLUS, URDS #### [address] Barbiturate Screen,Urine Negative Normal Negative [facility] Comment on above: Performed By: #### C UU, ADDONUAPLUS, URDS #### [address] Benzodiazepines Screen,Urine Negative Normal Negative [facility] Comment on above: Performed By: #### C UU, ADDONUAPLUS, URDS #### [address] Cannabinoid Screen,Urine Negative Normal Negative [facility] Comment on above: Result Comment: Thes e are unconfirmed results and should not be used for legal purposes. Drug Cut-Off Concentration: AMPH 1000 ng/mL ZACH 200 ng/mL ROBIN 200 ng/mL COCM 300 ng/mL OP 300 ng/mL PCP 25 ng/mL THC 20 ng/mL PERFORMED BY: [place] [address] PATHOLOGIST [employer] AMARIS DE LA TORRE M.D. Performed By: #### C UU, ADDONUAPLUS, URDS #### [facility] [address] [place] [address] Cocaine Screen,Urine Negative Normal Negative [facility] Comment on above: Performed By: #### C UU, ADDONUAPLUS, URDS #### [facility] [address] [place] [address] Opiate Screen,Urine Negative Normal Negative [facility] Comment on above: Performed By: #### C UU, ADDONUAPLUS, URDS #### [facility] [address] [place] [address] Phencyclidine Screen,Urine Negative Normal Negative [facility] Comment on above: Performed By: #### C UU, ADDONUAPLUS, URDS #### [facility] [address] [place] [address] [place] Eosinophils Auto (Bld) [#/Vo l]Ordered By: Mayito Villatoro on 08-25-2024 Eosinophils (Bld) [#/Vol] Automated eosinophil count 0.0-0.45 [facility] Eosinophils/100 WBC Auto (Bl d)Ordered By: Mayito Villatoro on 08-25-2024 Eosinophils/100 WBC (Bld) Automated eosinophil % . [facility] Epithelial cells.squamous [# /area] in Urine sediment by Automated countOrdered By: Mayito Villatoro on 08-25-2024 Epithelial cells.squamous Auto (Urine sed) [#/Area] Epithelial cells.squamous [#/area] in Urine sediment by Automated count High 0-2 [facility] Erythrocyte distribution wid th Auto (RBC) [Ratio]Ordered By: Mayito Villatoro on 08-25-2024 Erythrocyte distribution width (RBC) [Ratio] Erythrocyte distribution width [Ratio] by Automated count 11.9-15.3 [facility] Erythrocytes [#/area] in Uri ne sediment by Automated countOrdered By: Mayito Villatoro on 08-25-2024 RBC Auto (Urine sed) [#/Area] Erythrocytes [#/area] in Urine sediment by Automated count 0-4 [facility] Ethanol [Mass/volume] in Ser um or PlasmaOrdered By: Mayito Villatoro on 08-25-2024 Ethanol [Mass/Vol] Ethanol [Mass/volume ] in Serum or Plasma [facility] Comment on above: Test not performed Ethyl Alcohol Profileon 08-12 Ethanol [Mass/Vol] mg/dL Normal [facility] Comment on above: Performed By: #### C BC, CMP, ETOH #### [facility] [address] Percent Ethanol Not performed Normal [facility] Comment on above: Result Comment: PERF ORMED BY: [place] [address] PATHOLOGIST [employer] AMARIS DE LA TORRE M.D. Performed By: #### C BC, CMP, ETOH #### [facility] [address] Globulin Calc (S) [Mass/Vol] Ordered By: Mayito Villatoro on 08-25-2024 Globulin (S) [Mass/Vol] Serum globulin measurement by calculation (mass/volume) [facility] Glucose [Mass/volume] in Ser um or PlasmaOrdered By: Mayito Villatoro on 08-25-2024 Glucose [Mass/Vol] Glucose [Mass/volume ] in Serum or Plasma High 70-100 [facility] Comment on above: ADA recommended refe rence rangeRandom Glucose Reference Range is dependent on time and content of last meal. Glucose of more than 200 mg/dL in a nonstressed, ambulatory subject supports the diagnosis of Diabetes Mellitus. Glucose [Mass/volume] in Uri ne by Test stripOrdered By: Mayito Villatoro on 08-25-2024 Glucose Test strip (U) [Mass/Vol] Glucose [Mass/volume] in Urine by Test strip Normal [facility] Hematocrit Auto (Bld) [Volum e fraction]Ordered By: Mayito Villatoro on 08-25-2024 Hematocrit (Bld) [Volume fraction] Hematocrit [Volume Fraction] of Blood by Automated count 34.0-46.4 [facility] Hemoglobin Test strip Ql (U) Ordered By: Mayito Villatoro on 08-25-2024 Hemoglobin Ql (U) Hemoglobin [Presence ] in Urine by Test strip Negative [facility] Hemoglobin [Mass/volume] in BloodOrdered By: Mayito Villatoro on 08-25-2024 Hemoglobin (Bld) [Mass/Vol] Hemoglobin [Mass/volume] in Blood 11.8-15.4 [facility] Hyaline casts [#/area] in Ur ine sediment by Automated countOrdered By: Mayito Villatoro on 08-25-2024 Hyaline casts Auto (Urine sed) [#/Area] Hyaline casts [#/area] in Urine sediment by Automated count 0-8 [facility] Ketones Test strip Ql (U)Ord ered By: Mayito Villatoro on 08-25-2024 Ketones Ql (U) Ketones [Presence] i n Urine by Test strip Negative [facility] Leukocyte esterase [Presence ] in Urine by Test stripOrdered By: Mayito Villatoro on 08-25-2024 Leukocyte esterase Test strip Ql (U) Leukocyte esterase [Presence] in Urine by Test strip High Negative [facility] Leukocytes [#/area] in Urine sediment by Automated countOrdered By: Mayito Villatoro on 08-25-2024 WBC Auto (Urine sed) [#/Area] Leukocytes [#/area] in Urine sediment by Automated count High 0-4 [facility] Leukocytes [#/volume] correc mike for nucleated erythrocytes in Blood by Automated counOrdered By: Mayito Villatoro on 08-25-2024 WBC corrected for nucl RBC Auto (Bld) [#/Vol] Leukocytes [#/volume] corrected for nucleated erythrocytes in Blood by Automated coun 3.8-11.6 [facility] Lymphocytes Auto (Bld) [#/Vo l]Ordered By: Mayito Villatoro on 08-25-2024 Lymphocytes (Bld) [#/Vol] Lymphocytes [#/volume] in Blood by Automated count 1.00-4.8 [facility] Lymphocytes/100 WBC Auto (Bl d)Ordered By: Mayito Villatoro on 08-25-2024 Lymphocytes/100 WBC (Bld) Lymphocytes/100 leukocytes in Blood by Automated count . [facility] MCH Auto (RBC) [Entitic mass ]Ordered By: Mayito Villatoro on 08-25-2024 MCH (RBC) [Entitic mass] MCH [Entitic mass] by Automated count 24.7-34.3 [facility] MCHC Auto (RBC) [Mass/Vol]Or dered By: Mayito Villatoro on 08-25-2024 MCHC (RBC) [Mass/Vol] MCHC [Mass/volume] by Automated count 32.0-35.0 [facility] MCV Auto (RBC) [Entitic vol] Ordered By: Mayito Villatoro on 08-25-2024 MCV (RBC) [Entitic vol] MCV [Entitic vol ume] by Automated count 80-100 [facility] Monocyte distribution width [Entitic volume] in Blood by AutomatedOrdered By: Mayito Villatoro on 08-25-2024 Monocyte distribution width Auto (Bld) [Entitic vol] Monocyte distribution width [Entitic volume] in Blood by Automated 0.00-20.00 [facility] Monocytes Auto (Bld) [#/Vol] Ordered By: Mayito Villatoro on 08-25-2024 Monocytes (Bld) [#/Vol] Automated blood monocyte count 0.0-0.8 [facility] Monocytes/100 WBC Auto (Bld) Ordered By: Mayito Villatoro on 08-25-2024 Monocytes/100 WBC (Bld) Automated monocyte % . [facility] Mucus [Presence] in Urine by AutomatedOrdered By: Mayito Villatoro on 08-25-2024 Mucus Auto Ql (U) Mucus [Presence] in Urine by Automated [facility] Neutrophils Auto (Bld) [#/Vo l]Ordered By: Mayito Villatoro on 08-25-2024 Neutrophils (Bld) [#/Vol] Neutrophils [#/volume] in Blood by Automated count 1.8-7.7 [facility] Neutrophils/100 WBC Auto (Bl d)Ordered By: Mayito Villatoro on 08-25-2024 Neutrophils/100 WBC (Bld) Automated neutrophil % . [facility] Nitrite Test strip Ql (U)Ord ered By: Mayito Villatoro on 08-25-2024 Nitrite Ql (U) Nitrite [Presence] i n Urine by Test strip Negative [facility] No Panel InformationOrdered By: Mayito Villatoro on 08-25-2024 Estimated GFR (CKD-EPI) > 60.0 mL/Min [facility] Creatinine Clearance (Chem 70.77 [facility] Nucleated erythrocytes [Pres ence] in Blood by Automated countOrdered By: Mayito Villatoro on 08-25-2024 Nucleated RBC Auto Ql (Bld) Nucleated erythrocytes [Presence] in Blood by Automated count 0-0.5 [facility] Opiates [Presence] in Urine by Screen methodOrdered By: Mayito Villatoro on 08-25-2024 Opiates Screen Ql (U) Opiates [Presence] in Urine by Screen method Negative [facility] Phencyclidine Screen Ql (U)O rdered By: Mayito Villatoro on 08-25-2024 Phencyclidine Ql (U) Phencyclidine [Presence] in Urine by Screen method Negative [facility] Platelet mean volume Auto (B ld) [Entitic vol]Ordered By: Mayito Villatoro on 08-25-2024 Platelet mean volume (Bld) [Entitic vol] Platelet mean volume [Entitic volume] in Blood by Automated count 6.3-10.7 [facility] Platelets Auto (Bld) [#/Vol] Ordered By: Mayito Villatoro on 08-25-2024 Platelets (Bld) [#/Vol] Platelets [#/vol ume] in Blood by Automated count 150-450 [facility] Potassium [Moles/volume] in Serum or PlasmaOrdered By: Mayito Villatoro 08-25-2024 Potassium [Moles/Vol] Potassium [Moles/volume] in Serum or Plasma 3.5-5.1 [facility] Protein Test strip (U) [Mass /Vol]Ordered By: Mayito Villatoro 08-25-2024 Protein (U) [Mass/Vol] Protein [Mass/vol ume] in Urine by Test strip Negative [facility] Protein [Mass/volume] in Ser um or PlasmaOrdered By: Mayito Villatoro 08-25-2024 Protein [Mass/Vol] Protein [Mass/volume ] in Serum or Plasma 6.4-8.9 [facility] RBC Auto (Bld) [#/Vol]Ordere d By: Mayito Villatoro 08-25-2024 RBC (Bld) [#/Vol] Erythrocytes [#/volume] in Blood by Automated count 3.60-5.00 [facility] Serum or plasma albumin/glob ulin mass ratioOrdered By: Mayito Villatoro on 08-25-2024 Albumin/Globulin [Mass ratio] Serum or plasma albumin/globulin mass ratio [facility] Serum or plasma anion gap de terminationOrdered By: Mayito Villatoro on 08-25-2024 Anion gap [Moles/Vol] Serum or plasma an ion gap determination 6.0-15.0 [facility] Sodium [Moles/volume] in Ser um or PlasmaOrdered By: Mayito Villatoro on 08-25-2024 Sodium [Moles/Vol] Sodium [Moles/volume ] in Serum or Plasma 136-145 [facility] Specific gravity Test strip (U) [Rel density]Ordered By: Mayito Villatoro on 08-25-2024 Specific gravity (U) [Rel density] Specific gravity of Urine by Test strip 1.001-1.030 [facility] Urea nitrogen [Mass/volume] in Serum or PlasmaOrdered By: Mayito Villatoro on 08-25-2024 Urea nitrogen [Mass/Vol] Urea nitrogen [Mass/volume] in Serum or Plasma 7-25 [facility] Urine Cultureon 08-25-2024 Bacteria identified Cx Nom (U) >100,000 colonies/ml mixed bacterial skin contaminants 2 Days PERFORMED BY: [place] [address] PATHOLOGIST [employer] AMARIS DE LA TORRE M.D. Normal [facility] Comment on above: Performed By: #### C UU, ADDCAESAR, URDS #### [address] Urobilinogen Test strip (U) [Mass/Vol]Ordered By: Mayito Villatoro on 08-25-2024 Urobilinogen (U) [Mass/Vol] Urobilinogen [Mass/volume] in Urine by Test strip Normal [facility] WBC Auto (Bld) [#/Vol]Ordere d By: Mayito Villatoro on 08-25-2024 WBC (Bld) [#/Vol] Leukocytes [#/volume ] in Blood by Automated count 3.8-11.6 [facility] pH Test strip (U)Ordered By: Mayito Villatoro on 08-25-2024 pH (U) pH of Urine by Test strip 5.0-9.0 [facility] Reminderson 07-02-2024 Reminders Reminders From: DOROTHY Santillan APRN, [place] X To: EU - Recalls Lue; Sent: 12/25/2023 10:20:22 EDT Show up: 05/14/2024 10:20:00 EST Subject: Reminder Message Reminder Message 6 mos KUB/FERNY prior to Jun appt 06/25/24 follow up left for patient. duplicate Normal [facility] Reminders Reminders From: Delia Granda To: [...] like to have imaging done at the [facility]. orders faxed to [facility] Normal [facility] C-REACTIVE PROTEINon 025 CRP [Mass/Vol] mg/dL NINF - 0.9 mg/dL [facility] CRP [Mass/Vol]on 06-06-2024 Interpretation and review of laboratory results Normal [facility] ESR Westergren method (Bld) [Velocity]on 06-06-2024 ESR (Bld) [Velocity] 8 mm/h [facility] Interpretation and review of laboratory results Normal [facility] No Panel Informationon 06-06 IMPRESSION: No evidence of inflammatory arthropathy in either hand or foot. Board Worker: LUÍS Transcribe Date/Time: Jun 06 2024 9:43A Dictated by : VINOD DAVILA MD This examination was interpreted and the report reviewed and electronically signed by: VINOD DAVILA MD on Jun 06 2024 9:46AM EST [facility] Radiology Study observation (narrative) [facility] No Panel InformationOrdered By: Ccf Provider on 06-06-2024 [facility] XR Foot - bilateral AP and L [...] erosion in either hand or foot. [facility] Provider, [facility] - 06/06/2024 * * *Final [...] inflammatory arthropathy in either hand or foot. Board Worker: PSCB Transcribe Date/Time: Jun 06 2024 9:43A Dictated by : VINOD DAVILA MD This examination was interpreted and the report reviewed and electronically signed by: VINOD DAVILA MD on Jun 06 2024 9:46AM EST [facility] XR Hand - bilateral PA and L ateral and Obliqueon 06-06-2024 * * *Final Report* * * DATE OF EXAM: El 24 2025 9:02AM VHX 5556 - XR HAND 3V [...] erosion in either hand or foot. [facility] Provider, [facility] - 06/06/2024 * * *Final [...] inflammatory arthropathy in either hand or foot. Board Worker: PSCB Transcribe Date/Time: Jun 06 2024 9:43A Dictated by : VINOD DAVILA MD This examination was interpreted and the report reviewed and electronically signed by: VINOD DAVILA MD on Jun 06 2024 9:46AM [facility] XR Lumbar spine 2 or 3 [...] findings of the lumbar spine. Mckayla Erickson FLORAL ARTIST-ELECTRIC CAR OPERATOR [facility] XR Lumbar spine 2 or 3 Views Ordered By: Jr. Faust on 05-08-2024 [facility] Healthcare Work Phone: XR Lumbar spine 2 or 3 Views on 05-05-2024 Radiology Study observation (narrative) [facility] Provider Letteron 01-29-2024 Provider Letter Provider Letter January 29, 2024 ELI BOYCE [address] [place] [phone] : 1965 Dear Eli, We have been trying to reach you with no success. It is important that you return our call regarding your renal US and KUB upon receiving this letter. Also, at the time of your call, please provide us with your current information. Thank you for your prompt attention to this matter. Sincerely, [facility] [place] [address] [place] [address] opt. 3 Normal [facility] C Urineon 12-27-2023 Bacteria identified Cx Nom (U) Microbiology PROCEDURE: Urine Culture [R1] SOURCE: U CleanCatch BODY SITE: COLLECTED DATE/TIME: 12/25/2023 10:20 EDT RECEIVED DATE/TIME: 12/25/2023 20:40 EDT START DATE/TIME: 12/25/2023 20:40 EDT FREE TEXT SOURCE: Tyrell FLORAL ARTIST, MASTER PLUMBER-C, Ormargaret FLORAL ARTIST, MASTER PLUMBER-C, Elana X Elana X FINAL REPORTS Final Report [] Verified [...] Locations R1: This test was performed at: [facility], [address] [place] [address], [address] , , [facility] Comment on above: Performed By: #### 2 [id number] #### [facility] [address] [place] [address] Ambulatory Visit Summaryon 0 12-25-2023 Ambulatory Visit [...] Team Attending Physician - DOROTHY Santillan APRN, Elana Contreras Primary Care Physician - Phillip Bruner MD [...] MADRID, Aubrie Cho Where: [facility] [address] [phone]- You Need to Complete the Following Urine [...] you for choosing us for your care. [facility] IntraOperative Documentson 0 10-25-2023 IntraOperative Documents [id number]#1.[address] [facility] Postoperative Documentson Postoperative Documents [id number]#1.[address] [facility] Consent for Anesthesiaon Consent for Anesthesia [id number]#1. 00TIFF [facility] Discharge Instructionson Discharge Instructions [id number]#1. 00TIFF [facility] IntraOperative Documentson 0 10-24-2023 IntraOperative Documents [id number]#1. 00TIFF [facility] Main OR Intraoperative Recor don 10-24-2023 Main OR Intraoperative Record IntraOp Document Type FT Summary Primary Physician: Aubrie Nolasco MD Finalized Date/Time: 10/24/23 14:02:43 Pt. Name: ELI BOYCE/Viry: 1965 Female Med Rec #: [id number] Physician: Gaurav MADRID, Aubrie Cho Financial #: [id number] Pt. Type: A Room/Bed: [place] [address] Admit/Disch: 10/23/23 06:54:17 - 10/23/23 12:20:00 Institution: Case Times FT Entry 1 Patient Times In Room 10/23/23 10:13:00 Out Room 10/23/23 10:45:00 Procedure Times Start 10/23/23 10:26:00 Stop 10/23/23 10:39:00 Anesthesia Times Start 10/23/23 10:13:00 Stop 10/23/23 10:45:00 Last Modified By: Teresa CORRAL, Maribeth Kern 10/23/23 10:45:37 General Comments: BULKAMID LOT#: [id number], EXP DATE: 07/11/2025 -Yoselyn ESCAMILLA RN 10/24/23 Chart opened to review and send charges [facility] CSFA Case Attendance FT Entry 1 Entry 2 Entry 3 Case Attendee Deppen KYLIE, Jena Nolasco MD, Aubrie Escamilla RN, Maribeth Kern Role Performed FISHER POT Surgeon - Primary Design Cell Engineer - Primary Time In 10/23/23 10:13:00 10/23/23 10:13:00 10/23/23 [...] Performed Scrub - Primary Scrub - Primary Design Cell Engineer - Relief Time In 10/23/23 10:13:00 10/23/23 10:13:00 10/23/23 10:13:00 Time Out 10/23/23 10:45:00 10/23/23 10:45:00 10/23/23 10:17:00 Procedure CYSTOSCOPY(Bilateral) CYSTOSCOPY(Bilateral) CYSTOSCOPY(Bilateral) Comments Last Modified By: Teresa CORRAL, Maribeth Escamilla RN, Maribeth Escamilla RN, Maribeth Kern 10/23/23 Leydi Kern 10/23/23 Leydi P 10/23/23 10:45:38 10:45:38 10:45:38 [...] Out Gaurav MADRID, Aubrie Cho, Given Participants Jena Gallegos CRNA, Teresa CORRAL, Maribeth Kern, Rosanna Mistry, Garrison MANN, Peace Raya Time Out Complete 10/23/23 10:25:00 Outcomes Met? [...] and tissue Entry 1 Skin Integrity Intact, [place], Warm, and Skin Abnormality No Dry Outcomes Met? Yes Last Modified By: Teresa CORRAL, Maribeth Kern 10/23/23 10:23:41 Post-Care Text: The patient is free from signs and symptoms of injury caused by extraneous objects Patient Positioning FT Pre-Care Text: Identifies physical alterations t (more content not included)... Normal [facility] Pre-Op Checkliston Pre-Op Checklist [id number]#1. 00TIFF [facility] Consent for Procedure/Surger yon 10-23-2023 Consent for Procedure/Surgery [id number]#1.[address] [facility] Consent for Treatmenton 10-12 Consent for Treatment [id number]#1.[address] [facility] Discharge Instructionson Discharge Instructions ELI BOYCE [...] up in 1 month with PVR Where: [facility] Brayan Alan, [address] [address] [phone] Business (1) Medications What How Much When Instructions Next Dose New nitrofurantoin (Macrobid 100 mg Cap) 1 Capsules By Mouth 2 times a day Duration: 5 Days [facility] [place] [phone] Unchanged aspirin (aspirin 81 mg Oral EC [...] Capsules By Mouth Every day Pharmacy Information [facility] Qype [phone]: [address] [place], [place] [phone] Test Results No qualifying data available. Allergies No Known Medication Allergies Education Materials [facility] [place] Post-Operative Instructions for Bulkamid Congratulations on [...] may recommend a warm bath and/or an gvyw-dpn-jprxbsb pain medication to reduce discomfort. ? If [...] a complete list of instructions. ? 2020 [employer]. All rights reserved. This material contains registered trademarks, trade names, and brand names of [employer]. [phone] 04/2021 [facility] Invalid Interpretation Code [facility] Comment on above: Result Comment: Elec tronically Signed By: Pretty CORRAL, Jamila Raya\.brown\Date and Time Signed: 10/23/23 11:44 EDT H&P Updateon 10-23-2023 H&P Update [id number]#1.0 0TIFF Normal [facility] Inpatient Patient Summaryon 10-23-2023 Inpatient Patient Summary [address] [address] [facility] Clinical Discharge Instructions PERSON INFORMATION Name: ELI BOYCE [facility]#:[id number] PHYSICIANS Admitting Physician: Aubrie Nolasco MD Attending Physician: Aubrie Nolasco MD PCP: Zohreh MADRID, Phillip Discharge Diagnosis: Intrinsic sphincter deficiency (ISD) Comment: PATIENT EDUCATION INFORMATION Instructions: Lue - [facility] Post-Op Instructions (CUSTOM) Medication Leaflets: Follow up: With: Address: When: Aubrie Nolasco [address] [place] [address], [place] [phone] Business (1) Comments: Office will call to schedule your follow up in 1 month with PVR MEDICATION LIST New Medications [facility] [id number], [facility] [place], [place] [phone], [phone] nitrofurantoin (Macrobid 100 mg Cap) 1 Capsules [...] Capsules By Mouth every day. Comment: Normal [facility] Main OR PACU I Recordon 10-12 Main OR PACU I Record PACU Phase I Docum ent Type FT Summary Primary Physician: Aubrie Nolasco MD Finalized Date/Time: 10/23/23 11:27:08 Pt. Name: ELI BOYCE /Sex: 1965 Female Med Rec #: [id number] Physician: Aubrie Nolasco MD Financial #: [id number] Pt. Type: A Room/Bed: [facility]/ Admit/Disch: 10/23/23 06:54:17 - Institution: Case Times [...] By: Mariah Robert RN 10/23/23 11:27 Normal [facility] Main OR PACU II Recordon Main OR PACU II Record PACU Phase II Doc ument Type FT Summary Primary Physician: Aubrie Nolasco MD Finalized Date/Time: 10/23/23 12:48:08 Pt. Name: ELI BOYCE./Sex: 1965 Female Med Rec #: [id number] Physician: Aubrie Nolasco MD Financial #: [id number] Pt. Type: A Room/Bed: [place] [address] Admit/Disch: 10/23/23 06:54:17 - 10/23/23 12:20:00 Institution: [...] Signed By: Jamila Olsen RN 10/23/23 12:48 Normal [facility] Main OR Preoperative Recordo n 10-23-2023 Main OR Preoperative Record PreOp Document Type FT Summary Primary Physician: Aubrie Nolasco MD Finalized Date/Time: 10/23/23 10:46:20 Pt. Name: ELI BOYCE Cordell Ricks/Sex: 1965 Female Med Rec #: [id number] Physician: Aubrie Nolasco MD Financial #: [id number] Pt. Type: A Room/Bed: [place] [address] Admit/Disch: 10/23/23 06:54:17 - Institution: Case Times [...] By: Maribeth Escamilla RN 10/23/23 10:46 Normal [facility] Monitor Recordon 10-23-2023 Monitor Record [id number]#1. 00TIFF Normal [facility] Monitor Record [id number]#1. 00TIFF Normal [facility] Operative Reporton Operative Report Patient: CHRIS [...] and Plan Diagnosis Intrinsic sphincter deficiency (ISD) ([id number] N36.42, Discharge, Medical). Diagnosis Intrinsic sphincter deficiency (ISD) ([id number]-UW N36.42, Discharge, Medical). Normal [facility] Comment on above: Result Comment: Elec tronically Signed By: Gaurav MADRID, Aubrie Clayton.brown\Date and Time Signed: 10/23/23 11:18 EDT Outpatient Surgery Discharge Instructionon 10-23-2023 Outpatient Surgery Discharge Instruction [address] [address] Patient Discharge Instructions PERSON INFORMATION Name: ELI BOYCE Date of : 1965 Current Date: 10/23/2023 [...] THE NEAREST EMERGENCY ROOM OR CALL 911 I, ELI BOYCE, have received the attached patient education materials/instructions and have verbalized understanding: May we do a follow up call? Yes No I was present when discharge instructions were given Patient Signature Date Clinican/Nurse Signature ___ Date Follow up: With: Address: When: Aubrie Nolasco [address] [place] [phone] Business (1) Comments: Office will call to schedule your follow up in [address] [facility] Pharmacy Information: You may receive a survey from [employer] asking you to rate your care experience. Your feedback is important and will help us understand what we do well and how we can improve the quality of care we provide to you, your loved ones and our community. It?s an honor to serve you. Thank you for choosing [facility] HERE ARE THE MEDICATION CHANGES THAT OCCURRED DURING YOUR HOSPITAL STAY New Medications [facility] [id number], [address] [place], [place] [phone], [phone] nitrofurantoin (Macrobid 100 mg Cap) 1 Capsules [...] day. PATIENT EDUCATION INFORMATION Instructions: [facility] [place] [place] Post-Operative Instructions for Bulkamid Congratulations on [...] may recommend a warm bath and/or an liuj-goe-yuhhikb pain medication to reduce discomfort. ? If [...] (more content not included)... Invalid Interpretation Code [facility] Patient Education - Texton 0 10-23-2023 Patient Education - Text [facility] [place] [place] Post-Operative Instructions for Bulkamid Congratulations on [...] may recommend a warm bath and/or an jhcy-djn-rxtadcc pain medication to reduce discomfort. ? If [...] a complete list of instructions. ? 2020 [employer]. All rights reserved. This material contains registered trademarks, trade names, and brand names of [employer]. [phone] 04/2021 [facility] Invalid Interpretation Code [facility] Progress Note-Physicianon Progress Note-Physician Patient: ELI BOYCE Age: 58 years Sex: Female : 1965 Associated Diagnoses: None Author: Kade MADRID, Pedrito Raya. Postoperative Information Postoperative disposition: Postoperative disposition: To PACU. Optimetrix number: Optimetrix number [id number]. Anesthetic utilized: General. Health Status Allergies: Allergic [...] meets criteria ( To home ). 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 Mixed incontinence / SNOMED CT 96775465 / Confirmed Neuropathy / SNOMED CT 1062156885 / Confirmed OAB (overactive bladder) / SNOMED CT 7070484548 / Confirmed Other urethral stricture, female / SNOMED CT 612295793 / Confirmed Proteinuria / SNOMED CT 00165040 / Confirmed Rheumatoid arthritis / SNOMED CT 152986969 / Confirmed Resolved: BNC (bladder neck contracture) / SNOMED CT 7345261807 Resolved: BPH with urinary obstruction / SNOMED CT 8054545085 Resolved: Incomplete bladder emptying / SNOMED CT 078823430 Resolved: Microscopic hematuria / SNOMED CT 967531455 Resolved: Urinary incontinence / SNOMED CT 7081456307 Canceled: Nocturia / SNOMED CT 502442932 Canceled: Personal history of kidney stones / SNOMED CT 3094772208 Canceled: Urethra cancer / 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 BNC (bladder neck contracture) (8330787971): Resolved. Microscopic hematuria (801850627): Resolved. Incomplete bladder emptying (490933501): Resolved. Urinary incontinence (6650080760): Resolved. Family History: Hypertension Mother Arthritis Mother Procedure history: Rt Laser Litho (441548711) on 10/25/2022 at 57 Years. Cystoscopic insertion of ureteric stent (246402901) on 06/21/2022 at 57 Years. Ureteroscopy (0378942569) on 06/21/2022 at 57 Years. Ankle (more content not included)... Normal [facility] Comment on above: Result Comment: Elec tronically Signed By: Kade MADRID, Pedrito Syed\.br\Date and Time Signed: 10/23/23 08:04 EDT BMPon 10-19-2023 Anion gap [Moles/Vol] 11 mmol/L Normal 6-16 [facility] Comment on above: Performed By: #### 2 [id number] #### [facility] [address] [place] [address] Calcium [Mass/Vol] 8.8 mg/dL Low 8.9-11.1 [facility] Comment on above: Performed By: #### 2 [id number] #### [facility] [address] [place] [address] Chloride [Moles/Vol] 104 mmol/L Normal 101-111 [facility] Comment on above: Performed By: #### 2 [id number] #### [facility] [address] [place] [address] CO2 [Moles/Vol] 26 mmol/L Normal 21-31 [facility] Comment on above: Performed By: #### 2 502015 #### [facility] [address] [place] [address] Creatinine [Mass/Vol] 0.8 mg/dL Normal 0.5-1.3 [facility] Comment on above: Performed By: #### 2 470062 #### [facility] [address] [place] [address] Glucose [Mass/Vol] 100 mg/dL Normal 55-199 [facility] Comment on above: Performed By: #### 2 279521 #### [facility] [address] [place] [address] Potassium [Moles/Vol] 3.9 mmol/L Normal 3.5-5.3 [facility] Comment on above: Performed By: #### 2 041254 #### [facility] [address] [place] [address] Sodium [Moles/Vol] 137 mmol/L Normal 135-145 [facility] Comment on above: Performed By: #### 2 261706 #### [facility] [address] [place] [address] Urea nitrogen [Mass/Vol] 15 mg/dL Normal 5-21 [facility] Comment on above: Performed By: #### 2 580274 #### [facility] [address] [place] [address] Urea nitrogen/Creatinine [Mass ratio] 19 No Units Normal 10-20 [facility] Comment on above: Performed By: #### 2 561625 #### [facility] [address] [place] [address] CBC w/ Auto Diffon 4 Basophils/100 WBC (Bld) 0.7 % Normal 0.0-2.0 [facility] Comment on above: Performed By: #### 2 [id number] #### [facility] [address] [place] [address] Basophils/Leukocytes Auto (Bld) [Pure # fraction] 0.0 E9/L Normal 0.0-0.2 [facility] Comment on above: Performed By: #### 2 [id number] #### [facility] [address] [place] [address] Eosinophils (Bld) [#/Vol] 0.1 E9/L Normal 0.0-0.5 [facility] Comment on above: Performed By: #### 2 [id number] #### [facility] [address] [place] [address] Eosinophils/100 WBC (Bld) 2.2 % Normal 0.0-8.0 [facility] Comment on above: Performed By: #### 2 [id number] #### [facility] [address] [place] [address] Erythrocyte distribution width (RBC) [Ratio] 12.6 % Normal 10.9-14.2 [facility] Comment on above: Performed By: #### 2 [id number] #### [facility] [address] [place] [address] Hematocrit (Bld) [Volume fraction] 39.9 % Normal 34.0-46.0 [facility] Comment on above: Performed By: #### 2 [id number] #### [facility] [address] [place] [address] Hemoglobin (Bld) [Mass/Vol] 13.2 g/dL Normal 12.0-16.0 [facility] Comment on above: Performed By: #### 2 [id number] #### [facility] [address] [place] [address] Lymphocytes (Bld) [#/Vol] 1.4 E9/L Normal 1.0-4.0 [facility] Comment on above: Performed By: #### 2 [id number] #### [facility] [address] [place] [address] Lymphocytes/100 WBC (Bld) 24.5 % Normal 14.0-50.0 [facility] Comment on above: Performed By: #### 2 [id number] #### [facility] [address] [place] [address] MCH (RBC) [Entitic mass] 30.2 pg Normal 27.0-34.0 [facility] Comment on above: Performed By: #### 2 [id number] #### [facility] [address] [place] [address] MCHC (RBC) [Mass/Vol] 33.1 g/dL Normal 31.4-36.0 [facility] Comment on above: Performed By: #### 2 [id number] #### [facility] [address] [place] [address] MCV (RBC) [Entitic vol] 91.2 fL Normal 80.0-100.0 [facility] Comment on above: Performed By: #### 2 [id number] #### [facility] [address] [place] [address] Monocytes (Bld) [#/Vol] 0.7 E9/L Normal 0.2-1.0 [facility] Comment on above: Performed By: #### 2 [id number] #### [facility] [address] [place] [address] Neutrophils (Bld) [#/Vol] 3.6 E9/L Normal 2.0-7.5 [facility] Comment on above: Performed By: #### 2 [id number] #### [facility] [address] [place] [address] Neutrophils/100 WBC (Bld) 61.4 % Normal 36.0-75.0 [facility] Comment on above: Performed By: #### 2 [id number] #### [facility] [address] [place] [address] Platelet mean volume (Bld) [Entitic vol] 8.9 fL Normal 6.4-10.8 [facility] Comment on above: Performed By: #### 2 [id number] #### [facility] [address] [place] [address] Platelets (Bld) [#/Vol] 229.0 E9/L Normal 150.0-500.0 [facility] Comment on above: Performed By: #### 2 [id number] #### [facility] [address] [place] [address] RBC (Bld) [#/Vol] 4.4 E12/L Normal 4.3-5.9 [facility] Comment on above: Performed By: #### 2 [id number] #### [facility] [address] [place] [address] WBC corrected for nucl RBC Auto (Bld) [#/Vol] 5.8 E9/L Normal 4.0-11.0 [facility] Comment on above: Performed By: #### 2 [id number] #### [facility] [address] [place] [address] CHEMISTRYOrdered By: SYSTEM SYSTEM on 10-19-2023 Anion gap [Moles/Vol] 11 mmol/L Normal 6 - 16 mEq/L Remisol Chem Calcium [Mass/Vol] 8.8 mg/dL Low 8.9 - 11. 1 mg/dL [facility] Chloride [Moles/Vol] 104 mmol/L Normal 101 - 1 11 mmol/L [facility] Chem CO2 [Moles/Vol] 26 mmol/L Normal 21 - 31 mmol/L [facility] Creatinine [Mass/Vol] 0.8 mg/dL Normal 0.5 - 1.3 mg/dL [facility] Chem eGFR 84 mL/min/1.73 m2 Normal >=59mL/min / 1.73 m2 [facility] Chem Glucose [Mass/Vol] 100 mg/dL [...] 29.3 s Normal 25.1 - 36.5 second(s) [facility] Auto Coag Comment on above: Interpretive Data: [...] the same coagulation reagent and instrumentation as [facility]. Currently there are no coagulation studies available worldwide for children to 14 days, and no normal ranges. Heparin therapeutic range (represented by Anti-Factor Xa activity of 0.2 - 0.4 U/mL) corresponds to PTT of 56.6 - 109.0 sec. INR Coag (PPP) [Relative time] 0.85 {INR} Invalid Interpretation Code [facility] Auto Coag Comment on above: Interpretive Data: I NR results are specifically intended to assess patients stabilized on long-term Anticoagulation therapy suggested INR s Less Intensive Anticoagulation 2.0 3.0 Conventional Range 3.0 4.5 PT Coag (PPP) [Time] 9.5 s Normal 9.4 - 1 2.5 second(s) [facility] Auto Coag Comment on above: Interpretive Data: [...] the same coagulation reagent and instrumentation as [facility]. Currently there are no coagulation studies available worldwide for children to 14 days, and no normal ranges. Consent for Treatmenton Consent for Treatment [id number]#1.0 0TIFF Normal [facility] HEMATOLOGYOrdered By: SYSTEM SYSTEM on 10-19-2023 [...] Heme Platelets (Bld) [#/Vol] 229.0 E9/L Normal 150. 0 - 500.0 E9/L Remisol Heme RBC (Bld) [#/Vol] 4.4 E12/L Normal 4.3 - 5.9 E12/L Remisol Heme WBC corrected for nucl RBC Auto (Bld) [#/Vol] 5.8 E9/L Normal 4.0 - 11.0 E9/L Remisol Heme Insurance Correspondenceon 0 10-19-2023 Insurance Correspondence [id number]#1.0 0TIFF Normal [facility] PT & PTTon 10-19-2023 aPTT Coag (PPP) [Time] 29.3 second(s) Normal 25.1-36.5 [facility] Comment on above: Result Comment: Para [...] the same coagulation reagent and instrumentation as [facility]. Currently there are no coagulation studies available worldwide for children to 14 days, and no normal ranges. Heparin therapeutic range (represented by Anti-Factor Xa activity of 0.2 - 0.4 U/mL) corresponds to PTT of 56.6 - 109.0 sec. Performed By: #### 1 [id number] #### [facility] [address] [place] [address] INR Coag (PPP) [Relative time] 0.85 {INR} Invalid Interpretation Code [facility] Comment on above: Result Comment: INR results are specifically intended to assess patients stabilized on long-term Anticoagulation therapy suggested INR?s ?Less Intensive Anticoagulation? 2.0 ? 3.0 Conventional Range 3.0 ? 4.5 Performed By: #### 1 [id number] #### [facility] [address] [place] [address] PT Coag (PPP) [Time] 9.5 second(s) Normal 9.4-12.5 [facility] Comment on above: Result Comment: 15 d [...] the same coagulation reagent and instrumentation as [facility]. Currently there are no coagulation studies available worldwide for children to 14 days, and no normal ranges. Performed By: #### 1 [id number] #### [facility] [address] [place] [address] UA with Cult Rflxon 10-19-19 24 Bilirubin Ql (U) Negative Normal Negative [facility] Comment on above: Performed By: #### 4 [id number] #### [facility] [address] [place] [address] Clarity (U) Clear Normal Clear [facility] Comment on above: Performed By: #### 4 [id number] #### [facility] [address] [place] [address] Color (U) Light-Yellow Normal Yellow [facility] Comment on above: Result Comment: Micr oscopic readings are only performed on those samples that meet specific criteria set forth by [facility]. Performed By: #### 4 [id number] #### [facility] [address] [place] [address] Glucose Ql (U) Negative Normal Negative [facility] Comment on above: Performed By: #### 4 [id number] #### [facility] [address] [place] [address] Hemoglobin Auto test strip (U) [Mass/Vol] Trace Abnormal Negative [facility] Comment on above: Performed By: #### 4 [id number] #### [facility] [address] [place] [address] Ketones Auto test strip Ql (U) Negative Normal Negative [facility] Comment on above: Performed By: #### 4 [id number] #### [facility] [address] [place] [address] Leukocyte esterase Auto test strip Ql (U) Negative Normal Negative [facility] Comment on above: Performed By: #### 4 [id number] #### [facility] [address] [place] [address] Nitrite Auto test strip Ql (U) Negative Normal Negative [facility] Comment on above: Performed By: #### 4 [id number] #### [facility] [address] [place] [address] pH (U) 6.0 [pH] Invalid Interpretation Code 5.0-9.0 [facility] Comment on above: Performed By: #### 4 [id number] #### [facility] [address] [place] [address] Protein Ql (U) Negative Normal Negative [facility] Comment on above: Performed By: #### 4 [id number] #### [facility] [address] [place] [address] Specific gravity (U) [Rel density] 1.017 Invalid Interpretation Code 1.005-1.030 [facility] Comment on above: Performed By: #### 4 [id number] #### [facility] [address] [place] [address] Urobilinogen (U) [Mass/Vol] Negative Normal Negative [facility] Comment on above: Performed By: #### 4 [id number] #### [facility] [address] [place] [address] Type of Urine collection method Clean Catch Normal [facility] Comment on above: Performed By: #### 4 [id number] #### [facility] [address] [place] [address] URINALYSISOrdered By: SYSTEM SYSTEM on 10-19-2023 Bilirubin Ql (U) Negative Normal Negativemg/ dL [facility] UA Auto SS Clarity (U) Clear (10/19/23 9:53 AM) Normal Clear [facility] UA Auto SS Color (U) Light-Yellow 1 (10/19/23 9:53 AM) Normal Yellow [facility] UA Auto SS Comment on above: Interpretive Data: M icroscopic readings are only performed on those samples that meet specific criteria set forth by [facility]. Glucose Ql (U) Negative Normal Negativemg/ dL [facility] UA Auto SS Hemoglobin Auto test strip (U) [Mass/Vol] Trace mg/dL Invalid Interpretation Code Negativemg/ dL FT UA Auto SS Ketones Auto test strip Ql (U) Negative Normal Negativemg/ dL FT UA Auto SS Leukocyte esterase Auto test strip Ql (U) Negative Normal NegativeLeu /uL FT UA Auto SS Nitrite Auto test strip Ql (U) Negative Normal Negativemg/ dL FT UA Auto SS pH (U) 6.0 *NA* (10/19/23 9:53 AM) Invalid Interpretation Code 5.0 - 9.0 FT UA Auto SS Protein Ql (U) Negative Normal Negativemg/ dL [facility] UA Auto SS Specific gravity (U) [Rel density] 1.017 *NA* (10/19/23 9:53 AM) Invalid Interpretation Code 1.005 - 1.030 FT UA Auto SS Urobilinogen (U) [Mass/Vol] Negative Normal Negativemg/ dL [facility] UA Auto SS URINALYSISOrdered By: Gladys Damon on 10-19-2023 UA Spec Desc Clean Catch (10/19/23 9:53 AM) Normal [facility] UA Auto SS XR Chest 2 Viewson [...] MATTHEW Technologist: NOEL Technical Comments Radiation Dose: kathleen Small in mGy = na DAP = na Normal [facility] eGFRon 10-19-2023 eGFR 84 mL/min/1.73 m2 Normal >=59 [facility] Comment on above: Order Comment: Order added by Discern Expert. Performed By: #### 1 [id number] #### [facility] [address] [place] [address] Consent for Procedure/Surger yon 10-11-2023 Consent for Procedure/Surgery [id number]#1.00 TIFF Normal [facility] C Urineon 09-07-2023 Bacteria identified Cx Nom (U) Microbiology PROCEDURE: Urine Culture [R1] SOURCE: U CleanCatch BODY SITE: COLLECTED DATE/TIME: 09/05/2023 11:58 EDT RECEIVED DATE/TIME: 09/05/2023 17:47 EDT START DATE/TIME: 09/05/2023 17:47 EDT FREE TEXT SOURCE: TRE KENDALL, KAILASH TOLEDO PA-C, KAILASH Harry FINAL REPORTS Final Report [] Verified Date/Time: 09/07/2023 10:20 EDT 3,000 cfu/ml Mixed skin contaminants Performing Locations R1: This test was performed at: [facility], [address] [place] [address], [id number] , [place], Normal [facility] Comment on above: Performed By: #### 2 [id number] #### [facility] [address] [place] [address] ED Note-Physicianon 09-06-19 24 ED Note-Physician [id number]#1. 00TIFF [facility] RAD - CT Reporton 09-06-[address] RAD - CT Report [id number]#1. 00TIFF [facility] Screenson 09-06-2023 Screens [id number]#1.[address] [facility] Patient Educationon 09-05-19 Patient Education Urology [...] have the catheter removed. Medicines ? Take guia-njq-qbzbdjx and prescription medicines only as told by [...] provider. Document Revised: 12/16/2020 Document Reviewed: 12/03/2020 [employer] Patient Education ? 2022 [employer] Injection Treatments for Urinary Incontinence Urinary [...] including vitamins, herbs, eye drops, creams, and qble-ieh-zuxgwzc medicines. ? Any problems you or family members have had with anesthetic medicines. ? Any blood disorders you have. ? An (more content not included)... Normal [facility] Urology Office/Clinic Noteon 09-05-2023 Urology Office/Clinic Note Chief Complaint 3 month F/U with FERNY HPI Staff Pt is here for a 3 month F/U with FERNY done @ [facility] 06/06/23 NEG C&S done 06/05/23 Previous DX;kidney stones, OAB, urethral stricture, microscopic hematuria, incompletely emptying bladder, dysuria B&BSQ 18 Continue taking Estradiol- Still taking with no problems [facility] for flank pain on 07/29/2023 PVR [...] specific results or experiences. -Schedule Bulkamid Ordered: [id number] Measure Post Void residual urine and/or bladder capacity by US- non-imaging Urine Culture Urnls Dip Stick Auto w/o Microscopy POC 23597 2. Dysuria (R30.0: Dysuria) UCx 06/05/23 - [...] treated. Will call pt with results. Ordered: [id number] Measure Post Void residual urine and/or bladder [...] Botox in the future See #2. Ordered: [id number] Measure Post Void residual urine and/or bladder capacity by US- non-imaging Urine Culture Urnls Dip Stick Auto w/o Microscopy POC 68037 4. Kidney stone (N20.0: Calculus of kidney) [...] left n (more content not included)... Normal [facility] Comment on above: Result Comment: Elec tronically Signed By: KAILASH TOLEDO PA-C\.br\Date and Time Signed: 09/05/23 12:24 EDT\.br\Electronically Co-Signed By: Yenny Garcias\.br\Date and Time Co-Signed: 09/05/23 12:01 EDT SHANTA by IFAon 07-25-2022 Antinuclear Antibodies, IFA Positive Abnormal [facility] Comment on above: Result Comment: Nega tive <1:80 Borderline 1:80 Positive >1:80 Performed By: #### C ALCULI #### [facility] [address] [place] [address] Dr. Michael Murillo Centriole Pattern Normal [facility] Comment on above: Performed By: #### C ALCULI #### [facility] [address] [address] [address] Michael Murillo Centromere Pattern Normal [facility] Comment on above: Performed By: #### C ALCULI #### [facility] [address] [address] [address] Michael Murillo Homogeneous Pattern 1:80 Normal [facility] [place] [facility] Comment on above: Result Comment: ICAP nomenclature: AC-1 Performed By: #### C ALCULI #### [facility] [address] [address] [address] Michael Murillo Midbody Pattern Normal [facility] Comment on above: Performed By: #### C ALCULI #### [facility] [address] [address] [address] Michael Murillo Note: Comment Normal [facility] Comment on above: Result Comment: For [...] titers Nucleosomes, Histones Drug-induced SLE Speckled Sm, CHANGE MANAGEMENT CONSULTANT, SCL-70, SLE,MCTD,PSS (diffuse form), SS-A/SS-B Sjogrens Nucleolar SCL-70, PM-1/SCL High titers Scleroderma, PM/DM Centromere Centromere PSS (limited form) w/Crest syndrome variable Nuclear Dot Sp100,e48-[id number] Primary Biliary Cirrhosis Nuclear GP210, Primary Biliary Cirrhosis Membrane addison A,B,C Performed By: #### C ALCULI #### [facility] [address] [place] [address] Dr. Michael Murillo Nuclear Dot Pattern Normal [facility] [place] [facility] Comment on above: Performed By: #### C ALCULI #### [facility] [address] [place] [address] Dr. Michael Murillo Nuclear Membrane Pattern Normal [facility] Comment on above: Performed By: #### C ALCULI #### [facility] [address] [place] [address] Dr. Michael Murillo Nucleolar Pattern Normal [facility] Comment on above: Performed By: #### C ALCULI #### [facility] [address] [place] [address] Dr. Michael Murillo PCNA Pattern Normal [facility] Comment on above: Performed By: #### C ALCULI #### [facility] [address] [place] [address] Dr. Michael Murillo Speckled Pattern Normal [facility] Comment on above: Performed By: #### C ALCULI #### [facility] [address] [place] [address] Dr. Michael Murillo Spindle Apparatus Pattern Normal [facility] Comment on above: Performed By: #### C ALCULI #### [facility] [address] [place] [address] Dr. Michael Murillo INSULINon 07-22-2022 Insulin 10.8 uIU/mL Normal 2.6-24.9 [facility] Comment on above: Performed By: #### I NSULIN #### [facility] [address] [place] [address] Dr. Michael Murillo CBC AUTO DIFFon 07-21-2022 BASO # 0.1 103/ul Normal 0.0-0.1 [facility] Comment on above: Performed By: #### T 7, TSH, LIPID, CMP #### [facility] [address] [place] [address] Dr. Michael Murillo Basophils/100 WBC (Bld) 0.9 % Normal 0.2-2.0 [facility] Comment on above: Performed By: #### T 7, TSH, LIPID, CMP #### [facility] [address] [place] [address] Dr. Michael Murillo EO # 0.1 103/ul Normal 0.0-0.7 [facility] Comment on above: Performed By: #### T 7, TSH, LIPID, CMP #### [facility] [address] [place] [address] Dr. Michael Murillo Eosinophils/100 WBC (Bld) 2.1 % Normal 0.9-7.0 [facility] Comment on above: Performed By: #### T 7, TSH, LIPID, CMP #### [facility] [address] [place] [address] Dr. Michael Murillo Erythrocyte distribution width (RBC) [Ratio] 12.7 % Normal 11.0-15.0 [facility] Comment on above: Performed By: #### T 7, TSH, LIPID, CMP #### [facility] [address] [place] [address] Dr. Michael Murillo Hematocrit (Bld) [Volume fraction] 39.3 % Normal 36.0-48.0 [facility] Comment on above: Performed By: #### T 7, TSH, LIPID, CMP #### [facility] [address] [place] [address] Dr. Michael Murillo Hemoglobin (Bld) [Mass/Vol] 13.1 g/dL Normal 12.0-16.0 [facility] Comment on above: Performed By: #### T 7, TSH, LIPID, CMP #### [facility] [address] [place] [address] Dr. Michael Murillo IG # 0.02 10e3/ul Normal 0.00-0.03 [facility] Comment on above: Performed By: #### T 7, TSH, LIPID, CMP #### [facility] [address] [place] [address] Dr. Michael Murillo IG % 0.4 % Normal 0.0-0.5 [facility] Comment on above: Performed By: #### T 7, TSH, LIPID, CMP #### [facility] [address] [place] [address] Dr. Michael Murillo LYMPH # 1.5 103/ul Normal 1.2-3.8 [facility] Comment on above: Performed By: #### T 7, TSH, LIPID, CMP #### [facility] [address] [place] [address] Dr. Michael Murillo Lymphocytes/100 WBC (Bld) 25.5 % Normal 20.5-60.0 [facility] Comment on above: Performed By: #### T 7, TSH, LIPID, CMP #### [facility] [address] [place] [address] Dr. Michael Murillo MANUAL DIFF REQ NO Normal [facility] Comment on above: Performed By: #### T 7, TSH, LIPID, CMP #### [facility] [address] [place] [address] Dr. Michael Murillo MCH (RBC) [Entitic mass] 30.1 pg Normal 26.7-34.0 [facility] Comment on above: Performed By: #### T 7, TSH, LIPID, CMP #### [facility] [address] [place] [address] Dr. Michael Murillo MCHC (RBC) [Mass/Vol] 33.3 g/dL Normal 29.9-35.2 [facility] Comment on above: Performed By: #### T 7, TSH, LIPID, CMP #### [facility] [address] [place] [address] Dr. Michael Murillo MCV (RBC) [Entitic vol] 90.3 fL Normal 81.0-99.0 [facility] Comment on above: Performed By: #### T 7, TSH, LIPID, CMP #### [facility] [address] [place] [address] Dr. Michael Murillo MONO # 0.7 103/ul Normal 0.3-0.8 [facility] Comment on above: Performed By: #### T 7, TSH, LIPID, CMP #### [facility] [address] [place] [address] Dr. Michael Murillo Monocytes/100 WBC (Bld) 12.1 % Critically high 1.7-12. 0 [facility] Comment on above: Performed By: #### T 7, TSH, LIPID, CMP #### [facility] [address] [place] [address] Dr. Michael Murillo NEUT # 3.4 103/ul Normal 1.4-6.5 [facility] Comment on above: Performed By: #### T 7, TSH, LIPID, CMP #### [facility] [address] [place] [address] Dr. Michael Murillo Neutrophils/100 WBC (Bld) 59.0 % Normal 43.0-75.0 [facility] Comment on above: Performed By: #### T 7, TSH, LIPID, CMP #### [facility] [address] [place] [address] Dr. Michael Murillo Platelet mean volume (Bld) [Entitic vol] 9.5 fL Normal 9.5-13.5 [facility] Comment on above: Performed By: #### T 7, TSH, LIPID, CMP #### [facility] [address] [place] [address] Dr. Michael Murillo PLT 253 103/ul Normal 150-450 [facility] Comment on above: Performed By: #### T 7, TSH, LIPID, CMP #### [facility] [address] [place] [address] Dr. Michael Murillo RBC 4.35 106/ul Normal 4.20-5.40 [facility] Comment on above: Performed By: #### T 7, TSH, LIPID, CMP #### [facility] [address] [place] [address] Dr. Michael Murillo WBC 5.7 103/ul Normal 4.0-11.0 [facility] Comment on above: Performed By: #### T 7, TSH, LIPID, CMP #### [facility] [address] [place] [address] Dr. Michael Murillo FREE THYROXINE INDEX T7on FTI 2.45 Normal 1.30-4.50 [facility] Comment on above: Performed By: #### T 7, TSH, LIPID, CMP #### [facility] [address] [address] [address] Michael Murillo T3U 34.0 % Normal 30.0-39.0 [facility] Comment on above: Performed By: #### T 7, TSH, LIPID, CMP #### [facility] [address] [address] [address] Michael Murillo T4 [Mass/Vol] 7.20 ug/dL Normal 4.80-13.90 [facility] [place] [facility] Comment on above: Performed By: #### T 7, TSH, LIPID, CMP #### [facility] [address] [address] [address] Michael Murillo GLYCOHEMOGLOBIN A1Con 2022 ADA RECOMMENDATION SEE BELOW Normal [facility] Comment on above: Result Comment: ADA RECOMMENDED LIMIT 4.0 - 6.0 ADA THERAPEUTIC TARGET < 7.0 ACTION SUGGESTED > 7.0 Performed By: #### C ALCULI #### [facility] [address] [address] [address] Michael Murillo Glucose [Mass/Vol] 123 mg/dL Normal [facility] Comment on above: Performed By: #### C ALCULI #### [facility] [address] [address] [address] Michael Murillo HbA1c (Bld) [Mass fraction] 5.9 % Normal 4.5-6.2 [facility] Comment on above: Performed By: #### C ALCULI #### [facility] [address] [address] [address] Michael Murillo IRONon 07-21-2022 Iron [Mass/Vol] 110.0 ug/dL Normal 50.0-170.0 [facility] Comment on above: Performed By: #### C ALCULI #### [facility] [address] [address] [address] Michael Murillo LIPID PROFILEon 07-21-2022 CHOL-HDL RATIO NORM SEE BELOW Normal [facility] [place] [facility] Comment on above: Result Comment: 3.3 - 4.4 LOW RISK 4.4 - 7.1 AVERAGE RISK 7.1 - 11.0 MODERATE RISK >11.0 HIGH RISK Performed By: #### T 7, TSH, LIPID, CMP #### [facility] [address] [address] [address] Michael Murillo Cholesterol [Mass/Vol] 257 mg/dL Critically high <=200 [facility] Comment on above: Performed By: #### T 7, TSH, LIPID, CMP #### [facility] [address] [address] [address] Michael Murillo Cholesterol in HDL [Mass/Vol] 89 mg/dL Critically high 40-60 [facility] Comment on above: Performed By: #### T 7, TSH, LIPID, CMP #### [facility] [address] [place] [address] Dr. Michael Murillo Cholesterol in LDL [Mass/Vol] 156.4 mg/dL Normal [facility] Comment on above: Performed By: #### T 7, TSH, LIPID, CMP #### [facility] [address] [address] [address] Michael Murillo Cholesterol.total/Clair sterol in HDL [Mass ratio] 2.9 {ratio} Normal [facility] Comment on above: Performed By: #### T 7, TSH, LIPID, CMP #### [facility] [address] [place] [address] Dr. Michael Murillo HDL NORMAL > or = 60 mg/dl - LO W CARDIOVASCULAR RISK <40 mg/dl - HIGH CARDIOVASCULAR RISK Normal [facility] Comment on above: Performed By: #### T 7, TSH, LIPID, CMP #### [facility] [address] [place] [address] Dr. Michael Murillo LDL CALC NORMAL SEE BELOW Normal [facility] Comment on above: Result Comment: <100 mg/dl OPTIMAL 100 - 129 mg/dl NEAR OR ABOVE OPTIMAL 130 - 159 mg/dl BORDERLINE HIGH 160 - 189 mg/dl HIGH >190 mg/dl VERY HIGH Performed By: #### T 7, TSH, LIPID, CMP #### [facility] [address] [address] [address] Michael Murillo Triglyceride [Mass/Vol] 58 mg/dL Normal <=150 [facility] Comment on above: Performed By: #### T 7, TSH, LIPID, CMP #### [facility] [address] [address] [address] Michael Murillo VLDL CALC 11.6 mg/dL Normal [facility] Comment on above: Performed By: #### T 7, TSH, LIPID, CMP #### [facility] [address] [address] [address] Michael Murillo PROF 14(COMP METB)on 023 Albumin [Mass/Vol] 3.8 g/dL Normal 3.4-5.0 [facility] Comment on above: Performed By: #### T 7, TSH, LIPID, CMP #### [facility] [address] [address] [address] Michael Murillo Albumin/Globulin [Mass ratio] 1.2 {ratio} Normal [facility] Comment on above: Performed By: #### T 7, TSH, LIPID, CMP #### [facility] [address] [address] [address] Michael Murillo ALP [Catalytic activity/Vol] 103 U/L Normal 46-116 [facility] Comment on above: Performed By: #### T 7, TSH, LIPID, CMP #### [facility] [address] [address] [address] Michael Murillo ALT [Catalytic activity/Vol] 38 U/L Normal 14-59 [facility] Comment on above: Performed By: #### T 7, TSH, LIPID, CMP #### [facility] [address] [address] [address] Michael Murillo Anion gap [Moles/Vol] 10.1 mmol/L Normal [facility] Comment on above: Performed By: #### T 7, TSH, LIPID, CMP #### [facility] [address] [address] [address] Michael Murillo AST [Catalytic activity/Vol] 27 U/L Normal 15-37 [facility] Comment on above: Performed By: #### T 7, TSH, LIPID, CMP #### [facility] [address] [place] [address] Dr. Michael Murillo Bilirubin [Mass/Vol] 0.4 mg/dL Normal 0.2-1.0 [facility] Comment on above: Performed By: #### T 7, TSH, LIPID, CMP #### [facility] [address] [place] [address] Dr. Michael Murillo Calcium [Mass/Vol] 8.9 mg/dL Normal 8.5-10.1 [facility] Comment on above: Performed By: #### T 7, TSH, LIPID, CMP #### [facility] [address] [place] [address] Dr. Michael Murillo Chloride [Moles/Vol] 107 mmol/L Normal 98-107 [facility] Comment on above: Performed By: #### T 7, TSH, LIPID, CMP #### [facility] [address] [place] [address] Dr. Michael Murillo CO2 [Moles/Vol] 29.8 mmol/L Normal 21.0-32.0 [facility] Comment on above: Performed By: #### T 7, TSH, LIPID, CMP #### [facility] [address] [place] [address] Dr. Michael Murillo Creatinine [Mass/Vol] 0.86 mg/dL Normal 0.55-1.02 [facility] Comment on above: Performed By: #### T 7, TSH, LIPID, CMP #### [facility] [address] [place] [address] Dr. Michael Murillo EGFR-AF SAUDI ARABIAN >60 Normal >=60 [facility] Comment on above: Performed By: #### T 7, TSH, LIPID, CMP #### [facility] [address] [place] [address] Dr. Michael Murillo EGFR-NON AF SAUDI ARABIAN >60 Normal >=60 [facility] Comment on above: Performed By: #### T 7, TSH, LIPID, CMP #### [facility] [address] [address] [address] Michael Murillo Globulin (S) [Mass/Vol] 3.2 g/dL Normal T [facility] Comment on above: Performed By: #### T 7, TSH, LIPID, CMP #### [facility] [address] [place] [address] Dr. Michael Murillo Glucose [Mass/Vol] 96 mg/dL Normal 74-106 [facility] Comment on above: Performed By: #### T 7, TSH, LIPID, CMP #### [facility] [address] [place] [address] Dr. Michael Murillo Potassium [Moles/Vol] 3.9 mmol/L Normal 3.5-5.1 [facility] Comment on above: Performed By: #### T 7, TSH, LIPID, CMP #### [facility] [address] [place] [address] Dr. Michael Murillo Protein [Mass/Vol] 7.0 g/dL Normal 6.4-8.2 [facility] Comment on above: Performed By: #### T 7, TSH, LIPID, CMP #### [facility] [address] [place] [address] Dr. Michael Murillo Sodium [Moles/Vol] 143 mmol/L Normal 136-145 [facility] Comment on above: Performed By: #### T 7, TSH, LIPID, CMP #### [facility] [address] [place] [address] Dr. Michael Murillo Urea nitrogen [Mass/Vol] 17.0 mg/dL Normal 7.0-18.0 [facility] Comment on above: Performed By: #### T 7, TSH, LIPID, CMP #### [facility] [address] [place] [address] Dr. Michael Murillo Urea nitrogen/Creatinine [Mass ratio] 19.8 mg/mg Normal [facility] Comment on above: Performed By: #### T 7, TSH, LIPID, CMP #### [facility] [address] [place] [address] Dr. Michael Murillo TSHon 07-21-2022 TSH 2.426 uIU/mL Normal 0.358-3.740 [facility] Comment on above: Performed By: #### T 7, TSH, LIPID, CMP #### [facility] [address] [place], [place] [address] Dr. Michael Murillo VITAMIN D 25 OHon 07-21-2022 VIT D 25-OH 62.1 ng/mL Normal [facility] Comment on above: Performed By: #### C ALCULI #### [facility] [address] [place], [place] [address] Dr. Michael Murillo VIT D RANGES SEE BELOW Normal [facility] Comment on above: Result Comment: <20 ng/mL Vit D deficient 20 - <30 ng/mL Vit D insufficient 30 - 100 ng/mL Vit D sufficient >100 ng/mL Potential Toxicity Performed By: #### C ALCULI #### [facility] [address] [place], [place] [address] Dr. Michael Murillo MRI FOOT LT WO [...] NADEGE GANNON Date: 2022-07-20 16:22 Normal [facility] NM BONE IMAGE 3 PHASEon - NM BONE IMAGE 3 PHASE EXAMINATION: NM [...] by: BENI ORTIZ Date: 2022-07-10 13:57 Normal [facility] CALCULI, URINARYon 3 2,8 Dihydroxyadenine Normal [facility] Comment on above: Performed By: #### C ALCULI #### [facility] [address] [place] [address] Dr. Michael Murillo Ammonium Acid Urate Normal [facility] [place] [facility] Comment on above: Performed By: #### C ALCULI #### [facility] [address] [address] [address] Michael Murillo Bilirubin Ql (U) Normal [facility] Comment on above: Performed By: #### C ALCULI #### [facility] [address] [place] [address] Dr. Michael Murillo Ca Oxalate Dihydrate 20 % Normal [facility] Comment on above: Performed By: #### C ALCULI #### [facility] [address] [address] [address] Michael Murillo CaHPO4 (Brushite) Normal [facility] Comment on above: Performed By: #### C ALCULI #### [facility] [address] [address] [address] Michael Murillo Calcium Bilirubinate Normal [facility] Comment on above: Performed By: #### C ALCULI #### [facility] [address] [address] [address] Michael Murillo Calcium Carbonate Normal [facility] Comment on above: Performed By: #### C ALCULI #### [facility] [address] [address] [address] Michael Murillo Calcium Oxalate Monohydrate 70 % Normal [facility] Comment on above: Performed By: #### C ALCULI #### [facility] [address] [address] [address] Michael Murillo Calcium Palmitate Normal [facility] Comment on above: Performed By: #### C ALCULI #### [facility] [address] [address] [address] Michael Murillo Calcium Phosphate [facility] Comment on above: Performed By: #### C ALCULI #### [facility] [address] [address] [address] Michael Murillo Calcium Stearate Normal [facility] Comment on above: Performed By: #### C ALCULI #### [facility] [address] [address] [address] Michael Murillo Carbonate Apatite Normal [facility] Comment on above: Performed By: #### C ALCULI #### [facility] [address] [address] [address] Michael Murillo Cellular Material Normal [facility] Comment on above: Performed By: #### C ALCULI #### [facility] [address] [address] [address] Michael Murillo Cholesterol [facility] Comment on above: Performed By: #### C ALCULI #### [facility] [address] [address] [address] Michael Mruillo Color (U) Brown Normal [facility] Comment on above: Performed By: #### C ALCULI #### [facility] [address] [address] [address] Michael Murillo Comment Comment [facility] Comment on above: Result Comment: Calc ium phosphate (hydroxyl form) includes hydroxyapatite, amorphous calcium phosphate, and whitlockite. Hydroxyapatite is the most common of the calcium phosphate salts found in human kidney stones. Performed By: #### C ALCULI #### [facility] [address] [place] [address] Dr. Michael Murillo Comment Normal [facility] Comment on above: Performed By: #### C ALCULI #### [facility] [address] [place] [address] Dr. Michael Murillo Comment: Comment Normal [facility] Comment on above: Result Comment: Malissa feldman questions regarding Calculi Analysis contact [facility] at: [phone]. Performed By: #### C ALCULI #### [facility] [address] [place] [address] Dr. Michael Murillo Composition Comment Normal [facility] Comment on above: Result Comment: Perc entage (Represents the % composition) Performed By: #### C ALCULI #### [facility] [address] [place] [address] Dr. Michael Murillo Cystine Normal [facility] Comment on above: Performed By: #### C ALCULI #### [facility] [address] [place] [address] Dr. Michael Murillo Disclaimer: Comment Normal [facility] Comment on above: Result Comment: This test was developed and its performance characteristics determined by [facility]. It has not been cleared or approved by the Food and Drug Administration. Performed By: #### C ALCULI #### [facility] [address] [place] [address] Dr. Michael Murillo Dried Blood Normal [facility] Comment on above: Performed By: #### C ALCULI #### [facility] [address] [place] [address] Dr. Michael Murillo Drug or Metabolite Normal [facility] Comment on above: Performed By: #### C ALCULI #### [facility] [address] [place] [address] Dr. Michael Murillo Hydroxyapatite 10 % Normal [facility] Comment on above: Performed By: #### C ALCULI #### [facility] [address] [place] [address] Dr. Michael Murillo Mg NH4 PO4 (Struvite) Normal [facility] Comment on above: Performed By: #### C ALCULI #### [facility] [address] [address] [address] Michael Murillo MgHPO4 ([facility]) Normal [facility] [place] [facility] Comment on above: Performed By: #### C ALCULI #### [facility] [address] [address] [address] Michael Murillo Other component(s) Normal [facility] Comment on above: Performed By: #### C ALCULI #### [facility] [address] [address] [address] Michael Murillo PDF . Normal [facility] Comment on above: Performed By: #### C ALCULI #### [facility] [address] [address] [address] Michael Murillo Photo Comment [facility] Comment on above: Result Comment: Phot ograph will follow under a separate cover Performed By: #### C ALCULI #### [facility] [address] [address] [address] Michael Murillo Please note: Comment [facility] Comment on above: Result Comment: Calc antonino report will follow via computer, mail or roof foreman delivery. Performed By: #### C ALCULI #### [facility] [address] [address] [address] Michael Murillo Size 3x3 [facility] Comment on above: Result Comment: Mult iple pieces received. Dimensions of the largest piece reported. Performed By: #### C ALCULI #### [facility] [address] [address] [address] Michael Murillo Sodium Acid Urate Normal [facility] Comment on above: Performed By: #### C ALCULI #### [facility] [address] [address] [address] Michael Murillo Source Comment [facility] Comment on above: Result Comment: Left Kidney Performed By: #### C ALCULI #### [facility] [address] [address] [address] Michael Murillo Triamterene [facility] Comment on above: Performed By: #### C ALCULI #### [facility] [address] [address] [address] Michael Murillo Uric Acid Normal [facility] Comment on above: Performed By: #### C ALCULI #### [facility] [address] [address] [address] Michael Murillo Uric Acid Dihydrate Normal [facility] [place] [facility] Comment on above: Performed By: #### C ALCULI #### [facility] [address] [address] [address] Michael Murillo Weight 37 mg Normal [facility] Comment on above: Performed By: #### C ALCULI #### [facility] [address] [address] [address] Michael Murillo Xanthine Normal [facility] Comment on above: Performed By: #### C ALCULI #### [facility] [address] [address] [address] ABD/PELVIS WO CONon [...] FRANCK GARBER Date: 2022-06-24 22:07 Normal [facility] CARDIAC LUDMILA ADMITon 023 CK [Catalytic activity/Vol] 111 U/L Normal 26-192 [facility] Comment on above: Performed By: #### C MADM, CMP #### [facility] [address] [place] [address] Dr. Michael Murillo CK.MB [Mass/Vol] 0.90 ng/mL Normal <=3.60 [facility] Comment on above: Performed By: #### C PAWELM, CMP #### [facility] [address] [place] [address] Dr. Michael Murillo HSTROP 6.6 pg/mL Normal 4.0-51.3 [facility] Comment on above: Result Comment: CUT- OFF POINTS HAVE BEEN ESTABLISHED BASED ON THE FOURTH UNIVERSAL DEFINITIONS OF MYOCARDIAL INFARCTION. THE UPPER REFERENCE LIMIT (URL) OF TROPONIN, DEFINED THE 99TH PERCENTILE OF cTnI DISTRIBUTION IN A REFERENCE POPULATION, HAS BEEN CONFIRMED THE DECISION THRESHOLD FOR NM DIAGNOSIS. Performed By: #### C CHRISTOS, CMP #### [facility] [address] [place] [address] Dr. Michael Murillo KEARA 42 ng/mL Normal 9-82 [facility] Comment on above: Performed By: #### C CHRISTOS, CMP #### [facility] [address] [place] [address] Dr. Michael Murillo CBC AUTO DIFFon 06-24-2022 BASO # 0.0 103/ul Normal 0.0-0.1 [facility] Comment on above: Performed By: #### C BC #### [facility] [address] [place] [address] Dr. Michael Murillo Basophils/100 WBC (Bld) 0.5 % Normal 0.2-2.0 [facility] Comment on above: Performed By: #### C BC #### [facility] [address] [place] [address] Dr. Michael Murillo EO # 0.2 103/ul Normal 0.0-0.7 [facility] Comment on above: Performed By: #### C BC #### [facility] [address] [place] [address] Dr. Michael Murillo Eosinophils/100 WBC (Bld) 2.0 % Normal 0.9-7.0 [facility] Comment on above: Performed By: #### C BC #### [facility] [address] [place] [address] Dr. Michael Murillo Erythrocyte distribution width (RBC) [Ratio] 11.9 % Normal 11.0-15.0 [facility] Comment on above: Performed By: #### C BC #### [facility] [address] [place] [address] Dr. Michael Murillo Hematocrit (Bld) [Volume fraction] 40.8 % Normal 36.0-48.0 [facility] Comment on above: Performed By: #### C BC #### [facility] [address] [place] [address] Dr. Michael Murillo Hemoglobin (Bld) [Mass/Vol] 13.7 g/dL Normal 12.0-16.0 [facility] Comment on above: Performed By: #### C BC #### [facility] [address] [place] [address] Dr. Michael Murillo IG # 0.02 10e3/ul Normal 0.00-0.03 [facility] Comment on above: Performed By: #### C BC #### [facility] [address] [place] [address] Dr. Michael Murillo IG % 0.2 % Normal 0.0-0.5 [facility] Comment on above: Performed By: #### C BC #### [facility] [address] [place] [address] Dr. Michael uMrillo LYMPH # 2.0 103/ul Normal 1.2-3.8 [facility] Comment on above: Performed By: #### C BC #### [facility] [address] [place] [address] Dr. Michael Murillo Lymphocytes/100 WBC (Bld) 24.3 % Normal 20.5-60.0 [facility] Comment on above: Performed By: #### C BC #### [facility] [address] [place] [address] Dr. Michael Murillo MANUAL DIFF REQ NO Normal [facility] Comment on above: Performed By: #### C BC #### [facility] [address] [place] [address] Dr. Michael Murillo MCH (RBC) [Entitic mass] 30.2 pg Normal 26.7-34.0 [facility] Comment on above: Performed By: #### C BC #### [facility] [address] [place] [address] Dr. Michael Murillo MCHC (RBC) [Mass/Vol] 33.6 g/dL Normal 29.9-35.2 [facility] Comment on above: Performed By: #### C BC #### [facility] [address] [place] [address] Dr. Michael Murillo MCV (RBC) [Entitic vol] 89.9 fL Normal 81.0-99.0 [facility] Comment on above: Performed By: #### C BC #### [facility] [address] [place] [address] Dr. Michael Murillo MONO # 1.0 103/ul Critically high 0.3-0.8 [facility] Comment on above: Performed By: #### C BC #### [facility] [address] [place] [address] Dr. Michael Murillo Monocytes/100 WBC (Bld) 11.9 % Normal 1.7-12.0 [facility] Comment on above: Performed By: #### C BC #### [facility] [address] [place] [address] Dr. Michael Murillo NEUT # 5.1 103/ul Normal 1.4-6.5 [facility] Comment on above: Performed By: #### C BC #### [facility] [address] [place] [address] Dr. Michael Murillo Neutrophils/100 WBC (Bld) 61.1 % Normal 43.0-75.0 [facility] Comment on above: Performed By: #### C BC #### [facility] [address] [place] [address] Dr. Michael Murillo Platelet mean volume (Bld) [Entitic vol] 9.8 fL Normal 9.5-13.5 [facility] Comment on above: Performed By: #### C BC #### [facility] [address] [place] [address] Dr. Michael Murillo PLT 250 103/ul Normal 150-450 [facility] Comment on above: Performed By: #### C BC #### [facility] [address] [place] [address] Dr. Michael Murillo RBC 4.54 106/ul Normal 4.20-5.40 [facility] Comment on above: Performed By: #### C BC #### [facility] [address] [place] [address] Dr. Michael Murillo WBC 8.4 103/ul Normal 4.0-11.0 [facility] Comment on above: Performed By: #### C BC #### [facility] [address] [place] [address] Dr. Michael Murillo ER URINE PROFILEon 3 Bilirubin Ql (U) Negative Normal NEGATIVE [facility] Comment on above: Performed By: #### C ALCULI #### [facility] [address] [place] [address] Dr. Michael Murillo Clarity (U) CLEAR Normal CLEAR [facility] Comment on above: Performed By: #### C ALCULI #### [facility] [address] [place] [address] Dr. Michael Murillo Color (U) YELLOW Normal YELLOW [facility] Comment on above: Performed By: #### C ALCULI #### [facility] [address] [place] [address] Dr. Michael ALFONSO A micrscopic examination will be performed if indicated. Normal [facility] Comment on above: Performed By: #### C ALCULI #### [facility] [address] [place] [address] Dr. Michael Murillo Glucose Ql (U) Negative Normal NEGATIVE [facility] Comment on above: Performed By: #### C ALCULI #### [facility] [address] [place] [address] Dr. Michael Murillo Hemoglobin Ql (U) LARGE Abnormal NEGATIVE [facility] Comment on above: Performed By: #### C ALCULI #### [facility] [address] [place] [address] Dr. Michael Murillo Ketones Ql (U) Negative Normal NEGATIVE [facility] Comment on above: Performed By: #### C ALCULI #### [facility] [address] [place] [address] Dr. Michael Murillo LEUKOCYTES Negative Normal NEGATIVE [facility] Comment on above: Performed By: #### C ALCULI #### [facility] [address] [place] [address] Dr. Michael Murillo Nitrite Ql (U) Negative Normal NEGATIVE [facility] Comment on above: Performed By: #### C ALCULI #### [facility] [address] [place] [address] Dr. Michael Murillo pH (U) 8.0 [pH] Normal 5-9 [facility] Comment on above: Performed By: #### C ALCULI #### [facility] [address] [place] [address] Dr. Michael Murillo Protein (U) [Mass/Vol] 100 mg/dL Abnormal NEGAT ALETHA/ TRACE [facility] Comment on above: Performed By: #### C ALCULI #### [facility] [address] [place] [address] Dr. Michael Murillo SPEC GRAVITY 1.015 Normal 1.005-<=1.[address] [place] [address] Comment on above: Performed By: #### C ALCULI #### [facility] [address] [place] [address] Dr. Michael Murillo UR MICRO IND INDICATED Normal [facility] Comment on above: Performed By: #### C ALCULI #### [facility] [address] [place] [address] Dr. Michael Murillo Urobilinogen Qn (U) 0.2 {Kunal'U}/dL Normal 0.2 - 1. 0 [facility] Comment on above: Performed By: #### C ALCULI #### [facility] [address] [place] [address] Dr. Michael Murillo PROF 14(COMP METB)on 023 Albumin [Mass/Vol] 4.0 g/dL Normal 3.4-5.0 [facility] Comment on above: Performed By: #### C MADM, CMP #### [facility] [address] [address] [address] Michael Murillo Albumin/Globulin [Mass ratio] 1.1 {ratio} Normal [facility] Comment on above: Performed By: #### C MADM, CMP #### [facility] [address] [address] [address] Michael Murillo ALP [Catalytic activity/Vol] 104 U/L Normal 46-116 [facility] Comment on above: Performed By: #### C MADM, CMP #### [facility] [address] [address] [address] Michael Murillo ALT [Catalytic activity/Vol] 30 U/L Normal 14-59 [facility] Comment on above: Performed By: #### C MADM, CMP #### [facility] [address] [address] [address] Michael Murillo Anion gap [Moles/Vol] 13.0 mmol/L Normal [facility] Comment on above: Performed By: #### C MADM, CMP #### [facility] [address] [address] [address] Michael Murillo AST [Catalytic activity/Vol] 23 U/L Normal 15-37 [facility] Comment on above: Performed By: #### C MADM, CMP #### [facility] [address] [address] [address] Michael Murillo Bilirubin [Mass/Vol] 0.3 mg/dL Normal 0.2-1.0 [facility] Comment on above: Performed By: #### C MADM, CMP #### [facility] [address] [address] [address] Michael Murillo Calcium [Mass/Vol] 9.0 mg/dL Normal 8.5-10.1 [facility] Comment on above: Performed By: #### C MADM, CMP #### [facility] [address] [address] [address] Michael Murillo Chloride [Moles/Vol] 101 mmol/L Normal 98-107 [facility] Comment on above: Performed By: #### C MADM, CMP #### [facility] [address] [address] [address] Michael Murillo CO2 [Moles/Vol] 29.2 mmol/L Normal 21.0-32.0 [facility] Comment on above: Performed By: #### C MADM, CMP #### [facility] [address] [address] [address] Michael Murillo Creatinine [Mass/Vol] 0.97 mg/dL Normal 0.55-1.02 [facility] Comment on above: Performed By: #### C MADM, CMP #### [facility] [address] [place] [address] Dr. Michael Murillo EGFR-AF SAUDI ARABIAN >60 Normal >=60 [facility] Comment on above: Performed By: #### C PAWELM, CMP #### [facility] [address] [place] [address] Dr. Michael Murillo EGFR-NON AF SAUDI ARABIAN 59 mL/min/1.73m2 Critically low >=60 [facility] Comment on above: Performed By: #### C MADM, CMP #### [facility] [address] [place] [address] Dr. Michael Murillo Globulin (S) [Mass/Vol] 3.5 g/dL Normal [facility] Comment on above: Performed By: #### C PAWELM, CMP #### [facility] [address] [address] [address] Michael Murillo Glucose [Mass/Vol] 106 mg/dL Normal 74-106 [facility] Comment on above: Performed By: #### C MADM, CMP #### [facility] [address] [address] [address] Michael Murillo Potassium [Moles/Vol] 4.2 mmol/L Normal 3.5-5.1 [facility] Comment on above: Performed By: #### C MADM, CMP #### [facility] [address] [address] [address] Michael Murillo Protein [Mass/Vol] 7.5 g/dL Normal 6.4-8.2 [facility] Comment on above: Performed By: #### C CHRISTOS, CMP #### [facility] [address] [place] [address] Dr. Michael Murillo Sodium [Moles/Vol] 139 mmol/L Normal 136-145 [facility] Comment on above: Performed By: #### C CHRISTOS, CMP #### [facility] [address] [place] [address] Dr. Michael Murillo Urea nitrogen [Mass/Vol] 19.0 mg/dL Critically high 7.0-18.0 [facility] Comment on above: Performed By: #### C CHRISTOS, CMP #### [facility] [address] [place] [address] Dr. Michael Murillo Urea nitrogen/Creatinine [Mass ratio] 19.6 mg/mg Normal [facility] Comment on above: Performed By: #### C CHRISTOS, CMP #### [facility] [address] [place] [address] Dr. Michael Murillo URINE MICROSCOPIC ONLYon BACTERIA NONE SEEN Normal NONE SEEN [facility] Comment on above: Performed By: #### C ALCULI #### [facility] [address] [place] [address] Dr. Michael Murillo Bacteria identified Cx Nom (U) NOT INDICATED Normal [facility] Comment on above: Performed By: #### C ALCULI #### [facility] [address] [place] [address] Dr. Michael Murillo CAST NONE SEEN Normal NONE SEEN [facility] Comment on above: Performed By: #### C ALCULI #### [facility] [address] [place] [address] Dr. Michael Murillo Crystals LM Nom (Urine sed) NONE SEEN Normal NONE SEEN [facility] Comment on above: Performed By: #### C ALCULI #### [facility] [address] [place] [address] Dr. Michael Murillo Epithelial cells LM Ql (Urine sed) RARE Normal NONE SEEN /RARE [facility] Comment on above: Performed By: #### C ALCULI #### [facility] [address] [place] [address] Dr. Michael Murillo MUCOUS NONE SEEN Normal NONE SEEN [facility] Comment on above: Performed By: #### C ALCULI #### [facility] [address] [place] [address] Dr. Michael Murillo RBC (U) [#/Vol] /uL Abnormal 0-2 [facility] Comment on above: Performed By: #### C ALCULI #### [facility] [address] [place] [address] Dr. Michael Murillo WBC 0-2 Abnormal NONE SEEN [facility] Comment on above: Performed By: #### C ALCULI #### [facility] [address] [place] [address] Dr. Michael Murillo CBC AUTO DIFFon 06-19-2022 BASO # 0.1 103/ul Normal 0.0-0.1 [facility] Comment on above: Performed By: #### C ALCULI #### [facility] [address] [place] [address] Dr. Michael Murillo Basophils/100 WBC (Bld) 0.8 % Normal 0.2-2.0 [facility] Comment on above: Performed By: #### C ALCULI #### [facility] [address] [place] [address] Dr. Michael Murillo EO # 0.1 103/ul Normal 0.0-0.7 [facility] Comment on above: Performed By: #### C ALCULI #### [facility] [address] [place] [address] Dr. Michael Murillo Eosinophils/100 WBC (Bld) 1.4 % Normal 0.9-7.0 [facility] Comment on above: Performed By: #### C ALCULI #### [facility] [address] [place] [address] Dr. Michael Murillo Erythrocyte distribution width (RBC) [Ratio] 12.1 % Normal 11.0-15.0 [facility] Comment on above: Performed By: #### C ALCULI #### [facility] [address] [address] [address] Michael Murillo Hematocrit (Bld) [Volume fraction] 40.5 % Normal 36.0-48.0 [facility] Comment on above: Performed By: #### C ALCULI #### [facility] [address] [place] [address] Dr. Michael Murillo Hemoglobin (Bld) [Mass/Vol] 13.3 g/dL Normal 12.0-16.0 [facility] Comment on above: Performed By: #### C ALCULI #### [facility] [address] [place] [address] Dr. Michael Murillo IG # 0.02 10e3/ul Normal 0.00-0.03 [facility] Comment on above: Performed By: #### C ALCULI #### [facility] [address] [place] [address] Dr. Michael Murillo IG % 0.3 % Normal 0.0-0.5 [facility] Comment on above: Performed By: #### C ALCULI #### [facility] [address] [place] [address] Dr. Michael Murillo LYMPH # 1.7 103/ul Normal 1.2-3.8 [facility] Comment on above: Performed By: #### C ALCULI #### [facility] [address] [place] [address] Dr. Michael Murillo Lymphocytes/100 WBC (Bld) 25.4 % Normal 20.5-60.0 [facility] Comment on above: Performed By: #### C ALCULI #### [facility] [address] [place] [address] Dr. Michael Murillo MANUAL DIFF REQ NO Normal [facility] Comment on above: Performed By: #### C ALCULI #### [facility] [address] [place] [address] Dr. Michael Murillo MCH (RBC) [Entitic mass] 30.8 pg Normal 26.7-34.0 [facility] Comment on above: Performed By: #### C ALCULI #### [facility] [address] [place] [address] Dr. Michael Murillo MCHC (RBC) [Mass/Vol] 32.8 g/dL Normal 29.9-35.2 [facility] Comment on above: Performed By: #### C ALCULI #### [facility] [address] [address] [address] Michael Murillo MCV (RBC) [Entitic vol] 93.8 fL Normal 81.0-99.0 [facility] Comment on above: Performed By: #### C ALCULI #### [facility] [address] [address] [address] Michael Murillo MONO # 0.7 103/ul Normal 0.3-0.8 [facility] Comment on above: Performed By: #### C ALCULI #### [facility] [address] [address] [address] Michael Murillo Monocytes/100 WBC (Bld) 10.4 % Normal 1.7-12.0 [facility] Comment on above: Performed By: #### C ALCULI #### [facility] [address] [address] [address] Michael Murillo NEUT # 4.1 103/ul Normal 1.4-6.5 [facility] Comment on above: Performed By: #### C ALCULI #### [facility] [address] [address] [address] Michael Murillo Neutrophils/100 WBC (Bld) 61.7 % Normal 43.0-75.0 [facility] Comment on above: Performed By: #### C ALCULI #### [facility] [address] [address] [address] Michael Murillo Platelet mean volume (Bld) [Entitic vol] 10.0 fL Normal 9.5-13.5 [facility] Comment on above: Performed By: #### C ALCULI #### [facility] [address] [address] [address] Michael Murillo PLT 245 103/ul Normal 150-450 [facility] Comment on above: Performed By: #### C ALCULI #### [facility] [address] [address] [address] Michael Murillo RBC 4.32 106/ul Normal 4.20-5.40 [facility] Comment on above: Performed By: #### C ALCULI #### [facility] [address] [place] [address] Dr. Michael Murillo WBC 6.7 103/ul Normal 4.0-11.0 [facility] Comment on above: Performed By: #### C ALCULI #### [facility] [address] [place] [address] Dr. Michael Murillo PROF CHEM 8 (BAS METB)on Anion gap [Moles/Vol] 11.9 mmol/L Normal [facility] Comment on above: Performed By: #### C ALCULI #### [facility] [address] [place] [address] Dr. Michael Murillo Calcium [Mass/Vol] 9.1 mg/dL Normal 8.5-10.1 [facility] Comment on above: Performed By: #### C ALCULI #### [facility] [address] [place] [address] Dr. Michael Murillo Chloride [Moles/Vol] 100 mmol/L Normal 98-107 [facility] Comment on above: Performed By: #### C ALCULI #### [facility] [address] [place] [address] Dr. Michael Murillo CO2 [Moles/Vol] 28.3 mmol/L Normal 21.0-32.0 [facility] Comment on above: Performed By: #### C ALCULI #### [facility] [address] [place] [address] Dr. Michael Murillo Creatinine [Mass/Vol] 0.83 mg/dL Normal 0.55-1.02 [facility] Comment on above: Performed By: #### C ALCULI #### [facility] [address] [place] [address] Dr. Michael Murillo EGFR-AF SAUDI ARABIAN >60 Normal >=60 [facility] Comment on above: Performed By: #### C ALCULI #### [facility] [address] [address] [address] Michael Murillo EGFR-NON AF SAUDI ARABIAN >60 Normal >=60 [facility] Comment on above: Performed By: #### C ALCULI #### [facility] [address] [address] [address] Michael Murillo Glucose [Mass/Vol] 97 mg/dL Normal 74-106 [facility] Comment on above: Performed By: #### C ALCULI #### [facility] [address] [address] [address] Michael Murillo Potassium [Moles/Vol] 4.2 mmol/L Normal 3.5-5.1 [facility] Comment on above: Performed By: #### C ALCULI #### [facility] [address] [address] [address] Michael Murillo Sodium [Moles/Vol] 136 mmol/L Normal 136-145 [facility] Comment on above: Performed By: #### C ALCULI #### [facility] [address] [address] [address] Michael Murillo Urea nitrogen [Mass/Vol] 18.0 mg/dL Normal 7.0-18.0 [facility] Comment on above: Performed By: #### C ALCULI #### [facility] [address] [place] [address] Dr. Michael Murillo Urea nitrogen/Creatinine [Mass ratio] 21.7 mg/mg Normal [facility] Comment on above: Performed By: #### C ALCULI #### [facility] [address] [place] [address] Dr. Michael Murillo PROTIMEon 06-19-2022 INR Coag (PPP) [Relative time] {INR} Normal [facility] Comment on above: Performed By: #### C ALCULI #### [facility] [address] [place] [address] Dr. Michael Murillo INR GUIDELINES SEE BELOW Normal [facility] Comment on above: Result Comment: JORGE RED INR: 2.0 - 3.0 CONDITIONS NOT LISTED BELOW 2.5 - 3.5 FOR PROSTHETIC HEART VALVE REPLACEMENT 2.5 - 3.5 RECURRENT THROMBOSIS Performed By: #### C ALCULI #### [facility] [address] [place], [place] [address] Dr. Michael Murillo PT Coag (PPP) [Time] 9.8 s Normal 9.0-11.6 [facility] Comment on above: Performed By: #### C ALCULI #### [facility] [address] [place], [place] [address] Dr. Michael Murillo PTTon 06-19-2022 aPTT Coag (Bld) [Time] 28.9 s Normal 22.3-36.2 [facility] Comment on above: Performed By: #### C ALCULI #### [facility] [address] [place], [place] [address] ABD/PELVIS WO CONon [...] by: BENI ORTIZ Date: 2022-05-15 13:08 Normal [facility] XR KUB 1 VIEWon 03-24-2022 XR [...] by: JUDSON ENGLISH Date: 2022-03-24 06:57 Normal [facility] Vital Signs Date Time Vital Sign Value Performing Clinician Facility 08-25-2024 23:32-0400 Body temperature 98 [degF] Phillip Bruner MD Work Phone: [facility] 08-25-2024 23:32-0400 Diastolic blood pressure 76 mm[Hg] Phillip Bruner MD Work Phone: [facility] 08-25-2024 23:32-0400 Heart rate 101 /min Phillip Bruner MD Work Phone: [facility] 08-25-2024 23:32-0400 Respiratory rate 16 /min Phillip Bruner MD Work Phone: [facility] 08-25-2024 23:32-0400 SaO2% (BldA) [Mass fraction] 97 % Phillip Bruner MD Work Phone: [facility] 08-25-2024 23:32-0400 Systolic blood pressure 148 mm[Hg] Phillip Bruner MD Work Phone: [facility] 08-25-2024 16:51-0400 Body height 165.1 cm Phillip Bruner MD Work Phone: [facility] 08-25-2024 16:51-0400 Body weight 77.65 kg Phillip Bruner MD Work Phone: [facility] 06-06-2024 08:11-0500 Body height 162.6 cm Olivia Corbett MD Work Phone: [facility] 06-06-2024 08:11-0500 Body mass index (BMI) [Ratio] 26.45 kg/m2 Olivia Corbett MD Work Phone: [facility] 06-06-2024 08:11-0500 Body weight 69.9 kg Olivia Corbett MD Work Phone: [facility] 06-06-2024 08:11-0500 Diastolic blood pressure 87 mm[Hg] Olivia Corbett MD Work Phone: [facility] 06-06-2024 08:11-0500 Systolic blood pressure 153 mm[Hg] Olivia Corbett MD Work Phone: [facility] 05-05-2024 14:11-0500 Body height 165.1 cm Mckayla Erickson NP Work Phone: [facility] 05-05-2024 14:11-0500 Body mass index (BMI) [Ratio] 27.46 kg/m2 Mckayla Erickson [employer] Work Phone: [facility] 05-05-2024 14:11-0500 Body weight 74.84 kg Mckayla Erickson [employer] Work Phone: [facility] 12-25-2023 09:44-0400 Blood Pressure Location Elana Orzech [facility] 12-25-2023 09:44-0400 Body temperature 98.6 [degF] Elana Orzech [facility] 12-25-2023 09:44-0400 Diastolic blood pressure 76 mm[Hg] Elana Orzech [facility] 12-25-2023 09:44-0400 Heart rate 48 /min Elana Orzech [facility] 12-25-2023 09:44-0400 Respiratory rate 16 /min Elana Orzech [facility] 12-25-2023 09:44-0400 Systolic blood pressure 127 mm[Hg] Elana Orzech [facility] 10-23-2023 12:11-0400 Heart rate 51 /min Aubrie Lue [facility] 10-23-2023 12:11-0400 SaO2% (BldA) [Mass fraction] 96 % Aubrie Lue [facility] 10-23-2023 12:11-0400 Respiratory rate 16 /min Aubrie Lue [facility] 10-23-2023 12:10-0400 Blood Pressure Location Aubrie Lue [facility] 10-23-2023 12:10-0400 Diastolic blood pressure 77 mm[Hg] Aubrie Lue [facility] 10-23-2023 12:10-0400 Mean blood pressure 93 mm[Hg] Aubrie Lue [facility] 10-23-2023 12:10-0400 Systolic blood pressure 125 mm[Hg] Aubrie Lue [facility] 10-23-2023 11:21-0400 Heart rate 47 /min Aubrie Lue [facility] 10-23-2023 11:21-0400 SaO2% (BldA) [Mass fraction] 99 % Aubrie Lue [facility] 10-23-2023 11:20-0400 Diastolic blood pressure 85 mm[Hg] Aubrie Lue [facility] 10-23-2023 11:20-0400 Mean blood pressure 107 mm[Hg] Aubrie Lue [facility] 10-23-2023 11:20-0400 Systolic blood pressure 150 mm[Hg] Aubrie Lue [facility] 10-23-2023 11:20-0400 Respiratory rate 16 /min Aubrie Lue [facility] 10-23-2023 11:15-0400 Blood Pressure Location Aubrie Lue [facility] 10-23-2023 11:15-0400 Body temperature 97.16 [degF] Aubrie Lue [facility] 10-23-2023 11:15-0400 Diastolic blood pressure 74 mm[Hg] Aubrie Lue [facility] 10-23-2023 11:15-0400 Heart rate 45 /min Aubrie Lue [facility] Comment on above: Result Comment: asymptomatic, preop HR n oted for 55 10-23-2023 11:15-0400 Mean blood pressure 90 mm[Hg] Aubrie Lue [facility] 10-23-2023 11:15-0400 Respiratory rate 12 /min Aubrie Lue [facility] Comment on above: Result Comment: rise and fall not caught with EKG leads, manually counted 10-23-2023 11:15-0400 SaO2% (BldA) [Mass fraction] 95 % Aubrie Lue [facility] 10-23-2023 11:15-0400 Systolic blood pressure 123 mm[Hg] Aubrei Lue [facility] 10-23-2023 11:00-0400 Mean blood pressure 87 mm[Hg] Aubrie Lue [facility] 10-23-2023 10:55-0400 Mean blood pressure 82 mm[Hg] Aubrie Lue [facility] 10-23-2023 10:55-0400 Respiratory rate 15 /min Aubrie Lue [facility] 10-23-2023 10:50-0400 Respiratory rate 12 /min Aubrie Lue [facility] 10-23-2023 10:46-0400 Body temperature 96.98 [degF] Aubrie Lue [facility] Comment on above: Result Comment: warm blanket applied 10-23-2023 07:10-0400 Mean blood pressure 92 mm[Hg] Aubrie Lue [facility] 10-23-2023 07:10-0400 Heart rate 58 /min Aubrie Lue [facility] 10-23-2023 07:08-0400 Body temperature 97.7 [degF] Aubrie Lue [facility] 10-19-2023 09:48-0400 Diastolic blood pressure 82 mm[Hg] Aubrie Lue [facility] 10-19-2023 09:48-0400 Heart rate 49 /min Aubrie Lue [facility] 10-19-2023 09:48-0400 Mean blood pressure 104 mm[Hg] Aubrie Lue [facility] 10-19-2023 09:48-0400 Systolic blood pressure 147 mm[Hg] Aubrie Lue [facility] 10-19-2023 09:48-0400 Heart rate 50 /min Aubrie Lue [facility] 10-19-2023 09:48-0400 SaO2% (BldA) [Mass fraction] 99 % Aubrie Lue [facility] 10-19-2023 09:48-0400 Body temperature 98.06 [degF] Aubrie Lue [facility] 10-19-2023 09:48-0400 Diastolic blood pressure 82 mm[Hg] Aubrie Lue [facility] 10-19-2023 09:48-0400 Mean blood pressure 106 mm[Hg] Aubrie Lue [facility] 10-19-2023 09:48-0400 Systolic blood pressure 153 mm[Hg] Aubrie Lue [facility] 10-19-2023 09:47-0400 Respiratory rate 16 /min Aubrie Lue [facility] 09-05-2023 11:03-0400 Blood Pressure Location KAILASH TRE [facility] 09-05-2023 11:03-0400 Body temperature 98.78 [degF] KAILASH TRE [facility] 09-05-2023 11:03-0400 Diastolic blood pressure 88 mm[Hg] KAILASH TRE [facility] 09-05-2023 11:03-0400 Heart rate 78 /min KAILASH TRE [facility] 09-05-2023 11:03-0400 Systolic blood pressure 144 mm[Hg] KAILASH TRE [facility] 06-05-2023 08:55-0500 Blood Pressure Location KAILASH TRE [facility] 06-05-2023 08:55-0500 Diastolic blood pressure 89 mm[Hg] KAILASH TRE [facility] 06-05-2023 08:55-0500 Heart rate 82 /min KAILASH TRE [facility] 06-05-2023 08:55-0500 Respiratory rate 16 /min KAILASH TRE [facility] 06-05-2023 08:55-0500 Systolic blood pressure 144 mm[Hg] KAILASH TRE [facility] 10-11-2022 09:53-0400 Blood Pressure Location Aubrie Lue [facility] 10-11-2022 09:53-0400 Diastolic blood pressure 78 mm[Hg] Aubrie Lue [facility] 10-11-2022 09:53-0400 Heart rate 68 /min Aubrie Lue [facility] 10-11-2022 09:53-0400 Respiratory rate 16 /min Aubrie Lue [facility] 10-11-2022 09:53-0400 Systolic blood pressure 140 mm[Hg] Aubrie Lue [facility] 06-16-2022 11:43-0500 Diastolic blood pressure 93 mm[Hg] Aubrie Lue [facility] 06-16-2022 11:43-0500 Mean blood pressure 119 mm[Hg] Aubrie Lue [facility] 06-16-2022 11:43-0500 Systolic blood pressure 172 mm[Hg] Aubrie Lue [facility] 06-16-2022 11:13-0500 Blood Pressure Location Aubrie Lue [facility] 06-16-2022 11:13-0500 Diastolic blood pressure 99 mm[Hg] Aubrie Lue [facility] 06-16-2022 11:13-0500 Heart rate 64 /min Aubrie Lue [facility] 06-16-2022 11:13-0500 Systolic blood pressure 166 mm[Hg] Aubrie Lue [facility] 03-24-2022 13:32-0500 Blood Pressure Location Aubrie Lue [facility] 03-24-2022 13:32-0500 Diastolic blood pressure 85 mm[Hg] Aubrie Lue [facility] 03-24-2022 13:32-0500 Heart rate 72 /min Aubrie Lue [facility] 03-24-2022 13:32-0500 Systolic blood pressure 170 mm[Hg] Aubrie Lue [facility] Encounters Encounter Date Encounter Type Care Provider Facility Start: 12-31-2024 ambulatory Aubrie M. Lue Facility:[facility] Start: 12-23-2024 End: 12-23-2024 Clinisync Result Encounter Sánchez Harman DO Work Phone: [facility] Unsolicited Start: 12-23-2024 End: 12-23-2024 Clinisync Result Encounter Sánchez Hammer DO Work Phone: [facility] Unsolicited Start: 12-04-2024 End: 12-04-2024 ambulatory Aubrie Nolasco Facility:[facility] Start: 12-04-2024 End: 12-04-2024 Patient encounter procedure Aubrie Nolasco [facility] Start: 09-10-2024 End: 09-10-2024 ambulatory Aubrie Nolasco Facility:[facility] Start: 09-04-2024 End: 09-04-2024 ambulatory [facility] Start: 08-25-2024 End: 08-28-2024 Evaluation and management of inpatient Phillip Bruner MD Work Phone: [address] Work Phone: Start: 08-25-2024 ambulatory Tay Giles acility:[facility] Start: 08-18-2024 End: 08-18-2024 Office outpatient visit 40 minutes Dasia Villegas MD Work Phone: [facility] Comment on above: Severe episode of re current major depressive disorder, without psychotic features (CMS-HCC) (Primary Dx); Adjustment disorder with anxiety Start: 08-18-2024 End: 08-18-2024 ambulatory [facility] Start: 06-26-2024 End: 08-26-2024 Follow-up encounter Olivia Corbett MD Work Phone: Rheumatology Start: 06-20-2024 End: 06-20-2024 ambulatory [facility] Start: 06-06-2024 End: 06-06-2024 Patient encounter procedure Olivia Corbett MD Work Phone: Rheumatology Comment on above: Pain in joint, multi ple sites (Primary Dx); Joint stiffness Start: 05-21-2024 End: 05-21-2024 ambulatory [facility] Start: 05-05-2024 End: 05-05-2024 Bamboo flowsheet Mckayla Erickson OIL SPOT WASHER Work Phone: [facility] Start: 05-05-2024 End: 05-05-2024 Bamboo flowsheet Mckayla Erickson [employer] W[employer]ER Work Phone: [facility] Start: 05-05-2024 End: 05-05-2024 Office outpatient new 30 minutes Mckayla Erickson [employer] Work Phone: [facility] Comment on above: Lumbar radiculopathy (Primary Dx); Lumbar pain Start: 05-05-2024 End: 05-05-2024 ambulatory MCKAYLA ERICKSON Not Available Start: 04-02-2024 End: 04-02-2024 ambulatory [facility] Start: 12-25-2023 End: 12-25-2023 Lab Drop off Elana X Orzech [facility] Start: 12-25-2023 End: 12-25-2023 ambulatory Elana X Orzech Facility:[facility] Start: 12-25-2023 End: 12-25-2023 Patient encounter procedure Elana X Orzech [facility] Start: 10-23-2023 End: 10-23-2023 Admission to same day surgery center Aubrie Nolasco [facility] Start: 10-23-2023 End: 10-23-2023 ambulatory Aubrie Nolasco Facility:[facility] Start: 10-19-2023 End: 10-19-2023 ambulatory Aubrie Nolasco Facility:[facility] Start: 10-19-2023 End: 10-19-2023 Patient encounter procedure Aubrie Nolasco [facility] Start: 10-18-2023 End: 10-18-2023 ambulatory SÁNCHEZ HAMMER Not Available Start: 09-19-2023 End: 10-06-2023 Pre-admission assessment Aubrie RebeccaAgustin Nolasco [facility] Start: 09-05-2023 End: 09-05-2023 ambulatory KAILASH E TRE Facility:[facility] Start: 09-05-2023 End: 09-05-2023 Lab Drop off KAILASH E TRE [facility] Start: 09-05-2023 End: 09-05-2023 ambulatory KAILASH E TRE Facility:[facility] Start: 09-05-2023 End: 09-05-2023 Patient encounter procedure KAILASH E TRE [facility] Start: 06-05-2023 End: 06-05-2023 Lab Drop off KAILASH E TRE [facility] Start: 06-05-2023 End: 06-05-2023 Patient encounter procedure KAILASH E TRE [facility] Start: 10-30-2022 End: 10-30-2022 Patient encounter procedure Aubrie MAgustin Nolasco [facility] Start: 10-11-2022 End: 10-11-2022 Patient encounter procedure Aubrie Nolasco [facility] Start: 10-10-2022 End: 10-11-2022 ambulatory AUBRIE DIAZE . Facility:[facility] Start: 09-11-[address] PHILLIP BRUNER . Facili ty:[facility] Start: 08-23-[address] PHILLIP BRUNER . Facili ty:[facility] Start: 08-02-2022 End: 08-03-[address] PHILLIP BRUNER . Facility:[facility] Start: 07-27-2022 End: 07-28-[address] PHILLIP BRUNER . Facility:[facility] Start: 07-25-2022 Encounter for genera l adult medical examination without abnormal findings DR PHILLIP BRUNER . [facility] Start: 07-21-2022 End: 07-22-[address] PHILLIP BRUNER . Facility:[facility] Start: 07-21-2022 End: 07-22-2022 Encounter for general adult medical examination without abnormal findings DR PHILLIP BRUNER . Facility:[facility] Start: 07-20-2022 End: 07-21-[address] PHILLIP BRUNER . Facility:[facility] Start: 07-13-2022 ambulatory AUBRIE DIAZE . Facility: [facility] Start: 07-10-2022 End: 07-11-[address] PHILLIP BRUNER . Facility:[facility] Start: 06-24-2022 End: 06-25-2022 ambulatory CHANEL JEONG . Facility:[facility] Start: 06-21-2022 Encounter for preprocedural cardiovascular examination AUBRIE M LUE . [facility] Start: 06-21-2022 Encounter for preprocedural laboratory examination AUBRIE M LUE . [facility] Start: 06-21-2022 End: 06-21-2022 ambulatory AUBRIE M LUE . Facility:[facility] Start: 06-19-2022 End: 06-20-2022 ambulatory AUBRIE M LUE . Facility:[facility] Start: 06-19-2022 End: 06-20-2022 Encounter for preprocedural laboratory examination AUBRIE M LUE . Facility:[facility] Start: 06-16-2022 End: 06-16-2022 Patient encounter procedure Aubrie M. Lue [facility] Start: 05-12-2022 End: 05-13-2022 ambulatory AUBRIE NOLASCO . Facility:[facility] Start: 04-12-2022 End: 04-12-2022 ambulatory AUBRIE NOLASCO . Facility:[facility] Start: 03-24-2022 End: 03-24-2022 Patient encounter procedure Aubrie Nolasco [facility] Start: 03-23-2022 End: 03-24-2022 ambulatory KAILASHMELLISSA TOLEDO Facility:[facility] Start: 01-17-[address] PHILLIP BRUNER . Facili ty:[facility] Start: 08-09-2021 End: 08-09-2021 Patient encounter procedure Tracy Christian Jr. [facility] Procedures Date Procedure Procedure Detail Performing Clinician Start: 12-23-2024 MM TOMOSYNTHESIS SCR EENING BI Sánchez Harman DO Work Phone: Start: 12-23-2024 Mammography Sánchez Fazi o DO Work Phone: Start: 05-05-2024 Radex spine lumbosac ral 2/3 views Mckayla Erickson NP Work Phone: Start: 10-23-2023 Cystoscopy Aubrie Lue Start: 10-25-2022 Cystoscopic laser lithotripsy of ureteric calculus KAILASH TOLEDO Start: 06-21-2022 Cystoscopic insertio n of ureteric stent Aubrie Gaurav Start: 06-21-2022 Ureteroscopy Aubrie Lue Start: 06-23-2021 Ankle region structu re (body structure) Tracy Christian Jr. Comment on above: nerve repair Start: 06-23-2020 Extracorporeal shock wave lithotripsy of calculus of kidney Tracy Christian Jr. Appendectomy Tracy Gino Velez Arthroscopy of shoulder Stormy y Gaurav Fixation of mandible Aubrie L udavid Fixation of mandible Elana Orzemaurice Hysterectomy Tracy Velez Ligation of fallopian tube D katenrico Christian Jr. Neuroplasty of major peripheral nerve of leg Aubrie Nolasco Surgical manipulatio n of the lumbar spine Aubrie Nolasco Tonsillectomy Tracy lerma Plan of Treatment Date Care Activity Detail Author Start: 2038 RSV Vaccine (1 - 1-d ose 75+ series) RSV Vaccine (1 - 1-dose 75+ series) [facility] Start: 03-01-2026 DTaP,Tdap and Td Vaccines (2 - Td or Tdap) DTaP,Tdap and Td Vaccines (2 - Td or Tdap) [facility] [employer] Start: 03-01-2026 Urine microalbumin profile DTaP,Tdap,Td Vaccine (2 - Td or Tdap) [facility] Start: 02-20-2025 Diabetes Screening Diabetes Screenin g [facility] Start: 01-12-2025 [facility] Start: 08-25-2024 Urine culture [facility] Start: 08-25-2024 Bacteria identified in Urine by Culture Urine Culture [facility] Start: 06-06-2024 End: 09-05-2024 Cyclic citrullinated peptide IgG Ab [Units/volume] in Serum or Plasma [facility] Comment on above: Expected: 06/06/2024 , Expires: 09/05/2024 Start: 06-06-2024 End: 09-05-2024 Rheumatoid factor [Units/volume] in Serum or Plasma [facility] Work Phone: Comment on above: Expected: 06/06/2024 , Expires: 09/05/2024 Start: 05-05-2024 End: 05-05-2024 Patient encounter procedure 05/05/2024 2:00 PM EST Office Visit [facility] [address] [place] [id number] Mckayla Erickson, EVY [address] [place] [address] Arrived [facility] Comment on above: Arrived Start: 01-13-2024 Covid-19 Vaccine ( season) Covid-19 Vaccine ( season) [facility] Start: 01-13-2024 Influenza vaccination Influenza Vacc ine (#1) [facility] Start: 06-03-2015 Pneumococcal Vaccine : 50+ (2 of 2 - PCV) Pneumococcal Vaccine: 50+ (2 of 2 - PCV) [facility] Start: 2013 Administration of varicella zoster vaccine Zoster (Shingles) Vaccine (1 of 2) [facility] Start: 2013 Shingrix Vaccine (1 of 2) Shingrix Vaccine (1 of 2) [facility] Start: 01-27-2008 Lipid panel Lipid Screening [facility] Start: 01-27-2008 Screening for malign ant neoplasm of colon [facility] Start: 2003 Screening for malign ant neoplasm of breast [facility] Start: 1993 Screening for malign ant neoplasm of cervix [facility] Start: 01-27-1984 Screening for malign ant neoplasm of cervix [facility] Start: 1981 Adult BMI Screening Adult BMI Screen [facility] Start: 1981 Anxiety Screening Anxiety Screening [facility] Start: 1981 Depression Screening Depression Scre ing [facility] Start: 1981 HIV screening HIV Screening [facility] Start: 1975 Depression Screening Depression Scre ing [facility] Start: 1975 Tobacco Screening Tobacco Screening [facility] Start: 1963 Screening for malign ant neoplasm of colon [facility] Immunizations Immunization Date Immunization Notes Care Provider Fa cility 01-12-2023 influenza virus vacc ine, unspecified formulation KAILASH TRE [facility] 03-14-2022 influenza virus vacc ine, unspecified formulation Dasia Villegas MD Work Phone: [facility] 02-13-2022 influenza virus vacc ine, unspecified formulation Mckayla Erickson NP Work Phone: [facility] 02-13-2022 influenza, unspecifi ed formulation Aubrie Lue [facility] 03-10-2021 influenza virus vacc ine, unspecified formulation Mckayla Erickson NP Work Phone: [facility] 03-10-2021 influenza, unspecifi ed formulation Aubrie Lue [facility] 03-09-2021 SARS-CoV-2 (COVID-19 ) mRNA-1273 vaccine Aubrie Lue [facility] 06-11-2020 SARS-CoV-2 (COVID-19 ) Ad26 vaccine, recombinant Tracy Christian Jr. [facility] 06-09-2020 SARS-CoV-2 (COVID-19 ) mRNA-1273 vaccine Aubrie Lue [facility] 05-21-2020 SARS-CoV-2 (COVID-19 ) Ad26 vaccine, recombinant Tracy Christian Jr. [facility] 05-19-2020 SARS-CoV-2 (COVID-19 ) mRNA-1273 vaccine Aubrie Lue [facility] 05-12-2020 SARS-CoV-2 (COVID-19 ) mRNA-1273 vaccine Aubrie Lue [facility] 02-25-2020 influenza virus vacc ine, unspecified formulation Aubrie Nolasco [facility] 02-25-2020 influenza, seasonal, injectable Mckayla Erickson NP Work Phone: [facility] 03-01-2016 tetanus toxoid, redu ann diphtheria toxoid, and acellular pertussis vaccine, adsorbed Aubrie Natydavid [facility] 05-14-2011 pneumococcal polysaccharide vaccine, 23 valent Aubrie Gaurav [facility] 03-24-2009 novel influenza-H1N1 -09, preservative-free, injectable Mckayla Erickson NP Work Phone: [facility] Payers Date Payer Category Payer Self-pay 2024 Unknown [id number] 2023 Private Health Insurance [id number] 2022 Blue [employer] Blue Shield [id number] [id number] 2022 [facility] Blue [facility] [employer] - O ANTH [id number]. [id number] 2022 Unknown 2019 Unknown [id number] 2016 Unknown [id number] 1963 Unknown [id number] 2.16.840.1.667558.3.579.2. 593 1963 Unknown [id number] 2.16.840.1.577987.3.579.2. 593 1963 Unknown [id number] 2.16.840.1.458200.3.579.2. 593 1963 Unknown [id number] 2.16.840.1.467756.3.579.2. 593 1963 Unknown [id number] 2.16.840.1.110958.3.579.2. 593 1963 Unknown [id number] 2.16.840.1.141665.3.579.2. 593 1963 Unknown [id number] 2.16.840.1.900892.3.579.2. 593 1963 Unknown [id number] 2.16.840.1.938764.3.579.2. 593 1963 Unknown [id number] 2.16.840.1.042581.3.579.2. 593 1963 Unknown [id number] 2.16.840.1.948798.3.579.2. 593 1963 Unknown [id number] 2.16.840.1.892392.3.579.2. 593 1963 Unknown [id number] 2.16.840.1.925171.3.579.2. 593 1963 Unknown [id number] 2.16.840.1.444145.3.579.2. 593 1963 Unknown [id number] 2.16.840.1.118630.3.579.2. 593 1963 Unknown [id number] 2.16.840.1.495289.3.579.2. 593 1963 Unknown [id number] 2.16.840.1.143161.3.579.2. 593 1963 Unknown [id number] 2.16.840.1.274484.3.579.2. 1259 1963 Unknown [id number] 2.16.840.1.917725.3.579.2. 1259 1963 Unknown [id number] 2.16.840.1.976133.3.579.2. 1259 1963 Unknown [id number] 2.16.840.1.723277.3.579.2. 727 1963 Unknown [id number] 2.16.840.1.151938.3.579.2. 727 1963 Unknown [id number] 2.16.840.1.541837.3.579.2. 727 1963 Unknown [id number] 2.16.840.1.260003.3.579.2. 727 1963 Unknown [id number] 2.16.840.1.760467.3.579.2. 1286 1963 Unknown [id number] 2.16.840.1.477264.3.579.2. 1286 1963 Unknown [id number] 2.16.840.1.214855.3.579.2. 1286 1963 Unknown [id number] 2.16.840.1.137283.3.579.2. 1286 1963 Unknown [id number] 2.16.840.1.060835.3.579.2. 1286 1963 Unknown [id number] 2.16.840.1.563265.3.579.2. 727 1963 Unknown [id number] 2.16.840.1.455627.3.579.2. 727 1963 Unknown [id number] 2.16.840.1.241855.3.579.2. 727 1963 Unknown [id number] 2.16.840.1.938965.3.579.2. 727 1963 Unknown [id number] 2.16.840.1.065533.3.579.2. 727 1959 Unknown [id number] 1959 Unknown [id number] Unknown [facility] [employer] Access [id number] Unknown [id number] 2.16.840.1.172579.3.579.2. 531 Unknown [id number] 2.16.840.1.018658.3.579.2. 531 Social History Date Type Detail Facility Start: 01-28-2021 End: 04-28-2024 Tobacco smoking status Never smoked tobacco (finding) [facility] Tobacco smoking status Never [facility] Start: 04-28-2024 End: 05-05-2024 Sex Assigned At Female [facility] Start: 07-15-2013 End: 04-28-2024 Tobacco use and exposure Smokeless tobacco non-user [facility] Start: 04-28-2024 End: 05-05-2024 Alcoholic beverage intake Ex-drinker (finding) [facility] Start: 04-28-2024 End: 05-05-2024 History of Social function [facility] Start: 1965 Sex assigned at Not on file [facility] Start: 11-16-2014 Alcoholic beverage intake Current non-drinker of alcohol (finding) [facility] Tobacco smoking stat [facility] Tobacco smoking consumption unknown [facility] Start: 1963 Sex assigned at Female [facility] Start: 12-17-2014 End: 08-25-2024 Sex Female (finding) [facility] Start: 04-01-2024 Gender identity Identifies as female gender (finding) [facility] Start: 04-01-2024 Sexual orientation Heterosexual (finding) [facility] Sexual Orientation [facility] Medical Equipment Procedure Code Equipment Code Equipment Origin al Text Equipment Identifier Dates Stent Uret 7fr 2 6cm W/O Gw [facility] - [id number] Start: 07-06-2014 Functional Status Date Assessment Result Facility 12-25-2023 Functional Status N/A [facility] 10-19-2023 Functional Status No [facility] 09-05-2023 Functional Status N/A [facility] 06-05-2023 Functional Status N/A [facility] 10-30-2022 Functional Status N/A [facility] 10-11-2022 Functional Status N/A [facility] 06-16-2022 Functional Status N/A [facility] 03-24-2022 Functional Status N/A [facility] 11-16-2014 Are you deaf, or do you have serious difficulty hearing No 11/16/2014 3:04 PM Keyonna Melendez, PCNA [facility] 11-16-2014 Are you blind, or do you have serious difficulty seeing, even when wearing glasses No 11/16/2014 3:04 PM Keyonna Melendez, PCNA No [facility] 11-16-2014 Do you have serious difficulty walking or climbing stairs No 11/16/2014 3:04 PM Keyonna Melendez PCNA No [facility] 11-16-2014 Do you have difficul ty dressing or bathing No 11/16/2014 3:04 PM Keyonna Melendez PCNA No [facility] 11-16-2014 Because of a physica l, mental, or emotional condition, do you have difficulty doing errands alone such as visiting a physician's office or shopping No 11/16/2014 3:04 PM EDT Keyonna Quinn, DAKOTAH No [facility] Mental Status Date Assessment Result Facility 11-16-2014 Because of a physica l, mental, or emotional condition, do you have serious difficulty concentrating, remembering, or making decisions No 11/16/2014 3:04 PM EDT Keyonna Quinn, DAKOTAH No [facility] Clinical Notes 08-09-2021 to 11-20-2024 Psychiatric Progress Note - Dasia Villegas MD - 08/18/2024 2:00 PM EDTPsychiatric Progress Note - Dasia Villegas MD - 08/18/2024 2:00 PM Olivia Cobb MD - 06/06/2024 8:15 AM EST Note Date & Type Note Facility 11-20-2024 Hospital Discharg e instructions Follow Up Care 11/20/2024 15:39:48 With:Gaurav MADRID, AMBER Greco, URO Address: [facility] [place] [address]- [phone] When: Unknown [facility] 08-18-2024 Miscellaneous Notes [address] [facility] [id number] Patient: Eli Boyce Date of : 1965 Encounter Date: 08/18/2024 Video Visit via Real-time Synchronous Audiovisual Provider Location: [facility] [address] [place] [address] Patient Location: Patient's home Video Visit Consent Statement: I discussed risks, benefits, and alternatives of a real-time synchronous audiovisual consultation with the patient (and any accompanying persons) including the risks that the patient's personal health details and medical records will be discussed over real-time, synchronous, interactive video/audio/telecommunication technology, the visit will not be recorded without the express consent of both the provider and the patient, and that there are some limitations compared to jcce-ft-frrm evaluations. The patient consented to the presence of additional virtual and/or in-person participants. We elected to proceed. History of Present Illness/Psychiatric Review of Symptoms/Medical Review of Systems: The patient is a 59 y.o. female, established patient, and is here for follow-up visit. Patient schedules urgently-see messages. History of Present Illness: Eli presents with worsening depressive symptoms and anxiety over the past couple of weeks. She reports not getting out of bed, having zero appetite, and feeling anxious about not getting better. The patient describes her current depressive episode as being at its worst for the past couple of weeks. She is experiencing significant fatigue, struggling to get out of bed in the morning, and has a markedly decreased appetite, though she is making efforts to eat. Eli expresses persistent anxiety, particularly focused on fears that she won't recover from her current state. She reports muscle twitching, which can occur in her face and randomly throughout her body, as well as tingling in her lips and throat. Sleep has been somewhat improved since starting amitriptyline 50 mg at bedtime a few days ago, prescribed by her family physician. However, Eli still reports waking up with anxiety. Her self-care has declined, though she states she is still maintaining basic hygiene. She quit work in January of the previous year and is currently staying at home most of the time with minimal social interaction. Eli denies any current suicidal thoughts. She expresses interest in understanding what psychiatric hospitalization entails but is hesitant about pursuing that option at this time. Social History: Eli quit work in January of the previous year. She is currently staying at home a lot with limited visits from family and friends. She is not participating in any activities. Her appetite is very low, experiencing some weight loss. She has been experiencing persistent anxiety for a couple of weeks and is having difficulty sleeping, waking up with anxiety. Past Psychiatric History: Eli has a history of major depressive disorder and anxiety disorder, both ongoing. She has tried ketamine treatment for depression approximately 1-2 years ago, which she described as a horrible experience, like a nightmare . Her medication history includes Pristiq, Vraylar (discontinued due to severe nausea), Abilify (helped in the past), Xanax, Wellbutrin, Trintellix, Mirtazapine (Remeron), Lexapro (worked well for a while), and Doxepin (caused stomach issues). Patient complains of constitutional, neurological, or gastrointestinal symptoms or other: fatigue Past Medical, Family, and Social History Update: The following portions of the patient's history were reviewed and updated as appropriate: allergies, current medications, past family history, past medical history, past social history, past surgical history and problem list. Past Medical History: Diagnosis Date Kidney stones Leg pain Neuropathy Past Surgical History: Procedure Laterality Date CHOLECYSTECTOMY 2007 HYSTERECTOMY 2011 KIDNEY STONE SURGERY 2014 Current Outpatient Medications Medication Sig Dispense Refill amitriptyline (ELAVIL) 50 mg tablet ALPRAZolam (XANAX) 0.25 mg tablet CHOLECALCIFEROL, VITAMIN D3, (VITAMIN D3 ORAL) Take by mouth. desvenlafaxine (PRISTIQ) 100 mg 24 hr tablet Take 1 tablet (100 mg total) by mouth once daily. 90 tablet 0 desvenlafaxine (PRISTIQ) 50 mg 24 hr tablet Take 1 tablet (50 mg total) by mouth in the morning. Take with 100 mg tablet for total of 150 mg daily.. 30 tablet 0 metoprolol tartrate (LOPRESSOR) 50 mg tablet Take 50 mg by mouth 2 (two) times a day. 11 ondansetron (ZOFRAN) 4 mg tablet Take 1 tablet (4 mg total) by mouth 2 (two) times a day as needed for nausea. 20 tablet 0 No current facility-administered medications for this visit. (All medications reviewed and updated by provider since last office visit or hospitalization) Allergies: No known drug allergies Tobacco History: Social History Tobacco Use Smoking Status Not on file Smokeless Tobacco Not on file (If patient a smoker, smoking cessation counseling offered) Social History: Social History Substance and Sexual Activity Alcohol Use None Problem List: Patient Active Problem List Diagnosis Severe episode of recurrent major depressive disorder, without psychotic features ([facility]) Adjustment disorder with anxiety Physical Exam: There were no vitals taken for this visit. Mental Status Examination: Alertness: good Orientation: good Psychomotor: fair Affect: Quite Restricted Speech: Monotone Thought Process: Goal-directed Associations: Logical and linear Thought Content: Experiencing anxiety, questioning whether she can get back to her previous self and recover from the depression fully. Suicidal Ideation: Denied thoughts, plans, intention. Attention: Appears intact Memory: Reasonably intact Insight/Judgment: Reasonably intact Assessment and Plan: Diagnoses and all orders for this visit: Severe episode of recurrent major depressive disorder, without psychotic features ([facility]) - desvenlafaxine (PRISTIQ) 50 mg 24 hr tablet; Take 1 tablet (50 mg total) by mouth in the morning. Take with 100 mg tablet for total of 150 mg daily.. Adjustment disorder with anxiety Assessment and Plan: 1. Major Depressive Disorder with Anxiety: Assessment: Patient reports worsening depressive symptoms over the past couple of weeks, including low mood, anxiety, poor sleep, and decreased appetite. She expresses fear of not getting better and persistent anxiety. Patient has a history of having tried multiple antidepressants with limited success. No current suicidal ideation. Given the patient's history of limited response to multiple antidepressants and current symptom severity, she may be experiencing treatment-resistant depression. Plan: - Increase Pristiq to 150 mg daily (add 50 mg to current 100 mg dose) - Continue amitriptyline 50 mg at bedtime for sleep - Patient to call in 2 weeks to report progress - If no improvement after Pristiq dose increase, consider adding Abilify 5 mg daily - Discussed option of psychiatric hospitalization if symptoms worsen or become unmanageable - Follow-up appointment in approximately one month Risks and benefits of medication reviewed. YES Patient voiced understanding and agreement with the treatment plan. YES Therapy time: 16-18 minutes; primarily supportive, helping patient cope with current difficulties and instill hope for recovery from the condition Dasia Villegas MD documented in this encounter [facility] 08-18-2024 Progress note Formatting of t his note is different from the original. [address] [place] [address] Patient: Eli Boyce Date of : 1965 Encounter Date: 08/18/2024 Video Visit via Real-time Synchronous Audiovisual Provider [facility] [address] [place] [address] Patient Location: Patient's home Video Visit Consent Statement: I discussed risks, benefits, and alternatives of a real-time synchronous audiovisual consultation with the patient (and any accompanying persons) including the risks that the patient's personal health details and medical records will be discussed over real-time, synchronous, interactive video/audio/telecommunication technology, the visit will not be recorded without the express consent of both the provider and the patient, and that there are some limitations compared to cdcw-ao-kwdf evaluations. The patient consented to the presence of additional virtual and/or in-person participants. We elected to proceed. History of Present Illness/Psychiatric Review of Symptoms/Medical Review of Systems: The patient is a 59 y.o. female, established patient, and is here for follow-up visit. Patient schedules urgently-see messages. History of Present Illness: Eli presents with worsening depressive symptoms and anxiety over the past couple of weeks. She reports not getting out of bed, having zero appetite, and feeling anxious about not getting better. The patient describes her current depressive episode as being at its worst for the past couple of weeks. She is experiencing significant fatigue, struggling to get out of bed in the morning, and has a markedly decreased appetite, though she is making efforts to eat. Eli expresses persistent anxiety, particularly focused on fears that she won't recover from her current state. She reports muscle twitching, which can occur in her face and randomly throughout her body, as well as tingling in her lips and throat. Sleep has been somewhat improved since starting amitriptyline 50 mg at bedtime a few days ago, prescribed by her family physician. However, Eli still reports waking up with anxiety. Her self-care has declined, though she states she is still maintaining basic hygiene. She quit work in January of the previous year and is currently staying at home most of the time with minimal social interaction. Eli denies any current suicidal thoughts. She expresses interest in understanding what psychiatric hospitalization entails but is hesitant about pursuing that option at this time. Social History: Eli quit work in January of the previous year. She is currently staying at home a lot with limited visits from family and friends. She is not participating in any activities. Her appetite is very low, experiencing some weight loss. She has been experiencing persistent anxiety for a couple of weeks and is having difficulty sleeping, waking up with anxiety. Past Psychiatric History: Eli has a history of major depressive disorder and anxiety disorder, both ongoing. She has tried ketamine treatment for depression approximately 1-2 years ago, which she described as a horrible experience, like a nightmare . Her medication history includes Pristiq, Vraylar (discontinued due to severe nausea), Abilify (helped in the past), Xanax, Wellbutrin, Trintellix, Mirtazapine (Remeron), Lexapro (worked well for a while), and Doxepin (caused stomach issues). Patient complains of constitutional, neurological, or gastrointestinal symptoms or other: fatigue Past Medical, Family, and Social History Update: The following portions of the patient's history were reviewed and updated as appropriate: allergies, current medications, past family history, past medical history, past social history, past surgical history and problem list. Past Medical History: Diagnosis Date Kidney stones Leg pain Neuropathy Past Surgical History: Procedure Laterality Date CHOLECYSTECTOMY 2007 HYSTERECTOMY 2011 KIDNEY STONE SURGERY 2014 Current Outpatient Medications Medication Sig Dispense Refill amitriptyline (ELAVIL) 50 mg tablet ALPRAZolam (XANAX) 0.25 mg tablet CHOLECALCIFEROL, VITAMIN D3, (VITAMIN D3 ORAL) Take by mouth. desvenlafaxine (PRISTIQ) 100 mg 24 hr tablet Take 1 tablet (100 mg total) by mouth once daily. 90 tablet 0 desvenlafaxine (PRISTIQ) 50 mg 24 hr tablet Take 1 tablet (50 mg total) by mouth in the morning. Take with 100 mg tablet for total of 150 mg daily.. 30 tablet 0 metoprolol tartrate (LOPRESSOR) 50 mg tablet Take 50 mg by mouth 2 (two) times a day. 11 ondansetron (ZOFRAN) 4 mg tablet Take 1 tablet (4 mg total) by mouth 2 (two) times a day as needed for nausea. 20 tablet 0 No current facility-administered medications for this visit. (All medications reviewed and updated by provider since last office visit or hospitalization) Allergies: No known drug allergies Tobacco History: Social History Tobacco Use Smoking Status Not on file Smokeless Tobacco Not on file (If patient a smoker, smoking cessation counseling offered) Social History: Social History Substance and Sexual Activity Alcohol Use None Problem List: Patient Active Problem List Diagnosis Severe episode of recurrent major depressive disorder, without psychotic features ([facility]) Adjustment disorder with anxiety Physical Exam: There were no vitals taken for this visit. Mental Status Examination: Alertness: good Orientation: good Psychomotor: fair Affect: Quite Restricted Speech: Monotone Thought Process: Goal-directed Associations: Logical and linear Thought Content: Experiencing anxiety, questioning whether she can get back to her previous self and recover from the depression fully. Suicidal Ideation: Denied thoughts, plans, intention. Attention: Appears intact Memory: Reasonably intact Insight/Judgment: Reasonably intact Assessment and Plan: Diagnoses and all orders for this visit: Severe episode of recurrent major depressive disorder, without psychotic features ([facility]) - desvenlafaxine (PRISTIQ) 50 mg 24 hr tablet; Take 1 tablet (50 mg total) by mouth in the morning. Take with 100 mg tablet for total of 150 mg daily.. Adjustment disorder with anxiety Assessment and Plan: 1. Major Depressive Disorder with Anxiety: Assessment: Patient reports worsening depressive symptoms over the past couple of weeks, including low mood, anxiety, poor sleep, and decreased appetite. She expresses fear of not getting better and persistent anxiety. Patient has a history of having tried multiple antidepressants with limited success. No current suicidal ideation. Given the patient's history of limited response to multiple antidepressants and current symptom severity, she may be experiencing treatment-resistant depression. Plan: - Increase Pristiq to 150 mg daily (add 50 mg to current 100 mg dose) - Continue amitriptyline 50 mg at bedtime for sleep - Patient to call in 2 weeks to report progress - If no improvement after Pristiq dose increase, consider adding Abilify 5 mg daily - Discussed option of psychiatric hospitalization if symptoms worsen or become unmanageable - Follow-up appointment in approximately one month Risks and benefits of medication reviewed. YES Patient voiced understanding and agreement with the treatment plan. YES Therapy time: 16-18 minutes; primarily supportive, helping patient cope with current difficulties and instill hope for recovery from the condition Dasia Villegas MD [facility] [employer] [facility] 06-06-2024 History of Presen t illness Narrative Eli Boyce is a 59 year old female who presents for arthralgias HPI:59 yr with h/o Anxiety and Major Depression, HTN, Nerve impingment, Medullary kidney disease with multiple stones, Herniated discs ?RA who is here to establish care Told in past she had RA, later told she did not have RA . Stopped all meds for RA in 2014 after visit here at [facility] and no worsening of arthralgias since stopping her meds. Has pain in both hands- chronic for years,since early 30's. Moderate pain which is consant Also pain in both feet No swelling of these joints Em stiffness- few minutes +chronic back pain - s/p surgery 2018 No rash, ulcers, fevers, swollen lymph nodes, DVT/PE, raynauds, sicca symptoms, trouble swallowing red eyes, Chron's/UC or Psoriasis. Interesting history- Rheum in [place] treating patient for RA with multiple meds- MTX, Humira, Remicade, O[place], Simponi and few others she cannot recall. Stopped all meds in 2013 as no improvement in arthralgias after seeing rheum specialist here at [facility] who did not suspect she had RA [...] Rng 07/07/2013 Sm Antibody <1.0 AI 0.3 CHANGE MANAGEMENT CONSULTANT Antibody <1.0 AI 0.4 SSA Antibody <1.0 AI <0.2 SSB Antibody <1.0 AI <0.2 Centromere Ab <1.0 AI <0.2 Scleroderma Ab, IgG <1.0 AI <0.2 Marlin 1 Antibody <1.0 AI <0.2 Ribosomal CHANGE MANAGEMENT CONSULTANT <1.0 AI <0.2 Chromatin Antibody <1.0 AI [...] of RA - diagnosed by rheum in [place] and treated with multiple meds Evaluated by rheum at [facility] ( Dr Baez) on 05/06/24 and did [...] Olivia Corbett MD documented in this encounter [facility] 05-05-2024 History of Presen t illness Narrative Images from the original note [...] ANKLE SURGERY Left CHOLECYSTECTOMY HYSTERECTOMY LUMBAR DISCECTOMY 2018 DR PARR MANDIBLE SURGERY SHOULDER SURGERY Right [...] findings of the lumbar spine. 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 documented in this encounter [facility] 12-25-2023 Hospital Discharg e instructions Patient Education 12/25/2023 10:21:49 Overactive Bladder, [...] your health care provider. General instructions Take euep-jmo-bhwcaxj and prescription medicines only as told by [...] provider. Document Revised: 01/17/2021 Document Reviewed: 01/17/2021 [employer] Patient Education 2022 [employer]. 12/25/2023 10:21:39 Dietary Guidelines to Help Prevent [...] include: ?8 oz (237 mL) of milk, oysuqej-zaoocrmevbju-dlygn milk, and calcium-fortifiedfruit juice. Calcium-fortified means that [...] ?Spinach (cooked), rhubarb, beets, sweet potatoes, and Greenlandic chard. ?Peanuts. ?Potato chips, rwandan fries, and baked potatoes with skin on. ?Nuts and nut products. ?Chocolate. If you regularly take a diuretic medicine, make sure to eat at least 1 or 2 servings of fruits or vegetables that are high in potassium each day. These include: ?Avocado. ?Banana. ?[place], prune, carrot, or tomato juice. ?Baked potato. [...] magnesium, fish oil, or vitamin B6. Take vxht-kde-hymjoxm and prescription medicines only as told by [...] Casseroles. Pizza. Lasagna. Frozen meals. Potato chips. Egyptian fries. The items listed above may not [...] provider. Document Revised: 08/10/2022 Document Reviewed: 08/10/2022 [employer] Patient Education 2022 [employer]. Follow Up Care 10/24/2023 09:02:56 With:Gaurav MADRID, Aubrie Cho, URL, URO Address: When: Unknown Comments:6 mos kub/ferny [facility] Page 12-25-2023 Note Urology Office/Clini c Note Chief [...] with voice recognition artificial intelligence software, specifically Clarivoy, Occl[employer]ch and or [email or web address]. Substitutions may have occurred due to the [...] well, PVR today is 10 mL. Ordered: 33060 Measure Post Void residual urine and/or bladder capacity by US- non-imaging Urine Culture Urnls Dip Stick Auto w/o Microscopy POC 86682 2. Kidney stone (N20.0: Calculus of kidney) [...] additional KUB/R US given her history. Ordered: 78684 Measure Post Void residual urine and/or bladder capacity by US- non-imaging Urine Culture Urnls Dip Stick Auto w/o Microscopy POC 75773 US Renal XR Abdomen 1 View 3. [...] regarding OAB symptoms. -6 mos f/u Ordered: 65154 Measure Post Void residual urine and/or bladder capacity by US- non-imaging Urine Culture Urnls Dip Stick Auto w/o Microscopy POC 14654 4. Other urethral stricture, female (N35.82: Other urethral stricture, female) Cysto by (more content not included)... [facility] Comment on above: Result Comment: Elec tronically Signed By: DOROTHY Santillan APRN, Elana Contreras\.br\Date and Time Signed: 12/25/23 10:22 EDT 12-25-2023 [...] ? 8 oz (237 mL) of milk, wwfllqy-zlcaqvigtlbv-akpxf milk, and calcium-fortifiedfruit juice. Calcium-fortified means that [...] Spinach (cooked), rhubarb, beets, sweet potatoes, and Greenlandic chard. ? Peanuts. ? Potato chips, rwandan fries, and baked potatoes with skin on. ? Nuts and nut products. ? Chocolate. ? If you regularly take a diuretic medicine, make sure to eat at least 1 or 2 servings of fruits or vegetables that are high in potassium each day. These include: ? Avocado. ? Banana. ? [place], prune, carrot, or tomato juice. ? Baked [...] fish oil, or vitamin B6. ? Take evhr-jvn-snymvnf and prescription medicines only as told by your health care provider. These include suppleme (more content not included)... [facility] 10-23-2023 Evaluation + Plan note Extrac mike from: Title:ANES Post-operative Note---General Author: Pedrito Braun MD Date:10/23/23 Plan Transfer/Discharge: Transfer/Discharge Discharge when meets criteria ( To home ). Extracted from: Title:EU- [facility] Author:Aubrie Nolasco MD Date: 10/23/23 Impression and Plan Diagnosis Intrinsic sphincter deficiency (ISD) (NDT89-VT N36.42, Discharge, Medical). Diagnosis Intrinsic sphincter deficiency (ISD) (GDU98-AG N36.42, Discharge, Medical). Extracted from: Title:ANES Pre-operative Note 2022 Author:Pedrito Boles Date:10/23/23 Plan [place] Society of Anesthesiologists (ASA) physical status classification: Class II. Anesthetic Preoperative Plan: Anesthesia Monitored anethesia care. [facility]06-11-2024 Hospital Discharge instructions Patient Education 10/23/2023 11:43:04 Post Op Patient Instructions - FT (Custom) (CUSTOM) 10/23/2023 11:08:28 Lue - Bulk[facility] Post-Op Instructions (CUSTOM) [facility] [place], [place] Post-Operative Instructions for Bulkamid Congratulations on [...] may recommend a warm bath and/or an ngvj-wmv-yvowuzr pain medication to reduce discomfort. If you [...] physician for acomplete list of instructions. 2020 [employer]. All rights reserved. This material contains registered trademarks, trade names, and brand names of [employer]. [id number] 04/2021 [employer] , [place] [address] [email or web address] Follow Up Care 09/19/2023 10:55:44 With:Aubrie Nolasco Address: [facility] [address] [phone] Business (1) When: Unknown Comments:Office will call to schedule your follow up in 1 month with PVR [facility]05-22-2024 Note [id number] [facility] 09-05-2023 Evaluation + Plan note Diagnostic Tests Pending * Urine Culture 09/05/23 [facility]04-24-2024 Hospital Discharge instructions Patient Education 09/05/2023 [...] to have the catheter removed. Medicines Take ikmf-aaq-gknjfuw and prescription medicines only as told by [...] provider. Document Revised: 12/16/2020 Document Reviewed: 12/03/2020 [employer] Patient Education 2022 [employer]. 09/05/2023 11:57:48 Injection Treatments for Urinary Incontinence [...] including vitamins, herbs, eye drops, creams, and eglu-zbt-tldcoak medicines. Any problems you or family members [...] provider tells you to take them. Taking zcmx-lwl-cytduje medicines, vitamins, herbs, and supplements. General instructions [...] provider. Document Revised: 12/03/2020 Document Reviewed: 12/03/2020 [employer] Patient Education 2022 [employer]. Follow Up Care 06/13/2023 12:45:40 With:Gaurav MADRID, Aubrie Cho, URL, URO Address: [address], [place] [phone] When: Unknown Comments:amara Henderson [facility] [phone] Evaluation + Plan note Diagnostic Tests Pending * Urine Culture 06/05/23 [facility]01-23-2024 Hospital Discharge instructions Patient Education 06/05/2023 09:29:56 Flank Pain, Adult, Wluf-lw-Jvzr Flank Pain, Adult Flank pain is pain [...] Rest as told by your doctor. Take ipmh-res-nyzetcg and prescription medicines only as told by [...] away. Call your local emergency services (911 int [place] Do not wait to see if [...] provider. Document Revised: 07/11/2021 Document Reviewed: 07/11/2021 [employer] Patient Education 2022 [employer]. Follow Up Care 05/30/2023 14:24:53 With:KAILASH TOLEDO PA-C E, URL Address: [address] [place] [address] When: Unknown [facility] 06-19-2023 Evaluation + Plan noteExtracted from: Title:- [facility] Note Author:Aubrie Nolasco MD Date:10/30/22 Impression and Plan Assessment and Plan: Diagnosis: Intrinsic sphincter deficiency (ISD) (IIB30-GZ N36.42, Discharge, Medical), Mixed incontinence (YDY30-XQ N39.46, Working, Medical), Kidney stone (ARS42-BI N20.0, Discharge, Medical). 57 year old female [...] dietary modifications -Follow-up stone analysis results from [facility] -Patient has Litholink kit at home. [...] and procedures in caring for the patient. [facility]06-19-2023 Hospital Discharge instructions Patient Education 10/30/2022 [...] Up Care 10/27/2022 11:14:28 With:Aubrie Nolasco Address: [address] [place] [address] [phone] Business (1) [address], [address] [address]- [phone] Business (1) When: Unknown Comments:Office will schedule Bulkamid and follow up renal US in 6 wks [facility]05-31-2023 Hospital Discharge instructions Patient Education 10/11/2022 [...] (electrical nerve stimulation). ?For women, using a biomedical equipment support specialist to prevent urine leaks. This is [...] right after experiencing incontinence. General instructions Take hmnv-qyu-dnyttad and prescription medicines only as told by [...] important. Where to find more information National [place] of Diabetes and Digestive and Kidney Diseases: www.niddk.nih.gov [employer]: www.urologyhealth.org Contact a health care [...] provider. Document Revised: 12/03/2020 Document Reviewed: 12/03/2020 [employer] Patient Education 2022 [employer]. Follow Up Care 06/26/2022 12:58:55 With:Gaurav MADRID, AMBER Greco, URO Address: [address] [place] [address] [phone] When: Unknown Comments:sched rt uretero w/ possible stent [facility] 05-31-2023 NotePROCEDURE: XR KUB 1 VIEW [...] Electronically authenticated by: CLARISSA VILLALTA Date: 2022-10-11 07:26[facility] [id number] NotePROCEDURE: XR ANKLE LT MIN 3 V [...] authenticated by: BENI ORTIZ Date: 2022-08-02 11:20[facility] [id number] NotePROCEDURE: XR ANKLE LT MIN 3 V [...] Electronically authenticated by: JUDSON ENGLISH Date: 2022-07-27 16:35[facility]02-03-2023 Hospital Discharge instructions Patient Education 06/16/2022 [...] include: ?Spinach. ?Rhubarb. ?Beets. ?Potato chips and rwandan fries. ?Nuts. If you regularly take a diuretic medicine, make sure to eat at least 1 2 fruits or vegetables high in potassium each day. These include: ?Avocado. ?Banana. ?[place], prune, carrot, or tomato juice. ?Baked potato. [...] Casseroles. Pizza. Lasagna. Frozen meals. Potato chips. Egyptian fries. Summary You can reduce your risk [...] 08/25/2011 Document Revised: 08/20/2019 Document Reviewed: 04/10/2017 ElseUSGI Medical Patient Education 2020 [employer] Follow Up Care 06/15/2022 09:49:16 With:Gaurav MADRID, AMBER Greco, URO Address: When: Unknown [facility] 11-11-2022 Hospital Discharge instructions Patient Education 03/24/2022 14:51:05 Kidney Stones, Wahf-cv-Ujpm Kidney Stones Kidney stones are rock-like masses [...] Follow these instructions at home: Medicines Take dnyx-esk-yampvqr and prescription medicines only as told by [...] 10/16/2008 Document Revised: 09/16/2019 Document Reviewed: 09/16/2019 ElseUSGI Medical Patient Education 2019 [employer]. Follow Up Care 03/21/2022 12:53:12 With:Gaurav MADRID, AMBER Greco, URO Address: When: Unknown [facility] 03-29-2022 Hospital Discharge instructions Patient Education 08/09/2021 [...] fried and sweet foods. General instructions Take xhgf-ziy-traxqci and prescription medicines only as told by [...] 02/24/2010 Document Revised: 08/21/2019 Document Reviewed: 05/16/2018 [employer] Patient Education 2020 [employer] Follow Up Care 05/10/2021 12:57:15 With:Gino Saleh MD, Tracy Sexton, URO Address: When:3 months Comments:increased VESIcare/renal us and pvr [facility] evaluation + Plan note Future Appointments Appointment Date:11/08/2021 09:45:00 AM Scheduled Provider:Tracy Christian Jr., MD Location:[facility] Appointment Type:URO Office Visit [facility] evaluation + Plan note Future Appointments Appointment Date:10/23/2023 10:45:00 AM Scheduled Provider: Location:[facility] Future Appointments Appointment Date:10/23/2023 09:00:00 AM Scheduled Provider: Location:[facility] Future Appointments Appointment Date:06/25/2024 10:00:00 AM Scheduled Provider:Aubrie Nolasco MD Location:[facility] Appointment Type:URO Office Visit [facility] evaluation + Plan note Future Appointments Appointment Date:06/25/2024 10:00:00 AM Scheduled Provider:Aubrie Nolasco MD Location:[facility] Appointment Type:URO Office Visit Diagnostic Tests Pending * Urine Culture 12/25/23 [facility] Evaluation + Plan note Future Appointments Appointment Date:12/31/2024 08:00:00 AM Scheduled Provider:Aubrie Nolasco MD Location:[facility] Appointment Type:URO Office Visit [facility] Evaluation note* Diagnosis Lumbar radiculopathy- Primary Thoracic or lumbosacral neuritis or radiculitis, unspecified Lumbar pain Lumbago documented in this encounter [facility]* Diagnosis Pain in joint, multiple sites- Primary Joint stiffness Stiffness of joint, not elsewhere classified, unspecified site Pain in joint, multiple sites [facility] Diagnosis Severe episode of recurrent major depressive disorder, without psychotic features (CMS-HCC)- Primary Adjustment disorder with anxiety [facility] information available [facility] Work Phone: Hospital course Narrative No data available for this section [facility] Discharge instructions No data available for this section [facility]InstructionsNot on filedocumented in this encounter [facility] No data available for this section [facility] Reason for referral (narrative)* Diagnostic Procedure Only (Routine) - Closed Specialty Diagnoses / Procedures Referred By Contkarina t Referred To Contact XR IMAGING Diagnoses Pain in joint, multiple sites Procedures XR FOOT GENERAL 3V AP/LAT/OBL BILATERAL RADEX FOOT COMPLETE MINIMUM 3 VIEWS Olivia Corbett MD [address] [place] [address] Xr Imaging [place] [address] Referral ID Status Reason Start Date Expiration Date V isits Requested Visits Authorized [id number] Closed Auto-Generate d Referral 06/06/2024 07/06/2025 1 1 * Diagnostic Procedure Only (Routine) - Closed Specialty Diagnoses / Procedures Referred By Contac t Referred To Contact XR IMAGING Diagnoses Pain in joint, multiple sites Procedures XR HAND GENERAL 3V PA/LAT/OBL BILATERAL RADEX HAND MINIMUM 3 VIEWS Olivia Corbett MD [address] [place] [address] X[facility] Imaging [place] [address] Referral ID Status Reason Start Date Expiration Date V isits Requested Visits Authorized [id number] Closed Auto-Generate d Referral 06/06/2024 07/06/2025 1 1 [facility] Summary Purpose Family History No [...] No Family History Records Found Advance Directives Advance Directive Response Recorded Date/ Time Advance Directives No August 25 5:01pm Chief Complaint and Reason for Visit Chief Complaint Admit Date RUST August 25, 2024 11: 08pm Additional Source Comments Patient Care team informatio n (unrecognized section and content) Landcare Officer Relationship Specialty Start Date End Date Phillip Bruner MD [address] [place] [address] PCP - General Family Medicine 10/18/23 Landcare Officer Relationship Specialty Start Date End Date Phillip Bruner MD [address] [place] [address] PCP - General Family Medicine 10/18/23 Landcare Officer Relationship Specialty Start Date End Date Phillip Bruner MD [address] [facility] [place] [address] PCP - General 08/22/00 Landcare Officer Relationship Specialty Start Date End Date Phillip Bruner MD PCP - General Family Medicine 02/20/22 Team Status: Active Member Role Status Dates Phillip Bruner MD Primary Care Provider Active Team Status: Active Member Role Status Dates Phillip Bruner MD Primary Care Provider Active Start: August 25, 2024 Mayito Villatoro PA-C Emergency Provider Active Start: August 25, 2024 Warner Lentz MD Admit Provider, Atte nding Provider Active Start: August 25, 2024 Landcare Officer Relationship Specialty Start Date End Date Phillip Bruner MD [address] [place] [address] PCP - General 08/22/00 Landcare Officer Relationship Specialty Start Date End Date Phillip Bruner MD PCP - General Family Medicine 10/18/23 INFORMATION SOURCE (unrecogn ized section and content) DATE CREATED AUTHOR 10/21/2022 [facility] DATE CREATED AUTHOR AUTHOR'S ORGANIZ ATION 10/20/2023 [facility] DATE CREATED AUTHOR AUTHOR'S ORGANIZ ATION 12/31/2023 [facility] DATE CREATED AUTHOR AUTHOR'S ORGANIZ ATION 05/10/2024 [facility] DATE CREATED AUTHOR AUTHOR'S ORGANIZ ATION 07/04/2024 [facility] DATE CREATED AUTHOR AUTHOR'S ORGANIZ ATION 08/20/2024 [facility] DATE CREATED AUTHOR AUTHOR'S ORGANIZ ATION 09/05/2024 [facility] DATE CREATED AUTHOR AUTHOR'S ORGANIZ ATION 09/15/2024 [facility] DATE CREATED AUTHOR AUTHOR'S ORGANIZ ATION 11/06/2024 [facility] DATE CREATED AUTHOR AUTHOR'S ORGANIZ ATION 12/05/2024 [facility] Reason for Visit (unrecogniz ed section and content) Reason Comments Pain Source Comments (unrecognize d section and content) In the event this informatio n is protected by the Federal Confidentiality of Alcohol and Drug Abuse Patient Records regulations: The Federal rules restrict any use of the information to criminally investigate or prosecute any alcohol or drug abuse patient.[facility] the event this information is protected by the Federal Confidentiality of Alcohol and Drug Abuse Patient Records regulations: The Federal rules restrict any use of the information to criminally investigate or prosecute any alcohol or drug abuse patient.[facility] Goals (unrecognized section and content) Goals may be documented in a n alternate section FOR RECORDS PERTAINING TO PATIENTS WHO ARE [...] BE BASED ON THE PRIMARY CLINICAL RECORDS. [employer] [facility]. provides no warranty or guarantee of the accuracy or completeness of information in this document.
--- OUTSIDE RECORDS SUMMARY | 2024-12-29 06:47 | XMS_ITS | Clinical Summary ---
Author Organization [employer] [facility] Address [id number] [address] [place] [address] Care Team Providers Care Metal Bonding Worker Name Role Phone Bala Unger MD Primary Care Provider [phone] Allergies Active Allergy Reactions Criticality Noted Date Comments No Known Drug Allergies 11/23/2016 Medications * This document contains information received from the source organization and may not represent a complete record from that organization. CHOLECALCIFEROL, VITAMIN D3, (VITAMIN D3 ORAL) Take by mouth. Active metoprolol tartrate (LOPRESSOR) 50 mg tablet Take 50 mg by mouth 2 (two) times a day. 11 11/30/2018 Active ondansetron (ZOFRAN) 4 mg tablet Take 1 tablet (4 mg total) by mouth 2 (two) times a day as needed for nausea. 20 tablet 03/30/2022 Active amitriptyline (ELAVIL) 50 mg tablet 08/15/2024 Active hydrOXYzine (ATARAX) 25 mg tablet Take 1 tablet (25 mg total) by mouth every 6 (six) hours as needed for anxiety. 09/01/2024 Active ARIPiprazole (ABILIFY) 5 mg tabletIndication s:Severe episode of recurrent major depressive disorder, without psychotic features (CMS-HCC) Take 1 tablet (5 mg total) by mouth in the morning. 90 tablet 3 11/04/2024 Active desvenlafaxine (PRISTIQ) 100 mg 24 hr tabletIndication s:Severe episode of recurrent major depressive disorder, without psychotic features (CMS-HCC) Take 1 tablet (100 mg total) by mouth in the morning. 90 tablet 3 11/04/2024 Active Active Problems Problem Noted Date Diagnosed Date Adjustment disorder with anxiety 11/07/2018 Severe episode of recurrent major depressive disorder, without psychotic features 05/10/2017 Social History Tobacco Use Types Packs/Day Years Used Date Smoking Tobacco: Never Assessed Childcare Answer Date Recorded Childcare Unknown 10/23/2018 Employment Answer Date Recorded Employment Unknown 10/23/2018 Purpose - Life Answer Date Recorded Purpose and direction in life Unknown Comments Unknown Sex and Gender Information Value Date Recorded Sex Assigned at Female 04/01/2024 8:32 PM EST Legal Sex Female 11:24 AM EDT Gender Identity Female 04/01/2024 8:32 PM EST Sexual Orientation Straight 04/01/2024 8: 32 PM EST Plan of Treatment Health Maintenance Due Date Last Done Comments Depression Screening 1975 Tobacco Screening 1975 Adult BMI Screening 1981 Pap Smear 01/27/1984 Zoster (Shingles) Vaccine (1 of 2) 2013 COVID-19 Vaccine (2023-2 5 season) 2024 03/09/2021, 06/11/2020, 06/09/2020, Additional history exists Influenza Vaccine 01/12/2025 03/14/2022, , 03/10/2021, Additional history exists DTaP,Tdap and Td Vaccines (2 - Td or Tdap) 03/01/2026 03/01/2016 Medical Devices Not on file Insurance [employer]M Care Teams Metal Bonding Worker Relationship Specialty Start Date End Date Bala Unger MD PCP - General Family Medicine 02/20/22
--- OUTSIDE RECORDS SUMMARY | 2024-12-29 06:47 | XMS_ITS | Encounter Summary ---
Author Organization [facility] Address [address] [place] [address] Care Team Providers Care Semiautomatic Taper Operator Name Role Phone Bala Unger MD Primary Care Provider [phone] Source Comments In the event this information is protected by the Federal Confidentiality of Alcohol and Drug AbusePatient Records regulations: The Federal rules restrict any use of the information to criminally investigate or prosecute any alcohol or drug abuse patient.[facility] Encounter Details Date Type Department Care Team (Late st Contact Info) Description 08/31/2014 Patient Msg Medical Records [address] [place] [address] Provider, [facility] 24 hr urine tests Social History Tobacco Use Types Packs/Day Years Used Date Smoking Tobacco: Never Smokeless Tobacco: Never Alcohol Use Standard Drinks/Week Comments No 0 (1 standard drink = 0.6 oz pur e alcohol) Comments No Sex and Gender Information Value Date Recorded Sex Assigned at Not on file Legal Sex Female 9:27 AM EST Gender Identity Not on file Sexual Orientation Not on file 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 Answer Date of Assessment Author No 08/27/2014 10:12 AM Rebecca Bowden RN * Are you blind or do you have serious difficulty seeing, even when wearing glasses? Answer Date of Assessment Author No 08/27/2014 10:12 AM Rebecca Bowden RN * Do you have serious difficulty walking or climbing stairs? Answer Date of Assessment Author No 08/27/2014 10:12 AM Rebecca Bowden RN * Do you have difficulty dressing or bathing? Answer Date of Assessment Author No 08/27/2014 10:12 AM Rebecca Bowden RN * Because of a physical, mental, or emotional condition, do you have difficulty doing errands alone such as visiting a doctor's office or shopping? Answer Date of Assessment Author No 08/27/2014 10:12 AM Rebecca Bowden RN documented as of this encounter Mental Status * Because of a physical, mental, or emotional condition, do you have serious difficulty concentrating, remembering, or making decisions? Answer Entry Date Author No 08/27/2014 10:12 AM Rebecca Bowden RN documented in this encounter Plan of Treatment Not on file documented as of this encounter Visit Diagnoses Not on filedocumented in this encounter Care Teams Semiautomatic Taper Operator Relationship Specialty Start Date End Date Bala Unger MD [address] [place] [address] PCP - General 08/22/00 documented as of this encounter
--- OUTSIDE RECORDS SUMMARY | 2024-12-29 06:47 | XMS_ITS | Encounter Summary ---
Author Organization [facility] Address [address] [place], [place] [id number] Care Team Providers Care Fitting Room Associate Name Role Phone Bala Unger MD Primary Care Provider [phone] Source Comments In the event this information is protected by the Federal Confidentiality of Alcohol and Drug AbusePatient Records regulations: The Federal rules restrict any use of the information to criminally investigate or prosecute any alcohol or drug abuse patient.[facility] Encounter Details Date Type Department Care Team (Late st Contact Info) Description 01/07/2015 Patient Msg Medical Records [address] [place], [place] [id number] Provider, [facility] Preop instructions for surgery with Dr. 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 Answer Date of Assessment Author No 11/16/2014 3:04 PM EDT Reymundo Quinn, PCNA * Are you blind or do you have serious difficulty seeing, even when wearing glasses? Answer Date of Assessment Author No 11/16/2014 3:04 PM EDT Reymundo Quinna, PCNA * Do you have serious difficulty walking or climbing stairs? Answer Date of Assessment Author No 11/16/2014 3:04 PM EDT Reymundo Quinn, PCNA * Do you have difficulty dressing or bathing? Answer Date of Assessment Author No 11/16/2014 3:04 PM EDT Reymundo Quinna, PCNA * Because of a physical, mental, or emotional condition, do you have difficulty doing errands alone such as visiting a doctor's office or shopping? Answer Date of Assessment Author No 11/16/2014 3:04 PM EDT Reymundo Quinn, PCNA documented as of this encounter Mental Status * Because of a physical, mental, or emotional condition, do you have serious difficulty concentrating, remembering, or making decisions? Answer Entry Date Author No 11/16/2014 3:04 PM EDT Reymundo Quinn, PCNA documented in this encounter Plan of Treatment Not on file documented as of this encounter Visit Diagnoses Not on filedocumented in this encounter Care Teams Fitting Room Associate Relationship Specialty Start Date End Date Bala Unger MD [address] [place] [address] PCP - General 08/22/00 documented as of this encounter
--- OUTSIDE RECORDS SUMMARY | 2024-12-29 06:47 | XMS_ITS | Clinical Summary ---
Author Organization [facility] Healthcare Address [address] [place] [address] Care Team Providers Care Assembler Name Role Phone Bala Unger MD Primary Care Provider [phone] Allergies No known active allergies Medications celecoxib (CeleBREX) 200 MG capsule 1 (one) time each day at the same time 3 Active ARIPiprazole (Abilify) 2 MG tablet Take 1 tablet by mouth every day for 90 days Active cholecalciferol (Vitamin D-3) 50 MCG (1999) capsule 1 capsule 1 (one) time each day at the same time Active escitalopram (Lexapro) 20 MG tablet Take 20 mg by mouth Daily 3 Active Lopressor 50 MG tablet 1 (one) time each day at the same time Active estradiol (Estrace) 0.1 MG/GM vaginal creamIndications :Postmenopausal state,Pain in female genitalia on intercourse Apply 1/2 APPLICATOR daily for 2 weeks; then twice weekly thereafter. 42.5 g 3 4 Active desvenlafaxine (Pristiq) 50 MG 24 hr tablet Take 50 mg by mouth in the morning. 4 Active mirtazapine (Remeron) 30 MG tablet Take 30 mg by mouth at bedtime 4 Active Active Problems Problem Noted Date Diagnosed Date Adjustment disorder with anxiety 11/07/2018 Severe episode of recurrent major depressive disorder, without psychotic features 05/10/2017 Calculus of kidney 06/11/2014 Osteopenia 06/11/2014 Encounters Date Type Department Care Team Description 12/23/2024 Clinisync Result Encounter [facility] External Department Unsolicited Adi Hammer DO from Last 3 Months Immunizations Immunization Administration Dates Next Due Influenza, Unspecified 02/13/2022,03/10/2021 Influenza, seasonal, injectable 02/25/2020 Novel [id number], preservative-free 03/24 Pneumococcal Polysaccharide PPSV23 05/14/2011 Tdap 03/01/2016 Family History Relation Name Status Comments Father Mother Social History Tobacco Use Types Packs/Day Years Used Date Smoking Tobacco: Never Smokeless Tobacco: Never Tobacco Cessation:Counseling Given: Not Answered Alcohol Use Standard Drinks/Week Comments Not Currently 0 (1 standard drink = 0.6 oz pur e alcohol) Comments No Sex and Gender Information Value Date Recorded Sex Assigned at Not on file Legal Sex Female 6:56 PM EDT Gender Identity Not on file Sexual Orientation Not on file Last Filed Vital Signs Vital Sign Reading Time Taken Comments Blood Pressure 128/78 10/18/2023 11:47 AM EDT Pulse - - Temperature - - Respiratory Rate - - Oxygen Saturation - - Inhaled Oxygen Concentration - - Weight 74.8 kg (165 lb) 05/05/2024 2:11 PM EST Height 165.1 cm (5' 5 ) 05/05/2024 2:11 PM EST Body Mass Index 27.46 05/05/2024 2:11 PM EST Plan of Treatment Health Maintenance Due Date Last Done Comments CT Colonography 1965 Colonoscopy 1965 Colorectal Cancer Screening 1965 FIT-DNA 1965 FIT 1963 FOBT 1965 Sigmoidoscopy 1963 Pap Smear 01/27/1984 Cervical Cancer Screening 1993 HPV/Cotest 1993 Influenza Vaccine (#1) 2025 02/13/2022, 2020, 02/25/2020 Mammogram 12/23/2025 12/23/2024 Procedures Procedure Name Priority Date/Time Associated Diagnosis Comments MM TOMOSYNTHESIS SCREENING BI 12/23/2024 4:10 PM EDT from Last 3 Months Results * MM TOMOSYNTHESIS SCREENING BI (12/23/2024 4:10 PM EDT) Anatomical Region Laterality Modality Other 12/23/2024 4:10 PM EDT Narrative 12/23/2024 4:11 PM EDT The [address] [address] Mammography Report Signed Patient: ELI BOYCE MR#: [id number] : 1965 Acct:[id number] Age/Sex: 59 / F ADM Date: 12/23/24 Loc: MAMMO Attending Dr: Adi Hammer D.O. Ordering Physician: Adi Hammer D.O. Results: Date of Service: 12/23/24 Follow Up: Procedure(s): MM tomosynthesis screening BI Accession Number(s): [id number] cc: Adi Hammer D.O.; Bala Unger M.D. Patient Name: ELI BOYCE MR#: [id number] : 1965 Exam Date: 12/23/2024 Ordering Doctor: DR ADI HAMMER . RADIOLOGY REPORT PROCEDURE: MM TOMOSYNTHESIS [...] colon cancer at age 71. LOCATION: The [facility] BREAST COMPOSITION: The breasts are heterogeneously dense, [...] Dictated By: Graeme Rutherford M.D. Signed By: 12/23/241610 DD/ 09 TD/TT: Suction Worker: Procedure Note Radiology, Radiologist, MD - 12/23/2024 [place] [address] Mammography Report Signed Patient: ELI BOYCE KMR#: [id number] : 1965Acct:[id number] Age/Sex: 59 / FADM Date: 12/23/24 Loc: MAMMO Attending Dr: Adi Hammer D.O. Ordering Physician: Adi Hammer D.O.Results: Date of Service: 12/23/24Follow Up: Procedure(s): MM tomosynthesis screening BI Accession Number(s): [id number] cc: Adi Hammer D.O.; Bala Unger M.D. Patient Name: ELI BOYCE MR#: [id number] : 1965 Exam Date: 12/23/2024 Ordering Doctor: DR ADI HAMMER . RADIOLOGY REPORT PROCEDURE: MM TOMOSYNTHESIS SCREENING BI COMPARISON: MG MAMM SCREEN JEN W CAD, 04/22/2019. MG MAMM SCREEN BILW CAD, 04/11/2018. MG MAMM SCREEN JEN W CAD, 02/23/2017. MG MAMM JEN SCRNW CAD DIG, 12/25/2013. INDICATIONS: SCREENING FOR MALIGNANCY OF BREASTS Calculator Name NCI Breast Cancer Risk Assessment Tool 5 Year Breast Cancer Risk 2.30% Lifetime Breast Cancer Risk 10.60% Personal Breast Cancer No Personal Ovarian Cancer No Treatments None Family Cancers Grandmother-maternal with colon cancer at age 80;Mother with colon cancer at age 73. LOCATION: The [facility] BREAST COMPOSITION: The breasts are heterogeneously dense, which may obscure small masses. FINDINGS: DIAGNOSTIC CATEGORY 1--NEGATIVE. RIGHT BREAST: No significant suspicious finding. LEFT BREAST: No significant suspicious finding. RECOMMENDATIONS: ROUTINE MAMMOGRAM AND CLINICAL EVALUATION IN 12 MONTHS. PLEASE NOTE: A NORMAL MAMMOGRAM DOES NOT EXCLUDE THE POSSIBILITY OFBREAST CANCER. A CLINICALLY SUSPICIOUS PALPABLE LUMP SHOULD BE BIOPSIED. Dictated by: Graeme Rutherford DO on 12/23/2024 at 16:09 Approved by: Graeme Rutherford DO on 12/23/2024 at 16:10 Dictated By: Graeme Rutherford M.D. Signed By:12/23/241610 DD/ 09 TD/TT: Suction Worker: Adi Hammer DO [facility] Final Result from Last 3 Months Insurance BCBS Care Teams Assembler Relationship Specialty Start Date End Date Bala Unger MD PCP - General Family Medicine 10/18/23
--- OUTSIDE RECORDS SUMMARY | 2024-12-29 06:47 | XMS_ITS | Encounter Summary ---
Author Organization [facility] Address [address] [place] [address] Care Team Providers Care Hydraulic Governor Assembler Name Role Phone Bala Unger MD Primary Care Provider [phone] Encounter Details Date Type Department Care Team (Late st Contact Info) Description 12/23/2024 Clinisync Result Encounter [facility] External Department Unsolicited Adi Hammer, DO [address] [facility] [place] [address] Social History Tobacco Use Types Packs/Day Years Used Date Smoking Tobacco: Never Smokeless Tobacco: Never Alcohol Use Standard Drinks/Week Comments Not Currently 0 (1 standard drink = 0.6 oz pur e alcohol) Comments No Sex and Gender Information Value Date Recorded Sex Assigned at Not on file Legal Sex Female 6:56 PM EDT Gender Identity Not on file Sexual Orientation Not on file documented as of this encounter Plan of Treatment Not on file documented as of this encounter Procedures Procedure Name Priority Date/Time Associated Diagnosis Comments MM TOMOSYNTHESIS SCREENING BI 12/23/2024 4:10 PM EDT documented in this encounter Results * MM TOMOSYNTHESIS SCREENING BI (12/23/2024 4:10 PM EDT) Anatomical Region Laterality Modality Other 12/23/2024 4:10 PM EDT Narrative 12/23/2024 4:11 PM EDT The [address] [address] Mammography Report Signed Patient: ELI BOYCE MR#: [id number] : 1965 Acct:[id number] Age/Sex: 59 / F ADM Date: 12/23/24 Loc: MAMMO Attending Dr: Adi Hammer D.O. Ordering Physician: Adi Hammer D.O. Results: Date of Service: 12/23/24 Follow Up: Procedure(s): MM tomosynthesis screening BI Accession Number(s): [id number] cc: Adi Hammer D.O.; Bala Unger M.D. Patient Name: ELI BOYCE MR#: [id number] : 1965 Exam Date: 12/23/2024 Ordering Doctor: [...] colon cancer at age 71. LOCATION: The [facility] BREAST COMPOSITION: The breasts are heterogeneously dense, [...] Signed By: 12/23/24 161 DD/ 09 TD/TT: Credit Processor: Procedure Note Radiology, Radiologist, MD - 12/23/2024 [place] [address] Mammography Report Signed Patient: ELI BOYCE KMR#: [id number] : 1965Acct:[id number] Age/Sex: 59 / FADM Date: 12/23/24 Loc: MAMMO Attending Dr: Adi Hammer D.O. Ordering Physician: Adi Hammer D.O.Results: Date of Service: 12/23/24Follow Up: Procedure(s): MM tomosynthesis screening BI Accession Number(s): [id number] cc: Adi Hammer D.O.; Bala Unger M.D. Patient Name: ELI BOYCE MR#: [id number] : 1965 Exam Date: 12/23/2024 Ordering Doctor: [...] colon cancer at age 71. LOCATION: The [facility] BREAST COMPOSITION: The breasts are heterogeneously dense, [...] 16:10 Dictated By: Graeme Rutherford M.D. Signed By:12/23/24 1611 DD/ 09 TD/TT: Credit Processor: us Adi Hammer DO [facility] Final Result documented in this encounter Visit Diagnoses Not on filedocumented in this encounter Care Teams Hydraulic Governor Assembler Relationship Specialty Start Date End Date Bala Unger MD PCP - General Family Medicine 10/18/23 documented as of this encounter
--- OUTSIDE RECORDS SUMMARY | 2024-12-29 06:47 | XMS_ITS | Encounter Summary ---
Author Organization [facility] Address [address] [place], [place] [address] Care Team Providers Care Loan Workout Officer Name Role Phone Bala Unger MD Primary Care Provider [phone] Source Comments In the event this information is protected by the Federal Confidentiality of Alcohol and Drug AbusePatient Records regulations: The Federal rules restrict any use of the information to criminally investigate or prosecute any alcohol or drug abuse patient.[facility] Encounter Details Date Type Department Care Team (Late st Contact Info) Description 04/01/2014 Get Medical Advice Rheumatology [address] [place] [address] Reilly Alfaro MD [address] [place] [address] RE: Non-Urgent Medical Question Social History Tobacco Use Types Packs/Day Years [...] 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 Answer Date of Assessment Author No 03/09/2014 7:00 AM Keith Esposito MA * Are you blind or do you have serious difficulty seeing, even when wearing glasses? Answer Date of Assessment Author No 03/09/2014 7:00 AM Keith Esposito MA * Do you have serious difficulty walking or climbing stairs? Answer Date of Assessment Author No 03/09/2014 7:00 AM Keith Esposito MA * Do you have difficulty dressing or bathing? Answer Date of Assessment Author No 03/09/2014 7:00 AM Keith Esposito MA * Because of a physical, mental, or emotional condition, do you have difficulty doing errands alone such as visiting a doctor's office or shopping? Answer Date of Assessment Author No 03/09/2014 7:00 AM Keith Esposito MA documented as of this encounter Mental Status * Because of a physical, mental, or emotional condition, do you have serious difficulty concentrating, remembering, or making decisions? Answer Entry Date Author No 03/09/2014 7:00 AM Keith Esposito MA documented in this encounter Plan of Treatment Not on file documented as of this encounter Visit Diagnoses Not on filedocumented in this encounter Care Teams Loan Workout Officer Relationship Specialty Start Date End Date Bala Unger MD [address] [place] [address] PCP - General 08/22/00 documented as of this encounter
--- OUTSIDE RECORDS SUMMARY | 2024-12-29 06:47 | XMS_ITS | Patient Health Record ---
Author Organization [facility] Address [address] [place] [address] Care Team Providers Care Service Car Driver Name Role Phone Cornel Bala Primary Care Provider Galindo Macias Unavailable [phone] Reason For Referral No Information Social History Tobacco Use: Social History Observation Description Date Details (start date - stop date) Never Smoker NA - NA Smoking History Question Answer Notes Smoking Status NonSmoker AUDIT-C (Standard) Question Answer Notes Did you have a drink containing alcohol in the p ast year? No Plan Of Treatment No Information Insurance Providers Payer Name Payer Address Payer Phone Subscriber Number Group Number Insured Name Patient Relationship to Insured Coverage Start Date Coverage End Date [facility] ([place], [place]) [address] [place] [phone] [id number] CARMELO CHUNG Self - patient is the insured Medical (General) History Medical History History ICD Code Anxiety: Yes Chronic back pain:: Yes CPAP Machine:: No Depression: Yes Endometriosis: Yes Fibromyalgia: Yes Gastric Reflux: Yes GI Problems: : Yes Healthcare worker: Yes High Blood Pressure: Yes Irritable bowel syndrome: Yes Kidney stones: Yes Latex Allergy: No Osteoarthritis: Yes Osteoporosis: Yes Ovarian Cysts: Yes Rheumatoid arthritis: Yes Seen a Psychiatrist: Yes Have you been in close conta ct with someone who has had MRSA within the last year?: No Have you ever had or presently have MRSA ?: No Have you been seen by a dentist in the l ast year?: Yes Do you have any dental probl ems i.e. Broken, loose, or chipped teeth, absess, gum disease?: No
--- OUTSIDE RECORDS SUMMARY | 2024-12-29 06:47 | XMS_ITS | Encounter Summary ---
Author Organization [facility] Address [address] [place], [place] [address] Care Team Providers Care Regional Property Manager Name Role Phone Bala Unger MD Primary Care Provider [phone] Source Comments In the event this information is protected by the Federal Confidentiality of Alcohol and Drug AbusePatient Records regulations: The Federal rules restrict any use of the information to criminally investigate or prosecute any alcohol or drug abuse patient.[facility] Encounter Details Date Type Department Care Team (Late st Contact Info) Description 12/31/2014 Patient Msg Medical Records [address] [place], [place] [id number] Provider, [facility] UROLOGY PRE OP/SURGERY INSTRUCTIONS Social History Tobacco Use Types Packs/Day Years [...] 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 Answer Date of Assessment Author No 11/16/2014 3:04 PM EDT Kai, Fa shantal, PCNA * Are you blind or do you have serious difficulty seeing, even when wearing glasses? Answer Date of Assessment Author No 11/16/2014 3:04 PM EDT Reymundo Quinn, PCNA * Do you have serious difficulty walking or climbing stairs? Answer Date of Assessment Author No 11/16/2014 3:04 PM EDT Reymundo Quinn, PCNA * Do you have difficulty dressing or bathing? Answer Date of Assessment Author No 11/16/2014 3:04 PM EDT Reymundo Quinn, PCNA * Because of a physical, mental, or emotional condition, do you have difficulty doing errands alone such as visiting a doctor's office or shopping? Answer Date of Assessment Author No 11/16/2014 3:04 PM EDReymundo Gomez PCNA documented as of this encounter Mental Status * Because of a physical, mental, or emotional condition, do you have serious difficulty concentrating, remembering, or making decisions? Answer Entry Date Author No 11/16/2014 3:04 PM EDReymundo Gomez PCNA documented in this encounter Plan of Treatment Not on file documented as of this encounter Visit Diagnoses Not on filedocumented in this encounter Care Teams Regional Property Manager Relationship Specialty Start Date End Date Bala Unger MD [address] [place] [address] PCP - General 08/22/00 documented as of this encounter
--- OUTSIDE RECORDS SUMMARY | 2024-12-29 06:47 | XMS_ITS | Encounter Summary ---
Author Organization [facility] Address [address] [place] [address] Care Team Providers Care Multimedia Specialist Name Role Phone Bala Unger MD Primary Care Provider [phone] Source Comments In the event this information is protected by the Federal Confidentiality of Alcohol and Drug AbusePatient Records regulations: The Federal rules restrict any use of the information to criminally investigate or prosecute any alcohol or drug abuse patient.[facility] Encounter Details Date Type Department Care Team (Late st Contact Info) Description 06/09/2014 Patient Msg Medical Records [address] [place] [address] Provider, [facility] Kidney stones Social History Tobacco Use Types Packs/Day Years [...] 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
--- OUTSIDE RECORDS SUMMARY | 2024-12-29 06:47 | XMS_ITS | Encounter Summary ---
Author Organization [facility] Address [address] [place], [place] [address] Care Team Providers Care Coat Baster Name Role Phone Bala Unger MD Primary Care Provider [phone] Source Comments In the event this information is protected by the Federal Confidentiality of Alcohol and Drug AbusePatient Records regulations: The Federal rules restrict any use of the information to criminally investigate or prosecute any alcohol or drug abuse patient.[facility] Encounter Details Date Type Department Care Team (Late st Contact Info) Description 06/22/2014 Patient Msg Medical Records [address] [place], [place] [phone] Provider, [facility] CD Social History Tobacco Use Types Packs/Day Years [...] 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 Answer Date of Assessment Author No 06/11/2014 3:49 PM Piero Ovalle * Are you blind or do you have serious difficulty seeing, even when wearing glasses? Answer Date of Assessment Author No 06/11/2014 3:49 PM Piero Ovalle * Do you have serious difficulty walking or climbing stairs? Answer Date of Assessment Author Yes 06/11/2014 3:49 PM Piero Ovalle * Do you have difficulty dressing or bathing? Answer Date of Assessment Author No 06/11/2014 3:49 PM Piero Ovalle * Because of a physical, mental, or emotional condition, do you have difficulty doing errands alone such as visiting a doctor's office or shopping? Answer Date of Assessment Author No 06/11/2014 3:49 PM Piero Ovalle documented as of this encounter Mental Status * Because of a physical, mental, or emotional condition, do you have serious difficulty concentrating, remembering, or making decisions? Answer Entry Date Author Yes 06/11/2014 3:49 PM Piero Ovalle documented in this encounter Plan of Treatment Not on file documented as of this encounter Visit Diagnoses Not on filedocumented in this encounter Care Teams Coat Baster Relationship Specialty Start Date End Date Bala Unger MD [address] [place] [phone] PCP - General 08/22/00 documented as of this encounter
--- OUTSIDE RECORDS SUMMARY | 2024-12-29 06:47 | XMS_ITS | Patient Health Record ---
Author Organization [facility] [place] Address [address] [place] [address] Care Team Providers Care Envelope Folding Machine Adjuster Name Role Phone Adam Bruner Primary Care Provider [phone] YasmeenBisi venegasela Unavailable [phone] Allergies No Known Allergies Results Component Value Reference Range Notes MM tomosynthesis screening B I Reviewed date:12/23/2024 08:21:27 PM Interpretation: Performing Lab: Notes/Report: Source Facility: [place] [address] Mammography Report Signed Patient: ELI BOYCE MR#: [id number] : 1965 Acct:[id number] Age/Sex: 59 / F ADM Date: 12/23/24 Loc: MAMMO Attending Dr: Adi Hammer D.O. Ordering Physician: Adi Hammer D.O. Results: Date of Service: 12/23/24 Follow Up: Procedure(s): MM tomosynthesis screening BI Accession Number(s): [id number] cc: Adi Hammer D.O.; Phillip Bruner M.D. Patient Name: ELI BOYCE MR#: [id number] : 1965 Exam Date: 12/23/2024 Ordering Doctor: [...] colon cancer at age 71. LOCATION: [facility] BREAST COMPOSITION: The breasts are [...] By: Graeme Rutherford M.D. Signed By: 12/23/24 1611 DD/ 1610 TD/TT: Silviculture Professor: [place] [address] Mammography Report Signed Patient: MISTY BOYCE MR#: [id number] : 1965 Acct:[id number] Age/Sex: 59 / F ADM Date: 12/23/24 Loc: MAMMO Attending Dr: Adi Hammer D.O. Ordering Physician: Adi Hammer D.O. Results: Date of Service: 12/23/24 Follow Up: Procedure(s): MM tomosynthesis screening BI Accession Number(s): [id number] cc: Adi Hammer D.O. ; Phillip Bruner M.D. Patient Name: ELI BOYCE MR#: [id number] : 1965 Exam Date: 12/23/2024 Ordering Doctor: DR ADI HAMMER . RADIOLOGY REPORT PROCEDURE: MM TOMOSYNTHESIS SCREENING BI COMPARISON: MG MAMM SCREEN JEN W CAD, 04/22/2019. MG MAMM SCREEN JEN W CAD, 04/11/2018. MG MAMM SCREEN JEN W CAD, 02/23/2017. MG MAMM JEN SCRN W CAD DIG, 12/25/2013. INDICATIONS: SCREENI NG FOR MALIGNANCY OF BREASTS Calculator Name NCI Breast Cancer Risk Assessment Tool 5 Year Breast Cancer Risk 2.30% Lifetime Breast Canc er Risk 10.60% Personal Breast Canc er No Personal Ovarian Can cer No Treatments None Family Cancers Grandmother-maternal with colon cancer at age 80; Mother with colon cancer at age 73. LOCATION: [facility] BREAST COMPOSITION: The breasts are heterogeneously dense, which may obscure small masses. FINDINGS: DIAGNOSTIC CATEGORY 1--NEGATIVE. RIGHT BREAST: No significant suspicious finding. LEFT BREAST: No significant suspicious finding. RECOMMENDATIONS: ROUTINE MAMMOGRAM AN D CLINICAL EVALUATION IN 12 MONTHS. PLEASE NOTE: A LANNY L MAMMOGRAM DOES NOT EXCLUDE THE POSSIBILITY OF BREAST CANCER. A CLINICALLY SUSPICIOUS PALPABLE LUMP SHOULD BE BIOPSIED. Dictated by: Graeme Rutherford DO on 12/23/2024 at 16:09 Approved by: Graeme Rutherford DO on 12/23/2024 at 16:10 Dictated By: Graeme Rutherford M.D. Signed By: 12/23/24 1611 DD/ 1610 TD/TT: Silviculture Professor: UA (Urinalysis, Dipstix only - w/o micro) Reviewed date:11/24/2024 12:49:49 PM Interpretation: Performing Lab: Notes/Report: COLOR yellow Yellow - Patricia - CLARITY clear Clear - Clear GLUCOSE NEG 0 - 133 MG/DL ALBUMIN NEG NEG - NEG MG/DL BILIRUBIN NEG NEG - NEG MG/DL SPECIFIC GRAVITY 1.010 1.001 - 1.035 KETONES NEG NEG - NEG MG/DL BLOOD, UR TRACE PH, UR 7 5 - 9 UROBILNOGEN NEG 0.2 - 1 MG/DL NITRITE NEG NEG - NEG ESTERASE (THERESA) TRACE NEG - NEG MG/DL COVID-19, Flu A+B IH Reviewed date:08/17/2024 03:56:45 PM Interpretation: Performing Lab: Notes/Report: COVID NEG FLU A NEG FLU B NEG Control present UA DIP NONAUTO WO MICRO (810 02) - IN OFFICE Reviewed date:08/17/2024 03:56:45 PM Interpretation: Performing Lab: Notes/Report: COLOR yellow CLARITY clear GLUCOSE neg BILIRUBIN neg KETONE neg SPECIFIC GRAVITY 1.020 BLOOD trace PH 7.0 PROTEIN neg UROBILINOGEN neg NITRITE neg LEUKOCYTE ESTERASE neg XR abdomen 1V Reviewed date:11/24/2024 12:49:49 PM Interpretation: Performing Lab: Notes/Report: Source Facility: [place] [address] [place] [address] XRay Report Signed Patient: ELI BOYCE MR#: [id number] : 1965 Acct:[id number] Age/Sex: 59 / F ADM Date: 11/24/24 Loc: RAD Attending Dr: Phillip Bruner M.D. Ordering Physician: Phillip Bruner M.D. Date of Service: 11/24/24 Procedure(s): XR abdomen 1V Accession Number(s): [id number] cc: Phillip Bruner M.D. [place] [address] Patient Name: ELI BOYCE MRN: [id number] date: 1965 Sex: F Assigned Patient Location: [facility] Current Patient Location: [facility] Accession/Order Number: [id number] Exam Date: 11/24/2024 11:57 Report Date: 11/24/2024 12:01 At the request of: PHILLIP BRUNER MD Procedure: XR abdomen 1V SINGLE VIEW ABDOMEN CLINICAL DATA: Chronic kidney stones and left mid back pain. COMPARISON: CT 07/29/2023 Supine views of the abdomen and pelvis were obtained. There is small and large bowel air, without disproportionate distention. There is stool within the colon. Both kidneys are partially obscured. Capsule-shaped densities at the right abdomen may be medicinal. There is also a tiny potential 3 mm calcification that could be a renal stone. No convincing radiopaque calculi are seen on the left or along the course of the ureter. There is a left pelvic phlebolith. No soft tissue masses are seen. There is levoscoliotic curvature. Patient is status post prior cholecystectomy. XR/XR abdomen 1V IMPRESSION: SLIGHT LIMITED STUDY DUE TO BOWEL GAS AND STOOL. POTENTIAL TINY RIGHT RENAL STONE. Impression dictated by: Claudine Heard M.D. 11/24/2024 12:01 PM Dictation Location: [place] [address] Electronically authenticated by: [id number] Y Date: 11/24/2024 12:01 Dictated By: Claudine Heard M.D. Signed By: 11/24/24 1203 DD/ 1201 TD/TT: Silviculture Professor: [place] [address] XRay Report Signed Patient: MISTY BOYCE MR#: [id number] : 1965 Acct:[id number] Age/Sex: 59 / F ADM Date: 11/24/24 Loc: RAD Attending Dr: Bryan Bruner M.D. Ordering Physician: Phillip Bruner M.D. Date of Service: 11/24/24 Procedure(s): XR abd omen 1V Accession Number(s): [id number] cc: Phillip Bruner M.D. [place] [address] Patient Name: ELI BOYCE MRN: [id number] date: 1965 Sex: F Assigned Patient Location: [facility] Current Patient Location: [facility] Accession/Order Numb er: [id number] Exam Date: 11/24/2024 11:57 Report Date: 11/24/2024 12:01 At the request of: PHILLIP BRUNER MD Procedure: XR abdomen 1V SINGLE VIEW ABDOMEN CLINICAL DATA: Chron ic kidney stones and left mid back pain. COMPARISON: CT 07/29/2023 Supine views of the abdomen and pelvis were obtained. There is small and large bowel air, wit hout disproportionate distention. There is stool within the colon. Both kidn eys are partially obscured. Capsule-shaped densities at the right abdomen ma y be medicinal. There is also a tiny potential 3 mm calcification that c ould be a renal stone. No convincing radiopaque calculi are seen on the left or along the course of the ureter. There is a left pelvic phlebolith. N o soft tissue masses are seen. There is levoscoliotic curvature. Patient i s status post prior cholecystectomy. X R/XR abdomen 1V IMPRESSION: SLIGHT LIMITED STUDY DUE TO BOWEL GAS AND STOOL. POTENTIAL TINY RIGHT RENAL STONE. Impression dictated by: Claudine Heard M.D. 11/24/2024 12:01 PM Dictation Location: [place] [address] Electronically authenticated by: [id number] Y Date: 11/24/2024 12:01 Dictated By: Claudine Heard M.D. Signed By: 11/24/24 1203 DD/ 1201 TD/TT: Silviculture Professor: FREDY CARPIO NONAUTO WO MICRO (810 02) - IN OFFICE Reviewed date:11/24/2024 12:49:49 PM Interpretation: Performing Lab: Notes/Report: COLOR yellow CLARITY clear GLUCOSE neg BILIRUBIN neg KETONE neg SPECIFIC GRAVITY 1.010 BLOOD trace PH 7.0 PROTEIN neg UROBILINOGEN neg NITRITE neg LEUKOCYTE ESTERASE trace TSH Reviewed date:08/17/2024 03:56:45 PM Interpretation: Performing Lab: Notes/Report: [facility] , Thyroid Stimulating Hormone 2.116 0.358-3.740 uIU/mL Performing Lab: see note ML - [facility] LB T4 Reviewed date:08/17/2024 03:56:45 PM Interpretation: Performing Lab: Notes/Report: [facility] , T4 Thyroxine 9.30 4.80-13.90 ug/dL Performing Lab: see note ML - [facility] LB PROF 14(COMP METB) Reviewed date:08/17/2024 03:56:45 PM Interpretation: Performing Lab: Notes/Report: [facility] , Sodium 138 136-145 mmol/L Potassium 3.9 3.5-5.1 mmol/L Chloride 105 98-107 mmol/L Carbon Dioxide 27.1 21.0-32.0 mmol/L Anion Gap 9.8 Glucose 103 74-106 mg/dL Blood Urea Nitrogen 18.0 7.0-18.0 mg/dL Creatinine 1.00 0.55-1.02 mg/dL Estimated GFR ( Laina >60 >=60 mL/min/1.73m 2 Estimated GFR (Non- Rebecca 56 >=60 mL/min/1.73m 2 BUN Creatinine Ratio 18.0 Calcium 9.3 8.5-10.1 mg/dL Bilirubin Total 0.3 0.2-1.0 mg/dL Aspartate Amino Transferase 17 15-37 U/L Alanine Aminotransferase 33 14-59 U/L Alkaline Phosphatase 101 46-116 U/L Total Protein 7.1 6.4-8.2 g/dL Albumin Level 3.8 3.4-5.0 g/dL Globulin 3.3 Albumin Globulin Ratio 1.2 Performing Lab: see note ML - [facility] LB LIPID PROFILE Reviewed date:08/17/2024 03:56:45 PM Interpretation: Performing Lab: Notes/Report: [facility] , Triglycerides 84 <=150 mg/dL Cholesterol 226 <=200 mg/dL HDL Cholesterol 60 40-60 mg/dL <40 mg/dl - HIGH CARDIOVASCULAR RISK > or =60 mg/dl - LOW CARDIOVASCULAR RISK LDL Cholesterol Calculated 150.0 100-129 mg/dl NEAR OR ABOVE OPTIMAL >190 mg/dl VERY HIGH 130-159 mg/dl BORDERLINE HIGH <100 mg/dl OPTIMAL 160-189 mg/dl HIGH VLDL CHOLESTEROL 16.8 Chol HDL Ratio 3.8 7.1 - 11.0 MODERATE RISK 3.3 - 4.4 LOW RISK 4.4 - 7.1 AVERAGE RISK >11.0 HIGH RISK Performing Lab: see note ML - [facility] GLYCOHEMOGLOBIN A1C Reviewed date:08/17/2024 03:56:45 PM Interpretation: Performing Lab: Notes/Report: [facility] , Glycohemoglobin A1C 5.6 4.5-6.2 % > 7.0 ADA THERAPEUTIC TARGET < 7.0 ACTION SUGGESTED ADA RECOMMENDED LIMIT 4.0 - 6.0 Estimated Average Glucose 114 Performing Lab: see note ML - [facility] FREE T3 Reviewed date:08/17/2024 03:56:45 PM Interpretation: Performing Lab: Notes/Report: [facility] , Free T3 2.67 2.18-3.98 pg/mL Performing Lab: see note ML - [facility] CBC AUTO DIFF Reviewed date:08/17/2024 03:56:45 PM Interpretation: Performing Lab: Notes/Report: [facility] , White Blood Count 7.2 4.0-11.0 10 3/uL Red Blood Count 4.74 4.20-5.40 10 6/uL Hemoglobin 14.8 12.0-16.0 g/dL Hematocrit 43.6 36.0-48.0 % Mean Corpuscular Volume 92.0 81.0-99.0 fL Mean Corpuscular Hemoglobin 31.2 26.7-34.0 pg Mean Corpuscular HGB Conc 33.9 29.9-35.2 g/dL Red Cell Distribution Width 12.1 11.0-15.0 % Platelet Count 235 150-450 10 3/uL Mean Platelet Volume 10.1 9.5-13.5 fL Neutrophils Percent Auto 58.9 43.0-75.0 % Lymphocytes Percent Auto 27.5 20.5-60.0 % Monocytes Percent Auto 11.0 1.7-12.0 % Eosinophils Percent Auto 1.7 0.9-7.0 % Basophils Percent Auto 0.6 0.2-2.0 % Immature Granulocytes Pct Auto 0.3 0.0-0.5 % Neutrophils Absolute Auto 4.2 1.4-6.5 10 3/uL Lymphocytes Absolute Auto 2.0 1.2-3.8 10 3/uL Monocytes Absolute Auto 0.8 0.3-0.8 10 3/uL Eosinophils Absolute Auto 0.1 0.0-0.7 10 3/uL Basophils Absolute Auto 0.0 0.0-0.1 10 3/uL Immature Granulocytes Abs Auto 0.02 0.00-0.03 10 3/uL Performing Lab: see note ML - [facility] LB VITAMIN D 25 OH Reviewed date:08/17/2024 03:56:45 PM Interpretation: Performing Lab: Notes/Report: [facility] , Vitamin D 65.5 30-100 ng/mL Vit D sufficient <20 ng/mL Vit D deficient 20-<30 ng/mL Vit D insufficient >100 ng/mL Potential Toxicity Performing Lab: see note ML - [facility] LB Reason For Referral No Information Medications Medication SIG (Take, Route, Frequency, Duration) Notes Start Date End Date Status Pristiq 100 MG 1 tablet Orally Once a day 08/11/2024 Active Ondansetron 4 MG 1 tablet on the tong ue and allow to dissolve Orally Once a day for 30 days PRN 02/01/2024 Active hydrOXYzine HCl 25 MG 1 tablet as needed Orally Q 4 hours for 10 days Active CeleBREX 200 MG 1 capsule with [...] 1 tablet Orally Once a day Active Vitamin D 50 MCG (1999 UT) 1 capsule Ora lly Once a day Active Zovirax 5 % 1 application Pc Support Specialist ally Five times a day for 4 days 11/24/2024 Active Tylenol Extra Strength 500 MG 1 tablet as needed Orally every 6 hrs PRN Active Lopressor 50 MG 1 tab Orally Twice a day for 90 days Active valACYclovir HCl 1 GM 1 tablet Orally ti d for 10 days 11/24/2024 Active Cefdinir 300 MG 2 capsule Orally onc e a day for 10 days 11/24/2024 Active Social History Tobacco Use: Social History Observation Description Date Details (start date - stop date) Never Smoker NA - NA Tobacco Use/Smoking Question Answer Notes Patient is a nonsmoker Alcohol Screen (Audit-C) Question Answer Notes Did you have a drink containing alcohol in the p ast year? No Points 0 Interpretation Negative AUDIT-C (Standard) Question Answer Notes Did you have a drink containing alcohol in the p ast year? No Points 0 Interpretation Negative Section Notes: non smoker non smoker non smoker non smoker non smoker non smoker non smoker non smoker non smoker non smoker non smoker non smoker non smoker non smoker non smoker Problems Problem Type SNOMED Code ICD Code Onset Dates Problem Status W/U Status Risk Notes Problem 349752774 Other specified mononeuropathies of right lower limb (G57.81) Active confirmed Problem 876889211 Other specified mononeuropathies of left lower limb (G57.82) Active confirmed Problem Hypertension (53223106) Hypertension (I10) Active confirmed Problem Osteoarthritis (688465653) Osteoarthritis (M19.90) Active confirmed Problem Obesity (492198787) Obesity (BMI 30-39.9) (E66.9) Active confirmed Problem Female stress incontinence (77817982) Female stress incontinence (N39.3) Active confirmed Problem Osteopenia (888469105) Osteopenia (M85.80) Activ e confirmed Problem Insomnia (019225980) Insomnia (G47.00) Active c onfirmed Problem Vitamin D deficiency (24316432) Vitamin D deficiency (E55.9) Active confirmed Problem Disorder of lumbar disc (169903126) Lumbar disc disease (M51.9) Active confirmed Problem Well adult (327113299) Well adult (Z00.00) Activ e confirmed Problem Pyelonephritis (31287765) Pyelonephritis (N12) Active confirmed Problem Neuropathic pain (166960700) Neuropathic pain (M79.2) Active confirmed Problem Rheumatoid arteritis (642225796) Rheumatoid arteritis (I00) Active confirmed Problem Spasm of bladder (774820285) Bladder spasms (N32.89) Active confirmed Problem Shoulder impingement syndrome (386161441) Shoulder impingement syndrome (M75.40) Active confirmed Problem High cholesterol (91626507) High cholesterol (E78.00) Active confirmed Problem hypercholesterolemia (disorder) (58391600) Hypercholesteremia (E78.00) Active confirmed Problem COVID-19 (995511269) COVID-19 (U07.1) Active co nfirmed Vital Signs Temperature 100.0 degrees Fahrenheit 04/24/2024 Blood pressure diastolic 98 mm Hg 11/24/2024 Height 64 in 11/24/2024 Blood pressure systolic 160 mm Hg 11/24/2024 Weight 166.8 lbs 11/24/2024 BMI 28.63 kg/m2 11/24/2024 Encounters Encounter Location Date Provider Diagnosis [facility] [address] [place] [address] 07/14/2024 Adam Bruner Dysuria R30.0 [facility] [address] [place] [address] 07/31/2024 Adam Bruner [facility] [address] [place] [address] 08/11/2024 Adam Bruner [facility] [address] [place] [address] 08/17/2024 Adam Bruner High cholesterol E78 .00 [facility] [address] [place] [address] 11/24/2024 Adam Hoy [facility] [address] [facility] [place] [address] 11/25/2024 Adam Hoy Bladder spasms N32.[address] [facility] [address] [facility] [place] [address] 05/16/2024 Adam Hoy Dysuria R30.0 [facility] [address] [place] [facility] [address] 05/30/2024 Adam Hoy [facility] [address] [facility] [place] [address] 06/11/2024 Adam Hoy Dysuria R30.0 [facility] [address] [facility] [place] [address] 06/11/2024 Adam Hoy Dysuria R30.0 [facility] [address] [facility] [place] [address] 06/30/2024 Adam Hoy Dysuria R30.0 [facility] [address] [facility] [place] [address] 07/14/2024 [facility] [address] [facility] [place] [address] 02/14/2024 Adam Hoy Dysuria R30.0 [facility] [address] [place] [facility] [address] 02/22/2024 Adam Hoy Dysuria R30.0 [facility] [address] [facility] [place] [address] 03/03/2024 [facility] [address] [facility] [place] [address] 03/11/2024 Siobhan Yasmeen Dysuria R30.0 [facility] [address] [facility] [place] [address] 04/02/2024 Adam Hoy Dysuria R30.0 [facility] [address] [facility] [place] [address] 04/21/2024 Adam Hoy Dysuria R30.0 [facility] [address] [place] [address] 01/18/2024 Adam Hoy [facility] [address] [place] [address] 04/24/2024 Adam Hoy Fever R50.9 ; Body a ches R52 and Acute bronchitis, unspecified organism J20.9 [place] [address] [place] [address] 11/24/2024 Adam Hoy Bladder spasms N32.8 9 ; Shingles B02.9 and Hypercholesteremia E78.00 [place] [address] [place] [address] 02/01/2024 Adam Hoy Dysuria R30.[address] [address] 08/15/2024 Adam Hoy Nerve pain M79.2 ; N ausea R11.0 and Elevated blood pressure (not hypertension) R03.0 [place] [place] [address] 09/01/2024 Adam Hoy Dysuria R30.[address] [address] 08/06/2024 Adam Hoy Insomnia G47.00 Assessments Encounter Date Diagnosis (ICD Code) Assessment Notes Treatment Notes Treatment Clinical Notes Section Notes 02/01/2024 Dysuria (ICD-10 - R30.0) 04/24/2024 Fever (ICD-10 - R50.9) 04/24/2024 Body aches (ICD-10 - R52) 08/06/2024 Insomnia (ICD-10 - G47.00) 08/15/2024 Nerve pain (ICD-10 - M79.2) 08/15/2024 Nausea (ICD-10 - R11.0) 02/14/2024 Dysuria (ICD-10 - R30.0) 02/22/2024 Dysuria (ICD-10 - R30.0) 03/11/2024 Dysuria (ICD-10 - R30.0) 04/02/2024 Dysuria (ICD-10 - R30.0) 04/21/2024 Dysuria (ICD-10 - R30.0) 05/16/2024 Dysuria (ICD-10 - R30.0) 06/11/2024 Dysuria (ICD-10 - R30.0) 06/11/2024 Dysuria (ICD-10 - R30.0) 06/30/2024 Dysuria (ICD-10 - R30.0) 07/14/2024 Dysuria (ICD-10 - R30.0) 08/17/2024 High cholesterol (ICD-10 - E78.00) 11/25/2024 Bladder spasms (ICD-10 - N32.89) 09/01/2024 Dysuria (ICD-10 - R30.0) 11/24/2024 Bladder spasms (ICD-10 - N32.89) 11/24/2024 Shingles (ICD-10 - B02.9) 11/24/2024 Hypercholesteremia (ICD-10 - E78.00) 08/15/2024 Elevated blood pressure (not hypertension) (ICD-10 - R03.0) 04/24/2024 Acute bronchitis, unspecified organism (ICD-10 - J20.9) Rest and drink more liquids, especially water. You may use a humidifier or vaporizer to help keep the drainage moist. Nurb-jho-wfnpkwi Nasal Saline may help the stuffy and runny nose. Use Ibuprofen and or Tylenol as needed for fever, chills, body aches or pain. Children 5 years old should not be given zkxx-bdj-mysjzit cough and cold medications such as guaifenesin and dextromethorphan. If you're over age 5, you may try glpf-thf-zltdsfh cold medications such as guaifenesin and dextromethorphan, or multi-symptom cold reliever such as Dayquil to help reduce the symptoms. Antibiotics have been prescribed. You should take these until completed and follow the directions. Antibiotics can sometimes cause upset stomach, and in rare cases, serious allergic reactions or serious gastrointestinal problems. If you start having severe abdominal pain, severe vomiting, or bloody diarrhea, you should be reevaluated by your physician or urgent care immediately. Follow up with your Primary Care Provider or return to clinic if symptoms do not improve within 3-5 days. If you develop severe symptoms such as shortness of breath, repeated vomiting, coughing up blood, or chest pain you should go to the emergency room or call 911 Plan Of Treatment Pending Test Test Name Order Date HEMOGLOBIN A1C (GLYCO) 08/15/2024 LIPID PANEL (CHOL/TRIG/HDL/LDL) 08/16/19 25 VITAMIN D, 25 LEVEL (TOTAL) 08/15/2024 STOOL OCCULT BLOOD 08/15/2024 LIPID PROFILE 11/24/2024 LIVER PROFILE 11/24/2024 LIVER PROFILE 08/17/2024 PROF CHEM 8 (BAS METB) 11/24/2024 XR KUB 1 VIEW 11/24/2024 THYROID PANEL (T4/TSH/FREE T3) Lipid Panel 08/17/2024 CMP (COMP MET GONZALES) w/eGFR CKD-EPI 2024 CBC WITH DIFF 08/15/2024 Insurance Providers Payer Name Payer Address Payer Phone Subscriber Number Group Number Insured Name Patient Relationship to Insured Coverage Start Date Coverage End Date [employer] PPO PLUS LOCAL PLAN [address] [place] [phone] [id number] Eli Boyce Self - patient is the insured [address] [place] [address] [id number] Austen Eli Self - patient is the insured Medications Administered Medication Instructions Date of Administration Dosage Notes Ketorolac Tromethamine 11/24/2024 60 mg Triamcinolone 40 mg/ml 04/24/2024 80 mg Medical (General) History Medical History History ICD Code Sprain of ankle, left S93.402A Fracture of left talus S92.102A hypertension Neuritis of left lower extremity G57.92 Obesity (BMI 30-39.9) E66.9 Osteoarthritis M19.90 Pyelonephritis N12 Vitamin D deficiency E55.9 Shoulder impingement syndrome M75.40 Neuropathic pain M79.2 Insomnia G47.00 Female stress incontinence N39.3 Osteopenia M85.80 Lumbar disc disease M51.9 Rheumatoid arteritis I00 Hypertension I10 Surgical History Surgery Date(Month/Year) hysterectomy cholecystectomy peroneal nerve release left, superficial nerve release left, tibial nerve release left, harvest bone marrow 06.23.2021 Dr. Russell Lithotripsy- stent placement Surgery for urinary incontinence 2023
--- OUTSIDE RECORDS SUMMARY | 2024-12-29 06:48 | XMS_ITS | Clinical Summary ---
Author Organization [facility] Address [address] [place], [place] [id number] Care Team Providers Care Neurosurgery Physician Name Role Phone Baal Unger MD Primary Care Provider [phone] Allergies No known active allergies Medications Cholecalciferol , Vitamin D3, (VITAMIN D-3) 2,000 unit cap Take by mouth once daily. Active amitriptyline (ELAVIL) 25 mg tablet Take 25 mg by mouth daily at bedtime. Active tamsulosin (FLOMAX) 0.4 mg cp24 Take 1 capsule by mouth daily at bedtime. 30 capsule 1 06/29/2014 Active docusate sodium (COLACE) 100 mg capsule Take 1 capsule by mouth twice daily. 60 capsule 0 07/06/2014 Active ibuprofen (MOTRIN) 600 mg tablet Take 600 mg by mouth every 6 hours as needed. Active hydrochlorothia zide (HYDRODIURIL, ESIDRIX) 25 mg tablet Take 1 tablet by mouth twice daily. 60 tablet 6 11/16/2014 Active venlafaxine (EFFEXOR) 37.5 mg tablet Take 75 mg by mouth once daily. Active estrogens conjugated (PREMARIN) 0.3 mg tablet Take 1 tablet by mouth once daily. 0 01/06/2015 Active HYDROcodone-aileen taminophen (NORCO) 5-325 mg per tablet Take 1 tablet by mouth every 6 hours as needed. 15 tablet 0 01/13/2015 Active docusate sodium (COLACE) 100 mg capsule Take 1 capsule by mouth twice daily. 30 capsule 0 01/13/2015 Active ibuprofen (MOTRIN) 600 mg tablet Take 1 tablet by mouth every 6 hours as needed for Pain. 28 tablet 0 04/14/2015 Active HYDROcodone-aileen taminophen (NORCO) 5-325 mg per tablet Take 1 tablet by mouth every 6 hours as needed. 15 tablet 0 04/14/2015 Active Active Problems Problem Noted Date Diagnosed Date UTI (lower urinary tract infection) 06/25/2014 Kidney stone 06/11/2014 Calculus of kidney 06/11/2014 Pyuria 06/11/2014 Osteopenia 06/11/2014 Female stress incontinence 06/11/2014 Weakness 07/15/2013 Family History Medical History Relation Comments Kidney stones [Other] Brother Rheumatoid Arthritis [Other] Brother Ischemic Heart Disease Father Kidney stones [Other] Father Stroke Father Heavy smoker and drinker Cancer Maternal Grandmother Colon Cance r Osteroarthritis [Other] Maternal Grandmother Pain [Other] Mother Joint/muscle rohan n Relation Status Comments Brother Father Maternal Grandmother Mother Social History Tobacco Use Types Packs/Day Years Used Date Smoking Tobacco: Never Smokeless Tobacco: Never Alcohol Use Standard Drinks/Week Comments No 0 (1 standard drink = 0.6 oz pur e alcohol) Area Deprivation Index Answer Date Madan rded National Score (1-100), lower number is lower ri sk 53 09/13/2022 State Score (1-10), lower number is lower risk 3 09/13/2022 Data from: https://www.neighborhoodatlas.medicine.[facility].edu/. Last address used for calculation [address] [place] [address] [address] 09/13/2022 Comments No Sex and Gender Information Value Date Recorded Sex Assigned at Not on file Legal Sex Female 9:27 AM EST Gender Identity Not on file Sexual Orientation Not on file Occupation Industry Job Start Date Job End Date [employer] Not on file Not on file Not on file Last Filed Vital Signs Vital Sign Reading Time Taken Comments Blood Pressure 153/87 06/06/2024 8:11 AM EST Pulse 59 04/14/2015 10:38 PM EST Temperature 36.5 C (97.7 F) 04/14/2015 5:34 PM EST Respiratory Rate 16 04/14/2015 10:38 PM EST Oxygen Saturation 100% 04/14/2015 10:38 PM EST Inhaled Oxygen Concentration - - Weight 69.9 kg (154 lb 1.6 oz) 06/06/2024 8:11 A M EST Height 162.6 cm (5' 4 ) 06/06/2024 8:11 AM EST Body Mass Index 26.45 06/06/2024 8:11 AM EST Plan of Treatment Health Maintenance Due Date Last Done Comments Anxiety Screening 1981 Depression Screening 1981 HIV Screening 1981 Cervical Cancer Screening 01/27/[address] Colonography 01/27/2008 Cologuard (FIT-DNA) 01/27/2008 Colonoscopy 01/27/2008 Colorectal Cancer Screening 01/27/2008 Fecal Occult Blood 01/27/2008 Lipid Screening 01/27/2008 Sigmoidoscopy 01/27/2008 Shingrix Vaccine (1 of 2) 2013 Pneumococcal Vaccine: 50+ (2 of 2 - PCV) 06/03/2015 06/03/2014, 05/14/2011 Influenza Vaccine (#1) 2025 2, 03/10/2021, 02/25/2020, Additional history exists Diabetes Screening 02/20/2025 02/20/2022, 1 06/15/2014, 01/06/2015, Additional history exists DTaP,Tdap,Td Vaccine (2 - Td or Tdap) 03/01/2026 03/01/2016 RSV Vaccine (1 - 1-dose 75+ series) 2038 Hepatitis C Screening Completed 07/07/2013 Medical Devices Implanted Type Area Quality Control Director Device Identifier Shelf Expiration Date Model / Serial / Lot Stent Uret 7fr 26cm W/O Gw Inl - [id number] Implanted:Qty : 1 on 07/06/2014 at [facility] Urologic Stents Left: [employer] 03/14/2019 [id number] / / [id number] Procedures Procedure Name Priority Date/Time Associated Diagnosis Comments BASIC METABOLIC PANEL STAT 04/14/2015 7:43 PM EST HEP REMOTE PANEL BL Routine 07/07/2013 3 :24 PM EST Myalgia Hand pain from Last 3 Months or Most Recently Relevant to Health Maintenance Results * BASIC METABOLIC PNL (04/14/2015 7:43 PM EST) Glucose 88 65 - 100 mg/dL 04/14/2015 8:24 PM EST [facility] BUN 11 8 - 25 mg/dL 04/14/2015 8:24 PM EST [facility] Creatinine 0.76 0.70 - 1.40 mg/dL 04/14/2015 8:24 PM EST [facility] Sodium 141 132 - 148 mmol/L 04/14/2015 8:24 PM EST [facility] Potassium 4.0 3.5 - 5.0 mmol/L 04/14/2015 8:24 PM [facility] Chloride 101 98 - 110 mmol/L 04/14/2015 8:24 PM EST [facility] CO2 26 23 - 32 mmol/L 04/14/2015 8:24 PM [facility] Anion Gap 14 0 - 15 mmol/L 04/14/2015 8:24 PM [facility] Calcium 9.0 8.5 - 10.5 mg/dL 04/14/2015 8:24 PM [facility] eGFR- >60 04/14/2015 8:24 PM [facility] eGFR-All Other Races >60 . 04/14/2015 8:24 PM [facility] Comment: eGFR (Estimated GFR) Units of measure: mL/min/1.73 meters squared eGFR is derived from the reexpressed MDRD Study equation using the following parameters: serum creatinine, age, gender and race. The creatinine assay has been calibrated to be traceable to IDMS. An eGFR <60 mL/min/1.73m2 for >3 months is consistent with chronic kidney disease. Refer to KDOQI guidelines for clinical interpretation. In patients with unstable renal function, e.g. those with acute kidney injury, the eGFR may not accurately reflect actual GFR. Blood specimen (specimen) BLOOD SPECIMEN / Unknown 04/14/2015 7:43 PM EST 04/14/2015 7:52 PM EST us Galindo Mendoza MD LABORATORY Final Result [facility] [address] [place] [address] * (ABNORMAL) HEP REMOTE PANEL BL (07/07/2013 3:24 PM EST) Hep B Core Ab, Total Negative NEGAT [facility] Hep C Antibody IA Negative NEGAT [facility] HBsAg Negative NEGAT [facility] Hep B Surface Ab, Qual Positive(A) NEGAT [facility] Comment: These results are consistent with previous exposure and/or immunity to the hepatitis B virus antigen. Blood specimen (specimen) BLOOD SPECIMEN / Unknown 07/07/2013 3:24 PM EST 07/07/2013 3:26 PM EST us Maira Galeas FIGURE CLERK.RED MUD THICKENER OPERATOR LABORATORY Final Re sult [facility] [address] [place] [address] from Last 3 Months or Most Recently Relevant to Health Maintenance Insurance [email or web address] PPO Care Teams Neurosurgery Physician Relationship Specialty Start Date End Date Bala Unger MD [address] [place] [address] PCP - General 08/22/00
--- NOTE | 2024-12-29 06:54 | US_ITS ---
[address] [address] Patient Name: CARMELO CHUNG MRN: [id number] date: 1965 Sex: F Assigned Patient Location: [place] Current Patient Location: [place] Accession/Order Number: [id number] Exam Date: 12/29/2024 12:17 Report Date: 12/29/2024 12:19 At the request of: RICHY BRUNER NP Procedure: US renal BI Bilateral Renal Ultrasound HISTORY: History of a kidney stones. Microscopic hematuria. COMPARISON: None RIGHT kidney measures 9.5 cm cm. LEFT kidney measures 9.5 cm cm. Hydronephrosis: None RENAL STONE: Bilateral nonobstructing renal calculi measuring up to 5 mm. RENAL LESIONS: No renal lesion identified. URINARY BLADDER: Unremarkable REPRODUCTIVE STRUCTURES Not assessed IMPRESSION : No hydronephrosis. Impression dictated by: Skyler Sanon M.D. 12/29/2024 12:19 PM Dictation Location: [place] [address] Electronically authenticated by: [id number] Y Date: 12/29/2024 12:19
== END 2024-12-29 06:45 | disposition home or self-care (01) ==
LOC: US 06:44
PROVIDERS: PCP Family Medicine; Visit Provider Nurse Practitioner Family
DX: N20.0 Calculus of kidney (principal)
CPT/HCPCS: 76775

== ENCOUNTER 2025-04-28 09:34 | Outpatient (OUT) | payer BC, SELFPAY ==
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
--- OUTSIDE RECORDS SUMMARY | 2025-01-26 04:45 | XMS_ITS ---
Author Organization [facility] [place] Address [address] [place] [address] Care Team Providers Care Environmental Technology Professor Name Role Phone Adam Unger Primary Care Provider REASON FOR VISIT Hernia Encounters Encounter Location Date Provider Diagnosis [facility] [place] [address] [place] [address] 2025 Adam Unger Plan Of Treatment No Information Progress Notes * Marcelo BOYCEaDOB:1965 (60 yo F)Acc No.[id number]:2025 UNLOCKED PROGRESS NOTE Progress Note Patient: Eli SIMPSON :Kahlil Unger (LUCY), MDDOB:1965???Age: 60 Y???Sex:FemaleDate:2025Phone:[phone]:[address] [place], [place] [id number] Subjective: * Chief Complaints: * 1 . Hernia. * Medical History: Objective: * Vitals: Assessment: Plan: * Treatment: * * Electronic signature of Adam Unger MD, [id number] on 04/28/2025 at 09:37 AM EST Sign off status: PendingVisit Status:?CANC (Cancelled) * Provider: Dorota Unger MD (TTC) Date: 0 2025 Generated for Printing/Faxing/eTransmitting on:?04/28/2025 09:37 AM EST
--- OUTSIDE RECORDS SUMMARY | 2025-04-28 09:37 | XMS_ITS | Patient Health Record ---
Author Organization [facility] [place] Address [address] [place] [address] Care Team Providers Care Molding Machine Setter Name Role Phone Adam Bruner Primary Care Provider Allergies No Known Allergies Results Component Value Reference Range Notes MM tomosynthesis screening B I Reviewed date:12/23/2024 08:21:27 PM Interpretation: Performing Lab: Notes/Report: Source Facility: [place] [address] Mammography Report Signed Patient: ELI BOYCE MR#: [id number] : 1965 Acct:[id number] Age/Sex: 59 / F ADM Date: 12/23/24 Loc: MAMMO Attending Dr: Adi Hammer D.O. Ordering Physician: Adi Hammer D.O. Results: Date of Service: 12/23/24 Follow Up: Procedure(s): MM tomosynthesis screening BI Accession Number(s): [id number] cc: Adi Hammer D.O.; Phillip Bruner M.D. Patient Name: ELI BOYCE MR#: [id number] : 1965 Exam Date: 12/23/2024 Ordering Doctor: [...] colon cancer at age 71. LOCATION: [facility] BREAST COMPOSITION: The breasts are heterogeneously [...] M.D. Signed By: 12/23/241610 DD/ 09 TD/TT: Starchmaker: XR abdomen 1V Reviewed date:11/24/2024 12:49:49 PM Interpretation: Performing Lab: Notes/Report: Source Facility: [place] [address] XRay Report Signed Patient: ELI BOYCE MR#: [id number] : 1965 Acct:[id number] Age/Sex: 59 / F ADM Date: 11/24/24 Loc: RAD Attending Dr: Phillip Bruner M.D. Ordering Physician: Phillip Bruner M.D. Date of Service: 11/24/24 Procedure(s): XR abdomen 1V Accession Number(s): [id number] cc: Phillip Bruner M.D. [place] [address] Patient Name: ELI BOYCE MRN: [id number] date: 1965 Sex: F Assigned Patient Location: RAD Current Patient Location: RAD Accession/Order Number: [id number] Exam Date: 11/24/2024 11:57 Report Date: 11/24/2024 [...] Heard M.D. 11/24/2024 12:01 PM Dictation Location: [place] [address] Electronically authenticated by: [id number] Y Date: 11/24/2024 12:01 Dictated By: Claudine Heard M.D. Signed By: 11/24/24 1203 DD/ 1201 TD/TT: Starchmaker: VITAMIN D 25 [place] Reviewed date:08/17/2024 03:56:45 PM Interpretation: Performing Lab: Notes/Report: [facility] , Vitamin D 65.5 30-100 ng/mL Vit D sufficient <20 ng/mL Vit D deficient 20-<30 ng/mL Vit D insufficient >100 ng/mL Potential Toxicity Performing Lab:see noteML - [facility] LBGLYCOHEMOGLOBIN A1C Reviewed date:08/17/2024 03:56:45 PM Interpretation: Performing Lab: Notes/Report: [facility] ,Glycohemoglobin A1C5.64.5-6.2 % > 7.0 ADA THERAPEUTIC TARGET < 7.0 ACTION SUGGESTED ADA RECOMMENDED LIMIT 4.0 - 6.0 Estimated Average Hxhftkl606Ojjrquonkz Lab:see noteML - [facility] LB CBC AUTO DIFF Reviewed date:08/17/2024 03:56:45 PM Interpretation: Performing Lab: Notes/Report: [facility] ,White Blood Count7.24.0-11.0 10 3/uLRed Blood Count4.744.20-5.40 10 6/uL Gtxsnqyvce21.812.0-16.0 g/oOFnwodpsbwg85.636.0-48.0 %Mean Corpuscular Qshobt00.0 81.0-99.0 fLMean Corpuscular Qycfjstexh97.226.7-34.0 pgMean Corpuscular HGB Conc 33.929.9-35.2 g/dLRed Cell Distribution Width12.111.0-15.0 %Platelet Olybn600 150-450 10 3/uLMean Platelet Zwkaex67.19.5-13.5 fLNeutrophils Percent Auto58.9 43.0-75.0 %Lymphocytes Percent Auto27.520.5-60.0 %Monocytes Percent Auto11.01.7- 12.0 %Eosinophils Percent Auto1.70.9-7.0 %Basophils Percent Auto0.60.2-2.0 % Immature Granulocytes Pct Auto0.30.0-0.5 %Neutrophils Absolute Auto4.21.4-6.5 10 3/uLLymphocytes Absolute Auto2.01.2-3.8 10 3/uLMonocytes Absolute Auto0.80.3-0.8 10 3/uLEosinophils Absolute Auto0.10.0-0.7 10 3/uLBasophils Absolute Auto0.00.0- 0.1 10 3/uLImmature Granulocytes Abs Auto0.020.00-0.03 10 3/uLPerforming Lab:see noteML - [facility] LBUA DIP NONAUTO WO MICRO ([id number]) - IN OFFICE Reviewed date:11/24/2024 12:49:49 PM Interpretation: Performing Lab: Notes/Report: COLORyellowCLARITYclearGLUCOSEnegBILIRUBINnegKETONEnegSPECIFIC GRAVITY1.010BLOOD tracePH7.0PROTEINnegUROBILINOGENnegNITRITEnegLEUKOCYTE ESTERASEtraceUA (Urinalysis, Dipstix only - w/o micro) Reviewed date:11/24/2024 12:49:49 PM Interpretation: Performing Lab: Notes/Report: COLORyellowYellow - Patricia -CLARITYclearClear - ClearGLUCOSENEG0 - 133 MG/DL ALBUMINNEGNEG - NEG MG/DLBILIRUBINNEGNEG - NEG MG/DLSPECIFIC GRAVITY1.0101.001 - 1.035KETONESNEGNEG - NEG MG/DLBLOOD, URTRACEPH, UR75 - 0MSWYTIEBZZIBOR2.2 - 1 MG/DLNITRITENEGNEG - NEGESTERASE (THERESA)TRACENEG - NEG MG/DLTSH Reviewed date:08/17/2024 03:56:45 PM Interpretation: Performing Lab: Notes/Report: [facility] ,Thyroid Stimulating Hormone2.1160.358-3.740 uIU/mLPerforming Lab:see noteML - [facility] LBT4 Reviewed date:08/17/2024 03:56:45 PM Interpretation: Performing Lab: Notes/Report: [facility] ,T4 Thyroxine9.304.80-13.90 ug/dLPerforming Lab:see noteML - [facility] LBPROF 14(COMP METB) Reviewed date:08/17/2024 03:56:45 PM Interpretation: Performing Lab: Notes/Report: [facility] ,Bselug741692-286 mmol/LPotassium3.93.5-5.1 mmol/CBxkeyyvb81473-995 mmol/LCarbon Wvbuijp57.121.0-32.0 mmol/LAnion Gap9.8Femcsnm33377-059 mg/dLBlood Urea Nitrogen 18.07.0-18.0 mg/dLCreatinine1.000.55-1.02 mg/dLEstimated GFR ( Laina>60 >=60 mL/min/1.73m 2Estimated GFR (Non- Ame56>=60 mL/min/1.73m 2BUN Creatinine Ratio18.7Cqzrpku6.38.5-10.1 mg/dLBilirubin Total0.30.2-1.0 mg/dL Aspartate Amino Ptgwxkassrt3342-31 U/LAlanine Rxvtnrqtxlcicwxg3644-97 U/L Alkaline Ufgtlahydxg65669-950 U/LTotal Protein7.16.4-8.2 g/dLAlbumin Level3.8 3.4-5.0 g/dLGlobulin3.3Albumin Globulin Ratio1.2Performing Lab:see noteML - [facility] LBLIPID PROFILE Reviewed date:08/17/2024 03:56:45 PM Interpretation: Performing Lab: Notes/Report: [facility] ,Vdgppfyrtkgbm98<=150 mg/zRJqtlzltpqsu238<=200 mg/dLHDL Ekdlhzutepg7816-77 mg/dL <40 mg/dl - HIGH CARDIOVASCULAR RISK > or =60 mg/dl - LOW CARDIOVASCULAR RISK LDL Cholesterol Wwanhntemy969.0 100-129 mg/dl NEAR OR ABOVE OPTIMAL >190 mg/dl VERY HIGH 130-159 mg/dl BORDERLINE HIGH <100 mg/dl OPTIMAL 160-189 mg/dl HIGH VLDL NMMQVBACGRK75.8Chol HDL Ratio3.8 7.1 - 11.0 MODERATE RISK 3.3 - 4.4 LOW RISK 4.4 - 7.1 AVERAGE RISK >11.0 HIGH RISK Performing Lab:see noteML - [facility] LBFREE T3 Reviewed date:08/17/2024 03:56:45 PM Interpretation: Performing Lab: Notes/Report: [facility] ,Free T32.672.18-3.98 pg/mLPerforming Lab:see noteML - [facility] LB US renal BI Reviewed date:12/29/2024 02:13:43 PM Interpretation: Performing Lab: Notes/Report: Source Facility: [place] [address] [place] [address] Ultrasound Report Signed Patient: ELI BOYCE MR#: [id number] : 1965 Acct:[id number] Age/Sex: 59 / F ADM Date: 12/29/24 Loc: US Attending Dr: Elana Santillan DIRECTOR OF SAFETY AND SECURITY Ordering Physician: Elana aSntillan NP Date of Service: 12/29/24 Procedure(s): US renal BI Accession Number(s): [id number] cc: Phillip Bruner M.D.; Elana Santillan NP [facility] [place] [id number] Patient Name: ELI BOYCE MRN: [id number] date: 1965 Sex: F Assigned Patient Location: US Current Patient Location: US Accession/Order Number: [id number] Exam Date: 12/29/2024 12:17 Report Date: 12/29/2024 12:19 At the request of: ELANA SANTILLAN NP Procedure: US renal BI Bilateral Renal Ultrasound HISTORY: History of a kidney stones. Microscopic hematuria. COMPARISON: None RIGHT kidney measures 9.5 cm cm. LEFT kidney measures 9.5 cm cm. Hydronephrosis: None RENAL STONE: Bilateral nonobstructing renal calculi measuring up to 5 mm. RENAL LESIONS: No renal lesion identified. URINARY BLADDER: Unremarkable REPRODUCTIVE STRUCTURES Not assessed IMPRESSION : No hydronephrosis. Impression dictated by: Skyler Sanon M.D. 12/29/2024 12:19 PM [facility] by: [id number] Y Date: 12/29/2024 12:19 Dictated By: Skyler Sanon D.O. Signed By: 12/29/24 1222 DD/ 1219 TD/TT: Starchmaker: Reason For Referral No Information Medications Medication SIG (Take, Route, Frequency, Duration) Notes Start Date End Date Status Abilify 5 MG 1 1/2 tablet Orally Once a day ActiveAmitriptyline HCl 50 MGTAKE 1 TABLET BY MOUTH EVERY NIGHT AT BEDTIME; Duration: 30ActiveLopressor 50 MG1 tab Orally Twice a day; Duration: 90 days ActiveAmmonium Lactate 12 %small amount Externally Twice a day; Duration: 30 days3ActiveCeleBREX 200 MG1 capsule with food Orally Once a day; Duration: 90 ciwvEKK57/22/2023ActiveTylenol Extra Strength 500 MG1 tablet as needed Orally every 6 hrsPRNActivevalACYclovir HCl 1 GM1 tablet Orally tid; Duration: 10 days5ActivehydrOXYzine HCl 25 MG1 tablet as needed Orally Q 4 hours; Duration: 90 daysActivePristiq 100 MG1 tablet Orally Once a day 5ActiveOndansetron 4 MG1 tablet on the tongue and allow to dissolve Orally Once a day; Duration: 30 phhkMCZ19/20/2024ActiveVitamin D 50 MCG (2000 UT)1 capsule Orally Once a dayActiveZovirax 5 %1 application Externally Five times a day; Duration: 4 days5Active Social History Tobacco Use: Social History Observation Description Date Details (start date - stop date) Never Smoker NA - NA Tobacco Use/Smoking Question Answer Notes Patient is a nonsmoker Alcohol Screen (Audit-C) Question Answer Notes Did you have a drink containing alcohol in the p ast year? No Uqzcgs4QidzdsgsentujrKyebublnWRLYQ-M (Standard) Question Answer Notes Did you have a drink containing alcohol in the p ast year? No Pdwztn3JyppelhkjyxfdhYtqfoluhVcbuave Notes: non smoker non smoker non smoker non smoker non smoker non smoker non smoker non smoker non smoker non smoker non smoker non smoker non smoker non smoker non smoker non smoker non smoker Problems Problem Type SNOMED Code ICD Code Onset Dates Problem Status W/U Status Risk Notes Problem Mononeuropathy of lo wer limb (463261235) Other specified mononeuropathies of right lower limb (G57.81) ActiveconfirmedProblemMononeuropathy of lower limb (465026378)Other specified mononeuropathies of left lower limb (G57.82)ActiveconfirmedProblemHypertension (47918465)Hypertension (I10)ActiveconfirmedProblemOsteoarthritis (732724964) Osteoarthritis (M19.90)ActiveconfirmedProblemObesity (323183119)Obesity (BMI 30- 39.9) (E66.9)ActiveconfirmedProblemFemale stress incontinence (90089115)Female stress incontinence (N39.3)ActiveconfirmedProblemOsteopenia (697499728) Osteopenia (M85.80)ActiveconfirmedProblemInsomnia (326611709)Insomnia (G47.00) ActiveconfirmedProblemVitamin D deficiency (25769482)Vitamin D deficiency (E55.9)ActiveconfirmedProblemDisorder of lumbar disc (391677202)Lumbar disc disease (M51.9)ActiveconfirmedProblemAnkle sprain (04253250)Ankle sprain (S93.409A)ActiveconfirmedProblemWell adult (326704327)Well adult (Z00.00)Active confirmedProblemPyelonephritis (66316693)Pyelonephritis (N12)Activeconfirmed ProblemNeuropathic pain (868630637)Neuropathic pain (M79.2)Activeconfirmed ProblemRheumatoid arteritis (319951512)Rheumatoid arteritis (I00)Activeconfirmed ProblemSpasm of bladder (969431124)Bladder spasms (N32.89)ActiveconfirmedProblem Shoulder impingement syndrome (149812032)Shoulder impingement syndrome (M75.40) ActiveconfirmedProblemHigh cholesterol (11497194)High cholesterol (E78.00)Active confirmedProblemhypercholesterolemia (disorder) (06952329)Hypercholesteremia (E78.00)ActiveconfirmedProblemCOVID-19 (456665894)COVID-19 (U07.1)Active confirmed Vital Signs Blood pressure diastolic 92 mm Hg 02/18/2025 Ruvuia72 in02/18/2025lood pressure vsaqecom385 mm Hg02/18/20251697Euscyt737 lbs 02/18/2025BMI28.49 kg/m202/18/2025 Encounters Encounter Location Date Provider Diagnosis [facility] [address] [place] [address] 08/06/2024 Adam Hoy Insomnia G47.[address] [address] 08/15/2024 Adam Hoy Nerve pain M79.2 ; Nausea R11.0 and Elevated blood pressure (not hypertension) R03.0 [facility] [address] [place] [address] 05/16/2024 Adam Hoy Dysuria R30.0 [facility] [address] [place] [address] 05/30/2024 Adam Hoy [facility] [place] [address] 06/11/2024Doug HoyDysuria R30.0[facility] [place] [address]/29/2025Doug HoyDysuria R30.0[facility] [facility] [address]/Doug HoyDysuria R30.0 [facility] [facility] [address] 07/14/2024[facility] [facility] [address]/07/2024Doug HoyDysuria R30.0[facility] [facility] [address]/Doug HoyDysuria R30.0[facility] [address]/ Adam HoyBladder spasms N32.89 ; Shingles B02.9 and Hypercholesteremia E78.00 [facility] [facility] [address] 01/13/2025Doug HoyAnkle sprain S93.409[facility] [facility] [address]/12/2024Doug HoyAnxiety F41.9[facility] [address]/Doug Hoy [facility] [facility] [address] 08/11/2024Doug [facility] [facility] [address]/10/2024Doug HoyHigh cholesterol E78.00[facility] [facility] [facility] [address]/Doug [facility] [place] [address]/ Adam HoyBladder spasms N32.89[facility] [place] [facility] [place] [place] [address]/Doug [facility] [place] [address]/Doug HoyDysuria R30.0[facility] [place] [facility] [place] [place] [place] [address]/Doug Hoy Dysuria R30.0[facility] [place] [address]/10/2024Doug HoyDysuria R30.0 Assessments Encounter Date Diagnosis (ICD Code) Assessment Notes Treatment Notes Treatment Clinical Notes Section Notes 08/06/2024 Insomnia (ICD-10 - G47.00) 08/15/2024Nausea (ICD-10 - R11.0)08/15/2024Nerve pain (ICD-10 - M79.2)01/13/2025 Ankle sprain (ICD-10 - S93.409A)02/18/2025nxiety (ICD-10 - F41.9)05/16/2024 Dysuria (ICD-10 - R30.0)06/11/2024Dysuria (ICD-10 - R30.0)06/11/2024Dysuria (ICD-10 - R30.0)06/30/2024Dysuria (ICD-10 - R30.0)08/17/2024High cholesterol (ICD-10 - E78.00)11/25/2024ladder spasms (ICD-10 - N32.89)2025Dysuria (ICD-10 - R30.0)03/03/2025Dysuria (ICD-10 - R30.0)03/19/2025Dysuria (ICD-10 - R30.0)07/14/2024Dysuria (ICD-10 - R30.0)09/01/2024Dysuria (ICD-10 - R30.0) 11/24/2024Shingles (ICD-10 - B02.9)11/24/2024ladder spasms (ICD-10 - N32.89) 11/24/2024Hypercholesteremia (ICD-10 - E78.00)08/15/2024Elevated blood pressure (not hypertension) (ICD-10 - R03.0)02/18/2025Otherdiscussed ind to and send in the 10 mg po Q day for Plan Of Treatment Pending Test Test Name Order Date HEMOGLOBIN A1C (GLYCO) 08/15/2024 LIPID PANEL (CHOL/TRIG/HDL/LDL) 08/16/19 25 VITAMIN D, 25 LEVEL (TOTAL) 08/15/2024 STOOL OCCULT BLOOD 08/15/2024 LIPID PROFILE 11/24/2024 LIVER PROFILE 08/17/2024 LIVER PROFILE 11/24/2024 PROF CHEM 8 (BAS [...] ACCESS PPO PLUS LOCAL PLAN [address] [place] [address] [id number] Jerri Boyce - patient is the insuredHUNTER COUNSULT[employer] [id number] [facility] [address] [place] [id number] 2023Jerri Boyce - patient is the insured Medications Administered Medication Instructions Date of Administration Dosage Notes Ketorolac Tromethamine 560 mgTriamcinolone 40 mg/ml480 mg Medical (General) History Medical History History ICD Code Sprain of ankle, left S93.402A Fracture of left talus S92.102A hypertension Neuritis of left lower qqjwdbrjrI72.92Obesity (BMI 30-39.9)E66.9Osteoarthritis M19.79AtxfjmsgsbacssI77Nbjdxwu D ucgsbxvuczJ36.9Shoulder impingement syndrome M75.40Neuropathic painM79.6HewdsxntW49.00Female stress sdmwwdzkwfsmE39.3 TlyzuwjnkjB46.80Lumbar disc xvpefrzC67.9Rheumatoid yudchganlV62PbyepopsuqarK00 Surgical History Surgery Date(Month/Year) hysterectomy cholecystectomyperoneal nerve release left, superficial nerve release left, tibial nerve release left, harvest bone marrow 06.23.2021 Dr. Russell Lithotripsy- stent placementSurgery for urinary qfxmadzsnsxr5136
--- OUTSIDE RECORDS SUMMARY | 2025-04-28 09:37 | XMS_ITS | Patient Health Record ---
Author Organization [facility] Address [address] [place] [address] Care Team Providers Care Career Development Facilitator Name Role Phone CornelBala Primary Care Provider Galindo Macias Unavailable [phone] Reason For Referral No Information Social History [...] Insured Coverage Start Date Coverage End Date [facility] [address] [place] [address] [id number] CARMELO CHUNG Self - patient is the insured Medical (General) History Medical History History ICD Code Anxiety: Yes Chronic back pain:: YesCPAP Machine:: NoDepression: YesEndometriosis: Yes Fibromyalgia: YesGastric Reflux: YesGI Problems: : YesHealthcare worker: YesHigh Blood Pressure: YesIrritable bowel syndrome: YesKidney stones: YesLatex Allergy: NoOsteoarthritis: YesOsteoporosis: YesOvarian Cysts: YesRheumatoid arthritis: YesSeen a Psychiatrist: YesHave you been in close contact with someone who has had MRSA within the last year?: NoHave you ever had or presently have MRSA?: No Have you been seen by a dentist in the last year?: YesDo you have any dental problems i.e. Broken, loose, or chipped teeth, absess, gum disease?: No
--- OUTSIDE RECORDS SUMMARY | 2025-04-28 09:37 | XMS_ITS | Clinical Summary ---
Author Organization [facility] Healthcare Address [address] [place] [address] Care Team Providers Care Instrument Designer Name Role Phone Bala Unger MD Primary Care Provider [phone] Allergies No known active allergies Medications MedicationSigDispense QuantityRefillsLast FilledStart DateEnd DateStatus celecoxib (CeleBREX) 200 MG capsule 1 (one) time each day at the same time11/02/2022ctive ARIPiprazole (Abilify) 2 MG tablet Take 1 tablet by mouth every day for 90 daysActive cholecalciferol (Vitamin D-3) 50 MCG (1999) capsule 1 capsule 1 (one) time each day at the same timeActive escitalopram (Lexapro) 20 MG tablet Take 20 mg by mouth Daily03/14/2023ctive Lopressor 50 MG tablet 1 (one) time each day at the same timeActive estradiol (Estrace) 0.1 MG/GM vaginal cream Indications:Postmenopausal state,Pain in female genitalia on intercourseApply 1/2 APPLICATOR daily for 2 weeks; then twice weekly thereafter. 42.5 g ctive desvenlafaxine (Pristiq) 50 MG 24 hr tablet Take 50 mg by mouth in the morning.04/29/2024ctive mirtazapine (Remeron) 30 MG tablet Take 30 mg by mouth at zjoxily6204/02/2024ctive Active Problems ProblemNoted DateDiagnosed DateAdjustment disorder with qefdbxo5411/07/2018Severe episode of recurrent major depressive disorder, without psychotic features 05/10/2017Calculus of mvajwy6006/11/20146286Uoauayyqjn88/29/2015 Immunizations ImmunizationAdministration DatesNext DueInfluenza, Ijcrxuokwiv22/03/2022, 03/10/2021Influenza, seasonal, fixrjstyun69/14/2020Novel apijtzxjt-X2V4-11, preservative-free03/24/2009Pneumococcal Polysaccharide VQTE8232Tdap 03/01/2016 Family History RelationNameStatusCommentsFatherDeceasedMotherDeceased Social History Tobacco UseTypesPacks/DayYears UsedDateSmoking Tobacco: NeverSmokeless Tobacco: Never Tobacco Cessation:Counseling Given: Not Answered Alcohol UseStandard Drinks/WeekCommentsNot Currently0 (1 standard drink = 0.6 oz pure alcohol)CommentsNoSex and Gender InformationValueDate RecordedSex Assigned at BirthNot on fileLegal MsuWbxmlu83/15/2023 6:56 PM EDTGender Identity Not on fileSexual OrientationNot on file Last Filed Vital Signs Vital SignReadingTime TakenCommentsBlood Vleabjdp916/7806 11:47 AM EDT Pulse--Temperature--Respiratory Rate--Oxygen Saturation--Inhaled Oxygen Concentration--Einfqy89.8 kg (165 lb)05/05/2024 2:11 PM QKQIhklma435.1 cm (5' 5 )05/05/2024 2:11 PM ESTBody Mass Index27.4605/05/2024 2:11 PM EST Plan of Treatment Not on file Insurance * Guarantor: Eli Boyce TypeRelation to PatientDate of BirthPhone Billing AddressPersonal/DmpgaxVjgr1965 [facility] [address] Care Teams Team MemberRelationshipSpecialtyStart DateEnd Bala Unger MD PCP - GeneralFami Medicine10/18/23
--- OUTSIDE RECORDS SUMMARY | 2025-04-28 09:37 | XMS_ITS | Clinical Summary ---
Author Organization [email or web address] s tem Address [id number] [place] [address] Care Team Providers Care Salt Plant Operator Name Role Phone Bala Unger MD Primary Care Provider [phone] Allergies Active AllergyReactionsCriticalityNoted DateCommentsNo Known Drug Allergies 11/23/2016 Medications * This document contains information received from the source organization and may not represent a complete record from that organization. MedicationSigDispense QuantityRefillsLast FilledStart DateEnd DateStatus CHOLECALCIFEROL, VITAMIN D3, (VITAMIN D3 ORAL) Take by mouth.Active metoprolol tartrate (LOPRESSOR) 50 mg tablet Take 50 mg by mouth 2 (two) times a day.Active ondansetron (ZOFRAN) 4 mg tablet Take 1 tablet (4 mg total) by mouth 2 (two) times a day as needed for nausea. 20 tablet 2Active hydrOXYzine (ATARAX) 25 mg tablet Take 1 tablet (25 mg total) by mouth every 6 (six) hours as needed for anxiety. 5Active desvenlafaxine (PRISTIQ) 100 mg 24 hr tablet Indications:Severe episode of recurrent major depressive disorder, without psychotic features (CMS-HCC)Take 1 tablet (100 mg total) by mouth in the morning. 90 tablet 5Active amitriptyline (ELAVIL) 50 mg tablet Take 1 tablet (50 mg total) by mouth nightly. 90 tablet 5Active ARIPiprazole (ABILIFY) 5 mg tablet Indications:Severe episode of recurrent major depressive disorder, without psychotic features (CMS-HCC)Take 1 tablet (5 mg total) by mouth in the morning. 5Active lamoTRIgine (LaMICtal) 25 mg tablet Indications:Severe episode of recurrent major depressive disorder, without psychotic features (CMS-HCC)Take 2 tablets (50 mg total) by mouth in the morning. 180 tablet 5Active lamoTRIgine (LaMICtal) 25 mg tablet Indications:Severe episode of recurrent major depressive disorder, without psychotic features (CMS-HCC)TAKE 1 TABLET DAILY X 2 WEEKS, THEN 2 TABLETS DAILY X 2 WEEKS 42 tablet Discontinued(Reorder) ARIPiprazole (ABILIFY) 10 mg tablet Indications:Severe episode of recurrent major depressive disorder, without psychotic features (CMS-HCC)Take 0.5 tablets (5 mg total) by mouth in the morning.Discontinued lamoTRIgine (LaMICtal) 25 mg tablet Indications:Severe episode of recurrent major depressive disorder, without psychotic features (CMS-HCC)Take 2 tablets (50 mg total) by mouth in the morning. 180 tablet Discontinued Active Problems ProblemNoted DateDiagnosed DateAdjustment disorder with lusjzyo5911/07/2018Severe episode of recurrent major depressive disorder, without psychotic features 05/10/2017 Encounters * This document contains information received from the source organization and may not represent a complete record from that organization. DateTypeDepartmentCare GpcnBcamehibvwg72/11/2025Refill [facility] [address] [place] [address] Benja Villegas MD Severe episode of recurrent major depressive disorder, without psychotic features (CMS-HCC)04/18/2025Refill [facility] [address] [place] [address] Benja Villegas MD Severe episode of recurrent major depressive disorder, without psychotic features (CMS-HCC)04/15/2025Refill [facility] [address] [place] [phone] Benja Villegas MD Severe episode of recurrent major depressive disorder, without psychotic features ([facility])03/23/2025 1:30 PM ESTTelemedicine [facility] [address] [facility] [address] [facility] [place] [place] [phone] Benja Villegas MD Severe episode of recurrent major depressive disorder, without psychotic features ([facility]) (Primary Dx); Adjustment disorder with hmnqokw1503/06/2025Travelfrom Last 3 Months Social History Tobacco UseTypesPacks/DayYears UsedDateSmoking Tobacco: Never AssessedChildcare AnswerDate LozpukcvSnkkwzcdhSwumcpf27/12/2019EmploymentAnswerDate Recorded JzwcgbmrjpDeaeopn71/12/2019Purpose - LifeAnswerDate RecordedPurpose and direction in vyofGnkodgi78/11/2021CommentsUnknownSex and Gender InformationValueDate RecordedSex Assigned at QiwcnAjletz50/19/2024 8:32 PM EST Legal ClyViqhit97/06/2015 11:24 AM EDTGender KznrrefnMgnubn86/19/2024 8:32 PM ESTSexual TshryvoutjiTvhtlqsv83/19/2024 8:32 PM EST Plan of Treatment Health MaintenanceDue DateLast DoneCommentsDepression Hijnwqdew84/15/1975Tobacco Sosikjjpr57/15/1975Adult BMI Hvxwyszvr08/15/1981Pap Smear01/27/1984Zoster (Shingles) Vaccine (1 of 2)2013COVID-19 Vaccine ( season) , 06/11/2020, 06/09/2020, Additional history existsInfluenza Xljawho18/05/2021, 02/13/2022, 03/10/2021, Additional history exists DTaP,Tdap and Td Vaccines (2 - Td or Tdap)61RSV ( or age 60+ yrs) (1 - 1-dose 75+ series)2038 Medical Devices Not on file Insurance * Guarantor: Eli Boyce KAccount TypeRelation to PatientDate of BirthPhone Billing AddressPersonal/AcbouiGfrv[address] [address] Care Teams Team MemberRelationshipSpecialtyStart DateEnd Date Bala Unger MD PCP - GeneralFamily Pixlpapv39/10/22
--- OUTSIDE RECORDS SUMMARY | 2025-04-28 09:38 | XMS_ITS | Encounter Summary ---
Author Organization [facility] Address [id number] [address] [place] [address] Care Team Providers Care Director Of User Experience Name Role Phone Bala Unger MD Primary Care Provider [phone] Reason for Visit * ReasonCommentsMed Refill Encounter Details DateTypeDepartmentCare Team (Latest Contact Info)Godjphyhszh16/03/2025Refill [facility] [address] [facility] [place] [phone] Benja Villegas MD [address] [place] [address] Severe episode of recurrent major depressive disorder, without psychotic features (CMS-HCC) Social History Tobacco UseTypesPacks/DayYears UsedDateSmoking Tobacco: Never AssessedChildcare AnswerDate RgafjmivTqiyotrhcBtlzjym86/12/2019EmploymentAnswerDate Recorded QdxjjrphnbHcrpuvq40/12/2019Purpose - LifeAnswerDate RecordedPurpose and direction in pngtLtzgcwd24/11/2021CommentsUnknownSex and Gender InformationValueDate RecordedSex Assigned at PsnjnDetbxj74/19/2024 8:32 PM EST Legal EylLwostr34/06/2015 11:24 AM EDTGender RtyauutsOfsqrw09/19/2024 8:32 PM ESTSexual XypiwonfytkWjktnsna54/19/2024 8:32 PM ESTdocumented as of this encounter Plan of Treatment Not on file documented as of this encounter Visit Diagnoses Diagnosis Severe episode of recurrent major depressive disorder, without psychotic features ([facility]) documented in this encounter Care Teams Team MemberRelationshipSpecialtyStart DateEnd Date Bala Unger MD PCP - GeneralFamily Gjqbfdka27/10/22documented as of this encounter
--- OUTSIDE RECORDS SUMMARY | 2025-04-28 09:38 | XMS_ITS | Clinical Summary ---
Author Organization [facility] Address [address] [place], [place] [address] Care Team Providers Care Switchboard Wirer Name Role Phone Bala Unger MD Primary Care Provider [phone] Allergies No known active allergies Medications MedicationSigDispense QuantityRefillsLast FilledStart DateEnd DateStatus Cholecalciferol, Vitamin D3, (VITAMIN D-3) 2,000 unit cap Take by mouth once daily.Active amitriptyline (ELAVIL) 25 mg tablet Take 25 mg by mouth daily at bedtime.Active tamsulosin (FLOMAX) 0.4 mg cp24 Take 1 capsule by mouth daily at bedtime. 30 capsule ctive docusate sodium (COLACE) 100 mg capsule Take 1 capsule by mouth twice daily. 60 capsule ctive ibuprofen (MOTRIN) 600 mg tablet Take 600 mg by mouth every 6 hours as needed.Active hydrochlorothiazide (HYDRODIURIL, ESIDRIX) 25 mg tablet Take 1 tablet by mouth twice daily. 60 tablet ctive venlafaxine (EFFEXOR) 37.5 mg tablet Take 75 mg by mouth once daily.Active estrogens conjugated (PREMARIN) 0.3 mg tablet Take 1 tablet by mouth once daily.ctive HYDROcodone-acetaminophen (NORCO) 5-325 mg per tablet Take 1 tablet by mouth every 6 hours as needed. 15 tablet ctive docusate sodium (COLACE) 100 mg capsule Take 1 capsule by mouth twice daily. 30 capsule ctive ibuprofen (MOTRIN) 600 mg tablet Take 1 tablet by mouth every 6 hours as needed for Pain. 28 tablet ctive HYDROcodone-acetaminophen (NORCO) 5-325 mg per tablet Take 1 tablet by mouth every 6 hours as needed. 15 tablet ctive Active Problems ProblemNoted DateDiagnosed DateUTI (lower urinary tract infection)06/25/2014 Kidney stone06/11/2014Calculus of gsbdwa6406/11/20141893Kfsiux29/29/2015Osteopenia 06/11/2014Female stress wmkekdhyuscq79/29/6087Tjziyqlc89/04/2014 Family History Medical HistoryRelationCommentsKidney stones [Other]BrotherRheumatoid Arthritis [Other]BrotherIschemic Heart DiseaseFatherKidney stones [Other]FatherStroke FatherHeavy smoker and drinkerCancerMaternal GrandmotherColon Cancer Osteroarthritis [Other]Maternal GrandmotherPain [Other]MotherJoint/muscle pain RelationStatusCommentsBrotherFatherMaternal GrandmotherMother Social History Tobacco UseTypesPacks/DayYears UsedDateSmoking Tobacco: NeverSmokeless Tobacco: NeverAlcohol UseStandard Drinks/WeekCommentsNo0 (1 standard drink = 0.6 oz pure alcohol)Area Deprivation IndexAnswerDate RecordedNational Score (1-100), lower number is lower ynub454109/13/2022State Score (1-10), lower number is lower risk3 3Data from: https://www.neighborhoodatlas.medicine.[facility].edu/. Last address used for afcqjbzbjdz[address] [place], [place] [address]/13/2022CommentsNoSex and Gender InformationValueDate RecordedSex Assigned at BirthNot on fileLegal FcyPxlobj11/02/2012 9:27 AM ESTGender IdentityNot on fileSexual OrientationNot on fileOccupationIndustryJob Start DateJob End DatePHARMACY TECHNot on fileNot on fileNot on file Last Filed Vital Signs Vital SignReadingTime TakenCommentsBlood Qbuaknje076/8701/ 8:11 AM EST Ynyje266904/14/2015 10:38 PM AJPWfdoqllsdwy08.5 ??C (97.7 ??F)04/14/2015 5:34 PM ESTRespiratory Qcpz756306/15/2014 10:38 PM ESTOxygen Aonrwagnil012%04/14/2015 10:38 PM ESTInhaled Oxygen Concentration--Sghpxz54.9 kg (154 lb 1.6 oz) 06/06/2024 8:11 AM ADUOjzxsf096.6 cm (5' 4 )06/06/2024 8:11 AM ESTBody Mass Index26.45006/06/2024 8:11 AM EST Plan of Treatment Health MaintenanceDue DateLast DoneCommentsAnxiety Sgqwjjwqo04/15/1981Depression Tgeilhzcq36/15/1981HIV Cqiebilzi80/15/1981Cervical Cancer Lneytoccu87/15/1984 Mammogram Srznylooo85/15/2003CT Lhtvthfrcohz34/15/2008Cologuard (FIT-DNA) 01/27/20081159Bcxhxoobcgf84/15/2008Colorectal Cancer Jpnexmqqb51/15/2008Fecal Occult Blood01/27/2008Lipid Zaljhmpax30/15/3047Bqqcrhsxjrcfu67/15/2008Shingrix Vaccine (1 of 2)2013Pneumococcal Vaccine: 50+ (2 of 2 - PCV), 05/14/2011Covid-19 Vaccine ( season)/, 06/11/2020, 06/09/2020, Additional history existsInfluenza Vaccine (#1) /07/2021, 03/10/2021, 02/25/2020, Additional history existsDiabetes Ezbuqsdqp23/02/2022, 04/14/2015, 01/06/2015, Additional history exists DTaP,Tdap,Td Vaccine (2 - Td or Tdap)RSV Vaccine (1 - 1-dose 75+ series)2038Hepatitis C GodarzxbwYznjekwmu40/24/2014 Medical Devices ImplantedTypeAreaManufacturerDevice IdentifierShelf Expiration DateModel / Serial / LotStent Uret 7fr 26cm W/O Gw Inl - [id number] Implanted:Qty: 1 on 07/06/2014 at [facility] StentsLeft: Ureter [employer] [id number]/01/[id number] / / [id number] Procedures Procedure NamePriorityDate/TimeAssociated DiagnosisCommentsBASIC METABOLIC PANEL STAT106/15/2014 7:43 PM EST HEP REMOTE PANEL AZLqjvbqn93/24/2014 3:24 PM EST Myalgia Hand pain from Last 3 Months or Most Recently Relevant to Health Maintenance Results * BASIC METABOLIC PNL (04/14/2015 7:43 PM EST)ComponentValueRef RangeTest Method Analysis TimePerformed AtPathologist OetzfarnwBiqpymz7098 - 100 mg/dL 04/14/2015 8:24 PM [facility] LNNXGYCGTTEIM268 - 25 mg/dL 04/14/2015 8:24 PM [facility] LABORATORYCreatinine0.760.70 - 1.40 mg/dL04/14/2015 8:24 PM [facility] DRPQOAGDSQZitccv843414 - 148 mmol/L106/15/2014 8:24 PM [facility] LABORATORYPotassium4.0 3.5 - 5.0 mmol/L106/15/2014 8:24 PM [facility] LABORATORYChloride 04906 - 110 mmol/L106/15/2014 8:24 PM [facility] LRTYOPKFJDBZ432 23 - 32 mmol/L106/15/2014 8:24 PM [facility] LABORATORYAnion Gap 140 - 15 mmol/L106/15/2014 8:24 PM [facility] LABORATORYCalcium 9.08.5 - 10.5 mg/dL04/14/2015 8:24 PM [facility] LABORATORYeGFR- >6004/14/2015 8:24 PM [facility] LABORATORYeGFR- All Other Races>60.04/14/2015 8:24 PM [facility] Comment: eGFR (Estimated GFR) Units of [...] eGFR may not accurately reflect actual GFR. Specimen (Source)Anatomical Location / LateralityCollection Method / Volume Collection TimeReceived TimeBlood specimen (specimen)BLOOD SPECIMEN / Unknown 04/14/2015 7:43 PM EST04/14/2015 7:52 PM EST Narrative Authorizing ProviderResult TypeResult StatusStjoanie Mendoza MDLABORATORYFinal ResultPerforming OrganizationAddressCity/State/ZIP CodePhone Number [facility] [address] [place] [address] * (ABNORMAL) HEP REMOTE PANEL BL (07/07/2013 3:24 PM EST)ComponentValueRef Range Test MethodAnalysis TimePerformed AtPathologist SignatureHep B Core Ab, Total NegativeNEGATCLEVELAND [facility]IN LABORATORYHep C Antibody IANegativeNEGAT [facility] LABORATORYHBsAgNegativeNEGATCLEVELAND [facility] LABORATORYHep B Surface Ab, QualPositive(A)NEGATCLEVELBIGFORK VALLEY HOSPITAL MAIN LABORATORYComment: These results are consistent with previous exposure and/or immunity to the hepatitis B virus antigen. Specimen (Source)Anatomical Location / LateralityCollection Method / Volume Collection TimeReceived TimeBlood specimen (specimen)BLOOD SPECIMEN / Unknown 07/07/2013 3:24 PM EST07/07/2013 3:26 PM EST Narrative Authorizing ProviderResult TypeResult StatusBebrent Galeas APRN.CNPLABORATORY Final ResultPerforming OrganizationAddressCity/State/ZIP CodePhone Number [facility] [address] [place] [address] from Last 3 Months or Most Recently Relevant to Health Maintenance Insurance Care Teams Team MemberRelationshipSpecialtyStart DateEnd Bala Unger MD [address] [place] [address] [facility]08/22/00
--- OUTSIDE RECORDS SUMMARY | 2025-04-28 09:38 | XMS_ITS | Encounter Summary ---
Author Organization [facility] Address [id number] [address] [place] [address] Care Team Providers Care Director Of Medical Education Name Role Phone Bala Unger MD Primary Care Provider [phone] Reason for Visit * ReasonCommentsMed Refill Encounter Details DateTypeDepartmentCare Team (Latest Contact Info)Zlrvznexkbo79/06/2025Refill [facility] [address] [place] [phone] Benja Villegas MD [address] [place] [address] Severe episode of recurrent major depressive disorder, without psychotic features (CMS-HCC) Social History Tobacco UseTypesPacks/DayYears UsedDateSmoking Tobacco: Never AssessedChildcare AnswerDate EhehbympPkpmpeujbRaaffuh93/12/2019EmploymentAnswerDate Recorded QnpzmanfnsDwotplf34/12/2019Purpose - LifeAnswerDate RecordedPurpose and direction in ebkkGeavdai51/11/2021CommentsUnknownSex and Gender InformationValueDate RecordedSex Assigned at ZsdblTuzzdl45/19/2024 8:32 PM EST Legal UvfOiwmpe79/06/2015 11:24 AM EDTGender JlememzbOeuhhb65/19/2024 8:32 PM ESTSexual KyuhtlkrxujNdbrrezw56/19/2024 8:32 PM ESTdocumented as of this encounter Miscellaneous Notes * Telephone Encounter - Yu Gore CMA - 04/18/2025 6:59 AM EST Dose Change documented in this encounter Plan of Treatment Not on file documented as of this encounter Visit Diagnoses Diagnosis Severe episode of recurrent major depressive disorder, without psychotic features ([facility]) documented in this encounter Care Teams Team MemberRelationshipSpecialtyStart DateEnd Date Bala Unger MD PCP - GeneralFamily Dgolohrl24/10/22documented as of this encounter
--- OUTSIDE RECORDS SUMMARY | 2025-04-28 09:38 | XMS_ITS | Encounter Summary ---
Author Organization [facility] Address [id number] [address] [place] [address] Care Team Providers Care It Service Delivery Manager Name Role Phone Bala Unger MD Primary Care Provider [phone] Reason for Visit * ReasonCommentsMed Refill Encounter Details DateTypeDepartmentCare Team (Latest Contact Info)Mehmhvbmtze41/11/2025Refill [facility] [address] [facility] [address] [place] [phone] Benja Villegas MD [address] [place] [address] Severe episode of recurrent major depressive disorder, without psychotic features (CMS-HCC) Social History Tobacco UseTypesPacks/DayYears UsedDateSmoking Tobacco: Never AssessedChildcare AnswerDate AvbwvxjvJtrzatdhwCpmglyr14/12/2019EmploymentAnswerDate Recorded GeiwpuglqpExuhhtd66/12/2019Purpose - LifeAnswerDate RecordedPurpose and direction in uxazZbdcsdc03/11/2021CommentsUnknownSex and Gender InformationValueDate RecordedSex Assigned at QalpdHjhsav33/19/2024 8:32 PM EST Legal ObaBpwqjt15/06/2015 11:24 AM EDTGender MfgobhljNfxfcf77/19/2024 8:32 PM ESTSexual FyyexyunupvAjoffego55/19/2024 8:32 PM ESTdocumented as of this encounter Plan of Treatment Not on file documented as of this encounter Visit Diagnoses Diagnosis Severe episode of recurrent major depressive disorder, without psychotic features ([facility]) documented in this encounter Care Teams Team MemberRelationshipSpecialtyStart DateEnd Date Bala Unger MD PCP - GeneralFamily Cvlgfuot77/10/22documented as of this encounter
--- NOTE | 2025-04-28 10:24 | US_ITS ---
The [address] [address] Patient Name: CARMELO CHUNG MRN: [id number] date: 1965 Sex: F Assigned Patient Location: US Current Patient Location: US Accession/Order Number: [id number] Exam Date: 04/28/2025 10:25 Report Date: 04/28/2025 12:27 At the request of: PIERO WILKES MD Procedure: US renal BI BILATERAL RENAL AND BLADDER ULTRASOUND CLINICAL HISTORY: Follow-up kidney stones . Chronic hematuria. COMPARISON: 12/29/2024 Estimation of renal size is approximately 10.0 cm on the right and 8.6 cm on the left. There is an echogenic focus at the inferior pole of the right kidney with twinkle artifact measuring 6 mm that may be a stone. There is also potential stone at the midpole measuring 4 mm. There are couple additional possible midpole stones on the left measuring 4 - 5 mm in size. There is no hydronephrosis. No renal mass lesions were imaged. There is no perinephric fluid. The urinary bladder is poorly distended with a volume of 39 mL. No contour or intraluminal abnormalities are seen. US/US renal BI IMPRESSION: SUSPECTED BILATERAL RENAL STONES. NO OBSTRUCTIVE UROPATHY. Impression dictated by: Claudine Heard M.D. 04/28/2025 12:27 PM Dictation Location: [place] [address] Electronically authenticated by: [id number] Y Date: 04/28/2025 12:27
--- NOTE | 2025-04-28 10:36 | XR_ITS ---
The [address] [address] Patient Name: CARMELO CHUNG MRN: [id number] date: 1965 Sex: F Assigned Patient Location: US Current Patient Location: US Accession/Order Number: [id number] Exam Date: 04/28/2025 10:48 Report Date: 04/28/2025 12:53 At the request of: PIERO WILKES MD Procedure: XR abdomen 1V SINGLE VIEW ABDOMEN COMPARISON: 11/24/2024 and ultrasound 05/29/2024 CLINICAL DATA: Follow-up kidney stones Supine views of the abdomen and pelvis were obtained. There is a large amount of colonic stool. There are no dilated small bowel loops. No soft tissue masses are seen. There is a calcification overlying the inferior pole of the right kidney measuring 3 mm in size which may be a stone. It was also present on the comparison. No other suspect radiopaque renal or ureteral stones are visualized. The bony structures are intact. XR/XR abdomen 1V IMPRESSION: SLIGHT LIMITED STUDY DUE TO INCREASED COLONIC STOOL. CONTINUED RIGHT NEPHROLITHIASIS. Impression dictated by: Claudine Heard M.D. 04/28/2025 12:53 PM Dictation Location: [place] [address] Electronically authenticated by: [id number] Y Date: 04/28/2025 12:53
== END 2025-04-28 09:35 | disposition home or self-care (01) ==
LOC: US 09:35
PROVIDERS: PCP Family Medicine; Visit Provider Urology
DX: N20.0 Calculus of kidney (principal)
CPT/HCPCS: 74018; 76775